=== PATIENT | male | born 1980 | race Caucasian/White ===

== ENCOUNTER 2017-05-10 17:50 | Emergency (ER) | payer SELFPAY ==
[~2017-05-10 17:50] MED LIST: ALBU8.5H2 IH; AMOX1TAB63 PO; ATEN-156 PO; DOXY100C2 PO; HYDR-690 PO; HYDR25CA5 PO; LEVOTHYROXINE; LVT.05T PO; MECL-124 PO; METO-354 PO; NAPR-243 PO; NAPR550T PO; ONDAN4ODT PO; PNT40TEC PO; PRM25T PO; SCOP1PAT TD; SERT25TA PO; TRIA16.5 NS
--- OUTSIDE RECORDS SUMMARY | 2017-05-10 17:55 | XMS REPORT ---
Author Author [facility] Address [address] [place] [address] Care Team Providers Care Process Safety Specialist Name Role Phone CHELSY MORALES Unavailable PROBLEMS Type Condition ICD9-CM Code MSN41-QI Code Onset Dates Condition Status SNOMED Code Problem Moderate persistent asthma without complication J45.40 Active 685614944 Problem Hypothyroidism, unspecified type E03.9 Active 97746932 ALLERGIES No Information SOCIAL HISTORY Never Assessed PLAN OF CARE VITAL SIGNS MEDICATIONS Unknown Medications RESULTS Name Result Date Reference Range TSH 2016-08-22 TSH 2.740 0.450-4.500 CBC 2016-08-22 WBC 9.7 3.4-10.8 RBC 5.25 4.14-5.80 Hemoglobin 16.0 12.6-17.7 Hematocrit 46.8 37.5-51.0 MCV 89 79-97 MCH 30.5 26.6-33.0 MCHC 34.2 31.5-35.7 RDW 13.4 12.3-15.4 Platelets 311 150-379 Neutrophils 77 Lymphs 17 Monocytes 5 Eos 1 Basos 0 Neutrophils (Absolute) 7.3 1.4-7.0 Lymphs (Absolute) 1.7 0.7-3.1 Monocytes(Absolute) 0.5 0.1-0.9 Eos (Absolute) 0.1 0.0-0.4 Baso (Absolute) 0.0 0.0-0.2 Immature Granulocytes 0 Immature Grans (Abs) 0.0 0.0-0.1 CMP 2016-08-22 Glucose, Serum 104 65-99 BUN 11 6-20 Creatinine, Serum 0.83 0.76-1.27 eGFR If NonAfricn Am 113 >59 eGFR If Africn Am 131 >59 BUN/Creatinine Ratio 13 8-19 Sodium, Serum 141 134-144 Potassium, Serum 4.3 3.5-5.2 Chloride, Serum 102 96-106 Carbon Dioxide, Total 22 18-29 Calcium, Serum 9.9 8.7-10.2 Protein, Total, Serum 7.8 6.0-8.5 Albumin, Serum 4.6 3.5-5.5 Globulin, Total 3.2 1.5-4.5 A/G Ratio 1.4 1.2-2.2 Bilirubin, Total 0.4 0.0-1.2 Alkaline Phosphatase, S 103 39-117 AST (SGOT) 15 0-40 ALT (SGPT) 27 0-44 PROCEDURES Procedure Date Ordered Result Body Site ASSAY THYROID STIM HORMONE August 22, 2016 COMPLETE CBC W/AUTO DIFF WBC August 22, 2016 VENIPUNCT, ROUTINE* August 22, 2016 COMPREHEN METABOLIC PANEL August 22, 2016 IMMUNIZATIONS No Known Immunizations MEDICAL (GENERAL) HISTORY Type Description Date Medical History asthma Medical History hypothyroid Medical History Gerd Surgical History heart cath no interventions Hospitalization History asthma, shortness of breath x4 Hospitalization History chest pain
--- OUTSIDE RECORDS SUMMARY | 2017-05-10 17:55 | XMS REPORT ---
Author Author [facility] Address [address] [place] [address] Care Team Providers Care Herpetologist Name Role Phone CHELSY MORALES Unavailable PROBLEMS Type Condition ICD9-CM Code [id number] Code Onset Dates Condition Status SNOMED Code Problem Moderate persistent asthma without complication J45.40 Active 925404366 Problem Hypothyroidism, unspecified type E03.9 Active [id number] ALLERGIES No Known Allergies SOCIAL HISTORY Never Assessed PLAN OF CARE Activity Details Follow Up 4 Weeks Reason:asthma VITAL SIGNS Height 69 in 2016-08-21 Weight 213.5 lbs 2016-08-21 Temperature 97.7 degrees Fahrenheit 2016-08-21 Heart Rate 72 bpm 2016-08-21 Respiratory Rate 20 2016-08-21 Oximetry 99 % 2016-08-21 BMI 31.52 kg/m2 2016-08-21 Blood pressure systolic 156 mmHg 2016-08-21 Blood pressure diastolic 114 mmHg 2016-08-21 MEDICATIONS Medication Instructions Dosage Frequency Start Date End Date Duration Status Omeprazole 20 mg Orally Once a day take 1 capsules by Oral route before meals 2 times per day 24h Jul, 30 days Active Nebulizer - inhalation every 6 hours as needed as directed Aug, Active Albuterol Sulfate 0.63 mg/3 mL Inhalation every 6 hrs 3 ml as needed 6h Apr, Active Symbicort 160-4.5 mcg/actuation Inhalation Twice a day inhale 2 puffs by inhalation route 2 times per day in the morning and evening 12h Jun, Nov, 30 days Active ProAir HFA 108 (90 Base) MCG/ACT Inhalation every 4 hrs 2 puffs as needed 4h Active PredniSONE 20 MG Orally Once a day 2 tablets 24h Aug, Aug, 5 days Active RESULTS No Results PROCEDURES Procedure Date Ordered Result Body Site MEASURE BLOOD OXYGEN LEVEL August 21, 2016 IMMUNIZATIONS No Known Immunizations MEDICAL (GENERAL) HISTORY Type Description Date Medical History asthma Medical History hypothyroid Medical History Gerd Surgical History heart cath no interventions Hospitalization History asthma, shortness of breath x4 Hospitalization History chest pain
--- OUTSIDE RECORDS SUMMARY | 2017-05-10 17:57 | XMS REPORT | Continuity of Care Document ---
Author Author [facility] Organization [facility] Address Unknown Phone Unavailable Allergies Active Description Code Type Severity Reaction Onset Reported/Identified Relationship to Patient Clinical Status Yes No Known Drug Allergies [id number] Drug Allergy Unknown N/ A 05/04/2011 Medications Problems Date Dx Coded Attending Type Code Diagnosis Diagnosed By 10/05/2011 BELKYS PENA DO 578.1 Blood In Stool 10/05/2011 BELKYS PENA DO 599.70 Hematuria Unspecified 10/05/2011 ANNEL PNEA DOA K 780.4 Dizziness And Giddiness 10/05/2011 ANNEL PENA DOA K 784.0 Headache 10/05/2011 ANNEL PENA DOA K 790.4 Abnormal Lft (elevated) 10/05/2011 ANNEL PENA DOA K 799.22 Irritability 10/05/2011 PENA ANNEL PANCHALA K V58.69 LONG-TERM (CURRENT) USE OF OTHER MEDICATIONS 10/05/2011 BELKYS PENA DO 578.1 Blood In Stool 10/05/2011 ANNEL PENA DOA K 599.70 Hematuria Unspecified 10/05/2011 ANNEL PENA DOA K 780.4 Dizziness And Giddiness 10/05/2011 ANNEL PENA DOA K 784.0 Headache 10/05/2011 ANNEL PENA DOA K 790.4 Abnormal Lft (elevated) 10/05/2011 ANNEL PENA DOA K 799.22 Irritability 10/05/2011 PENA ANNEL PANCHALA K V58.69 LONG-TERM (CURRENT) USE OF OTHER MEDICATIONS 10/05/2011 578.1 Blood In Stool 10/05/2011 599.70 Hematuria Unspecified 10/05/2011 780.4 Dizziness And Giddiness 10/05/2011 784.0 Headache 10/05/2011 790.4 Abnormal Lft (elevated) 10/05/2011 799.22 Irritability 10/05/2011 V58.69 LONG-TERM (CURRENT) USE OF OTHER MEDICATIONS 10/05/2011 578.1 Blood In Stool 10/05/2011 599.70 Hematuria Unspecified 10/05/2011 780.4 Dizziness And Giddiness 10/05/2011 784.0 Headache 10/05/2011 790.4 Abnormal Lft (elevated) 10/05/2011 799.22 Irritability 10/05/2011 V58.69 LONG-TERM (CURRENT) USE OF OTHER MEDICATIONS 10/05/2011 578.1 Blood In Stool 10/05/2011 599.70 Hematuria Unspecified 10/05/2011 780.4 Dizziness And Giddiness 10/05/2011 784.0 Headache 10/05/2011 790.4 Abnormal Lft (elevated) 10/05/2011 799.22 Irritability 10/05/2011 V58.69 LONG-TERM (CURRENT) USE OF OTHER MEDICATIONS 10/05/2011 578.1 Blood In Stool 10/05/2011 599.70 Hematuria Unspecified 10/05/2011 780.4 Dizziness And Giddiness 10/05/2011 784.0 Headache 10/05/2011 790.4 Abnormal Lft (elevated) 10/05/2011 799.22 Irritability 10/05/2011 V58.69 LONG-TERM (CURRENT) USE OF OTHER MEDICATIONS 10/05/2011 MICHELLE MOLINA APRN 578.1 Blood In Stool 10/05/2011 MICHELLE MOLINA APRN 599.70 Hematuria Unspecified 10/05/2011 MICHELLE MOLINA APRN 780.4 Dizziness And Giddiness 10/05/2011 MICHELLE MOLINA APRN 784.0 Headache 10/05/2011 MICHELLE MOLINA APRN 790.4 Abnormal Lft (elevated) 10/05/2011 MICHELLE MOLINA APRN 799.22 Irritability 10/05/2011 MICHELLE MOLINA APRN V58.69 LONG-TERM (CURRENT) USE OF OTHER MEDICATIONS 10/05/2011 BOBBI TELLO APRN R 578.1 Blood In Stool 10/05/2011 BOBBI TELLO APRN R 599.70 Hematuria Unspecified 10/05/2011 JUNAID TELLO APRNINA R 780.4 Dizziness And Giddiness 10/05/2011 BOBBI TELLO APRN R 784.0 Headache 10/05/2011 OMER GUN SYNCHRONIZER, BOBBI R 790.4 Abnormal Lft (elevated) 10/05/2011 OMER GUN SYNCHRONIZER, BOBBI R 799.22 Irritability 10/05/2011 OMER GUN SYNCHRONIZER, BOBBI R V58.69 LONG-TERM (CURRENT) USE OF OTHER MEDICATIONS 10/05/2011 OMER GUN SYNCHRONIZER, BOBBI R 578.1 Blood In Stool 10/05/2011 OMER GUN SYNCHRONIZER, BOBBI R 599.70 Hematuria Unspecified 10/05/2011 OMER GUN SYNCHRONIZER, BOBBI R 780.4 Dizziness And Giddiness 10/05/2011 OMER GUN SYNCHRONIZER, BOBBI R 784.0 Headache 10/05/2011 OMER GUN SYNCHRONIZER, BOBBI R 790.4 Abnormal Lft (elevated) 10/05/2011 OMER BOYERN BOBBI R 799.22 Irritability 10/05/2011 OMER EASTMAN BOBBI R V58.69 LONG-TERM (CURRENT) USE OF OTHER MEDICATIONS 10/05/2011 OMER EASTMAN BOBBI R 578.1 Blood In Stool 10/05/2011 OMER EASTMAN BOBBI R 599.70 Hematuria Unspecified 10/05/2011 OMER EASTMAN, BOBBI R 780.4 Dizziness And Giddiness 10/05/2011 OMER BOYERN, BOBBI R 784.0 Headache 10/05/2011 OMER EASTMAN, BOBBI R 790.4 Abnormal Lft (elevated) 10/05/2011 OMER EASTMAN BOBBI R 799.22 Irritability 10/05/2011 OMER EASTMAN, BOBBI R V58.69 LONG-TERM (CURRENT) USE OF OTHER MEDICATIONS 10/05/2011 KIANNA MENESES MD 578.1 Blood In Stool 10/05/2011 KIANNA MENESES MD 599.70 Hematuria Unspecified 10/05/2011 KIANNA MENESES MD 780.4 Dizziness And Giddiness 10/05/2011 KIANNA MENESES MD 784.0 Headache 10/05/2011 KIANNA MENESES MD 790.4 Abnormal Lft (elevated) 10/05/2011 KIANNA MENESES MD 799.22 Irritability 10/05/2011 KIANNA MENESES MD V58.69 LONG-TERM (CURRENT) USE OF OTHER MEDICATIONS 10/05/2011 KIANNA MENESES MD 578.1 Blood In Stool 10/05/2011 KIANNA MENESES MD 599.70 Hematuria Unspecified 10/05/2011 KIANNA MENESES MD 780.4 Dizziness And Giddiness 10/05/2011 KIANNA MENESES MD 784.0 Headache 10/05/2011 KIANNA MENESES MD 790.4 Abnormal Lft (elevated) 10/05/2011 KIANNA MENESES MD 799.22 Irritability 10/05/2011 KIANNA MENESES MD V58.69 LONG-TERM (CURRENT) USE OF OTHER MEDICATIONS 10/05/2011 KIANNA MENESES MD 578.1 Blood In Stool 10/05/2011 KIANNA MENESES MD 599.70 Hematuria Unspecified 10/05/2011 KIANNA MENESES MD 780.4 Dizziness And Giddiness 10/05/2011 KIANNA MENESES MD 784.0 Headache 10/05/2011 KIANNA MENESES MD 790.4 Abnormal Lft (elevated) 10/05/2011 KIANNA MENESES MD 799.22 Irritability 10/05/2011 KIANNA MENESES MD V58.69 LONG-TERM (CURRENT) USE OF OTHER MEDICATIONS 10/05/2011 KIANNA MENESES MD 578.1 Blood In Stool 10/05/2011 KIANNA MENESES MD 599.70 Hematuria Unspecified 10/05/2011 KIANNA MENESES MD 780.4 Dizziness And Giddiness 10/05/2011 KIANNA MENESES MD 784.0 Headache 10/05/2011 KIANNA MENESES MD 790.4 Abnormal Lft (elevated) 10/05/2011 KIANNA MENESES MD 799.22 Irritability 10/05/2011 KIANNA MENESES MD V58.69 LONG-TERM (CURRENT) USE OF OTHER MEDICATIONS 10/05/2011 KIANNA MENESES MD 578.1 Blood In Stool 10/05/2011 KIANNA MENESES MD 599.70 Hematuria Unspecified 10/05/2011 KIANNA MENESES MD 780.4 Dizziness And Giddiness 10/05/2011 KIANNA MENESES MD 784.0 Headache 10/05/2011 KIANNA MENESES MD 790.4 Abnormal Lft (elevated) 10/05/2011 KIANNA MENESES MD 799.22 Irritability 10/05/2011 KIANNA MENESES MD V58.69 LONG-TERM (CURRENT) USE OF OTHER MEDICATIONS 10/05/2011 BECKY DOANNELA K 578.1 Blood In Stool 10/05/2011 BECKY DO, BELKYS K 599.70 Hematuria Unspecified 10/05/2011 PENA DO, BELKYS K 780.4 Dizziness And Giddiness 10/05/2011 PENA DO BELKYS K 784.0 Headache 10/05/2011 PENA DO, BELKYS K 790.4 Abnormal Lft (elevated) 10/05/2011 PENA DO, BELKYS K 799.22 Irritability 10/05/2011 PENA DO, BELKYS K V58.69 LONG-TERM (CURRENT) USE OF OTHER MEDICATIONS 10/12/2011 PENA DO BELKYS K 300.00 AN ANXIETY UNSPEC 10/12/2011 PENA DO, BELKYS K 300.00 AN ANXIETY UNSPEC 10/12/2011 300.00 AN ANXIETY UNSPEC 10/12/2011 300.00 AN ANXIETY UNSPEC 10/12/2011 300.00 AN ANXIETY UNSPEC 10/12/2011 300.00 AN ANXIETY UNSPEC 10/12/2011 MICHELLE MOLINA APRN 300.00 AN ANXIETY UNSPEC 10/12/2011 BOBBI TELLO APRN 300.00 AN ANXIETY UNSPEC 10/12/2011 BOBBI TELLO APRN 300.00 AN ANXIETY UNSPEC 10/12/2011 BOBBI TELLO APRN R 300.00 AN ANXIETY UNSPEC 10/12/2011 KIANNA MENESES MD 300.00 AN ANXIETY UNSPEC 10/12/2011 KIANNA MENESES MD 300.00 AN ANXIETY UNSPEC 10/12/2011 KIANNA MENESES MD 300.00 AN ANXIETY UNSPEC 10/12/2011 KIANNA MENESES MD 300.00 AN ANXIETY UNSPEC 10/12/2011 KIANNA MENESES MD 300.00 AN ANXIETY UNSPEC 10/12/2011 BECKY PANCHAL BELKYS K 300.00 AN ANXIETY UNSPEC 10/15/2011 PENA DO BELKYS K 242.90 HYPERTHYROIDISM 10/15/2011 PENA DO, BELKYS K 242.90 HYPERTHYROIDISM 10/15/2011 242.90 HYPERTHYROIDISM 10/15/2011 242.90 HYPERTHYROIDISM 10/15/2011 242.90 HYPERTHYROIDISM 10/15/2011 242.90 HYPERTHYROIDISM 10/15/2011 MICHELLE MOLINA APRN 242.90 HYPERTHYROIDISM 10/15/2011 OMER GUN SYNCHRONIZER, BOBBI R 242.90 HYPERTHYROIDISM 10/15/2011 OMER EASTMAN, BOBBI R 242.90 HYPERTHYROIDISM 10/15/2011 OMER BOYERN, BOBBI R 242.90 HYPERTHYROIDISM 10/15/2011 KIANNA MENESES MD 242.90 HYPERTHYROIDISM 10/15/2011 KIANNA MENESES MD 242.90 HYPERTHYROIDISM 10/15/2011 KIANNA MENESES MD 242.90 HYPERTHYROIDISM 10/15/2011 KIANNA MENESES MD 242.90 HYPERTHYROIDISM 10/15/2011 KIANNA MENESES MD 242.90 HYPERTHYROIDISM 10/15/2011 PENA DO, BELKYS K 242.90 HYPERTHYROIDISM 10/19/2011 PENA DO, BELKYS K 786.50 Chest Pain 10/19/2011 PENA DO, BELKYS K 786.50 Chest Pain 10/19/2011 786.50 Chest Pain 10/19/2011 786.50 Chest Pain 10/19/2011 786.50 Chest Pain 10/19/2011 786.50 Chest Pain 10/19/2011 MICHELLE MOLINA APRN 786.50 Chest Pain 10/19/2011 OMER EASTMAN, BOBBI R 786.50 Chest Pain 10/19/2011 OMER EASTMAN, BOBBI R 786.50 Chest Pain 10/19/2011 OMER EASTMAN, BOBBI R 786.50 Chest Pain 10/19/2011 KIANNA MENESES MD 786.50 Chest Pain 10/19/2011 KIANNA MENESES MD 786.50 Chest Pain 10/19/2011 KIANNA MENESES MD 786.50 Chest Pain 10/19/2011 KIANNA MENESES MD 786.50 Chest Pain 10/19/2011 KIANNA MENESES MD 786.50 Chest Pain 10/19/2011 PENA DO, BELKYS K 786.50 Chest Pain 10/24/2011 PENA DO, BELKYS K 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 10/24/2011 PENA DO BELKYS K 311 DEPRESSIVE DISORDER NOT ELSEWHERE CLASSIFIED 10/24/2011 PENA DO BELKYS K 401.1 HYPERTENSION, BENIGN ESSENTIAL 10/24/2011 PENA DO, BELKYS K 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 10/24/2011 PENA DO BELKYS K 311 DEPRESSIVE DISORDER NOT ELSEWHERE CLASSIFIED 10/24/2011 PENA DO, BELKYS K 401.1 HYPERTENSION, BENIGN ESSENTIAL 10/24/2011 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 10/24/2011 311 DEPRESSIVE DISORDER NOT ELSEWHERE CLASSIFIED 10/24/2011 401.1 HYPERTENSION, BENIGN ESSENTIAL 10/24/2011 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 10/24/2011 311 DEPRESSIVE DISORDER NOT ELSEWHERE CLASSIFIED 10/24/2011 401.1 HYPERTENSION, BENIGN ESSENTIAL 10/24/2011 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 10/24/2011 311 DEPRESSIVE DISORDER NOT ELSEWHERE CLASSIFIED 10/24/2011 401.1 HYPERTENSION, BENIGN ESSENTIAL 10/24/2011 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 10/24/2011 311 DEPRESSIVE DISORDER NOT ELSEWHERE CLASSIFIED 10/24/2011 401.1 HYPERTENSION, BENIGN ESSENTIAL 10/24/2011 MICHELLE MOLINA APRN 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 10/24/2011 MICHELLE MOLINA APRN 311 DEPRESSIVE DISORDER NOT ELSEWHERE CLASSIFIED 10/24/2011 MICHELLE MOLINA APRN 401.1 HYPERTENSION, BENIGN ESSENTIAL 10/24/2011 OMER EASTMAN, BOBBI R 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 10/24/2011 OMER EASTMAN, BOBBI R 311 DEPRESSIVE DISORDER NOT ELSEWHERE CLASSIFIED 10/24/2011 OMER EASTMAN BOBBI R 401.1 HYPERTENSION, BENIGN ESSENTIAL 10/24/2011 OMER GUN SYNCHRONIZER, BOBBI R 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 10/24/2011 OMER EASTMAN, BOBBI R 311 DEPRESSIVE DISORDER NOT ELSEWHERE CLASSIFIED 10/24/2011 OMER EASTMAN BOBBI R 401.1 HYPERTENSION, BENIGN ESSENTIAL 10/24/2011 OMER GUN SYNCHRONIZER, BOBBI R 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 10/24/2011 MOER EASTMAN, BOBBI R 311 DEPRESSIVE DISORDER NOT ELSEWHERE CLASSIFIED 10/24/2011 OMER EASTMAN BOBBI R 401.1 HYPERTENSION, BENIGN ESSENTIAL 10/24/2011 KIANNA MENESES MD 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 10/24/2011 KIANNA MENESES MD 311 DEPRESSIVE DISORDER NOT ELSEWHERE CLASSIFIED 10/24/2011 KIANNA MENESES MD 401.1 ESSENTIAL HYPERTENSION BENIGN 10/24/2011 KIANNA MENESES MD 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 10/24/2011 KIANNA MENESES MD 311 DEPRESSIVE DISORDER NOT ELSEWHERE CLASSIFIED 10/24/2011 KIANNA MENESES MD 401.1 ESSENTIAL HYPERTENSION BENIGN 10/24/2011 KIANNA MENESES MD 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 10/24/2011 KIANNA MENESES MD 311 DEPRESSIVE DISORDER NOT ELSEWHERE CLASSIFIED 10/24/2011 KIANNA MENESES MD 401.1 ESSENTIAL HYPERTENSION BENIGN 10/24/2011 KIANNA MENESES MD 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 10/24/2011 KIANNA MENESES MD 311 DEPRESSIVE DISORDER NOT ELSEWHERE CLASSIFIED 10/24/2011 KIANNA MENESES MD 401.1 ESSENTIAL HYPERTENSION BENIGN 10/24/2011 KIANNA MENESES MD 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 10/24/2011 KIANNA MENESES MD 311 DEPRESSIVE DISORDER NOT ELSEWHERE CLASSIFIED 10/24/2011 KIANNA MENESES MD 401.1 ESSENTIAL HYPERTENSION BENIGN 10/24/2011 PENA DO, BELKYS K 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 10/24/2011 PENA DO, BELKYS K 311 DEPRESSIVE DISORDER NOT ELSEWHERE CLASSIFIED 10/24/2011 PENA DO, BELKYS K 401.1 HYPERTENSION, BENIGN ESSENTIAL 01/02/2012 PENA DO, BELKYS K 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 01/02/2012 KIANNA MENESES MD 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 01/02/2012 ZAIRA ROBERTS, KIANNA Renner 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 01/02/2012 PENA DO, BELKYS K 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 03/15/2012 PENA DO, BELKYS K 461.9 SINUSITIS ACUTE 03/15/2012 PENA DO, BELKYS K 466.0 Bronchitis, Acute 03/15/2012 PENA DO, BELKYS K 461.9 SINUSITIS ACUTE 03/15/2012 PENA DO, BELKYS K 466.0 Bronchitis, Acute 03/15/2012 461.9 SINUSITIS ACUTE 03/15/2012 466.0 Bronchitis, Acute 03/15/2012 461.9 SINUSITIS ACUTE 03/15/2012 466.0 Bronchitis, Acute 03/15/2012 461.9 SINUSITIS ACUTE 03/15/2012 466.0 Bronchitis, Acute 03/15/2012 461.9 SINUSITIS ACUTE 03/15/2012 466.0 Bronchitis, Acute 03/15/2012 JESSE GUN SYNCHRONIZERMICHELLE Marie 461.9 SINUSITIS ACUTE 03/15/2012 MICHELLE MOLINA APRN 466.0 Bronchitis, Acute 03/15/2012 OMER GUN SYNCHRONIZER, BOBBI R 461.9 SINUSITIS ACUTE 03/15/2012 OMER GUN SYNCHRONIZER, BOBBI R 466.0 Bronchitis, Acute 03/15/2012 OMER GUN SYNCHRONIZER, BOBBI R 461.9 SINUSITIS ACUTE 03/15/2012 OMER GUN SYNCHRONIZER, BOBBI R 466.0 Bronchitis, Acute 03/15/2012 OMER GUN SYNCHRONIZER, BOBBI R 461.9 SINUSITIS ACUTE 03/15/2012 OMER GUN SYNCHRONIZER, BOBBI R 466.0 Bronchitis, Acute 03/15/2012 KIANNA MENESES MD 461.9 SINUSITIS ACUTE 03/15/2012 KIANNA MENESES MD 466.0 Bronchitis, Acute 03/15/2012 ZAIRA ROBERTS, KIANNA Renner 461.9 SINUSITIS ACUTE 03/15/2012 KIANNA MENESES MD 466.0 Bronchitis, Acute 03/15/2012 KIANNA MENESES MD 461.9 SINUSITIS ACUTE 03/15/2012 KIANNA MENESES MD 466.0 Bronchitis, Acute 03/15/2012 KIANNA MENESES MD 461.9 SINUSITIS ACUTE 03/15/2012 KIANNA MENESES MD 466.0 Bronchitis, Acute 03/15/2012 KIANNA MENESES MD 461.9 SINUSITIS ACUTE 03/15/2012 KIANNA MENESES MD 466.0 Bronchitis, Acute 03/15/2012 PENA DO, BELKYS K 461.9 SINUSITIS ACUTE 03/15/2012 PENA DO, BELKYS K 466.0 Bronchitis, Acute 05/14/2012 PENA DO, BELKYS K 244.9 HYPOTHYROIDISM 05/14/2012 PENA DO, BELKYS K 244.9 HYPOTHYROIDISM 05/14/2012 244.9 HYPOTHYROIDISM 05/14/2012 244.9 HYPOTHYROIDISM 05/14/2012 244.9 HYPOTHYROIDISM 05/14/2012 244.9 HYPOTHYROIDISM 05/14/2012 JESSE GUN SYNCHRONIZER, MICHELLE M 244.9 HYPOTHYROIDISM 05/14/2012 OMER EASTMAN BOBBI R 244.9 HYPOTHYROIDISM 05/14/2012 OMER EASTMAN BOBBI R 244.9 HYPOTHYROIDISM 05/14/2012 OMER EASTMAN BOBBI R 244.9 HYPOTHYROIDISM 05/14/2012 KIANNA MENESES MD 244.9 HYPOTHYROIDISM 05/14/2012 KIANNA MENESES MD 244.9 HYPOTHYROIDISM 05/14/2012 KIANNA MENESES MD 244.9 HYPOTHYROIDISM 05/14/2012 KIANNA MENESES MD 244.9 HYPOTHYROIDISM 05/14/2012 KIANNA MENESES MD 244.9 HYPOTHYROIDISM 05/14/2012 PENA DO, BELKYS K 244.9 HYPOTHYROIDISM 06/13/2012 PENA DO, BELKYS K 466.0 BRONCHITIS, ACUTE 06/13/2012 PENA DO, BELKYS K 569.3 RECTAL BLEEDING 06/13/2012 PENA DO, BELKYS K 786.07 WHEEZING 06/13/2012 PENA DO, BELKYS K 786.09 DYSPNEA 06/13/2012 PENA DO, BELKYS K 786.2 COUGH 06/13/2012 PENA DO, BELKYS K 466.0 BRONCHITIS, ACUTE 06/13/2012 PENA DO, BELKYS K 569.3 RECTAL BLEEDING 06/13/2012 PENA DO, BELKYS K 786.07 WHEEZING 06/13/2012 PENA DO, BELKYS K 786.09 DYSPNEA 06/13/2012 PENA DO, BELKYS K 786.2 COUGH 06/13/2012 466.0 BRONCHITIS, ACUTE 06/13/2012 569.3 RECTAL BLEEDING 06/13/2012 786.07 WHEEZING 06/13/2012 786.09 DYSPNEA 06/13/2012 786.2 COUGH 06/13/2012 466.0 BRONCHITIS, ACUTE 06/13/2012 569.3 RECTAL BLEEDING 06/13/2012 786.07 WHEEZING 06/13/2012 786.09 DYSPNEA 06/13/2012 786.2 COUGH 06/13/2012 466.0 BRONCHITIS, ACUTE 06/13/2012 569.3 RECTAL BLEEDING 06/13/2012 786.07 WHEEZING 06/13/2012 786.09 DYSPNEA 06/13/2012 786.2 COUGH 06/13/2012 466.0 BRONCHITIS, ACUTE 06/13/2012 569.3 RECTAL BLEEDING 06/13/2012 786.07 WHEEZING 06/13/2012 786.09 DYSPNEA 06/13/2012 786.2 COUGH 06/13/2012 MOLINA GUN SYNCHRONIZER, MICHELLE M 466.0 BRONCHITIS, ACUTE 06/13/2012 MOLINA GUN SYNCHRONIZER, MICHELLE M 569.3 RECTAL BLEEDING 06/13/2012 MOLINA GUN SYNCHRONIZER, MICHELLE M 786.07 WHEEZING 06/13/2012 MOLINA GUN SYNCHRONIZER, MICHELLE M 786.09 DYSPNEA 06/13/2012 MOLINA GUN SYNCHRONIZER, MICHELLE M 786.2 COUGH 06/13/2012 OMER GUN SYNCHRONIZER, BOBBI R 466.0 BRONCHITIS, ACUTE 06/13/2012 OMER GUN SYNCHRONIZER, BOBBI R 569.3 RECTAL BLEEDING 06/13/2012 OMER GUN SYNCHRONIZER, BOBBI R 786.07 WHEEZING 06/13/2012 OMER GUN SYNCHRONIZER, BOBBI R 786.09 DYSPNEA 06/13/2012 OMER GUN SYNCHRONIZER, BOBBI R 786.2 COUGH 06/13/2012 OMER GUN SYNCHRONIZER, BOBBI R 466.0 BRONCHITIS, ACUTE 06/13/2012 OMER GUN SYNCHRONIZER, BOBBI R 569.3 RECTAL BLEEDING 06/13/2012 OMER GUN SYNCHRONIZER, BOBBI R 786.07 WHEEZING 06/13/2012 OMER GUN SYNCHRONIZER, BOBBI R 786.09 DYSPNEA 06/13/2012 OMER GUN SYNCHRONIZER, BOBBI R 786.2 COUGH 06/13/2012 OMER GUN SYNCHRONIZER, BOBBI R 466.0 BRONCHITIS, ACUTE 06/13/2012 OMER GUN SYNCHRONIZER, BOBBI R 569.3 RECTAL BLEEDING 06/13/2012 OMER GUN SYNCHRONIZER, BOBBI R 786.07 WHEEZING 06/13/2012 OMER GUN SYNCHRONIZER, BOBBI R 786.09 DYSPNEA 06/13/2012 OMER GUN SYNCHRONIZER, BOBBI R 786.2 COUGH 06/13/2012 ZAIRA ROBERTS, KIANNA Renner 466.0 BRONCHITIS, ACUTE 06/13/2012 ZAIRA ROBERTS, KIANNA Renner 569.3 RECTAL BLEEDING 06/13/2012 ZAIRA ROBERTS, KIANNA D 786.07 WHEEZING 06/13/2012 ZAIRA ROBERTS, KIANNA D 786.09 DYSPNEA 06/13/2012 ZAIRA ROBERTS, KIANNA D 786.2 COUGH 06/13/2012 ZAIRA ROBERTS, KIANNA Renner 466.0 BRONCHITIS, ACUTE 06/13/2012 KIANNA MENESES MD 569.3 RECTAL BLEEDING 06/13/2012 ZAIRA ROBERTS, KIANNA D 786.07 WHEEZING 06/13/2012 ZAIRA ROBERTS, KIANNA Renner 786.09 DYSPNEA 06/13/2012 ZAIRA ROBERTS, KIANNA D 786.2 COUGH 06/13/2012 KIANNA MENESES MD 466.0 BRONCHITIS, ACUTE 06/13/2012 ZAIRA ROBERTS, KIANNA Renner 569.3 RECTAL BLEEDING 06/13/2012 ZAIRA ROBERTS KIANNA D 786.07 WHEEZING 06/13/2012 ZAIRA ROBERTS, KIANNA Renner 786.09 DYSPNEA 06/13/2012 ZAIRA ROBERTS, KIANNA Renner 786.2 COUGH 06/13/2012 KIANNA MENESES MD 466.0 BRONCHITIS, ACUTE 06/13/2012 ZAIRA ROBERTS, KIANNA Renner 569.3 RECTAL BLEEDING 06/13/2012 ZAIRA ROBERTS, KIANNA Renner 786.07 WHEEZING 06/13/2012 KIANNA MENESES MD 786.09 DYSPNEA 06/13/2012 KIANNA MENESES MD 786.2 COUGH 06/13/2012 KIANNA MENESES MD 466.0 BRONCHITIS, ACUTE 06/13/2012 KIANNA MENESES MD 569.3 RECTAL BLEEDING 06/13/2012 KIANNA MENESES MD 786.07 WHEEZING 06/13/2012 KIANNA MENESES MD 786.09 DYSPNEA 06/13/2012 ZAIRA ROBERTS, KIANNA Renner 786.2 COUGH 08/07/2012 BECKY PANCHAL, BELKYS Santamaria 786.50 CHEST PAIN 08/07/2012 786.50 CHEST PAIN 08/07/2012 786.50 CHEST PAIN 08/07/2012 786.50 CHEST PAIN 08/07/2012 786.50 CHEST PAIN 08/07/2012 MICHELLE MOLINA APRN 786.50 CHEST PAIN 08/07/2012 BOBBI TELLO APRN 786.50 CHEST PAIN 08/07/2012 OMER GUN SYNCHRONIZER, BOBBI R 786.50 CHEST PAIN 08/07/2012 OMER EASTMAN, BOBBI R 786.50 CHEST PAIN 08/07/2012 KIANNA MENESES MD 786.50 CHEST PAIN 08/07/2012 KIANNA MENESES MD 786.50 CHEST PAIN 08/07/2012 KIANNA MENESES MD 786.50 CHEST PAIN 08/07/2012 KIANNA MENESES MD 786.50 CHEST PAIN 08/07/2012 KIANNA MENESES MD 786.50 CHEST PAIN 06/06/2013 OMER EASTMAN, BOBBI R 787.01 NAUSEA WITH VOMITING 06/06/2013 OMER EASTMAN, BOBBI R 787.60 FULL INCONTINENCE OF FECES 06/06/2013 OMER EASTMAN, BOBBI R 787.01 NAUSEA WITH VOMITING 06/06/2013 OMER EASTMAN, BOBBI R 787.60 FULL INCONTINENCE OF FECES 06/06/2013 OMER EASTMAN, BOBBI R 787.01 NAUSEA WITH VOMITING 06/06/2013 OMER EASTMAN, BOBBI R 787.60 FULL INCONTINENCE OF FECES 06/06/2013 KIANNA MENESES MD 787.01 NAUSEA WITH VOMITING 06/06/2013 KIANNA MENESES MD 787.60 FULL INCONTINENCE OF FECES 06/06/2013 KIANNA MENESES MD 787.01 NAUSEA WITH VOMITING 06/06/2013 KIANNA MENESES MD 787.60 FULL INCONTINENCE OF FECES 06/06/2013 KIANNA MENESES MD 787.01 NAUSEA WITH VOMITING 06/06/2013 KIANNA MENESES MD 787.60 FULL INCONTINENCE OF FECES 06/06/2013 KIANNA MENESES MD 787.01 NAUSEA WITH VOMITING 06/06/2013 KIANNA MENESES MD 787.60 FULL INCONTINENCE OF FECES 06/06/2013 KIANNA MENESES MD 787.01 NAUSEA WITH VOMITING 06/06/2013 KIANNA MENESES MD 787.60 FULL INCONTINENCE OF FECES 10/22/2013 OMER EASTMAN, BOBBI R 786.39 OTHER HEMOPTYSIS 10/22/2013 KIANNA MENESES MD 786.39 OTHER HEMOPTYSIS 10/22/2013 KIANNA MENESES MD 786.39 OTHER HEMOPTYSIS 10/22/2013 KIANNA MENESES MD 786.39 OTHER HEMOPTYSIS 10/22/2013 KIANNA MENESES MD 786.39 OTHER HEMOPTYSIS 10/22/2013 KIANNA MENESES MD 786.39 OTHER HEMOPTYSIS 12/09/2013 KIANNA MENESES MD 493.92 ASTHMA WITH ACUTE EXACERBATION 12/09/2013 KIANNA MENESES MD 799.02 HYPOXIA 12/09/2013 KIANNA MENESES MD 493.92 ASTHMA WITH ACUTE EXACERBATION 12/09/2013 KIANNA MENESES MD 799.02 HYPOXIA 12/09/2013 KIANNA MENESES MD 493.92 ASTHMA WITH ACUTE EXACERBATION 12/09/2013 KIANNA MENESES MD 799.02 HYPOXIA 12/09/2013 KIANNA MENESES MD 493.92 ASTHMA WITH ACUTE EXACERBATION 12/09/2013 KIANNA MENESES MD 799.02 HYPOXIA 12/09/2013 KIANNA MENESES MD 493.92 ASTHMA WITH ACUTE EXACERBATION 12/09/2013 KIANNA MENESES MD 799.02 HYPOXIA 07/13/2014 KIANNA MENESES MD 530.81 GERD Procedures Code [place] [address] ROUTINE VENIPUNCTURE 05/13/2012 07475 THERAPUTIC INJ SQ/IM 05/13/2012 J1040 DEPO MEDROL 80 MG INJ 05/13/2012 58810 TSH 05/14/2012 56558 XRAY CHEST 2 VIEW 06/13/2012 LIZETT KIDD 06/13/2012 98142 ROUTINE VENIPUNCTURE 08/07/2012 64618 XRAY CHEST 2 VIEW 08/07/2012 85986 CMP 08/07/2012 38267 LIPID PANEL 08/07 40073 BNP 08/07/2012 13622 TSH 08/07/2012 22980 CBC 08/07/2012 76879 CRP HS (CARDIO) 08/07/2012 81546 EKG, TRACING (IN-HOUSE) 08/07/2012 97433 PULMONARY FUNCTION TEST (IN-HOUSE) 08/07/2012 SARAHI CORONA 08/07 03776 ECHO 2D 2012 50336 ROUTINE VENIPUNCTURE 11/15/2012 74948 TSH 11/15/2012 00004 OXIMETRY 2012 11999 OXIMETRY 2012 PULMONARY STACY SHUKLA 11/22/2012 15260 OXIMETRY 2012 17562 OXIMETRY 2012 79901 ROUTINE VENIPUNCTURE 06/06/2013 92697 INFLUENZA A & B (IN-HOUSE) 06/06/2013 88026 UA W/ CULTURE IF INDICATED 06/06/2013 21144 CBC 06/06/2013 53269 CMP 06/06/2013 2276618 GFR CALC (RESULT ONLY) 06/06/2013 82823 LIPASE 2012 16632 BNP 06/06/2013 49199 OXIMETRY 2013 Cardiolog Emily Leach 07/17/2013 96462 EKG, TRACING (IN-HOUSE) 09/24/2013 15440 ECHO 2D 2013 35544 XRAY CHEST 2 VIEW 10/22/2013 17978 OXIMETRY 2013 41782 ROUTINE VENIPUNCTURE 02/27/2014 49352 TSH 02/27/2014 Results Encounters ACCT No. Visit Date/Time Discharge Status Pt. Type Provider Facility Loc./Unit Complaint [id number] 10/08/2013 09:47:00 2013 23:59:59 CLS Outpatient [id number] 11/12/2012 10:01:00 2012 18:08:00 DIS Outpatient [id number] 10/28/2012 09:39:00 2012 23:59:59 CLS Outpatient [id number] 05/10/2017 17:52:00 ACT Emergency EDWIN PETER MD [facility] ER TROUBLE BREATHING;WANTS CHECKED FOR MENINGITIS [id number] 07/13/2014 15:58:00 07/13/2014 23: 59:59 CLS Outpatient KIANNA MENESES MD [id number] 02/27/2014 10:40:00 02/27/2014 23: 59:59 CLS Outpatient KIANNA MENESES MD [id number] 01/19/2014 13:44:00 01/19/2014 23: 59:59 CLS Outpatient KIANNA MENESES MD [id number] 12/16/2013 14:02:00 12/16/2013 23: 59:59 CLS Outpatient KIANNA MENESES MD [id number] 12/09/2013 10:27:00 12/09/2013 23: 59:59 CLS Outpatient KIANNA MENESES MD [id number] 10/22/2013 08:50:00 10/22/2013 23: 59:59 CLS Outpatient BOBBI TELLO APRN [id number] 07/10/2013 10:08:00 07/10/2013 23: 59:59 CLS Outpatient OMER GUN SYNCHRONIZERBOBBI Marie [id number] 06/06/2013 14:14:00 06/06/2013 23: 59:59 CLS Outpatient BOBBI TELLO APRN [id number] 03/24/2013 09:45:00 03/24/2013 23: 59:59 CLS Outpatient MICHELLE MOLINA APRN [id number] 08/07/2012 09:32:00 08/07/2012 23: 59:59 CLS Outpatient BELKYS PENA DO [id number] 06/13/2012 08:35:00 06/13/2012 23: 59:59 [place] [id number] 05/13/2012 10:13:00 05/13/2012 23: 59:59 CLS Outpatient BELKYS PENA DO [id number] 12/13/2012 13:15:00 Document Registration [id number] 11/22/2012 11:11:00 Document Registration [id number] 11/15/2012 10:57:00 Document Registration [id number] 10/16/2012 11:41:00 Document Registration
[2017-05-11] MEDS ORDERED: PRD20T PO (12:06)
== END 2017-05-10 18:30 | disposition left against medical advice (07) ==
LOC: EDUNIT# 17:50 → ER 17:52
DX: R06.00 Dyspnea, unspecified (principal)

== ENCOUNTER 2017-05-11 10:11 | Emergency (ER) | payer BC, OTHER ==
[~2017-05-11] VITALS: Ht 175.3 cm; Wt 95.3 kg
--- OUTSIDE RECORDS SUMMARY | 2017-05-11 10:20 | XMS REPORT | Continuity of Care Document ---
Author Author [facility] Organization [facility] Address Unknown Phone Unavailable Allergies Active Description Code Type Severity Reaction Onset Reported/Identified Relationship to Patient Clinical Status Yes No Known Drug Allergies [id number] Drug Allergy Unknown N/ A 05/04/2011 Medications Problems Date Dx Coded Attending Type Code Diagnosis Diagnosed By 10/05/2011 BELKYS PENA DO 578.1 Blood In Stool 10/05/2011 BELKYS PENA DO 599.70 Hematuria Unspecified 10/05/2011 ANNEL PENA DOA [...] TELLO APRN R 784.0 Headache 10/05/2011 OMER FUEL INJECTION SERVICER, BOBBI R 790.4 Abnormal Lft (elevated) 10/05/2011 OMER FUEL INJECTION SERVICER, BOBBI R 799.22 Irritability 10/05/2011 OMER FUEL INJECTION SERVICER, BOBBI R V58.69 LONG-TERM (CURRENT) USE OF OTHER MEDICATIONS 10/05/2011 OMER FUEL INJECTION SERVICER, BOBBI R 578.1 Blood In Stool 10/05/2011 OMER FUEL INJECTION SERVICER, BOBBI R 599.70 Hematuria Unspecified 10/05/2011 OMER FUEL INJECTION SERVICER, BOBBI R 780.4 Dizziness And Giddiness 10/05/2011 OMER FUEL INJECTION SERVICER, BOBBI R 784.0 Headache 10/05/2011 OMER FUEL INJECTION SERVICER, BOBBI R 790.4 Abnormal Lft (elevated) 10/05/2011 [...] MICHELLE MOLINA APRN 242.90 HYPERTHYROIDISM 10/15/2011 OMER FUEL INJECTION SERVICER, BOBBI R 242.90 HYPERTHYROIDISM 10/15/2011 OMER EASTMAN, [...] DO, BELKYS K 786.50 Chest Pain 10/24/2011 PNEA DO, BELKYS K 242.00 TOXIC DIFFUSE GOITER [...] R 401.1 HYPERTENSION, BENIGN ESSENTIAL 10/24/2011 OMER FUEL INJECTION SERVICER, BOBBI R 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 10/24/2011 OMER EASTMAN, BOBBI R 311 DEPRESSIVE DISORDER NOT ELSEWHERE CLASSIFIED 10/24/2011 OMER EASTMAN BOBBI R 401.1 HYPERTENSION, BENIGN ESSENTIAL 10/24/2011 OMER FUEL INJECTION SERVICER, BOBBI R 242.00 TOXIC 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 [...] MENESES MD 401.1 ESSENTIAL HYPERTENSION BENIGN 10/24/2011 BELKYS PENA DO K 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 10/24/2011 ANNEL PENA DOA K 311 DEPRESSIVE DISORDER NOT ELSEWHERE CLASSIFIED 10/24/2011 ANNEL PENA DOA K 401.1 HYPERTENSION, BENIGN ESSENTIAL 12/23/2011 Ot 787.01 NAUSEA WITH VOMITING 01/02/2012 BECKY PANCHAL BELKYS K 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 01/02/2012 BECKY PANCHAL BELKYS K 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 01/02/2012 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 01/02/2012 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 01/02/2012 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 01/02/2012 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 01/02/2012 MICHELLE MOLINA APRN 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 01/02/2012 BOBBI TELLO APRN R 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 01/02/2012 BOBBI TELLO APRN 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 01/02/2012 BOBBI TELLO APRN R 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 01/02/2012 KIANNA MENESES MD 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 01/02/2012 KIANNA MENESES MD 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 01/02/2012 KIANNA MENESES MD 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 01/02/2012 KIANNA MENESES MD 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 01/02/2012 KIANNA MENESES MD 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 01/02/2012 BECKY PANCHAL BELKYS K 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 01/08/2012 Ot 242.90 THYROTOX NOS NO CRISIS 01/08/2012 Ot 786.50 CHEST PAIN NOS 01/08/2012 Ot 786.52 PAINFUL RESPIRATION 01/14/2012 Ot 300.00 ANXIETY STATE NOS 01/14/2012 Ot 786.50 CHEST PAIN NOS 01/14/2012 Ot 786.52 PAINFUL RESPIRATION 01/19/2012 Ot 242.90 THYROTOX NOS NO CRISIS 01/19/2012 Ot 786.50 CHEST PAIN NOS 01/28/2012 Ot 242.90 THYROTOX NOS NO CRISIS 01/28/2012 Ot 305.1 TOBACCO USE DISORDER 01/28/2012 Ot 311 DEPRESSIVE DISORDER NEC 01/28/2012 Ot 786.52 PAINFUL RESPIRATION 02/20/2012 Ot 305.1 TOBACCO USE DISORDER 02/20/2012 Ot 786.50 CHEST PAIN NOS 02/20/2012 Ot 786.52 PAINFUL RESPIRATION 02/26/2012 Ot 242.00 TOX DIF GOITER NO CRISIS 03/15/2012 PENA BELKYS PANCHAL K 461.9 SINUSITIS ACUTE 03/15/2012 PENA BELKYS PANCHAL K 466.0 Bronchitis, Acute 03/15/2012 PENA BELKYS PANCHAL K 461.9 SINUSITIS ACUTE 03/15/2012 BECKY BELKYS PANCHAL K 466.0 Bronchitis, Acute 03/15/2012 461.9 SINUSITIS ACUTE 03/15/2012 466.0 Bronchitis, Acute 03/15/2012 461.9 SINUSITIS ACUTE 03/15/2012 466.0 Bronchitis, Acute 03/15/2012 461.9 SINUSITIS ACUTE 03/15/2012 466.0 Bronchitis, Acute 03/15/2012 461.9 SINUSITIS ACUTE 03/15/2012 466.0 Bronchitis, Acute 03/15/2012 MICHELLE MOLINA APRN 461.9 SINUSITIS ACUTE 03/15/2012 MICHELLE MOLINA APRN 466.0 Bronchitis, Acute 03/15/2012 OMER EASTMAN, BOBBI R 461.9 SINUSITIS ACUTE 03/15/2012 JUNAID TELLO APRNINA R 466.0 Bronchitis, Acute 03/15/2012 OMER EASTMAN, BOBBI R 461.9 SINUSITIS ACUTE 03/15/2012 OMER FUEL INJECTION SERVICER, BOBBI R 466.0 Bronchitis, Acute 03/15/2012 OMER FUEL INJECTION SERVICER, BOBBI R 461.9 SINUSITIS ACUTE 03/15/2012 OMER FUEL INJECTION SERVICER, BOBBI R 466.0 Bronchitis, Acute 03/15/2012 KIANNA MENESES MD 461.9 SINUSITIS ACUTE 03/15/2012 ZAIRA ROBERTS, KIANNA Renner 466.0 Bronchitis, Acute 03/15/2012 ZAIRA ROBERTS, KIANNA Renner 461.9 SINUSITIS ACUTE 03/15/2012 ZAIRA ROBERTS, KIANNA Renner 466.0 Bronchitis, Acute 03/15/2012 ZAIRA ROBERTS, KIANNA [...] 05/14/2012 244.9 HYPOTHYROIDISM 05/14/2012 244.9 HYPOTHYROIDISM 05/14/2012 MICHELLE MOLINA APRN 244.9 HYPOTHYROIDISM 05/14/2012 OMER BOYERN, BOBBI R 244.9 HYPOTHYROIDISM 05/14/2012 OMER BOYERN, BOBBI R 244.9 HYPOTHYROIDISM 05/14/2012 OMER FUEL INJECTION SERVICER, BOBBI R 244.9 HYPOTHYROIDISM 05/14/2012 KIANNA MENESES MD 244.9 HYPOTHYROIDISM 05/14/2012 KIANNA MENESES MD 244.9 HYPOTHYROIDISM 05/14/2012 KIANNA MENESES MD 244.9 HYPOTHYROIDISM 05/14/2012 KIANNA MENESES MD 244.9 HYPOTHYROIDISM 05/14/2012 KIANNA MENESES MD 244.9 HYPOTHYROIDISM 05/14/2012 PENA DO, BELKYS K 244.9 HYPOTHYROIDISM 05/30/2012 Ot 276.50 VOLUME DEPLETION, UNSPECIFIED 05/30/2012 Ot 787.03 VOMITING ALONE 05/30/2012 Ot 789.07 ABDOMINAL PAIN, GENERALIZED 06/13/2012 PENA DO, BELKYS K 466.0 BRONCHITIS, ACUTE 06/13/2012 PENA DO, BELKYS K 569.3 RECTAL BLEEDING 06/13/2012 PENA DO, BELKYS K 786.07 WHEEZING 06/13/2012 PNEA DO, BELKYS K 786.09 DYSPNEA 06/13/2012 PENA [...] 06/13/2012 786.09 DYSPNEA 06/13/2012 786.2 COUGH 06/13/2012 MICHLELE MOLINA APRN 466.0 BRONCHITIS, ACUTE 06/13/2012 MICHELLE MOLINA APRN 569.3 RECTAL BLEEDING 06/13/2012 MICHELLE MOLINA APRN 786.07 WHEEZING 06/13/2012 MICHELLE MOLINA APRN 786.09 DYSPNEA 06/13/2012 MICHELLE MOLINA APRN 786.2 COUGH 06/13/2012 BOBBI TELLO APRN 466.0 BRONCHITIS, ACUTE 06/13/2012 OMER FUEL INJECTION SERVICER, BOBBI R 569.3 RECTAL BLEEDING 06/13/2012 OMER FUEL INJECTION SERVICER, BOBBI R 786.07 WHEEZING 06/13/2012 OMER FUEL INJECTION SERVICER, BOBBI R 786.09 DYSPNEA 06/13/2012 OMER FUEL INJECTION SERVICER, BOBBI R 786.2 COUGH 06/13/2012 OMER FUEL INJECTION SERVICER, BBOBI R 466.0 BRONCHITIS, ACUTE 06/13/2012 OMER FUEL INJECTION SERVICER, BOBBI R 569.3 RECTAL BLEEDING 06/13/2012 OMER FUEL INJECTION SERVICER, BOBBI R 786.07 WHEEZING 06/13/2012 OMER FUEL INJECTION SERVICER, BOBBI R 786.09 DYSPNEA 06/13/2012 OMER FUEL INJECTION SERVICER, BOBBI R 786.2 COUGH 06/13/2012 OMER FUEL INJECTION SERVICER, BOBBI R 466.0 BRONCHITIS, ACUTE 06/13/2012 OMER FUEL INJECTION SERVICER, BOBBI R 569.3 RECTAL BLEEDING 06/13/2012 OMER FUEL INJECTION SERVICER, BOBBI R 786.07 WHEEZING 06/13/2012 OMER FUEL INJECTION SERVICER, BOBBI R 786.09 DYSPNEA 06/13/2012 OMER FUEL INJECTION SERVICER, BOBBI R 786.2 COUGH 06/13/2012 ZAIRA ROBERTS, KIANNA Renner 466.0 BRONCHITIS, ACUTE 06/13/2012 ZAIRA ROBERTS, KIANNA Renner 569.3 RECTAL BLEEDING 06/13/2012 ZAIRA ROBERTS, KIANNA D 786.07 WHEEZING 06/13/2012 ZAIRA ROBERTS, KIANNA Renner 786.09 DYSPNEA 06/13/2012 ZAIRA ORBERTS, KIANNA D 786.2 COUGH 06/13/2012 ZAIRA ROBERTS, [...] D 786.09 DYSPNEA 06/13/2012 ZAIRA ROBERTS, KIANNA Renner 786.2 COUGH 06/13/2012 ZAIRA ROBERTS, KIANNA Renner 466.0 BRONCHITIS, ACUTE 06/13/2012 KIANNA MENESES MD 569.3 RECTAL BLEEDING 06/13/2012 KIANNA MENESES MD 786.07 WHEEZING 06/13/2012 KIANNA MENESES MD 786.09 DYSPNEA 06/13/2012 KIANNA MENESES MD 786.2 COUGH 06/13/2012 KIANNA MENESES MD 466.0 BRONCHITIS, ACUTE 06/13/2012 KIANNA MENESES MD 569.3 RECTAL BLEEDING 06/13/2012 KIANAN MENESES MD 786.07 WHEEZING 06/13/2012 KIANNA MENESES MD 786.09 DYSPNEA 06/13/2012 KIANNA MENESES MD 786.2 COUGH 06/19/2012 Ot 473.9 CHRONIC SINUSITIS NOS 06/19/2012 Ot 780.2 SYNCOPE AND COLLAPSE 06/19/2012 Ot 780.4 DIZZINESS AND GIDDINESS 08/07/2012 PENA DO, BELKYS K 786.50 CHEST PAIN 08/07/2012 786.50 CHEST PAIN 08/07/2012 786.50 CHEST PAIN 08/07/2012 786.50 CHEST PAIN 08/07/2012 786.50 CHEST PAIN 08/07/2012 MICHELLE MOLINA APRN 786.50 CHEST PAIN 08/07/2012 BOBBI TELLO APRN R 786.50 CHEST PAIN 08/07/2012 BOBBI TELLO APRN R 786.50 CHEST PAIN 08/07/2012 BOBBI TELLO APRN R 786.50 CHEST PAIN 08/07/2012 KIANNA MENESES MD 786.50 CHEST PAIN 08/07/2012 KIANNA MENESES MD 786.50 CHEST PAIN 08/07/2012 KIANNA MENESES MD 786.50 CHEST PAIN 08/07/2012 KIANNA MENESES MD 786.50 CHEST PAIN 08/07/2012 KIANNA MENESES MD 786.50 CHEST PAIN 11/12/2012 BUBBA ROBERTS FACC, EMILY FACP CCDS Ot 244.9 HYPOTHYROIDISM NOS 11/12/2012 BUBBA ROBERTS FACC, EMILY FACP CCDS Ot 272.4 HYPERLIPIDEMIA NEC/NOS 11/12/2012 BUBBA ROBERTS FACC, EMILY FACP CCDS Ot 311 DEPRESSIVE DISORDER NEC 11/12/2012 BUBBA ROBERTS FACC, EMILY FACP CCDS Ot 401.9 HYPERTENSION NOS 11/12/2012 BUBBA ROBERTS FACC, ALI FACP CCDS Ot 786.50 CHEST PAIN NOS 11/12/2012 BUBBA ROBERTS [facility] CCD[facility] Ot V17.49 FAMILY HISTORY OF OTHER CARDIOVASCULAR D 11/12/2012 BUBBA ROBERTS [facility] CCDS Ot V58.69 OTH MED,LT,CURRENT USE 06/06/2013 OMER EASTMAN, BOBBI R 787.01 NAUSEA WITH VOMITING 06/06/2013 OMER EASTMAN BOBBI R 787.60 FULL INCONTINENCE OF FECES 06/06/2013 OMER EASTMAN BOBBI R 787.01 NAUSEA WITH VOMITING 06/06/2013 OMER EASTMAN BOBBI R 787.60 FULL INCONTINENCE OF FECES 06/06/2013 OMER EASTMNA BOBBI R 787.01 NAUSEA WITH VOMITING 06/06/2013 OMER EASTMAN BOBBI R 787.60 FULL INCONTINENCE OF FECES [...] MD 787.01 NAUSEA WITH VOMITING 06/06/2013 KIANNA MEENSES MD 787.60 FULL INCONTINENCE OF FECES 10/22/2013 OMER EASTMAN BOBBI R 786.39 OTHER HEMOPTYSIS 10/22/2013 KIANNA [...] HYPOXIA 07/13/2014 KIANNA MENESES MD 530.81 GERD 05/10/2017 Ot 242.00 TOX DIF GOITER NO CRISIS 05/10/2017 Ot 242.00 TOX DIF GOITER NO CRISIS 05/10/2017 Ot 242.90 THYROTOX NOS NO CRISIS 05/10/2017 Ot 242.00 TOX DIF GOITER NO CRISIS 05/10/2017 SARAHI SAMUEL MD Ot 397.0 TRICUSPID VALVE DISEASE 05/10/2017 SARAHI SAMUEL MD Ot 424.0 MITRAL VALVE DISORDER 05/10/2017 SARAHI SAMUEL MD Ot 786.50 CHEST PAIN NOS 05/10/2017 BUBBA ROBERTS FACEva, EMILY CORRALES CCDS Ot 786.50 CHEST PAIN NOS 05/10/2017 Ot 242.00 TOX DIF GOITER NO CRISIS 05/10/2017 Ot 242.00 TOX DIF GOITER NO CRISIS 05/10/2017 Ot 242.90 THYROTOX NOS NO CRISIS 05/10/2017 Ot 242.00 TOX DIF GOITER NO CRISIS 05/10/2017 SARAHI SAMUEL MD Ot 397.0 TRICUSPID VALVE DISEASE 05/10/2017 SARAHI SAMUEL MD Ot 424.0 MITRAL VALVE DISORDER 05/10/2017 SARAHI SAMUEL MD Ot 786.50 CHEST PAIN NOS 05/10/2017 BUBBA ROBERTS FACEva, EMILY CORRALES CCDS Ot 786.50 CHEST PAIN NOS Procedures Code Description [place] [address] ROUTINE VENIPUNCTURE 05/13/2012 57614 THERAPUTIC INJ SQ/IM 05/13/2012 J1040 DEPO MEDROL 80 MG INJ 05/13/2012 93514 TSH 05/14/2012 26499 XRAY CHEST 2 VIEW 06/13/2012 LIZETT KIDD 06/13/2012 61627 ROUTINE VENIPUNCTURE 08/07/2012 55121 XRAY CHEST 2 VIEW 08/07/2012 10665 CMP 08/07/2012 53075 LIPID PANEL 08/07 00828 BNP 08/07/2012 75759 TSH 08/07/2012 22565 CBC 08/07/2012 26916 CRP HS (CARDIO) 08/07/2012 63150 EKG, TRACING (IN-HOUSE) 08/07/2012 43222 PULMONARY FUNCTION TEST (IN-HOUSE) 08/07/2012 SARAHI CORONA 08/07 68996 ECHO 2D 2012 91395 ROUTINE VENIPUNCTURE 11/15/2012 63293 TSH 11/15/2012 68155 OXIMETRY 2012 11108 OXIMETRY 2012 PULMONARY NAVI SHUKLAUS 11/22/2012 18474 OXIMETRY 2012 37355 OXIMETRY 2012 34930 ROUTINE VENIPUNCTURE 06/06/2013 66065 INFLUENZA A & B (IN-HOUSE) 06/06/2013 55667 UA W/ CULTURE IF INDICATED 06/06/2013 94817 CBC 06/06/2013 14756 CMP 06/06/2013 3571784 GFR CALC (RESULT ONLY) 06/06/2013 44856 LIPASE 2012 66078 BNP 06/06/2013 15003 OXIMETRY 2013 Cardiolog Emily Leach 07/17/2013 68032 EKG, TRACING (IN-HOUSE) 09/24/2013 76526 ECHO 2D 2013 45826 XRAY CHEST 2 VIEW 10/22/2013 44709 OXIMETRY 2013 74850 ROUTINE VENIPUNCTURE 02/27/2014 60964 TSH 02/27/2014 Results Encounters ACCT No. Visit Date/Time Discharge Status Pt. Type Provider Facility Loc./Unit Complaint [id number] 05/10/2017 17:52:00 2016 18:30:00 DIS Emergency ROME ROBERTS, EDWIN Renner [facility] ER TROUBLE BREATHING;WANTS CHECKED FOR MENINGITIS [id number] 10/08/2013 09:47:00 2013 23:59:59 CLS Outpatient BUBBA ROBERTS FACC, ALI FACP CCDS [facility] CARD CHEST PAIN [id number] 11/12/2012 10:01:00 2012 18:08:00 DIS Outpatient BUBBA ROBERTS FACC, ALI FACP CCDS [facility] CATH CP,HTN [id number] 10/28/2012 09:39:00 2012 23:59:59 CLS Outpatient SARAHI SAMUEL MD [facility] CARD CP [id number] 05/11/2017 10:14:00 ACT Emergency EDWIN PETER MD [facility] ER BREATHING ISSUES,ASTHMA-- [id number] 06/18/2012 21:53:00 Document Registration [id number] 05/30/2012 15:52:00 Document Registration [id number] 03/12/2012 10:40:00 Document Registration [id number] 02/27/2012 00:00:00 Document Registration [id number] 02/20/2012 19:38:00 Document Registration [id number] 01/27/2012 23:40:00 Document Registration [id number] 01/19/2012 18:00:00 Document Registration [id number] 01/14/2012 18:51:00 Document Registration [id number] 01/08/2012 19:51:00 Document Registration [id number] 12/23/2011 15:40:00 Document Registration [id number] 12/07/2011 12:34:00 Document Registration [id number] 12/07/2011 12:33:00 Document Registration [id number] 07/13/2014 15:58:00 07/13/2014 23: 59:59 CLS Outpatient KIANNA MENESES MD [id number] 02/27/2014 10:40:00 02/27/2014 23: 59:59 CLS Outpatient KIANNA MENESES MD [id number] 01/19/2014 13:44:00 01/19/2014 23: 59:59 CLS Outpatient KIANNA MENESES MD [id number] 12/16/2013 14:02:00 12/16/2013 23: 59:59 CLS Outpatient KIANNA MENESES MD [id number] 12/09/2013 10:27:00 12/09/2013 23: 59:59 CLS Outpatient KIANNA MENESES MD [id number] 10/22/2013 08:50:00 10/22/2013 23: 59:59 CLS Outpatient BOBBI TELLO APRN [id number] 07/10/2013 10:08:00 07/10/2013 23: 59:59 CLS Outpatient BOBBI TELLO APRN [id number] 06/06/2013 14:14:00 06/06/2013 23: 59:59 CLS Outpatient BOBBI TELLO APRN [id number] 03/24/2013 09:45:00 03/24/2013 23: 59:59 CLS Outpatient MICHELLE MOLINA APRN [id number] 08/07/2012 09:32:00 08/07/2012 23: 59:59 CLS Outpatient BELKYS PENA DO [id number] 06/13/2012 08:35:00 06/13/2012 23: 59:59 [place] [id number] 05/13/2012 10:13:00 05/13/2012 23: 59:59 CLS Outpatient BELKYS PENA DO [id number] 12/13/2012 13:15:00 Document Registration [id number] 11/22/2012 11:11:00 Document Registration [id number] 11/15/2012 10:57:00 Document Registration [id number] 10/16/2012 11:41:00 Document Registration
[2017-05-11] MEDS ORDERED: RT-ALBUTEROL SULF 2.5 MG/3 ML PRE-MIX VIAL INH STA ×2 (10:46→11:36)
[2017-05-11 10:59] LABS: BASOPHILS # (AUTO) 0.1 10^3/uL (0.0-0.1); BASOPHILS % (AUTO) 1 % (0-10); EOSINOPHILS # (AUTO) 1.5 10^3/uL (0.0-0.3); EOSINOPHILS % (AUTO) 18 % (0-10); LYMPHOCYTES # (AUTO) 2.7 X 10^3 (1.0-4.0); LYMPHOCYTES % (AUTO) 34 % (12-44); MEAN CORPUSCULAR HEMOGLOBIN 30 PG (25-34); MEAN CORPUSCULAR HGB CONC 33 G/DL (32-36); MEAN CORPUSCULAR VOLUME 89 FL (80-99); MEAN PLATELET VOLUME 10.1 FL (7.4-10.4); MONOCYTES # (AUTO) 0.6 X 10^3 (0.0-1.0); MONOCYTES % (AUTO) 8 % (0-12); NEUTROPHILS # (AUTO) 3.2 X 10^3 (1.8-7.8); NEUTROPHILS % (AUTO) 40 % (42-75); PLATELET COUNT 265 10^3/uL (130-400); RED BLOOD COUNT 5.16 10^6/uL (4.35-5.85); RED CELL DISTRIBUTION WIDTH 12.6 % (10.0-14.5)
[2017-05-11] MEDS ORDERED: RT-ALBUTEROL/IPRATROPIUM 3 ML (DUONEB) VIAL INH ONE (11:00)
[2017-05-11 11:15] LABS: BAND NEUTROPHILS 0 %; BASOPHILS % (MANUAL) 1 %; EOSINOPHILS % (MANUAL) 17 %; LYMPHOCYTES % (MANUAL) 11 %; NEUTROPHILS % (MANUAL) 39 %; REACTIVE LYMPHOCYTES 29 %
--- NOTE | 2017-05-11 11:16 | ED Respiratory ---
General Chief Complaint: Respiratory Problems Stated Complaint: BREATHING ISSUES,ASTHMA-- Nursing Triage Note: PATIENT STATES HE IS CONTINUING TO HAVING DIFFICULTIES WITH SOB AT REST. HE HAS BEEN COUGHING AND WHEEZING. HE TAKES INHALERS BUT THESE ARE NOT HELPING HIS CURRENT SYMPTOMS. HIS DAD WAS ALSO RECENTLY DIAGNOSED WITH MENINGITIS AND HE WAS TOLD HE NEEDS PROPHYLLAXIS FOR THAT. HE DOES NOT LIVE WITH HIS DAD BUT HAS SEEN HIM IN THE LAST WEEK. HE SAW HIM MOST OF THAT DAY ON SUNDAY AND SUNDAY. HE ALSO SAW HIM LAST SUNDAY. HE STATES HIS NECK RECENTLY STARTED HURTING BUT HE BELIEVES THIS IS RELATED TO HIS WORK. HE STATES HIS SOB IS GETTING WORSE. PREDNISONE PREVIOUSLY PRESCRIBED DID NOT HELP. HE ALSO RECENTLY TRIED HIS SISTER SULMA INHALER AND IT DID NOT HELP EITHER. Exam Limitations: no limitations History of Present Illness Time seen by provider: 10:40 Initial Comments Here with report of wheezing that has been going on for a few weeks intermittently. He has tried his inhalers and has been on prednisone this has not helped. Also has concerns because he has recent exposure to a patient that had Neisseria meningitis. He does not live with that person but has seen him frequently in the past week including on Sunday and Sunday. Patient had Neisseria meningitis of the lungs. Seeking prophylactic treatment. He was unable to get into his clinic and ultimately had to present here for evaluation. Denies fever or chills or nausea and vomiting. Timing/Duration: week, getting worse Severity: moderate Prior Episodes/Possible Cause: occasional episodes Modifying Factors: Improves With Albuterol Inhaler Associated Symptoms: cough, No facial pain, No fever/chills, No lightheadedness , nasal congestion, shortness of breath, No sinus infection, No sore throat, wheezing Allergies and Home Medications Allergies Coded Allergies: No Known Drug Allergies (Unverified , 05/04/11) Home Medications Albuterol 8.5 Gm Hfa.aer.ad, 2 PUFF IH Q4H, (Reported) 2 PUFFS Atenolol 50 Mg Tablet, 50 MG PO DAILY, (Reported) Levothyroxine Sodium 50 Mcg Tablet, 50 MCG PO DAILY, (Reported) Sertraline Hcl 25 Mg Tablet, 25 MG PO DAILY, (Reported) Constitutional: see HPI, No chills, No fever EENTM: see HPI Respiratory: see HPI Cardiovascular: no symptoms reported Gastrointestinal: no symptoms reported, No diarrhea, No nausea, No vomiting Genitourinary: no symptoms reported Musculoskeletal: no symptoms reported Skin: no symptoms reported Psychiatric/Neurological: No Symptoms Reported All Other Systems Reviewed Negative Unless Noted: Yes Past Hlzjgzv-Cygoou-Jjzbqx Hx Patient Social History Alcohol Use: Denies Use Recreational Drug Use: No Smoking Status: Never a Smoker 2nd Hand Smoke Exposure: No Recent Foreign Travel: No Contact w/Someone Who Travel: No Recent Infectious Disease Expo: No Recent Hopitalizations: Yes Physical Abuse: No Sexual Abuse: No Surgeries History of Surgeries: Yes (HEART CATH 2011) Respiratory History of Respiratory Disorde: Yes (has rescue inhaler is not aware of having asthma) Cardiovascular History of Cardiac Disorders: No Neurological History of Neurological Disord: No Reproductive System Hx Reproductive Disorders: No Genitourinary History of Genitourinary Disor: No Gastrointestinal History of Gastrointestinal Di: No Musculoskeletal History of Musculoskeletal Dis: No Endocrine History of Endocrine Disorders: No Endocrine Disorders: Hyperthyroidism HEENT History of HEENT Disorders: No Cancer History of Cancer: No Psychosocial History of Psychiatric Problem: No Behavioral Health Disorders: Anxiety Suicide Risk Score: 0 Blood Transfusions History of Blood Disorders: No Reviewed Nursing Assessment Reviewed/Agree w Nursing PMH: Yes Physical Exam Vital Signs Vital Sign - Last 12Hours 05/11/17 10:18 Temp 96.8 Pulse 83 Resp 24 B/P (MAP) 143/98 (113) Pulse Ox 98 O2 Delivery Room Air Capillary Refill : Less Than 3 Seconds General Appearance: WD/WN, no apparent distress HEENT: PERRL/EOMI, pharynx normal Neck: full range of motion, supple Respiratory: no accessory muscle use, decreased breath sounds, wheezing Cardiovascular: regular rate, rhythm, no murmur Gastrointestinal: non tender, soft Extremities: non-tender, normal inspection Neurologic/Psychiatric: alert, oriented x 3 Skin: normal color, warm/dry Progress/Results/Core Measures Suspected Sepsis Recent Fever Within 48 Hours: No Infection Criteria Present: Suspected New Infection New/Unexplained Altered Menta: No Sepsis Screen: No Definite Risk Sepsis Diagnosis: SIRS Temperature:96.8 Pulse: 83 Respiratory Rate: 24 Laboratory Tests 05/11/17 10:51: White Blood Count 8.0 Blood Pressure 143 /98 Mean: 113 Laboratory Tests 05/11/17 10:51: Creatinine 0.85, Platelet Count 265, Total Bilirubin 0.4 Results/Orders Lab Results Laboratory Tests Test 05/11/17 10:51 Range/Units White Blood Count 8.0 4.3-11.0 10^3/uL Red Blood Count 5.16 4.35-5.85 10^6/uL Hemoglobin 15.4 13.3-17.7 G/DL Hematocrit 46 40-54 % Mean Corpuscular Volume 89 80-99 FL Mean Corpuscular Hemoglobin 30 25-34 PG Mean Corpuscular Hemoglobin Concent 33 32-36 G/DL Red Cell Distribution Width 12.6 10.0-14.5 % Platelet Count 265 130-400 10^3/uL Mean Platelet Volume 10.1 7.4-10.4 FL Neutrophils (%) (Auto) 40 L 42-75 % Lymphocytes (%) (Auto) 34 12-44 % Monocytes (%) (Auto) 8 0-12 % Eosinophils (%) (Auto) 18 H 0-10 % Basophils (%) (Auto) 1 0-10 % Neutrophils # (Auto) 3.2 1.8-7.8 X 10^3 Lymphocytes # (Auto) 2.7 1.0-4.0 X 10^3 Monocytes # (Auto) 0.6 0.0-1.0 X 10^3 Eosinophils # (Auto) 1.5 H 0.0-0.3 10^3/uL Basophils # (Auto) 0.1 0.0-0.1 10^3/uL Neutrophils % (Manual) 39 % Lymphocytes % (Manual) 11 % Monocytes % (Manual) 3 % Eosinophils % (Manual) 17 % Basophils % (Manual) 1 % Band Neutrophils 0 % Reactive Lymphocytes 29 % Blood Morphology Comment NORMAL Sodium Level 138 135-145 MMOL/L Potassium Level 3.6 3.6-5.0 MMOL/L Chloride Level 102 98-107 MMOL/L Carbon Dioxide Level 29 21-32 MMOL/L Anion Gap 7 5-14 MMOL/L Blood Urea Nitrogen 12 7-18 MG/DL Creatinine 0.85 0.60-1.30 MG/DL Estimat Glomerular Filtration Rate > 60 BUN/Creatinine Ratio 14 Glucose Level 70 70-105 MG/DL Calcium Level 9.5 8.5-10.1 MG/DL Total Bilirubin 0.4 0.1-1.0 MG/DL Aspartate Amino Transf (AST/SGOT) 17 5-34 U/L Alanine Aminotransferase (ALT/SGPT) 22 0-55 U/L Alkaline Phosphatase 105 40-136 U/L C-Reactive Protein High Sensitivity 0.37 0.00-0.50 MG/DL Total Protein 8.3 H 6.4-8.2 GM/DL Albumin 4.3 3.2-4.5 GM/DL My Orders Orders - EDWIN PETER MD Cbc With Automated Diff (05/11/17 10:46) Comprehensive Metabolic Panel (05/11/17 10:46) Hs C Reactive Protein (05/11/17 10:46) Chest Pa/Lat (2 View) (05/11/17 10:46) Saline Lock/Iv-Start (05/11/17 10:46) Albuterol Pre-Mix Nebs (Rt) (Proventil (05/11/17 10:46) Albuterol/Ipra Inhalation Soln (Duoneb I (05/11/17 11:00) Svn Sm Volume Nebulizer Rt-Rfs (05/11/17 10:46) Svn Sm Volume Nebulizer Rt-Rfs (05/11/17 10:46) Manual Differential (05/11/17 10:51) Albuterol Pre-Mix Nebs (Rt) (Proventil (05/11/17 11:36) Svn Sm Volume Nebulizer Rt-Rfs (05/11/17 11:36) Ciprofloxacin Tablet (Cipro Tablet) (05/11/17 11:45) Prednisone Tablet (Deltasone Tablet) (05/11/17 12:15) Medications Given in ED Current Medications Medications Dose Ordered Sig/Anatoly Route Start Time Stop Time Status Last Admin Dose Admin Albuterol/ Ipratropium 3 ml ONCE ONCE INH 05/11/17 11:00 05/11/17 11:01 DC 05/11/17 11:07 3 ML Vital Signs/I&O Vital Sign - Last 12Hours 05/11/17 05/11/17 05/11/17 05/11/17 10:18 11:07 11:13 11:42 Temp 96.8 Pulse 83 Resp 24 B/P (MAP) 143/98 (113) Pulse Ox 98 99 97 98 O2 Delivery Room Air Room Air Room Air Room Air Capillary Refill : Less Than 3 Seconds Blood Pressure Mean: 113 Progress Note : Progress Note Seen and evaluated. IV, labs and chest x-ray ordered. DuoNeb and albuterol treatment ordered. 1115: Treatments are complete and he is a little better. Pending x-ray. 1200: Repeat albuterol 2. Patient at baseline and states feels much better. No indication of infection. Patient did receive Cipro 500 mg by mouth as prophylactic dosing for Neisseria meningitis exposure. Discharged home with return precautions. Patient verbalize understanding instructions and agreement with plan. Departure Impression Impression: Primary Impression: Asthma exacerbation Qualified Codes: J45.41 - Moderate persistent asthma with (acute) exacerbation Additional Impression: Meningitis exposure Disposition: HOME, SELF-CARE Condition: Improved Departure-Patient Inst. Decision time for Depature: 12:04 Referrals: [facility] (PCP) Primary Care Physician CHELSY MORALES (Family) Primary Care Physician Patient Instructions: Asthma, Adult (DC) Add. Discharge Instructions: All discharge instructions reviewed with patient and/or family. Voiced understanding. Take medications as directed. Follow-up with your doctor as scheduled. Return for worse pain, fever, vomiting, weakness, breathing problems or other concerns as needed. Scripts Prednisone (Prednisone) 20 Mg Tab 40 MG PO DAILY, #12 TAB 0 Refills Prov: EDWIN PETER MD 05/11/17 Copy Copies To 1: BELKYS PENA TIMOTHY D MD May 11, 2017 11:16
[2017-05-11 11:20] LABS: ALANINE AMINOTRANSFERASE 22 U/L (0-55); ALBUMIN 4.3 GM/DL (3.2-4.5); ANION GAP 7 MMOL/L (5-14); ASPARTATE AMINO TRANSFERASE 17 U/L (5-34); BILIRUBIN,TOTAL 0.4 MG/DL (0.1-1.0); BLOOD UREA NITROGEN 12 MG/DL (7-18); BUN/CREATININE RATIO 14; CALCIUM 9.5 MG/DL (8.5-10.1); CARBON DIOXIDE 29 MMOL/L (21-32); CHLORIDE 102 MMOL/L (98-107); CREATININE SERUM 0.85 MG/DL (0.60-1.30); GFR ESTIMATED > 60; GLUCOSE 70 MG/DL (70-105); POTASSIUM 3.6 MMOL/L (3.6-5.0); SODIUM 138 MMOL/L (135-145); TOTAL PROTEIN 8.3 GM/DL (6.4-8.2); hs C REACTIVE PROTEIN 0.37 MG/DL (0.00-0.50)
[2017-05-11] MEDS ORDERED: CIPROFLOXACIN 500 MG (CIPRO) TABLET PO SCH (11:45)
[2017-05-11] MEDS ORDERED: PRD20T PO (12:06)
[2017-05-11 12:14] VITALS: BP 143/98
[2017-05-11] MEDS ORDERED: predniSONE 20 MG TAB PO ONE (12:15)
--- NOTE | 2017-05-11 12:20 | Diagnostic Imaging Report ---
INDICATION: Exposure to meningitis. Comparison with 06/18/2012. FINDINGS: PA and lateral chest show the lungs to be well aerated. There are no infiltrates. Heart is not enlarged. No hilar adenopathy. No pneumothorax or pleural effusion. No bony abnormalities. IMPRESSION: Normal PA and lateral chest. Dictated by: Dictated on workstation # [id number]
== END 2017-05-11 12:12 | disposition home or self-care (01) ==
LOC: EDUNIT# 10:11 → ER 10:14
DX: J45.901 Unspecified asthma with (acute) exacerbation (principal); F41.9 Anxiety disorder, unspecified; E05.90 Thyrotoxicosis, unspecified without thyrotoxic crisis or storm; Z20.811 Contact with and (suspected) exposure to meningococcus
CPT/HCPCS: 36415; 71020; 80053; 85007; 85027; 86141; 94640

== ENCOUNTER → 2017-05-31 | Outpatient (CLI) | payer BC ==
[~2017-05-31] MED LIST changes: +PRD20T PO
--- NOTE | 2017-05-31 10:56 | Diagnostic Imaging Report ---
INDICATION: ASTHMA DYSPNEA COMPARISON: 05/11/2017 FINDINGS: Frontal and lateral views of the chest demonstrate normal heart size and pulmonary vascularity. The lungs are clear. There are no signs of infiltrate, pleural effusions or pneumothoraces. The visualized osseous structures show no acute abnormalities. IMPRESSION: 1. No acute process. No signs of infiltrates, effusions or pneumothoraces. Dictated by: Dictated on workstation # [id number]
[2017-06-01 06:44] LABS: ALLERGEN INTERP SEE FOOTNOTE; DUST MITE CL CLASS 3; DUST MITE RAST 7.03 H kU/L (<0.35)
[2017-06-01 06:45] LABS: CLADOSPORIUM MOLD RAST 0.47 H kU/L (<0.35)
[2017-06-01 06:48] LABS: BERMUDA GRASS RAST <0.35 kU/L (<0.35); CAT DANDER RAST <0.35 kU/L (<0.35); CLADOSPORIUM CL CLASS 1; ELM TREE <0.35 kU/L (<0.35); JOHNSON GRASS RAST <0.35 kU/L (<0.35); KENTUCKY BLUE GRASS RAST <0.35 kU/L (<0.35); MARSH ELDER RAST <0.35 kU/L (<0.35); OAK TREE <0.35 kU/L (<0.35); RAGWEED RAST <0.35 kU/L (<0.35)
[2017-06-01 06:49] LABS: ALT TEN CL CLASS 0; BERMUDA CL CLASS 0; CAT DANDER CL CLASS 0; DOG DANDER CL CLASS 0; DOG DANDER RAST <0.35 kU/L (<0.35); ELM TREE CL CLASS 0; JOHNSON GR CL CLASS 0; KENT BLUE CL CLASS 0; OAK TREE CL CLASS 0; PECAN TR CL CLASS 0; RAGWEED CL CLASS 0; ROUGH MARSH CL CLASS 0
== END ==
LOC: RAD 09:37
PROVIDERS: ATTEND Nurse Practitioner Family
DX: J45.909 Unspecified asthma, uncomplicated (principal)
CPT/HCPCS: 36415; 71020; 84443; 86003

== ENCOUNTER → 2017-05-31 | Outpatient (CLI) | payer BC ==
[~2017-05-31] MED LIST changes: +BRIO; +PRAM15FO3 TP
== END ==
LOC: LAB 09:41
PROVIDERS: ATTEND Nurse Practitioner Community Health
DX: J45.50 Severe persistent asthma, uncomplicated (principal); J30.89 Other allergic rhinitis; E03.9 Hypothyroidism, unspecified

== ENCOUNTER 2017-06-03 21:31 | Emergency (ER) | payer BC ==
[~2017-06-03] VITALS: Ht 175.3 cm; Wt 97.5 kg
[~2017-06-03 21:31] MED LIST changes: -BRIO; -PRAM15FO3 TP
--- OUTSIDE RECORDS SUMMARY | 2017-06-03 21:39 | XMS REPORT | Continuity of Care Document ---
Author Author [facility] Organization [facility] Address Unknown Phone Unavailable Allergies Active Description Code Type Severity Reaction Onset Reported/Identified Relationship to Patient Clinical Status Yes No Known Drug Allergies [id number] Drug Allergy Unknown N/A 05/04/2011 Medications There is no data. Problems Date Dx Coded Attending Type Code Diagnosis Diagnosed By 10/05/2011 BELKYS PENA DO 578.1 Blood In Stool 10/05/2011 BELKYS PENA DO 599.70 Hematuria Unspecified 10/05/2011 BELKYS PENA DO 780.4 Dizziness And Giddiness 10/05/2011 BELKYS PENA DO 784.0 Headache 10/05/2011 BELKYS PENA DO 790.4 Abnormal Lft (elevated) 10/05/2011 ANNEL PENA DOA K 799.22 Irritability 10/05/2011 ANNEL PENA DOA K V58.69 LONG-TERM (CURRENT) USE OF OTHER MEDICATIONS 10/05/2011 BELKYS PENA DO 578.1 Blood In Stool 10/05/2011 BELKYS PENA DO K 599.70 Hematuria Unspecified 10/05/2011 ANNEL PENA DOA K 780.4 Dizziness And Giddiness 10/05/2011 BELKYS PENA DO K 784.0 Headache 10/05/2011 BELKYS PENA DO K 790.4 Abnormal Lft (elevated) 10/05/2011 ANNEL PENA DOA K 799.22 Irritability 10/05/2011 ANNEL PENA DOA K V58.69 LONG-TERM (CURRENT) USE OF OTHER MEDICATIONS 10/05/2011 578.1 Blood In Stool 10/05/2011 599.70 Hematuria Unspecified 10/05/2011 780.4 Dizziness And Giddiness 10/05/2011 784.0 Headache 10/05/2011 790.4 Abnormal Lft ( elevated) 10/05/2011 799.22 Irritability 10/05/2011 V58.69 LONG-TERM ( CURRENT) USE OF OTHER MEDICATIONS 10/05/2011 578.1 Blood In Stool 10/05/2011 599.70 Hematuria Unspecified 10/05/2011 780.4 Dizziness And Giddiness 10/05/2011 784.0 Headache 10/05/2011 790.4 Abnormal Lft ( elevated) 10/05/2011 799.22 Irritability 10/05/2011 V58.69 LONG-TERM ( CURRENT) USE OF OTHER MEDICATIONS 10/05/2011 578.1 Blood In Stool 10/05/2011 599.70 Hematuria Unspecified 10/05/2011 780.4 Dizziness And Giddiness 10/05/2011 784.0 Headache 10/05/2011 790.4 Abnormal Lft ( elevated) 10/05/2011 799.22 Irritability 10/05/2011 V58.69 LONG-TERM ( CURRENT) USE OF OTHER MEDICATIONS 10/05/2011 578.1 Blood In Stool 10/05/2011 599.70 Hematuria Unspecified 10/05/2011 780.4 Dizziness And Giddiness 10/05/2011 784.0 Headache 10/05/2011 790.4 Abnormal Lft ( elevated) 10/05/2011 799.22 Irritability 10/05/2011 V58.69 LONG-TERM ( CURRENT) USE OF OTHER MEDICATIONS 10/05/2011 MICHELLE MOLINA APRN 578.1 Blood In Stool 10/05/2011 MICHELLE MOLINA APRN 599.70 Hematuria Unspecified 10/05/2011 MICHELLE MOLINA APRN 780.4 Dizziness And Giddiness 10/05/2011 MICHELLE MOLINA APRN 784.0 Headache 10/05/2011 MICHELLE MOLINA APRN 790.4 Abnormal Lft (elevated) 10/05/2011 MICHELLE MOLINA APRN 799.22 Irritability 10/05/2011 MICHELLE MOLINA APRN V58.69 LONG-TERM (CURRENT) USE OF OTHER MEDICATIONS 10/05/2011 BOBBI TELLO APRN 578.1 Blood In Stool 10/05/2011 BOBBI TELLO APRN 599.70 Hematuria Unspecified 10/05/2011 BOBBI TELLO APRN R 780.4 Dizziness And Giddiness 10/05/2011 BOBBI TELLO APRN 784.0 Headache 10/05/2011 OMER LIGHT CLEANER, BOBBI R 790.4 Abnormal Lft (elevated) 10/05/2011 OMER LIGHT CLEANER, BOBBI R 799.22 Irritability 10/05/2011 OMER LIGHT CLEANER, BOBBI R V58.69 LONG-TERM (CURRENT) USE OF OTHER MEDICATIONS 10/05/2011 OMER LIGHT CLEANER, BOBBI R 578.1 Blood In Stool 10/05/2011 OMER LIGHT CLEANER, BOBBI R 599.70 Hematuria Unspecified 10/05/2011 OMER LIGHT CLEANER, BOBBI R 780.4 Dizziness And Giddiness 10/05/2011 OMER LIGHT CLEANER, BOBBI R 784.0 Headache 10/05/2011 OMER LIGHT CLEANER, BOBBI R 790.4 Abnormal Lft (elevated) 10/05/2011 OMER LIGHT CLEANER, BOBBI R 799.22 Irritability 10/05/2011 OMER LIGHT CLEANER, BOBBI R V58.69 LONG-TERM (CURRENT) USE OF OTHER MEDICATIONS 10/05/2011 OMER BOYERN BOBBI R 578.1 Blood In Stool 10/05/2011 OMER EASTMAN BOBBI R 599.70 Hematuria Unspecified 10/05/2011 OMER BOYERN, BOBBI R 780.4 Dizziness And Giddiness 10/05/2011 OMER LIGHT CLEANER, BOBBI R 784.0 Headache 10/05/2011 OMER EASTMAN, BOBBI R 790.4 Abnormal Lft (elevated) 10/05/2011 OMER BOYERN BOBBI R 799.22 Irritability 10/05/2011 OMER LIGHT CLEANER, BOBBI R V58.69 LONG-TERM (CURRENT) USE OF [...] LONG-TERM (CURRENT) USE OF OTHER MEDICATIONS 10/05/2011 PENA DO, BELKYS K 578.1 Blood In Stool 10/05/2011 PENA DO, BELKYS K 599.70 Hematuria Unspecified 10/05/2011 PENA DO, BELKYS K 780.4 Dizziness And Giddiness 10/05/2011 PENA DO, BELKYS K 784.0 Headache 10/05/2011 PENA DO, BELKYS K 790.4 Abnormal Lft (elevated) 10/05/2011 PENA DO, BELKYS K 799.22 Irritability 10/05/2011 PENA DO, BELKYS K V58.69 LONG-TERM (CURRENT) USE OF OTHER MEDICATIONS 10/12/2011 PENA DO, BELKYS K 300.00 AN [...] TELLO APRN 300.00 AN ANXIETY UNSPEC 10/12/2011 KIANNA MENESES MD 300.00 AN ANXIETY UNSPEC 10/12/2011 KIANNA MENESES MD 300.00 AN ANXIETY UNSPEC 10/12/2011 KIANNA MENESES MD 300.00 AN ANXIETY UNSPEC 10/12/2011 KIANNA MENESES MD 300.00 AN ANXIETY UNSPEC 10/12/2011 KIANNA MENESES MD 300.00 AN ANXIETY UNSPEC 10/12/2011 PENA DO, BELKYS K 300.00 AN ANXIETY UNSPEC 10/15/2011 PENA DO, BELKYS K 242.90 HYPERTHYROIDISM 10/15/2011 PENA DO, BELKYS K 242.90 HYPERTHYROIDISM 10/15/2011 242.90 HYPERTHYROIDISM 10/15/2011 242.90 HYPERTHYROIDISM 10/15/2011 242.90 HYPERTHYROIDISM 10/15/2011 242.90 HYPERTHYROIDISM 10/15/2011 MICHELLE MOLINA APRN 242.90 HYPERTHYROIDISM 10/15/2011 OMER EASTMAN, BOBBI R 242.90 HYPERTHYROIDISM 10/15/2011 OMER EASTMAN, BOBBI R 242.90 HYPERTHYROIDISM 10/15/2011 OMER EASTMAN, BOBBI R 242.90 HYPERTHYROIDISM 10/15/2011 KIANNA MENESES MD 242.90 HYPERTHYROIDISM 10/15/2011 KIANNA MENESES MD 242.90 HYPERTHYROIDISM 10/15/2011 KIANNA MENESES MD 242.90 HYPERTHYROIDISM 10/15/2011 KIANNA MENESES MD 242.90 HYPERTHYROIDISM 10/15/2011 KIANNA MENESES MD 242.90 HYPERTHYROIDISM 10/15/2011 BECKY PANCHAL, BELKYS K 242.90 HYPERTHYROIDISM 10/19/2011 PENA DO, BELKYS K 786.50 Chest Pain 10/19/2011 BECKY PANCHAL BELKYS K 786.50 Chest Pain 10/19/2011 786.50 [...] MENESES MD 786.50 Chest Pain 10/19/2011 PENA , BELKYS K 786.50 Chest Pain 10/24/2011 PENA DO BELKYS K 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 10/24/2011 BECKY PANCHAL BELKYS K 311 DEPRESSIVE DISORDER NOT ELSEWHERE CLASSIFIED 10/24/2011 BECKY PANCHAL BELKYS K 401.1 HYPERTENSION, BENIGN ESSENTIAL 10/24/2011 PENA DO BELKYS K 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 10/24/2011 BECKY PANCHAL BELKYS K 311 DEPRESSIVE DISORDER NOT ELSEWHERE CLASSIFIED 10/24/2011 BELKYS PENA DO 401.1 HYPERTENSION, BENIGN ESSENTIAL 10/24/2011 242.00 TOXIC [...] APRN 401.1 HYPERTENSION, BENIGN ESSENTIAL 10/24/2011 OMER LIGHT CLEANER, BOBBI R 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 10/24/2011 OMER EASTMAN BOBBI R 311 DEPRESSIVE DISORDER NOT ELSEWHERE CLASSIFIED 10/24/2011 OMER EASTMAN BOBBI R 401.1 HYPERTENSION, BENIGN ESSENTIAL 10/24/2011 OMER LIGHT CLEANER, BOBBI R 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 10/24/2011 OMER EASTMAN, BOBBI R 311 DEPRESSIVE DISORDER NOT ELSEWHERE CLASSIFIED 10/24/2011 OMER EASTMAN BOBBI R 401.1 HYPERTENSION, BENIGN ESSENTIAL 10/24/2011 OMER LIGHT CLEANER, BOBBI R 242.00 TOXIC 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 [...] MENESES MD 401.1 ESSENTIAL HYPERTENSION BENIGN 10/24/2011 BECKY PANCHAL BELKYS K 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 10/24/2011 BECKY PANCHAL BELKYS K 311 DEPRESSIVE DISORDER NOT ELSEWHERE CLASSIFIED 10/24/2011 BECKY PANCHAL BELKYS K 401.1 HYPERTENSION, BENIGN ESSENTIAL 12/23/2011 Ot [...] 242.00 TOX DIF GOITER NO CRISIS 03/15/2012 BECKY ANNEL PANCHALA K 461.9 SINUSITIS ACUTE 03/15/2012 BECKY PANCHALBELKYS K 466.0 Bronchitis, Acute 03/15/2012 PENA BELKYS PANCHAL K 461.9 SINUSITIS ACUTE 03/15/2012 BECKY PANCHALBELKYS K 466.0 Bronchitis, Acute 03/15/2012 461.9 SINUSITIS ACUTE 03/15/2012 466.0 Bronchitis, Acute 03/15/2012 461.9 SINUSITIS ACUTE 03/15/2012 466.0 Bronchitis, Acute 03/15/2012 461.9 SINUSITIS ACUTE 03/15/2012 466.0 Bronchitis, Acute 03/15/2012 461.9 SINUSITIS ACUTE 03/15/2012 466.0 Bronchitis, Acute 03/15/2012 MICHELLE MOLINA APRN 461.9 SINUSITIS ACUTE 03/15/2012 MICHELLE MOLINA APRN 466.0 Bronchitis, Acute 03/15/2012 OMER EASTMAN, BOBBI R 461.9 SINUSITIS ACUTE 03/15/2012 BOBBI TELLO APRN R 466.0 Bronchitis, Acute 03/15/2012 OMER LIGHT CLEANER, BOBBI R 461.9 SINUSITIS ACUTE 03/15/2012 OMER LIGHT CLEANER, BOBBI R 466.0 Bronchitis, Acute 03/15/2012 OMER LIGHT CLEANER, BOBBI R 461.9 SINUSITIS ACUTE 03/15/2012 OMER LIGHT CLEANER, BOBBI R 466.0 Bronchitis, Acute 03/15/2012 ZAIRA ROBERTS, KIANNA [...] MICHELLE MOLINA APRN 244.9 HYPOTHYROIDISM 05/14/2012 OMER LIGHT CLEANER, BOBBI R 244.9 HYPOTHYROIDISM 05/14/2012 OMER LIGHT CLEANER, BOBBI R 244.9 HYPOTHYROIDISM 05/14/2012 OMER EASTMAN, BOBBI R 244.9 HYPOTHYROIDISM 05/14/2012 KIANNA MENESES [...] 06/13/2012 786.09 DYSPNEA 06/13/2012 786.2 COUGH 06/13/2012 MICHELLE MOLINA APRN 466.0 BRONCHITIS, ACUTE 06/13/2012 MICHELLE MOLINA APRN 569.3 RECTAL BLEEDING 06/13/2012 MICHELLE MOLINA APRN 786.07 WHEEZING 06/13/2012 MICHELLE MOLINA APRN 786.09 DYSPNEA 06/13/2012 MICHELLE MOLINA APRN 786.2 COUGH 06/13/2012 OMER LIGHT CLEANER, BOBBI R 466.0 BRONCHITIS, ACUTE 06/13/2012 OMER LIGHT CLEANER, BOBBI R 569.3 RECTAL BLEEDING 06/13/2012 OMER LIGHT CLEANER, BOBBI R 786.07 WHEEZING 06/13/2012 OMER LIGHT CLEANER, BOBBI R 786.09 DYSPNEA 06/13/2012 OMER LIGHT CLEANER, BOBBI R 786.2 COUGH 06/13/2012 OMER LIGHT CLEANER, BOBBI R 466.0 BRONCHITIS, ACUTE 06/13/2012 OMER LIGHT CLEANER, BOBBI R 569.3 RECTAL BLEEDING 06/13/2012 OMER LIGHT CLEANER, BOBBI R 786.07 WHEEZING 06/13/2012 OMER LIGHT CLEANER, BOBBI R 786.09 DYSPNEA 06/13/2012 OMER LIGHT CLEANER, BOBBI R 786.2 COUGH 06/13/2012 OMER LIGHT CLEANER, BOBBI R 466.0 BRONCHITIS, ACUTE 06/13/2012 OMER LIGHT CLEANER, BOBBI R 569.3 RECTAL BLEEDING 06/13/2012 OMER LIGHT CLEANER, BOBBI R 786.07 WHEEZING 06/13/2012 OMER LIGHT CLEANER, BOBBI R 786.09 DYSPNEA 06/13/2012 OMER LIGHT CLEANER, BOBBI R 786.2 COUGH 06/13/2012 KIANNA MENESES MD 466.0 BRONCHITIS, ACUTE 06/13/2012 ZAIRA ROBERTS, KIANNA Renner 569.3 RECTAL BLEEDING 06/13/2012 ZAIRA ROBERTS, KIANNA Renner 786.07 WHEEZING 06/13/2012 ZAIRA ROBERTS, KIANNA Renner [...] 569.3 RECTAL BLEEDING 06/13/2012 KIANNA MENESES MD D 786.07 WHEEZING 06/13/2012 ZAIRA ROBERTS, KIANNA [...] KIANNA MENESES MD 786.50 CHEST PAIN 11/12/2012 HANY ROBERTS FACC, BRENDA FACP CCDS Ot 244.9 HYPOTHYROIDISM NOS 11/12/2012 HANY ROBERTS FACC, BRENDA FACP CCDS Ot 272.4 HYPERLIPIDEMIA NEC/NOS 11/12/2012 HANY ROBERTS FACC, ALI FACP CCDS Ot 311 DEPRESSIVE DISORDER NEC 11/12/2012 HANY ROBERTS FACC, ALI FACP CCDS Ot 401.9 HYPERTENSION NOS 11/12/2012 HANY ROBERTS FACC, [facility] CCDS Ot 786.50 CHEST PAIN NOS 11/12/[address] [facility], [facility] CCDS Ot V17.49 FAMILY HISTORY OF OTHER CARDIOVASCULAR D 11/12/[address] [facility], [facility] CCDS Ot V58.69 OTH MED,LT,CURRENT USE 06/06/2013 OMER EASTMAN BOBBI R 787.01 NAUSEA [...] MD Ot 786.50 CHEST PAIN NOS 05/10/2017 HANY ROBERTS FACC, ALI OBEDP CCDS Ot 786.50 CHEST PAIN NOS 05/10/2017 [...] MD Ot 786.50 CHEST PAIN NOS 05/10/2017 HANY ROBERTS FACEva, ALI FACP CCDS Ot 786.50 CHEST PAIN NOS 05/11/2017 Ot 242.00 TOX DIF GOITER NO CRISIS 05/11/2017 Ot 242.00 TOX DIF GOITER NO CRISIS 05/11/2017 Ot 242.90 THYROTOX NOS NO CRISIS 05/11/2017 Ot 242.00 TOX DIF GOITER NO CRISIS 05/11/2017 SARAHI SAMUEL MD Ot 397.0 TRICUSPID VALVE DISEASE 05/11/2017 SARAHI SAMUEL MD Ot 424.0 MITRAL VALVE DISORDER 05/11/2017 SARAHI SAMUEL MD Ot 786.50 CHEST PAIN NOS 05/11/2017 HANY ROBERTS FACEva, BRENDA CORRALES CCDS Ot 786.50 CHEST PAIN NOS 05/11/2017 EDWIN PETER MD Ot E05.90 THYROTOXICOSIS, UNSP WITHOUT THYROTOXIC 05/11/2017 EDWIN PETER MD Ot F41.9 ANXIETY DISORDER, UNSPECIFIED 05/11/2017 EDWIN PETER MD Ot J45.901 UNSPECIFIED ASTHMA WITH (ACUTE) EXACERBA 05/11/2017 EDWIN PETER MD Ot R05 COUGH 05/11/2017 EDWIN PETER MD Ot Z20.811 CONTACT WITH AND (SUSPECTED) EXPOSURE TO 05/11/2017 Ot 242.00 TOX DIF GOITER NO CRISIS 05/11/2017 Ot 242.00 TOX DIF GOITER NO CRISIS 05/11/2017 Ot 242.90 THYROTOX NOS NO CRISIS 05/11/2017 Ot 242.00 TOX DIF GOITER NO CRISIS 05/11/2017 SARAHI SAMUEL MD Ot 397.0 TRICUSPID VALVE DISEASE 05/11/2017 SARAHI SAMUEL MD Ot 424.0 MITRAL VALVE DISORDER 05/11/2017 SARAHI SAMUEL MD Ot 786.50 CHEST PAIN NOS 05/11/2017 HANY ROBERTS FACEva, BRENDA CORRALES CCDS Ot 786.50 CHEST PAIN NOS Procedures Code Description [place] [address] ROUTINE VENIPUNCTURE 05/13/2012 82974 THERAPUTIC INJ SQ/IM 05/13/2012 J1040 DEPO MEDROL 80 MG INJ 05/13/2012 12651 TSH 05/14/2012 58572 XRAY CHEST 2 VIEW 06/13/2012 LIZETT KIDD 06/13/2012 94031 ROUTINE VENIPUNCTURE 08/07/2012 80255 XRAY CHEST 2 VIEW 08/07/2012 10667 CMP 08/07/2012 42371 LIPID PANEL 08/07/2012 28970 BNP 08/07/2012 21053 TSH 08/07/2012 51436 CBC 08/07/2012 16290 CRP HS (CARDIO) 08/07/2012 78628 EKG, TRACING (IN-HOUSE) 08/07/2012 27784 PULMONARY FUNCTION TEST (IN- HOUSE) 08/07/2012 CARDI SARAHI SAMUEL 08/07/2012 76773 ECHO 2D 10/23/2012 73799 ROUTINE VENIPUNCTURE 11/15/2012 85142 TSH 11/15/2012 40676 OXIMETRY 11/15/2012 79983 OXIMETRY 11/22/2012 PULMONARY NUDUKWU, STACY 11/22/2012 37684 OXIMETRY 12/13/2012 23310 OXIMETRY 12/17/2012 98588 ROUTINE VENIPUNCTURE 06/06/2013 22836 INFLUENZA A & B (IN-HOUSE) 06/06/2013 26376 UA W/ CULTURE IF INDICATED 06/06/2013 41960 CBC 06/06/2013 58085 CMP 06/06/2013 1738743 GFR CALC (RESULT ONLY) 06/06/2013 68829 LIPASE 06/06/2013 57725 BNP 06/06/2013 44312 OXIMETRY 07/17/2013 Cardiolog Hany Ali 07/17/2013 98612 EKG, TRACING (IN-HOUSE) 09/24/2013 15396 ECHO 2D 10/08/2013 26283 XRAY CHEST 2 VIEW 10/22/2013 64812 OXIMETRY 01/19/2014 68475 ROUTINE VENIPUNCTURE 02/27/2014 82009 TSH 02/27/2014 Results Test Result Range Complete blood count (CBC) with automated white blood cell (WBC) differential - 05/11/17 10:51 Blood leukocytes automated count (number/volume) 8.0 10*3/uL 4.3-11.0 Blood erythrocytes automated count (number/volume) 5.16 10*6/uL 4.35-5.85 Venous blood hemoglobin measurement (mass/volume) 15.4 g/dL 13.3-17.7 Blood hematocrit (volume fraction) 46 % 40-54 Automated erythrocyte mean corpuscular volume 89 [foz_us] 80-99 Automated erythrocyte mean corpuscular hemoglobin (mass per erythrocyte) 30 pg 25-34 Automated erythrocyte mean corpuscular hemoglobin concentration measurement ( mass/volume) 33 g/dL 32-36 Automated erythrocyte distribution width ratio 12.6 % 10.0-14.5 Automated blood platelet count (count/volume) 265 10*3/uL 130-400 Automated blood platelet mean volume measurement 10.1 [foz_us] 7.4-10.4 Automated blood neutrophils/100 leukocytes 40 % 42-75 Automated blood lymphocytes/100 leukocytes 34 % 12-44 Blood monocytes/100 leukocytes 8 % 0-12 Automated blood eosinophils/100 leukocytes 18 % 0-10 Automated blood basophils/100 leukocytes 1 % 0-10 Blood neutrophils automated count (number/volume) 3.2 10*3 1.8-7.8 Blood lymphocytes automated count (number/volume) 2.7 10*3 1.0-4.0 Blood monocytes automated count (number/volume) 0.6 10*3 0.0-1.0 Automated eosinophil count 1.5 10*3/uL 0.0-0.3 Automated blood basophil count (count/volume) 0.1 10*3/uL 0.0-0.1 Blood manual differential performed detection - 05/11/17 10:51 Blood monocytes/100 leukocytes 3 % NRG Manual blood segmented neutrophils/100 leukocytes 39 % NRG Blood band neutrophils/100 leukocytes 0 % NRG Manual blood lymphocytes/100 leukocytes 11 % NRG Manual eosinophils/100 leukocytes in nose 17 % NRG Manual blood basophils/100 leukocytes 1 % NRG Blood lymphocytes variant/100 leukocytes 29 % NRG Blood erythrocyte morphology finding identification [facility] Comprehensive metabolic panel - 05/11/17 10:51 Serum or plasma sodium measurement (moles/volume) 138 mmol/L 135-145 Serum or plasma potassium measurement (moles/volume) 3.6 mmol/L 3.6-5.0 Serum or plasma chloride measurement (moles/volume) 102 mmol/L 98-107 Carbon dioxide 29 mmol/L 21-32 Serum or plasma anion gap determination (moles/volume) 7 mmol/L 5-14 Serum or plasma urea nitrogen measurement (mass/volume) 12 mg/dL 7-18 Serum or plasma creatinine measurement (mass/volume) 0.85 mg/dL 0.60-1.30 Serum or plasma urea nitrogen/creatinine mass ratio 14 NRG Serum or plasma creatinine measurement with calculation of estimated glomerular filtration rate > NRG Serum or plasma glucose measurement (mass/volume) 70 mg/dL 70-105 Serum or plasma calcium measurement (mass/volume) 9.5 mg/dL 8.5-10.1 Serum or plasma total bilirubin measurement (mass/volume) 0.4 mg/dL 0.1-1.0 Serum or plasma alkaline phosphatase measurement (enzymatic activity/volume) 105 U/L 40-136 Serum or plasma aspartate aminotransferase measurement (enzymatic activity/ volume) 17 U/L 5-34 Serum or plasma alanine aminotransferase measurement (enzymatic activity/volume ) 22 U/L 0-55 Serum or plasma protein measurement (mass/volume) 8.3 g/dL 6.4-8.2 Serum or plasma albumin measurement (mass/volume) 4.3 g/dL 3.2-4.5 Serum or plasma C reactive protein measurement (mass/volume) - 05/11/17 10:51 Serum or plasma C reactive protein measurement (mass/volume) 0.37 mg /dL 0.00-0.50 THYROID STIMULATING HORMONE - 05/31/17 10:09 THYROID STIMULATING HORMONE 3.54 u[iU]/mL 0.35-4.94 RAST [place] GENERAL PROFILE - 05/31/17 10:09 [id number] SEE FOOTNOTE NRG Serum Alternaria alternata IgE antibody assay (units/volume) < % <0.35 Dog dander IgE ab RAST class [presence] in serum CLASS 0 NRG Serum dust mite specific IgE antibody assay 7.03 H < 0.35 Serum mold allergen mix 1 (Alternaria alternata, Aspergillus fumigatus, Cladosporium herbarum and Pen 0.47 H <0.35 Serum [place] live oak IgE antibody assay (units/volume) < % <0.35 Serum [place] blue grass IgE antibody RAST class <0.35 <0.35 Serum [place] grass IgE antibody assay (units/volume) < % <0.35 Serum ragweed IgE antibody assay <0.35 <0.35 Serum cat dander IgE antibody assay (units/volume) < % < 0.35 Serum dog dander specific IgE antibody assay < % <0.35 [place] CL CLASS 0 NRG [place] blue grass IgE ab [units/volume] in serum CLASS 0 NRG B[place] grass IgE ab RAST class [presence] in serum CLASS 0 NRG Southern ragweed IgE ab RAST class [presence] in serum CLASS 0 NRG Cat dander IgE ab RAST class [presence] in serum CLASS 0 NRG Micronesian house dust mite IgE ab RAST class [presence] in serum CLASS 3 NRG ALT TEN CL CLASS 0 NRG Cladosporium herbarum IgE ab RAST class [presence] in serum CLASS 1 NRG Serum white elm IgE antibody assay (units/volume) < % < 0.35 [place] TREE CL CLASS 0 NRG Serum pecan or hickory tree IgE antibody assay (units/volume) CLASS 0 % NRG Serum Kirk grass IgE antibody assay (units/volume) CLASS 0 % NRG Serum hancock elder IgE antibody assay (units/volume) CLASS 0 % NRG Encounters ACCT No. Visit Date/Time Discharge Status Pt. Type Provider Facility Loc./Unit Complaint [id number] 05/11/2017 10:14:00 05/11/2017 12:12:00 MICAH Emergency EDWIN PETER MD [facility] ER BREATHING ISSUES, ASTHMA-- [id number] 05/10/2017 17:52:00 05/10/2017 18:30:00 MICAH Emergency EDWIN PETER MD [facility] ER TROUBLE BREATHING; WANTS CHECKED FOR MENINGITIS [id number] 10/08/2013 09:47:00 10/08/2013 23:59:59 CLS Outpatient BRENDA MAC MD, FACC, FACP CCDS [facility] CARD CHEST PAIN [id number] 11/12/2012 10:01:00 11/12/2012 18:08:00 DIS Outpatient BRENDA MAC MD, FACC, FACP CCDS [facility] CATH CP,HTN [id number] 10/28/2012 09:39:00 10/28/2012 23:59:59 CLS Outpatient SARAHI SAMUEL MD [facility] CARD CP [id number] 05/31/2017 10:51:00 Document Registration [id number] 06/18/2012 21:53:00 Document Registration [id number] 05/30/2012 15:52:00 Document Registration [id number] 03/12/2012 10:40:00 Document Registration [id number] 02/27/2012 00:00:00 Document Registration [id number] 02/20/2012 19:38:00 Document Registration [id number] 01/27/2012 23:40:00 Document Registration [id number] 01/19/2012 18:00:00 Document Registration [id number] 01/14/2012 18:51:00 Document Registration [id number] 01/08/2012 19:51:00 Document Registration [id number] 12/23/2011 15:40:00 Document Registration [id number] 12/07/2011 12:34:00 Document Registration [id number] 12/07/2011 12:33:00 Document Registration [id number] 07/13/2014 15:58:00 07/13/2014 23:59:59 CLS Outpatient KIANNA MENESES MD [id number] 02/27/2014 10:40:00 02/27/2014 23:59:59 CLS Outpatient KIANNA MENESES MD [id number] 01/19/2014 13:44:00 01/19/2014 23:59:59 CLS Outpatient KIANNA MENESES MD [id number] 12/16/2013 14:02:00 12/16/2013 23:59:59 CLS Outpatient KIANNA MENESES MD [id number] 12/09/2013 10:27:00 12/09/2013 23:59:59 CLS Outpatient KIANNA MENESES MD [id number] 10/22/2013 08:50:00 10/22/2013 23:59:59 CLS Outpatient BOBBI TELLO APRN [id number] 07/10/2013 10:08:00 07/10/2013 23:59:59 CLS Outpatient BOBBI TELLO APRN [id number] 06/06/2013 14:14:00 06/06/2013 23:59:59 CLS Outpatient BOBBI TELLO APRN [id number] 03/24/2013 09:45:00 03/24/2013 23:59:59 CLS Outpatient MICHELLE MOLINA APRN [id number] 08/07/2012 09:32:00 08/07/2012 23:59:59 CLS Outpatient BELKYS PENA DO [id number] 06/13/2012 08:35:00 06/13/2012 23:59:59 [place] [id number] 05/13/2012 10:13:00 05/13/2012 23:59:59 CLS Outpatient BELKYS PENA DO [id number] 12/13/2012 13:15:00 Document Registration [id number] 11/22/2012 11:11:00 Document Registration [id number] 11/15/2012 10:57:00 Document Registration [id number] 10/16/2012 11:41:00 Document Registration
[2017-06-03] MEDS ORDERED: BRIO (22:24)
[2017-06-03] MEDS ORDERED: PRAM15FO3 TP (23:15)
--- NOTE | 2017-06-03 23:15 | ED GI ---
General Chief Complaint: Rect Problems Stated Complaint: WEAK RECTAL BLEED Nursing Triage Note: c/o rectal bleeding after a bowel movement x 2 today. Sepsis Screen: No Definite Risk Allergies and Home Medications Allergies Coded Allergies: No Known Drug Allergies (Unverified , 05/04/11) Home Medications Levothyroxine Sodium 50 Mcg Tablet, 50 MCG PO DAILY, (Reported) [Brio inhaler] , (Reported) Past Wcchbkf-Pwalwh-Ulrpjz Hx Patient Social History Alcohol Use: Denies Use Recreational Drug Use: No Smoking Status: Never a Smoker 2nd Hand Smoke Exposure: No Recent Foreign Travel: No Contact w/Someone Who Travel: No Recent Infectious Disease Expo: No Recent Hopitalizations: Yes Surgeries History of Surgeries: Yes (HEART CATH 2011) Respiratory History of Respiratory Disorde: Yes (has rescue inhaler is not aware of having asthma) Cardiovascular History of Cardiac Disorders: No Neurological History of Neurological Disord: No Reproductive System Hx Reproductive Disorders: No Genitourinary History of Genitourinary Disor: No Gastrointestinal History of Gastrointestinal Di: No Musculoskeletal History of Musculoskeletal Dis: No Endocrine History of Endocrine Disorders: No Endocrine Disorders: Hyperthyroidism HEENT History of HEENT Disorders: No Cancer History of Cancer: No Psychosocial History of Psychiatric Problem: No Behavioral Health Disorders: Anxiety Blood Transfusions History of Blood Disorders: No Physical Exam Vital Signs VS - Last 72 Hours, by Label 06/03/17 21:50 Temp 98.1 Pulse 70 Resp 16 B/P (MAP) 144/84 (104) Pulse Ox 98 O2 Delivery Room Air Capillary Refill : Less Than 3 Seconds Progress/Results/Core Measures Results/Orders Vital Signs/I&O Vital Sign - Last 12Hours 06/03/17 21:50 Temp 98.1 Pulse 70 Resp 16 B/P (MAP) 144/84 (104) Pulse Ox 98 O2 Delivery Room Air Blood Pressure Mean: 104 Departure Impression Impression: Primary Impression: External hemorrhoids Additional Impression: Rectal bleeding Disposition: 01 HOME, SELF-CARE Condition: Stable Departure-Patient Inst. Decision time for Depature: 23:11 Referrals: MONSE MORROW MD (PCP) Primary Care Physician CHELSY MORALES (Family) Primary Care Physician Patient Instructions: Hemorrhoids (DC) Add. Discharge Instructions: You may use Preparation H [id number]-[id number] to treat hemorrhoids. Avoid constipation by eating plenty of fruits, vegetables, whole grains, and drinking plenty of water. You can also use stool softeners if necessary. Return to care if symptoms worsen such as increasing pain, increasing bleeding, fever, etc. All discharge instructions reviewed with patient and/or family. Voiced understanding. Scripts Pramoxine HCl (Proctofoam) 15 Gm Foam 1 APPLIC TP QID, #1 EA Prov: EARNESTINE LEIVA MD 06/03/17 EARNESTINE LEIVA MD Jun 03, 2017 23:15
[2017-06-03 23:19] VITALS: BP 139/93
[2017-06-04] MEDS ORDERED: HYDROCORTISONE 2.5% CREAM (ANUSOL-HC) 30 GM TOP SCH (09:00)
== END 2017-06-03 23:21 | disposition home or self-care (01) ==
LOC: EDUNIT# 21:31 → ER 21:34
DX: K64.8 Other hemorrhoids (principal); K62.5 Hemorrhage of anus and rectum; E05.90 Thyrotoxicosis, unspecified without thyrotoxic crisis or storm; F41.9 Anxiety disorder, unspecified
CPT/HCPCS: 99282

== ENCOUNTER 2017-06-10 13:00 | Outpatient (CLI) | payer BC ==
[~2017-06-10 13:00] MED LIST changes: +BRIO; +PRAM15FO3 TP
== END 2017-06-10 13:39 | disposition home or self-care (01) ==
LOC: SLEEP 13:00
PROVIDERS: ATTEND Nurse Practitioner Family
DX: G47.33 Obstructive sleep apnea (adult) (pediatric) (principal)

== ENCOUNTER → 2017-07-02 | Outpatient (CLI) | payer BC ==
[~2017-07-02] MED LIST changes: +RT-ALBUTEROL SULF 2.5 MG/3 ML PRE-MIX VIAL INH ONE; +RT-ALBUTEROL SULF 2.5 MG/3 ML PRE-MIX VIAL ONE
== END ==
LOC: RT 09:04
PROVIDERS: ATTEND Nurse Practitioner Family
DX: J45.909 Unspecified asthma, uncomplicated (principal); J42 Unspecified chronic bronchitis
CPT/HCPCS: 94060; 94726; 94729

== ENCOUNTER 2017-07-27 13:24 | Emergency (ER) | payer BC ==
[~2017-07-27] VITALS: Ht 172.7 cm; Wt 90.7 kg
[~2017-07-27 13:24] MED LIST changes: -RT-ALBUTEROL SULF 2.5 MG/3 ML PRE-MIX VIAL INH ONE; -RT-ALBUTEROL SULF 2.5 MG/3 ML PRE-MIX VIAL ONE
--- NOTE | 2017-07-27 14:08 | ED Cough/URI ---
General Chief Complaint: Respiratory Problems Stated Complaint: ASTHMA/SOB/COUGH/N/V/FEVER Source: patient Exam Limitations: no limitations History of Present Illness Date Seen by Provider: Jul 27, 2017 Time Seen by Provider: 14:07 Initial Comments To ER with reports of a four-day history of asthma exacerbation cough and shortness of breath. Denies fevers or chills. On the first day of this illness he was seen at the [facility] and diagnosed with bronchitis. He was given a prescription for azithromycin but states that he did not fill it. He has a nebulizer at home but does not have the tubing to use it. Timing/Duration: constant Severity/Quality: dry cough Associated Symptoms: shortness of breath, wheezing Allergies and Home Medications Allergies Coded Allergies: No Known Drug Allergies (Unverified , 05/04/11) Home Medications Albuterol Sulfate 2.5 Mg/3 Ml Vial.neb, 2.5 MG IH Q4H PRN for WHEEZING, #25 Prescribed by: KEIRA PENA on 07/27/17 1448 Levothyroxine Sodium 50 Mcg Tablet, 50 MCG PO DAILY, (Reported) Pramoxine HCl 15 Gm Foam, 1 APPLIC TP QID, #1 Prescribed by: EARNESTINE WILKERSON on 06/03/17 2315 Prednisone 20 Mg Tab, 40 MG PO DAILY, #8 Prescribed by: KEIRA PENA on 07/27/17 1448 [Brio inhaler] , (Reported) Constitutional: see HPI EENTM: see HPI Respiratory: see HPI, cough, short of breath Cardiovascular: no symptoms reported Genitourinary: no symptoms reported Musculoskeletal: no symptoms reported Skin: no symptoms reported Psychiatric/Neurological: No Symptoms Reported Past Qfkzrkk-Olvzkz-Nccjhw Hx Patient Social History 2nd Hand Smoke Exposure: No Recent Foreign Travel: No Contact w/Someone Who Travel: No Recent Hopitalizations: Yes Surgeries History of Surgeries: Yes (HEART CATH 2011) Respiratory History of Respiratory Disorde: Yes (has rescue inhaler is not aware of having asthma) Cardiovascular History of Cardiac Disorders: No Neurological History of Neurological Disord: No Reproductive System Hx Reproductive Disorders: No Genitourinary History of Genitourinary Disor: No Gastrointestinal History of Gastrointestinal Di: No Musculoskeletal History of Musculoskeletal Dis: No Endocrine History of Endocrine Disorders: No Endocrine Disorders: Hyperthyroidism HEENT History of HEENT Disorders: No Cancer History of Cancer: No Psychosocial History of Psychiatric Problem: No Behavioral Health Disorders: Anxiety Blood Transfusions History of Blood Disorders: No Physical Exam Vital Signs Vital Signs - First Documented 07/27/17 14:20 Pulse Ox 93 O2 Delivery Room Air Capillary Refill : General Appearance: WD/WN, no apparent distress, other (Initial oxygen saturation 94% on room air. Lungs very diminished and wheezy.) Eyes: Bilateral Eye Normal Inspection, Bilateral Eye PERRL, Bilateral Eye EOMI HEENT: PERRL/EOMI, normal ENT inspection Neck: non-tender, full range of motion Respiratory: no respiratory distress, no accessory muscle use, wheezing Cardiovascular: regular rate, rhythm, no murmur Gastrointestinal: normal bowel sounds, non tender Neurologic/Psychiatric: alert, normal mood/affect, oriented x 3 Skin: normal color, warm/dry Progress/Results/Core Measures Suspected Sepsis SIRS Temperature: Pulse: Respiratory Rate: Laboratory Tests 07/27/17 14:05: White Blood Count 8.5 Blood Pressure / Mean: Laboratory Tests 07/27/17 14:05: Creatinine 0.90, Platelet Count 238, Total Bilirubin 1.1H Results/Orders Lab Results Laboratory Tests Test 07/27/17 14:05 Range/Units White Blood Count 8.5 4.3-11.0 10^3/uL Red Blood Count 4.90 4.35-5.85 10^6/uL Hemoglobin 14.7 13.3-17.7 G/DL Hematocrit 43 40-54 % Mean Corpuscular Volume 88 80-99 FL Mean Corpuscular Hemoglobin 30 25-34 PG Mean Corpuscular Hemoglobin Concent 34 32-36 G/DL Red Cell Distribution Width 12.6 10.0-14.5 % Platelet Count 238 130-400 10^3/uL Mean Platelet Volume 10.2 7.4-10.4 FL Neutrophils (%) (Auto) 68 42-75 % Lymphocytes (%) (Auto) 21 12-44 % Monocytes (%) (Auto) 8 0-12 % Eosinophils (%) (Auto) 3 0-10 % Basophils (%) (Auto) 1 0-10 % Neutrophils # (Auto) 5.8 1.8-7.8 X 10^3 Lymphocytes # (Auto) 1.8 1.0-4.0 X 10^3 Monocytes # (Auto) 0.7 0.0-1.0 X 10^3 Eosinophils # (Auto) 0.2 0.0-0.3 10^3/uL Basophils # (Auto) 0.1 0.0-0.1 10^3/uL Sodium Level 136 135-145 MMOL/L Potassium Level 3.4 L 3.6-5.0 MMOL/L Chloride Level 100 98-107 MMOL/L Carbon Dioxide Level 24 21-32 MMOL/L Anion Gap 12 5-14 MMOL/L Blood Urea Nitrogen 8 7-18 MG/DL Creatinine 0.90 0.60-1.30 MG/DL Estimat Glomerular Filtration Rate > 60 BUN/Creatinine Ratio 9 Glucose Level 89 70-105 MG/DL Calcium Level 9.6 8.5-10.1 MG/DL Total Bilirubin 1.1 H 0.1-1.0 MG/DL Aspartate Amino Transf (AST/SGOT) 29 5-34 U/L Alanine Aminotransferase (ALT/SGPT) 52 0-55 U/L Alkaline Phosphatase 100 40-136 U/L Total Protein 8.1 6.4-8.2 GM/DL Albumin 4.3 3.2-4.5 GM/DL My Orders Orders - KEIRA PENA [employer]CRETE CRUSHER LOADER OPERATOR Cbc With Automated Diff (07/27/17 14:05) Comprehensive Metabolic Panel (07/27/17 14:05) Saline Lock/Iv-Start (07/27/17 14:05) Albuterol/Ipra Inhalation Soln (Duoneb I (07/27/17 14:15) Methylprednisolone Sod Succ (Solu-Medrol (07/27/17 14:15) Svn Sm Volume Nebulizer Rt-Rfs (07/27/17 14:05) Albuterol Pre-Mix Nebs (Rt) (Proventil (07/27/17 21:00) Svn Sm Volume Nebulizer Rt-Rfs (07/27/17 14:05) Ondansetron Injection (Zofran Injectio (07/27/17 14:15) Ns Iv 1000 Ml (Sodium Chloride 0.9%) (07/27/17 14:15) Chest 1 View, Ap/Pa Only (07/27/17 14:24) Potassium Chloride (Tablet) (Klor Con Ta (07/27/17 14:45) Medications Given in ED Current Medications Medications Dose Ordered Sig/Anatoly Route Start Time Stop Time Status Last Admin Dose Admin Albuterol/ Ipratropium 3 ml ONCE ONCE INH 07/27/17 14:15 07/27/17 14:16 DC 07/27/17 14:17 3 ML Methylprednisolone Sodium Succinate 125 mg ONCE ONCE IVP 07/27/17 14:15 07/27/17 14:16 DC 07/27/17 14:26 125 MG Ondansetron HCl 8 mg ONCE ONCE IVP 07/27/17 14:15 07/27/17 14:16 DC 07/27/17 14:26 8 MG Vital Signs/I&O Vital Sign - Last 12Hours 07/27/17 14:20 Pulse Ox 93 O2 Delivery Room Air Capillary Refill : Departure Communication (Admissions) Progress Notes I will not test him for influenza because he been without fevers, this is day 4 of the illness and he is too late for Tamiflu and it will not change my management plan Impression Impression: Primary Impression: Asthma exacerbation Disposition: 01 HOME, SELF-CARE Condition: Improved Departure-Patient Inst. Decision time for Depature: 14:47 Referrals: MONSE MORROW MD (PCP) Primary Care Physician CHELSY MORALES (Family) Primary Care Physician Patient Instructions: Asthma, Adult (DC) Add. Discharge Instructions: 1. Return to the emergency room for any worsening symptoms or other concerns 2. Use your nebulizer every 4 hours for the next 2-3 days. Steroids as directed starting today. Return to ER for any worsening. All discharge instructions reviewed with patient and/or family. Voiced understanding. Scripts Albuterol Sulfate (Albuterol Sulfate) 2.5 Mg/3 Ml Vial.neb 2.5 MG IH Q4H Y for WHEEZING, #25 EA Prov: KEIRA PENA [employer]CR[employer]E [employer]HER LOADER OPERATOR 07/27/17 Prednisone (Prednisone) 20 Mg Tab 40 MG PO DAILY, #8 TAB Prov: KEIRA PENA APRN 07/27/17 Work/School Note: Work Release Form Date Seen in the Emergency Department: Jul 27, 2017 Return to Work: Jul 29, 2017 KEIRA PENA APRN Jul 27, 2017 14:08
[2017-07-27 14:11] LABS: BASOPHILS # (AUTO) 0.1 10^3/uL (0.0-0.1); BASOPHILS % (AUTO) 1 % (0-10); EOSINOPHILS # (AUTO) 0.2 10^3/uL (0.0-0.3); EOSINOPHILS % (AUTO) 3 % (0-10); HEMATOCRIT 43 % (40-54); HEMOGLOBIN 14.7 G/DL (13.3-17.7); LYMPHOCYTES # (AUTO) 1.8 X 10^3 (1.0-4.0); LYMPHOCYTES % (AUTO) 21 % (12-44); MEAN CORPUSCULAR HEMOGLOBIN 30 PG (25-34); MEAN CORPUSCULAR HGB CONC 34 G/DL (32-36); MEAN CORPUSCULAR VOLUME 88 FL (80-99); MEAN PLATELET VOLUME 10.2 FL (7.4-10.4); MONOCYTES # (AUTO) 0.7 X 10^3 (0.0-1.0); MONOCYTES % (AUTO) 8 % (0-12); NEUTROPHILS # (AUTO) 5.8 X 10^3 (1.8-7.8); NEUTROPHILS % (AUTO) 68 % (42-75); PLATELET COUNT 238 10^3/uL (130-400); RED CELL DISTRIBUTION WIDTH 12.6 % (10.0-14.5); WHITE BLOOD COUNT 8.5 10^3/uL (4.3-11.0)
[2017-07-27] MEDS ORDERED: RT-ALBUTEROL/IPRATROPIUM 3 ML (DUONEB) VIAL INH ONE (14:15)
[2017-07-27] MEDS ORDERED: ONDANSETRON 4 MG/2 ML (SDV) Z0FRAN IVP ONE (14:15)
[2017-07-27] MEDS ORDERED: NS IV 1000 ML 1,000 ML IV SCH (14:15)
[2017-07-27] MEDS ORDERED: methylPREDNISolone 125 MG (Solu-MEDROL) VIAL IVP ONE (14:15)
[2017-07-27 14:28] LABS: ALANINE AMINOTRANSFERASE 52 U/L (0-55); ALBUMIN 4.3 GM/DL (3.2-4.5); ALKALINE PHOSPHATASE 100 U/L (40-136); BILIRUBIN,TOTAL 1.1 MG/DL (0.1-1.0); BUN/CREATININE RATIO 9; CALCIUM 9.6 MG/DL (8.5-10.1); CARBON DIOXIDE 24 MMOL/L (21-32); CHLORIDE 100 MMOL/L (98-107); GFR ESTIMATED > 60; GLUCOSE 89 MG/DL (70-105); POTASSIUM 3.4 MMOL/L (3.6-5.0); SODIUM 136 MMOL/L (135-145); TOTAL PROTEIN 8.1 GM/DL (6.4-8.2)
--- NOTE | 2017-07-27 14:41 | Diagnostic Imaging Report ---
INDICATION: Lower respiratory infection. Portable chest at 02:34 p.m. FINDINGS: Heart size and pulmonary vascularity are normal. Lungs are clear. There are no effusions or pneumothoraces. IMPRESSION: No acute abnormalities in the chest. Dictated by: Dictated on workstation # [id number]
[2017-07-27] MEDS ORDERED: KCL 10 MEQ TAB (MICRO K) PO ONE (14:45)
[2017-07-27] MEDS ORDERED: ALBU2.5V4 IH (14:48)
[2017-07-27] MEDS ORDERED: PRD20T PO (14:48)
[2017-07-27 15:27] VITALS: BP 130/74
--- OUTSIDE RECORDS SUMMARY | 2017-07-27 17:11 | XMS REPORT | Continuity of Care Document ---
Author Author [facility] Organization [facility] Address Unknown Phone Unavailable Allergies Active Description Code Type Severity Reaction Onset Reported/Identified Relationship to Patient Clinical Status Yes No Known Drug Allergies [id number] Drug Allergy Unknown N/A 05/04/2011 Medications There [...] BOBBI TELLO APRN 784.0 Headache 10/05/2011 [employer] EQUIPMENT REPAIRER, BOBBI R 790.4 Abnormal Lft (elevated) 10/05/2011 [employer]QUIPMENT REPAIRER, BOBBI R 799.22 Irritability 10/05/2011 [employer] EQUIPMENT REPAIRER, BOBBI R V58.69 LONG-TERM (CURRENT) USE OF OTHER MEDICATIONS 10/05/2011 [employer] EQUIPMENT REPAIRER, BOBBI R 578.1 Blood In Stool 10/05/2011 [employer] EQUIPMENT REPAIRER, BOBBI R 599.70 Hematuria Unspecified 10/05/2011 [employer] EQUIPMENT REPAIRER, BOBBI R 780.4 Dizziness And Giddiness 10/05/2011 [employer] EQUIPMENT REPAIRER, BOBBI R 784.0 Headache 10/05/2011 OM[employer] EQUIPMENT REPAIRER, BOBBI R 790.4 Abnormal Lft (elevated) 10/05/2011 OM[employer] EQUIPMENT REPAIRER, BOBBI R 799.22 Irritability 10/05/2011 OM[employer] EQUIPMENT REPAIRER, BOBBI R V58.69 LONG-TERM (CURRENT) USE OF OTHER MEDICATIONS 10/05/2011 OMER BOYERN BOBBI R 578.1 Blood In Stool 10/05/2011 OMER EASTMAN BOBBI R 599.70 Hematuria Unspecified 10/05/2011 OMER BOYERN, BOBBI R 780.4 Dizziness And Giddiness 10/05/2011 OM[employer] EQUIPMENT REPAIRER, BOBBI R 784.0 Headache 10/05/2011 OMER EASTMAN, BOBBI R 790.4 Abnormal Lft (elevated) 10/05/2011 OMER BOYERN BOBBI R 799.22 Irritability 10/05/2011 OM[employer] EQUIPMENT REPAIRER, BOBBI R V58.69 LONG-TERM (CURRENT) USE OF [...] APRN 401.1 HYPERTENSION, BENIGN ESSENTIAL 10/24/2011 [employer] EQUIPMENT REPAIRER, BOBBI R 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 10/24/2011 OMER EASTMAN BOBBI R 311 DEPRESSIVE DISORDER NOT ELSEWHERE CLASSIFIED 10/24/2011 OMER EASTMAN BOBBI R 401.1 HYPERTENSION, BENIGN ESSENTIAL 10/24/2011 OM[employer] EQUIPMENT REPAIRER, BOBBI R 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 10/24/2011 OMER EASTMAN, BOBBI R 311 DEPRESSIVE DISORDER NOT ELSEWHERE CLASSIFIED 10/24/2011 OMER EASTMAN BOBBI R 401.1 HYPERTENSION, BENIGN ESSENTIAL 10/24/2011 OM[employer] EQUIPMENT REPAIRER, BOBBI R 242.00 TOXIC 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 [...] DEPRESSIVE DISORDER NOT ELSEWHERE CLASSIFIED 10/24/2011 BECKY PANCAHL BELKYS K 401.1 HYPERTENSION, BENIGN ESSENTIAL 12/23/2011 [...] APRN R 466.0 Bronchitis, Acute 03/15/2012 [employer] EQUIPMENT REPAIRER, BOBBI R 461.9 SINUSITIS ACUTE 03/15/2012 OM[employer] EQUIPMENT REPAIRER, BOBBI R 466.0 Bronchitis, Acute 03/15/2012 OM[employer] EQUIPMENT REPAIRER, BOBBI R 461.9 SINUSITIS ACUTE 03/15/2012 OM[employer] EQUIPMENT REPAIRER, BOBBI R 466.0 Bronchitis, Acute 03/15/2012 ZAIRA [...] MICHELLE MOLINA APRN 244.9 HYPOTHYROIDISM 05/14/2012 [employer] EQUIPMENT REPAIRER, BOBBI R 244.9 HYPOTHYROIDISM 05/14/2012 OM[employer] EQUIPMENT REPAIRER, BOBBI R 244.9 HYPOTHYROIDISM 05/14/2012 OMER EASTMAN, [...] MICHELLE MOLINA APRN 786.2 COUGH 06/13/2012 OM[employer] EQUIPMENT REPAIRER, BOBBI R 466.0 BRONCHITIS, ACUTE 06/13/2012 OM[employer] EQUIPMENT REPAIRER, BOBBI R 569.3 RECTAL BLEEDING 06/13/2012 OM[employer] EQUIPMENT REPAIRER, BOBBI R 786.07 WHEEZING 06/13/2012 OM[employer] EQUIPMENT REPAIRER, BOBBI R 786.09 DYSPNEA 06/13/2012 [employer] EQUIPMENT REPAIRER, BOBBI R 786.2 COUGH 06/13/2012 OM[employer] EQUIPMENT REPAIRER, BOBBI R 466.0 BRONCHITIS, ACUTE 06/13/2012 OMER [employer] EQUIPMENT REPAIRER, BOBBI R 569.3 RECTAL BLEEDING 06/13/2012 OM[employer] EQUIPMENT REPAIRER, BOBBI R 786.07 WHEEZING 06/13/2012 OM[employer] EQUIPMENT REPAIRER, BOBBI R 786.09 DYSPNEA 06/13/2012 OM[employer] EQUIPMENT REPAIRER, BOBBI R 786.2 COUGH 06/13/2012 OM[employer] EQUIPMENT REPAIRER, BOBBI R 466.0 BRONCHITIS, ACUTE 06/13/2012 OM[employer] EQUIPMENT REPAIRER, BOBBI R 569.3 RECTAL BLEEDING 06/13/2012 OMER [employer] EQUIPMENT REPAIRER, BOBBI R 786.07 WHEEZING 06/13/2012 OMER [employer] EQUIPMENT REPAIRER, BOBBI R 786.09 DYSPNEA 06/13/2012 [employer] EQUIPMENT REPAIRER, BOBBI R 786.2 COUGH 06/13/2012 KIANNA MENESES [...] 272.4 HYPERLIPIDEMIA NEC/NOS 11/12/2012 BUBBA ROBERTS FACC, ALI FACP CCDS Ot 311 DEPRESSIVE DISORDER NEC 11/12/2012 BUBBA ROBERTS FACC, ALI FACP CCDS Ot 401.9 HYPERTENSION NOS 11/12/2012 BUBBA ROBERTS FACC, [facility] CCDS Ot 786.50 CHEST PAIN NOS 11/12/2012 BUBBA ROBERTS [facility], [facility] CCDS Ot V17.49 FAMILY HISTORY OF OTHER CARDIOVASCULAR D 11/12/2012 BUBBA ROBRETS [facility], [facility] CCDS Ot V58.69 OTH MED,LT,CURRENT USE 06/06/2013 [...] 786.50 CHEST PAIN NOS 05/10/2017 BUBBA ROBERTS FACC, ALI FACP CCDS Ot 786.50 CHEST PAIN NOS 05/10/2017 EDWIN PETER MD Ot R06.00 DYSPNEA, UNSPECIFIED 05/10/2017 Ot 242.00 TOX DIF GOITER NO CRISIS 05/10/2017 Ot 242.00 TOX DIF GOITER NO CRISIS 05/10/2017 Ot 242.90 THYROTOX NOS NO CRISIS 05/10/2017 Ot 242.00 TOX DIF GOITER NO CRISIS 05/10/2017 SARAHI SAMUEL MD Ot 397.0 TRICUSPID VALVE DISEASE 05/10/2017 SARAHI SAMUEL MD Ot 424.0 MITRAL VALVE DISORDER 05/10/2017 SARAHI SAMUEL MD Ot 786.50 CHEST PAIN NOS 05/10/2017 BUBBA ROBERTS FACC, ALI FACP CCDS Ot [...] MD Ot 786.50 CHEST PAIN NOS 05/11/2017 BUBBA ROBERTS FACC, ALI FACP CCDS Ot [...] MD Ot 786.50 CHEST PAIN NOS 05/11/2017 BUBBA ROBERTS FACC, ALI FACP CCDS Ot 786.50 CHEST PAIN NOS 06/03/2017 EARNESTINE LEIVA MD Ot E05.90 THYROTOXICOSIS, UNSP WITHOUT THYROTOXIC 06/03/2017 EARNESTINE LEIVA MD Ot F41.9 ANXIETY DISORDER, UNSPECIFIED 06/03/2017 EARNESTINE LEIVA MD Ot K62.5 HEMORRHAGE OF ANUS AND RECTUM 06/03/2017 EARNESTINE LEIVA MD Ot K64.8 OTHER HEMORRHOIDS 06/10/2017 CHELY PETERS APRN Ot G47.33 OBSTRUCTIVE SLEEP APNEA (ADULT) (PEDIATR 06/16/2017 CHELY PETERS APRN Ot G47.33 OBSTRUCTIVE SLEEP APNEA (ADULT) (PEDIATR 06/21/2017 CHELY PETERS [employer] E[employer]IPMENT REPAIRER Ot J45.909 UNSPECIFIED ASTHMA, UNCOMPLICATED 06/25/2017 Ot 242.00 TOX DIF GOITER NO CRISIS 06/25/2017 Ot 242.90 THYROTOX NOS NO CRISIS 06/25/2017 Ot 242.00 TOX DIF GOITER NO CRISIS 06/25/2017 JIMMIE ROBERTS, SARAHI Ot 397.0 TRICUSPID VALVE DISEASE 06/25/2017 JIMMIE ROBERTS, SARAHI Ot 424.0 MITRAL VALVE DISORDER 06/25/2017 JIMMIE ROBERTS, SARAHI Ot 786.50 CHEST PAIN NOS 06/25/2017 BUBBA ROBERTS FAC, EMILY CORRALES CCDS Ot 786.50 CHEST PAIN NOS 06/25/2017 CHELY PETERS [employer] EQUIPMENT REPAIRER Ot J45.909 UNSPECIFIED ASTHMA, UNCOMPLICATED 06/25/2017 CHELSY MORALES CUPOLA CHARGER INSULATION Ot E03.9 HYPOTHYROIDISM, UNSPECIFIED 06/25/2017 CHELSY MORALES CUPOLA CHARGER INSULATION Ot J30.89 OTHER ALLERGIC RHINITIS 06/25/2017 CHELSY MORALES CUPOLA CHARGER INSULATION Ot J45.50 SEVERE PERSISTENT ASTHMA, UNCOMPLICATED 07/03/2017 CHELY PETERS [employer]IPMENT REPAIRER Ot J42 UNSPECIFIED CHRONIC BRONCHITIS 07/03/2017 CHELY PETERS [employer]IPMENT REPAIRER Ot J45.909 UNSPECIFIED ASTHMA, UNCOMPLICATED 07/08/2017 CHELY PETERS [employer] EQUIPMENT REPAIRER Ot J42 UNSPECIFIED CHRONIC BRONCHITIS 07/08/2017 CHELY PETERS [employer] E[employer]IPMENT REPAIRER Ot J45.909 UNSPECIFIED ASTHMA, UNCOMPLICATED 07/19/2017 CHELY PETERS [employer] EQUIPMENT REPAIRER Ot J42 UNSPECIFIED CHRONIC BRONCHITIS 07/19/2017 CHELY PETERS [employer] E[employer]IP[employer] REPAIRER Ot J45.909 UNSPECIFIED ASTHMA, UNCOMPLICATED Procedures Code Description [place] [address] ROUTINE VENIPUNCTURE 05/13/2012 52457 THERAPUTIC INJ SQ/IM 05/13/2012 J1040 DEPO MEDROL 80 MG INJ 05/13/2012 99354 TSH 05/14/2012 26135 XRAY CHEST 2 VIEW 06/13/2012 LIZETT KIDD 06/13/2012 51953 ROUTINE VENIPUNCTURE 08/07/2012 70332 XRAY CHEST 2 VIEW 08/07/2012 25212 CMP 08/07/2012 65523 LIPID PANEL 08/07/2012 40557 BNP 08/07/2012 62011 TSH 08/07/2012 79378 CBC 08/07/2012 27758 CRP HS (CARDIO) 08/07/2012 59400 EKG, TRACING (IN-HOUSE) 08/07/2012 41434 PULMONARY FUNCTION TEST (IN- HOUSE) 08/07/2012 IVON STEVEJUMATriniSARAHI 08/07/2012 21526 ECHO 2D 10/23/2012 23704 ROUTINE VENIPUNCTURE 11/15/2012 39603 TSH 11/15/2012 10476 OXIMETRY 11/15/2012 95977 OXIMETRY 11/22/2012 PULMONARY VAZQUEZ STACY 11/22/2012 84307 OXIMETRY 12/13/2012 41871 OXIMETRY 12/17/2012 52324 ROUTINE VENIPUNCTURE 06/06/2013 90450 INFLUENZA A & B (IN-HOUSE) 06/06/2013 81455 UA W/ CULTURE IF INDICATED 06/06/2013 09068 CBC 06/06/2013 01340 CMP 06/06/2013 5548447 GFR CALC (RESULT ONLY) 06/06/2013 93180 LIPASE 06/06/2013 76130 BNP 06/06/2013 43803 OXIMETRY 07/17/2013 Cardiolog Emily Leach 07/17/2013 95306 EKG, TRACING (IN-HOUSE) 09/24/2013 25838 ECHO 2D 10/08/2013 34794 XRAY CHEST 2 VIEW 10/22/2013 78497 OXIMETRY 01/19/2014 82366 ROUTINE VENIPUNCTURE 02/27/2014 94406 TSH 02/27/2014 Results Test Result Range Complete [...] 05/11/17 10:51 Blood monocytes/100 leukocytes 3 % NR Manual blood segmented neutrophils/100 leukocytes 39 % NRG Blood band neutrophils/100 leukocytes 0 % NRG Manual blood lymphocytes/100 leukocytes 11 % NRG Manual eosinophils/100 leukocytes in nose 17 % NRG Manual blood basophils/100 leukocytes 1 % NRG Blood lymphocytes variant/100 leukocytes 29 % NR Blood erythrocyte morphology finding identification [facility] Comprehensive metabolic panel - 05/11/17 [...] THYROID STIMULATING HORMONE 3.54 u[iU]/mL 0.35-4.94 [facility] - 05/31/17 10:09 [id number] SEE FOOTNOTE NRG Serum Alternaria alternata IgE [...] class [presence] in serum CLASS 0 NRG Citizen Of [place] house dust mite IgE ab RAST class [...] Status Pt. Type Provider Facility Loc./Unit Complaint [id number] 07/02/2017 09:04:00 07/02/2017 23:59:59 CLS Outpatient CHELY PETERS APRN [facility] RT ASTHMA [id number] 06/19/2017 14:01:00 06/19/2017 23:59:59 CLS Preadmit CHELY PETERS APRN [facility] SLEEP G47.9 SLEEP DISORDER [id number] 06/10/2017 13:00:00 06/10/2017 13:39:00 DIS Outpatient CHELY PETERS APRN [facility] SLEEP G47.10 [id number] 06/03/2017 21:34:00 06/03/2017 23:21:00 DIS Emergency CALI ROBERTS, EARNESTINE José [facility] ER WEAK RECTAL BLEED [id number] 05/31/2017 09:41:00 05/31/2017 23:59:59 CLS Outpatient HCELSY MORALES [facility] LAB E03.9 J45.50J30.89 [id number] 05/31/2017 09:37:00 05/31/2017 23:59:59 CLS Outpatient CHELY PETERS APRN [facility] RAD J45.909 R06.00 [id number] 05/11/2017 10:14:00 05/11/2017 12:12:00 DIS Emergency EDWIN PETER MD [facility] ER BREATHING ISSUES, ASTHMA-- [id number] 05/10/2017 17:52:00 05/10/2017 18:30:00 DIS Emergency EDWIN PETER MD [facility] ER TROUBLE BREATHING; WANTS CHECKED FOR MENINGITIS [id number] 10/08/2013 09:47:00 10/08/2013 23:59:59 CLS Outpatient BUBBA ROBERTS FACC, ALI FACP CCDS [facility] CARD CHEST PAIN [id number] 11/12/2012 10:01:00 11/12/2012 18:08:00 DIS Outpatient BUBBA ROBERTS FACC, ALI FACP CCDS [facility] CATH CP,HTN [id number] 10/28/2012 09:39:00 10/28/2012 23:59:59 CLS Outpatient SARAHI SAMUEL MD [facility] CARD CP [id number] 06/18/2012 21:53:00 Document Registration [id number] 05/30/2012 15:52:00 Document Registration [id number] 03/12/2012 10:40:00 Document Registration [id number] 02/27/2012 00:00:00 Document Registration [id number] 02/20/2012 19:38:00 Document Registration [id number] 01/27/2012 23:40:00 Document Registration [id number] 01/19/2012 18:00:00 Document Registration [id number] 01/14/2012 18:51:00 Document Registration [id number] 01/08/2012 19:51:00 Document Registration [id number] 12/23/2011 15:40:00 Document Registration [id number] 12/07/2011 12:34:00 Document Registration [id number] 12/07/2011 12:33:00 Document Registration [id number] 07/13/2014 15:58:00 07/13/2014 23:59:59 CLS Outpatient KIANNA MENESES MD [id number] 02/27/2014 10:40:00 02/27/2014 23:59:59 CLS Outpatient KIANNA MENESES MD [id number] 01/19/2014 13:44:00 01/19/2014 23:59:59 CLS Outpatient KIANNA MENESES MD [id number] 12/16/2013 14:02:00 12/16/2013 23:59:59 CLS Outpatient KIANNA MENESES MD [id number] 12/09/2013 10:27:00 12/09/2013 23:59:59 CLS Outpatient KIANNA MENESES MD [id number] 10/22/2013 08:50:00 10/22/2013 23:59:59 CLS Outpatient BOBBI TELLO APRN [id number] 07/10/2013 10:08:00 07/10/2013 23:59:59 CLS Outpatient BOBBI TELLO APRN [id number] 06/06/2013 14:14:00 06/06/2013 23:59:59 CLS Outpatient BOBBI TELLO APRN [id number] 03/24/2013 09:45:00 03/24/2013 23:59:59 CLS Outpatient MICHELLE MOLINA APRN [id number] 08/07/2012 09:32:00 08/07/2012 23:59:59 CLS Outpatient BELKYS PENA DO [id number] 06/13/2012 08:35:00 06/13/2012 23:59:59 [place] [id number] 05/13/2012 10:13:00 05/13/2012 23:59:59 CLS Outpatient BELKYS PENA DO [id number] 12/13/2012 13:15:00 Document Registration [id number] 11/22/2012 11:11:00 Document Registration [id number] 11/15/2012 10:57:00 Document Registration [id number] 10/16/2012 11:41:00 Document Registration
[2017-07-27] MEDS ORDERED: RT-ALBUTEROL SULF 2.5 MG/3 ML PRE-MIX VIAL INH SCH (21:00)
== END 2017-07-27 15:27 | disposition home or self-care (01) ==
LOC: EDUNIT# 13:24 → ER 13:26
DX: J45.901 Unspecified asthma with (acute) exacerbation (principal); E05.90 Thyrotoxicosis, unspecified without thyrotoxic crisis or storm; F41.9 Anxiety disorder, unspecified; Z79.52 Long term (current) use of systemic steroids
CPT/HCPCS: 36415; 71045; 80053; 85025; 94640; 94644

== ENCOUNTER 2017-11-17 16:09 | Emergency (ER) | payer BC ==
[~2017-11-17] VITALS: Ht 175.3 cm; Wt 95.3 kg
[~2017-11-17 16:09] MED LIST changes: +ALBU2.5V4 IH
[2017-11-17] MEDS ORDERED: RT-ALBUTEROL/IPRATROPIUM 3 ML (DUONEB) VIAL INH ONE (16:15)
--- OUTSIDE RECORDS SUMMARY | 2017-11-17 16:15 | XMS REPORT ---
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 [employer] Name Role Phone CHELSY MORALES Unavailable PROBLEMS Type Condition ICD9-CM Code HRO91-YU Code Onset Dates Condition Status SNOMED Code Problem Chronic nonseasonal allergic rhinitis due to other allergen J30.89 Active 43850960 Problem Hypothyroidism (acquired) E03.9 Active 078777666 Problem Moderate persistent asthma without complication J45.40 Active 276553831 Problem Hypothyroidism, unspecified type E03.9 Active [id number] ALLERGIES No Information ENCOUNTERS Encounter Location Date Diagnosis [place] [id number] [place] [address]- [address] May, Severe persistent asthma without complication J45.50 ; Chronic nonseasonal allergic rhinitis due to other allergen J30.89 and Hypothyroidism, unspecified type E03.9 [facility] [id number] [place] [address] 07645- 2484 Apr, [facility] [id number] [place] [address] 50010- 5613 Apr, [facility] [id number] [place] [address] 35747- 5726 Apr, [facility] [id number] [place] [address] 05077- 0123 Mar, Hypothyroidism (acquired) E03.9 [facility] [id number] [place] [address] 33960- 4439 Mar, [facility] [id number] [place] [address] 62105- 2457 Mar, Chest wall pain R07.89 [facility] [id number] [place] [address] 90118- 1556 Mar, [facility] [address] [id number] [address] [address] Dec, Moderate persistent asthma without complication J45.40 [facility] [address] [facility] [id number] [address] 14 Nov, 2016 [facility] [address] [id number] [address] 14 Aug, 2016 Moderate persistent asthma with acute exacerbation J45.41 and Hypothyroidism, unspecified type E03.9 [facility] [address] [id number] [address] Aug, Moderate persistent asthma with acute exacerbation J45.41 and Hypothyroidism, unspecified type E03.9 [facility] [address] [id number] [address] 0970 Sep, [facility] [address] [id number] [address] 8[address] Sep, [facility] [place] [address] [id number] [place] [id number] Jul, [facility] [address] [id number] [address]16 Jul, [facility] [place] [address] [id number] [place] [id number] Jun, [facility] [address] [id number] [address] 9565 Jun, [facility] [address] [id number] [address] 3550 Jun, [facility] [address] [id number] [address] 9166 Jun, [facility] [place] [address] [id number] [place] [id number] Jun, [facility] [address] [id number] 9226 Jun, [facility] [place] [address] [id number] [place] [id number] May, [facility] [place] [facility] [address] [id number] [place] [address]- 4716 May, [facility] [place] [address] [id number] [place] [id number] Apr, [facility] [address] [id number] [place] [address]- 3368 Apr, [facility] [place] [address] [id number] [place] [id number] Apr, [facility] [address] [id number] [place] [address] Apr, [facility] [place] [address] [id number] [place] [id number] Feb, [facility] [address] [id number] [place] [address]- 9522 Feb, [facility] [place] [address] [id number] [place] [id number] Feb, [facility] [place] [facility] [address] [id number] [place] [address]- 8423 Feb, [facility] [place] [address] [id number] [place] [id number] Jan, [facility] [place] [facility] [address] [id number] [place] [address] 1988 Jan, [facility] [place] [address] [id number] [place] [id number] Dec, [facility] [place] [facility] [address] [id number] [place] [address]- 8116 Dec, [facility] [place] [address] [id number] [place] [id number] Dec, [facility] [place] [address] [id number] [place] [address] Dec, [facility] [place] [facility] [address] [id number] [place] [address]- 7585 Dec, [facility] [place] [facility] [address] [id number] [place] [address]- 9789 Dec, [facility] [place] [facility] [address] [id number] [place] [address]- 4156 Nov, [facility] [place] [facility] [address] [id number] [place] [address]- 0951 Nov, [facility] [place] [facility] [address] [id number] [place] [address]- 7303 Nov, [facility] [place] [facility] [address] [id number] [place] [address]- 7126 Nov, [facility] [place] [facility] [address] [id number] [place] [address]- 7665 October, [facility] [place] [facility] [address] [id number] [place] [address]- 9327 October, [facility] [place] [facility] [address] [id number] [place] [address]- 7041 October, [facility] [place] [facility] [address] [id number] [place] [address]- 9626 October, [facility] [place] [facility] [address] [id number] [place] [address]- 6578 Sep, [facility] [place] [facility] [address] [id number] [place] [address]- 7215 Sep, [facility] [place] [facility] [address] [id number] [place] [address]- 5144 Jul, [facility] [place] [facility] [address] [id number] [place] [address]- 6084 Jun, [facility] [place] [facility] [address] [id number] [place] [address]- 4992 Jun, [facility] [place] [facility] [address] [id number] [place] [address]- 7763 Jun, [facility] [place] [facility] [address] [id number] [place] [address]- 5545 Jun, [facility] [place] [facility] [address] [id number] [place] [address]- 3863 Jun, [facility] [place] [facility] [address] [id number] [place] [address]- 5014 May, [facility] [place] [facility] [address] [id number] [place] [address]- 3466 May, [facility] [address] [id number] [place] [address]- 0212 May, [facility] [place] [facility] [address] [id number] [place] [address]- 3318 May, [facility] [address] [id number] [place] [address]- 2673 Feb, [facility] [address] [id number] [place] [address]- 5724 Dec, [facility] [place] [facility] [address] [id number] [place] [address]- 2926 Dec, [facility] [place] [facility] [address] [id number] [place] [address]- 5315 Dec, [facility] [place] [facility] [address] [id number] [place] [address]- 7055 Dec, [facility] [place] [facility] [address] [id number] [address]- 9068 Dec, [facility] [place] [facility] [address] [id number] [place] [address]- 2293 Nov, [facility] [place] [facility] [address] [id number] [place] [address]- 7232 Nov, [facility] [place] [facility] [address] [id number] [address]- 0902 Nov, [facility] [place] [facility] [address] [id number] [address]- 8854 Nov, [facility] [address] [id number] [place] [address]- 4916 October, [facility] [address] [id number] [place] [address]- 4195 October, [facility] [address] [facility] [id number] [place] [address]- 6002 October, [facility] [address] [id number] [place] [address]- 2592 Aug, [facility] [address] [id number] [place] [address]- 5430 Aug, [facility] [address] [id number] [place] [address]- 2392 Jul, [facility] [address] [facility] [id number] [place] [address]- 9491 Jun, [facility] [address] [id number] [place] [address]- 1567 Jun, [facility] [address] [facility] [id number] [place] [address]- 4644 May, [facility] [address] [facility] [id number] [place] [address]- 3698 May, [facility] [address] [id number] [address]- 3268 May, [facility] [place] [facility] [address] [id number] [address]- 2748 May, [facility] [place] [facility] [address] [id number] [place] [address] May, [facility] [place] [facility] [address] [id number] [place] [address]- 2390 May, [facility] [address] [facility] [id number] [place] [address]- 1257 May, [facility] [place] [facility] [address] [id number] [place] [address]- 8697 Mar, [facility] [place] [facility] [address] [id number] [place] [address]- 7537 08 Mar, 2012 [facility] [place] [facility] [address] [id number] [place] [address]- 8816 05 Mar, 2012 [facility] [place] [facility] [address] [id number] [place] [address]- 3816 19 Feb, 2011 [facility] [place] [facility] [address] [id number] [place] [address]- 5106 08 Feb, 2011 [facility] [place] [facility] [address] [id number] [place] [address]- 2326 05 Feb, 2011 [facility] [place] [facility] [address] [id number] [place] [address]- 0613 05 Feb, 2011 [facility] [place] [facility] [address] [id number] [place] [address]- 0613 Feb, 2011 [facility] [place] [facility] [address] [id number] [place] [address]- 0928 Feb, [facility] [place] [facility] [address] [id number] [place] [address]- 3558 Jan, [facility] [place] [facility] [address] [id number] [place] [address]- 2244 Jan, [facility] [place] [facility] [address] [id number] [place] [address]- 9248 Jan, [facility] [place] [facility] [address] [id number] [place] [address]- 254 Jan, [facility] [place] [facility] [address] [id number] [place] [address]- 6106 Jan, [facility] [place] [facility] [address] [id number] [place] [address]- 6916 Jan, [facility] [place] [facility] [address] [id number] [place] [address]- 6595 Jan, [facility] [place] [facility] [address] [id number] [place] [address]- 7311 Jan, [facility] [place] [facility] [address] [id number] [place] [address]- 8139 Jan, [facility] [place] [facility] [address] [id number] [place] [address]- 3735 Jan, [facility] [place] [facility] [address] [id number] [place] [address]- 5008 Jan, [facility] [place] [facility] [address] [id number] [place] [address]- 6879 Jan, [facility] [place] [facility] [address] [id number] [place] [address]- 6524 Dec, [facility] [place] [facility] [address] [id number] [place] [address]- 0650 Dec, [facility] [place] [facility] [address] [id number] [place] [address]- 6946 Dec, [facility] [place] [facility] [address] [id number] [place] [address]- 9810 Dec, [facility] [place] [facility] [address] [id number] [place] [address]- 2025 Dec, [facility] [place] [facility] [address] [id number] [place] [address]- 6360 Dec, [facility] [place] [facility] [address] [id number] [place] [address]- 1340 Nov, [facility] [place] [facility] [address] [id number] [place] [address]- 1743 Nov, [facility] [place] [facility] [address] [id number] [place] [address]- 4088 Nov, [facility] [place] [facility] [address] [id number] [place] [address]- 4778 Nov, [facility] [place] [facility] [address] [id number] [place] [address]- 8727 Nov, [facility] [address] [id number] [place] [address]- 0056 October, [facility] [address] [id number] [place] [address]- 5086 October, [facility] [address] [facility] [id number] [place] [address]- 8956 October, [facility] [address] [id number] [place] [address]- 5425 October, [facility] [address] [id number] [place] [address]- 0930 October, [facility] [address] [id number] [place] [address]- 8126 October, [facility] [address] [facility] [id number] [place] [address]- 2045 October, [facility] [address] [id number] [place] [address]- 3937 October, [facility] [address] [id number] [place] [address]- 0976 October, [facility] [address] [facility] [id number] [place] [address]- 5636 October, [facility] [address] [facility] [id number] [place] [address]- 8606 October, [facility] [address] [id number] [place] [address]- 0156 October, [facility] [address] [id number] [place] [address]- 9195 Sep, [facility] [address] [facility] [id number] [place] [address]- 8807 Sep, [facility] [address] [facility] [id number] [place] [address]- 3721 Sep, IMMUNIZATIONS No Known Immunizations SOCIAL HISTORY Never Assessed REASON FOR VISIT PLAN OF CARE VITAL SIGNS MEDICATIONS Unknown Medications RESULTS No Results PROCEDURES No Known procedures INSTRUCTIONS MEDICATIONS ADMINISTERED No Known Medications MEDICAL (GENERAL) HISTORY Type Description Date Medical History asthma Medical History hypothyroid Medical History Gerd Surgical History heart cath no interventions Hospitalization History asthma, shortness of breath x4 Hospitalization History chest pain
--- OUTSIDE RECORDS SUMMARY | 2017-11-17 16:15 | XMS REPORT ---
Author Author CHELSY MORALES Organization [facility] Address [address] [place] [address] Care Team Providers Care Instruction Librarian Name Role Phone CHELSY MORALES Unavailable PROBLEMS Type Condition ICD9-CM Code POQ47-GN Code Onset Dates Condition Status SNOMED Code Problem Chronic nonseasonal allergic rhinitis due to other allergen J30.89 Active 26004293 Problem Hypothyroidism (acquired) E03.9 Active 776236925 Problem Moderate persistent asthma without complication J45.40 Active 518288142 Problem Hypothyroidism, unspecified type E03.9 Active 35122175 ALLERGIES No Known Allergies ENCOUNTERS Encounter Location Date Diagnosis [place] [id number] [address] May, Severe persistent asthma without complication J45.50 ; Chronic nonseasonal allergic rhinitis due to other allergen J30.89 and Hypothyroidism, unspecified type E03.9 [facility] [id number] [place] [address] Apr, [facility] [id number] [place] [address]- [address] Apr, [facility] [id number] [place] [address]- [address] Apr, [facility] [id number] [place] [address]- 4181 Mar, Hypothyroidism (acquired) E03.9 [facility] [id number] [place] [address]- 1375 Mar, [facility] [id number] [place] [address] 36834- 6013 Mar, Chest wall pain R07.89 [facility] [id number] [place] [address]58[address]- [address]486 Mar, [facility] [address] [place] [address] [id number] [address]46 Dec, Moderate persistent asthma without complication J45.40 [facility] [address] [facility] [id number], [place] [address] 2546 14 Nov, 2016 [facility] [address] [id number], [place] [address] 14 Aug, 2016 Moderate persistent asthma with acute exacerbation J45.41 and Hypothyroidism, unspecified type E03.9 [facility] [address] [id number], [place] [address] 2546 Aug, Moderate persistent asthma with acute exacerbation J45.41 and Hypothyroidism, unspecified type E03.9 [facility] [address] [id number], [place] [address] 4076 Sep, [facility] [address] [id number], [place] [address] Sep, [facility] [place] [address] [id number] [place] [id number] Jul, [facility] [address] [id number], [place] [address] Jul, [facility] [place] [address] [id number] [place] [id number] Jun, [facility] [address] [id number], [place] [address] Jun, [facility] [address] [id number], [place] [address] 1606 Jun, [facility] [address] [id number], [place] [address] Jun, [facility] [place] [address] [id number] [facility] [place] [id number] Jun, [facility] [address] [id number], [place] [address] Jun, [facility] [place] [address] [id number] [place] [id number] May, [facility] [place] [facility] [address] [id number] [place] [address] 9[address] May, [facility] [place] [address] [id number] [place] [id number] Apr, [facility] [address] [id number] [place] [address]- 9576 Apr, [facility] [place] [address] [id number] [place] [id number] Apr, [facility] [address] [id number] [place] [address]- 7322 Apr, [facility] [place] [address] [id number] [place] [id number] Feb, [facility] [address] [id number] [place] [address] Feb, [facility] [place] [address] [id number] [place] [id number] Feb, [facility] [place] [facility] [address] [id number] [place] [address] Feb, [facility] [place] [address] [id number] [place] [id number] Jan, [facility] [place] [facility] [address] [id number] [place] [address]- 4243 Jan, [facility] [place] [address] [id number] [place] [id number] Dec, [facility] [place] [facility] [address] [id number] [facility] [place] [address]- 2936 Dec, [facility] [place] [address] [id number] [place] [address] Dec, [facility] [place] [address] [id number] [place] [address] Dec, [facility] [place] [facility] [address] [id number] [place] [address]- 0500 Dec, [facility] [address] [id number] [place] [address]- 3292 Dec, [facility] [place] [facility] [address] [id number] [place] [address]- 3302 Nov, [facility] [place] [facility] [address] [id number] [place] [address]- 6654 Nov, [facility] [place] [facility] [address] [id number] [place] [address]- 9310 Nov, [facility] [place] [facility] [address] [id number] [place] [address]- 3782 Nov, [facility] [place] [facility] [address] [id number] [place] [address]- 0819 October, [facility] [place] [facility] [address] [id number] [place] [address]- 8842 October, [facility] [place] [facility] [address] [id number] [place] [address]- 3708 October, [facility] [place] [facility] [address] [id number] [place] [address]- 2511 October, [facility] [place] [facility] [address] [id number] [place] [address]- 5467 Sep, [facility] [place] [facility] [address] [id number] [place] [address]- 3086 Sep, [facility] [place] [facility] [address] [id number] [place] [address]- 9244 Jul, [facility] [place] [facility] [address] [id number] [place] [address]- 0564 Jun, [facility] [place] [facility] [address] [id number] [place] [address]- 1424 Jun, [facility] [place] [facility] [address] [id number] [place] [address]- 3289 Jun, [facility] [address] [id number] [place] [address]- 1452 Jun, [facility] [place] [facility] [address] [id number] [place] [address]- 0593 Jun, [facility] [place] [facility] [address] [id number] [place] [address]- 4316 May, [facility] [place] [facility] [address] [id number] [place] [address]- 1798 May, [facility] [place] [facility] [address] [id number] [place] [address]- 1631 May, [facility] [place] [facility] [address] [id number] [place] [address]- 4767 May, [facility] [place] [facility] [address] [id number] [place] [address]- 3538 Feb, [facility] [place] [facility] [address] [id number] [place] [address]- 6743 Dec, [facility] [place] [facility] [address] [id number] [place] [address]- 2431 Dec, [facility] [place] [facility] [address] [id number], [place] [address]- 5613 Dec, [facility] [place] [facility] [address] [id number], [place] [address]- 7789 Dec, [facility] [place] [facility] [address] [id number], [place] [address]- 7335 Dec, [facility] [place] [facility] [address] [id number] [place] [address]- 8869 Nov, [facility] [place] [facility] [address] [id number], [place] [address]- 5782 Nov, [facility] [place] [facility] [address] [id number], [place] [address]- 0988 Nov, [facility] [place] [facility] [address] [id number], [place] [address]- 4773 Nov, [facility] [address] [id number] [place] [address]- 4375 October, [facility] [address] [id number] [place] [address]- 9806 October, [facility] [address] [id number] [place] [address]- 7976 October, [facility] [address] [id number] [place] [address]- 5802 Aug, [facility] [address] [id number] [place] [address]- 8392 Aug, [facility] [address] [id number] [place] [address]- 9433 Jul, [facility] [address] [facility] [id number] [place] [address]- 2785 Jun, [facility] [address] [id number] [place] [address]- 4209 Jun, [facility] [address] [facility] [id number] [place] [address]- 5173 May, [facility] [address] [id number] [place] [address]- 2106 May, [facility] [address] [id number] [place] [address]- 7135 May, [facility] [address] [id number], [place] [address]- 8443 May, [facility] [address] [id number] [place] [address]- 0185 May, [facility] [address] [id number] [place] [address]- 1991 May, [facility] [address] [facility] [id number] [place] [address]- 1644 May, [facility] [place] [facility] [address] [id number] [place] [address]- 8720 Mar, [facility] [place] [facility] [address] [id number] [place] [address]- 4986 08 Mar, 2012 [facility] [place] [facility] [address] [id number] [place] [address]- 6636 05 Mar, 2012 [facility] [place] [facility] [address] [id number] [place] [address]- 4866 19 Feb, 2011 [facility] [place] [facility] [address] [id number] [place] [address] 2546 08 Feb, 2011 [facility] [place] [facility] [address] [id number] [place] [address]- 5236 05 Feb, 2011 [facility] [place] [facility] [address] [id number] [place] [address]- 7397 05 Feb, 2011 [facility] [place] [facility] [address] [id number] [place] [address]- 9338 04 Feb, 2011 [facility] [place] [facility] [address] [id number] [place] [address]- 0049 Feb, [facility] [place] [facility] [address] [id number] [place] [address]- 5159 Jan, [facility] [place] [facility] [address] [id number] [place] [address]- 5302 Jan, [facility] [place] [facility] [address] [id number] [place] [address]- 2936 Jan, [facility] [place] [facility] [address] [id number] [place] [address] 2543 Jan, [facility] [place] [facility] [address] [id number] [place] [address]- 6536 Jan, [facility] [place] [facility] [address] [id number] [place] [address]- 2545 Jan, [facility] [place] [facility] [address] [id number] [place] [address]- 8660 Jan, [facility] [place] [facility] [address] [id number] [place] [address]- 8252 Jan, [facility] [place] [facility] [address] [id number] [place] [address]- 7810 Jan, [facility] [place] [facility] [address] [id number] [place] [address]- 2841 Jan, [facility] [place] [facility] [address] [id number] [place] [address]- 7495 Jan, [facility] [place] [facility] [address] [id number] [place] [address]- 1005 Jan, [facility] [place] [facility] [address] [id number] [place] [address]- 5710 Dec, [facility] [place] [facility] [address] [id number] [place] [address]- 9290 Dec, [facility] [place] [facility] [address] [id number] [place] [address]- 9613 Dec, [facility] [place] [facility] [address] [id number] [place] [address]- 3618 Dec, [facility] [place] [facility] [address] [id number] [place] [address]- 9281 Dec, [facility] [place] [facility] [address] [id number] [place] [address]- 7297 Dec, [facility] [place] [facility] [address] [id number] [place] [address]- 5094 Nov, [facility] [place] [facility] [address] [id number] [place] [address]- 5287 Nov, [facility] [place] [facility] [address] [id number] [place] [address]- 6669 Nov, [facility] [place] [facility] [address] [id number] [place] [address]- 2047 Nov, [facility] [place] [facility] [address] [id number] [place] [address]- 7171 Nov, [facility] [address] [id number] [place] [address]- 0326 October, [facility] [address] [id number] [place] [address]- 6636 October, [facility] [address] [id number] [place] [address]- 7946 October, [facility] [address] [id number] [place] [address]- 4664 October, [facility] [address] [id number] [place] [address]- 6539 October, [facility] [address] [id number] [place] [address]- 9476 October, [facility] [address] [facility] [id number] [place] [address]- 5888 October, [facility] [address] [id number] [place] [address]- 3365 October, [facility] [address] [id number] [place] [address]- 7556 October, [facility] [address] [facility] [id number] [place] [address]- 0023 October, [facility] [address] [id number] [place] [address]- 1836 October, [facility] [address] [id number] [place] [address]- 9676 October, [facility] [address] [id number] [place] [address]- 9017 Sep, [facility] [address] [facility] [id number] [place] [address]- 1544 Sep, [facility] [address] [id number] [place] [address]- 3162 Sep, IMMUNIZATIONS No Known Immunizations SOCIAL HISTORY Never Assessed REASON FOR VISIT SOB, chest pain. PT went out to [facility] and was told he had chest wall pain. Two days at work he had left arm pain and tingling shoot down his leg [place], out of all meds PLAN OF CARE VITAL SIGNS Height 69 in 2017-03-15 Weight 209.4 lbs 2017-03-15 Temperature 97.8 degrees Fahrenheit 2017-03-15 Heart Rate 90 bpm 2017-03-15 Respiratory Rate 22 2017-03-15 Oximetry 96 % 2017-03-15 BMI 30.92 kg/m2 2017-03-15 Blood pressure systolic 124 mmHg 2017-03-15 Blood pressure diastolic 88 mmHg 2017-03-15 MEDICATIONS Medication Instructions Dosage Frequency Start Date End Date Duration Status PredniSONE 20 mg Orally Once a day 2 tablets 24h Mar, Mar, 05 days Active Nebulizer - inhalation every 6 hours as needed as directed Aug, Active Ketorolac Tromethamine 10 mg Orally 3 times a day 1 tablet with food or milk as needed 8h Mar, Mar, 03 days Active ProAir HFA 108 (90 Base) MCG/ACT Inhalation 4 times a day 2 puffs as needed 6h Active Albuterol Sulfate (2.5 MG/3ML) 0.083% Inhalation every 6 hrs, voucher 1st fill 3 ml as needed Apr, Active Singulair 10 mg Orally Once a day 1 tablet in the evening 24h Dec, Active Claritin 10 mg Orally Once a day 1 tablet 24h Dec, 2 Jul, 2017 30 day(s) Active RESULTS No Results PROCEDURES Procedure Date Ordered Result Body Site MEASURE BLOOD OXYGEN LEVEL Mar 15, 2017 INSTRUCTIONS MEDICATIONS ADMINISTERED No Known Medications MEDICAL (GENERAL) HISTORY Type Description Date Medical History asthma Medical History hypothyroid Medical History Gerd Surgical History heart cath no interventions Hospitalization History asthma, shortness of breath x4 Hospitalization History chest pain
--- OUTSIDE RECORDS SUMMARY | 2017-11-17 16:15 | XMS REPORT ---
Author Author CHELSY MORALES Organization [facility] Address [address] [place] [address] Care Team Providers Care Derrick Operator Name Role Phone CHELSY MORALES Unavailable PROBLEMS Type Condition ICD9-CM Code [id number] Code Onset Dates Condition Status SNOMED Code Problem Chronic nonseasonal allergic rhinitis due to other allergen J30.89 Active 53367938 Problem Hypothyroidism (acquired) E03.9 Active 417437701 Problem Moderate persistent asthma without complication J45.40 Active 390930142 Problem Hypothyroidism, unspecified type E03.9 Active 70475089 ALLERGIES No Information ENCOUNTERS Encounter Location Date Diagnosis [place] [id number] [place] [address]69- [address] May, Severe persistent asthma without complication J45.50 ; Chronic nonseasonal allergic rhinitis due to other allergen J30.89 and Hypothyroidism, unspecified type E03.9 [facility] [id number] [place] [address] 11875- 5127 Apr, [facility] [id number] [place] [address] 98843- 7135 Apr, [facility] [id number] [place] [address] 64525- 0848 Apr, [facility] [id number] [place] [address] 30388- 8917 Mar, Hypothyroidism (acquired) E03.9 [facility] [id number] [place] [address] 11688- 4875 Mar, [facility] [id number] [place] [address] 77655- 6613 Mar, Chest wall pain R07.89 [facility] [id number] [place] [address] 58861- 7564 Mar, [facility] [address] [id number] [address] [address] Dec, Moderate persistent asthma without complication J45.40 [facility] [address] [facility] [id number] [address]186 14 Nov, 2016 [facility] [address] [id number] [address]83 14 Aug, 2016 Moderate persistent asthma with acute exacerbation J45.41 and Hypothyroidism, unspecified type E03.9 [facility] [address] [id number] Aug, Moderate persistent asthma with acute exacerbation J45.41 and Hypothyroidism, unspecified type E03.9 [facility] [address] [id number] [address] 26[address] Sep, [facility] [address] [id number] [address] 8667 Sep, [facility] [place] [address] [id number] [place] [id number] Jul, [facility] [address] [id number] [address] 1385 Jul, [facility] [place] [address] [id number] [place] [id number] Jun, [facility] [address] [id number] [address] 7499 Jun, [facility] [id number] [address] 5947 Jun, [facility] [address] [id number] [address] 9286 Jun, [facility] [place] [address] [id number] [place] [id number] Jun, [facility] [address] [id number] [address]056 Jun, [facility] [place] [address] [id number] [place] [id number] May, [facility] [place] [facility] [address] [id number] [place] [address] 3516 May, [facility] [place] [address] [id number] [place] [id number] Apr, [facility] [address] [id number] [place] [address]- 8250 Apr, [facility] [place] [address] [id number] [place] [id number] Apr, [facility] [address] [id number] [place] [address] Apr, [facility] [place] [address] [id number] [place] [id number] Feb, [facility] [address] [id number] [place] [address]- 6356 Feb, [facility] [place] [address] [id number] [place] [id number] Feb, [facility] [place] [facility] [address] [id number] [place] [address]- 7202 Feb, [facility] [place] [address] [id number] [place] [id number] Jan, [facility] [place] [facility] [address] [id number] [place] [address]- 8914 Jan, [facility] [place] [address] [id number] [place] [id number] Dec, [facility] [place] [facility] [address] [id number] [place] [address]- 4936 Dec, [facility] [place] [address] [id number] [place] [id number] Dec, [facility] [place] [address] [id number] [place] [id number] Dec, [facility] [place] [facility] [address] [id number] [place] [address]- 0205 Dec, [facility] [place] [facility] [address] [id number] [place] [address]- 5954 Dec, [facility] [place] [facility] [address] [id number] [place] [address]- 8703 Nov, [facility] [place] [facility] [address] [id number] [place] [address]- 5917 Nov, [facility] [place] [facility] [address] [id number] [place] [address]- 7560 Nov, [facility] [place] [facility] [address] [id number] [place] [address]- 2078 Nov, [facility] [place] [facility] [address] [id number] [place] [address]- 8956 October, [facility] [place] [facility] [address] [id number] [place] [address]- 1323 October, [facility] [place] [facility] [address] [id number] [place] [address]- 7606 October, [facility] [place] [facility] [address] [id number] [place] [address]- 0453 October, [facility] [place] [facility] [address] [id number] [place] [address]- 0109 Sep, [facility] [place] [facility] [address] [id number] [place] [address]- 3190 Sep, [facility] [place] [facility] [address] [id number] [place] [address]- 9249 Jul, [facility] [place] [facility] [address] [id number] [place] [address]- 1843 Jun, [facility] [place] [facility] [address] [id number] [place] [address]- 2904 Jun, [facility] [place] [facility] [address] [id number] [place] [address]- 9832 Jun, [facility] [place] [facility] [address] [id number] [place] [address]- 3350 Jun, [facility] [place] [facility] [address] [id number] [place] [address]- 3097 Jun, [facility] [place] [facility] [address] [id number] [place] [address]- 8192 May, [facility] [place] [facility] [address] [id number] [place] [address]- 2309 May, [facility] [address] [id number] [place] [address]- 7650 May, [facility] [place] [facility] [address] [id number] [place] [address]- 4607 May, [facility] [address] [id number] [place] [address]- 2285 Feb, [facility] [address] [id number] [place] [address]- 1182 Dec, [facility] [place] [facility] [address] [id number] [place] [address]- 9614 Dec, [facility] [place] [facility] [address] [id number] [place] [address]- 1134 Dec, [facility] [place] [facility] [address] [id number] [place] [address]- 4542 Dec, [facility] [place] [facility] [address] [id number] [address]- 7862 Dec, [facility] [place] [facility] [address] [id number] [place] [address]- 0216 Nov, [facility] [place] [facility] [address] [id number] [place] [address]- 9578 Nov, [facility] [place] [facility] [address] [id number], [place] [address]- 4670 Nov, [facility] [place] [facility] [address] [id number], [place] [address]- 5271 Nov, [facility] [address] [id number] [place] [address]- 7958 October, [facility] [address] [id number] [place] [address]- 1709 October, [facility] [address] [facility] [id number] [place] [address]- 5374 October, [facility] [address] [id number] [place] [address]- 2013 Aug, [facility] [address] [id number] [place] [address]- 3820 Aug, [facility] [address] [id number] [place] [address]- 2342 Jul, [facility] [address] [facility] [id number] [place] [address]- 2511 Jun, [facility] [address] [id number] [place] [address]- 7323 Jun, [facility] [address] [facility] [id number] [place] [address]- 7321 May, [facility] [address] [facility] [id number] [place] [address]- 5703 May, [facility] [address] [id number], [place] [address]- 8436 May, [facility] [place] [facility] [address] [id number], [place] [address]- 6651 May, [facility] [place] [facility] [address] [id number] [place] 9232 May, [facility] [place] [facility] [address] [id number] [place] [address]- 7472 May, [facility] [address] [facility] [id number] [place] [address]- 7894 May, [facility] [place] [facility] [address] [id number] [place] [address]- 8777 Mar, [facility] [place] [facility] [address] [id number] [place] [address]- 3937 08 Mar, 2012 [facility] [place] [facility] [address] [id number] [place] [address]- 4556 05 Mar, 2012 [facility] [place] [facility] [address] [id number] [place] [address]- 9066 19 Feb, 2011 [facility] [place] [facility] [address] [id number] [place] [address]- 9546 08 Feb, 2011 [facility] [place] [facility] [address] [id number] [place] [address]- 2116 05 Feb, 2011 [facility] [place] [facility] [address] [id number] [place] [address]- 7777 05 Feb, 2011 [facility] [place] [facility] [address] [id number] [place] [address]- 4100 Feb, 2011 [facility] [place] [facility] [address] [id number] [place] [address]- 1905 Feb, [facility] [place] [facility] [address] [id number] [place] [address]- 5442 Jan, [facility] [place] [facility] [address] [id number] [place] [address]- 6023 Jan, [facility] [place] [facility] [address] [id number] [place] [address]- 9709 Jan, [facility] [place] [facility] [address] [id number] [place] [address]- 2540 Jan, [facility] [place] [facility] [address] [id number] [place] [address]- 3646 Jan, [facility] [place] [facility] [address] [id number] [place] [address]- 4759 Jan, [facility] [place] [facility] [address] [id number] [place] [address]- 4596 Jan, [facility] [place] [facility] [address] [id number] [place] [address]- 9508 Jan, [facility] [place] [facility] [address] [id number] [place] [address]- 1394 Jan, [facility] [place] [facility] [address] [id number] [place] [address]- 1376 Jan, [facility] [place] [facility] [address] [id number] [place] [address]- 2791 Jan, [facility] [place] [facility] [address] [id number] [place] [address]- 6067 Jan, [facility] [place] [facility] [address] [id number] [place] [address]- 0867 Dec, [facility] [place] [facility] [address] [id number] [place] [address]- 2060 Dec, [facility] [place] [facility] [address] [id number] [place] [address]- 4232 Dec, [facility] [place] [facility] [address] [id number] [place] [address]- 6969 Dec, [facility] [place] [facility] [address] [id number] [place] [address]- 5282 Dec, [facility] [place] [facility] [address] [id number] [place] [address]- 7822 Dec, [facility] [place] [facility] [address] [id number] [place] [address]- 3390 Nov, [facility] [place] [facility] [address] [id number] [place] [address]- 4356 Nov, [facility] [place] [facility] [address] [id number] [place] [address]- 7675 Nov, [facility] [place] [facility] [address] [id number] [place] [address]- 5782 Nov, [facility] [place] [facility] [address] [id number] [place] [address]- 8536 Nov, [facility] [address] [id number] [place] [address]- 0216 October, [facility] [address] [id number] [place] [address]- 9746 October, [facility] [address] [facility] [id number] [place] [address]- 2866 October, [facility] [address] [id number] [place] [address]- 7502 October, [facility] [address] [id number] [place] [address]- 5021 October, [facility] [address] [id number] [place] [address]- 0366 October, [facility] [address] [facility] [id number] [place] [address]- 5736 October, [facility] [address] [id number] [place] [address]- 3517 October, [facility] [address] [id number] [place] [address]- 0086 October, [facility] [address] [facility] [id number] [place] [address]- 7776 October, [facility] [address] [facility] [id number] [place] [address]- 8316 October, [facility] [address] [id number] [place] [address]- 4666 October, [facility] [address] [id number] [place] [address]- 0864 Sep, [facility] [address] [facility] [id number] [place] [address]- 1326 Sep, [facility] [address] [facility] [id number] [place] [address]- 6420 Sep, IMMUNIZATIONS No Known Immunizations SOCIAL HISTORY Never Assessed REASON FOR VISIT FYI PLAN OF CARE VITAL SIGNS MEDICATIONS Unknown Medications RESULTS No Results PROCEDURES No Known procedures INSTRUCTIONS MEDICATIONS ADMINISTERED No Known Medications MEDICAL (GENERAL) HISTORY Type Description Date Medical History asthma Medical History hypothyroid Medical History Gerd Surgical History heart cath no interventions Hospitalization History asthma, shortness of breath x4 Hospitalization History chest pain
[2017-11-17] MEDS ORDERED: RX-ALBUTEROL INHALER (PROAIR) 8 GM IH STA (16:16)
--- OUTSIDE RECORDS SUMMARY | 2017-11-17 16:16 | XMS REPORT ---
Author Author CHELSY MORALES Organization [facility] Address [address] [place] [address] Care Team Providers Care Software Application Tester Name Role Phone CHELSY MORALES Unavailable PROBLEMS Type Condition ICD9-CM Code VQL55-TE Code Onset Dates Condition Status SNOMED Code Problem Chronic nonseasonal allergic rhinitis due to other allergen J30.89 Active 93919458 Problem Hypothyroidism (acquired) E03.9 Active 469445455 Problem Moderate persistent asthma without complication J45.40 Active 510943966 Problem Hypothyroidism, unspecified type E03.9 Active 17804465 ALLERGIES No Known Allergies ENCOUNTERS Encounter Location Date Diagnosis [place] [address] [address] May, Severe persistent asthma without complication J45.50 ; Chronic nonseasonal allergic rhinitis due to other allergen J30.89 and Hypothyroidism, unspecified type E03.9 [facility] [address] [place] [place] [id number] [place] [address]- 9236 Apr, [facility] [id number] [place] [address]60- 3850 Apr, [facility] [id number] [place] [address]46- 0540 Apr, [facility] [id number] [place] [address] 85077- 9646 Mar, Hypothyroidism (acquired) E03.9 [facility] [id number] [place] [address]120- 8386 Mar, [facility] [id number] [place] [address] 65446- 5304 Mar, Chest wall pain R07.89 [facility] [id number] [place] [address]9869- 5726 Mar, [facility] [address] [id number] [address] 2546 Dec, Moderate persistent asthma without complication J45.40 [facility] [address] [facility] [id number] [address] 2546 14 Nov, 2016 [facility] [address] [id number] [address] 14 Aug, 2016 Moderate persistent asthma with acute exacerbation J45.41 and Hypothyroidism, unspecified type E03.9 [facility] [address] [id number] [address] 2546 Aug, Moderate persistent asthma with acute exacerbation J45.41 and Hypothyroidism, unspecified type E03.9 [facility] [address] [id number] [address] 0446 Sep, [facility] [address] [id number] [address] 7[address] Sep, [facility] [place] [address] [id number] [place] [id number] Jul, [facility] [address] [id number] [address] Jul, [facility] [place] [address] [id number] [place] [id number] Jun, [facility] [address] [id number] [address] 3326 Jun, [facility] [address] [id number] [address] Jun, [facility] [address] [id number] [address] 6736 Jun, [facility] [place] [address] [id number] [facility] [place] [id number] Jun, [facility] [address] [id number] [address] 1396 Jun, [facility] [place] [address] [id number] [place] [id number] May, [facility] [place] [facility] [address] [id number] [place] [address] 2496 May, [facility] [place] [address] [id number] [place] [id number] Apr, [facility] [address] [id number] [place] [address]- 7816 Apr, [facility] [place] [address] [id number] [place] [id number] Apr, [facility] [address] [id number] [place] [address]- 1209 Apr, [facility] [place] [address] [id number] [place] [id number] Feb, [facility] [address] [id number] [place] [address] Feb, [facility] [place] [address] [id number] [place] [id number] Feb, [facility] [place] [facility] [address] [id number] [place] [address] Feb, [facility] [place] [address] [id number] [place] [id number] Jan, [facility] [place] [facility] [address] [id number] [place] [address]- 2117 Jan, [facility] [place] [address] [id number] [place] [id number] Dec, [facility] [place] [facility] [address] [id number] [facility] [place] [address] 7596 Dec, [facility] [place] [address] [id number] [place] [id number] Dec, [facility] [place] [address] [id number] [place] [id number] Dec, [facility] [place] [facility] [address] [id number] [place] [address]- 0522 Dec, [facility] [address] [id number] [place] [address]- 4549 Dec, [facility] [place] [facility] [address] [id number] [place] [address]- 0926 Nov, [facility] [place] [facility] [address] [id number] [place] [address]- 3776 Nov, [facility] [place] [facility] [address] [id number] [place] [address]- 0273 Nov, [facility] [place] [facility] [address] [id number] [place] [address]- 8476 Nov, [facility] [place] [facility] [address] [id number] [place] [address]- 3940 October, [facility] [place] [facility] [address] [id number] [place] [address]- 3422 October, [facility] [place] [facility] [address] [id number] [place] [address]- 4404 October, [facility] [place] [facility] [address] [id number] [place] [address]- 7451 October, [facility] [place] [facility] [address] [id number] [place] [address]- 5383 Sep, [facility] [place] [facility] [address] [id number] [place] [address]- 8553 Sep, [facility] [place] [facility] [address] [id number] [place] [address]- 1721 Jul, [facility] [place] [facility] [address] [id number] [place] [address]- 4252 Jun, [facility] [place] [facility] [address] [id number] [place] [address]- 8433 Jun, [facility] [place] [facility] [address] [id number] [place] [address]- 2110 Jun, [facility] [address] [id number] [place] [address]- 8270 Jun, [facility] [place] [facility] [address] [id number] [place] [address]- 0366 Jun, [facility] [place] [facility] [address] [id number] [place] [address]- 1205 May, [facility] [place] [facility] [address] [id number] [place] [address]- 5784 May, [facility] [place] [facility] [address] [id number] [place] [address]- 3025 May, [facility] [place] [facility] [address] [id number] [place] [address]- 5778 May, [facility] [place] [facility] [address] [id number] [place] [address]- 0643 Feb, [facility] [place] [facility] [address] [id number] [place] [address]- 8778 Dec, [facility] [place] [facility] [address] [id number] [place] [address]- 6606 Dec, [facility] [place] [facility] [address] [id number] [address]- 5607 Dec, [facility] [place] [facility] [address] [id number] [address]- 7674 Dec, [facility] [place] [facility] [address] [id number] [place] [address]- 8048 Dec, [facility] [place] [facility] [address] [id number] [place] [address]- 6712 Nov, [facility] [place] [facility] [address] [id number] [place] [address]- 7382 Nov, [facility] [place] [facility] [address] [id number] [address]- 6259 Nov, [facility] [place] [facility] [address] [id number] [address]- 7275 Nov, [facility] [address] [id number] [place] [address]- 9911 October, [facility] [address] [id number] [place] [address]- 5144 October, [facility] [address] [id number] [place] [address]- 3116 October, [facility] [address] [id number] [place] [address]- 6272 Aug, [facility] [address] [id number] [place] [address]- 2864 Aug, [facility] [address] [id number] [place] [address]- 4999 Jul, [facility] [address] [facility] [id number] [place] [address]- 6851 Jun, [facility] [address] [id number] [place] [address]- 6935 Jun, [facility] [address] [facility] [id number] [place] [address]- 3384 May, [facility] [address] [id number] [place] [address]- 7515 May, [facility] [address] [id number] [place] [address]- 8052 May, [facility] [address] [id number] [place] [address]- 7308 May, [facility] [address] [id number] [place] [address]- 8293 May, [facility] [address] [id number] [place] [address]- 0849 May, [facility] [address] [facility] [id number] [place] [address]- 8207 May, [facility] [place] [facility] [address] [id number] [place] [address]- 6126 Mar, [facility] [place] [facility] [address] [id number] [place] [address]- 9946 08 Mar, 2012 [facility] [place] [facility] [address] [id number] [place] [address]- 7816 05 Mar, 2012 [facility] [place] [facility] [address] [id number] [place] [address]- 7106 19 Feb, 2011 [facility] [place] [facility] [address] [id number] [place] [address] 2546 08 Feb, 2011 [facility] [place] [facility] [address] [id number] [place] [address]- 0106 05 Feb, 2011 [facility] [place] [facility] [address] [id number] [place] [address]- 8002 05 Feb, 2011 [facility] [place] [facility] [address] [id number] [place] [address]- 3862 04 Feb, 2011 [facility] [place] [facility] [address] [id number] [place] [address]- 9142 Feb, [facility] [place] [facility] [address] [id number] [place] [address]- 8579 Jan, [facility] [place] [facility] [address] [id number] [place] [address]- 5190 Jan, [facility] [place] [facility] [address] [id number] [place] [address]- 0841 Jan, [facility] [place] [facility] [address] [id number] [place] [address] 2545 Jan, [facility] [place] [facility] [address] [id number] [place] [address]- 3626 Jan, [facility] [place] [facility] [address] [id number] [place] [address]- 2541 Jan, [facility] [place] [facility] [address] [id number] [place] [address]- 5730 Jan, [facility] [place] [facility] [address] [id number] [place] [address]- 3231 Jan, [facility] [place] [facility] [address] [id number] [place] [address]- 5816 Jan, [facility] [place] [facility] [address] [id number] [place] [address]- 0992 Jan, [facility] [place] [facility] [address] [id number] [place] [address]- 4229 Jan, [facility] [place] [facility] [address] [id number] [place] [address]- 2566 Jan, [facility] [place] [facility] [address] [id number] [place] [address]- 3339 Dec, [facility] [place] [facility] [address] [id number] [place] [address]- 0507 Dec, [facility] [place] [facility] [address] [id number] [place] [address]- 6616 Dec, [facility] [place] [facility] [address] [id number] [place] [address]- 1735 Dec, [facility] [place] [facility] [address] [id number] [place] [address]- 8631 Dec, [facility] [place] [facility] [address] [id number] [place] [address]- 8018 Dec, [facility] [place] [facility] [address] [id number] [place] [address]- 8388 Nov, [facility] [place] [facility] [address] [id number] [place] [address]- 5137 Nov, [facility] [place] [facility] [address] [id number] [place] [address]- 4559 Nov, [facility] [place] [facility] [address] [id number] [place] [address]- 2823 Nov, [facility] [place] [facility] [address] [facility] [id number] [place] [address]- 7807 Nov, [facility] [address] [id number] [place] [address]- 3396 October, [facility] [address] [facility] [id number] [place] [address]- 5206 October, [facility] [address] [facility] [id number] [place] [address]- 3516 October, [facility] [address] [id number] [place] [address]- 9561 October, [facility] [address] [id number] [place] [address]- 2387 October, [facility] [address] [facility] [id number] [place] [address]- 7466 October, [facility] [address] [id number] [address]- 2479 October, [facility] [address] [facility] [id number] [place] [address]- 6866 October, [facility] [address] [facility] [id number] [place] [address]- 5796 October, [facility] [address] [facility] [id number] [place] [address]- 9806 October, [facility] [address] [id number] [address]- 1906 October, [facility] [address] [facility] [id number] [place] [address]- 5316 October, [facility] [address] [facility] [id number] [place] [address]- 4104 Sep, [facility] [address] [facility] [id number] [place] [address]- 6266 Sep, [facility] [address] [facility] [id number] [address]- 3611 Sep, IMMUNIZATIONS Vaccine Route Administration Date Status DEPO MEDROL 80 MG/ML IM Intramuscular May 18, 2017 Administered SOCIAL HISTORY Never Assessed REASON FOR VISIT Hypothyroidism/asthma - Javon RN, Has been to ER twice for asthma attacks since last visit, Seeing Dr. Damian on 05/31/17 PLAN OF CARE VITAL SIGNS Height 69 in 2017-05-18 Weight 221 lbs 2017-05-18 Heart Rate 88 bpm 2017-05-18 Respiratory Rate 24 2017-05-18 Oximetry on room air:97 % 2017-05-18 BMI 32.63 kg/m2 2017-05-18 Blood pressure systolic 132 mmHg 2017-05-18 Blood pressure diastolic 88 mmHg 2017-05-18 MEDICATIONS Medication Instructions Dosage Frequency Start Date End Date Duration Status Claritin 10 mg Orally Once a day 1 tablet 24h Dec, 2 Jul, 2017 30 day(s) Not-Taking Levothyroxine Sodium 50 mcg Orally Once a day 1 tablet on an empty stomach in the morning 24h Mar, 30 day(s) Active Nebulizer - inhalation every 6 hours as needed as directed Aug, Active Albuterol Sulfate (2.5 MG/3ML) 0.083% Inhalation every 6 hrs, voucher 1st fill 3 ml as needed Apr, Active ProAir HFA 108 (90 Base) MCG/ACT Inhalation 4 times a day 2 puffs as needed 6h Active RESULTS Name Result Date Reference Range RAST (OUTSIDE LAB) 2017-05-31 TSH (OUTSIDE LAB) PROCEDURES Procedure Date Ordered Result Body Site MEASURE BLOOD OXYGEN LEVEL May 18, 2017 THER/PROPH/DIAG INJ, SC/IM May 18, 2017 DEPO MEDROL 80 MG/ML May 18, 2017 INSTRUCTIONS MEDICATIONS ADMINISTERED No Known Medications MEDICAL (GENERAL) HISTORY Type Description Date Medical History asthma Medical History hypothyroid Medical History Gerd Surgical History heart cath no interventions Hospitalization History asthma, shortness of breath x4 Hospitalization History chest pain
--- OUTSIDE RECORDS SUMMARY | 2017-11-17 16:16 | XMS REPORT ---
Author Author CHELSY MORALES Organization [facility] [place] Address [address] [place] [address] Care Team Providers Care Retread Mold Operator Name Role Phone CHELSY MORALES Unavailable PROBLEMS Type Condition ICD9-CM Code CKD29-QV Code Onset Dates Condition Status SNOMED Code Problem Chronic nonseasonal allergic rhinitis due to other allergen J30.89 Active 48895416 Problem Hypothyroidism (acquired) E03.9 Active 961330649 Problem Moderate persistent asthma without complication J45.40 Active 627776691 Problem Hypothyroidism, unspecified type E03.9 Active 24557885 ALLERGIES No Known Allergies ENCOUNTERS Encounter Location Date Diagnosis [place] [id number] [place] [address]64- 7519 May, Severe persistent asthma without complication J45.50 ; Chronic nonseasonal allergic rhinitis due to other allergen J30.89 and Hypothyroidism, unspecified type E03.9 [facility] [place] [id number] [place] [address] 71349- 4162 Apr, [facility] [place] [id number] [place] [address] 59756- 3481 Apr, [facility] [place] [id number] [place] [address] 26000- 4392 Apr, [facility] [place] [id number] [place] [address] 57858- 1946 Mar, Hypothyroidism (acquired) E03.9 [facility] [place] [id number] [place] [address] 46062- 2878 Mar, [facility] [place] [id number] [place] [address] 60473- 6206 Mar, Chest wall pain R07.89 [facility] [place] [id number] [place] [address] 06296- 0746 Mar, [facility] [place] [id number] [address] 2546 Dec, Moderate persistent asthma without complication J45.40 [facility] [place] [address] [facility] [id number] [address] 2546 14 Nov, 2016 [facility] [place] [id number] [address] 14 Aug, 2016 Moderate persistent asthma with acute exacerbation J45.41 and Hypothyroidism, unspecified type E03.9 [facility] [place] [address] [id number], [place] [address] 2546 Aug, Moderate persistent asthma with acute exacerbation J45.41 and Hypothyroidism, unspecified type E03.9 [facility] [place] [id number], [place] [address] 1386 Sep, [facility] [place] [address] [id number], [place] [address] 6[address] Sep, [facility] [place] [address] [id number] [place] [id number] Jul, [facility] [place] [id number], [place] [address] 6436 Jul, [facility] [place] [address] [id number] [place] [id number] Jun, [facility] [place] [address] [id number], [place] [address] 5186 Jun, [facility] [place] [address] [id number] [address] 1336 Jun, [facility] [id number] [address] 6176 Jun, [facility] [place] [address] [id number] [facility] [place] [id number] Jun, [facility] [place] [id number] [address] 6326 Jun, [facility] [place] [address] [id number] [place] [id number] May, [facility] [place] [facility] [address] [id number] [place] [address]- 7056 May, [facility] [place] [address] [id number] [place] [id number] Apr, [facility] [address] [id number] [place] [address]- 0934 Apr, [facility] [place] [address] [id number] [place] [id number] Apr, [facility] [address] [id number] [place] [address]- 1389 Apr, [facility] [place] [address] [id number] [place] [id number] Feb, [facility] [address] [id number] [place] [address] Feb, [facility] [place] [address] [id number] [place] [id number] Feb, [facility] [place] [facility] [address] [id number] [place] [address] Feb, [facility] [place] [address] [id number] [place] [id number] Jan, [facility] [place] [facility] [address] [id number] [place] [address]- 4733 Jan, [facility] [place] [address] [id number] [place] [id number] Dec, [facility] [place] [facility] [address] [id number] [place] [address] 1986 Dec, [facility] [place] [address] [id number] [place] [id number] Dec, [facility] [place] [address] [id number] [place] [id number] Dec, [facility] [place] [facility] [address] [id number] [place] [address]- 3887 Dec, [facility] [address] [id number] [place] [address]- 4351 Dec, [facility] [place] [facility] [address] [id number] [place] [address]- 6055 Nov, [facility] [place] [facility] [address] [id number] [place] [address]- 2864 Nov, [facility] [place] [facility] [address] [id number] [place] [address]- 7268 Nov, [facility] [place] [facility] [address] [id number] [place] [address]- 9078 Nov, [facility] [place] [facility] [address] [id number] [place] [address]- 7613 October, [facility] [place] [facility] [address] [id number] [place] [address]- 1584 October, [facility] [place] [facility] [address] [id number] [place] [address]- 4600 October, [facility] [place] [facility] [address] [id number] [place] [address]- 9455 October, [facility] [place] [facility] [address] [id number] [place] [address]- 1009 Sep, [facility] [place] [facility] [address] [id number] [place] [address]- 0521 Sep, [facility] [place] [facility] [address] [id number] [place] [address]- 8670 Jul, [facility] [place] [facility] [address] [id number] [place] [address]- 0808 Jun, [facility] [place] [facility] [address] [id number] [place] [address]- 0550 Jun, [facility] [place] [facility] [address] [id number] [place] [address]- 6300 Jun, [facility] [address] [id number] [place] [address]- 6346 Jun, [facility] [place] [facility] [address] [id number] [place] [address]- 8104 Jun, [facility] [place] [facility] [address] [id number] [place] [address]- 0676 May, [facility] [place] [facility] [address] [id number] [place] [address]- 6785 May, [facility] [place] [facility] [address] [id number] [place] [address]- 4056 May, [facility] [place] [facility] [address] [id number] [place] [address]- 7249 May, [facility] [place] [facility] [address] [id number] [place] [address]- 1972 Feb, [facility] [place] [facility] [address] [id number] [place] [address]- 3875 Dec, [facility] [place] [facility] [address] [id number] [place] [address]- 2231 Dec, [facility] [place] [facility] [address] [id number], [place] [address]- 5289 Dec, [facility] [place] [facility] [address] [id number], [place] [address]- 8207 Dec, [facility] [place] [facility] [address] [id number], [place] [address]- 5301 Dec, [facility] [place] [facility] [address] [id number] [place] [address]- 1245 Nov, [facility] [place] [facility] [address] [id number], [place] [address]- 2663 Nov, [facility] [place] [facility] [address] [id number], [place] [address]- 5551 Nov, [facility] [place] [facility] [address] [id number], [place] [address]- 6729 Nov, [facility] [address] [id number] [place] [address]- 0866 October, [facility] [address] [id number] [place] [address]- 8574 October, [facility] [address] [id number] [place] [address]- 7056 October, [facility] [address] [id number] [place] [address]- 9064 Aug, [facility] [address] [id number] [place] [address]- 3555 Aug, [facility] [address] [id number] [place] [address]- 7393 Jul, [facility] [address] [facility] [id number] [place] [address]- 0945 Jun, [facility] [address] [id number] [place] [address]- 5499 Jun, [facility] [address] [facility] [id number] [place] [address]- 6440 May, [facility] [address] [id number] [place] [address]- 1351 May, [facility] [address] [id number] [place] [address]- 6573 May, [facility] [address] [id number], [place] [address]- 7641 May, [facility] [address] [id number] [place] [address]- 6842 May, [facility] [address] [id number] [place] [address]- 9148 May, [facility] [address] [facility] [id number] [place] [address]- 4458 May, [facility] [place] [facility] [address] [id number] [place] [address]- 3876 Mar, [facility] [place] [facility] [address] [id number] [place] [address]- 0826 08 Mar, 2012 [facility] [place] [facility] [address] [id number] [place] [address]- 6846 05 Mar, 2012 [facility] [place] [facility] [address] [id number] [place] [address]- 1326 19 Feb, 2011 [facility] [place] [facility] [address] [id number] [place] [address] 2546 08 Feb, 2011 [facility] [place] [facility] [address] [id number] [place] [address]- 4376 05 Feb, 2011 [facility] [place] [facility] [address] [id number] [place] [address]- 7075 05 Feb, 2011 [facility] [place] [facility] [address] [id number] [place] [address]- 6665 04 Feb, 2011 [facility] [place] [facility] [address] [id number] [place] [address]- 7320 Feb, [facility] [place] [facility] [address] [id number] [place] [address]- 7272 Jan, [facility] [place] [facility] [address] [id number] [place] [address]- 2085 Jan, [facility] [place] [facility] [address] [id number] [place] [address]- 2010 Jan, [facility] [place] [facility] [address] [id number] [place] [address] 2547 Jan, [facility] [place] [facility] [address] [id number] [place] [address]- 3226 Jan, [facility] [place] [facility] [address] [id number] [place] [address]- 2548 Jan, [facility] [place] [facility] [address] [id number] [place] [address]- 0966 Jan, [facility] [place] [facility] [address] [id number] [place] [address]- 7226 Jan, [facility] [place] [facility] [address] [id number] [place] [address]- 6790 Jan, [facility] [place] [facility] [address] [id number] [place] [address]- 5970 Jan, [facility] [place] [facility] [address] [id number] [place] [address]- 8506 Jan, [facility] [place] [facility] [address] [id number] [place] [address]- 8806 Jan, [facility] [place] [facility] [address] [id number] [place] [address]- 7840 Dec, [facility] [place] [facility] [address] [id number] [place] [address]- 8315 Dec, [facility] [place] [facility] [address] [id number] [place] [address]- 5681 Dec, [facility] [place] [facility] [address] [id number] [place] [address]- 3539 Dec, [facility] [place] [facility] [address] [id number] [place] [address]- 3274 Dec, [facility] [place] [facility] [address] [id number] [place] [address]- 4319 Dec, [facility] [place] [facility] [address] [id number] [place] [address]- 7285 Nov, [facility] [place] [facility] [address] [id number] [place] [address]- 1430 Nov, [facility] [place] [facility] [address] [id number] [place] [address]- 1325 Nov, [facility] [place] [facility] [address] [id number] [place] [address]- 5659 Nov, [facility] [place] [facility] [address] [id number] [place] [address]- 7552 Nov, [facility] [address] [id number] [place] [address]- 8526 October, [facility] [address] [id number] [place] [address]- 3886 October, [facility] [address] [id number] [place] [address]- 9746 October, [facility] [address] [id number] [place] [address]- 2330 October, [facility] [address] [id number] [place] [address]- 1370 October, [facility] [address] [id number] [place] [address]- 3226 October, [facility] [address] [facility] [id number] [place] [address]- 4660 October, [facility] [address] [id number] [place] [address]- 2190 October, [facility] [address] [id number] [place] [address]- 0506 October, [facility] [address] [facility] [id number] [place] [address]- 4954 October, [facility] [address] [id number] [place] [address]- 6916 October, [facility] [address] [id number] [place] [address]- 5586 October, [facility] [address] [id number] [place] [address]- 5235 Sep, [facility] [address] [facility] [id number] [place] [address]- 9070 Sep, [facility] [address] [id number] [place] [address]- 0716 Sep, IMMUNIZATIONS No Known Immunizations SOCIAL HISTORY Never Assessed REASON FOR VISIT [facility] ER Follow Up - States he had chest pain on left side, shooting down his left leg- Jesi More rn PLAN OF CARE VITAL SIGNS Height 69 in 2017-04-05 Weight 218 lbs 2017-04-05 Temperature 98.7 degrees Fahrenheit 2017-04-05 Heart Rate 88 bpm 2017-04-05 Respiratory Rate 18 2017-04-05 BMI 32.19 kg/m2 2017-04-05 Blood pressure systolic 132 mmHg 2017-04-05 Blood pressure diastolic 78 mmHg 2017-04-05 MEDICATIONS Medication Instructions Dosage Frequency Start Date End Date Duration Status Nebulizer - inhalation every 6 hours as needed as directed Aug, Active Levothyroxine Sodium 50 mcg Orally Once a day 1 tablet on an empty stomach in the morning 24h Mar, 30 day(s) Active ProAir HFA 108 (90 Base) MCG/ACT Inhalation 4 times a day 2 puffs as needed 6h Active Claritin 10 mg Orally Once a day 1 tablet 24h Dec, 2 Jul, 2017 30 day(s) Active Albuterol Sulfate (2.5 MG/3ML) 0.083% Inhalation every 6 hrs, voucher 1st fill 3 ml as needed Apr, Active RESULTS No Results PROCEDURES No Known procedures INSTRUCTIONS MEDICATIONS ADMINISTERED No Known Medications MEDICAL (GENERAL) HISTORY Type Description Date Medical History asthma Medical History hypothyroid Medical History Gerd Surgical History heart cath no interventions Hospitalization History asthma, shortness of breath x4 Hospitalization History chest pain
--- OUTSIDE RECORDS SUMMARY | 2017-11-17 16:16 | XMS REPORT ---
Author Author CHELSY MORALES Organization [facility] Address [address] [place] [address] Care Team Providers Care Inspector Handbag Frames Name Role Phone CHELSY MORALES Unavailable PROBLEMS Type Condition ICD9-CM Code GIC04-VQ Code Onset Dates Condition Status SNOMED Code Problem Chronic nonseasonal allergic rhinitis due to other allergen J30.89 Active 24921239 Problem Hypothyroidism (acquired) E03.9 Active 526167027 Problem Moderate persistent asthma without complication J45.40 Active 148172667 Problem Hypothyroidism, unspecified type E03.9 Active 17259392 ALLERGIES No Information ENCOUNTERS Encounter Location Date Diagnosis [address] [id number] [place] [address]49- [address] May, Severe persistent asthma without complication J45.50 ; Chronic nonseasonal allergic rhinitis due to other allergen J30.89 and Hypothyroidism, unspecified type E03.9 [facility] [id number] [place] [address] 12297- 4014 Apr, [facility] [id number] [place] [address] 69216- 9812 Apr, [facility] [id number] [place] [address] 93993- 1571 Apr, [facility] [id number] [place] [address] 07333- 9321 Mar, Hypothyroidism (acquired) E03.9 [facility] [id number] [place] [address] 55954- 7119 Mar, [facility] [id number] [place] [address] 15360- 9248 Mar, Chest wall pain R07.89 [facility] [id number] [place] [address] 78114- 3801 Mar, [facility] [address] [id number] [address] [address] Dec, Moderate persistent asthma without complication J45.40 [facility] [address] [facility] [id number] [address] 8126 14 Nov, 2016 [facility] [address] [id number] [address] [address] 14 Aug, 2016 Moderate persistent asthma with acute exacerbation J45.41 and Hypothyroidism, unspecified type E03.9 [facility] [address] [id number] [address] Aug, Moderate persistent asthma with acute exacerbation J45.41 and Hypothyroidism, unspecified type E03.9 [facility] [address] [id number] [address] 9560 Sep, [facility] [address] [id number] [address] Sep, [facility] [place] [address] [id number] [place] [id number] Jul, [facility] [address] [id number] [address] 4779 Jul, [facility] [place] [address] [id number] [place] [id number] Jun, [facility] [address] [id number] [address] 1169 Jun, [facility] [address] [id number] [address] 5090 Jun, [facility] [address] [id number] [address] 5406 Jun, [facility] [place] [address] [id number] [place] [id number] Jun, [facility] [address] [id number] 4556 Jun, [facility] [place] [address] [id number] [place] [id number] May, [facility] [place] [facility] [address] [id number] [place] [address]- 1026 May, [facility] [place] [address] [id number] [place] [id number] Apr, [facility] [address] [id number] [place] [address]- 5307 Apr, [facility] [place] [address] [id number] [place] [id number] Apr, [facility] [address] [id number] [place] 2340 Apr, [facility] [place] [address] [id number] [place] [id number] Feb, [facility] [address] [id number] [place] [address]- 2838 Feb, [facility] [place] [address] [id number] [place] [id number] Feb, [facility] [place] [facility] [address] [id number] [place] [address]- 1533 Feb, [facility] [place] [address] [id number] [place] [id number] Jan, [facility] [place] [facility] [address] [id number] [place] [address]- 5198 Jan, [facility] [place] [address] [id number] [place] [address] Dec, [facility] [place] [facility] [address] [id number] [place] [address]- 0176 Dec, [facility] [place] [address] [id number] [place] [id number] Dec, [facility] [place] [address] [id number] [place] [id number] Dec, [facility] [place] [facility] [address] [id number] [place] [address]- 8820 Dec, [facility] [place] [facility] [address] [id number] [place] [address]- 7785 Dec, [facility] [place] [facility] [address] [id number] [place] [address]- 0361 Nov, [facility] [place] [facility] [address] [id number] [place] [address]- 6441 Nov, [facility] [place] [facility] [address] [id number] [place] [address]- 6190 Nov, [facility] [place] [facility] [address] [id number] [place] [address]- 5574 Nov, [facility] [place] [facility] [address] [id number] [place] [address]- 3647 October, [facility] [place] [facility] [address] [id number] [place] [address]- 1237 October, [facility] [place] [facility] [address] [id number] [place] [address]- 2647 October, [facility] [place] [facility] [address] [id number] [place] [address]- 7993 October, [facility] [place] [facility] [address] [id number] [place] [address]- 2206 Sep, [facility] [place] [facility] [address] [id number] [place] [address]- 4476 Sep, [facility] [place] [facility] [address] [id number] [place] [address]- 2764 Jul, [facility] [place] [facility] [address] [id number] [place] [address]- 5413 Jun, [facility] [place] [facility] [address] [id number] [place] [address]- 8670 Jun, [facility] [place] [facility] [address] [id number] [place] [address]- 0811 Jun, [facility] [place] [facility] [address] [id number] [place] [address]- 4896 Jun, [facility] [place] [facility] [address] [id number] [place] [address]- 6070 Jun, [facility] [place] [facility] [address] [id number] [place] [address]- 3709 May, [facility] [place] [facility] [address] [id number] [place] [address]- 8290 May, [facility] [address] [id number] [place] [address]- 9727 May, [facility] [place] [facility] [address] [id number] [place] [address]- 0965 May, [facility] [address] [id number] [place] [address]- 0704 Feb, [facility] [address] [id number] [place] [address]- 9428 Dec, [facility] [place] [facility] [address] [id number] [place] [address]- 3610 Dec, [facility] [place] [facility] [address] [id number] [place] [address]- 0498 Dec, [facility] [place] [facility] [address] [id number] [place] [address]- 5463 Dec, [facility] [place] [facility] [address] [id number] [address]- 0476 Dec, [facility] [place] [facility] [address] [id number] [place] [address]- 8744 Nov, [facility] [place] [facility] [address] [id number] [place] [address]- 4448 Nov, [facility] [place] [facility] [address] [id number] [address]- 4819 Nov, [facility] [place] [facility] [address] [id number] [address]- 8589 Nov, [facility] [address] [id number] [place] [address]- 1076 October, [facility] [address] [id number] [place] [address]- 5806 October, [facility] [address] [facility] [id number] [place] [address]- 7070 October, [facility] [address] [id number] [place] [address]- 9487 Aug, [facility] [address] [id number] [place] [address]- 3100 Aug, [facility] [address] [id number] [place] [address]- 1110 Jul, [facility] [address] [facility] [id number] [place] [address]- 0578 Jun, [facility] [address] [id number] [place] [address]- 1861 Jun, [facility] [address] [facility] [id number] [place] [address]- 7212 May, [facility] [address] [facility] [id number] [place] [address]- 3313 May, [facility] [address] [id number], [place] [address]- 5300 May, [facility] [place] [facility] [address] [id number], [place] [address]- 6146 May, [facility] [place] [facility] [address] [id number] [place] [address] May, [facility] [place] [facility] [address] [id number] [place] [address]- 4563 May, [facility] [address] [facility] [id number] [place] [address]- 6397 May, [facility] [place] [facility] [address] [id number] [place] [address]- 7712 Mar, [facility] [place] [facility] [address] [id number] [place] [address]- 9902 08 Mar, 2012 [facility] [place] [facility] [address] [id number] [place] [address]- 7416 05 Mar, 2012 [facility] [place] [facility] [address] [id number] [place] [address]- 4986 19 Feb, 2011 [facility] [place] [facility] [address] [id number] [place] [address]- 8166 08 Feb, 2011 [facility] [place] [facility] [address] [id number] [place] [address]- 3376 05 Feb, 2011 [facility] [place] [facility] [address] [id number] [place] [address]- 2877 05 Feb, 2011 [facility] [place] [facility] [address] [id number] [place] [address]- 5856 Feb, 2011 [facility] [place] [facility] [address] [id number] [place] [address]- 5786 Feb, [facility] [place] [facility] [address] [id number] [place] [address]- 1682 Jan, [facility] [place] [facility] [address] [id number] [place] [address]- 6385 Jan, [facility] [place] [facility] [address] [id number] [place] [address]- 8788 Jan, [facility] [place] [facility] [address] [id number] [place] [address]- 2540 Jan, [facility] [place] [facility] [address] [id number] [place] [address]- 5876 Jan, [facility] [place] [facility] [address] [id number] [place] [address]- 1291 Jan, [facility] [place] [facility] [address] [id number] [place] [address]- 0293 Jan, [facility] [place] [facility] [address] [id number] [place] [address]- 5145 Jan, [facility] [place] [facility] [address] [id number] [place] [address]- 9970 Jan, [facility] [place] [facility] [address] [id number] [place] [address]- 2572 Jan, [facility] [place] [facility] [address] [id number] [place] [address]- 8090 Jan, [facility] [place] [facility] [address] [id number] [place] [address]- 8333 Jan, [facility] [place] [facility] [address] [id number] [place] [address]- 7916 Dec, [facility] [place] [facility] [address] [id number] [place] [address]- 0132 Dec, [facility] [place] [facility] [address] [id number] [place] [address]- 9063 Dec, [facility] [place] [facility] [address] [id number] [place] [address]- 9360 Dec, [facility] [place] [facility] [address] [id number] [place] [address]- 6115 Dec, [facility] [place] [facility] [address] [id number] [place] [address]- 2705 Dec, [facility] [place] [facility] [address] [id number] [place] [address]- 6232 Nov, [facility] [place] [facility] [address] [id number] [place] [address]- 0209 Nov, [facility] [place] [facility] [address] [id number] [place] [address]- 3206 Nov, [facility] [place] [facility] [address] [id number] [place] [address]- 0808 Nov, [facility] [place] [facility] [address] [id number] [place] [address]- 1839 Nov, [facility] [address] [id number] [place] [address]- 6156 October, [facility] [address] [id number] [place] [address]- 5896 October, [facility] [address] [facility] [id number] [place] [address]- 3786 October, [facility] [address] [id number] [place] [address]- 0685 October, [facility] [address] [id number] [place] [address]- 4267 October, [facility] [address] [id number] [place] [address]- 1446 October, [facility] [address] [facility] [id number] [place] [address]- 1541 October, [facility] [address] [id number] [place] [address]- 8119 October, [facility] [address] [id number] [place] [address]- 1866 October, [facility] [address] [facility] [id number] [place] [address]- 0986 October, [facility] [address] [facility] [id number] [place] [address]- 3646 October, [facility] [address] [id number] [place] [address]- 7986 October, [facility] [address] [id number] [place] [address]- 7679 Sep, [facility] [address] [facility] [id number] [place] [address]- 1612 Sep, [facility] [address] [facility] [id number] [place] [address]- 3047 Sep, IMMUNIZATIONS No Known Immunizations SOCIAL HISTORY Never Assessed REASON FOR VISIT triage - CBowlovellR PLAN OF CARE VITAL SIGNS MEDICATIONS Unknown Medications RESULTS No Results PROCEDURES No Known procedures INSTRUCTIONS MEDICATIONS ADMINISTERED No Known Medications MEDICAL (GENERAL) HISTORY Type Description Date Medical History asthma Medical History hypothyroid Medical History Gerd Surgical History heart cath no interventions Hospitalization History asthma, shortness of breath x4 Hospitalization History chest pain
--- NOTE | 2017-11-17 16:19 | ED Dyspnea ---
General Stated Complaint: COPD,"NEEDS BREATHING TREATMENT" Source of Information: Patient Exam Limitations: No Limitations History of Present Illness Date Seen by Provider: Nov 17, 2017 Time Seen by Provider: 16:17 Initial Comments To ER with reports of shortness of breath. As a history of asthma. He is currently on prednisone prescribed by the [facility] on Sunday. He states he does not have an inhaler because he cannot afford it. Timing/Duration: 1 Week, Increasing Severity: Moderate Allergies and Home Medications Allergies Coded Allergies: No Known Drug Allergies (Unverified , 05/04/11) Home Medications Albuterol Sulfate 2.5 Mg/3 Ml Vial.neb, 2.5 MG IH Q4H PRN for WHEEZING Prescribed by: KEIRA PENA on 07/27/17 1448 Levothyroxine Sodium 50 Mcg Tablet, 50 MCG PO DAILY, (Reported) Pramoxine HCl 15 Gm Foam, 1 APPLIC TP QID Prescribed by: EARNESTINE WILKERSON on 06/03/17 2315 Prednisone 20 Mg Tab, 40 MG PO DAILY Prescribed by: KEIRA PENA on 07/27/17 1448 Patient Home Medication List Home Medication List Reviewed: Yes Constitutional: see HPI; No chills, No fever EENTM: see HPI Respiratory: see HPI, cough, short of breath, wheezing Cardiovascular: no symptoms reported Genitourinary: no symptoms reported Musculoskeletal: no symptoms reported Skin: no symptoms reported Psychiatric/Neurological: No Symptoms Reported Endocrine: No Symptoms Reported Past Cofpwrr-Lrgnwz-Fgneyk Hx Patient Social History 2nd Hand Smoke Exposure: No Recent Foreign Travel: No Contact w/Someone Who Travel: No Recent Hopitalizations: Yes Past Medical History Surgeries: Yes (HEART CATH 2011) Respiratory: Yes (has rescue inhaler is not aware of having asthma) Cardiac: No Neurological: No Reproductive Disorders: No Genitourinary: No Gastrointestinal: No Musculoskeletal: No Endocrine: Yes Hypothyroidsim HEENT: No Cancer: No Psychosocial: No Anxiety Blood Disorders: No Physical Exam Vital Signs Capillary Refill : General Appearance: No Apparent Distress, WD/WN HEENT: PERRL/EOMI, TMs Normal Neck: Full Range of Motion, Normal Inspection Respiratory: No Accessory Muscle Use, No Respiratory Distress, Decreased Breath Sounds, Wheezing Cardiovascular: Regular Rate, Rhythm, Normal Peripheral Pulses Gastrointestinal: Soft Neurologic/Psychiatric: Alert, Oriented x3 Skin: Normal Color, Warm/Dry Progress/Results/Core Measures Results/Orders My Orders Orders - KEIRA PENA APRN Albuterol/Ipra Inhalation Soln (Duoneb I (11/17/17 16:15) Svn Small Volume Nebulizer (11/17/17 16:11) Chest Pa/Lat (2 View) (11/17/17 16:11) Rx-Albuterol Inhaler (Rx-Proair) (11/17/17 16:16) Albuterol Pre-Mix Nebs (Rt) (Proventil (11/17/17 21:00) Svn Small Volume Nebulizer (11/17/17 16:16) Departure Impression Primary Impression: Reactive airway disease with acute exacerbation Disposition: 01 HOME, SELF-CARE Condition: Improved Departure-Patient Inst. Decision time for Depature: 16:20 Referrals: NO,LOCAL PHYSICIAN (PCP/Family) Primary Care Physician Patient Instructions: NO INSTRUCTIONS GIVEN Add. Discharge Instructions: 1. Continue to take your prednisone 2. Return to ER for any concerns KEIRA PENA APRN Nov 17, 2017 16:18
[2017-11-17] MEDS ORDERED: RT-ALBUTEROL SULF 2.5 MG/3 ML PRE-MIX VIAL ONE (16:30)
[2017-11-17] MEDS ORDERED: RT-ALBUTEROL SULF 2.5 MG/3 ML PRE-MIX VIAL INH SCH ×2 (16:30→21:00)
--- NOTE | 2017-11-17 17:51 | Diagnostic Imaging Report ---
INDICATION: Shortness of air. TECHNIQUE: Two view chest 5:50 PM CORRELATION STUDY: 07/27/2017 FINDINGS: The heart size, mediastinal configuration and pulmonary vasculature are within normal limits. The lungs are clear with no consolidating infiltrate. There is no significant pleural effusion or pneumothorax. Slight tenting of the medial right diaphragm. Visualized osseous structures are unremarkable. IMPRESSION: 1. No radiographic evidence for acute abnormality of the chest. There is, however noted slight tenting of the medial right diaphragm. Etiology is indeterminate. This, however is changed from prior study. Recommend short-term followup imaging approximately one month for reassessment. Dictated by: Dictated on workstation # [id number]
[2017-11-17 17:53] VITALS: BP 129/2
== END 2017-11-17 17:53 | disposition home or self-care (01) ==
LOC: EDUNIT# 16:09 → ER 16:10
DX: J45.901 Unspecified asthma with (acute) exacerbation (principal); F41.9 Anxiety disorder, unspecified; E03.9 Hypothyroidism, unspecified; Z98.890 Other specified postprocedural states; Z79.52 Long term (current) use of systemic steroids
CPT/HCPCS: 71046; 94640

== ENCOUNTER 2018-04-02 20:24 | Emergency (ER) | payer SELFPAY ==
[~2018-04-02] VITALS: Ht 175.3 cm; Wt 98.9 kg
--- OUTSIDE RECORDS SUMMARY | 2018-04-02 20:59 | XMS REPORT ---
Author Author ALEA COOK [facility] Address [address] [place] [address] Care Team Providers Care Hotel Clerk Name Role Phone ALEA COOK Unavailable PROBLEMS Type Condition ICD9-CM Code PTR77-BR Code Onset Dates Condition Status SNOMED Code Problem Hypothyroidism, unspecified type E03.9 Active 06437061 Problem Seasonal allergic rhinitis due to pollen J30.1 Active 71247188 Problem Moderate persistent asthma without complication J45.40 Active 571452651 Problem Essential hypertension I10 Active 94775604 Problem Hypothyroidism (acquired) E03.9 Active [id number] ALLERGIES No Information ENCOUNTERS Encounter Location Date Diagnosis [facility] [address] [address] Mar, [facility] [address] [address]- [address] Mar, Hypothyroidism, unspecified type E03.9 [facility] [id number] [place] [address]- 8664 Mar, Seasonal allergic rhinitis due to pollen J30.1 ; Moderate persistent asthma without complication J45.40 and Essential hypertension I10 [facility] [id number] [place] [address] 15827- 4539 Feb, [facility] [id number] [place] [address] 05181- 6371 Jan, Moderate persistent asthma with acute exacerbation J45.41 [facility] [id number] [place] [address] 46111- 5210 Jan, [facility] [id number] [place] [address]309- 2007 May, Severe persistent asthma without complication J45.50 ; Chronic nonseasonal allergic rhinitis due to other allergen J30.89 and Hypothyroidism, unspecified type E03.9 [facility] [id number] [place] [address] 71016- 5138 Apr, [facility] [id number] [place] [address] 28136- 2424 Apr, [facility] [address] [address]- [address] Apr, [facility] [address] 38885- 6488 Mar, Hypothyroidism (acquired) E03.9 [facility] [address] 64952- 3142 Mar, [facility] [id number] [place] [address] 74349- 4467 Mar, Chest wall pain R07.89 [facility] [id number] [place] [address] 10767- 4370 Mar, [facility] [id number] [place] [address] 45993- 1982 Dec, Moderate persistent asthma without complication J45.40 [facility] [id number] [place] [address] 53333- 0395 Nov, [facility] [id number] [place] [address] 30009- 0352 Aug, Moderate persistent asthma with acute exacerbation J45.41 and Hypothyroidism, unspecified type E03.9 [facility] [id number] [place] [address] 68753- 1571 Aug, Moderate persistent asthma with acute exacerbation J45.41 and Hypothyroidism, unspecified type E03.9 [facility] [id number] [place] [address] 96612- 8771 Sep, [facility] [address] [address]- 8672 Sep, [facility] [address] [place] [address] Jul, [facility] [address] [id number] [address] Jul, [facility] [address] [place] [address] Jun, [facility] [address] [id number] [address] Jun, [facility] [address] [id number], [place] [address] 2944 Jun, [facility] [address] [id number], [place] [address] 4579 Jun, [facility] [address] [place] [address] Jun, [facility] [address] [address] 8626 Jun, [facility] [address] [place] [address] May, [facility] [address] [id number] [address] 1314 May, [facility] [address] [place] [address] Apr, [facility] [address] [id number], [place] [address]- 1781 Apr, [facility] [address] [place] [address] Apr, [facility] [address] [id number], [place] [address] 6232 Apr, [facility] [address] [place] [address] Feb, [facility] [address] [id number], [place] [address] 5525 Feb, [facility] [address] [place] [address] Feb, [facility] [address] [facility] [id number] [place] [address]246 Feb, [facility] [address] [place] [address] Jan, [facility] [address] [facility] [id number] [place] [address]- 5103 Jan, [facility] [address] [place] [address] Dec, [facility] [address] [facility] [id number] [place] [address]- 6658 Dec, [facility] [address] [place] [address] Dec, [facility] [address] [place] [address] Dec, [facility] [address] [id number] [place] [address] 5[address] Dec, [facility] [place] [facility] [address] [facility] [id number] [place] [address]- 8988 Dec, [facility] [place] [facility] [address] [id number] [place] [address]- 5961 Nov, [facility] [place] [facility] [address] [facility] [id number] [place] [address]- 4929 Nov, [facility] [place] [facility] [address] [id number] [place] [address]- 1476 Nov, [facility] [place] [facility] [address] [facility] [id number] [place] [address]- 5146 Nov, [facility] [place] [facility] [address] [facility] [id number] [place] [address]- 9459 October, [facility] [place] [facility] [address] [facility] [id number] [place] [address]- 5906 October, [facility] [place] [facility] [address] [facility] [id number] [place] [address]- 6645 October, [facility] [place] [facility] [address] [id number] [place] [address]- 6362 October, [facility] [place] [facility] [address] [id number] [place] [address]- 9388 Sep, [facility] [place] [facility] [address] [id number] [place] [address]- 0021 Sep, [facility] [place] [facility] [address] [id number] [place] [address]- 2957 Jul, [facility] [place] [facility] [address] [id number] [place] [address]- 8388 Jun, [facility] [place] [facility] [address] [id number] [place] [address]- 6762 Jun, [facility] [place] [facility] [address] [id number] [place] [address]- 9701 Jun, [facility] [place] [facility] [address] [id number] [place] [address]- 7623 Jun, [facility] [place] [facility] [address] [id number] [place] [address]- 6421 Jun, [facility] [place] [facility] [address] [id number], [place] [address]- 8002 May, [facility] [place] [facility] [address] [id number], [place] [address]- 4202 May, [facility] [place] [facility] [address] [id number], [place] [address]- 0265 May, [facility] [place] [facility] [address] [id number] [place] [address]- 9934 May, [facility] [place] [facility] [address] [id number], [place] [address]- 6178 Feb, [facility] [place] [facility] [address] [id number], [place] [address]- 1880 Dec, [facility] [place] [facility] [address] [id number], [place] [address]- 6683 Dec, [facility] [address] [id number] [place] [address]- 7549 Dec, [facility] [place] [facility] [address] [id number] [place] [address]- 0358 Dec, [facility] [place] [facility] [address] [id number] [place] [address]- 7773 Dec, [facility] [place] [facility] [address] [id number] [place] [address]- 4024 Nov, [facility] [address] [id number] [place] [address]- 9226 Nov, [facility] [place] [facility] [address] [id number] [place] [address]- 0598 Nov, [facility] [address] [id number] [place] [address]- 1438 Nov, [facility] [place] [facility] [address] [id number] [place] [address]- 8931 October, [facility] [address] [id number] [place] [address]- 9453 October, [facility] [place] [facility] [address] [id number] [place] [address]- 7209 October, [facility] [place] [facility] [address] [id number] [place] [address]- 7850 Aug, [facility] [place] [facility] [address] [id number] [place] [address]- 5754 Aug, [facility] [place] [facility] [address] [id number] [place] [address]- 7855 Jul, [facility] [place] [facility] [address] [id number] [place] [address]- 7531 Jun, [facility] [place] [facility] [address] [id number] [place] [address]- 8827 Jun, [facility] [place] [facility] [address] [id number] [place] [address]- 7886 14 May, 2012 [facility] [place] [facility] [address] [id number] [place] [address]- 3666 14 May, 2012 [facility] [place] [facility] [address] [id number] [place] [address]- 4176 05 May, 2012 [facility] [place] [facility] [address] [id number] [place] [address]- 8056 04 May, 2012 [facility] [place] [facility] [address] [id number] [place] [address]- 9151 04 May, 2012 [facility] [place] [facility] [address] [id number] [place] [address]- 0141 May, [facility] [place] [facility] [address] [id number] [place] [address]- 0616 May, [facility] [place] [facility] [address] [id number] [place] [address]- 1241 Mar, [facility] [place] [facility] [address] [id number] [place] [address]- 1959 Mar, [facility] [place] [facility] [address] [id number] [place] [address]- 3783 Mar, [facility] [place] [facility] [address] [id number] [place] [address]- 8502 19 Feb, 2011 [facility] [place] [facility] [address] [id number] [place] [address]- 8356 08 Sep, 2011 [facility] [place] [facility] [address] [id number] [place] [address] 2546 05 Sep, 2011 [facility] [place] [facility] [address] [id number] [place] [address] 2546 05 Sep, 2011 [facility] [place] [facility] [address] [id number] [place] [address]- 6406 04 Sep, 2011 [facility] [place] [facility] [address] [id number] [place] [address]- 9850 Feb, [facility] [place] [facility] [address] [id number] [place] [address]- 5431 Jan, [facility] [place] [facility] [address] [id number] [place] [address]- 9420 Jan, [facility] [place] [facility] [address] [id number] [place] [address]- 3682 Jan, [facility] [place] [facility] [address] [id number] [place] [address]- 0206 Jan, [facility] [place] [facility] [address] [id number] [place] [address]- 5887 Jan, [facility] [place] [facility] [address] [id number] [place] [address]- 1766 Jan, [facility] [place] [facility] [address] [id number] [place] [address]- 7231 Jan, [facility] [place] [facility] [address] [id number] [place] [address]- 7315 Jan, [facility] [place] [facility] [address] [id number] [place] [address]- 5547 Jan, [facility] [place] [facility] [address] [id number] [place] [address]- 0850 Jan, [facility] [place] [facility] [address] [id number] [place] [address]- 4364 Jan, [facility] [place] [facility] [address] [id number] [place] [address]- 0032 Jan, [facility] [place] [facility] [address] [id number] [place] [address]- 8945 Dec, [facility] [place] [facility] [address] [id number] [place] [address]- 4971 Dec, [facility] [place] [facility] [address] [id number] [place] [address]- 5244 Dec, [facility] [place] [facility] [address] [id number] [place] [address]- 7505 Dec, [facility] [place] [facility] [address] [id number] [place] [address]- 5904 Dec, [facility] [place] [facility] [address] [id number] [place] [address]- 5296 Dec, [facility] [place] [facility] [address] [id number] [place] [address]- 3579 Nov, [facility] [place] [facility] [address] [id number] [place] [address]- 4662 Nov, [facility] [place] [facility] [address] [id number] [place] [address]- 4600 Nov, [facility] [place] [facility] [address] [id number] [place] [address]- 7370 Nov, [facility] [place] [facility] [address] [id number] [place] [address]- 4051 Nov, [facility] [place] [facility] [address] [id number] [place] [address]- 3093 October, [facility] [place] [facility] [address] [id number] [place] [address]- 3167 October, [facility] [place] [facility] [address] [id number] [place] [address]- 6368 October, [facility] [place] [facility] [address] [id number] [place] [address]- 9071 October, [facility] [place] [facility] [address] [id number] [place] [address]- 6683 October, [facility] [place] [facility] [address] [id number] [place] [address]- 5743 October, [facility] [place] [facility] [address] [id number] [place] [address]- 5689 October, [facility] [place] [facility] [address] [id number] [place] [address]- 2374 October, [facility] [address] [id number], [place] [address]- 7544 October, [facility] [address], [place] [address]- 6221 October, [facility] [address], [place] [address]- 0151 October, [facility] [id number] [place] [address] 22630- 4140 October, [facility] [address], [place] [address]- 5376 Sep, [facility] [address], [place] [address]- 0757 Sep, [facility] [address] [id number], [place] [address]- 5113 Sep, IMMUNIZATIONS No Known Immunizations SOCIAL HISTORY Never Assessed REASON FOR VISIT lab order PLAN OF CARE VITAL SIGNS MEDICATIONS Unknown Medications RESULTS No Results PROCEDURES No Known procedures INSTRUCTIONS MEDICATIONS ADMINISTERED No Known Medications MEDICAL (GENERAL) HISTORY Type Description Date Medical History asthma Medical History hypothyroid Medical History Gerd Medical History COPD, severe Medical History GERARDO, uses CPAP Surgical History heart cath no interventions Hospitalization History asthma, shortness of breath x4 Hospitalization History chest pain
--- OUTSIDE RECORDS SUMMARY | 2018-04-02 20:59 | XMS REPORT ---
Author Author CHELSY MORALES Organization [facility] Address [address] [place] [address] Care Team Providers Care Testing Engineer Name Role Phone CHELSY MORALES Unavailable PROBLEMS Type Condition ICD9-CM Code WIP74-ZA Code Onset Dates Condition Status SNOMED Code Problem Essential hypertension I10 Active 54407496 Problem Seasonal allergic rhinitis due to pollen J30.1 Active 76038667 Problem Hypothyroidism (acquired) E03.9 Active 268420845 Problem Moderate persistent asthma without complication J45.40 Active [id number] ALLERGIES No Information ENCOUNTERS Encounter Location Date Diagnosis [place] [id number] [place] [address] 00843- 4588 Mar, [place] [address] [address]- [address]494 Mar, [place] [id number] [place] [address] 34243- 3869 Mar, Seasonal allergic rhinitis due to pollen J30.1 ; Moderate persistent asthma without complication J45.40 and Essential hypertension I10 [place] [id number] [place] [address] 51926- 2298 Feb, [place] [address] 81961- 5586 Jan, Moderate persistent asthma with acute exacerbation J45.41 [place] [id number] [place] [address] 44403- 3021 Jan, [place] [address] [address]- 5022 May, Severe persistent asthma without complication J45.50 ; Chronic nonseasonal allergic rhinitis due to other allergen J30.89 and Hypothyroidism, unspecified type E03.9 [place] [id number] [place] [address] 15538- 4925 Apr, [facility] [id number] [place] [address] 79248- 0662 Apr, [facility] [id number] [place] [address] 84276- 4608 Apr, [facility] [id number] [place] [address] 69334- 5106 Mar, Hypothyroidism (acquired) E03.9 [facility] [id number] [place] [address] 29612- 6401 Mar, [facility] [id number] [place] [address] 99760- 2135 Mar, Chest wall pain R07.89 [facility] [id number] [place] [address] 25653- 0328 Mar, [facility] [id number] [place] [address] 35066- 9719 Dec, Moderate persistent asthma without complication J45.40 [facility] [id number] [place] [address] 87710- 9471 Nov, [facility] [id number] [place] [address] 27381- 9370 Aug, Moderate persistent asthma with acute exacerbation J45.41 and Hypothyroidism, unspecified type E03.9 [facility] [address] [place] [address] 35860- 0285 Aug, Moderate persistent asthma with acute exacerbation J45.41 and Hypothyroidism, unspecified type E03.9 [facility] [id number] [place] [address] 92115- 7434 Sep, [facility] [id number] [place] [address] 15018- 5556 Sep, [facility] [address] [place] [address] Jul, [facility] [id number] [address] 7751 Jul, [facility] [address] [place] [address] Jun, [facility] [id number] [address] 8988 Jun, [facility] [id number] [address] 1868 Jun, [facility] [address] [place] [address] 5590 Jun, [facility] [address] [place] [address] Jun, [facility] [address] [address]- 1034 Jun, [facility] [address] [place] [address] May, [facility] [address] [place] [address] 1973 May, [facility] [address] [place] [address] Apr, [facility] [id number] [address] 6988 Apr, [facility] [address] [place] [address] Apr, [facility] [id number] [address] 0472 Apr, [facility] [address] [place] [address] Feb, [facility] [address] [place] [address]- 5074 Feb, [facility] [address] [place] [address] Feb, [facility] [address] [place] [address] 9284 Feb, [facility] [address] [facility] [place] [address] Jan, [facility] [address] [id number] [place] [address] 0433 Jan, [facility] [address] [facility] [place] [address] Dec, [facility] [address] [facility] [id number] [place] [address]- 4473 Dec, [facility] [address] [facility] [place] [address] Dec, [facility] [address] [facility] [place] [address] Dec, [facility] [address] [facility] [id number] [place] [address]- 7450 Dec, [facility] [address] [facility] [id number] [place] [address]- 2615 Dec, [facility] [address] [facility] [id number] [place] [address]- 4701 Nov, [facility] [address] [id number] [place] [address]- 3061 Nov, [facility] [address] [facility] [id number] [place] [address]- 4159 Nov, [facility] [address] [id number] [place] [address]- 4066 Nov, [facility] [place] [facility] [address] [id number] [place] [address]- 7409 October, [facility] [address] [id number] [place]26 October, [facility] [place] [facility] [address] [facility] [id number] [place] [address]- 3583 October, [facility] [address] [id number] [place] [address]- 5493 October, [facility] [place] [facility] [address] [id number] [place] [address]- 3167 Sep, [facility] [place] [facility] [address] [id number] [place] [address]- 7038 Sep, [facility] [place] [facility] [address] [id number] [place] [address]- 0137 Jul, [facility] [place] [facility] [address] [id number] [place] [address]- 2447 Jun, [facility] [place] [facility] [address] [id number] [place] [address]- 7589 Jun, [facility] [place] [facility] [address] [id number] [place] [address]- 8878 Jun, [facility] [place] [facility] [address] [id number] [place] [address]- 0741 Jun, [facility] [place] [facility] [address] [id number] [place] [address]- 5912 Jun, [facility] [place] [facility] [address] [id number] [place] [address]- 2129 May, [facility] [place] [facility] [address] [id number] [place] [address]- 3714 May, [facility] [place] [facility] [address] [id number], [place] [address]- 9332 May, [facility] [place] [facility] [address] [id number], [place] [address]- 2767 May, [facility] [place] [facility] [address] [id number] [place] [address]- 4520 Feb, [facility] [place] [facility] [address] [id number] [place] [address]- 8045 Dec, [facility] [place] [facility] [address] [id number], [place] [address]- 5151 Dec, [facility] [place] [facility] [address] [id number], [place] [address]- 4398 Dec, [facility] [address] [id number] [place] [address]- 3949 Dec, [facility] [place] [facility] [address] [id number] [place] [address]- 7126 Dec, [facility] [address] [id number] [place] [address]- 0842 Nov, [facility] [place] [facility] [address] [id number] [place] [address]- 5106 Nov, [facility] [address] [id number] [place] [address]- 0796 Nov, [facility] [address] [id number] [place] [address]- 1934 Nov, [facility] [address] [id number] [place] [address]- 4948 October, [facility] [address] [id number] [place] [address]- 1325 October, [facility] [address] [id number] [place] [address]- 5342 October, [facility] [address] [id number] [place] [address]- 3190 Aug, [facility] [address] [id number] [place] [address]- 7583 Aug, [facility] [place] [facility] [address] [id number] [place] [address]- 0197 Jul, [facility] [place] [facility] [address] [id number] [place] [address]- 0847 Jun, [facility] [place] [facility] [address] [id number] [place] [address]- 6154 Jun, [facility] [place] [facility] [address] [id number] [place] [address]- 4648 May, [facility] [place] [facility] [address] [id number] [place] [address]- 9206 14 May, 2012 [facility] [place] [facility] [address] [id number] [place] [address]- 2636 05 May, 2012 [facility] [place] [facility] [address] [id number] [place] [address]- 5596 04 May, 2012 [facility] [place] [facility] [address] [id number] [place] [address]- 9516 04 May, 2012 [facility] [place] [facility] [address] [id number] [place] [address]- 7654 May, [facility] [place] [facility] [address] [id number] [place] [address]- 1156 May, [facility] [place] [facility] [address] [id number] [place] [address]- 0020 Mar, [facility] [place] [facility] [address] [id number] [place] [address]- 1674 Mar, [facility] [place] [facility] [address] [id number] [place] [address]- 2388 Mar, [facility] [place] [facility] [address] [id number] [place] [address]- 3284 Feb, 2011 [facility] [place] [facility] [address] [id number] [place] [address]- 9966 08 Sep, 2011 [facility] [place] [facility] [address] [id number] [place] [address] 2546 05 Sep, 2011 [facility] [place] [facility] [address] [id number] [place] [address] 2546 05 Sep, 2011 [facility] [place] [facility] [address] [id number] [place] [address] 2546 Feb, 2011 [facility] [place] [facility] [address] [id number] [place] [address]- 2466 02 Feb, 2011 [facility] [place] [facility] [address] [id number] [place] [address]- 2806 Jan, [facility] [place] [facility] [address] [id number] [place] [address]- 9552 Jan, [facility] [place] [facility] [address] [id number] [place] [address]- 5117 Jan, [facility] [place] [facility] [address] [id number] [place] [address]- 3320 Jan, [facility] [place] [facility] [address] [id number] [place] [address]- 4871 Jan, [facility] [place] [facility] [address] [id number] [place] [address]- 8659 Jan, [facility] [place] [facility] [address] [id number] [place] [address]- 9957 Jan, [facility] [place] [facility] [address] [id number] [place] [address]- 9714 Jan, [facility] [place] [facility] [address] [id number] [place] [address]- 2609 Jan, [facility] [place] [facility] [address] [id number] [place] [address]- 1857 Jan, [facility] [place] [facility] [address] [id number] [place] [address]- 9291 Jan, [facility] [place] [facility] [address] [id number] [place] [address]- 9114 Jan, [facility] [place] [facility] [address] [id number] [place] [address]- 0398 Dec, [facility] [place] [facility] [address] [id number] [place] [address]- 0708 Dec, [facility] [place] [facility] [address] [id number] [place] [address]- 7963 Dec, [facility] [place] [facility] [address] [id number] [place] [address]- 5695 Dec, [facility] [place] [facility] [address] [id number] [place] [address]- 4253 Dec, [facility] [place] [facility] [address] [id number] [place] [address]- 8120 Dec, [facility] [place] [facility] [address] [id number] [place] [address]- 0658 Nov, [facility] [place] [facility] [address] [id number] [place] [address]- 7419 Nov, [facility] [place] [facility] [address] [id number] [place] [address]- 3543 Nov, [facility] [place] [facility] [address] [id number] [place] [address]- 4083 Nov, [facility] [place] [facility] [address] [id number] [place] [address]- 8734 Nov, [facility] [address] [id number] [place] [address]- 3384 October, [facility] [place] [facility] [address] [id number] [place] [address]- 5316 October, [facility] [place] [facility] [address] [id number] [place] [address]- 1846 October, [facility] [place] [facility] [address] [id number] [place] [address]- 4551 October, [facility] [place] [facility] [address] [id number] [place] [address]- 4065 October, [facility] [place] [facility] [address] [id number] [place] [address]- 8933 October, [facility] [place] [facility] [address] [id number] [place] [address]- 7684 October, [facility] [place] [facility] [address] [id number] [place] [address]- 7066 October, [facility] [place] [facility] [address] [id number] [place] [address]- 0739 October, [facility] [id number], [place] [address]- 5924 October, [facility] [address] [place] [address]- 1133 October, [facility] [address], [place] [address]- 3240 October, [facility] [id number] [place] [address] 74918- 4134 Sep, [facility] [address], [place] [address]- 3259 Sep, [facility] [address] [place] [address]- 4075 Sep, IMMUNIZATIONS No Known Immunizations SOCIAL HISTORY Never Assessed REASON FOR VISIT Care mgmt outreach PLAN OF CARE VITAL SIGNS MEDICATIONS Unknown [...]
--- OUTSIDE RECORDS SUMMARY | 2018-04-02 21:00 | XMS REPORT ---
Author Author ALEA COOK [facility] Address [address] [place] [address] Care Team Providers Care Costume Cutter Name Role Phone ALEA COOK Unavailable PROBLEMS Type Condition ICD9-CM Code EOJ26-IS Code Onset Dates Condition Status SNOMED Code Problem Essential hypertension I10 Active 86402606 Problem Seasonal allergic rhinitis due to pollen J30.1 Active 24676395 Problem Hypothyroidism (acquired) E03.9 Active 494607643 Problem Moderate persistent asthma without complication J45.40 Active 778329054 ALLERGIES No Known Allergies ENCOUNTERS Encounter Location Date Diagnosis [place] [id number] [address] Mar, [facility] [address] [place] [id number] [place] [address]- [address] Mar, [facility] [address] [address] Mar, Seasonal allergic rhinitis due to pollen J30.1 ; Moderate persistent asthma without complication J45.40 and Essential hypertension I10 [place] [address] [place] [id number] [place] [address]- 6[address] Feb, [facility] [address] [address] Jan, Moderate persistent asthma with acute exacerbation J45.41 [facility] [address] [address]- [address] Jan, [place] [address] [place] [id number] [place] [address]- 9428 May, Severe persistent asthma without complication J45.50 ; Chronic nonseasonal allergic rhinitis due to other allergen J30.89 and Hypothyroidism, unspecified type E03.9 [facility] [address] [address] Apr, [facility] [address] [place] [address] [id number] [place] [address]- 2753 Apr, [facility] [address] [place] [id number] [place] [address] 11656- 1720 Apr, [facility] [address] [place] [address] [id number] [place] [address] 77[address]- 1071 Mar, Hypothyroidism (acquired) E03.9 [facility] [address] [place] [id number] [place] [address] 8[address]39- 7074 Mar, [facility] [address] [place] [id number] [place] [address] 09694- 1381 Mar, Chest wall pain R07.89 [facility] [address] [place] [id number] [place] [address] 7[address]42- 0924 Mar, [facility] [id number] [place] [address] 80325- 5318 Dec, Moderate persistent asthma without complication J45.40 [facility] [id number] [place] [address] 32065- 5491 Nov, [facility] [address] [place] [id number] [place] [address] 51885- 6956 14 Aug, 2016 Moderate persistent asthma with acute exacerbation J45.41 and Hypothyroidism, unspecified type E03.9 [facility] [address] [address] Aug, Moderate persistent asthma with acute exacerbation J45.41 and Hypothyroidism, unspecified type E03.9 [facility] [address] [place] [address] 00062- 9571 Sep, [facility] [id number] [place] [address] 51272- 1787 Sep, [facility] [address] [place] [address] Jul, [facility] [address] [place] [id number] [address] Jul, [facility] [address] [place] [address] Jun, [facility] [address] [id number] [address] 57[address] Jun, [facility] [address] [address] 6[address] Jun, [facility] [address] [address] [id number] [address] 9401 Jun, [facility] [address] [place] [address] Jun, [facility] [address] [address] Jun, [facility] [address] [place] [address] May, [facility] [address] [address] May, [facility] [address] [place] [address] Apr, [facility] [address] [address] 8936 Apr, [facility] [address] [place] [address] Apr, [facility] [address] [place] [id number] [address] 8047 Apr, [facility] [address] [place] [address] Feb, [facility] [address] [address] Feb, [facility] [address] [place] [address] Feb, [facility] [address] [address] Feb, [facility] [address] [facility] [place] [address] Jan, [facility] [address] [facility] [id number], [place] [address] Jan, [facility] [address] [facility] [place] [address] Dec, [facility] [address] [facility] [id number] [address] 8146 Dec, [facility] [address] [facility] [place] [address] Dec, [facility] [address] [facility] [place] [address] Dec, [facility] [address] [id number] [address] 6[address] Dec, [facility] [place] [facility] [id number] [address] Dec, [facility] [place] [facility] [id number] [address] 6410 Nov, [facility] [place] [facility] [address] [facility] [id number], [place] [address] 268[address] Nov, [facility] [place] [facility] [address] [address] [id number] [address]- 0265 Nov, [facility] [place] [facility] [address] [facility] [id number][place] [address]- 2462 Nov, [facility] [place] [facility] [address] [facility] [id number] [place] [address]- 9159 October, [facility] [place] [facility] [address] [facility] [id number] [place] [address]- 5224 October, [facility] [place] [facility] [address] [facility] [id number] [address]- 68[address] October, [facility] [place] [facility] [address] [facility] [id number] [address]- 2546 October, [facility] [address] [id number] [place] [address]- 3976 Sep, [facility] [place] [facility] [address] [id number] [place] [address]- 8316 Sep, [facility] [place] [facility] [address] [id number] [place] [address]- 7507 Jul, [facility] [place] [facility] [address] [id number] [place] [address]- 3942 Jun, [facility] [place] [facility] [address] [id number] [place] [address]- 0606 Jun, [facility] [place] [facility] [address] [id number] [place] [address]- 8603 Jun, [facility] [place] [facility] [address] [id number] [place] [address]- 3880 Jun, [facility] [place] [facility] [address] [id number] [place] [address]- 7822 Jun, [facility] [place] [facility] [address] [id number] [place] [address]- 5661 May, [facility] [place] [facility] [address] [id number] [place] [address]- 3649 May, [facility] [place] [facility] [address] [id number] [place] [address]- 1409 May, [facility] [place] [facility] [address] [id number] [place] [address]- 4396 May, [facility] [place] [facility] [address] [id number] [place] [address]- 6136 Feb, [facility] [place] [facility] [address] [id number] [place] [address]- 2158 Dec, [facility] [place] [facility] [address] [id number] [place] [address]- 9976 Dec, [facility] [place] [facility] [address] [id number] [place] [address]- 2546 Dec, [facility] [address] [id number] [place] [address]- 1135 Dec, [facility] [address] [id number] [place] [address]- 2546 Dec, [facility] [address] [id number] [place] [address]- 8336 Nov, [facility] [address] [id number] [place] [address]- 1599 Nov, [facility] [address] [id number] [place] [address]- 5433 Nov, [facility] [address] [id number] [place] [address]- 4726 Nov, [facility] [address] [id number] [place] [address]- 8893 October, [facility] [address] [id number] [place] [address]- 3699 October, [facility] [address] [id number] [place] [address]- 8176 October, [facility] [address] [id number] [place] [address]- 9622 Aug, [facility] [address] [id number] [place] [address]- 2546 Aug, [facility] [address] [id number] [place] [address]- 2104 Jul, [facility] [address] [id number] [place] [address]- 2546 Jun, [facility] [address] [id number] [place] [address]- 2546 Jun, [facility] [address] [id number] [place] [address]- 2875 May, [facility] [place] [facility] [address] [id number] [place] [address]- 5141 14 May, 2012 [facility] [place] [facility] [address] [id number] [place] [address]- 8984 05 May, 2012 [facility] [place] [facility] [address] [id number] [place] [address]85 May, [facility] [place] [facility] [address] [id number] [place] [address]- 8056 04 May, 2012 [facility] [place] [facility] [address] [id number] [place] [address]- 4713 May, [facility] [place] [facility] [address] [id number] [place] [address]- 5391 May, [facility] [place] [facility] [address] [facility] [id number] [place] [address]- 1883 Mar, [facility] [place] [facility] [address] [id number], [place] [address]- 0304 08 Mar, 2012 [facility] [place] [facility] [address] [id number] [place] [address]- 4153 Mar, [facility] [place] [facility] [address] [id number], [place] [address]- 9693 19 Feb, 2012 [facility] [place] [facility] [address] [id number], [place] [address]- 4748 08 Sep, 2011 [facility] [place] [facility] [address] [id number][place] [address]- 8682 05 Sep, 2011 [facility] [place] [facility] [address] [id number], [place] [address]- 2844 05 Sep, 2011 [facility] [place] [facility] [address] [id number], [place] [address]- 7633 04 Sep, 2011 [facility] [place] [facility] [address] [id number], [place] [address]- 7956 02 Sep, 2011 [facility] [place] [facility] [address] [id number] [place] [address]- 0737 Jan, [facility] [place] [facility] [address] [id number] [place] [address]- 9546 Jan, [facility] [place] [facility] [address] [id number] [place] [address]- 7586 Jan, [facility] [place] [facility] [address] [id number] [place] [address]- 7176 Jan, [facility] [place] [facility] [address] [id number] [place] [address]- 6019 Jan, [facility] [place] [facility] [address] [id number] [place] [address]- 3817 Jan, [facility] [place] [facility] [address] [id number] [place] [address]- 1251 Jan, [facility] [place] [facility] [address] [id number] [place] [address]- 5286 Jan, [facility] [place] [facility] [address] [id number] [place] [address]- 0399 Jan, [facility] [place] [facility] [address] [id number] [place] [address]- 8667 Jan, [facility] [place] [facility] [address] [id number] [place] [address]- 8456 Jan, [facility] [place] [facility] [address] [id number] [place] [address]- 4698 Jan, [facility] [place] [facility] [address] [id number] [place] [address]- 2549 Dec, [facility] [place] [facility] [address] [id number] [place] [address]- 8288 Dec, [facility] [place] [facility] [address] [id number] [place] [address]- 6275 Dec, [facility] [place] [facility] [address] [id number] [place] [address]- 0888 Dec, [facility] [place] [facility] [address] [id number] [place] [address]- 4226 Dec, [facility] [place] [facility] [address] [id number] [place] [address]- 3975 Dec, [facility] [place] [facility] [address] [id number] [place] [address]- 0034 Nov, [facility] [place] [facility] [address] [id number] [place] [address]- 6209 Nov, [facility] [place] [facility] [address] [id number] [place] [address]- 4704 Nov, [facility] [place] [facility] [address] [id number] [place] [address]- 0247 Nov, [facility] [place] [facility] [address] [id number] [place] [address]- 4058 Nov, [facility] [place] [facility] [address] [id number] [place] [address]- 7172 October, [facility] [place] [facility] [address] [id number] [place] [address]- 1671 October, [facility] [place] [facility] [address] [id number] [place] [address]- 9460 October, [facility] [place] [facility] [address] [id number] [place] [address]- 6287 October, [facility] [place] [facility] [address] [id number] [place] [address]- 0627 October, [facility] [place] [facility] [address] [id number] [place] [address]- 8216 October, [facility] [place] [facility] [address] [id number] [place] [address]- 6446 October, [facility] [place] [facility] [address] [id number] [place] [address]- 4175 October, [facility] [place] [facility] [address] [id number] [place] [address]- 2893 October, [facility] [address] [facility] [id number] [place] [address]- 8435 October, [facility] [address] [facility] [id number], [place] [address]- 2216 October, [facility] [address] [facility] [id number] [address]- 1564 October, [facility] [address] [facility] [id number], [place] [address]- 6289 Sep, [facility] [address] [facility] [id number], [place] [address]- 8050 Sep, [facility] [address] [id number] [address] Sep, IMMUNIZATIONS No Known Immunizations SOCIAL HISTORY Never Assessed REASON FOR VISIT follow up/ pt states he was also seen in the ER twice ,since he was seen here last, for his COPD. RUTH Colindres, pt also c/o sinus congestion and sore throat. RUTH Colindres PLAN OF CARE Activity Details Follow Up 3 months or as indicated by lab Reason: VITAL SIGNS Height 69 in 2018-03-18 Weight 222.4 lbs 2018-03-18 Temperature 97.6 degrees Fahrenheit 2018-03-18 Heart Rate 72 bpm 2018-03-18 Respiratory Rate 20 2018-03-18 BMI 32.84 kg/m2 2018-03-18 Blood pressure systolic 142 mmHg 2018-03-18 Blood pressure diastolic 92 mmHg 2018-03-18 MEDICATIONS Medication Instructions Dosage Frequency Start Date End Date Duration Status Advair Diskus 250-50 MCG/DOSE Inhalation Twice a day 1 puff 12h Jan, Active Cetirizine HCl 10 mg Orally Once a day 1 tablet 24h Mar, Sep, 30 day(s) Active Nebulizer - inhalation every 6 hours as needed as directed Aug, Active ProAir HFA 108 (90 Base) MCG/ACT Inhalation every 6 hrs 2 puffs as needed 6h Jan, Active Albuterol Sulfate (2.5 MG/3ML) 0.083% Inhalation every 4-6 hours as needed 3 ml as needed Jan, Active Lisinopril 10 mg Orally Once a day 1 tablet 24h Mar, 90 days Active RESULTS No Results PROCEDURES Procedure Date Ordered Result Body Site COMPREHEN METABOLIC PANEL Mar 18, 2018 ASSAY THYROID STIM HORMONE Mar 18, 2018 LIPID PANEL Mar 18, 2018 VENIPUNCT, ROUTINE* Mar 18, 2018 INSTRUCTIONS MEDICATIONS ADMINISTERED No Known Medications MEDICAL (GENERAL) HISTORY Type Description Date Medical History asthma Medical History hypothyroid Medical History Gerd Medical History COPD, severe Medical History GERARDO, uses CPAP Surgical History heart cath no interventions Hospitalization History asthma, shortness of breath x4 Hospitalization History chest pain
--- OUTSIDE RECORDS SUMMARY | 2018-04-02 21:00 | XMS REPORT ---
Author Author ALEA COOK [facility] Address [address] [place] [address] Care Team Providers Care Master Fire Control Technician Name Role Phone ALEA COOK Unavailable PROBLEMS Type Condition ICD9-CM Code [id number] Code Onset Dates Condition Status SNOMED Code Problem Essential hypertension I10 Active 82633131 Problem Seasonal allergic rhinitis due to pollen J30.1 Active 01568981 Problem Hypothyroidism (acquired) E03.9 Active 896455675 Problem Moderate persistent asthma without complication J45.40 Active 330649241 ALLERGIES No Information ENCOUNTERS Encounter Location Date Diagnosis [place] [id number] [address] Mar, [facility] [address] [address] Mar, [facility] [address] [address]- [address] Mar, Seasonal allergic rhinitis due to pollen J30.1 ; Moderate persistent asthma without complication J45.40 and Essential hypertension I10 [place] [address] [place] [id number] [place] [address]459- 0270 Feb, [facility] [address] [address]- [address] Jan, Moderate persistent asthma with acute exacerbation J45.41 [facility] [address] [address]- [address] Jan, [place] [address] [address]- [address] May, Severe persistent asthma without complication J45.50 ; Chronic nonseasonal allergic rhinitis due to other allergen J30.89 and Hypothyroidism, unspecified type E03.9 [facility] [id number] [place] [address]195- 5711 Apr, [facility] [address] [place] [id number] [place] [address] 31031- 4264 Apr, [facility] [address] [place] [id number] [place] [address] 42865- 4004 Apr, [facility] [address] [place] [id number] [place] [address] 03959- 2562 Mar, Hypothyroidism (acquired) E03.9 [facility] [address] [place] [id number] [place] [address] 25619- 8898 Mar, [facility] [address] [place] [id number] [place] [address] 09698- 8302 Mar, Chest wall pain R07.89 [facility] [address] [place] [id number] [place] [address] 72953- 5139 Mar, [facility] [address] [place] [id number] [place] [address] 48684- 2737 Dec, Moderate persistent asthma without complication J45.40 [facility] [address] [place] [id number] [place] [address] 58081- 2837 Nov, [facility] [address] [place] [id number] [place] [address] 63067- 9618 14 Aug, 2016 Moderate persistent asthma with acute exacerbation J45.41 and Hypothyroidism, unspecified type E03.9 [facility] [address] [address] Aug, Moderate persistent asthma with acute exacerbation J45.41 and Hypothyroidism, unspecified type E03.9 [facility] [address] [place] [id number] [place] [address] 75941- 2345 Sep, [facility] [address] [place] [id number] [place] [address] 73917- 5362 Sep, [facility] [address] [place] [address] Jul, [facility] [address] [place] [id number] [address] Jul, [facility] [address] [place] [address] Jun, [facility] [address] [place] [address] [id number] [address] 8[address] Jun, [facility] [address] [address] 2545 Jun, [facility] [address] [place] [id number] [address] Jun, [facility] [address] [place] [address] Jun, [facility] [address] [address] 7648 Jun, [facility] [address] [place] [address] May, [facility] [address] [place] [id number] [address] 4242 May, [facility] [address] [place] [address] Apr, [facility] [address] [place] [id number] [address] 7935 Apr, [facility] [address] [place] [address] Apr, [facility] [address] [place] [id number] [address] 6[address] Apr, [facility] [address] [place] [address] Feb, [facility] [address] [address] 8184 Feb, [facility] [address] [place] [address] Feb, [facility] [address] [address] 9621 Feb, [facility] [address] [place] [facility] [place] [address] Jan, [facility] [address] [facility] [id number] [address] Jan, [facility] [address] [place] [facility] [place] [address] Dec, [facility] [place] [facility] [address] [facility] [place] [id number] [address] 8821 Dec, [facility] [address] [place] [facility] [place] [address] Dec, [facility] [address] [place] [facility] [place] [address] Dec, [facility] [address] [place] [id number] [address] 2012 Dec, [facility] [place] [facility] [address] [place] [address] [id number] [address] 8073 Dec, [facility] [place] [facility] [address] [place] [id number] [place] [address]- 0943 Nov, [facility] [place] [facility] [address] [facility] [place] [id number] [address]- 4274 Nov, [facility] [place] [facility] [address] [place] [id number] [place] [address]- 2046 Nov, [facility] [place] [facility] [address] [facility] [place] [place] [id number] [address]- 0456 Nov, [facility] [place] [facility] [address] [facility] [place] [id number] [place] [address]- 0937 October, [facility] [place] [facility] [address] [facility] [place] [id number] [place] [address]- 7186 October, [facility] [place] [facility] [address] [facility] [place] [place] [id number] [place] [address]- 1761 October, [facility] [place] [facility] [address] [facility] [place] [id number] [address]- 1596 October, [facility] [address] [id number] [place] [address]- 7258 Sep, [facility] [place] [facility] [address] [id number] [place] [address]- 6036 Sep, [facility] [place] [facility] [address] [id number] [place] [address]- 9686 Jul, [facility] [place] [facility] [address] [id number] [place] [address]- 1923 Jun, [facility] [place] [facility] [address] [id number] [place] [address]- 9104 Jun, [facility] [place] [facility] [address] [id number] [place] [address]- 1646 Jun, [facility] [place] [facility] [address] [id number] [place] [address]- 7329 Jun, [facility] [place] [facility] [address] [id number] [place] [address]- 5653 Jun, [facility] [place] [facility] [address] [id number] [place] [address]- 5863 May, [facility] [place] [facility] [address] [id number] [place] [address]- 6041 May, [facility] [place] [facility] [address] [id number] [place] [address]- 5677 May, [facility] [place] [facility] [address] [id number] [place] [address]- 6600 May, [facility] [place] [facility] [address] [id number] [place] [address]- 5572 Feb, [facility] [place] [facility] [address] [id number] [place] [address]- 3384 Dec, [facility] [place] [facility] [address] [id number] [place] [address]- 1351 Dec, [facility] [place] [facility] [address] [id number] [place] [address]- 2546 Dec, [facility] [address] [id number] [place] [address]- 1594 Dec, [facility] [address] [id number] [place] [address]- 2546 Dec, [facility] [address] [id number] [place] [address]- 6080 Nov, [facility] [address] [id number] [place] [address]- 1083 Nov, [facility] [address] [id number] [place] [address]- 6322 Nov, [facility] [address] [id number] [place] [address]- 0906 Nov, [facility] [address] [id number] [place] [address]- 1126 October, [facility] [address] [id number] [place] [address]- 9456 October, [facility] [address] [id number] [place] [address]- 7363 October, [facility] [address] [id number] [place] [address]- 5417 Aug, [facility] [address] [id number] [place] [address]- 2546 Aug, [facility] [address] [id number] [place] [address]- 7447 Jul, [facility] [place] [facility] [address] [id number] [place] [address]- 0796 Jun, [facility] [address] [id number] [place] [address]- 2546 Jun, [facility] [address] [id number] [place] [address]- 9731 May, [facility] [place] [facility] [address] [id number] [place] [address]- 9648 14 May, 2012 [facility] [place] [facility] [address] [id number] [place] [address]- 8472 May, [facility] [place] [facility] [address] [id number] [place] [address]- 7056 04 May, 2012 [facility] [place] [facility] [address] [id number] [place] [address]- 2298 04 May, 2012 [facility] [place] [facility] [address] [id number] [place] [address]80 May, [facility] [place] [facility] [address] [id number] [place] [address]- 5035 May, [facility] [place] [facility] [address] [id number] [place] [address]- 2357 Mar, [facility] [place] [facility] [address] [id number] [place] [address]- 6084 08 Mar, 2012 [facility] [place] [facility] [address] [id number] [place] [address]- 4686 Mar, [facility] [place] [facility] [address] [id number] [place] [address]- 0869 19 Feb, 2012 [facility] [place] [facility] [address] [id number] [address]- 8703 08 Sep, 2011 [facility] [place] [facility] [address] [id number] [address]- 0777 05 Sep, 2011 [facility] [place] [facility] [address] [id number] [place] [address]- 7066 05 Sep, 2011 [facility] [place] [facility] [address] [id number] [place] [address]- 1346 04 Sep, 2011 [facility] [place] [facility] [address] [id number] [place] [address]- 4868 02 Sep, 2011 [facility] [place] [facility] [address] [id number] [place] [address]- 2696 Jan, [facility] [place] [facility] [address] [id number] [place] [address]- 0525 Jan, [facility] [place] [facility] [address] [id number] [place] [address]- 0284 Jan, [facility] [place] [facility] [address] [id number] [place] [address]- 3266 Jan, [facility] [place] [facility] [address] [id number] [place] [address]- 0066 Jan, [facility] [place] [facility] [address] [id number] [place] [address]- 9244 Jan, [facility] [place] [facility] [address] [id number] [place] [address]- 2884 Jan, [facility] [place] [facility] [address] [id number] [place] [address]- 8148 Jan, [facility] [place] [facility] [address] [id number] [place] [address]- 9921 Jan, [facility] [place] [facility] [address] [id number] [place] [address]- 6022 Jan, [facility] [place] [facility] [address] [id number] [place] [address]- 0173 Jan, [facility] [place] [facility] [address] [id number] [place] [address]- 9169 Jan, [facility] [place] [facility] [address] [id number] [place] [address]- 8344 Dec, [facility] [place] [facility] [address] [id number] [place] [address]- 1244 Dec, [facility] [place] [facility] [address] [id number] [place] [address]- 2100 Dec, [facility] [place] [facility] [address] [id number] [place] [address]- 2418 Dec, [facility] [place] [facility] [address] [id number] [place] [address]- 1260 Dec, [facility] [place] [facility] [address] [id number] [place] [address]- 7106 Dec, [facility] [place] [facility] [address] [id number] [place] [address]- 6936 Nov, [facility] [place] [facility] [address] [id number] [place] [address]- 6649 Nov, [facility] [place] [facility] [address] [id number] [place] [address]- 1001 Nov, [facility] [place] [facility] [address] [id number] [place] [address]- 3679 Nov, [facility] [place] [facility] [address] [id number] [place] [address]- 2851 Nov, [facility] [place] [facility] [address] [id number] [place] [address]- 3231 October, [facility] [place] [facility] [address] [id number] [place] [address]- 3299 October, [facility] [place] [facility] [address] [id number] [place] [address]- 2523 October, [facility] [place] [facility] [address] [id number] [place] [address]- 2307 October, [facility] [place] [facility] [address] [id number] [place] [address]- 6413 October, [facility] [place] [facility] [address] [id number] [place] [address]- 5960 October, [facility] [place] [facility] [address] [id number] [place] [address]- 1857 October, [facility] [place] [facility] [address] [id number] [place] [address]- 4516 October, [facility] [place] [facility] [address] [id number] [place] [address]- 0283 October, [facility] [address] [facility] [place] [id number] [address]- 0155 October, [facility] [address] [address]- 8559 October, [facility] [address] [id number] [address]- 9592 October, [facility] [address] [address]- 3442 Sep, [facility] [address] [id number] [address]- 2787 Sep, [facility] [address] [id number] [address]- 2126 Sep, IMMUNIZATIONS No Known Immunizations SOCIAL HISTORY Never Assessed REASON FOR VISIT Lab results PLAN OF CARE VITAL SIGNS MEDICATIONS Unknown [...]
--- OUTSIDE RECORDS SUMMARY | 2018-04-02 21:00 | XMS REPORT ---
Author Author ALEA COOK [facility] Address [address] [place] [address] Care Team Providers Care Photograph Finisher Name Role Phone ALEA COOK Unavailable PROBLEMS Type Condition ICD9-CM Code RJJ47-DV Code Onset Dates Condition Status SNOMED Code Problem Moderate persistent asthma with acute exacerbation J45.41 Active 644245399927377 Problem Chronic nonseasonal allergic rhinitis due to other allergen J30.89 Active 81588129 Problem Hypothyroidism, unspecified type E03.9 Active 95907554 Problem Hypothyroidism (acquired) E03.9 Active 852759753 Problem Moderate persistent asthma without complication J45.40 Active 763185424 ALLERGIES No Known Allergies ENCOUNTERS Encounter Location Date Diagnosis [facility] [address] [address] Feb, [facility] [address] [address] Jan, Moderate persistent asthma with acute exacerbation J45.41 [facility] [id number] [place] [address]- [address] Jan, [facility] [id number] [place] [address]- 7624 May, Severe persistent asthma without complication J45.50 ; Chronic nonseasonal allergic rhinitis due to other allergen J30.89 and Hypothyroidism, unspecified type E03.9 [facility] [address] [address] Apr, [facility] [address] [address] Apr, [facility] [address] [address] Apr, [facility] [id number] [address] Mar, Hypothyroidism (acquired) E03.9 [facility] [address], [place] [address] Mar, [facility] [id number] [place] [address]- 5908 Mar, Chest wall pain R07.89 [facility] [id number] [place] [address]- 2902 Mar, [facility] [id number] [place] [address]- 9497 Dec, Moderate persistent asthma without complication J45.40 [facility] [id number] [place] [address] 6[address]- 2291 Nov, [facility] [id number] [place] [address]14- 26[address] Aug, Moderate persistent asthma with acute exacerbation J45.41 and Hypothyroidism, unspecified type E03.9 [facility] [id number] [place] [address]- 4161 Aug, Moderate persistent asthma with acute exacerbation J45.41 and Hypothyroidism, unspecified type E03.9 [facility] [address], [place] [address] Sep, [facility] [id number] [place] [address]- 6288 Sep, [facility] [address] [place] [address] Jul, [facility] [id number] [place] [address]- 9328 Jul, [facility] [address] [place] [address] Jun, [facility] [id number] [place] [address]- [address] Jun, [facility] [address] [facility] [id number], [place] [address] Jun, [facility] [address] [facility] [id number], [place] [address] Jun, [facility] [address] [place] [address] Jun, [facility] [id number], [place] [address] Jun, [facility] [address] [place] [address] May, [facility] [id number] [place] [address]- 9605 May, [facility] [address] [place] [address] Apr, [facility] [id number] [address] Apr, [facility] [address] [place] [address] Apr, [facility] [id number] [place] [address]- 5113 Apr, [facility] [address] [place] [address] Feb, [facility] [id number], [place] [address] Feb, [facility] [address] [place] [address] Feb, [facility] [id number], [place] [address] Feb, [facility] [address] [place] [address] Jan, [facility] [id number], [place] [address] Jan, [facility] [address] [place] [address] Dec, [facility] [address] [id number] [place] [address] Dec, [facility] [address] [place] [place] [address] Dec, [facility] [address] [place] [place] [address] Dec, [facility] [place] [facility] [address] [id number] [place] [address]- 5116 Dec, [facility] [place] [facility] [address] [id number] [place] [address]- 4798 Dec, [facility] [place] [facility] [address] [id number] [place] [address]- 240[address] Nov, [facility] [place] [facility] [address] [id number] [place] [address]- 5162 Nov, [facility] [place] [facility] [address] [id number] [place] [address]- 7193 Nov, [facility] [place] [facility] [address] [id number] [place] [address]- 4284 Nov, [facility] [place] [facility] [address] [id number] [place] [address]- 4413 October, [facility] [place] [facility] [address] [id number] [place] [address]- 7609 October, [facility] [place] [facility] [address] [id number], [place] [address]- 2625 October, [facility] [place] [facility] [address] [id number] [place] [address]- 1506 October, [facility] [place] [facility] [address] [id number] [place] [address]- 3199 Sep, [facility] [place] [facility] [address] [id number] [place] [address]- 5626 Sep, [facility] [place] [facility] [address] [id number], [place] [address]- 75[address] Jul, [facility] [address] [id number] [place] [address]- 7142 Jun, [facility] [place] [facility] [address] [id number] [place] [address]- 9864 Jun, [facility] [place] [facility] [address] [id number] [place] [address]- 9808 Jun, [facility] [place] [facility] [address] [id number] [place] [address]- 4333 Jun, [facility] [place] [facility] [address] [id number] [place] [address]- 3390 Jun, [facility] [place] [facility] [address] [id number] [place] [address]- 5560 May, [facility] [address] [id number] [place] [address]- 3704 May, [facility] [place] [facility] [address] [id number] [place] [address]- 0085 May, [facility] [place] [facility] [address] [id number] [place] [address]- 3300 May, [facility] [place] [facility] [address] [facility] [id number] [place] [address]- 2095 Feb, [facility] [place] [facility] [address] [id number] [place] [address]- 8175 Dec, [facility] [place] [facility] [address] [id number] [place] [address]- 2228 Dec, [facility] [place] [facility] [address] [id number] [place] [address]- 8058 Dec, [facility] [place] [facility] [address] [id number] [place] [address]- 1932 Dec, [facility] [place] [facility] [address] [facility] [id number] [place] [address]- 3675 Dec, [facility] [place] [facility] [address] [id number] [place] [address]- 2871 Nov, [facility] [address] [id number] [place] [address]- 1275 Nov, [facility] [place] [facility] [address] [id number] [place] [address]- 4513 Nov, [facility] [address] [id number] [place] [address]- 9321 Nov, [facility] [place] [facility] [address] [id number] [place] [address]- 8656 October, [facility] [address] [id number] [place] [address]- 7930 October, [facility] [place] [facility] [address] [id number] [place] [address]- 4800 October, [facility] [address] [id number] [place] [address]- 2301 Aug, [facility] [address] [id number] [place] [address]- 0890 Aug, [facility] [place] [facility] [address] [id number] [place] [address]- 0999 Jul, [facility] [place] [facility] [address] [id number] [place] [address]- 119[address] Jun, [facility] [place] [facility] [address] [id number] [place] [address]- 5319 Jun, [facility] [place] [facility] [address] [id number] [place] [address]- 8196 May, [facility] [place] [facility] [address] [id number] [place] [address]- 0915 May, [facility] [place] [facility] [address] [id number] [place] [address]- 2486 May, [facility] [place] [facility] [address] [id number] [place] [address]- 1893 May, [facility] [place] [facility] [address] [id number] [place] [address]- 5989 May, [facility] [place] [facility] [address] [id number] [place] [address]- 2358 May, [facility] [place] [facility] [address] [id number] [place] [address]- 8968 May, [facility] [place] [facility] [address] [id number] [place] [address]- 3856 Mar, [facility] [place] [facility] [address] [id number] [place] [address]- 5662 Mar, [facility] [place] [facility] [address] [id number] [place] [address]- 3036 Mar, [facility] [place] [facility] [address] [id number] [place] [address]- 7981 Feb, [facility] [place] [facility] [address] [id number] [place] [address]- 8559 08 Feb, 2012 [facility] [place] [facility] [address] [id number] [place] [address]- 5897 05 Feb, 2012 [facility] [place] [facility] [address] [id number] [place] [address]- 1360 Feb, [facility] [place] [facility] [address] [id number], [place] [address]- 4316 Feb, [facility] [place] [facility] [address] [id number], [place] [address]- 8608 Feb, [facility] [place] [facility] [address] [id number] [place] [address]- 3470 Jan, [facility] [place] [facility] [address] [id number] [place] [address]- 6006 Jan, [facility] [place] [facility] [address] [id number] [place] [address]- 9032 Jan, [facility] [place] [facility] [address] [id number] [place] [address]- 5963 Jan, [facility] [place] [facility] [address] [id number] [place] [address]- 1506 Jan, [facility] [place] [facility] [address] [id number] [place] [address]- 7376 Jan, [facility] [place] [facility] [address] [id number] [place] [address]- 0776 Jan, [facility] [place] [facility] [address] [id number] [place] [address] 2545 Jan, [facility] [place] [facility] [address] [id number] [place] [address]- 8488 Jan, [facility] [place] [facility] [address] [id number] [place] [address]- 8516 Jan, [facility] [place] [facility] [address] [id number] [place] [address]- 6342 Jan, [facility] [place] [facility] [address] [id number] [place] [address]- 4555 Jan, [facility] [place] [facility] [address] [id number] [place] [address]- 2355 Dec, [facility] [place] [facility] [address] [id number] [place] [address]- 2221 Dec, [facility] [place] [facility] [address] [id number] [place] [address] 2549 Dec, [facility] [place] [facility] [address] [id number] [place] [address]- 2543 Dec, [facility] [place] [facility] [address] [id number] [place] [address]- 7280 Dec, [facility] [place] [facility] [address] [id number] [place] [address]- 2546 Dec, [facility] [place] [facility] [address] [id number] [place] [address]- 0918 Nov, [facility] [place] [facility] [address] [id number] [place] [address]- 9813 Nov, [facility] [address] [id number] [place] [address]- 8848 Nov, [facility] [address] [id number] [place] [address]- 0161 Nov, [facility] [address] [id number] [place] [address]- 5009 Nov, [facility] [address] [id number] [place] [address]- 7663 October, [facility] [address] [id number] [place] [address]- 9940 October, [facility] [address] [id number] [place] [address]- 8877 October, [facility] [address] [id number] [place] [address]- 3360 October, [facility] [address] [id number] [place] [address]- 0665 October, [facility] [address] [id number] [place] [address]- 1545 October, [facility] [address] [id number] [place] [address]- 3087 October, [facility] [address] [id number] [place] [address]- 6161 October, [facility] [address] [id number] [place] [address]- 4223 October, [facility] [place] [facility] [address] [id number] [place] [address]- 8935 October, [facility] [address] [id number] [place] [address]- 3942 October, [facility] [address] [id number] [place] [address]- 3278 October, [facility] [address] [facility] [id number] [place] [address]- 3556 Sep, [facility] [address] [facility] [id number], [place] [address]- 9426 Sep, [facility] [address] [facility] [id number], [place] [address]- 3828 Sep, IMMUNIZATIONS No Known Immunizations SOCIAL HISTORY Never Assessed REASON FOR VISIT COPD/ was in ER this weekend for exacerbation of COPD and is following up today. Bernadine MIRANDA PLAN OF CARE Activity Details Follow Up 4 Weeks Reason:asthma Future/Pending Procedure NEBULIZER TREATMENT VITAL SIGNS Height 69 in 2018-02-05 Weight 215.6 lbs 2018-02-05 Temperature 97.8 degrees Fahrenheit 2018-02-05 Heart Rate 74 bpm 2018-02-05 Respiratory Rate 22 2018-02-05 Oximetry on room air:97 % 2018-02-05 BMI 31.84 kg/m2 2018-02-05 Blood pressure systolic 150 mmHg 2018-02-05 Blood pressure diastolic 92 mmHg 2018-02-05 MEDICATIONS Medication Instructions Dosage Frequency Start Date End Date Duration Status ProAir HFA 108 (90 Base) MCG/ACT Inhalation every 6 hrs 2 puffs as needed 6h Jan, 30 days Active Advair Diskus 250-50 MCG/DOSE Inhalation Twice a day 1 puff 12h Jan, 30 days Active ProAir HFA 108 (90 Base) MCG/ACT Inhalation 4 times a day 2 puffs as needed 6h Active PredniSONE 50 mg Orally Once a day 1 tablet 24h Jan, Feb, 07 days Active Albuterol Sulfate (2.5 MG/3ML) 0.083% Inhalation every 6 hrs, voucher 1st fill 3 ml as needed Apr, Active Nebulizer - inhalation every 6 hours as needed as directed Aug, Active Albuterol Sulfate (2.5 MG/3ML) 0.083% Inhalation every 4-6 hours as needed 3 ml as needed Jan, Active RESULTS No Results PROCEDURES Procedure Date Ordered Result Body Site NEB/MDI RX INITIAL Feb 05, 2018 INSTRUCTIONS MEDICATIONS ADMINISTERED No Known Medications MEDICAL (GENERAL) HISTORY Type Description Date Medical History asthma Medical History hypothyroid Medical History Gerd Medical History COPD, severe Medical History GERARDO, uses CPAP Surgical History heart cath no interventions Hospitalization History asthma, shortness of breath x4 Hospitalization History chest pain
--- OUTSIDE RECORDS SUMMARY | 2018-04-02 21:01 | XMS REPORT ---
Author Author CHELSY MORALES Organization [facility] Address [address] [place] [address] Care Team Providers Care Band Saw Marker Name Role Phone CHELSY MORALES Unavailable PROBLEMS Type Condition ICD9-CM Code [id number] Code Onset Dates Condition Status SNOMED Code Problem Moderate persistent asthma with acute exacerbation J45.41 Active 121591341472667 Problem Chronic nonseasonal allergic rhinitis due to other allergen J30.89 Active 06337151 Problem Hypothyroidism, unspecified type E03.9 Active 72666192 Problem Hypothyroidism (acquired) E03.9 Active 477093545 Problem Moderate persistent asthma without complication J45.40 Active [id number] ALLERGIES No Information ENCOUNTERS Encounter Location Date Diagnosis [place] [id number] [place] [address] 79580- 3334 Feb, [place] [id number] [place] [address] 97878- 2929 Jan, Moderate persistent asthma with acute exacerbation J45.41 [place] [id number] [place] [address] 88440- 4578 Jan, [place] [id number] [place] [address] 65261- 1386 May, Severe persistent asthma without complication J45.50 ; Chronic nonseasonal allergic rhinitis due to other allergen J30.89 and Hypothyroidism, unspecified type E03.9 [facility] [id number] [place] [address] 86429- 0613 Apr, [place] [id number] [place] [address] 22282- 1178 Apr, [facility] [id number] [place] [address] 30488- 3785 Apr, [place] [id number] [address] 7988 Mar, Hypothyroidism (acquired) E03.9 [facility] [id number] [place] [address] 04682- 9734 Mar, [facility] [id number] [place] [address] 02305- 9215 Mar, Chest wall pain R07.89 [facility] [id number] [place] [address] 11089- 0526 Mar, [facility] [id number] [place] [address] 16071- 0727 Dec, Moderate persistent asthma without complication J45.40 [facility] [id number] [place] [address] 85470- 2348 Nov, [facility] [id number] [place] [address] 30657- 0650 Aug, Moderate persistent asthma with acute exacerbation J45.41 and Hypothyroidism, unspecified type E03.9 [facility] [id number] [place] [address] 73637- 5574 Aug, Moderate persistent asthma with acute exacerbation J45.41 and Hypothyroidism, unspecified type E03.9 [facility] [id number] [address] 9064 Sep, [facility] [id number] [place] [address] 22416- 3744 Sep, [facility] [place] [address] [place] [address] Jul, [facility] [id number] [place] [address] 71342- 9643 Jul, [facility] [place] [address] [place] [address] Jun, [facility] [id number] [place] [address] 24776- 1897 Jun, [place] [id number] [address] 6891 Jun, [facility] [id number] [address] 4572 Jun, [facility] [place] [address] [place] [address] Jun, [facility] [id number] [address] 8067 Jun, [facility] [place] [address] [place] [address] May, [facility] [id number] [place] [address] 25727- 0077 May, [facility] [address] [place] [address] Apr, [facility] [id number], [place] [address] 8064 Apr, [facility] [place] [address] [place] [address] Apr, [facility] [id number] [address] 5868 Apr, [facility] [address] [place] [address] Feb, [facility] [id number] [address] 7104 Feb, [facility] [place] [address] [place] [address] Feb, [facility] [id number] [address] 1674 Feb, [facility] [place] [address] [place] [address] Jan, [facility] [id number], [place] [address] 0868 Jan, [facility] [place] [address] [place] [address] Dec, [facility] [address] [id number] [place] [address] 6457 Dec, [facility] [place] [address] [place] [facility] [place] [address] Dec, [facility] [place] [address] [place] [address] Dec, [facility] [address] [id number] [place] [address]- 7422 Dec, [facility] [address] [id number] [place] [address]- 3136 Dec, [facility] [address] [id number] [place] [address]- 3470 Nov, [facility] [address] [id number] [place] [address]- 8653 Nov, [facility] [address] [id number] [place] [address]- 2506 Nov, [facility] [address] [id number] [place] [address]- 7291 Nov, [facility] [address] [id number] [place] [address]- 0345 October, [facility] [address] [id number] [place] [address]- 5873 October, [facility] [place] [facility] [address] [id number] [place] [address]- 1724 October, [facility] [address] [id number] [place] [address]- 4221 October, [facility] [place] [facility] [address] [id number] [place] [address]- 3042 Sep, [facility] [place] [facility] [address] [id number] [place] [address]- 3626 Sep, [facility] [address] [id number] [place] [address]- 1500 Jul, [facility] [address] [id number] [place] [address]- 1113 Jun, [facility] [place] [facility] [address] [id number] [place] [address]- 0967 Jun, [facility] [place] [facility] [address] [id number] [place] [address]- 4820 Jun, [facility] [place] [facility] [address] [id number] [place] [address]- 9025 Jun, [facility] [place] [facility] [address] [id number] [place] [address]- 1560 Jun, [facility] [place] [facility] [address] [id number] [place] [address]- 2597 May, [facility] [place] [facility] [address] [id number] [place] [address]- 6051 May, [facility] [place] [facility] [address] [id number] [place] [address]- 9220 May, [facility] [place] [facility] [address] [id number] [place] [address]- 0849 May, [facility] [place] [facility] [address] [id number] [place] [address]- 8729 Feb, [facility] [place] [facility] [address] [id number] [place] [address]- 2981 Dec, [facility] [place] [facility] [address] [id number] [address]- 6793 Dec, [facility] [place] [facility] [address] [id number] [place] [address]- 6381 Dec, [facility] [place] [facility] [address] [id number] [place] [address]- 2849 Dec, [facility] [place] [facility] [address] [id number] [place] [address]- 6670 Dec, [facility] [place] [facility] [address] [id number] [place] [address]- 0094 Nov, [facility] [address] [id number] [place] [address]- 8607 Nov, [facility] [address] [id number] [place] [address]- 5607 Nov, [facility] [address] [id number] [place] [address]- 1285 Nov, [facility] [address] [id number] [place] [address]- 4733 October, [facility] [address] [id number] [place] [address]- 5860 October, [facility] [address] [id number] [place] [address]- 2788 October, [facility] [address] [id number] [place] [address]- 7666 Aug, [facility] [address] [id number] [place] [address]- 2392 Aug, [facility] [address] [id number] [place] [address]- 7609 Jul, [facility] [address] [id number] [place] [address]- 2792 Jun, [facility] [address] [id number] [place] [address]- 3268 Jun, [facility] [address] [id number] [place] [address]- 8846 May, [facility] [place] [facility] [address] [id number] [place] [address]- 0531 May, [facility] [place] [facility] [address] [id number] [place] [address]- 0518 May, [facility] [address] [id number] [place] [address]- 3759 May, [facility] [place] [facility] [address] [id number] [place] [address]- 4939 May, [facility] [place] [facility] [address] [id number] [place] [address]- 1982 May, [facility] [place] [facility] [address] [id number] [place] [address]- 6366 May, [facility] [place] [facility] [address] [id number] [place] [address]- 7876 Mar, [facility] [place] [facility] [address] [id number] [place] [address]- 2882 Mar, [facility] [place] [facility] [address] [id number] [place] [address]- 9341 Mar, [facility] [place] [facility] [address] [id number] [place] [address]- 5514 Feb, [facility] [place] [facility] [address] [id number] [place] [address]- 0037 Feb, [facility] [place] [facility] [address] [id number] [place] [address]- 1767 Feb, [facility] [place] [facility] [address] [id number] [place] [address]- 4753 Feb, [facility] [place] [facility] [address] [id number] [place] [address]- 4338 Feb, [facility] [place] [facility] [address] [id number] [place] [address]- 7980 Feb, [facility] [place] [facility] [address] [id number] [place] [address]- 3881 Jan, [facility] [place] [facility] [address] [id number] [place] [address]- 3482 Jan, [facility] [place] [facility] [address] [id number] [place] [address]- 9874 Jan, [facility] [place] [facility] [address] [id number] [place] [address]- 2545 Jan, [facility] [place] [facility] [address] [id number] [place] [address]- 8164 Jan, [facility] [place] [facility] [address] [id number] [place] [address]- 8037 Jan, [facility] [place] [facility] [address] [id number] [place] [address]- 4452 Jan, [facility] [place] [facility] [address] [id number] [place] [address]- 9399 Jan, [facility] [place] [facility] [address] [id number] [place] [address]- 7315 Jan, [facility] [place] [facility] [address] [id number] [place] [address]- 5173 Jan, [facility] [place] [facility] [address] [id number] [place] [address]- 2715 Jan, [facility] [place] [facility] [address] [id number] [place] [address]- 4548 Jan, [facility] [place] [facility] [address] [id number] [place] [address]- 5661 Dec, [facility] [place] [facility] [address] [id number] [place] [address]- 3496 Dec, [facility] [place] [facility] [address] [id number] [place] [address]- 9608 Dec, [facility] [place] [facility] [address] [id number] [place] [address]- 2144 Dec, [facility] [place] [facility] [address] [id number] [place] [address]- 1420 Dec, [facility] [place] [facility] [address] [id number] [place] [address]- 7306 Dec, [facility] [place] [facility] [address] [id number] [place] [address]- 3044 Nov, [facility] [place] [facility] [address] [id number] [place] [address]- 6415 Nov, [facility] [address] [id number] [place] [address]- 5406 Nov, [facility] [address] [id number] [place] [address]- 0032 Nov, [facility] [address] [id number] [place] [address]- 0250 Nov, [facility] [address] [id number] [place] [address]- 3501 October, [facility] [address] [id number] [place] [address]- 2825 October, [facility] [address] [id number] [place] [address]- 7836 October, [facility] [address] [id number] [place] [address]- 6986 October, [facility] [address] [id number] [place] [address]- 9567 October, [facility] [address] [id number] [place] [address]- 3014 October, [facility] [address] [id number] [place] [address]- 7445 October, [facility] [address] [id number] [place] [address]- 3961 October, [facility] [address] [id number] [place] [address]- 6696 October, [facility] [address] [id number] [place] [address]- 6866 October, [facility] [address] [id number] [place] [address]- 2176 October, [facility] [address] [id number] [place] [address]- 3694 October, [facility] [address] [facility] [id number] [place] [address]- 7504 Sep, [facility] [address] [facility] [id number] [place] [address]- 0209 Sep, [facility] [address] [facility] [id number] [place] [address]- 6548 Sep, IMMUNIZATIONS No Known Immunizations SOCIAL HISTORY Never Assessed REASON FOR VISIT Requests samples PLAN OF CARE VITAL SIGNS MEDICATIONS Unknown [...]
--- OUTSIDE RECORDS SUMMARY | 2018-04-02 21:01 | XMS REPORT ---
Author Author CHELSY MORALES Organization [facility] Address [address] [place] [address] Care Team Providers Care Acute Care Nurse Practitioner Name Role Phone CHELSY MORALES Unavailable PROBLEMS Type Condition ICD9-CM Code BXZ75-KB Code Onset Dates Condition Status SNOMED Code Problem Chronic nonseasonal allergic rhinitis due to other allergen J30.89 Active 00932971 Problem Hypothyroidism (acquired) E03.9 Active 140250180 Problem Moderate persistent asthma without complication J45.40 Active 462839647 Problem Hypothyroidism, unspecified type E03.9 Active 00568552 ALLERGIES No Information ENCOUNTERS Encounter Location Date Diagnosis [place] [id number] [place] [address] May, Severe persistent asthma without complication J45.50 ; Chronic nonseasonal allergic rhinitis due to other allergen J30.89 and Hypothyroidism, unspecified type E03.9 [facility] [id number] [place] [address] 91509- 9197 Apr, [facility] [id number] [place] [address] 60259- 9783 Apr, [facility] [id number] [place] [address] 43327- 6812 Apr, [facility] [id number] [place] [address] 38062- 2378 Mar, Hypothyroidism (acquired) E03.9 [facility] [id number] [place] [address] 88772- 3137 Mar, [facility] [id number] [place] [address] 40711- 2705 Mar, Chest wall pain R07.89 [facility] [id number] [place] [address] 01851- 6048 Mar, [facility] [id number] [address] Dec, Moderate persistent asthma without complication J45.40 [facility] [address] [facility] [id number] [address] 14 Nov, 2016 [facility] [address] [id number] [address] 14 Aug, 2016 Moderate persistent asthma with acute exacerbation J45.41 and Hypothyroidism, unspecified type E03.9 [facility] [address] [id number] Aug, Moderate persistent asthma with acute exacerbation J45.41 and Hypothyroidism, unspecified type E03.9 [facility] [address] [id number] [address] 8874 Sep, [facility] [address] [id number] [address] Sep, [facility] [place] [address] [id number] [place] [id number] Jul, [facility] [address] [id number] [address] 9654 Jul, [facility] [place] [address] [id number] [place] [id number] Jun, [facility] [address] [id number] [address] 8074 Jun, [facility] [address] [id number] [address] 6274 Jun, [facility] [address] [id number] [address] 8916 Jun, [facility] [place] [address] [id number] [place] [id number] Jun, [facility] [address] [id number] 7[address] Jun, [facility] [place] [address] [id number] [place] [id number] May, [facility] [place] [facility] [address] [id number] [place] [address]- 7256 May, [facility] [place] [address] [id number] [place] [id number] Apr, [facility] [address] [id number] [place] [address]- 3241 Apr, [facility] [place] [address] [id number] [place] [id number] Apr, [facility] [address] [id number] [place] [address] Apr, [facility] [place] [address] [id number] [place] [id number] Feb, [facility] [address] [id number] [place] [address]- 0335 Feb, [facility] [place] [address] [id number] [place] [id number] Feb, [facility] [place] [facility] [address] [id number] [place] [address]- 3951 Feb, [facility] [place] [address] [id number] [place] [id number] Jan, [facility] [place] [facility] [address] [id number] [place] [address]- 5268 Jan, [facility] [place] [address] [id number] [place] [id number] Dec, [facility] [place] [facility] [address] [id number] [place] [address]- 9026 Dec, [facility] [place] [address] [id number] [place] [id number] Dec, [facility] [place] [address] [id number] [place] [id number] Dec, [facility] [place] [facility] [address] [id number] [place] [address]- 0149 Dec, [facility] [place] [facility] [address] [id number] [place] [address]- 5119 Dec, [facility] [place] [facility] [address] [id number] [place] [address]- 1889 Nov, [facility] [place] [facility] [address] [id number] [place] [address]- 4343 Nov, [facility] [place] [facility] [address] [id number] [place] [address]- 3886 Nov, [facility] [place] [facility] [address] [id number] [place] [address]- 9368 Nov, [facility] [place] [facility] [address] [id number] [place] [address]- 5652 October, [facility] [place] [facility] [address] [id number] [place] [address]- 8228 October, [facility] [place] [facility] [address] [id number] [place] [address]- 5479 October, [facility] [place] [facility] [address] [id number] [place] [address]- 3015 October, [facility] [place] [facility] [address] [id number] [place] [address]- 1653 Sep, [facility] [place] [facility] [address] [id number] [place] [address]- 9657 Sep, [facility] [place] [facility] [address] [id number] [place] [address]- 7888 Jul, [facility] [place] [facility] [address] [id number] [place] [address]- 1221 Jun, [facility] [place] [facility] [address] [id number] [place] [address]- 9204 Jun, [facility] [place] [facility] [address] [id number] [place] [address]- 0283 Jun, [facility] [place] [facility] [address] [id number] [place] [address]- 0159 Jun, [facility] [place] [facility] [address] [id number] [place] [address]- 0418 Jun, [facility] [place] [facility] [address] [id number] [place] [address]- 6147 May, [facility] [place] [facility] [address] [id number] [place] [address]- 9725 May, [facility] [address] [id number] [place] [address]- 0823 May, [facility] [place] [facility] [address] [id number] [place] [address]- 3413 May, [facility] [address] [id number] [place] [address]- 9952 Feb, [facility] [address] [id number] [place] [address]- 7738 Dec, [facility] [place] [facility] [address] [id number] [place] [address]- 3533 Dec, [facility] [place] [facility] [address] [id number] [place] [address]- 1984 Dec, [facility] [place] [facility] [address] [id number] [place] [address]- 6247 Dec, [facility] [place] [facility] [address] [id number], [place] [address]- 5147 Dec, [facility] [place] [facility] [address] [id number] [place] [address]- 1932 Nov, [facility] [place] [facility] [address] [id number] [place] [address]- 7514 Nov, [facility] [place] [facility] [address] [id number], [place] [address]- 7616 Nov, [facility] [place] [facility] [address] [id number], [place] [address]- 2400 Nov, [facility] [address] [id number] [place] [address]- 1494 October, [facility] [address] [id number] [place] [address]- 7481 October, [facility] [address] [facility] [id number] [place] [address]- 1981 October, [facility] [address] [id number] [place] [address]- 5833 Aug, [facility] [address] [id number] [place] [address]- 7020 Aug, [facility] [address] [id number] [place] [address]- 3484 Jul, [facility] [address] [facility] [id number] [place] [address]- 0459 Jun, [facility] [address] [id number] [place] [address]- 6673 Jun, [facility] [address] [facility] [id number] [place] [address]- 9096 May, [facility] [address] [facility] [id number] [place] [address]- 8597 May, [facility] [address] [id number], [place] [address]- 3605 May, [facility] [place] [facility] [address] [id number], [place] [address]- 1349 May, [facility] [place] [facility] [address] [id number] [place] [address] May, [facility] [place] [facility] [address] [id number] [place] [address]- 2639 May, [facility] [address] [facility] [id number] [place] [address]- 7186 May, [facility] [place] [facility] [address] [id number] [place] [address]- 8865 Mar, [facility] [place] [facility] [address] [id number] [place] [address]- 0225 08 Mar, 2012 [facility] [place] [facility] [address] [id number] [place] [address]- 3026 05 Mar, 2012 [facility] [place] [facility] [address] [id number] [place] [address]- 1096 19 Feb, 2011 [facility] [place] [facility] [address] [id number] [place] [address]- 6126 08 Feb, 2011 [facility] [place] [facility] [address] [id number] [place] [address]- 2086 05 Feb, 2011 [facility] [place] [facility] [address] [id number] [place] [address]- 1598 05 Feb, 2011 [facility] [place] [facility] [address] [id number] [place] [address]- 8659 Feb, 2011 [facility] [place] [facility] [address] [id number] [place] [address]- 6724 Feb, [facility] [place] [facility] [address] [id number] [place] [address]- 0465 Jan, [facility] [place] [facility] [address] [id number] [place] [address]- 2459 Jan, [facility] [place] [facility] [address] [id number] [place] [address]- 4680 Jan, [facility] [place] [facility] [address] [id number] [place] [address]- 2549 Jan, [facility] [place] [facility] [address] [id number] [place] [address]- 6316 Jan, [facility] [place] [facility] [address] [id number] [place] [address]- 1289 Jan, [facility] [place] [facility] [address] [id number] [place] [address]- 3847 Jan, [facility] [place] [facility] [address] [id number] [place] [address]- 6109 Jan, [facility] [place] [facility] [address] [id number] [place] [address]- 8385 Jan, [facility] [place] [facility] [address] [id number] [place] [address]- 4463 Jan, [facility] [place] [facility] [address] [id number] [place] [address]- 0711 Jan, [facility] [place] [facility] [address] [id number] [place] [address]- 5326 Jan, [facility] [place] [facility] [address] [id number] [place] [address]- 0558 Dec, [facility] [place] [facility] [address] [id number] [place] [address]- 3003 Dec, [facility] [place] [facility] [address] [id number] [place] [address]- 9183 Dec, [facility] [place] [facility] [address] [id number] [place] [address]- 9368 Dec, [facility] [place] [facility] [address] [id number] [place] [address]- 8531 Dec, [facility] [place] [facility] [address] [id number] [place] [address]- 5348 Dec, [facility] [place] [facility] [address] [id number] [place] [address]- 5502 Nov, [facility] [place] [facility] [address] [id number] [place] [address]- 0716 Nov, [facility] [place] [facility] [address] [id number] [place] [address]- 1135 Nov, [facility] [place] [facility] [address] [id number] [place] [address]- 1668 Nov, [facility] [place] [facility] [address] [id number] [place] [address]- 8315 Nov, [facility] [address] [id number] [place] [address]- 5656 October, [facility] [address] [id number] [place] [address]- 5966 October, [facility] [address] [facility] [id number] [place] [address]- 9066 October, [facility] [address] [id number] [place] [address]- 3927 October, [facility] [address] [id number] [place] [address]- 8747 October, [facility] [address] [id number] [place] [address]- 4566 October, [facility] [address] [facility] [id number] [place] [address]- 1203 October, [facility] [address] [id number] [place] [address]- 2945 October, [facility] [address] [id number] [place] [address]- 7696 October, [facility] [address] [facility] [id number] [place] [address]- 0796 October, [facility] [address] [facility] [id number] [place] [address]- 7526 October, [facility] [address] [id number] [place] [address]- 3086 October, [facility] [address] [id number] [place] [address]- 2041 Sep, [facility] [address] [facility] [id number] [place] [address]- 2720 Sep, [facility] [address] [facility] [id number] [place] [address]- 4534 Sep, IMMUNIZATIONS No Known Immunizations SOCIAL HISTORY Never Assessed REASON FOR VISIT Hospital F/U PLAN OF CARE VITAL SIGNS MEDICATIONS Unknown Medications RESULTS No Results PROCEDURES No Known procedures INSTRUCTIONS MEDICATIONS ADMINISTERED No Known Medications MEDICAL (GENERAL) HISTORY Type Description Date Medical History asthma Medical History hypothyroid Medical History Gerd Surgical History heart cath no interventions Hospitalization History asthma, shortness of breath x4 Hospitalization History chest pain
--- OUTSIDE RECORDS SUMMARY | 2018-04-02 21:03 | XMS REPORT | Continuity of Care Document ---
Author Author [facility] Organization [facility] Address Unknown Phone Unavailable Care Team Providers Care Ethanol Quality Leader Name Role Phone MICHELLE MOLINA DIRECTOR OF ACCOUNTS PAYABLE PP Insurance Providers Payer Name Policy Number Subscriber Name Relationship Self Pay Vladimir Cordero 01 Self / Same As Patient Advance Directives Directive Response Recorded Date Advance Directives N 11/12/12 10:32am Health Care Power of Gyroscopic Instrument Mechanic N 11/12/12 10:32am Organ Donor N 11/12/12 10:32am Problems No Known Problems or Medical conditions. Social History History Response Recorded Date/Time Alcohol Use Denies Use 06/18/12 9:58pm Recreational Drug Use N 06/18/12 9:58pm Allergies, Adverse Reactions, Alerts Allergen Type Severity Reaction Last Updated No Known Drug Allergies 05/04/11 Medications Medication Dose Units Route Sig Qty Days Albuterol (Proair Hfa) 2 Puff IH Q4H Levothyroxine Sodium (Levothyroxine 50 Mcg Tab) 50 Mcg PO DAILY Sertraline HCl (Zoloft) 25 Mg PO DAILY Atenolol (Tenormin) 50 Mg PO DAILY Scopolamine HCl (Transderm-Scop) 1 Ea TD Q3D 3 Triamcinolone Acetonide (Nasacort Aq) 16.5 Gm NS BID 1 Amoxicillin/Clavulanate Potassium (Augmentin Xr 1000-62.5 Tab) 2 Each PO BID 40 Meclizine HCl (Antivert) 1 - 2 Tab PO Q 4-6 HOURS PRN 30 Promethazine HCl (Phenergan 25 Mg) 1 Tab PO QID PRN 10 [Levothyroxine] Naproxen Sodium (Anaprox Ds) 550 Mg PO BID PRN 10 Hydrocodone Bitartrate/Ibuprofen (Hydrocodone Bt-Ibuprofen Tab) 1 Tab PO Q6H PRN Hydroxyzine Pamoate (Vistaril) 25 Mg PO DAILY PRN Ondansetron HCl (Zofran Oral Dissolve) 4 Mg PO Q4H 5 Response Recorded Date/Time Status not known Unknown Results Test Date Result Interp. Ref. Range Activated Partial Thromboplast Time June 18, 2012 10: 05pm 29 SEC N 24-35 Alanine Aminotransferase (ALT/SGPT) June 18, 2012 10: 05pm 44 U/L N 30-65 Albumin June 18, 2012 10:05pm 4.5 G/ DL N 3.4-5.0 Alkaline Phosphatase June 18, 2012 10:05pm 130 U/L N 50-136 Amylase Level January 19, 2012 6:57pm 50 U/L N 25-115 Aspartate Amino Transf (AST/SGOT) June 18, 2012 10:05pm 23 U/L N 15-37 B-Type Natriuretic Peptide January 19, 2012 6:57pm 21.5 PG/ML N 5.0-100.0 BUN/Creatinine Ratio June 18, 2012 10:05pm 13 - Band Neutrophils May 04, 2011 7:45pm 0 % - Basophils # (Auto) June 18, 2012 10:05pm 0.1 10^3/uL N 0.0-0.1 Basophils % (Manual) May 04, 2011 7:45pm 0 % - Basophils (%) (Auto) June 18, 2012 10:05pm 1 % N 0-10 Blood Urea Nitrogen June 18, 2012 10:05pm 10 MG/DL N 7-18 Calcium Level June 18, 2012 10:05pm 9.1 MG/DL N 8.5-10.1 Carbon Dioxide Level June 18, 2012 10:05pm 30 MMOL/L N 21-32 Chlamydia/GC DNA Probe Source July 13, 2011 9:05pm URINE - Chloride Level June 18, 2012 10:05pm 100 MMOL/L L 101-110 Cholesterol Level January 28, 2012 7:11am 119 MG/DL N -200 Creatine Kinase MB June 18, 2012 10:05pm 1.5 NG/ML N 0.0-3.6 Creatinine June 18, 2012 10:05pm 0.8 MG/DL N 0.6-1.3 D-Dimer February 20, 2012 8:03pm 0.40 UG/ML N 0.00-0.49 Eosinophils # (Auto) June 18, 2012 10:05pm 0.4 10^3/uL H 0.0-0.3 Eosinophils % (Manual) May 04, 2011 7:45pm 2 % - Eosinophils (%) (Auto) June 18, 2012 10:05pm 6 % N 0-10 Free Thyroxine January 28, 2012 10:30am 3.63 NG/DL PH 0.59-1.17 Free Triiodothyronine January 28, 2012 10:30am 13.5 H PG/ML - Glucose Level June 18, 2012 10:05pm 85 MG/DL N 74-106 HDL Cholesterol January 28, 2012 7:11am 54 MG/DL N 35-60 Hematocrit June 18, 2012 10:05pm 46 % N 40-54 Hemoglobin June 18, 2012 10:05pm 15.3 G/DL N 13.3-17.7 LDL Cholesterol January 28, 2012 7:11am 58 MG/DL N 0-129 Lipase January 19, 2012 6:57pm 113 U/L N 73-393 Lymphocytes # (Auto) June 18, 2012 10:05pm 1.9 X 10^3 N 1.0-4.0 Lymphocytes % (Manual) May 04, 2011 7:45pm 46 % - Lymphocytes (%) (Auto) June 18, 2012 10:05pm 25 % N 12-44 Magnesium Level June 18, 2012 10:05pm 1.9 MG/DL N 1.8-2.4 Mean Corpuscular Hemoglobin June 18, 2012 10:05pm 31 PG N 25-34 Mean Corpuscular Hemoglobin Concent June 18, 2012 10: 05pm 34 G/DL N 32-36 Mean Corpuscular Volume June 18, 2012 10:05pm 92 FL N 80-99 Mean Platelet Volume June 18, 2012 10:05pm 9.7 FL N 7.4-10.4 Monocytes # (Auto) June 18, 2012 10:05pm 0.3 X 10^3 N 0.0-1.0 Monocytes % (Manual) May 04, 2011 7:45pm 4 % - Monocytes (%) (Auto) June 18, 2012 10:05pm 4 % N 0-12 Myoglobin October 30, 2011 4:12pm 26 UG/L N 10-92 Neutrophils # (Auto) June 18, 2012 10:05pm 4.7 X 10^3 N 1.8-7.8 Neutrophils % (Manual) May 04, 2011 7:45pm 48 % - Neutrophils (%) (Auto) June 18, 2012 10:05pm 64 % N 42-75 Platelet Count June 18, 2012 10:05pm 296 10^3/uL N 130-400 Potassium Level June 18, 2012 10:05pm 3.8 MMOL/L N 3.6-5.0 Prothromb Time International Ratio June 18, 2012 10:05pm 0.9 N 0.8-1.4 Prothrombin Time June 18, 2012 10:05pm 12.4 SEC N 12.2-14.7 Red Blood Count June 18, 2012 10:05pm 4.97 10^6/uL N 4.35-5.85 Red Cell Distribution Width June 18, 2012 10:05pm 13.5 % N 10.0-14.5 Sodium Level June 18, 2012 10:05pm 136 MMOL/L N 135-145 TSH [place] Testing June 18, 2012 10:05pm 2.75 UIU/ML N 0.34-5.60 Thyroid Stimulating Hormone (TSH) January 27, 2012 11:02pm < 0.01 UIU/ML L 0.34- 5.60 Total Bilirubin June 18, 2012 10:05pm 0.8 MG/DL N 0.0-1.0 Total Creatine Kinase June 18, 2012 10:05pm 135 U/L N 1-205 Total Protein June 18, 2012 10:05pm 9.0 G/DL H 6.4-8.2 Triglycerides Level January 28, 2012 7:11am 35 MG/DL N 30.0-150.0 Troponin I June 18, 2012 10:05pm < 0.10 NG/ML 0.00-0.10 Ur Tricyclic Antidepressants Screen June 18, 2012 11: 03pm NEGATIVE - Urine Amphetamines Screen June 18, 2012 11:03pm NEGATIVE - Urine Bacteria December 23, 2011 6:29pm NEGATIVE - Urine Barbiturates Screen June 18, 2012 11:03pm NEGATIVE - Urine Benzodiazepines Screen June 18, 2012 11:03pm NEGATIVE - Urine Bilirubin December 23, 2011 6:29pm NEGATIVE - Urine Casts December 23, 2011 6:29pm NONE - Urine Clarity December 23, 2011 6:29pm CLEAR - Urine Cocaine Screen June 18, 2012 11:03pm NEGATIVE - Urine Color December 23, 2011 6:29pm YELLOW - Urine Crystals December 23, 2011 6:29pm NONE - Urine Culture Indicated December 23, 2011 6:29pm NO - Urine Glucose (UA) December 23, 2011 6:29pm NEGATIVE - Urine Ketones December 23, 2011 6:29pm NEGATIVE - Urine Leukocyte Esterase December 23, 2011 6:29pm NEGATIVE - Urine Methamphetamines Screen June 18, 2012 11:03pm NEGATIVE - Urine Mucus December 23, 2011 6:29pm NEGATIVE - Urine Nitrite December 23, 2011 6:29pm NEGATIVE - Urine Opiates Screen June 18, 2012 11:03pm NEGATIVE - Urine Phencyclidine Screen June 18, 2012 11:03pm NEGATIVE - Urine Propoxyphene Screen June 18, 2012 11:03pm NEGATIVE - Urine Protein December 23, 2011 6:29pm NEGATIVE - Urine RBC December 23, 2011 6:29pm NONE / HPF - Urine Specific [place] December 23, 2011 6:29pm 1.010 L - Urine Squamous Epithelial Cells December 23, 2011 6:29pm RARE - Urine Urobilinogen December 23, 2011 6:29pm NORMAL MG/DL - Urine WBC December 23, 2011 6:29pm NONE / HPF - Urine pH December 23, 2011 6:29pm 7.0 - VLDL Cholesterol January 28, 2012 7:11am 7 MG/DL N 5-40 White Blood Count June 18, 2012 10:05pm 7.4 10^3/uL N 4.3-11.0 Serum Alcohol January 19, 2012 6:57pm < 5 MG/DL -5 Ur Neisseria gonorrhoeae DNA (PCR) July 13, 2011 9:05pm NEG - Lab Scanned Report January 27, 2012 11:58pm LAB Reports [id number] - Estimat Glomerular Filtration Rate June 18, 2012 10:05pm > 60 - Urine Oxycodone Screen June 18, 2012 11:03pm NEGATIVE - Blood Morphology Comment May 04, 2011 7:45pm NORMAL - Urine Methadone Screen June 18, 2012 11:03pm NEGATIVE - Creatine Kinase January 28, 2012 11:35am 57 U/L N 1-205 Urine Cannabinoids Screen June 18, 2012 11:03pm NEGATIVE - Urine Chlamydia/GC DNA Probe July 13, 2011 9:05pm NEG - Urine Buprenorphine June 18, 2012 11:03pm NEGATIVE - Cardiac Panel Pathologist Review January 27, 2012 11:02pm SEE CARDIAC PATH REV - Urine RBC (Auto) December 23, 2011 6:29pm NEGATIVE - Encounters Encounter Location Date/Time Departed Emergency Room [facility] 01/21 9:53pm Discharged Inpatient [facility] 11:40pm
--- OUTSIDE RECORDS SUMMARY | 2018-04-02 21:05 | XMS REPORT | Continuity of Care Document ---
Author Author [facility] Address Unknown Phone Unavailable Allergies Active Description Code Type Severity Reaction Onset Reported/Identified Relationship to Patient Clinical Status Yes NO KNOWN DRUG ALLERGIES NO KNOWN DRUG ALLERG UNKNOWN Yes NO KNOWN DRUG ALLERGIES UNKNOWN NO KNOWN DRUG ALLERG Yes No Known Drug Allergies [id number] Drug Allergy Unknown N/A 05/04/2011 Medications Medication Packaging Start Date Stop Date Route Dosage Sig ALBUTEROL SVN 2.5MG/3CC LIQ 2.5 MG (PROVENTIL YESI 2.5MG/3CC) MG 07/03/2016 07/03/2016 ONCE&2307 PREDNISONE TAB 20 MG (DELTASONE) MG 07/03/2016 07/03/2016 ONCE&2307 ONDANSETRON TAB 4 MG (ZOFRAN) MG 07/03/2016 PRN ONCE PREDNISONE TAB 10 MG (DELTASONE) MG 07/03/2016 07/03/2016 ONCE&2308 POTASSIUM CHLORIDE TAB 20 MEQ (K-DUR) MEQ 07/03/2016 07/03/2016 ONCE&2342 AZITHROMYCIN TAB 500 MG (ZITHROMAX) MG 07/04/2016 07/04/2016 ONCE&0012 KETOROLAC VIAL INJ 30 MG/CC (TORADOL VIAL) MG 10/09/2016 10/09/2016 ONCE&2205 NORMAL SALINE 1000CC IV BAG INJ 0.9 % (NS 1000CC IV BAG) ml 10/09/2016 10/09/2016 ONCE&2205 ALBUTEROL SVN 2.5MG/3CC LIQ 2.5 MG (PROVENTIL YESI 2.5MG/3CC) MG 01/20/2018 01/20/2018 ONCE&1428 AMOX-CLAV 875/125 TAB 875 MG-125MG (AUGMENTIN) TAB 01/20/2018 01/20/2018 ONCE&1442 PREDNISONE TAB 10 MG (DELTASONE) MG 01/20/2018 01/20/2018 ONCE&1550 METHYLPREDNISOLONE VIAL INJ 125 MG/2CC (SOLU-MEDROL VIAL) MG 02/19/2018 02/19/2018 ONCE&1705 Problems Date Dx Coded Attending Type Code Diagnosis Diagnosed By 10/05/2011 BELKYS PENA DO 578.1 Blood In Stool 10/05/2011 BELKYS PENA DO 599.70 Hematuria Unspecified 10/05/2011 BELKYS PENA DO 780.4 Dizziness And Giddiness 10/05/2011 BELKYS PENA DO 784.0 Headache 10/05/2011 BELKYS PENA DO 790.4 Abnormal Lft (elevated) 10/05/2011 BELKYS PENA DO 799.22 Irritability 10/05/2011 BELKYS PENA DO V58.69 LONG-TERM (CURRENT) USE OF OTHER MEDICATIONS 10/05/2011 BELKYS PENA DO 578.1 Blood In Stool 10/05/2011 BELKYS PENA DO 599.70 Hematuria Unspecified 10/05/2011 BELKYS PENA DO 780.4 Dizziness And Giddiness 10/05/2011 BELKYS PENA DO 784.0 Headache 10/05/2011 BELKYS PENA DO 790.4 Abnormal Lft (elevated) 10/05/2011 BELKYS PENA DO 799.22 Irritability 10/05/2011 BELKYS PENA DO V58.69 LONG-TERM (CURRENT) USE OF OTHER MEDICATIONS [...] LONG-TERM (CURRENT) USE OF OTHER MEDICATIONS 10/05/2011 JUNAID TELLO APRNINA R 578.1 Blood In Stool 10/05/2011 OMER EASTMAN BOBBI R 599.70 Hematuria Unspecified 10/05/2011 OMER EASTMAN BOBBI R 780.4 Dizziness And Giddiness 10/05/2011 OMER EASTMAN BOBBI R 784.0 Headache 10/05/2011 OMER EASTMAN BOBBI R 790.4 Abnormal Lft (elevated) 10/05/2011 OMER EASTMAN BOBBI R 799.22 Irritability 10/05/2011 OMER EASTMAN BOBBI R V58.69 LONG-TERM (CURRENT) USE OF OTHER MEDICATIONS 10/05/2011 OMER EASTMAN BOBBI R 578.1 Blood In Stool 10/05/2011 OMER EASTMAN BOBBI R 599.70 Hematuria Unspecified 10/05/2011 OMER EASTMAN BOBBI R 780.4 Dizziness And Giddiness 10/05/2011 OMER EPIDEMIOLOGY INTERN, BOBBI R 784.0 Headache 10/05/2011 OMER EPIDEMIOLOGY INTERN, BOBBI R 790.4 Abnormal Lft (elevated) 10/05/2011 OMER EPIDEMIOLOGY INTERN, BOBBI R 799.22 Irritability 10/05/2011 OMER EPIDEMIOLOGY INTERN, BOBBI R V58.69 LONG-TERM (CURRENT) USE OF OTHER MEDICATIONS 10/05/2011 OMER EPIDEMIOLOGY INTERN, BOBBI R 578.1 Blood In Stool 10/05/2011 OMER EPIDEMIOLOGY INTERN, BOBBI R 599.70 Hematuria Unspecified 10/05/2011 OMER EPIDEMIOLOGY INTERN, BOBBI R 780.4 Dizziness And Giddiness 10/05/2011 OMER EPIDEMIOLOGY INTERN, BOBBI R 784.0 Headache 10/05/2011 OMER EPIDEMIOLOGY INTERN, BOBBI R 790.4 Abnormal Lft (elevated) 10/05/2011 OMER BOYERN, BOBBI R 799.22 Irritability 10/05/2011 OMER BOYERN, BOBBI R V58.69 LONG-TERM (CURRENT) USE OF [...] (CURRENT) USE OF OTHER MEDICATIONS 10/05/2011 PENA DO BELKYS K 578.1 Blood In Stool 10/05/2011 PENA DO BELKYS K 599.70 Hematuria Unspecified 10/05/2011 PENA DO BELKYS K 780.4 Dizziness And Giddiness 10/05/2011 PENA DO BELKYS K 784.0 Headache 10/05/2011 BELKYS PENA DO 790.4 Abnormal Lft (elevated) 10/05/2011 BELKYS PENA DO 799.22 Irritability 10/05/2011 BELKYS PENA DO V58.69 LONG-TERM (CURRENT) USE OF OTHER MEDICATIONS 10/12/2011 BELKYS PENA DO 300.00 AN ANXIETY UNSPEC 10/12/2011 BELKYS PENA DO K 300.00 AN ANXIETY UNSPEC 10/12/2011 300.00 AN ANXIETY UNSPEC 10/12/2011 300.00 AN ANXIETY UNSPEC 10/12/2011 300.00 AN ANXIETY UNSPEC 10/12/2011 300.00 AN ANXIETY UNSPEC 10/12/2011 MICHELLE MOLINA APRN 300.00 AN ANXIETY UNSPEC 10/12/2011 BOBBI TELLO APRN R 300.00 AN ANXIETY UNSPEC 10/12/2011 JUNAID TELLO APRNINA R 300.00 AN ANXIETY UNSPEC 10/12/2011 JUNAID TELLO APRNINA R 300.00 AN ANXIETY UNSPEC 10/12/2011 KIANNA MENESES MD 300.00 AN ANXIETY UNSPEC 10/12/2011 KIANNA MENESES MD 300.00 AN ANXIETY UNSPEC 10/12/2011 KIANNA MENESES MD 300.00 AN ANXIETY UNSPEC 10/12/2011 KIANNA MENESES MD 300.00 AN ANXIETY UNSPEC 10/12/2011 KIANNA MENESES MD 300.00 AN ANXIETY UNSPEC 10/12/2011 BELKYS PENA DO 300.00 AN ANXIETY UNSPEC 10/15/2011 BELKYS PENA DO 242.90 HYPERTHYROIDISM 10/15/2011 BELKYS PENA DO 242.90 HYPERTHYROIDISM 10/15/2011 242.90 HYPERTHYROIDISM 10/15/2011 242.90 HYPERTHYROIDISM 10/15/2011 242.90 HYPERTHYROIDISM 10/15/2011 242.90 HYPERTHYROIDISM 10/15/2011 MICHELLE MOLINA APRN 242.90 HYPERTHYROIDISM 10/15/2011 BOBBI TELLO APRN R 242.90 HYPERTHYROIDISM 10/15/2011 BOBBI TELLO APRN R 242.90 HYPERTHYROIDISM 10/15/2011 OMER EASTMAN BOBBI R 242.90 HYPERTHYROIDISM 10/15/2011 KIANNA MENESES MD 242.90 HYPERTHYROIDISM 10/15/2011 KIANNA MENESES MD 242.90 HYPERTHYROIDISM 10/15/2011 KIANNA MENESES MD 242.90 HYPERTHYROIDISM 10/15/2011 KIANNA MENESES MD 242.90 HYPERTHYROIDISM 10/15/2011 KIANNA MENESES MD 242.90 HYPERTHYROIDISM 10/15/2011 BELKYS PENA DO 242.90 HYPERTHYROIDISM 10/19/2011 BELKYS PENA DO K 786.50 Chest Pain 10/19/2011 BELKYS PENA DO K 786.50 Chest Pain 10/19/2011 786.50 Chest Pain 10/19/2011 786.50 Chest Pain 10/19/2011 786.50 Chest Pain 10/19/2011 786.50 Chest Pain 10/19/2011 JESSE EASTMAN, MICHELLE Muñoz 786.50 Chest Pain 10/19/2011 OMER EPIDEMIOLOGY INTERN, BOBBI R 786.50 Chest Pain 10/19/2011 OMER EASTMAN, BOBBI R 786.50 Chest Pain 10/19/2011 OMER EASTMAN, BOBBI R 786.50 Chest Pain 10/19/2011 KIANNA MENESES MD 786.50 Chest Pain 10/19/2011 KIANNA MENESES MD 786.50 Chest Pain 10/19/2011 KIANNA MENESES MD 786.50 Chest Pain 10/19/2011 KIANNA MENESES MD 786.50 Chest Pain 10/19/2011 KIANNA MENESES MD 786.50 Chest Pain 10/19/2011 BELKYS PENA DO 786.50 Chest Pain 10/24/2011 BELKYS PENA DO 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 10/24/2011 BELKYS PENA DO 311 DEPRESSIVE DISORDER NOT ELSEWHERE CLASSIFIED 10/24/2011 BELKYS PENA DO 401.1 HYPERTENSION, BENIGN ESSENTIAL 10/24/2011 BELKYS PENA DO 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 10/24/2011 BELKYS PENA DO 311 DEPRESSIVE DISORDER NOT ELSEWHERE CLASSIFIED 10/24/2011 [...] APRN 401.1 HYPERTENSION, BENIGN ESSENTIAL 10/24/2011 OMER EASTMAN BOBBI R 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 10/24/2011 OMER EASTMAN BOBBI R 311 DEPRESSIVE DISORDER NOT ELSEWHERE CLASSIFIED 10/24/2011 OMER EASTMAN BOBBI R 401.1 HYPERTENSION, BENIGN ESSENTIAL 10/24/2011 OMER EASTMAN BOBBI R 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 10/24/2011 OMER EASTMAN BOBBI R 311 DEPRESSIVE DISORDER NOT ELSEWHERE CLASSIFIED 10/24/2011 OMER EASTMAN BOBBI R 401.1 HYPERTENSION, BENIGN ESSENTIAL 10/24/2011 OMER EASTMAN BOBBI R 242.00 TOXIC 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 [...] PANCHAL BELKYS K 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 01/02/2012 ANNEL PENA DOA K 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 01/02/2012 244.0 Postsurgical [...] KIANNA MENESES MD 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 01/02/2012 BELKYS PENA DO K 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 01/08/2012 Ot 242.90 [...] TOX DIF GOITER NO CRISIS 03/15/2012 PENA DO, BELKYS K 461.9 SINUSITIS [...] MOLINA APRN 466.0 Bronchitis, Acute 03/15/2012 OMER EPIDEMIOLOGY INTERN, BOBBI R 461.9 SINUSITIS ACUTE 03/15/2012 OMER EPIDEMIOLOGY INTERN, BOBBI R 466.0 Bronchitis, Acute 03/15/2012 OMER EPIDEMIOLOGY INTERN, BOBBI R 461.9 SINUSITIS ACUTE 03/15/2012 OMER EPIDEMIOLOGY INTERN, BOBBI R 466.0 Bronchitis, Acute 03/15/2012 OMER EPIDEMIOLOGY INTERN, BOBBI R 461.9 SINUSITIS ACUTE 03/15/2012 OMER EPIDEMIOLOGY INTERN, BOBBI R 466.0 Bronchitis, Acute 03/15/2012 KIANNA [...] KIANNA MENESES MD 466.0 Bronchitis, Acute 03/15/2012 BECKY PANCHAL BELKYS K 461.9 SINUSITIS ACUTE 03/15/2012 BECKY PANCHAL BELKYS K 466.0 Bronchitis, Acute 05/14/2012 PENA DO BELKYS K 244.9 HYPOTHYROIDISM 05/14/2012 BECKY PANCHAL BELKYS K 244.9 HYPOTHYROIDISM 05/14/2012 244.9 HYPOTHYROIDISM 05/14/2012 244.9 HYPOTHYROIDISM 05/14/2012 244.9 HYPOTHYROIDISM 05/14/2012 244.9 HYPOTHYROIDISM 05/14/2012 MICHELLE MOLINA APRN 244.9 HYPOTHYROIDISM 05/14/2012 BOBBI TELLO APRN R 244.9 HYPOTHYROIDISM 05/14/2012 BOBBI TELLO APRN R 244.9 HYPOTHYROIDISM 05/14/2012 JUNAID TELLO APRNINA R 244.9 HYPOTHYROIDISM 05/14/2012 KIANNA MENESES MD 244.9 HYPOTHYROIDISM 05/14/2012 KIANNA MENESES MD 244.9 HYPOTHYROIDISM 05/14/2012 KIANNA MENESES MD 244.9 HYPOTHYROIDISM 05/14/2012 KIANNA MENESES MD 244.9 HYPOTHYROIDISM 05/14/2012 KIANNA MENESES MD 244.9 HYPOTHYROIDISM 05/14/2012 BECKY PANCHAL BELKYS K 244.9 HYPOTHYROIDISM 05/30/2012 Ot 276.50 VOLUME DEPLETION, UNSPECIFIED 05/30/2012 Ot 787.03 VOMITING ALONE 05/30/2012 Ot 789.07 ABDOMINAL PAIN, GENERALIZED 06/13/2012 BECKY DO BELKYS K 466.0 BRONCHITIS, ACUTE 06/13/2012 PENA DO BELKYS K 569.3 RECTAL BLEEDING 06/13/2012 BECKY PANCHAL BELKYS K 786.07 WHEEZING 06/13/2012 PENA DO BELKYS K 786.09 DYSPNEA 06/13/2012 PENA DO, BELKYS K 786.2 COUGH 06/13/2012 PENA DO, BELKYS K 466.0 BRONCHITIS, ACUTE 06/13/2012 BECKY PANCHAL, BELKYS K 569.3 RECTAL BLEEDING 06/13/2012 PENA , BELKYS K 786.07 WHEEZING 06/13/2012 PENA DO, [...] 466.0 BRONCHITIS, ACUTE 06/13/2012 MICHELLE MOLINA APRN M 569.3 RECTAL BLEEDING 06/13/2012 MICHELLE MOLINA APRN 786.07 WHEEZING 06/13/2012 MICHELLE MOLINA APRN M 786.09 DYSPNEA 06/13/2012 MICHELLE MOLINA APRN M 786.2 COUGH 06/13/2012 OMER EPIDEMIOLOGY INTERN, BOBBI R 466.0 BRONCHITIS, ACUTE 06/13/2012 OMER EPIDEMIOLOGY INTERN, BOBBI R 569.3 RECTAL BLEEDING 06/13/2012 OMER EPIDEMIOLOGY INTERN, BOBBI R 786.07 WHEEZING 06/13/2012 OMER EPIDEMIOLOGY INTERN, BOBBI R 786.09 DYSPNEA 06/13/2012 OMER EPIDEMIOLOGY INTERN, BOBBI R 786.2 COUGH 06/13/2012 OMER EPIDEMIOLOGY INTERN, BOBBI R 466.0 BRONCHITIS, ACUTE 06/13/2012 OMER EPIDEMIOLOGY INTERN, BOBBI R 569.3 RECTAL BLEEDING 06/13/2012 OMER EPIDEMIOLOGY INTERN, BOBBI R 786.07 WHEEZING 06/13/2012 OMER EPIDEMIOLOGY INTERN, BOBBI R 786.09 DYSPNEA 06/13/2012 OMER EPIDEMIOLOGY INTERN, BOBBI R 786.2 COUGH 06/13/2012 OMER EPIDEMIOLOGY INTERN, BOBBI R 466.0 BRONCHITIS, ACUTE 06/13/2012 OMER EPIDEMIOLOGY INTERN, BOBBI R 569.3 RECTAL BLEEDING 06/13/2012 OMER EPIDEMIOLOGY INTERN, BOBBI R 786.07 WHEEZING 06/13/2012 OMER EPIDEMIOLOGY INTERN, BOBBI R 786.09 DYSPNEA 06/13/2012 OMER EPIDEMIOLOGY INTERN, BOBBI R 786.2 COUGH 06/13/2012 ZAIRA ROBERTS, KIANNA D 466.0 BRONCHITIS, ACUTE 06/13/2012 ZAIRA ROBERTS, KIANNA D 569.3 RECTAL BLEEDING 06/13/2012 ZAIRA ROBERTS, KIANNA D 786.07 WHEEZING 06/13/2012 ZAIRA ROBERTS, KIANNA D 786.09 DYSPNEA 06/13/2012 ZAIRA ROBERTS, KIANNA D 786.2 COUGH 06/13/2012 ZAIRA ROBERTS, KIANNA D 466.0 BRONCHITIS, ACUTE 06/13/2012 ZAIRA ROBERTS, KIANNA D 569.3 RECTAL BLEEDING 06/13/2012 ZAIRA ROBERTS, KIANNA D 786.07 WHEEZING 06/13/2012 ZAIRA ROBERTS, KIANNA D 786.09 DYSPNEA 06/13/2012 ZAIRA ROBERTS, KIANNA D 786.2 COUGH 06/13/2012 ZAIRA ROBERTS, KIANNA D 466.0 BRONCHITIS, ACUTE 06/13/2012 ZAIRA ROBERTS, KIANNA D 569.3 RECTAL BLEEDING 06/13/2012 ZAIRA ROBERTS, KIANNA D 786.07 WHEEZING 06/13/2012 ZAIRA ROBERTS, KIANNA D 786.09 DYSPNEA 06/13/2012 ZAIRA ROBERTS, KIANNA D 786.2 COUGH 06/13/2012 ZAIRA ROBERTS, KIANNA D 466.0 BRONCHITIS, ACUTE 06/13/2012 ZAIRA ROBERTS, KIANNA D 569.3 RECTAL BLEEDING 06/13/2012 ZAIRA ROBERTS, KIANNA D 786.07 WHEEZING 06/13/2012 ZAIRA ROBERTS, KIANNA D 786.09 DYSPNEA 06/13/2012 ZAIRA ROBERTS, KIANNA D 786.2 COUGH 06/13/2012 ZAIRA ROBERTS, KIANNA D 466.0 BRONCHITIS, ACUTE 06/13/2012 ZAIRA ROBERTS, KIANNA D 569.3 RECTAL BLEEDING 06/13/2012 KIANNA MENESES MD [...] TELLO APRN R 786.50 CHEST PAIN 08/07/2012 JUNAID TELLO APRNINA R 786.50 CHEST PAIN 08/07/2012 OMER EASTMAN, [...] CCDS Ot 786.50 CHEST PAIN NOS 11/12/2012 EMILY LEACH MD, FACC FACP CCDS Ot V17.49 FAMILY HISTORY OF OTHER CARDIOVASCULAR D 11/12/2012 BUBBA ROBERTS FACC ALI FACP CCDS Ot V58.69 OTH MED,LT,CURRENT USE 06/06/2013 BOBBI TELLO APRN R 787.01 NAUSEA WITH VOMITING 06/06/2013 BOBBI TELLO APRN R 787.60 FULL INCONTINENCE OF FECES 06/06/2013 [...] HYPOXIA 07/13/2014 KIANNA MENESES MD 530.81 GERD 07/04/2016 EVETTE CERVANTES W 276.8 HYPOPOTASSEMIA 07/04/2016 EVETTE CERVANTES A 466.0 ACUTE BRONCHITIS 07/04/2016 EVETTE CERVANTES W 493.92 ASTHMA, UNSPECIFIED WITH (ACUTE) EXACERBATION 07/04/2016 EVETTE CERVANTES E87.6 HYPOKALEMIA 07/04/2016 EVETTE CERVANTES A J20.9 ACUTE BRONCHITIS, UNSPECIFIED 07/04/2016 EVETTE CERVANTES W J45.901 UNSPECIFIED ASTHMA WITH (ACUTE) EXACERBATION 10/09/2016 EVETTE CERVANTES A 668.81 OTHER COMPLICATIONS OF ANESTHESIA OR OTHER SEDATION IN LABOR AND DELIVERY, DELIVERED, WITH OR WITHOUT MENTION OF ANTEPARTUM CONDITION 10/09/2016 EVETTE CERVANTES W 780.79 OTHER MALAISE AND FATIGUE 10/09/2016 EVETTE CERVANTES W 786.5 CHEST PAIN 10/09/2016 EVETTE CERVANTES W 848.8 OTHER SPECIFIED SITES OF SPRAINS AND STRAINS 10/09/2016 EVETTE CERVANTES R07.89 OTHER CHEST PAIN 10/09/2016 EVETTE CERVANTES A R51 HEADACHE 10/09/2016 EVETTE CERVANTES R53.83 OTHER FATIGUE 10/09/2016 EVETTE CERVANTES S39.012A STRAIN OF MUSCLE, FASCIA AND TENDON OF LOWER BACK, INIT 05/10/2017 Ot 242.00 TOX DIF GOITER NO CRISIS 05/10/2017 Ot 242.00 TOX DIF GOITER NO CRISIS 05/10/2017 Ot 242.90 THYROTOX NOS NO CRISIS 05/10/2017 Ot 242.00 TOX DIF GOITER NO CRISIS 05/10/2017 SARAHI SAMUEL MD Ot 397.0 TRICUSPID VALVE DISEASE 05/10/2017 SARAHI SAMUEL MD Ot 424.0 MITRAL VALVE DISORDER 05/10/2017 JIMMIE ROBERTS, SARAHI Ot 786.50 CHEST PAIN NOS 05/10/2017 BUBBA ROBERTS FACC, ALI FACP CCDS Ot 786.50 CHEST PAIN NOS 05/10/2017 EDWIN PETER MD Ot R06.00 DYSPNEA, UNSPECIFIED 05/10/2017 Ot 242.00 TOX DIF GOITER NO CRISIS 05/10/2017 Ot 242.00 TOX DIF GOITER NO CRISIS 05/10/2017 Ot 242.90 THYROTOX NOS NO CRISIS 05/10/2017 Ot 242.00 TOX DIF GOITER NO CRISIS 05/10/2017 JIMMIE ROBERTS, SARAHI Ot 397.0 TRICUSPID VALVE DISEASE 05/10/2017 JIMMIE ROBERTS, SARAHI Ot 424.0 MITRAL VALVE DISORDER 05/10/2017 JIMMIE ROBERTS, SARAHI Ot 786.50 CHEST PAIN NOS 05/10/2017 BUBBA ROBERTS FACC, ALI FACP CCDS Ot 786.50 CHEST PAIN NOS 05/11/2017 Ot 242.00 TOX DIF GOITER NO CRISIS 05/11/2017 Ot 242.00 TOX DIF GOITER NO CRISIS 05/11/2017 Ot 242.90 THYROTOX NOS NO CRISIS 05/11/2017 Ot 242.00 TOX DIF GOITER NO CRISIS 05/11/2017 JIMMIE ROBERTS, SARAHI Ot 397.0 TRICUSPID VALVE DISEASE 05/11/2017 JIMMIE ROBERTS, SARAHI Ot 424.0 MITRAL VALVE DISORDER 05/11/2017 JIMMIE ROBERTS, SARAHI Ot 786.50 CHEST PAIN NOS 05/11/2017 BUBBA [...] MD Ot 397.0 TRICUSPID VALVE DISEASE 05/11/2017 JIMMIE ROBERTS, SARAHI Ot 424.0 MITRAL VALVE DISORDER 05/11/2017 SARAHI SAMUEL MD Ot 786.50 CHEST PAIN NOS 05/11/2017 BUBBA ROBERTS FACEva, ALI OBEDP CCDS Ot 786.50 CHEST PAIN NOS 06/03/2017 CALI ROBERTS, EARNESTINE José Ot E05.90 THYROTOXICOSIS, UNSP WITHOUT THYROTOXIC 06/03/2017 EARNESTINE LEIVA MD Ot F41.9 ANXIETY DISORDER, UNSPECIFIED 06/03/2017 CALI ROBERTS, EARNESTINE José Ot K62.5 HEMORRHAGE OF ANUS AND RECTUM 06/03/2017 CALI ROBERTS, EARNESTINE José Ot K64.8 OTHER HEMORRHOIDS 06/10/2017 CHELY PETERS APRN Ot G47.33 OBSTRUCTIVE SLEEP APNEA (ADULT) (PEDIATR 06/16/2017 CHELY PETERS APRN Ot G47.33 OBSTRUCTIVE SLEEP APNEA (ADULT) (PEDIATR 06/21/2017 CHELY PETERS APRN Ot J45.909 UNSPECIFIED ASTHMA, UNCOMPLICATED 06/25/2017 Ot 242.00 TOX DIF GOITER NO CRISIS 06/25/2017 Ot 242.90 THYROTOX NOS NO CRISIS 06/25/2017 Ot 242.00 TOX DIF GOITER NO CRISIS 06/25/2017 SARAHI SAMUEL MD Ot 397.0 TRICUSPID VALVE DISEASE 06/25/2017 SARAHI SAMUEL MD Ot 424.0 MITRAL VALVE DISORDER 06/25/2017 SARAHI SAMUEL MD Ot 786.50 CHEST PAIN NOS 06/25/2017 BUBBA ROBERTS FACEva, ALI OBEDP CCDS Ot 786.50 CHEST PAIN NOS 06/25/2017 CHELY PETERS APRN Ot J45.909 UNSPECIFIED ASTHMA, UNCOMPLICATED 06/25/2017 CHELSY MORALES Ot E03.9 HYPOTHYROIDISM, UNSPECIFIED 06/25/2017 CHELSY MORALES Ot J30.89 OTHER ALLERGIC RHINITIS 06/25/2017 CHELSY MORALES Ot J45.50 SEVERE PERSISTENT ASTHMA, UNCOMPLICATED 07/03/2017 CHELY PETERS EPIDEMIOLOGY INTERN Ot J42 UNSPECIFIED CHRONIC BRONCHITIS 07/03/2017 CHELY PETERS EPIDEMIOLOGY INTERN Ot J45.909 UNSPECIFIED ASTHMA, UNCOMPLICATED 07/08/2017 CHELY PETERS EPIDEMIOLOGY INTERN Ot J42 UNSPECIFIED CHRONIC BRONCHITIS 07/08/2017 CHELY PETERS EPIDEMIOLOGY INTERN Ot J45.909 UNSPECIFIED ASTHMA, UNCOMPLICATED 07/19/2017 CHELY PETERS EPIDEMIOLOGY INTERN Ot J42 UNSPECIFIED CHRONIC BRONCHITIS 07/19/2017 CHELY PETERS EPIDEMIOLOGY INTERN Ot J45.909 UNSPECIFIED ASTHMA, UNCOMPLICATED 07/27/2017 KEIRA PENA EPIDEMIOLOGY INTERN Ot E05.90 THYROTOXICOSIS, UNSP WITHOUT THYROTOXIC 07/27/2017 KEIRA PENA APRN Ot F41.9 ANXIETY DISORDER, UNSPECIFIED 07/27/2017 KEIRA PENA APRN Ot J45.901 UNSPECIFIED ASTHMA WITH (ACUTE) EXACERBA 07/27/2017 KEIRA PENA APRN Ot R05 COUGH 07/27/2017 KEIRA PENA APRN Ot Z79.52 MCC (CURRENT) USE OF SYSTEMIC STER 07/27/2017 Ot 242.00 TOX DIF GOITER NO CRISIS 07/27/2017 Ot 242.90 THYROTOX NOS NO CRISIS 07/27/2017 Ot 242.00 TOX DIF GOITER NO CRISIS 07/27/2017 JIMMIE ROBERTS, SARAHI Ot 397.0 TRICUSPID VALVE DISEASE 07/27/2017 JIMMIE ROBERTS, SARAHI Ot 424.0 MITRAL VALVE DISORDER 07/27/2017 JIMMIE ROBERTS, SARAHI Ot 786.50 CHEST PAIN NOS 07/27/2017 BUBBA ROBERTS FAC, EMILY CORRALES CCDS Ot 786.50 CHEST PAIN NOS 07/27/2017 CHELY PETERS EPIDEMIOLOGY INTERN Ot J42 UNSPECIFIED CHRONIC BRONCHITIS 07/27/2017 CHELY PETERS EPIDEMIOLOGY INTERN Ot J45.909 UNSPECIFIED ASTHMA, UNCOMPLICATED 07/27/2017 CHELY PETERS EPIDEMIOLOGY INTERN Ot J45.909 UNSPECIFIED ASTHMA, UNCOMPLICATED 07/27/2017 CHELSY MORALES CEO AND FOUNDER Ot E03.9 HYPOTHYROIDISM, UNSPECIFIED 07/27/2017 CHELSY MORALES CEO AND FOUNDER Ot J30.89 OTHER ALLERGIC RHINITIS 07/27/2017 CHELSY MORALES CEO AND FOUNDER Ot J45.50 SEVERE PERSISTENT ASTHMA, UNCOMPLICATED 07/30/2017 KEIRA PENA APRN Ot E05.90 THYROTOXICOSIS, UNSP WITHOUT THYROTOXIC 07/30/2017 KEIRA PENA APRN Ot F41.9 ANXIETY DISORDER, UNSPECIFIED 07/30/2017 KEIRA PENA APRN Ot J45.901 UNSPECIFIED ASTHMA WITH (ACUTE) EXACERBA 07/30/2017 KEIRA PENA APRN Ot R05 COUGH 07/30/2017 KEIRA PENA APRN Ot Z79.52 MCC (CURRENT) USE OF SYSTEMIC STER 11/17/2017 KEIRA PENA APRN Ot E03.9 HYPOTHYROIDISM, UNSPECIFIED 11/17/2017 KEIRA PENA APRN Ot F41.9 ANXIETY DISORDER, UNSPECIFIED 11/17/2017 KEIRA PENA APRN Ot J45.901 UNSPECIFIED ASTHMA WITH (ACUTE) EXACERBA 11/17/2017 KEIRA PENA APRN Ot R06.02 SHORTNESS OF BREATH 11/17/2017 KEIRA PENA APRN Ot 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 11/17/2017 KEIRA PENA APRN Ot Z98.890 OTHER SPECIFIED POSTPROCEDURAL STATES 01/20/2018 EVETTE CERVANTES 465.8 ACUTE UPPER RESPIRATORY INFECTIONS OF OTHER MULTIPLE SITES 01/20/2018 EVETTE CERVANTES 491.21 OBSTRUCTIVE CHRONIC BRONCHITIS WITH (ACUTE) EXACERBATION 01/20/2018 EVETTE CERVANTES J06.9 ACUTE UPPER RESPIRATORY INFECTION, UNSPECIFIED 01/20/2018 EVETTE CERVANTES J44.1 CHRONIC OBSTRUCTIVE PULMONARY DISEASE W (ACUTE) EXACERBATION 02/19/2018 [place] Love 491.20 OBSTRUCTIVE CHRONIC BRONCHITIS, WITHOUT EXACERBATION 02/19/2018 [place] Love J44.9 CHRONIC OBSTRUCTIVE PULMONARY DISEASE, UNSPECIFIED Procedures Code Description [place] [address] ROUTINE VENIPUNCTURE 05/13/2012 37144 THERAPUTIC INJ SQ/IM 05/13/2012 J1040 DEPO MEDROL 80 MG INJ 05/13/2012 62367 TSH 05/14/2012 93011 XRAY CHEST 2 VIEW 06/13/2012 LIZETT KIDD 06/13/2012 64531 ROUTINE VENIPUNCTURE 08/07/2012 44065 XRAY CHEST 2 VIEW 08/07/2012 65813 CMP 08/07/2012 28124 LIPID PANEL 08/07/2012 35610 BNP 08/07/2012 16858 TSH 08/07/2012 71048 CBC 08/07/2012 87816 CRP HS (CARDIO) 08/07/2012 76743 EKG, TRACING (IN-HOUSE) 08/07/2012 85064 PULMONARY FUNCTION TEST (IN- HOUSE) 08/07/2012 IVON SARAHI SAMUEL 08/07/2012 46353 ECHO 2D 10/23/2012 16023 ROUTINE VENIPUNCTURE 11/15/2012 67529 TSH 11/15/2012 04355 OXIMETRY 11/15/2012 78752 OXIMETRY 11/22/2012 PULMONARY NUDUKWU, STACY 11/22/2012 93599 OXIMETRY 12/13/2012 74219 OXIMETRY 12/17/2012 46933 ROUTINE VENIPUNCTURE 06/06/2013 18405 INFLUENZA A & B (IN-HOUSE) 06/06/2013 24150 UA W/ CULTURE IF INDICATED 06/06/2013 27382 CBC 06/06/2013 45164 CMP 06/06/2013 7072324 GFR CALC (RESULT ONLY) 06/06/2013 45612 LIPASE 06/06/2013 72891 BNP 06/06/2013 53739 OXIMETRY 07/17/2013 Cardiolog Emily Leach 07/17/2013 56984 EKG, TRACING (IN-HOUSE) 09/24/2013 30160 ECHO 2D 10/08/2013 44564 XRAY CHEST 2 VIEW 10/22/2013 51868 OXIMETRY 01/19/2014 41600 ROUTINE VENIPUNCTURE 02/27/2014 42556 TSH 02/27/2014 Results Test Result Range CBC with Auto Diff - 07/03/16 23:10 Baso% 0.70 % 0.00-2.50 Eos 0.7 K/uL 0.0-0.7 Eos% 12.7 % 0.0-7.0 Hct 43.0 % 42.0-52.0 Hgb 14.6 g/dL 14.0-17.0 Lym 0.81 K/uL 0.60-3.40 Lym% 14.3 % 10.0-50.0 MCH 29.9 pg 27.0-31.2 MCHC 34.0 g/dL 32.0-36.0 MCV 87.9 fL 80.0-97.0 [place]% 7.2 % 0.0-12.0 MPV 10.1 fL 7.4-10.0 Miguel% 65.1 % 37.0-80.0 Plt 227 K/uL 150-400 RBC 4.89 M/uL 4.20-5.40 RDW 12.0 % 11.6-14.8 WBC 5.68 K/uL 5.00-10.00 Miguel 3.70 K/uL 2.00-6.90 [place] 0.4 K/uL 0.0-0.9 Baso 0.0 K/uL 0.0-0.2 Mycoplasma - 07/03/16 23:10 Mycoplasma Negative Negative Urinalysis - 07/03/16 23:40 Icotest Negative Negative Urine Volume Urine Volume Sufficient (10mL) Urine-Appearance Slightly Cloudy Clear Urine-Bacteria Trace Urine-Bilirubin 1+ Negative Urine-Blood Negative Negative Urine-Color Yellow Colorless-Lt. Yellow Urine-Epithelial Cells 0-5/HPF Urine-Glucose Negative Negative Urine-Ketones Trace Negative Urine-Leukocytes Negative Negative Urine-Mucus 3+ Urine-Nitrite Negative Negative Urine-Other Culture to follow Urine-pH 6.0 5-8.5 Urine-Protein 1+ Negative Urine-RBC Negative Urine-Specific [place] >=1.030 1.000-1.030 Urine-WBC 2-5/HPF Urobilinogen 1.0 E.U./dL 0.2-1.0 Urine Culture - 07/03/16 23:40 FINAL CULTURE RESULTS No Growth 48 hours MEDIA PLATED Setup at 00:06 on 07/04/2016 CULTURE SOURCE void CBC With Differential/Platelet - 08/22/16 09:48 WBC 9.7 x10E3/uL 3.4-10.8 RBC 5.25 x10E6/uL 4.14-5.80 Hemoglobin 16.0 g/dL 12.6-17.7 Hematocrit 46.8 % 37.5-51.0 MCV 89 fL 79-97 MCH 30.5 pg 26.6-33.0 MCHC 34.2 g/dL 31.5-35.7 RDW 13.4 % 12.3-15.4 Platelets 311 x10E3/uL 150-379 Neutrophils 77 % Lymphs 17 % Monocytes 5 % Eos 1 % Basos 0 % Neutrophils (Absolute) 7.3 x10E3/uL 1.4-7.0 Lymphs (Absolute) 1.7 x10E3/uL 0.7-3.1 Monocytes(Absolute) 0.5 x10E3/uL 0.1-0.9 Eos (Absolute) 0.1 x10E3/uL 0.0-0.4 Baso (Absolute) 0.0 x10E3/uL 0.0-0.2 Immature Granulocytes 0 % Immature Grans (Abs) 0.0 x10E3/uL 0.0-0.1 Comp. Metabolic Panel (14) - 08/22/16 09:48 Glucose, Serum 104 mg/dL 65-99 BUN 11 mg/dL 6-20 Creatinine, Serum 0.83 mg/dL 0.76-1.27 eGFR If NonAfricn Am 113 mL/min/1.73 >59 eGFR If Africn Am 131 mL/min/1.73 >59 BUN/Creatinine Ratio 13 8-19 Sodium, Serum 141 mmol/L 134-144 Potassium, Serum 4.3 mmol/L 3.5-5.2 Chloride, Serum 102 mmol/L 96-106 Carbon Dioxide, Total 22 mmol/L 18-29 Calcium, Serum 9.9 mg/dL 8.7-10.2 Protein, Total, Serum 7.8 g/dL 6.0-8.5 Albumin, Serum 4.6 g/dL 3.5-5.5 Globulin, Total 3.2 g/dL 1.5-4.5 A/G Ratio 1.4 1.2-2.2 Bilirubin, Total 0.4 mg/dL 0.0-1.2 Alkaline Phosphatase, S 103 IU/L 39-117 AST (SGOT) 15 IU/L 0-40 ALT (SGPT) 27 IU/L 0-44 TSH - 08/22/16 09:48 TSH 2.740 uIU/mL 0.450-4.500 Cardiac Panel - 10/09/16 22:06 CK 50 U/L 26-174 CK-MB 0.7 ng/ml 0.0-9.2 Myoglobin 22.3 ng/ml 1.6-154.9 Troponin <0.020 ng/mL 0.0-0.4 Lipase - 10/09/16 22:07 Lipase 47 U/L 7-59 EKG - 10/09/16 22:50 EKG Complete Complete blood count (CBC) with automated white [...] NRG Blood erythrocyte morphology finding identification NORMAL NRG Comprehensive metabolic panel - 05/11/17 10:51 Serum [...] THYROID STIMULATING HORMONE 3.54 u[iU]/mL 0.35-4.94 [facility] [place] GENERAL PROFILE - 05/31/17 10:09 [id number] SEE FOOTNOTE NRG Serum Alternaria alternata IgE [...] class [presence] in serum CLASS 0 NRG [place] house dust mite IgE ab RAST class [...] antibody assay (units/volume) CLASS 0 % NRG Complete blood count (CBC) with automated white blood cell (WBC) differential - 07/27/17 14:05 Blood leukocytes automated count (number/volume) 8.5 10*3/uL 4.3-11.0 Blood erythrocytes automated count (number/volume) 4.90 10*6/uL 4.35-5.85 Venous blood hemoglobin measurement (mass/volume) 14.7 g/dL 13.3-17.7 Blood hematocrit (volume fraction) 43 % 40-54 Automated erythrocyte mean corpuscular volume 88 [foz_us] 80-99 Automated erythrocyte mean corpuscular hemoglobin (mass per erythrocyte) 30 pg 25-34 Automated erythrocyte mean corpuscular hemoglobin concentration measurement ( mass/volume) 34 g/dL 32-36 Automated erythrocyte distribution width ratio 12.6 % 10.0-14.5 Automated blood platelet count (count/volume) 238 10*3/uL 130-400 Automated blood platelet mean volume measurement 10.2 [foz_us] 7.4-10.4 Automated blood neutrophils/100 leukocytes 68 % 42-75 Automated blood lymphocytes/100 leukocytes 21 % 12-44 Blood monocytes/100 leukocytes 8 % 0-12 Automated blood eosinophils/100 leukocytes 3 % 0-10 Automated blood basophils/100 leukocytes 1 % 0-10 Blood neutrophils automated count (number/volume) 5.8 10*3 1.8-7.8 Blood lymphocytes automated count (number/volume) 1.8 10*3 1.0-4.0 Blood monocytes automated count (number/volume) 0.7 10*3 0.0-1.0 Automated eosinophil count 0.2 10*3/uL 0.0-0.3 Automated blood basophil count (count/volume) 0.1 10*3/uL 0.0-0.1 Comprehensive metabolic panel - 07/27/17 14:05 Serum or plasma sodium measurement (moles/volume) 136 mmol/L 135-145 Serum or plasma potassium measurement (moles/volume) 3.4 mmol/L 3.6-5.0 Serum or plasma chloride measurement (moles/volume) 100 mmol/L 98-107 Carbon dioxide 24 mmol/L 21-32 Serum or plasma anion gap determination (moles/volume) 12 mmol/L 5-14 Serum or plasma urea nitrogen measurement (mass/volume) 8 mg/dL 7-18 Serum or plasma creatinine measurement (mass/volume) 0.90 mg/dL 0.60-1.30 Serum or plasma urea nitrogen/creatinine mass ratio 9 NRG Serum or plasma creatinine measurement with calculation of estimated glomerular filtration rate > NRG Serum or plasma glucose measurement (mass/volume) 89 mg/dL 70-105 Serum or plasma calcium measurement (mass/volume) 9.6 mg/dL 8.5-10.1 Serum or plasma total bilirubin measurement (mass/volume) 1.1 mg/dL 0.1-1.0 Serum or plasma alkaline phosphatase measurement (enzymatic activity/volume) 100 U/L 40-136 Serum or plasma aspartate aminotransferase measurement (enzymatic activity/ volume) 29 U/L 5-34 Serum or plasma alanine aminotransferase measurement (enzymatic activity/volume ) 52 U/L 0-55 Serum or plasma protein measurement (mass/volume) 8.1 g/dL 6.4-8.2 Serum or plasma albumin measurement (mass/volume) 4.3 g/dL 3.2-4.5 Mycoplasma - 01/20/18 14:42 Mycoplasma Negative Negative TSH - 03/18/18 09:36 TSH 7.99 mIU/L 0.40-4.50 Encounters ACCT No. Visit Date/Time Discharge Status Pt. Type Provider Facility Loc./Unit Complaint [id number] 07/13/2014 15:58:00 07/13/2014 23:59:59 CLS Outpatient KIANNA MENESES MD [id number] 02/27/2014 10:40:00 02/27/2014 23:59:59 CLS Outpatient KIANNA MENESES MD [id number] 01/19/2014 13:44:00 01/19/2014 23:59:59 CLS Outpatient KIANNA MENESES MD [id number] 12/16/2013 14:02:00 12/16/2013 23:59:59 CLS Outpatient KIANNA MENESES MD [id number] 12/09/2013 10:27:00 12/09/2013 23:59:59 CLS Outpatient KIANNA MENESES MD [id number] 10/22/2013 08:50:00 10/22/2013 23:59:59 CLS Outpatient BOBBI TELLO APRN [id number] 07/10/2013 10:08:00 07/10/2013 23:59:59 CLS Outpatient BOBBI TELLO APRN [id number] 06/06/2013 14:14:00 06/06/2013 23:59:59 CLS Outpatient BOBBI TELLO APRN [id number] 03/24/2013 09:45:00 03/24/2013 23:59:59 CLS Outpatient MICHELLE MOLINA APRN [id number] 08/07/2012 09:32:00 08/07/2012 23:59:59 CLS Outpatient BELKYS PENA DO [id number] 06/13/2012 08:35:00 06/13/2012 23:59:59 [place] [id number] 05/13/2012 10:13:00 05/13/2012 23:59:59 CLS Outpatient BELKYS PENA DO [id number] 12/13/2012 13:15:00 Document Registration [id number] 11/22/2012 11:11:00 Document Registration [id number] 11/15/2012 10:57:00 Document Registration [id number] 10/16/2012 11:41:00 Document Registration [id number] 11/17/2017 16:10:00 11/17/2017 17:53:00 DIS Emergency KEIRA PENA EPIDEMIOLOGY INTERN [facility] ER COPD,"NEEDS BREATHING TREATMENT" [id number] 07/27/2017 13:26:00 07/27/2017 15:27:00 DIS Emergency KEIRA PENA EPIDEMIOLOGY INTERN [facility] ER ASTHMA/SOB/COUGH/N/V/ FEVER [id number] 07/02/2017 09:04:00 07/02/2017 23:59:59 CLS Outpatient CHELY PETERS APRN [facility] RT ASTHMA [id number] 06/19/2017 14:01:00 06/19/2017 23:59:59 CLS Preadmit CHELY PETERS APRN [facility] SLEEP G47.9 SLEEP DISORDER [id number] 06/10/2017 13:00:00 06/10/2017 13:39:00 DIS Outpatient CHELY PETERS APRN [facility] SLEEP G47.10 [id number] 06/03/2017 21:34:00 06/03/2017 23:21:00 DIS Emergency CALI ROBERTS, EARNESTINE José [facility] ER WEAK RECTAL BLEED [id number] 05/31/2017 09:41:00 05/31/2017 23:59:59 CLS Outpatient CHELSY MORALES [facility] LAB E03.9 J45.50J30.89 [id number] 05/31/2017 09:37:00 05/31/2017 23:59:59 CLS Outpatient CHELY PETERS APRN [facility] RAD J45.909 R06.00 [id number] 05/11/2017 10:14:00 05/11/2017 12:12:00 DIS Emergency ROME ROBERTS, EDWIN Renner [facility] ER BREATHING ISSUES, ASTHMA-- [id number] 05/10/2017 17:52:00 05/10/2017 18:30:00 DIS Emergency ROME ROBERTS, EDWIN Renner [facility] ER TROUBLE BREATHING; WANTS CHECKED FOR MENINGITIS [id number] 10/08/2013 09:47:00 10/08/2013 23:59:59 CLS Outpatient BUBBA ROBERTS FACC, EMILY CLAYP CCDS [facility] CARD CHEST PAIN [id number] 11/12/2012 10:01:00 11/12/2012 18:08:00 DIS Outpatient BUBBA ROBERTS FACC, ALI FACP CCDS [facility] CATH CP,HTN [id number] 10/28/2012 09:39:00 10/28/2012 23:59:59 CLS Outpatient JIMMIE ROBERTS, SARAHI [facility] CARD CP [id number] 04/02/2018 20:25:00 ACT Emergency ÓSCAR ROBERTS, TONJA Freeman [facility] ER COPD BOTHERING HIM, R SHOULDER PAIN [id number] 06/18/2012 21:53:00 Document Registration [id number] 05/30/2012 15:52:00 Document Registration [id number] 03/12/2012 10:40:00 Document Registration [id number] 02/27/2012 00:00:00 Document Registration [id number] 02/20/2012 19:38:00 Document Registration [id number] 01/27/2012 23:40:00 Document Registration [id number] 01/19/2012 18:00:00 Document Registration [id number] 01/14/2012 18:51:00 Document Registration [id number] 01/08/2012 19:51:00 Document Registration [id number] 12/23/2011 15:40:00 Document Registration [id number] 12/07/2011 12:34:00 Document Registration [id number] 12/07/2011 12:33:00 Document Registration [id number] 08/23/2016 08:35:00 Document Registration [id number] 02/19/2018 16:36:00 02/19/2018 17:46:00 [id number] 01/20/2018 13:59:00 01/20/2018 16:00:00 DIS Outpatient [facility] ER [id number] 10/09/2016 21:45:00 10/09/2016 23:45:00 DIS Outpatient [facility] ER [id number] 07/03/2016 22:54:00 07/04/2016 00:25:00 [place] [facility] [place] [id number] 07/03/2016 23:07:35 Document Registration [id number] 05/18/2017 08:40:00 05/18/2017 23:59:59 CLS Out[facility] [id number] 03/18/2018 09:20:00 Document Registration [id number] 07/03/2016 22:54:00 Document Registration
--- NOTE | 2018-04-02 21:24 | ED Cough/URI ---
General Stated Complaint: COPD BOTHERING HIM, R SHOULDER PAIN Source: patient Exam Limitations: no limitations History of Present Illness Date Seen by Provider: Apr 02, 2018 Time Seen by Provider: 21:22 Initial Comments To ER for with reports of worsening shortness of breath and cough for the past 2 -3 weeks. He saw primary care at [facility] on March 18 and was prescribed blood pressure medication and Zyrtec. He denies any improvement and states that he's gotten progressively worse since then. No fevers or chills. He does have pain to the anterior lateral right chest and the shoulder region but denies any known injury to the shoulder itself. Severity/Quality: moderate Associated Symptoms: cough, shortness of breath, wheezing Allergies and Home Medications Allergies Coded Allergies: No Known Drug Allergies (Unverified , 05/04/11) Home Medications Albuterol Sulfate 2.5 Mg/3 Ml Vial.neb, 2.5 MG IH Q4H PRN for WHEEZING Prescribed by: KEIRA PENA on 07/27/17 1448 Levothyroxine Sodium 50 Mcg Tablet, 50 MCG PO DAILY, (Reported) Pramoxine HCl 15 Gm Foam, 1 APPLIC TP QID Prescribed by: EARNESTINE WILKERSON on 06/03/17 2315 Prednisone 20 Mg Tab, 40 MG PO DAILY Prescribed by: KEIRA PENA on 07/27/17 1448 Patient Home Medication List Home Medication List Reviewed: Yes Review of Systems Review of Systems Constitutional: see HPI EENTM: see HPI Respiratory: see HPI, cough, short of breath, wheezing Cardiovascular: no symptoms reported Genitourinary: no symptoms reported Musculoskeletal: no symptoms reported Skin: no symptoms reported Psychiatric/Neurological: No Symptoms Reported Past Fvgbepf-Jvwhkp-Iehowz Hx Patient Social History 2nd Hand Smoke Exposure: No Recent Foreign Travel: No Contact w/Someone Who Travel: No Recent Hopitalizations: Yes Past Medical History Surgeries: Yes (HEART CATH 2011) Respiratory: Yes (has rescue inhaler is not aware of having asthma) Cardiac: No Neurological: No Reproductive Disorders: No Genitourinary: No Gastrointestinal: No Musculoskeletal: No Endocrine: Yes Hypothyroidsim HEENT: No Cancer: No Psychosocial: No Anxiety Blood Disorders: No Physical Exam Vital Signs - First Documented 04/02/18 21:20 Temp 97.8 Pulse 90 Resp 22 B/P (MAP) 125/79 (94) Pulse Ox 100 O2 Delivery Room Air Capillary Refill : Height: 5'9.00" Weight: 210lbs. 0oz. 95.553600am; BMI Method:Stated General Appearance: WD/WN, no apparent distress Eyes: Bilateral Eye Normal Inspection, Bilateral Eye PERRL, Bilateral Eye EOMI HEENT: PERRL/EOMI, normal ENT inspection Neck: non-tender, full range of motion Respiratory: no respiratory distress, no accessory muscle use, decreased breath sounds, wheezing Cardiovascular: regular rate, rhythm, no murmur Gastrointestinal: normal bowel sounds, non tender, soft Extremities: normal range of motion, non-tender Neurologic/Psychiatric: alert, normal mood/affect, oriented x 3 Skin: normal color, warm/dry Progress/Results/Core Measures Suspected Sepsis SIRS Temperature: Pulse: Respiratory Rate: Laboratory Tests 04/02/18 21:34: White Blood Count 8.5 Blood Pressure / Mean: Laboratory Tests 04/02/18 21:34: Creatinine 0.87, Platelet Count 232, Total Bilirubin 0.5 Results/Orders Lab Results Laboratory Tests Test 04/02/18 21:34 Range/Units White Blood Count 8.5 4.3-11.0 10^3/uL Red Blood Count 5.26 4.35-5.85 10^6/uL Hemoglobin 15.6 13.3-17.7 G/DL Hematocrit 47 40-54 % Mean Corpuscular Volume 90 80-99 FL Mean Corpuscular Hemoglobin 30 25-34 PG Mean Corpuscular Hemoglobin Concent 33 32-36 G/DL Red Cell Distribution Width 12.8 10.0-14.5 % Platelet Count 232 130-400 10^3/uL Mean Platelet Volume 10.3 7.4-10.4 FL Neutrophils (%) (Auto) 53 42-75 % Lymphocytes (%) (Auto) 26 12-44 % Monocytes (%) (Auto) 6 0-12 % Eosinophils (%) (Auto) 15 H 0-10 % Basophils (%) (Auto) 1 0-10 % Neutrophils # (Auto) 4.5 1.8-7.8 X 10^3 Lymphocytes # (Auto) 2.2 1.0-4.0 X 10^3 Monocytes # (Auto) 0.6 0.0-1.0 X 10^3 Eosinophils # (Auto) 1.2 H 0.0-0.3 10^3/uL Basophils # (Auto) 0.1 0.0-0.1 10^3/uL Sodium Level 140 135-145 MMOL/L Potassium Level 3.7 3.6-5.0 MMOL/L Chloride Level 104 98-107 MMOL/L Carbon Dioxide Level 21 21-32 MMOL/L Anion Gap 15 H 5-14 MMOL/L Blood Urea Nitrogen 9 7-18 MG/DL Creatinine 0.87 0.60-1.30 MG/DL Estimat Glomerular Filtration Rate > 60 BUN/Creatinine Ratio 10 Glucose Level 103 70-105 MG/DL Calcium Level 10.6 H 8.5-10.1 MG/DL Corrected Calcium 8.5-10.1 MG/DL Total Bilirubin 0.5 0.1-1.0 MG/DL Aspartate Amino Transf (AST/SGOT) 20 5-34 U/L Alanine Aminotransferase (ALT/SGPT) 24 0-55 U/L Alkaline Phosphatase 95 40-136 U/L Total Protein 8.4 H 6.4-8.2 GM/DL Albumin 4.8 H 3.2-4.5 GM/DL My Orders Orders - KEIRA PENA DIRECTOR OF CODING Iv Heplock-Insert (Order) (04/02/18 21:21) Cbc With Automated Diff (04/02/18 21:21) Comprehensive Metabolic Panel (04/02/18 21:21) Chest Pa/Lat (2 View) (04/02/18 21:21) Albuterol/Ipra Inhalation Soln (Duoneb I (04/02/18 21:30) Albuterol Pre-Mix Nebs (Rt) (Proventil (04/02/18 21:30) Svn Small Volume Nebulizer (04/02/18 21:21) Svn Small Volume Nebulizer (04/02/18 21:21) Methylprednisolone Sod Succ (Solu-Medrol (04/02/18 21:30) Ondansetron Injection (Zofran Injectio (04/02/18 22:00) Medications Given in ED Current Medications Medications Dose Ordered Sig/Anatoly Route Start Time Stop Time Status Last Admin Dose Admin Albuterol/ Ipratropium 3 ml ONCE ONCE INH 04/02/18 21:30 04/02/18 21:31 DC 04/02/18 21:38 3 ML Methylprednisolone Sodium Succinate 125 mg ONCE ONCE IVP 04/02/18 21:30 04/02/18 21:31 DC 04/02/18 21:59 125 MG Ondansetron HCl 8 mg ONCE ONCE IVP 04/02/18 22:00 04/02/18 22:01 DC 04/02/18 22:09 8 MG Vital Signs/I&O 04/02/18 04/02/18 21:20 21:39 Temp 97.8 Pulse 90 Resp 22 B/P (MAP) 125/79 (94) Pulse Ox 100 97 O2 Delivery Room Air Room Air Capillary Refill : Departure Communication (Admissions) 20--he states he is feeling much better now than he did upon arrival. He states that he does have a nebulizer at home and an adequate supply of albuterol for the nebulizer at home. His oxygen saturation is 97% on room air, his respiratory rate is about 20-24. He has much better air movement at this time with less wheezing. I'll prescribe him a course of steroids and some Zithromax for the outpatient setting. Impression Primary Impression: Reactive airway disease with acute exacerbation Qualified Codes: J45.901 - Unspecified asthma with (acute) exacerbation Disposition: HOME, SELF-CARE Condition: Improved Departure-Patient Inst. Decision time for Depature: 22:38 Referrals: [facility] [place] (PCP/Family) Primary Care Physician Patient Instructions: Cough, Adult (DC) Add. Discharge Instructions: 1. Steroids as directed starting tomorrow in addition to antibiotics. Follow-up with your doctor next week and return to the emergency room for any worsening. Scripts Azithromycin (Zithromax) 250 Mg Tablet 250 MG PO UD, #6 TAB TAKE 2 TABLETS TODAY, THEN TAKE 1 TABLET DAILY FOR 4 MORE DAYS Prov: KEIRA PENA APRN 04/02/18 Prednisone (Prednisone) 5 Mg Tablet 5 MG PO UD, #32 TAB 40 mg daily for 4 days. Prov: KEIRA PENA APRN 04/02/18 Work/School Note: Work Release Form Date Seen in the Emergency Department: Apr 02, 2018 Return to Work: Apr 04, 2018 KEIRA PENA APRN Apr 02, 2018 21:24
[2018-04-02] MEDS ORDERED: methylPREDNISolone 125 MG (Solu-MEDROL) VIAL IVP ONE (21:30)
[2018-04-02] MEDS ORDERED: RT-ALBUTEROL/IPRATROPIUM 3 ML (DUONEB) VIAL INH ONE (21:30)
[2018-04-02] MEDS ORDERED: RT-ALBUTEROL SULF 2.5 MG/3 ML PRE-MIX VIAL INH SCH (21:30)
[2018-04-02 21:44] LABS: BASOPHILS # (AUTO) 0.1 10^3/uL (0.0-0.1); BASOPHILS % (AUTO) 1 % (0-10); EOSINOPHILS # (AUTO) 1.2 10^3/uL (0.0-0.3); EOSINOPHILS % (AUTO) 15 % (0-10); HEMATOCRIT 47 % (40-54); HEMOGLOBIN 15.6 G/DL (13.3-17.7); LYMPHOCYTES # (AUTO) 2.2 X 10^3 (1.0-4.0); LYMPHOCYTES % (AUTO) 26 % (12-44); MEAN CORPUSCULAR HEMOGLOBIN 30 PG (25-34); MEAN CORPUSCULAR HGB CONC 33 G/DL (32-36); MEAN CORPUSCULAR VOLUME 90 FL (80-99); MEAN PLATELET VOLUME 10.3 FL (7.4-10.4); MONOCYTES # (AUTO) 0.6 X 10^3 (0.0-1.0); MONOCYTES % (AUTO) 6 % (0-12); NEUTROPHILS # (AUTO) 4.5 X 10^3 (1.8-7.8); NEUTROPHILS % (AUTO) 53 % (42-75); PLATELET COUNT 232 10^3/uL (130-400); RED BLOOD COUNT 5.26 10^6/uL (4.35-5.85); RED CELL DISTRIBUTION WIDTH 12.8 % (10.0-14.5); WHITE BLOOD COUNT 8.5 10^3/uL (4.3-11.0)
[2018-04-02] MEDS ORDERED: ONDANSETRON 4 MG/2 ML (SDV) Z0FRAN IVP ONE (22:00)
[2018-04-02 22:01] LABS: ALANINE AMINOTRANSFERASE 24 U/L (0-55); ALBUMIN 4.8 GM/DL (3.2-4.5); ALKALINE PHOSPHATASE 95 U/L (40-136); BILIRUBIN,TOTAL 0.5 MG/DL (0.1-1.0); BUN/CREATININE RATIO 10; CALCIUM 10.6 MG/DL (8.5-10.1); CARBON DIOXIDE 21 MMOL/L (21-32); CHLORIDE 104 MMOL/L (98-107); CREATININE SERUM 0.87 MG/DL (0.60-1.30); GFR ESTIMATED > 60; GLUCOSE 103 MG/DL (70-105); POTASSIUM 3.7 MMOL/L (3.6-5.0); SODIUM 140 MMOL/L (135-145); TOTAL PROTEIN 8.4 GM/DL (6.4-8.2)
[2018-04-02] MEDS ORDERED: PRED5TAB PO (22:41)
[2018-04-02] MEDS ORDERED: AZIT250T PO (22:41)
[2018-04-02 23:21] VITALS: BP 136/84
--- NOTE | 2018-04-03 07:20 | Diagnostic Imaging Report ---
INDICATION: Cough. COMPARISON: 11/17/2017. PA and lateral chest. FINDINGS: Lungs are well-aerated and clear. Heart is not enlarged. No pulmonary edema. No pneumothorax or pleural effusion. No hilar adenopathy. No bony abnormalities. IMPRESSION: Normal PA and lateral chest. Dictated by: Dictated on workstation # [id number]
== END 2018-04-02 23:21 | disposition home or self-care (01) ==
LOC: EDUNIT# 20:24 → ER 20:25
DX: J45.901 Unspecified asthma with (acute) exacerbation (principal); E03.9 Hypothyroidism, unspecified; F41.9 Anxiety disorder, unspecified
CPT/HCPCS: 36415; 71046; 80053; 85025; 94640; 94644

== ENCOUNTER 2018-04-11 21:25 | Emergency (ER) | payer SELFPAY ==
[~2018-04-11] VITALS: Ht 175.3 cm; Wt 95.3 kg
[~2018-04-11 21:25] MED LIST changes: +AZIT250T PO; +PRED5TAB PO
--- OUTSIDE RECORDS SUMMARY | 2018-04-11 21:36 | XMS REPORT | Continuity of Care Document ---
Author Author [facility] Address Unknown Phone Unavailable Allergies Active Description Code Type Severity Reaction Onset Reported/Identified Relationship to Patient Clinical Status Yes NO KNOWN DRUG ALLERGIES NO KNOWN DRUG ALLERG UNKNOWN Yes NO KNOWN DRUG ALLERGIES UNKNOWN NO KNOWN DRUG ALLERG Yes No Known Drug Allergies [id number] Drug Allergy Unknown N/A 05/04/2011 Medications Medication [...] MG/2CC (SOLU-MEDROL VIAL) MG 02/19/2018 02/19/2018 [id number]&1705 TETANUS,DIPTH,PERT ADULT INJ 0 (ADACEL SYRINGE) ml 04/08/2018 04/08/2018 ONCE&1317 Problems Date Dx Coded Attending Type Code [...] APRNINA R 578.1 Blood In Stool 10/05/2011 OEMR EASTMAN BOBBI R 599.70 Hematuria Unspecified 10/05/2011 OMER BOYERN BOBBI R 780.4 Dizziness And Giddiness 10/05/2011 OMER BOYERN BOBBI R 784.0 Headache 10/05/2011 OMER EASTMAN BOBBI R 790.4 Abnormal Lft (elevated) 10/05/2011 OMER EASTMAN BOBBI R 799.22 Irritability 10/05/2011 OMER EASTMAN BOBBI R V58.69 LONG-TERM (CURRENT) USE OF OTHER MEDICATIONS 10/05/2011 JUNAID TELLO APRNINA R 578.1 Blood In Stool 10/05/2011 OMER VP CLINICAL, BOBBI R 599.70 Hematuria Unspecified 10/05/2011 OMER VP CLINICAL, BOBBI R 780.4 Dizziness And Giddiness 10/05/2011 OMER VP CLINICAL, BOBBI R 784.0 Headache 10/05/2011 OMER VP CLINICAL, BOBBI R 790.4 Abnormal Lft (elevated) 10/05/2011 OMER VP CLINICAL, BOBBI R 799.22 Irritability 10/05/2011 OMER VP CLINICAL, BOBBI R V58.69 LONG-TERM (CURRENT) USE OF OTHER MEDICATIONS 10/05/2011 OMER VP CLINICAL BOBBI R 578.1 Blood In Stool 10/05/2011 OMER VP CLINICAL, BOBBI R 599.70 Hematuria Unspecified 10/05/2011 OMER VP CLINICAL, BOBBI R 780.4 Dizziness And Giddiness 10/05/2011 OMER VP CLINICAL, BOBBI R 784.0 Headache 10/05/2011 OMER BOYERN, BOBBI R 790.4 Abnormal Lft (elevated) 10/05/2011 [...] OF OTHER MEDICATIONS 10/05/2011 BELKYS PENA DO K 578.1 Blood In Stool 10/05/2011 BELKYS PENA DO 599.70 Hematuria Unspecified 10/05/2011 BELKYS PENA DO 780.4 Dizziness And Giddiness 10/05/2011 BELKYS PENA DO K 784.0 Headache 10/05/2011 BELKYS PENA DO K 790.4 Abnormal Lft (elevated) 10/05/2011 BELKYS PENA DO K 799.22 Irritability 10/05/2011 BELKYS PENA DO K V58.69 LONG-TERM (CURRENT) USE OF OTHER MEDICATIONS 10/12/2011 BELKYS PENA DO K 300.00 AN ANXIETY UNSPEC 10/12/2011 BELKYS PENA DO K 300.00 AN ANXIETY UNSPEC 10/12/2011 300.00 AN ANXIETY UNSPEC 10/12/2011 300.00 AN ANXIETY UNSPEC 10/12/2011 300.00 AN ANXIETY UNSPEC 10/12/2011 300.00 AN ANXIETY UNSPEC 10/12/2011 MICHELLE MOLINA APRN 300.00 AN ANXIETY UNSPEC 10/12/2011 BOBBI TELLO APRN 300.00 AN ANXIETY UNSPEC 10/12/2011 BOBBI TELLO APRN R 300.00 AN ANXIETY UNSPEC 10/12/2011 BOBBI TELLO APRN R 300.00 AN ANXIETY UNSPEC 10/12/2011 KIANNA MENESES MD 300.00 AN ANXIETY UNSPEC 10/12/2011 KIANNA MENESES MD 300.00 AN ANXIETY UNSPEC 10/12/2011 KIANNA MENESES MD 300.00 AN ANXIETY UNSPEC 10/12/2011 KIANNA MENESES MD 300.00 AN ANXIETY UNSPEC 10/12/2011 KIANNA MENESES MD 300.00 AN ANXIETY UNSPEC 10/12/2011 BELKYS PENA DO K 300.00 AN ANXIETY UNSPEC 10/15/2011 BELKYS PENA DO K 242.90 HYPERTHYROIDISM 10/15/2011 ANNEL PENA DOA K 242.90 HYPERTHYROIDISM 10/15/2011 242.90 HYPERTHYROIDISM 10/15/2011 242.90 HYPERTHYROIDISM 10/15/2011 242.90 HYPERTHYROIDISM 10/15/2011 242.90 HYPERTHYROIDISM 10/15/2011 MICHELLE MOLINA APRN 242.90 HYPERTHYROIDISM 10/15/2011 BOBBI TELLO APRN R 242.90 HYPERTHYROIDISM 10/15/2011 BOBBI TELLO APRN R 242.90 HYPERTHYROIDISM 10/15/2011 BOBBI TELLO APRN R 242.90 HYPERTHYROIDISM 10/15/2011 KIANNA MENESES MD 242.90 HYPERTHYROIDISM 10/15/2011 KIANNA MENESES MD 242.90 HYPERTHYROIDISM 10/15/2011 KIANNA MENESES MD 242.90 HYPERTHYROIDISM 10/15/2011 KIANNA MENESES MD 242.90 HYPERTHYROIDISM 10/15/2011 KIANNA MENESES MD 242.90 HYPERTHYROIDISM 10/15/2011 BELKYS PENA DO 242.90 HYPERTHYROIDISM 10/19/2011 ANNEL PENA DOA K 786.50 Chest Pain 10/19/2011 ANNEL PENA DOA K 786.50 Chest Pain 10/19/2011 786.50 Chest Pain 10/19/2011 786.50 Chest Pain 10/19/2011 786.50 Chest Pain 10/19/2011 786.50 Chest Pain 10/19/2011 MICHELLE MOLINA APRN M 786.50 Chest Pain 10/19/2011 OMER EASTMAN, BOBBI R 786.50 Chest Pain 10/19/2011 OMER EASTMAN, BOBBI R 786.50 Chest Pain 10/19/2011 OMER EASTMAN, BOBBI R 786.50 Chest Pain 10/19/2011 KIANNA MENESES MD 786.50 Chest Pain 10/19/2011 KIANNA MENESES MD 786.50 Chest Pain 10/19/2011 KIANNA MENESES MD 786.50 Chest Pain 10/19/2011 KIANNA MENESES MD 786.50 Chest Pain 10/19/2011 KIANNA MENESES MD 786.50 Chest Pain 10/19/2011 ANNEL PENA DOA K 786.50 Chest Pain 10/24/2011 BELKYS PENA DO K 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 10/24/2011 BELKYS PENA DO 311 DEPRESSIVE DISORDER NOT ELSEWHERE CLASSIFIED 10/24/2011 BELKYS PENA DO 401.1 HYPERTENSION, BENIGN ESSENTIAL 10/24/2011 ANNEL PENA DOA K 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 10/24/2011 BELKYS PENA DO K 311 DEPRESSIVE DISORDER NOT ELSEWHERE CLASSIFIED 10/24/2011 BELKYS PENA DO K 401.1 HYPERTENSION, BENIGN ESSENTIAL 10/24/2011 242.00 [...] HYPERTENSION, BENIGN ESSENTIAL 10/24/2011 MICHELLE MOLINA APRN M 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 10/24/2011 MICHELLE MOLINA APRN M 311 DEPRESSIVE DISORDER NOT ELSEWHERE CLASSIFIED 10/24/2011 [...] R 401.1 HYPERTENSION, BENIGN ESSENTIAL 10/24/2011 OMER EASTMAN, BOBBI R 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 10/24/2011 OMER EASTMAN BOBBI R 311 DEPRESSIVE DISORDER NOT ELSEWHERE CLASSIFIED 10/24/2011 OMER EASTMAN, BOBBI R 401.1 HYPERTENSION, BENIGN ESSENTIAL 10/24/2011 [...] MD 401.1 ESSENTIAL HYPERTENSION BENIGN 10/24/2011 PENA , BELKYS K 242.00 TOXIC 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 [...] MICHELLE MOLINA APRN 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 01/02/2012 JUNAID TELLO APRNINA R 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 01/02/2012 BOBBI TELLO APRN 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 01/02/2012 OMER EASTMAN BOBBI R 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 01/02/2012 KIANNA MENESES [...] TOX DIF GOITER NO CRISIS 03/15/2012 PENA DOANNELA K 461.9 SINUSITIS ACUTE 03/15/2012 PENA DOANNELA K 466.0 Bronchitis, Acute 03/15/2012 PENA DOANNELA K 461.9 SINUSITIS ACUTE 03/15/2012 PENA DOANNELA K 466.0 Bronchitis, Acute 03/15/2012 461.9 SINUSITIS ACUTE 03/15/2012 466.0 Bronchitis, Acute 03/15/2012 461.9 SINUSITIS ACUTE 03/15/2012 466.0 Bronchitis, Acute 03/15/2012 461.9 SINUSITIS ACUTE 03/15/2012 466.0 Bronchitis, Acute 03/15/2012 461.9 SINUSITIS ACUTE 03/15/2012 466.0 Bronchitis, Acute 03/15/2012 MCIHELLE MOLINA APRN 461.9 SINUSITIS ACUTE 03/15/2012 MICHELLE MOLINA APRN 466.0 Bronchitis, Acute 03/15/2012 OMER VP CLINICAL, BOBBI R 461.9 SINUSITIS ACUTE 03/15/2012 OMER VP CLINICAL, BOBBI R 466.0 Bronchitis, Acute 03/15/2012 OMER VP CLINICAL, BOBBI R 461.9 SINUSITIS ACUTE 03/15/2012 OMER VP CLINICAL, BOBBI R 466.0 Bronchitis, Acute 03/15/2012 OMER VP CLINICAL, BOBBI R 461.9 SINUSITIS ACUTE 03/15/2012 OMER VP CLINICAL, BOBBI R 466.0 Bronchitis, Acute 03/15/2012 ZAIRA [...] PENA DO BELKYS K 244.9 HYPOTHYROIDISM 05/14/2012 PENA DO BELKYS K 244.9 HYPOTHYROIDISM 05/14/2012 244.9 HYPOTHYROIDISM 05/14/2012 244.9 HYPOTHYROIDISM 05/14/2012 244.9 HYPOTHYROIDISM 05/14/2012 244.9 HYPOTHYROIDISM 05/14/2012 MICHELLE MOLINA APRN 244.9 HYPOTHYROIDISM 05/14/2012 BOBBI TELLO APRN R 244.9 HYPOTHYROIDISM 05/14/2012 BOBBI TELLO APRN R 244.9 HYPOTHYROIDISM 05/14/2012 OMER EASTMAN BOBBI R 244.9 HYPOTHYROIDISM 05/14/2012 KIANNA MENESES MD 244.9 HYPOTHYROIDISM 05/14/2012 KIANNA MENESES MD 244.9 HYPOTHYROIDISM 05/14/2012 KIANNA MENESES MD 244.9 HYPOTHYROIDISM 05/14/2012 KIANNA MENESES MD 244.9 HYPOTHYROIDISM 05/14/2012 KIANNA MENESES MD 244.9 HYPOTHYROIDISM 05/14/2012 ANNEL PENA DOA K 244.9 HYPOTHYROIDISM 05/30/2012 Ot 276.50 VOLUME DEPLETION, UNSPECIFIED 05/30/2012 Ot 787.03 VOMITING ALONE 05/30/2012 Ot 789.07 ABDOMINAL PAIN, GENERALIZED 06/13/2012 PENA DO BELKYS K 466.0 BRONCHITIS, ACUTE 06/13/2012 BECKY PANCHAL BELKYS K 569.3 RECTAL BLEEDING 06/13/2012 PENA DO, BELKYS K 786.07 WHEEZING 06/13/2012 PENA DO, BELKYS K 786.09 DYSPNEA 06/13/2012 PENA DO, BELKYS K 786.2 COUGH 06/13/2012 PENA DO, BEKLYS K 466.0 BRONCHITIS, ACUTE 06/13/2012 PENA DO, BELKYS K 569.3 RECTAL BLEEDING 06/13/2012 PENA DO, BELKYS K 786.07 WHEEZING 06/13/2012 EPNA DO, BELKYS K 786.09 DYSPNEA 06/13/2012 PENA [...] 06/13/2012 786.2 COUGH 06/13/2012 MICHELLE MOLINA APRN M 466.0 BRONCHITIS, ACUTE 06/13/2012 MICHELLE MOLINA APRN M 569.3 RECTAL BLEEDING 06/13/2012 MICHELLE MOLINA APRN M 786.07 WHEEZING 06/13/2012 MICHELLE MOLINA APRN M 786.09 DYSPNEA 06/13/2012 MICHELLE MOLINA APRN M 786.2 COUGH 06/13/2012 OMER VP CLINICAL, BOBBI R 466.0 BRONCHITIS, ACUTE 06/13/2012 OMER VP CLINICAL, BOBBI R 569.3 RECTAL BLEEDING 06/13/2012 OMER VP CLINICAL, BOBBI R 786.07 WHEEZING 06/13/2012 OMER VP CLINICAL, BOBBI R 786.09 DYSPNEA 06/13/2012 OMER VP CLINICAL, BOBBI R 786.2 COUGH 06/13/2012 OMER VP CLINICAL, BOBBI R 466.0 BRONCHITIS, ACUTE 06/13/2012 OMER VP CLINICAL, BOBBI R 569.3 RECTAL BLEEDING 06/13/2012 OMER VP CLINICAL, BOBBI R 786.07 WHEEZING 06/13/2012 OMER VP CLINICAL, BOBBI R 786.09 DYSPNEA 06/13/2012 OMER VP CLINICAL, BOBBI R 786.2 COUGH 06/13/2012 OMER VP CLINICAL, BOBBI R 466.0 BRONCHITIS, ACUTE 06/13/2012 OMER VP CLINICAL, BOBBI R 569.3 RECTAL BLEEDING 06/13/2012 OMER VP CLINICAL, BOBBI R 786.07 WHEEZING 06/13/2012 OMER VP CLINICAL, BOBBI R 786.09 DYSPNEA 06/13/2012 OMER VP CLINICAL, BOBBI R 786.2 COUGH 06/13/2012 ZAIRA ROBERTS, [...] Renner 786.07 WHEEZING 06/13/2012 ZAIRA ROBERTS, KIANNA D [...] TELLO APRNINA R 786.50 CHEST PAIN 08/07/2012 KIANNA MENESES MD 786.50 CHEST PAIN 08/07/2012 KIANNA MENESES MD 786.50 CHEST PAIN 08/07/2012 KIANNA MENESES MD 786.50 CHEST PAIN 08/07/2012 KIANNA MENESES MD 786.50 CHEST PAIN 08/07/2012 KIANNA MENESES MD 786.50 CHEST PAIN 11/12/2012 EMILY MAC MD, FACC FACP CCDS Ot 244.9 HYPOTHYROIDISM NOS 11/12/2012 BUBBA ROBERTS FACC, EMILY FACP CCDS Ot 272.4 HYPERLIPIDEMIA NEC/NOS 11/12/2012 BUBBA ROBERTS FACC ALI FACP CCDS Ot 311 DEPRESSIVE DISORDER NEC 11/12/2012 BUBBA ROBERTS FACC ALI FACP CCDS Ot 401.9 HYPERTENSION NOS 11/12/2012 BUBBA ROBERTS FACC, ALI FACP CCDS Ot 786.50 CHEST PAIN NOS 11/12/2012 BUBBA ROBERTS FACC, ALI FACP CCDS Ot V17.49 FAMILY HISTORY OF OTHER CARDIOVASCULAR D 11/12/2012 EMILY MAC MD, FACC FACP CCDS Ot V58.69 OTH MED,LT,CURRENT USE 06/06/2013 OMER VP CLINICAL, BOBBI R 787.01 NAUSEA WITH VOMITING 06/06/2013 OMER VP CLINICAL, BOBBI R 787.60 FULL INCONTINENCE OF FECES 06/06/2013 OMER BOYERN, BOBBI R 787.01 NAUSEA WITH VOMITING 06/06/2013 [...] MENESES MD 530.81 GERD 07/04/2016 EVETTE CERVANTES 276.8 HYPOPOTASSEMIA 07/04/2016 EVETTE CERVANTES A 466.0 ACUTE BRONCHITIS 07/04/2016 EVETTE CERVANTES 493.92 ASTHMA, UNSPECIFIED WITH (ACUTE) EXACERBATION 07/04/2016 EVETTE CERVANTES E87.6 HYPOKALEMIA 07/04/2016 EVETTE CERVANTES J20.9 ACUTE BRONCHITIS, UNSPECIFIED 07/04/2016 EVETTE CERVANTES J45.901 UNSPECIFIED ASTHMA WITH (ACUTE) EXACERBATION 10/09/2016 EVETTE CERVANTES 668.81 OTHER COMPLICATIONS OF ANESTHESIA OR OTHER SEDATION IN LABOR AND DELIVERY, DELIVERED, WITH OR WITHOUT MENTION OF ANTEPARTUM CONDITION 10/09/2016 EVETTE CERVANTES 780.79 OTHER MALAISE AND FATIGUE 10/09/2016 EVETTE CERVANTES 786.5 CHEST PAIN 10/09/2016 EVETTE CERVANTES 848.8 OTHER SPECIFIED SITES OF SPRAINS AND STRAINS 10/09/2016 EVETTE CERVANTES R07.89 OTHER CHEST PAIN 10/09/2016 EVETTE CERVANTES R51 HEADACHE 10/09/2016 EVETTE CERVANTES R53.83 OTHER [...] 786.50 CHEST PAIN NOS 05/11/2017 BUBBA ROBERTS FAC, ALI FAC CCDS Ot 786.50 CHEST PAIN NOS 06/03/2017 [...] MD Ot 397.0 TRICUSPID VALVE DISEASE 06/25/2017 JIMMIE ROBERTS, SARAHI Ot 424.0 MITRAL VALVE DISORDER 06/25/2017 SARAHI SAMUEL MD Ot 786.50 CHEST PAIN NOS 06/25/2017 BUBBA ROBERTS FAC, ALI OBEDP CCDS Ot 786.50 CHEST PAIN NOS 06/25/2017 CHELY PETERS APRN Ot J45.909 UNSPECIFIED ASTHMA, UNCOMPLICATED 06/25/2017 CHELSY MORALES Ot E03.9 HYPOTHYROIDISM, UNSPECIFIED 06/25/2017 CHELSY MORALES Ot J30.89 OTHER ALLERGIC RHINITIS 06/25/2017 CHELSY MORALESP Ot J45.50 SEVERE PERSISTENT ASTHMA, UNCOMPLICATED 07/03/2017 CHELY PETERS VP CLINICAL Ot J42 UNSPECIFIED CHRONIC BRONCHITIS 07/03/2017 CHELY PETERS VP CLINICAL Ot J45.909 UNSPECIFIED ASTHMA, UNCOMPLICATED 07/08/2017 CHELY PETERS VP CLINICAL Ot J42 UNSPECIFIED CHRONIC BRONCHITIS 07/08/2017 CHELY PETERS VP CLINICAL Ot J45.909 UNSPECIFIED ASTHMA, UNCOMPLICATED 07/19/2017 FRANCHELY MARSH VP CLINICAL Ot J42 UNSPECIFIED CHRONIC BRONCHITIS 07/19/2017 CHELY PETERS VP CLINICAL Ot J45.909 UNSPECIFIED ASTHMA, UNCOMPLICATED 07/27/2017 KEIRA PENA APRN Ot E05.90 THYROTOXICOSIS, UNSP WITHOUT THYROTOXIC 07/27/2017 KEIRA PENA APRN Ot F41.9 ANXIETY DISORDER, UNSPECIFIED 07/27/2017 KEIRA PENA APRN Ot J45.901 UNSPECIFIED ASTHMA WITH (ACUTE) EXACERBA 07/27/2017 KEIRA PENA APRN Ot R05 COUGH 07/27/2017 KEIRA PENA APRN Ot 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 07/27/2017 Ot [...] 786.50 CHEST PAIN NOS 07/27/2017 CHELY PETERS APRN Ot J42 UNSPECIFIED CHRONIC BRONCHITIS 07/27/2017 CHELY PETERS VP CLINICAL Ot J45.909 UNSPECIFIED ASTHMA, UNCOMPLICATED 07/27/2017 CHELY PETERS VP CLINICAL Ot J45.909 UNSPECIFIED ASTHMA, UNCOMPLICATED 07/27/2017 CHELSY MORALES OFFICE 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 Ot E03.9 HYPOTHYROIDISM, UNSPECIFIED 07/27/2017 CHELSY MORALES OFFICE 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 Ot J30.89 OTHER ALLERGIC RHINITIS 07/27/2017 CHELSY MORALES OFFICE 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 Ot J45.50 SEVERE PERSISTENT ASTHMA, UNCOMPLICATED 07/30/2017 KEIRA PENA APRN Ot E05.90 THYROTOXICOSIS, UNSP WITHOUT THYROTOXIC 07/30/2017 KEIRA PENA APRN Ot F41.9 ANXIETY DISORDER, UNSPECIFIED 07/30/2017 KEIRA PENA APRN Ot J45.901 UNSPECIFIED ASTHMA WITH (ACUTE) EXACERBA 07/30/2017 KERIA PENA APRN Ot R05 COUGH 07/30/2017 KEIRA PENA APRN Ot Z79.52 GROUP HOME (CURRENT) USE OF SYSTEMIC STER 11/17/2017 KEIRA PENA APRN Ot E03.9 HYPOTHYROIDISM, UNSPECIFIED 11/17/2017 KEIRA PENA APRN Ot F41.9 ANXIETY DISORDER, UNSPECIFIED 11/17/2017 KEIRA PENA APRN Ot J45.901 UNSPECIFIED ASTHMA WITH (ACUTE) EXACERBA 11/17/2017 KEIRA PENA APRN Ot R06.02 SHORTNESS OF BREATH 11/17/2017 KEIRA PENA APRN Ot 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 11/17/2017 KEIRA PENA APRN Ot Z98.890 OTHER SPECIFIED POSTPROCEDURAL STATES 01/20/2018 EVETTE CERVANTES 465.8 ACUTE UPPER RESPIRATORY INFECTIONS OF OTHER MULTIPLE SITES 01/20/2018 EVETTE CERVANTES 491.21 OBSTRUCTIVE CHRONIC BRONCHITIS WITH (ACUTE) EXACERBATION 01/20/2018 EVETET CERVANTES J06.9 ACUTE UPPER RESPIRATORY INFECTION, UNSPECIFIED 01/20/2018 EVETTE CERVANTES J44.1 CHRONIC OBSTRUCTIVE PULMONARY DISEASE W (ACUTE) EXACERBATION 02/19/2018 Richmond Love 491.20 OBSTRUCTIVE CHRONIC BRONCHITIS, WITHOUT EXACERBATION 02/19/2018 Richmond Love J44.9 CHRONIC OBSTRUCTIVE PULMONARY DISEASE, UNSPECIFIED 04/03/2018 CHELY PETERS VP CLINICAL Ot J42 UNSPECIFIED CHRONIC BRONCHITIS 04/03/2018 CHELY PETERS APRN Ot J45.909 UNSPECIFIED ASTHMA, UNCOMPLICATED 04/04/2018 KEIRA PENA APRN Ot E03.9 HYPOTHYROIDISM, UNSPECIFIED 04/04/2018 KEIRA PENA APRN Ot F41.9 ANXIETY DISORDER, UNSPECIFIED 04/04/2018 KEIRA PENA VP CLINICAL Ot J45.901 UNSPECIFIED ASTHMA WITH (ACUTE) EXACERBA 04/04/2018 KEIRA PENA VP CLINICAL Ot R06.02 SHORTNESS OF BREATH Procedures Code Description [place] [address] ROUTINE VENIPUNCTURE 05/13/2012 64647 THERAPUTIC INJ SQ/IM 05/13/2012 J1040 DEPO MEDROL 80 MG INJ 05/13/2012 58736 TSH 05/14/2012 69224 XRAY CHEST 2 VIEW 06/13/2012 LIZETT KIDD 06/13/2012 95160 ROUTINE VENIPUNCTURE 08/07/2012 74694 XRAY CHEST 2 VIEW 08/07/2012 96272 CMP 08/07/2012 79582 LIPID PANEL 08/07/2012 89959 BNP 08/07/2012 07601 TSH 08/07/2012 31507 CBC 08/07/2012 60226 CRP HS (CARDIO) 08/07/2012 45291 EKG, TRACING (IN-HOUSE) 08/07/2012 51018 PULMONARY FUNCTION TEST (IN- HOUSE) 08/07/2012 IVON STEVESARAHI ESTRADA 08/07/2012 32203 ECHO 2D 10/23/2012 00586 ROUTINE VENIPUNCTURE 11/15/2012 04947 TSH 11/15/2012 12895 OXIMETRY 11/15/2012 34805 OXIMETRY 11/22/2012 PULMONARY NUDNAVI BYRNEUS 11/22/2012 29091 OXIMETRY 12/13/2012 82811 OXIMETRY 12/17/2012 17154 ROUTINE VENIPUNCTURE 06/06/2013 27281 INFLUENZA A & B (IN-HOUSE) 06/06/2013 59439 UA W/ CULTURE IF INDICATED 06/06/2013 23975 CBC 06/06/2013 12924 CMP 06/06/2013 2952232 GFR CALC (RESULT ONLY) 06/06/2013 32364 LIPASE 06/06/2013 61432 BNP 06/06/2013 67992 OXIMETRY 07/17/2013 Cardiolog Emily Mac 07/17/2013 07126 EKG, TRACING (IN-HOUSE) 09/24/2013 54629 ECHO 2D 10/08/2013 95194 XRAY CHEST 2 VIEW 10/22/2013 85680 OXIMETRY 01/19/2014 96910 ROUTINE VENIPUNCTURE 02/27/2014 39539 TSH 02/27/2014 Results Test Result Range CBC with Auto Diff - 07/03/16 23:10 Baso% 0.70 % 0.00-2.50 Eos 0.7 K/uL 0.0-0.7 Eos% 12.7 % 0.0-7.0 Hct 43.0 % 42.0-52.0 Hgb 14.6 g/dL 14.0-17.0 Lym 0.81 K/uL 0.60-3.40 Lym% 14.3 % 10.0-50.0 MCH 29.9 pg 27.0-31.2 MCHC 34.0 g/dL 32.0-36.0 MCV 87.9 fL 80.0-97.0 Alfalfa% 7.2 % 0.0-12.0 MPV 10.1 fL 7.4-10.0 Miguel% 65.1 % 37.0-80.0 Plt 227 K/uL 150-400 RBC 4.89 M/uL 4.20-5.40 RDW 12.0 % 11.6-14.8 WBC 5.68 K/uL 5.00-10.00 Miguel 3.70 K/uL 2.00-6.90 Alfalfa 0.4 K/uL 0.0-0.9 Baso 0.0 K/uL 0.0-0.2 [...] 5-8.5 Urine-Protein 1+ Negative Urine-RBC Negative Urine-Specific Brogan >=1.030 1.000-1.030 Urine-WBC 2-5/HPF Urobilinogen 1.0 E.U./dL [...] NRG Blood erythrocyte morphology finding identification NORMAL NR Comprehensive metabolic panel - 05/11/17 10:51 Serum [...] THYROID STIMULATING HORMONE 3.54 u[iU]/mL 0.35-4.94 [facility] GENERAL PROFILE - 05/31/17 10:09 [id number] SEE FOOTNOTE NRG Serum Alternaria alternata IgE [...] class [presence] in serum CLASS 0 NRG [place] house dust mite IgE ab [facility] class [...] - 03/18/18 09:36 TSH 7.99 mIU/L 0.40-4.50 Complete blood count (CBC) with automated white blood cell (WBC) differential - 04/02/18 21:34 Blood leukocytes automated count (number/volume) 8.5 10*3/uL 4.3-11.0 Blood erythrocytes automated count (number/volume) 5.26 10*6/uL 4.35-5.85 Venous blood hemoglobin measurement (mass/volume) 15.6 g/dL 13.3-17.7 Blood hematocrit (volume fraction) 47 % 40-54 Automated erythrocyte mean corpuscular volume 90 [foz_us] 80-99 Automated erythrocyte mean corpuscular hemoglobin (mass per erythrocyte) 30 pg 25-34 Automated erythrocyte mean corpuscular hemoglobin concentration measurement ( mass/volume) 33 g/dL 32-36 Automated erythrocyte distribution width ratio 12.8 % 10.0-14.5 Automated blood platelet count (count/volume) 232 10*3/uL 130-400 Automated blood platelet mean volume measurement 10.3 [foz_us] 7.4-10.4 Automated blood neutrophils/100 leukocytes 53 % 42-75 Automated blood lymphocytes/100 leukocytes 26 % 12-44 Blood monocytes/100 leukocytes 6 % 0-12 Automated blood eosinophils/100 leukocytes 15 % 0-10 Automated blood basophils/100 leukocytes 1 % 0-10 Blood neutrophils automated count (number/volume) 4.5 10*3 1.8-7.8 Blood lymphocytes automated count (number/volume) 2.2 10*3 1.0-4.0 Blood monocytes automated count (number/volume) 0.6 10*3 0.0-1.0 Automated eosinophil count 1.2 10*3/uL 0.0-0.3 Automated blood basophil count (count/volume) 0.1 10*3/uL 0.0-0.1 Comprehensive metabolic panel - 04/02/18 21:34 Serum or plasma sodium measurement (moles/volume) 140 mmol/L 135-145 Serum or plasma potassium measurement (moles/volume) 3.7 mmol/L 3.6-5.0 Serum or plasma chloride measurement (moles/volume) 104 mmol/L 98-107 Carbon dioxide 21 mmol/L 21-32 Serum or plasma anion gap determination (moles/volume) 15 mmol/L 5-14 Serum or plasma urea nitrogen measurement (mass/volume) 9 mg/dL 7-18 Serum or plasma creatinine measurement (mass/volume) 0.87 mg/dL 0.60-1.30 Serum or plasma urea nitrogen/creatinine mass ratio 10 NRG Serum or plasma creatinine measurement with calculation of estimated glomerular filtration rate > NRG Serum or plasma glucose measurement (mass/volume) 103 mg/dL 70-105 Serum or plasma calcium measurement (mass/volume) 10.6 mg/dL 8.5-10.1 Serum or plasma total bilirubin measurement (mass/volume) 0.5 mg/dL 0.1-1.0 Serum or plasma alkaline phosphatase measurement (enzymatic activity/volume) 95 U/L 40-136 Serum or plasma aspartate aminotransferase measurement (enzymatic activity/ volume) 20 U/L 5-34 Serum or plasma alanine aminotransferase measurement (enzymatic activity/volume ) 24 U/L 0-55 Serum or plasma protein measurement (mass/volume) 8.4 g/dL 6.4-8.2 Serum or plasma albumin measurement (mass/volume) 4.8 g/dL 3.2-4.5 Encounters ACCT No. Visit Date/Time Discharge Status Pt. Type Provider Facility Loc./Unit Complaint [id number] 07/13/2014 15:58:00 07/13/2014 23:59:59 CLS Outpatient ZAIRA ROBERTS, KIANNA Renner [id number] 02/27/2014 10:40:00 02/27/2014 23:59:59 CLS Outpatient KIANNA MENESES MD [id number] 01/19/2014 13:44:00 01/19/2014 23:59:59 CLS Outpatient KIANNA MENESES MD [id number] 12/16/2013 14:02:00 12/16/2013 23:59:59 CLS Outpatient KIANNA MENESES MD [id number] 12/09/2013 10:27:00 12/09/2013 23:59:59 CLS Outpatient KIANNA MENESES MD [id number] 10/22/2013 08:50:00 10/22/2013 23:59:59 CLS Outpatient BOBBI TELLO APRN [id number] 07/10/2013 10:08:00 07/10/2013 23:59:59 CLS Outpatient BOBBI TELLO APRN [id number] 06/06/2013 14:14:00 06/06/2013 23:59:59 CLS Outpatient BOBBI TELLO APRN [id number] 03/24/2013 09:45:00 03/24/2013 23:59:59 CLS Outpatient MICHELLE MOLINA APRN [id number] 08/07/2012 09:32:00 08/07/2012 23:59:59 CLS Outpatient BELKYS PENA DO [id number] 06/13/2012 08:35:00 06/13/2012 23:59:59 [place] [id number] 05/13/2012 10:13:00 05/13/2012 23:59:59 CLS Outpatient BELKYS PENA DO [id number] 12/13/2012 13:15:00 Document Registration [id number] 11/22/2012 11:11:00 Document Registration [id number] 11/15/2012 10:57:00 Document Registration [id number] 10/16/2012 11:41:00 Document Registration [id number] 04/02/2018 20:25:00 04/02/2018 23:21:00 DIS Outpatient KEIRA PENA APRN [facility] ER COPD BOTHERING HIM, R SHOULDER PAIN [id number] 11/17/2017 16:10:00 11/17/2017 17:53:00 DIS Emergency KEIRA PENA APRN [facility] ER COPD,"NEEDS BREATHING TREATMENT" [id number] 07/27/2017 13:26:00 07/27/2017 15:27:00 DIS Emergency KEIRA PENA VP CLINICAL [facility] ER ASTHMA/SOB/COUGH/N/V/ FEVER [id number] 07/02/2017 09:04:00 07/02/2017 23:59:59 CLS Outpatient CHELY PETERS APRN [facility] RT ASTHMA [id number] 06/19/2017 14:01:00 06/19/2017 23:59:59 CLS Preadmit CHELY PETERS APRN [facility] SLEEP G47.9 SLEEP DISORDER [id number] 06/10/2017 13:00:00 06/10/2017 13:39:00 DIS Outpatient CHELY PETERS APRN [facility] SLEEP G47.10 [id number] 06/03/2017 21:34:00 06/03/2017 23:21:00 DIS Emergency EARNESTINE LEIVA MD [facility] ER WEAK RECTAL BLEED [id number] 05/31/2017 09:41:00 05/31/2017 23:59:59 CLS Outpatient CHELSY MORALES [facility] LAB E03.9 J45.50J30.89 [id number] 05/31/2017 09:37:00 05/31/2017 23:59:59 CLS Outpatient CHELY PETERS APRN [facility] RAD J45.909 R06.00 [id number] 05/11/2017 10:14:00 05/11/2017 12:12:00 DIS Emergency EDWIN PETER MD [facility] ER BREATHING ISSUES, ASTHMA-- [id number] 05/10/2017 17:52:00 05/10/2017 18:30:00 DIS Emergency EDWIN PETER MD [facility] ER TROUBLE BREATHING; WANTS CHECKED FOR MENINGITIS [id number] 10/08/2013 09:47:00 10/08/2013 23:59:59 CLS Outpatient BUBBA ROBERTS FACCEMILY FACP CCDS [facility] CARD CHEST PAIN [id number] 11/12/2012 10:01:00 11/12/2012 18:08:00 DIS Outpatient BUBBA ROBERTS FACC, EMILY CORRALES CCDS [facility] CATH CP,HTN [id number] 10/28/2012 09:39:00 10/28/2012 23:59:59 CLS Outpatient JIMMIE ROBERTS, SARAHI [facility] CARD CP [id number] 04/11/2018 21:27:00 ACT Emergency ÓSCAR ROBERTS, TONJA Freeman [facility] ER FINGER LAC [id number] 06/18/2012 21:53:00 Document Registration [id number] 05/30/2012 15:52:00 Document Registration [id number] 03/12/2012 10:40:00 Document Registration [id number] 02/27/2012 00:00:00 Document Registration [id number] 02/20/2012 19:38:00 Document Registration [id number] 01/27/2012 23:40:00 Document Registration [id number] 01/19/2012 18:00:00 Document Registration [id number] 01/14/2012 18:51:00 Document Registration [id number] 01/08/2012 19:51:00 Document Registration [id number] 12/23/2011 15:40:00 Document Registration [id number] 12/07/2011 12:34:00 Document Registration [id number] 12/07/2011 12:33:00 Document Registration [id number] 08/23/2016 08:35:00 Document Registration [id number] 04/08/2018 13:12:00 04/08/2018 14:24:00 [id number] 02/19/2018 16:36:00 02/19/2018 17:46:00 [facility] [id number] 01/20/2018 13:59:00 01/20/2018 16:00:00 [id number] 10/09/2016 21:45:00 10/09/2016 23:45:00 [facility] [id number] 07/03/2016 22:54:00 07/04/2016 00:25:00 [id number] 07/03/2016 23:07:35 Document Registration [id number] 05/18/2017 08:40:00 05/18/2017 23:59:59 CLS Outpatient CHELSY MORALES APRN [facility] [id number] 03/18/2018 09:20:00 Document Registration [id number] 07/03/2016 22:54:00 Document Registration
--- NOTE | 2018-04-11 22:22 | ED General ---
General Chief Complaint: Skin/Wound Problems Stated Complaint: FINGER LAC Nursing Triage Note: PT PRESENTS TO ER WITH COMPLAINT OF WOUND. PT STATES HE HAD STITCHES PLACED AT [employer]. WAS AT WORK TODAY AND STARTED BLEEDING. BOSS WANTED PTS WOUND RECHECKED. PT ALSO NEEDS A WORK NOTE. Nursing Sepsis Screen: No Definite Risk Source of Information: Patient Exam Limitations: No Limitations History of Present Illness Date Seen by Provider: Apr 11, 2018 Time Seen by Provider: 22:21 Allergies and Home Medications Allergies Coded Allergies: No Known Drug Allergies (Unverified , 05/04/11) Home Medications Albuterol Sulfate 2.5 Mg/3 Ml Vial.neb, 2.5 MG IH Q4H PRN for WHEEZING Prescribed by: KEIRA PENA on 07/27/17 1448 Azithromycin 250 Mg Tablet, 250 MG PO UD TAKE 2 TABLETS TODAY, THEN TAKE 1 TABLET DAILY FOR 4 MORE DAYS Prescribed by: KEIRA PENA on 04/02/182240 Levothyroxine Sodium 50 Mcg Tablet, 50 MCG PO DAILY, (Reported) Pramoxine HCl 15 Gm Foam, 1 APPLIC TP QID Prescribed by: EARNESTINE WILKERSON on 06/03/17 2315 Prednisone 20 Mg Tab, 40 MG PO DAILY Prescribed by: KEIRA PENA on 07/27/17 1448 Prednisone 5 Mg Tablet, 5 MG PO UD 40 mg daily for 4 days. Prescribed by: KEIRA PENA on 04/02/182240 Past Szscbhz-Lrllaj-Rrkzxa Hx Patient Social History Alcohol Use: Occasionally Uses Recreational Drug Use: No Smoking Status: Never a Smoker 2nd Hand Smoke Exposure: No Recent Foreign Travel: No Contact w/Someone Who Travel: No Recent Infectious Disease Expo: No Recent Hopitalizations: Yes Immunizations Up To Date Tetanus Booster (TDap): Less than 5yrs PED Vaccines UTD: Yes Past Medical History Surgeries: Yes (HEART CATH 2011) Respiratory: Yes (has rescue inhaler is not aware of having asthma) Cardiac: No Neurological: No Reproductive Disorders: No Genitourinary: No Gastrointestinal: No Musculoskeletal: No Endocrine: Yes Hypothyroidsim HEENT: No Cancer: No Psychosocial: No Anxiety Integumentary: No Blood Disorders: No Physical Exam Vital Signs Vital Signs - First Documented 04/11/18 22:00 Temp 98.0 Pulse 88 Resp 20 B/P (MAP) 125/88 (100) Pulse Ox 97 O2 Delivery Room Air Capillary Refill : Less Than 3 Seconds Height, Weight, BMI Height: 5'9.00" Weight: 210lbs. 0oz. 95.345624iz; BMI Method:Stated Progress/Results/Core Measures Suspected Sepsis Recent Fever Within 48 Hours: No Infection Criteria Present: None New/Unexplained Altered Menta: No Sepsis Screen: No Definite Risk SIRS Temperature:98.0 Pulse: 88 Respiratory Rate: 20 Blood Pressure 125 /88 Mean: 100 Results/Orders Vital Signs/I&O 04/11/18 22:00 Temp 98.0 Pulse 88 Resp 20 B/P (MAP) 125/88 (100) Pulse Ox 97 O2 Delivery Room Air Capillary Refill : Less Than 3 Seconds Blood Pressure Mean: 100 Departure Impression Primary Impression: Laceration of thumb Disposition: HOME, SELF-CARE Condition: Improved Departure-Patient Inst. Decision time for Depature: 22:21 Referrals: [facility] (PCP/Family) Primary Care Physician Patient Instructions: Wound Care (DC) Add. Discharge Instructions: All discharge instructions reviewed with patient and/or family. Voiced understanding. Tylenol and ibuprofen kzmk-vvp-kydmrox as directed for pain. Finger splint as instructed. Wash the wound twice daily with antibacterial soap , pat dry, and cover with a Band-Aid. Follow-up with your primary care provider for recheck tomorrow. Call for appointment time first thing in the morning. Return to the emergency department for worsened symptoms or any other concerns. Work/School Note: Work Release Form Date Seen in the Emergency Department: Apr 11, 2018 Return to Work: Apr 12, 2018 Other Restrictions Listed Below: Keep the wound clean and dry. CINTHIA GIBBS Apr 11, 2018 22:22
[2018-04-11 22:24] VITALS: BP 125/88
== END 2018-04-11 22:29 | disposition home or self-care (01) ==
LOC: EDUNIT# 21:25 → ER 21:27
DX: S61.011D Laceration without foreign body of right thumb without damage to nail, subsequent encounter (principal); J45.909 Unspecified asthma, uncomplicated; E03.9 Hypothyroidism, unspecified; F41.9 Anxiety disorder, unspecified; Z79.51 Long term (current) use of inhaled steroids; Z79.52 Long term (current) use of systemic steroids; Z98.890 Other specified postprocedural states; X58.XXXD Exposure to other specified factors, subsequent encounter

== ENCOUNTER 2018-07-06 01:03 | Emergency (ER) | payer OTHER ==
[~2018-07-06] VITALS: Ht 175.3 cm; Wt 95.3 kg
--- OUTSIDE RECORDS SUMMARY | 2018-07-06 01:12 | XMS REPORT ---
Author Author ALEA COOK [facility] Address [address] [place] [address] Care Team Providers Care Telephone Service Representative Name Role Phone ALEA COOK Unavailable PROBLEMS Type Condition ICD9-CM Code UVP74-AK Code Onset Dates Condition Status SNOMED Code Problem Moderate persistent asthma with acute exacerbation J45.41 Active 077392405423632 Problem Hypothyroidism, unspecified type E03.9 Active 65436187 Problem Hypothyroidism (acquired) E03.9 Active 524432020 Problem Moderate persistent asthma without complication J45.40 Active 997977643 Problem Seasonal allergic rhinitis due to pollen J30.1 Active 87608558 Problem Essential hypertension I10 Active 21325282 ALLERGIES No Known Allergies ENCOUNTERS Encounter Location Date Diagnosis [facility] [address] [address] Apr, Acute pancreatitis, unspecified complication status, unspecified pancreatitis type K85.90 ; Dysuria R30.0 ; Hypothyroidism, unspecified type E03.9 and Moderate persistent asthma with acute exacerbation J45.41 [place] [address] [id number] [place] [address] Mar, [facility] [id number] [place] [address]- 8158 Mar, Hypothyroidism, unspecified type E03.9 [facility] [id number] [place] [address]- [address] Mar, Seasonal allergic rhinitis due to pollen J30.1 ; Moderate persistent asthma without complication J45.40 and Essential hypertension I10 [place] [id number] [place] [address] Feb, [facility] [address] [address] Jan, Moderate persistent asthma with acute exacerbation J45.41 [facility] [id number] [place] [address] 47792- 7438 Jan, [facility] [id number] [place] [address]14- [address]35 May, Severe persistent asthma without complication J45.50 ; Chronic nonseasonal allergic rhinitis due to other allergen J30.89 and Hypothyroidism, unspecified type E03.9 [facility] [id number] [place] [address]25- 0197 Apr, [facility] [address] [address] Apr, [facility] [id number] [place] [address] 96886- 5296 Apr, [facility] [address] [address] Mar, Hypothyroidism (acquired) E03.9 [facility] [id number] [place] [address]14- 7115 Mar, [facility] [id number] [place] [address] 30112- 1141 Mar, Chest wall pain R07.89 [facility] [id number] [place] [address] 11027- 8120 Mar, [facility] [id number] [place] [address] 18921- 2314 Dec, Moderate persistent asthma without complication J45.40 [facility] [id number] [place] [address] 43013- 5463 Nov, [facility] [id number] [place] [address] 63353- 1844 Aug, Moderate persistent asthma with acute exacerbation J45.41 and Hypothyroidism, unspecified type E03.9 [facility] [id number] [place] [address] 24301- 6451 Aug, Moderate persistent asthma with acute exacerbation J45.41 and Hypothyroidism, unspecified type E03.9 [facility] [address] [address] 14 Sep, 2014 [facility] [address], [place] [address] Sep, [facility] [address] [place] [address] Jul, [facility] [id number] [place] [address]108- 5813 Jul, [facility] [address] [place] [address] Jun, [facility] [id number] [place] [address] 80818- 6267 Jun, [facility] [id number] [place] [address] 09864- 2257 Jun, [facility] [id number] [place] [address] 22411- 3599 Jun, [facility] [address] [place] [address] Jun, [facility] [address] [address] Jun, [facility] [address] [place] [address] May, [facility] [address] [place] [address] May, [facility] [address] [place] [address] Apr, [facility] [address] [address] Apr, [facility] [address] [place] [address] Apr, [facility] [address] [place] [address] Apr, [facility] [address] [facility] [place] [place] [address] Feb, [facility] [id number] [address] Feb, [facility] [address] [facility] [place] [place] [address] Feb, [facility] [id number] [address] Feb, [facility] [address] [facility] [place] [place] [address] Jan, [facility] [id number] [address] Jan, [facility] [address] [facility] [place] [place] [address] Dec, [facility] [id number] [address] Dec, [facility] [address] [facility] [place] [place] [address] Dec, [facility] [address] [facility] [place] [place] [address] Dec, [facility] [id number], [place] [address] Dec, [facility] [place] [facility] [id number] [address] Dec, [facility] [place] [facility] [id number], [place] [address] Nov, [facility] [place] [facility] [id number] [address] 9239 Nov, [facility] [place] [facility] [id number], [place] [address] 4256 Nov, [facility] [place] [facility] [id number], [place] [address] 9[address] Nov, [facility] [address] [id number] [place] [address]- [address]24 October, [facility] [address] [id number] [place] [address]- 6513 October, [facility] [place] [facility] [address] [id number] [place] [address]- 1741 October, [facility] [address] [id number] [place] [address] October, [facility] [address] [id number] [place] [address]- 8268 Sep, [facility] [place] [facility] [address] [id number] [place] [address]- 9350 Sep, [facility] [address] [id number] [place] [address]- 4039 Jul, [facility] [address] [id number] [place] [address]- 5533 Jun, [facility] [address] [id number] [place] [address]- 2658 Jun, [facility] [address] [id number] [place] [address]- 1676 Jun, [facility] [place] [facility] [address] [id number] [place] [address]- 2998 Jun, [facility] [place] [facility] [address] [id number] [place] [address]- 7353 Jun, [facility] [place] [facility] [address] [id number] [place] [address]- 8597 May, [facility] [place] [facility] [address] [id number] [place] [address]- 2135 May, [facility] [place] [facility] [address] [id number] [place] [address]- 1764 May, [facility] [place] [facility] [address] [id number] [place] [address]- 8942 May, [facility] [address] [id number] [place] [address]- 6112 Feb, [facility] [place] [facility] [address] [id number] [place] [address]- 2874 Dec, [facility] [place] [facility] [address] [id number] [place] [address]- 2890 Dec, [facility] [place] [facility] [address] [id number] [place] [address]- 1639 Dec, [facility] [place] [facility] [address] [id number] [place] [address]- 7867 Dec, [facility] [place] [facility] [address] [id number] [place] [address]- 7705 Dec, [facility] [place] [facility] [address] [id number] [place] [address]- 0992 Nov, [facility] [place] [facility] [address] [id number] [place] [address]- 0180 Nov, [facility] [place] [facility] [address] [id number] [place] [address]- 4492 Nov, [facility] [place] [facility] [address] [id number] [place] [address]- 4733 Nov, [facility] [place] [facility] [address] [id number], [place] [address]- 1685 October, [facility] [place] [facility] [address] [id number] [place] [address]- 4189 October, [facility] [place] [facility] [address] [id number] [place] [address]- 7303 October, [facility] [place] [facility] [address] [id number] [place] [address]- 5197 Aug, [facility] [place] [facility] [address] [id number] [place] [address]- 3828 Aug, [facility] [place] [facility] [address] [id number] [place] [address]- 2546 Jul, [facility] [address] [id number] [place] [address]- 6097 Jun, [facility] [place] [facility] [address] [id number] [place] [address]- 2546 Jun, [facility] [address] [id number] [place] [address]- 2631 May, [facility] [place] [facility] [address] [id number] [place] [address]- 0328 May, [facility] [address] [id number] [place] [address]- 9409 May, [facility] [address] [id number] [place] [address]- 9316 May, [facility] [address] [id number] [place] [address]- 9465 May, [facility] [address] [id number] [place] [address]- 1969 May, [facility] [place] [facility] [address] [id number] [place] [address]- 9423 May, [facility] [address] [id number] [place] [address]- 8990 Mar, [facility] [place] [facility] [address] [id number] [place] [address]- 7910 Mar, [facility] [place] [facility] [address] [id number] [place] [address]- 0249 Mar, [facility] [place] [facility] [address] [id number] [place] [address]- 2546 Feb, [facility] [place] [facility] [address] [id number] [place] [address]- 2546 Feb, [facility] [place] [facility] [address] [id number] [place] [address]- 8854 Feb, [facility] [place] [facility] [address] [id number] [place] [address]- 5998 05 Feb, 2011 [facility] [place] [facility] [address] [id number] [place] [address]- 5946 Feb, [facility] [place] [facility] [address] [id number] [place] [address]- 3607 Feb, [facility] [place] [facility] [address] [id number] [place] [address]- 4773 Jan, [facility] [place] [facility] [address] [id number] [place] [address]- 7135 Jan, [facility] [place] [facility] [address] [id number] [place] [address]- 2320 Jan, [facility] [place] [facility] [address] [id number] [place] [address]- 2550 Jan, [facility] [place] [facility] [address] [id number] [place] [address]- 6069 Jan, [facility] [place] [facility] [address] [id number] [place] [address]- 5246 Jan, [facility] [place] [facility] [address] [id number] [place] [address]- 9628 Jan, [facility] [place] [facility] [address] [id number] [place] [address]- 0717 Jan, [facility] [place] [facility] [address] [id number] [place] [address]- 0152 Jan, [facility] [place] [facility] [address] [id number] [place] [address]- 3897 Jan, [facility] [place] [facility] [address] [id number] [place] [address]- 4312 Jan, [facility] [place] [facility] [address] [id number] [place] [address]- 4150 Jan, [facility] [place] [facility] [address] [id number] [place] [address]- 2653 Dec, [facility] [place] [facility] [address] [id number] [place] [address]- 8777 30 Dec, 2011 [facility] [place] [facility] [address] [id number] [place] [address]- 9296 Dec, [facility] [place] [facility] [address] [id number] [place] [address]- 7096 Dec, [facility] [place] [facility] [address] [id number] [place] [address]- 9506 Dec, [facility] [place] [facility] [address] [id number] [place] [address]- 7359 Dec, [facility] [place] [facility] [address] [id number] [place] [address]- 6003 Nov, [facility] [place] [facility] [address] [id number] [place] [address]- 5719 Nov, [facility] [place] [facility] [address] [id number] [place] [address]- 3871 Nov, [facility] [place] [facility] [address] [id number] [place] [address]- 0964 Nov, [facility] [place] [facility] [address] [id number] [place] [address]- 8196 Nov, [facility] [place] [facility] [address] [id number] [place] [address]- 8501 October, [facility] [place] [facility] [address] [id number] [place] [address]- 3805 October, [facility] [place] [facility] [address] [id number] [place] [address]- 1128 October, [facility] [place] [facility] [address] [id number] [place] [address]- 4112 October, [facility] [place] [facility] [address] [id number] [place] [address]- 9349 October, [facility] [place] [facility] [address] [address] October, [facility] [address] October, [facility] [address], [place] [address]- 6503 October, [facility] [address], [place] [address]- 4395 October, [facility] [address] [address]73 October, [facility] [address] [place] [address]27366- 3456 October, [facility] [id number] [address]- 5198 October, [facility] [address], [place] [address]- 4205 Sep, [facility] [address], [place] [address]- 3020 Sep, [facility] [address], [place] [address]- 6[address] Sep, IMMUNIZATIONS No Known Immunizations SOCIAL HISTORY Never Assessed REASON FOR VISIT Pt states that he went to the ER on Sunday dt pain in the abdomen and back with some vomiting. Pt states they diagnosed him with Pancreatitis Carlos Miranda, Pt now states that the pain is still there but he is now having burning with urination that started yesterday Carlos MIRANDA PLAN OF CARE Activity Details Follow Up 3 Months Reason: Pending Test GC/CHLAM URINE (STATE) Pending Test UA LONG DIP (IN HOUSE) Pending Test CMP Pending Test LIPASE VITAL SIGNS Height 69 in 2018-05-03 Weight 223.6 lbs 2018-05-03 Temperature 96.4 degrees Fahrenheit 2018-05-03 Heart Rate 73 bpm 2018-05-03 Respiratory Rate 18 2018-05-03 BMI 33.02 kg/m2 2018-05-03 Blood pressure systolic 124 mmHg 2018-05-03 Blood pressure diastolic 86 mmHg 2018-05-03 MEDICATIONS Medication Instructions Dosage Frequency Start Date End Date Duration Status Albuterol Sulfate (2.5 MG/3ML) 0.083% Inhalation every 4-6 hours as needed 3 ml as needed Jan, Active Levothyroxine Sodium 100 MCG Orally Once a day 1 tablet on an empty stomach in the morning 24h Apr, 30 day(s) Active ProAir HFA 108 (90 Base) MCG/ACT Inhalation every 6 hrs 2 puffs as needed 6h Jan, Active Cetirizine HCl 10 mg Orally Once a day 1 tablet 24h Mar, Sep, 30 day(s) Active Advair Diskus 250-50 MCG/DOSE Inhalation Twice a day 1 puff 12h Jan, Active Nebulizer - inhalation every 6 hours as needed as directed Aug, Active Ondansetron 4 MG Orally TID PRN 1 tablet on the tongue and allow to dissolve as needed Apr, 7 days Active Lisinopril 10 mg Orally Once a day 1 tablet 24h Mar, 90 days Active RESULTS Name Result Date Reference Range CBC 2018-05-03 WHITE BLOOD CELL COUNT 5.9 3.8-10.8 RED BLOOD CELL COUNT 4.71 4.20-5.80 HEMOGLOBIN 14.2 13.2-17.1 HEMATOCRIT 42.8 38.5-50.0 MCV 90.9 80.0-100.0 MCH 30.1 27.0-33.0 MCHC 33.2 32.0-36.0 RDW 12.5 11.0-15.0 PLATELET COUNT 280 140-400 MPV 10.0 7.5-12.5 ABSOLUTE NEUTROPHILS 3174 [id number] ABSOLUTE LYMPHOCYTES 5086 [id number] ABSOLUTE MONOCYTES 401 200-950 ABSOLUTE EOSINOPHILS 555 15-500 ABSOLUTE BASOPHILS 59 0-200 NEUTROPHILS 53.8 LYMPHOCYTES 29.0 MONOCYTES 6.8 EOSINOPHILS 9.4 BASOPHILS 1.0 PROCEDURES Procedure Date Ordered Result Body Site COMPREHEN METABOLIC PANEL May 03, 2018 COMPLETE CBC W/AUTO DIFF WBC May 03, 2018 URINALYSIS, AUTO, W/O SCOPE May 03, 2018 No Charge May 03, 2018 ASSAY OF LIPASE May 03, 2018 URINE-NO MICRO May 03, 2018 VENIPUNCT, ROUTINE* May 03, 2018 INSTRUCTIONS MEDICATIONS ADMINISTERED No Known Medications MEDICAL (GENERAL) HISTORY Type Description Date Medical History asthma Medical History hypothyroid Medical History Gerd Medical History COPD, severe Medical History GERARDO, uses CPAP Surgical History heart cath no interventions Hospitalization History asthma, shortness of breath x4 Hospitalization History chest pain Hospitalization History [facility] 2018
--- OUTSIDE RECORDS SUMMARY | 2018-07-06 01:17 | XMS REPORT | Continuity of Care Document ---
Author Author Formerly [facility] Address Unknown Phone Unavailable Allergies Active Description Code Type Severity Reaction Onset Reported/Identified Relationship to Patient Clinical Status Yes NO KNOWN DRUG ALLERGIES NO KNOWN DRUG ALLERG UNKNOWN Yes NO KNOWN DRUG ALLERGIES UNKNOWN NO KNOWN DRUG ALLERG Yes No Known Drug Allergies [id number] Drug Allergy Unknown N/A 05/04/2011 Medications Medication [...] MOLINA APRN 780.4 Dizziness And Giddiness 10/05/2011 MICHLELE MOLINA APRN 784.0 Headache 10/05/2011 MICHELLE MOLINA [...] R 578.1 Blood In Stool 10/05/2011 OMER CONDENSER TUBE TENDER, BOBBI R 599.70 Hematuria Unspecified 10/05/2011 OMER CONDENSER TUBE TENDER, BOBBI R 780.4 Dizziness And Giddiness 10/05/2011 OMER CONDENSER TUBE TENDER, BOBBI R 784.0 Headache 10/05/2011 OMER CONDENSER TUBE TENDER, BOBBI R 790.4 Abnormal Lft (elevated) 10/05/2011 OMER CONDENSER TUBE TENDER, BOBBI R 799.22 Irritability 10/05/2011 OMER CONDENSER TUBE TENDER, BOBBI R V58.69 LONG-TERM (CURRENT) USE OF OTHER MEDICATIONS 10/05/2011 OMER CONDENSER TUBE TENDER BOBBI R 578.1 Blood In Stool 10/05/2011 OMER CONDENSER TUBE TENDER, BOBBI R 599.70 Hematuria Unspecified 10/05/2011 OMER CONDENSER TUBE TENDER, BOBBI R 780.4 Dizziness And Giddiness 10/05/2011 OMER CONDENSER TUBE TENDER, BOBBI R 784.0 Headache 10/05/2011 OMER BOYERN, BOBBI R 790.4 Abnormal Lft (elevated) 10/05/2011 OMER EASTMAN BOBBI R 799.22 Irritability 10/05/2011 OMER EASTMAN BOBBI R V58.69 LONG-TERM (CURRENT) USE OF OTHER MEDICATIONS 10/05/2011 KIANNA MENESES MD 578.1 Blood In Stool 10/05/2011 KIANNA MENESES MD 599.70 Hematuria Unspecified 10/05/2011 KIANNA MENESSE MD 780.4 Dizziness And Giddiness 10/05/2011 KIANNA [...] MOLINA APRN 466.0 Bronchitis, Acute 03/15/2012 OMER CONDENSER TUBE TENDER, BOBBI R 461.9 SINUSITIS ACUTE 03/15/2012 OMER CONDENSER TUBE TENDER, BOBBI R 466.0 Bronchitis, Acute 03/15/2012 OMER CONDENSER TUBE TENDER, BOBBI R 461.9 SINUSITIS ACUTE 03/15/2012 OMER CONDENSER TUBE TENDER, BOBBI R 466.0 Bronchitis, Acute 03/15/2012 OMER CONDENSER TUBE TENDER, BOBBI R 461.9 SINUSITIS ACUTE 03/15/2012 OMER CONDENSER TUBE TENDER, BOBBI R 466.0 Bronchitis, Acute 03/15/2012 ZAIRA [...] MOLINA APRN M 786.2 COUGH 06/13/2012 OMER CONDENSER TUBE TENDER, BOBBI R 466.0 BRONCHITIS, ACUTE 06/13/2012 OMER CONDENSER TUBE TENDER, BOBBI R 569.3 RECTAL BLEEDING 06/13/2012 OMER CONDENSER TUBE TENDER, BOBBI R 786.07 WHEEZING 06/13/2012 OMER CONDENSER TUBE TENDER, BOBBI R 786.09 DYSPNEA 06/13/2012 OMER CONDENSER TUBE TENDER, BOBBI R 786.2 COUGH 06/13/2012 OMER CONDENSER TUBE TENDER, BOBBI R 466.0 BRONCHITIS, ACUTE 06/13/2012 OMER CONDENSER TUBE TENDER, BOBBI R 569.3 RECTAL BLEEDING 06/13/2012 OMER CONDENSER TUBE TENDER, BOBBI R 786.07 WHEEZING 06/13/2012 OMER CONDENSER TUBE TENDER, BOBBI R 786.09 DYSPNEA 06/13/2012 OMER CONDENSER TUBE TENDER, BOBBI R 786.2 COUGH 06/13/2012 OMER CONDENSER TUBE TENDER, BOBBI R 466.0 BRONCHITIS, ACUTE 06/13/2012 OMER CONDENSER TUBE TENDER, BOBBI R 569.3 RECTAL BLEEDING 06/13/2012 OMER CONDENSER TUBE TENDER, BOBBI R 786.07 WHEEZING 06/13/2012 OMER CONDENSER TUBE TENDER, BOBBI R 786.09 DYSPNEA 06/13/2012 OMER CONDENSER TUBE TENDER, BOBBI R 786.2 COUGH 06/13/2012 ZAIRA ROBERTS, [...] MENESES MD 786.50 CHEST PAIN 11/12/2012 EMILY LEACH MD, FACC FACP CCDS Ot 244.9 HYPOTHYROIDISM [...] HISTORY OF OTHER CARDIOVASCULAR D 11/12/2012 EMILY LEACH MD, FACC FACP CCDS Ot V58.69 OTH MED,LT,CURRENT USE 06/06/2013 OMER CONDENSER TUBE TENDER, BOBBI R 787.01 NAUSEA WITH VOMITING 06/06/2013 OMER CONDENSER TUBE TENDER, BOBBI R 787.60 FULL INCONTINENCE OF FECES [...] TOX DIF GOITER NO CRISIS 05/11/2017 JIMMIE ROBERST, SARAHI Ot 397.0 TRICUSPID VALVE DISEASE 05/11/2017 [...] SEVERE PERSISTENT ASTHMA, UNCOMPLICATED 07/03/2017 CHELY PETERS CONDENSER TUBE TENDER Ot J42 UNSPECIFIED CHRONIC BRONCHITIS 07/03/2017 CHELY PETERS CONDENSER TUBE TENDER Ot J45.909 UNSPECIFIED ASTHMA, UNCOMPLICATED 07/08/2017 CHELY PETERS CONDENSER TUBE TENDER Ot J42 UNSPECIFIED CHRONIC BRONCHITIS 07/08/2017 CHELY PETERS CONDENSER TUBE TENDER Ot J45.909 UNSPECIFIED ASTHMA, UNCOMPLICATED 07/19/2017 FRANCHELY MARSH CONDENSER TUBE TENDER Ot J42 UNSPECIFIED CHRONIC BRONCHITIS 07/19/2017 CHELY PETERS CONDENSER TUBE TENDER Ot J45.909 UNSPECIFIED ASTHMA, UNCOMPLICATED 07/27/2017 KEIRA PENA APRN Ot E05.90 THYROTOXICOSIS, UNSP WITHOUT THYROTOXIC 07/27/2017 KEIRA PENA APRN Ot F41.9 ANXIETY DISORDER, UNSPECIFIED 07/27/2017 KEIRA PENA APRN Ot J45.901 UNSPECIFIED ASTHMA WITH (ACUTE) EXACERBA 07/27/2017 KEIRA PENA APRN Ot R05 COUGH 07/27/2017 KEIRA PENA APRN Ot Z79.52 BUSINESS DEVELOPMENT ASSOCIATE (CURRENT) USE OF SYSTEMIC STER 07/27/2017 Ot [...] J42 UNSPECIFIED CHRONIC BRONCHITIS 07/27/2017 CHELY PETERS CONDENSER TUBE TENDER Ot J45.909 UNSPECIFIED ASTHMA, UNCOMPLICATED 07/27/2017 CHELY PETERS CONDENSER TUBE TENDER Ot J45.909 UNSPECIFIED ASTHMA, UNCOMPLICATED 07/27/2017 CHELSY MORALES ANIMAL CRUELTY INVESTIGATION SUPERVISOR Ot E03.9 HYPOTHYROIDISM, UNSPECIFIED 07/27/2017 CHELSY MORALES ANIMAL CRUELTY INVESTIGATION SUPERVISOR Ot J30.89 OTHER ALLERGIC RHINITIS 07/27/2017 CHELSY MORALES ANIMAL CRUELTY INVESTIGATION SUPERVISOR Ot J45.50 SEVERE PERSISTENT ASTHMA, UNCOMPLICATED 07/30/2017 KEIRA PENA APRN Ot E05.90 THYROTOXICOSIS, UNSP WITHOUT THYROTOXIC 07/30/2017 KEIRA PENA APRN Ot F41.9 ANXIETY DISORDER, UNSPECIFIED 07/30/2017 KEIRA PENA APRN Ot J45.901 UNSPECIFIED ASTHMA WITH (ACUTE) EXACERBA 07/30/2017 KEIRA PENA APRN Ot R05 COUGH 07/30/2017 KEIRA PENA APRN Ot Z79.52 SENIOR CARE (CURRENT) USE OF SYSTEMIC STER 11/17/2017 KEIRA PENA APRN Ot E03.9 HYPOTHYROIDISM, UNSPECIFIED 11/17/2017 KEIRA PENA APRN Ot F41.9 ANXIETY DISORDER, UNSPECIFIED 11/17/2017 KEIRA PENA APRN Ot J45.901 UNSPECIFIED ASTHMA WITH (ACUTE) EXACERBA 11/17/2017 KEIRA PENA APRN Ot R06.02 SHORTNESS OF BREATH 11/17/2017 KEIRA PENA APRN Ot Z79.52 BUSINESS DEVELOPMENT ASSOCIATE (CURRENT) USE OF SYSTEMIC STER 11/17/2017 KEIRA [...] OBSTRUCTIVE PULMONARY DISEASE, UNSPECIFIED 04/03/2018 CHELY PETERS CONDENSER TUBE TENDER Ot J42 UNSPECIFIED CHRONIC BRONCHITIS 04/03/2018 CHELY PETERS APRN Ot J45.909 UNSPECIFIED ASTHMA, UNCOMPLICATED 04/04/2018 KEIRA PENA APRN Ot E03.9 HYPOTHYROIDISM, UNSPECIFIED 04/04/2018 KEIRA PENA APRN Ot F41.9 ANXIETY DISORDER, UNSPECIFIED 04/04/2018 KEIRA PENA CONDENSER TUBE TENDER Ot J45.901 UNSPECIFIED ASTHMA WITH (ACUTE) EXACERBA 04/04/2018 KEIRA PENA CONDENSER TUBE TENDER Ot R06.02 SHORTNESS OF BREATH 04/08/2018 Richmond Love A 883.1 OPEN WOUND OF FINGERS, COMPLICATED 04/08/2018 Richmond Love A S61.012A LACERATION W/O FB OF LEFT THUMB W/O DAMAGE TO NAIL, INIT 04/11/2018 CINTHIA MCCLURE Ot E03.9 HYPOTHYROIDISM, UNSPECIFIED 04/11/2018 CINTHIA MCCLURE Ot F41.9 ANXIETY DISORDER, UNSPECIFIED 04/11/2018 CINTHIA MCCLURE Ot J45.909 UNSPECIFIED ASTHMA, UNCOMPLICATED 04/11/2018 CINTHIA MCCLURE Ot S61.011D LACERATION W/O FB OF RIGHT THUMB W/O DAM 04/11/2018 CINTHIA MCCLURE Ot X58.XXXD EXPOSURE TO OTHER SPECIFIED FACTORS, SUB 04/11/2018 CINTHIA MCCLURE Ot Z79.51 BUSINESS DEVELOPMENT ASSOCIATE (CURRENT) USE OF INHALED STERO 04/11/2018 CINTHIA MCCLURE Ot Z79.52 BUSINESS DEVELOPMENT ASSOCIATE (CURRENT) USE OF SYSTEMIC STER 04/11/2018 CINTHIA MCCLURE Ot Z98.890 OTHER SPECIFIED POSTPROCEDURAL STATES 04/15/2018 CINTHIA MCCLURE Ot E03.9 HYPOTHYROIDISM, UNSPECIFIED 04/15/2018 CINTHIA MCCLURE Ot F41.9 ANXIETY DISORDER, UNSPECIFIED 04/15/2018 CINTHIA MCCLURE Ot J45.909 UNSPECIFIED ASTHMA, UNCOMPLICATED 04/15/2018 CINTHIA MCCLURE Ot S61.011D LACERATION W/O FB OF RIGHT THUMB W/O DAM 04/15/2018 CINTHIA MCCLURE Ot X58.XXXD EXPOSURE TO OTHER SPECIFIED FACTORS, SUB 04/15/2018 CINTHIA MCCLURE Ot Z79.51 BUSINESS DEVELOPMENT ASSOCIATE (CURRENT) USE OF INHALED STERO 04/15/2018 CINTHIA MCCLURE Ot Z79.52 SENIOR CARE (CURRENT) USE OF SYSTEMIC STER 04/15/2018 CINTHIA MCCLURE Ot Z98.890 OTHER SPECIFIED POSTPROCEDURAL STATES 05/21/2018 BUBBA ROBERTS [facility] CCDS Ot 786.50 CHEST PAIN NOS 05/21/2018 CHELY PETERS APRN Ot J42 UNSPECIFIED CHRONIC BRONCHITIS 05/21/2018 CHELY PETERS CONDENSER TUBE TENDER Ot J45.909 UNSPECIFIED ASTHMA, UNCOMPLICATED 05/21/2018 CHELY PETERS CONDENSER TUBE TENDER Ot J45.909 UNSPECIFIED ASTHMA, UNCOMPLICATED 05/21/2018 CHELSY MORALES ANIMAL CRUELTY INVESTIGATION SUPERVISOR Ot E03.9 HYPOTHYROIDISM, UNSPECIFIED 05/21/2018 CHELSY MORALES ANIMAL CRUELTY INVESTIGATION SUPERVISOR Ot J30.89 OTHER ALLERGIC RHINITIS 05/21/2018 CHELSY MORALES ANIMAL CRUELTY INVESTIGATION SUPERVISOR Ot J45.50 SEVERE PERSISTENT ASTHMA, UNCOMPLICATED 07/06/2018 BUBBA ROBERTS [facility] CCDS Ot 786.50 CHEST PAIN NOS 07/06/2018 CHELY PETERS CONDENSER TUBE TENDER Ot J42 UNSPECIFIED CHRONIC BRONCHITIS 07/06/2018 CHELY PETERS APRN Ot J45.909 UNSPECIFIED ASTHMA, UNCOMPLICATED 07/06/2018 CHELY PETERS CONDENSER TUBE TENDER Ot J45.909 UNSPECIFIED ASTHMA, UNCOMPLICATED 07/06/2018 CHELSY MORALES ANIMAL CRUELTY INVESTIGATION SUPERVISOR Ot E03.9 HYPOTHYROIDISM, UNSPECIFIED 07/06/2018 CHELSY MORALES ANIMAL CRUELTY INVESTIGATION SUPERVISOR Ot J30.89 OTHER ALLERGIC RHINITIS 07/06/2018 CHELSY MORALES ANIMAL CRUELTY INVESTIGATION SUPERVISOR Ot J45.50 SEVERE PERSISTENT ASTHMA, UNCOMPLICATED Procedures Code Description [place] [address] ROUTINE VENIPUNCTURE 05/13/2012 05170 THERAPUTIC INJ SQ/IM 05/13/2012 J1040 DEPO MEDROL 80 MG INJ 05/13/2012 43878 TSH 05/14/2012 52966 XRAY CHEST 2 VIEW 06/13/2012 LIZETT KIDD 06/13/2012 16294 ROUTINE VENIPUNCTURE 08/07/2012 58102 XRAY CHEST 2 VIEW 08/07/2012 20877 CMP 08/07/2012 80062 LIPID PANEL 08/07/2012 91279 BNP 08/07/2012 67597 TSH 08/07/2012 37462 CBC 08/07/2012 02983 CRP HS (CARDIO) 08/07/2012 58253 EKG, TRACING (IN-HOUSE) 08/07/2012 27612 PULMONARY FUNCTION TEST (IN- HOUSE) 08/07/2012 SARAHI CORONA 08/07/2012 73478 ECHO 2D 10/23/2012 73906 ROUTINE VENIPUNCTURE 11/15/2012 28050 TSH 11/15/2012 43063 OXIMETRY 11/15/2012 81544 OXIMETRY 11/22/2012 PULMONARY NUDUKWU, STACY 11/22/2012 17231 OXIMETRY 12/13/2012 14064 OXIMETRY 12/17/2012 43391 ROUTINE VENIPUNCTURE 06/06/2013 53095 INFLUENZA A & B (IN-HOUSE) 06/06/2013 07305 UA W/ CULTURE IF INDICATED 06/06/2013 15529 CBC 06/06/2013 84408 CMP 06/06/2013 7159690 GFR CALC (RESULT ONLY) 06/06/2013 97778 LIPASE 06/06/2013 72952 BNP 06/06/2013 28839 OXIMETRY 07/17/2013 Cardiolog Emily Leach 07/17/2013 66540 EKG, TRACING (IN-HOUSE) 09/24/2013 10665 ECHO 2D 10/08/2013 95139 XRAY CHEST 2 VIEW 10/22/2013 96787 OXIMETRY 01/19/2014 80312 ROUTINE VENIPUNCTURE 02/27/2014 56609 TSH 02/27/2014 Results Test Result Range CBC with Auto Diff - 07/03/16 23:10 Baso% 0.70 % 0.00-2.50 Eos 0.7 K/uL 0.0-0.7 Eos% 12.7 % 0.0-7.0 Hct 43.0 % 42.0-52.0 Hgb 14.6 g/dL 14.0-17.0 Lym 0.81 K/uL 0.60-3.40 Lym% 14.3 % 10.0-50.0 MCH 29.9 pg 27.0-31.2 MCHC 34.0 g/dL 32.0-36.0 MCV 87.9 fL 80.0-97.0 Smith% 7.2 % 0.0-12.0 MPV 10.1 fL 7.4-10.0 Miguel% 65.1 % 37.0-80.0 Plt 227 K/uL 150-400 RBC 4.89 M/uL 4.20-5.40 RDW 12.0 % 11.6-14.8 WBC 5.68 K/uL 5.00-10.00 Miguel 3.70 K/uL 2.00-6.90 Smith 0.4 K/uL 0.0-0.9 Baso 0.0 K/uL 0.0-0.2 [...] 5-8.5 Urine-Protein 1+ Negative Urine-RBC Negative Urine-Specific [place] >=1.030 1.000-1.030 Urine-WBC 2-5/HPF Urobilinogen 1.0 E.U./dL [...] NRG Blood erythrocyte morphology finding identification [facility] Comprehensive metabolic panel - 05/11/17 10:51 Serum [...] RAST [place] GENERAL PROFILE - 05/31/17 10:09 [id number] SEE FOOTNOTE NRG Serum Alternaria alternata IgE [...] class [presence] in serum CLASS 0 NRG [place] house dust mite IgE ab RAST class [...] plasma albumin measurement (mass/volume) 4.8 g/dL 3.2-4.5 LIPASE - 05/03/18 12:09 LIPASE 36 U/L 7-60 Encounters ACCT No. Visit Date/Time Discharge Status Pt. Type Provider Facility Loc./Unit Complaint [id number] 07/13/2014 15:58:00 07/13/2014 23:59:59 CLS Outpatient KIANNA MENESES MD [id number] 02/27/2014 10:40:00 02/27/2014 23:59:59 CLS Outpatient KIANNA MENESES MD [id number] 01/19/2014 13:44:00 01/19/2014 23:59:59 CLS Outpatient KIANNA MENESES MD [id number] 12/16/2013 14:02:00 12/16/2013 23:59:59 CLS Outpatient KIANNA MENESES MD [id number] 12/09/2013 10:27:00 12/09/2013 23:59:59 CLS Outpatient KIANNA MENESES MD [id number] 10/22/2013 08:50:00 10/22/2013 23:59:59 CLS Outpatient BOBBI TELLO APRN [id number] 07/10/2013 10:08:00 07/10/2013 23:59:59 CLS Outpatient BOBBI TELLO APRN [id number] 06/06/2013 14:14:00 06/06/2013 23:59:59 CLS Outpatient BOBBI TELLO APRN [id number] 03/24/2013 09:45:00 03/24/2013 23:59:59 CLS Outpatient JESSE MICHELLE EASTMAN [id number] 08/07/2012 09:32:00 08/07/2012 23:59:59 CLS Outpatient BELKYS PENA DO [id number] 06/13/2012 08:35:00 06/13/2012 23:59:59 [place] [id number] 05/13/2012 10:13:00 05/13/2012 23:59:59 CLS Outpatient BELKYS PENA DO [id number] 12/13/2012 13:15:00 Document Registration [id number] 11/22/2012 11:11:00 Document Registration [id number] 11/15/2012 10:57:00 Document Registration [id number] 10/16/2012 11:41:00 Document Registration [id number] 04/11/2018 21:27:00 04/11/2018 22:29:00 DIS Emergency CINTHIA MCCLURE [facility] ER FINGER LAC [id number] 04/02/2018 20:25:00 04/02/2018 23:21:00 DIS Outpatient KEIRA PENA APRN [facility] ER COPD BOTHERING HIM, R SHOULDER PAIN [id number] 11/17/2017 16:10:00 11/17/2017 17:53:00 DIS Emergency KEIRA PENA APRN [facility] ER COPD,"NEEDS BREATHING TREATMENT" [id number] 07/27/2017 13:26:00 07/27/2017 15:27:00 DIS Emergency KEIRA PENA APRN [facility] ER ASTHMA/SOB/COUGH/N/V/ FEVER [id number] 07/02/2017 09:04:00 07/02/2017 23:59:59 CLS Outpatient CHELY PETERS APRN [facility] RT ASTHMA [id number] 06/19/2017 14:01:00 06/19/2017 23:59:59 CLS Preadmit CHELY PETERS APRN [facility] SLEEP G47.9 SLEEP DISORDER [id number] 06/10/2017 13:00:00 06/10/2017 13:39:00 DIS Outpatient CHELY PETERS APRN [facility] SLEEP G47.10 [id number] 06/03/2017 21:34:00 06/03/2017 23:21:00 DIS Emergency EARNESTINE LEIVA MD [facility] ER WEAK RECTAL BLEED [id number] 05/31/2017 09:41:00 05/31/2017 23:59:59 CLS Outpatient ANDREW CHELSY José ANIMAL CRUELTY INVESTIGATION SUPERVISOR [facility] LAB E03.9 J45.50J30.89 [id number] 05/31/2017 09:37:00 05/31/2017 23:59:59 CLS Outpatient CHELY PETERS APRN [facility] RAD J45.909 R06.00 [id number] 05/11/2017 10:14:00 05/11/2017 12:12:00 DIS Emergency EDWIN PETER MD [facility] ER BREATHING ISSUES, ASTHMA-- [id number] 05/10/2017 17:52:00 05/10/2017 18:30:00 DIS Emergency EDWIN PETER MD [facility] ER TROUBLE BREATHING; WANTS CHECKED FOR MENINGITIS [id number] 10/08/2013 09:47:00 10/08/2013 23:59:59 CLS Outpatient BUBBA ROBERTS FACC, ALI OBEDP CCDS [facility] CARD CHEST PAIN [id number] 11/12/2012 10:01:00 11/12/2012 18:08:00 DIS Outpatient BUBBA ROBERTS FACC, ALI FACP CCDS [facility] CATH CP,HTN [id number] 10/28/2012 09:39:00 10/28/2012 23:59:59 CLS Outpatient SARAHI SAMUEL MD [facility] CARD CP [id number] 07/06/2018 01:08:00 ACT Emergency EDWIN PETER MD [facility] ER COPD,VOMITING,COUGHING,SOB [id number] 06/18/2012 21:53:00 Document Registration [id number] 05/30/2012 15:52:00 Document Registration [id number] 03/12/2012 10:40:00 Document Registration [id number] 02/27/2012 00:00:00 Document Registration [id number] 02/20/2012 19:38:00 Document Registration [id number] 01/27/2012 23:40:00 Document Registration [id number] 01/19/2012 18:00:00 Document Registration [id number] 01/14/2012 18:51:00 Document Registration [id number] 01/08/2012 19:51:00 Document Registration [id number] 12/23/2011 15:40:00 Document Registration [id number] 12/07/2011 12:34:00 Document Registration [id number] 12/07/2011 12:33:00 Document Registration [id number] 08/23/2016 08:35:00 Document Registration [id number] 04/08/2018 13:12:00 04/08/2018 14:24:[address] [facility] ER [id number] 02/19/2018 16:36:00 02/19/2018 17:46:[address] [facility] ER [id number] 01/20/2018 13:59:00 01/20/2018 16:00:00 DIS Outpatient [facility] ER [id number] 10/09/2016 21:45:00 10/09/2016 23:45:00 DIS Outpatient [facility] ER [id number] 07/03/2016 22:54:00 07/04/2016 00:25:00 DIS Outpatient [facility] [place] [id number] 07/03/2016 23:07:35 Document Registration [id number] 06/21/2018 14:40:00 06/21/2018 23:59:59 [facility] [id number] 05/03/2018 11:20:00 Document Registration [id number] 03/18/2018 09:20:00 Document Registration [id number] 07/03/2016 22:54:00 Document Registration
[2018-07-06] MEDS ORDERED: NS IV 1000 ML 1,000 ML IV STA (01:24)
[2018-07-06] MEDS ORDERED: methylPREDNISolone 125 MG (Solu-MEDROL) VIAL IV STA (01:24)
[2018-07-06] MEDS ORDERED: RT-ALBUTEROL SULF 2.5 MG/3 ML PRE-MIX VIAL INH STA ×2 (01:24→01:58)
[2018-07-06] MEDS ORDERED: ONDANSETRON 4 MG/2 ML (SDV) Z0FRAN IVP ONE (01:30)
[2018-07-06] MEDS ORDERED: RT-ALBUTEROL/IPRATROPIUM 3 ML (DUONEB) VIAL INH ONE (01:30)
--- NOTE | 2018-07-06 01:32 | ED Respiratory ---
General Stated Complaint: COPD,VOMITING,COUGHING,SOB Source: patient Exam Limitations: no limitations History of Present Illness Date Seen by Provider: Jul 06, 2018 Time Seen by Provider: 01:14 Initial Comments Here with report of nausea and vomiting as well as shortness of breath. This is been going on intermittently for the at least the last 4 weeks. Worse tonight. It had one episode of vomiting and reports shortness of breath. He has been having to go home and use his breathing machine to help. That does help some but does not last. He was seen by his provider at the clinic on 13 June who told him he had a virus and sent him on his way per the patient. No prescriptions at that time. Does have history of COPD and follows with Dr. Damian. Timing/Duration: getting worse, changing over time, other (one month) Severity: moderate Prior Episodes/Possible Cause: occasional episodes Modifying Factors: Worse With Activity; Improves With Albuterol Nebulizer Associated Symptoms: cough, nasal congestion, shortness of breath, wheezing Allergies and Home Medications Allergies Coded Allergies: No Known Drug Allergies (Unverified , 05/04/11) Home Medications Albuterol Sulfate 2.5 Mg/3 Ml Vial.neb, 2.5 MG IH Q4H PRN for WHEEZING Prescribed by: KEIRA PENA on 07/27/17 144 Azithromycin 250 Mg Tablet, 250 MG PO UD TAKE 2 TABLETS TODAY, THEN TAKE 1 TABLET DAILY FOR 4 MORE DAYS Prescribed by: KEIRA PENA on 04/02/182240 Levothyroxine Sodium 50 Mcg Tablet, 50 MCG PO DAILY, (Reported) Pramoxine HCl 15 Gm Foam, 1 APPLIC TP QID Prescribed by: EARNESTINE WILKERSON on 06/03/17 2315 Prednisone 20 Mg Tab, 40 MG PO DAILY Prescribed by: KEIRA PENA on 07/27/17 1448 Prednisone 5 Mg Tablet, 5 MG PO UD 40 mg daily for 4 days. Prescribed by: KEIRA PENA on 04/02/182240 Patient Home Medication List Home Medication List Reviewed: Yes Review of Systems Review of Systems Constitutional: see HPI, chills; No fever EENTM: nose congestion Respiratory: cough, short of breath, wheezing Cardiovascular: no symptoms reported Gastrointestinal: No abdominal pain, No diarrhea; nausea, vomiting Genitourinary: no symptoms reported Musculoskeletal: no symptoms reported Skin: no symptoms reported Psychiatric/Neurological: No Symptoms Reported Past Evocmtg-Xcznii-Fsiowf Hx Past Med/Social Hx: Reviewed Nursing Past Med/Soc Hx Patient Social History Alcohol Use: Occasionally Uses Recreational Drug Use: No Smoking Status: Never a Smoker 2nd Hand Smoke Exposure: No Recent Foreign Travel: No Contact w/Someone Who Travel: No Recent Hopitalizations: Yes Immunizations Up To Date Tetanus Booster (TDap): Less than 5yrs PED Vaccines UTD: Yes Past Medical History Surgeries: Yes (HEART CATH 2011) Respiratory: Yes (has rescue inhaler is not aware of having asthma) Cardiac: No Neurological: No Reproductive Disorders: No Genitourinary: No Gastrointestinal: No Musculoskeletal: No Endocrine: Yes Hypothyroidsim HEENT: No Cancer: No Psychosocial: No Anxiety Integumentary: No Blood Disorders: No Family Medical History Reviewed Nursing Family Hx No Pertinent Family Hx Physical Exam Vital Signs - First Documented Capillary Refill : Height: 5'9.00" Weight: 210lbs. 0oz. [id number]; BMI Method:Stated General Appearance: WD/WN, no apparent distress HEENT: PERRL/EOMI, pharyngeal erythema; No tonsillar exudate Neck: full range of motion, normal inspection Respiratory: decreased breath sounds, wheezing Cardiovascular: regular rate, rhythm, no murmur Gastrointestinal: non tender, soft Extremities: non-tender, normal inspection Neurologic/Psychiatric: alert, oriented x 3 Skin: normal color, warm/dry Progress/Results/Core Measures Suspected Sepsis SIRS Temperature: Pulse: Respiratory Rate: Laboratory Tests 07/06/18 01:20: White Blood Count 8.6 Blood Pressure / Mean: Laboratory Tests 07/06/18 01:20: Creatinine 1.14, Platelet Count 295, Total Bilirubin 0.4 Results/Orders Lab Results Laboratory Tests Test 07/06/18 01:20 Range/Units White Blood Count 8.6 4.3-11.0 10^3/uL Red Blood Count 4.69 4.35-5.85 10^6/uL Hemoglobin 14.0 13.3-17.7 G/DL Hematocrit 42 40-54 % Mean Corpuscular Volume 90 80-99 FL Mean Corpuscular Hemoglobin 30 25-34 PG Mean Corpuscular Hemoglobin Concent 33 32-36 G/DL Red Cell Distribution Width 12.0 10.0-14.5 % Platelet Count 295 130-400 10^3/uL Mean Platelet Volume 9.9 7.4-10.4 FL Neutrophils (%) (Auto) 59 42-75 % Lymphocytes (%) (Auto) 25 12-44 % Monocytes (%) (Auto) 8 0-12 % Eosinophils (%) (Auto) 8 0-10 % Basophils (%) (Auto) 1 0-10 % Neutrophils # (Auto) 5.1 1.8-7.8 X 10^3 Lymphocytes # (Auto) 2.1 1.0-4.0 X 10^3 Monocytes # (Auto) 0.7 0.0-1.0 X 10^3 Eosinophils # (Auto) 0.7 H 0.0-0.3 10^3/uL Basophils # (Auto) 0.0 0.0-0.1 10^3/uL Sodium Level 138 135-145 MMOL/L Potassium Level 4.0 3.6-5.0 MMOL/L Chloride Level 104 98-107 MMOL/L Carbon Dioxide Level 24 21-32 MMOL/L Anion Gap 10 5-14 MMOL/L Blood Urea Nitrogen 15 7-18 MG/DL Creatinine 1.14 0.60-1.30 MG/DL Estimat Glomerular Filtration Rate > 60 BUN/Creatinine Ratio 13 Glucose Level 100 70-105 MG/DL Calcium Level 9.7 8.5-10.1 MG/DL Corrected Calcium 9.5 8.5-10.1 MG/DL Total Bilirubin 0.4 0.1-1.0 MG/DL Aspartate Amino Transf (AST/SGOT) 16 5-34 U/L Alanine Aminotransferase (ALT/SGPT) 15 0-55 U/L Alkaline Phosphatase 105 40-136 U/L C-Reactive Protein High Sensitivity 2.40 H 0.00-0.50 MG/DL Total Protein 7.5 6.4-8.2 GM/DL Albumin 4.2 3.2-4.5 GM/DL Micro Results Microbiology 07/06/18 Influenza Types A,B Antigen (MANJIT) - Final, Complete My Orders Orders - EDWIN PETER MD Albuterol Pre-Mix Nebs (Rt) (Proventil (07/06/18 01:24) Albuterol/Ipra Inhalation Soln (Duoneb I (07/06/18 01:30) Cbc With Automated Diff (07/06/18 01:24) Comprehensive Metabolic Panel (07/06/18 01:24) Hs C Reactive Protein (07/06/18 01:24) Ondansetron Injection (Zofran Injectio (07/06/18 01:30) Ns Iv 1000 Ml (Sodium Chloride 0.9%) (07/06/18 01:24) Saline Lock/Iv-Start (07/06/18 01:24) Svn Small Volume Nebulizer (07/06/18 01:24) Svn Small Volume Nebulizer (07/06/18 01:24) Methylprednisolone Sod Succ (Solu-Medrol (07/06/18 01:24) Influenza A And B Antigens (07/06/18 01:36) Albuterol Pre-Mix Nebs (Rt) (Proventil (07/06/18 01:58) Svn Small Volume Nebulizer (07/06/18 01:58) Medications Given in ED Current Medications Medications Dose Ordered Sig/Anatoly Route Start Time Stop Time Status Last Admin Dose Admin Albuterol/ Ipratropium 3 ml ONCE ONCE INH 07/06/18 01:30 07/06/18 01:31 DC 07/06/18 01:37 3 ML Ondansetron HCl 4 mg ONCE ONCE IVP 07/06/18 01:30 07/06/18 01:31 DC 07/06/18 01:31 4 MG Vital Signs/I&O 07/06/18 07/06/18 07/06/18 07/06/18 01:11 01:11 01:37 02:00 Temp 96.8 Pulse 95 Resp 20 B/P (MAP) 140/79 (99) Pulse Ox 97 96 100 O2 Delivery Room Air Room Air Room Air Room Air Capillary Refill : Progress Note : Progress Note Seen and evaluated. IV, labs, normal saline 1 L bolus, Solu-Medrol 125 mg IV, DuoNeb and albuterol neb ordered. Monitor patient. 0220: Overall improved. Patient did receive 2 more albuterol nebs. He is influenza B positive but is outside the window for treatment as this illness has been going on for several days. Patient was informed of the flu positive status. Patient is not currently nore has been hypoxic throughout the stay. Discharged home with return precautions. Patient verbalize understanding instructions and agreement with plan. Departure Impression Primary Impression: Influenza Additional Impression: COPD exacerbation Disposition: HOME, SELF-CARE Condition: Improved Departure-Patient Inst. Decision time for Depature: 02:23 Referrals: [facility] (PCP/Family) Primary Care Physician Patient Instructions: Exacerbation of COPD (DC), Flu, Adult (DC) Add. Discharge Instructions: Take medications as directed. You may use Tylenol 1000 mg every 8 hours as needed for fever or pain. You may use ibuprofen 800 mg every 8 hours as needed for fever or pain. Drink plenty of fluids. Use your nebulizer treatments as needed. Follow-up with your Dr. in a few days for recheck. Return for worse pain, fever, vomiting, weakness, breathing problems or other concerns as needed. Scripts Prednisone (Prednisone) 20 Mg Tab 40 MG PO DAILY, #10 TAB 0 Refills Prov: EDWIN PETER MD 07/06/18 EDWIN PETER MD Jul 06, 2018 01:32
[2018-07-06 01:35] LABS: BASOPHILS % (AUTO) 1 % (0-10); EOSINOPHILS # (AUTO) 0.7 10^3/uL (0.0-0.3); EOSINOPHILS % (AUTO) 8 % (0-10); HEMATOCRIT 42 % (40-54); LYMPHOCYTES # (AUTO) 2.1 X 10^3 (1.0-4.0); LYMPHOCYTES % (AUTO) 25 % (12-44); MEAN CORPUSCULAR HEMOGLOBIN 30 PG (25-34); MEAN CORPUSCULAR HGB CONC 33 G/DL (32-36); MEAN CORPUSCULAR VOLUME 90 FL (80-99); MEAN PLATELET VOLUME 9.9 FL (7.4-10.4); MONOCYTES # (AUTO) 0.7 X 10^3 (0.0-1.0); MONOCYTES % (AUTO) 8 % (0-12); NEUTROPHILS # (AUTO) 5.1 X 10^3 (1.8-7.8); NEUTROPHILS % (AUTO) 59 % (42-75); PLATELET COUNT 295 10^3/uL (130-400); WHITE BLOOD COUNT 8.6 10^3/uL (4.3-11.0)
[2018-07-06 01:53] LABS: ALANINE AMINOTRANSFERASE 15 U/L (0-55); ALBUMIN 4.2 GM/DL (3.2-4.5); ALKALINE PHOSPHATASE 105 U/L (40-136); BILIRUBIN,TOTAL 0.4 MG/DL (0.1-1.0); BUN/CREATININE RATIO 13; CALCIUM 9.7 MG/DL (8.5-10.1); CARBON DIOXIDE 24 MMOL/L (21-32); CHLORIDE 104 MMOL/L (98-107); CREATININE SERUM 1.14 MG/DL (0.60-1.30); GFR ESTIMATED > 60; GLUCOSE 100 MG/DL (70-105); SODIUM 138 MMOL/L (135-145); TOTAL PROTEIN 7.5 GM/DL (6.4-8.2)
[2018-07-06] MEDS ORDERED: PRD20T PO (02:25)
[2018-07-06 02:38] VITALS: BP 135/76
== END 2018-07-06 02:38 | disposition home or self-care (01) ==
LOC: EDUNIT# 01:03 → ER 01:08
DX: J11.1 Influenza due to unidentified influenza virus with other respiratory manifestations (principal); J44.1 Chronic obstructive pulmonary disease with (acute) exacerbation; E03.9 Hypothyroidism, unspecified; F41.9 Anxiety disorder, unspecified; Z95.9 Presence of cardiac and vascular implant and graft, unspecified; Z79.51 Long term (current) use of inhaled steroids; Z79.52 Long term (current) use of systemic steroids
CPT/HCPCS: 36415; 80053; 85025; 86141; 87804; 94640; 96361; 96374; 96375

== ENCOUNTER 2018-08-16 12:14 | Emergency (ER) | payer OTHER ==
[~2018-08-16] VITALS: Ht 175.3 cm; Wt 95.3 kg
--- OUTSIDE RECORDS SUMMARY | 2018-08-16 12:25 | XMS REPORT | Continuity of Care Document ---
Author Author Formerly [facility] Address Unknown Phone Unavailable Allergies Active Description Code Type Severity Reaction Onset Reported/Identified Relationship to Patient Clinical Status Yes NO KNOWN DRUG ALLERGIES NO KNOWN DRUG ALLERG UNKNOWN Yes NO KNOWN DRUG ALLERGIES UNKNOWN NO KNOWN DRUG ALLERG Yes No Known Drug Allergies [id number] Drug Allergy Unknown N/A 05/04/2011 Medications Medication [...] EASTMAN BOBBI R 799.22 Irritability 10/05/2011 OMER ESATMAN BOBBI R V58.69 LONG-TERM (CURRENT) USE OF OTHER MEDICATIONS 10/05/2011 JUNAID TELLO APRNINA R 578.1 Blood In Stool 10/05/2011 OMER DIE LAY OUT WORKER, BOBBI R 599.70 Hematuria Unspecified 10/05/2011 OMER DIE LAY OUT WORKER, BOBBI R 780.4 Dizziness And Giddiness 10/05/2011 OMER DIE LAY OUT WORKER, BOBBI R 784.0 Headache 10/05/2011 OMER DIE LAY OUT WORKER, BOBBI R 790.4 Abnormal Lft (elevated) 10/05/2011 OMER DIE LAY OUT WORKER, BOBBI R 799.22 Irritability 10/05/2011 OMER DIE LAY OUT WORKER, BOBBI R V58.69 LONG-TERM (CURRENT) USE OF OTHER MEDICATIONS 10/05/2011 OMER DIE LAY OUT WORKER BOBBI R 578.1 Blood In Stool 10/05/2011 OMER DIE LAY OUT WORKER, BOBBI R 599.70 Hematuria Unspecified 10/05/2011 OMER DIE LAY OUT WORKER, BOBBI R 780.4 Dizziness And Giddiness 10/05/2011 OMER DIE LAY OUT WORKER, BOBBI R 784.0 Headache 10/05/2011 OMER BOYERN, [...] KIANNA MENESES MD 784.0 Headache 10/05/2011 KIANNA MENESSE MD 790.4 Abnormal Lft (elevated) 10/05/2011 KIANNA [...] 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 THYROTOXIC CRISIS OR STORM 10/24/2011 OEMR EASTMAN BOBBI R 311 DEPRESSIVE DISORDER NOT [...] WITHOUT THYROTOXIC CRISIS OR STORM 10/24/2011 BECKY PANCAHL BELKYS K 311 DEPRESSIVE DISORDER NOT ELSEWHERE [...] MOLINA APRN 466.0 Bronchitis, Acute 03/15/2012 OMER DIE LAY OUT WORKER, BOBBI R 461.9 SINUSITIS ACUTE 03/15/2012 OMER DIE LAY OUT WORKER, BOBBI R 466.0 Bronchitis, Acute 03/15/2012 OMER DIE LAY OUT WORKER, BOBBI R 461.9 SINUSITIS ACUTE 03/15/2012 OMER DIE LAY OUT WORKER, BOBBI R 466.0 Bronchitis, Acute 03/15/2012 OMER DIE LAY OUT WORKER, BOBBI R 461.9 SINUSITIS ACUTE 03/15/2012 OMER DIE LAY OUT WORKER, BOBBI R 466.0 Bronchitis, Acute 03/15/2012 ZAIRA [...] KIANNA MENESES MD 461.9 SINUSITIS ACUTE 03/15/2012 KAINNA MENESES MD 466.0 Bronchitis, Acute 03/15/2012 BECKY [...] MOLINA APRN M 786.2 COUGH 06/13/2012 OMER DIE LAY OUT WORKER, BOBBI R 466.0 BRONCHITIS, ACUTE 06/13/2012 OMER DIE LAY OUT WORKER, BOBBI R 569.3 RECTAL BLEEDING 06/13/2012 OMER DIE LAY OUT WORKER, BOBBI R 786.07 WHEEZING 06/13/2012 OMER DIE LAY OUT WORKER, BOBBI R 786.09 DYSPNEA 06/13/2012 OMER DIE LAY OUT WORKER, BOBBI R 786.2 COUGH 06/13/2012 OMER DIE LAY OUT WORKER, BOBBI R 466.0 BRONCHITIS, ACUTE 06/13/2012 OMER DIE LAY OUT WORKER, BOBBI R 569.3 RECTAL BLEEDING 06/13/2012 OMER DIE LAY OUT WORKER, BOBBI R 786.07 WHEEZING 06/13/2012 OMER DIE LAY OUT WORKER, BOBBI R 786.09 DYSPNEA 06/13/2012 OMER DIE LAY OUT WORKER, BOBBI R 786.2 COUGH 06/13/2012 OMER DIE LAY OUT WORKER, BOBBI R 466.0 BRONCHITIS, ACUTE 06/13/2012 OMER DIE LAY OUT WORKER, BOBBI R 569.3 RECTAL BLEEDING 06/13/2012 OMER DIE LAY OUT WORKER, BOBBI R 786.07 WHEEZING 06/13/2012 OMER DIE LAY OUT WORKER, BOBBI R 786.09 DYSPNEA 06/13/2012 OMER DIE LAY OUT WORKER, BOBBI R 786.2 COUGH 06/13/2012 ZAIRA ROBERTS, [...] Ot V58.69 OTH MED,LT,CURRENT USE 06/06/2013 OMER DIE LAY OUT WORKER, BOBBI R 787.01 NAUSEA WITH VOMITING 06/06/2013 OMER DIE LAY OUT WORKER, BOBBI R 787.60 FULL INCONTINENCE OF FECES [...] SEVERE PERSISTENT ASTHMA, UNCOMPLICATED 07/03/2017 CHELY PETERS DIE LAY OUT WORKER Ot J42 UNSPECIFIED CHRONIC BRONCHITIS 07/03/2017 CHELY PETERS DIE LAY OUT WORKER Ot J45.909 UNSPECIFIED ASTHMA, UNCOMPLICATED 07/08/2017 CHELY PETERS DIE LAY OUT WORKER Ot J42 UNSPECIFIED CHRONIC BRONCHITIS 07/08/2017 CHELY PETERS DIE LAY OUT WORKER Ot J45.909 UNSPECIFIED ASTHMA, UNCOMPLICATED 07/19/2017 FRANCHELY MARSH DIE LAY OUT WORKER Ot J42 UNSPECIFIED CHRONIC BRONCHITIS 07/19/2017 CHELY PETERS DIE LAY OUT WORKER Ot J45.909 UNSPECIFIED ASTHMA, UNCOMPLICATED 07/27/2017 KEIRA PENA APRN Ot E05.90 THYROTOXICOSIS, UNSP WITHOUT THYROTOXIC 07/27/2017 KEIRA PENA APRN Ot F41.9 ANXIETY DISORDER, UNSPECIFIED 07/27/2017 KEIRA PENA APRN Ot J45.901 UNSPECIFIED ASTHMA WITH (ACUTE) EXACERBA 07/27/2017 KEIRA PENA APRN Ot R05 COUGH 07/27/2017 KEIRA PENA APRN Ot Z79.52 PULP MIXER (CURRENT) USE OF SYSTEMIC STER 07/27/2017 Ot [...] J42 UNSPECIFIED CHRONIC BRONCHITIS 07/27/2017 CHELY PETERS DIE LAY OUT WORKER Ot J45.909 UNSPECIFIED ASTHMA, UNCOMPLICATED 07/27/2017 CHELY PETERS DIE LAY OUT WORKER Ot J45.909 UNSPECIFIED ASTHMA, UNCOMPLICATED 07/27/2017 CHELSY MORALES APRON WORKER Ot E03.9 HYPOTHYROIDISM, UNSPECIFIED 07/27/2017 CHELSY MORALES APRON WORKER Ot J30.89 OTHER ALLERGIC RHINITIS 07/27/2017 CHELSY MORALES APRON WORKER Ot J45.50 SEVERE PERSISTENT ASTHMA, UNCOMPLICATED 07/30/2017 KEIRA PENA APRN Ot E05.90 THYROTOXICOSIS, UNSP WITHOUT THYROTOXIC 07/30/2017 KEIRA PENA APRN Ot F41.9 ANXIETY DISORDER, UNSPECIFIED 07/30/2017 KEIRA PENA APRN Ot J45.901 UNSPECIFIED ASTHMA WITH (ACUTE) EXACERBA 07/30/2017 KEIRA PENA APRN Ot R05 COUGH 07/30/2017 KEIRA PENA APRN Ot Z79.52 SKILLED NURSING (CURRENT) USE OF SYSTEMIC STER 11/17/2017 KEIRA PENA APRN Ot E03.9 HYPOTHYROIDISM, UNSPECIFIED 11/17/2017 KEIRA PENA APRN Ot F41.9 ANXIETY DISORDER, UNSPECIFIED 11/17/2017 KEIRA PENA APRN Ot J45.901 UNSPECIFIED ASTHMA WITH (ACUTE) EXACERBA 11/17/2017 KEIRA PENA APRN Ot R06.02 SHORTNESS OF BREATH 11/17/2017 KEIRA PENA APRN Ot Z79.52 PULP MIXER (CURRENT) USE OF SYSTEMIC STER 11/17/2017 KEIRA [...] OBSTRUCTIVE PULMONARY DISEASE, UNSPECIFIED 04/03/2018 CHELY PETERS DIE LAY OUT WORKER Ot J42 UNSPECIFIED CHRONIC BRONCHITIS 04/03/2018 CHELY PETERS APRN Ot J45.909 UNSPECIFIED ASTHMA, UNCOMPLICATED 04/04/2018 KEIRA PENA APRN Ot E03.9 HYPOTHYROIDISM, UNSPECIFIED 04/04/2018 KEIRA PENA APRN Ot F41.9 ANXIETY DISORDER, UNSPECIFIED 04/04/2018 KEIRA PENA DIE LAY OUT WORKER Ot J45.901 UNSPECIFIED ASTHMA WITH (ACUTE) EXACERBA 04/04/2018 KEIRA PENA DIE LAY OUT WORKER Ot R06.02 SHORTNESS OF BREATH 04/08/2018 [place] [...] FACTORS, SUB 04/11/2018 CINTHIA MCCLURE Ot Z79.51 PULP MIXER (CURRENT) USE OF INHALED STERO 04/11/2018 CINTHIA MCCLURE Ot Z79.52 PULP MIXER (CURRENT) USE OF SYSTEMIC STER 04/11/2018 CINTHIA [...] FACTORS, SUB 04/15/2018 CINTHIA MCCLURE Ot Z79.51 PULP MIXER (CURRENT) USE OF INHALED STERO 04/15/2018 CINTHIA MCCLURE Ot Z79.52 SKILLED NURSING (CURRENT) USE OF SYSTEMIC STER 04/15/2018 CINTHIA MCCLURE Ot Z98.890 OTHER SPECIFIED POSTPROCEDURAL STATES 05/21/2018 BUBBA ROBERTS [facility], [facility] CCDS Ot 786.50 CHEST PAIN NOS 05/21/2018 CHELY PETERS DIE LAY OUT WORKER Ot J42 UNSPECIFIED CHRONIC BRONCHITIS 05/21/2018 CHELY PETERS DIE LAY OUT WORKER Ot J45.909 UNSPECIFIED ASTHMA, UNCOMPLICATED 05/21/2018 FRANCHELY MARSH DIE LAY OUT WORKER Ot J45.909 UNSPECIFIED ASTHMA, UNCOMPLICATED 05/21/2018 CHELSY MORALES APRON WORKER Ot E03.9 HYPOTHYROIDISM, UNSPECIFIED 05/21/2018 CHELSY MORALES APRON WORKER Ot J30.89 OTHER ALLERGIC RHINITIS 05/21/2018 CHELSY MORALES APRON WORKER Ot J45.50 SEVERE PERSISTENT ASTHMA, UNCOMPLICATED 07/06/2018 BUBBA ROBERTS [facility], AL[facility] CCDS Ot 786.50 CHEST PAIN NOS 07/06/2018 CHELY PETERS DIE LAY OUT WORKER Ot J42 UNSPECIFIED CHRONIC BRONCHITIS 07/06/2018 CHELY PETERS DIE LAY OUT WORKER Ot J45.909 UNSPECIFIED ASTHMA, UNCOMPLICATED 07/06/2018 CHELY PETERS DIE LAY OUT WORKER Ot J45.909 UNSPECIFIED ASTHMA, UNCOMPLICATED 07/06/2018 CHELSY MORALES APRON WORKER Ot E03.9 HYPOTHYROIDISM, UNSPECIFIED 07/06/2018 CHELSY MORALES APRON WORKER Ot J30.89 OTHER ALLERGIC RHINITIS 07/06/2018 CHELSY MORALES APRON WORKER Ot J45.50 SEVERE PERSISTENT ASTHMA, UNCOMPLICATED 07/06/2018 BUBBA ROBERTS [facility], [facility] CCDS Ot 786.50 CHEST PAIN NOS 07/06/2018 CHELY PETERS DIE LAY OUT WORKER Ot J42 UNSPECIFIED CHRONIC BRONCHITIS 07/06/2018 CHELY PETERS DIE LAY OUT WORKER Ot J45.909 UNSPECIFIED ASTHMA, UNCOMPLICATED 07/06/2018 CHELY PETERS DIE LAY OUT WORKER Ot J45.909 UNSPECIFIED ASTHMA, UNCOMPLICATED 07/06/2018 CHELSY MORALES APRON WORKER Ot E03.9 HYPOTHYROIDISM, UNSPECIFIED 07/06/2018 CHELSY MORALES APRON WORKER Ot J30.89 OTHER ALLERGIC RHINITIS 07/06/2018 CEHLSY MORALES APRON WORKER Ot J45.50 SEVERE PERSISTENT ASTHMA, UNCOMPLICATED 07/09/2018 EDWIN PETER MD Ot E03.9 HYPOTHYROIDISM, UNSPECIFIED 07/09/2018 EDWIN PETER MD Ot F41.9 ANXIETY DISORDER, UNSPECIFIED 07/09/2018 EDWIN PETER MD Ot J11.1 FLU DUE TO UNIDENTIFIED INFLUENZA VIRUS 07/09/2018 EDWIN PETER MD Ot J44.1 CHRONIC OBSTRUCTIVE PULMONARY DISEASE W 07/09/2018 EDWIN PETER MD, Ot R11.2 NAUSEA WITH VOMITING, UNSPECIFIED 07/09/2018 EDWIN PETER MD Ot Z79.51 SKILLED NURSING (CURRENT) USE OF INHALED STERO 07/09/2018 EDWIN PETER MD Ot Z79.52 SKILLED NURSING (CURRENT) USE OF SYSTEMIC STER 07/09/2018 EDWIN PETER MD Ot 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 Procedures Code Description [place] [address] ROUTINE VENIPUNCTURE 05/13/2012 77930 THERAPUTIC INJ SQ/IM 05/13/2012 J1040 DEPO MEDROL 80 MG INJ 05/13/2012 74845 TSH 05/14/2012 25253 XRAY CHEST 2 VIEW 06/13/2012 LIZETT KIDD 06/13/2012 45050 ROUTINE VENIPUNCTURE 08/07/2012 97159 XRAY CHEST 2 VIEW 08/07/2012 32418 CMP 08/07/2012 83179 LIPID PANEL 08/07/2012 56466 BNP 08/07/2012 12747 TSH 08/07/2012 89550 CBC 08/07/2012 59875 CRP HS (CARDIO) 08/07/2012 19639 EKG, TRACING (IN-HOUSE) 08/07/2012 38745 PULMONARY FUNCTION TEST (IN- HOUSE) 08/07/2012 SARAHI CORONA 08/07/2012 66776 ECHO 2D 10/23/2012 68624 ROUTINE VENIPUNCTURE 11/15/2012 02877 TSH 11/15/2012 00750 OXIMETRY 11/15/2012 67410 OXIMETRY 11/22/2012 PULMONARY STACY SHUKLA 11/22/2012 41258 OXIMETRY 12/13/2012 09367 OXIMETRY 12/17/2012 25877 ROUTINE VENIPUNCTURE 06/06/2013 81947 INFLUENZA A & B (IN-HOUSE) 06/06/2013 63186 UA W/ CULTURE IF INDICATED 06/06/2013 23912 CBC 06/06/2013 14731 CMP 06/06/2013 7397158 GFR CALC (RESULT ONLY) 06/06/2013 88562 LIPASE 06/06/2013 59307 BNP 06/06/2013 83125 OXIMETRY 07/17/2013 Cardiolog Emily Leach 07/17/2013 38027 EKG, TRACING (IN-HOUSE) 09/24/2013 28342 ECHO 2D 10/08/2013 72460 XRAY CHEST 2 VIEW 10/22/2013 78144 OXIMETRY 01/19/2014 99502 ROUTINE VENIPUNCTURE 02/27/2014 71639 TSH 02/27/2014 Results Test Result Range CBC with Auto Diff - 07/03/16 23:10 Baso% 0.70 % 0.00-2.50 Eos 0.7 K/uL 0.0-0.7 Eos% 12.7 % 0.0-7.0 Hct 43.0 % 42.0-52.0 Hgb 14.6 g/dL 14.0-17.0 Lym 0.81 K/uL 0.60-3.40 Lym% 14.3 % 10.0-50.0 MCH 29.9 pg 27.0-31.2 MCHC 34.0 g/dL 32.0-36.0 MCV 87.9 fL 80.0-97.0 Cocke% 7.2 % 0.0-12.0 MPV 10.1 fL 7.4-10.0 Miguel% 65.1 % 37.0-80.0 Plt 227 K/uL 150-400 RBC 4.89 M/uL 4.20-5.40 RDW 12.0 % 11.6-14.8 WBC 5.68 K/uL 5.00-10.00 Miguel 3.70 K/uL 2.00-6.90 Cocke 0.4 K/uL 0.0-0.9 Baso 0.0 K/uL 0.0-0.2 [...] 5-8.5 Urine-Protein 1+ Negative Urine-RBC Negative Urine-Specific [place] >=1.030 1.000-1.030 Urine-WBC 2-5/HPF Urobilinogen 1.0 E.U./dL [...] NRG Blood erythrocyte morphology finding identification NORMAL [facility] Comprehensive metabolic panel - 05/11/17 [...] THYROID STIMULATING HORMONE 3.54 u[iU]/mL 0.35-4.94 [facility] [place] GENERAL PROFILE - 05/31/17 10:09 [id number] SEE FOOTNOTE NRG Serum Alternaria alternata IgE [...] class [presence] in serum CLASS 0 NRG [place]ian house dust mite IgE ab RAST class [...] - 05/03/18 12:09 LIPASE 36 U/L 7-60 Influenza virus A and B antigen detection - 07/06/18 01:15 CALL POSITIVES (F1 HELP) CALLED TO [facility] AT [address] [facility] FLU RESULT POSITIVE FOR INFLUENZA B ANTIGEN, NEG FOR A ANTIGEN, BY [facility] Complete blood count (CBC) with automated white blood cell (WBC) differential - 07/06/18 01:20 Blood leukocytes automated count (number/volume) 8.6 10*3/uL 4.3-11.0 Blood erythrocytes automated count (number/volume) 4.69 10*6/uL 4.35-5.85 Venous blood hemoglobin measurement (mass/volume) 14.0 g/dL 13.3-17.7 Blood hematocrit (volume fraction) 42 % 40-54 Automated erythrocyte mean corpuscular volume 90 [foz_us] 80-99 Automated erythrocyte mean corpuscular hemoglobin (mass per erythrocyte) 30 pg 25-34 Automated erythrocyte mean corpuscular hemoglobin concentration measurement ( mass/volume) 33 g/dL 32-36 Automated erythrocyte distribution width ratio 12.0 % 10.0-14.5 Automated blood platelet count (count/volume) 295 10*3/uL 130-400 Automated blood platelet mean volume measurement 9.9 [foz_us] 7.4-10.4 Automated blood neutrophils/100 leukocytes 59 % 42-75 Automated blood lymphocytes/100 leukocytes 25 % 12-44 Blood monocytes/100 leukocytes 8 % 0-12 Automated blood eosinophils/100 leukocytes 8 % 0-10 Automated blood basophils/100 leukocytes 1 % 0-10 Blood neutrophils automated count (number/volume) 5.1 10*3 1.8-7.8 Blood lymphocytes automated count (number/volume) 2.1 10*3 1.0-4.0 Blood monocytes automated count (number/volume) 0.7 10*3 0.0-1.0 Automated eosinophil count 0.7 10*3/uL 0.0-0.3 Automated blood basophil count (count/volume) 0.0 10*3/uL 0.0-0.1 Comprehensive metabolic panel - 07/06/18 01:20 Serum or plasma sodium measurement (moles/volume) 138 mmol/L 135-145 Serum or plasma potassium measurement (moles/volume) 4.0 mmol/L 3.6-5.0 Serum or plasma chloride measurement (moles/volume) 104 mmol/L 98-107 Carbon dioxide 24 mmol/L 21-32 Serum or plasma anion gap determination (moles/volume) 10 mmol/L 5-14 Serum or plasma urea nitrogen measurement (mass/volume) 15 mg/dL 7-18 Serum or plasma creatinine measurement (mass/volume) 1.14 mg/dL 0.60-1.30 Serum or plasma urea nitrogen/creatinine mass ratio 13 NRG Serum or plasma creatinine measurement with calculation of estimated glomerular filtration rate > NRG Serum or plasma glucose measurement (mass/volume) 100 mg/dL 70-105 Serum or plasma calcium measurement (mass/volume) 9.7 mg/dL 8.5-10.1 Serum or plasma total bilirubin measurement (mass/volume) 0.4 mg/dL 0.1-1.0 Serum or plasma alkaline phosphatase measurement (enzymatic activity/volume) 105 U/L 40-136 Serum or plasma aspartate aminotransferase measurement (enzymatic activity/ volume) 16 U/L 5-34 Serum or plasma alanine aminotransferase measurement (enzymatic activity/volume ) 15 U/L 0-55 Serum or plasma protein measurement (mass/volume) 7.5 g/dL 6.4-8.2 Serum or plasma albumin measurement (mass/volume) 4.2 g/dL 3.2-4.5 CALCIUM CORRECTED 9.5 mg/dL 8.5-10.1 Serum or plasma C reactive protein measurement (mass/volume) - 07/06/18 01:20 Serum or plasma C reactive protein measurement (mass/volume) 2.40 mg /dL 0.00-0.50 Encounters ACCT No. Visit Date/Time Discharge Status Pt. Type Provider Facility Loc./Unit Complaint [id number] 07/13/2014 15:58:00 07/13/2014 23:59:59 CLS Outpatient KIANNA MENESES MD [id number] 02/27/2014 10:40:00 02/27/2014 23:59:59 CLS Outpatient KIANNA MENESES MD [id number] 01/19/2014 13:44:00 01/19/2014 23:59:59 CLS Outpatient KIANNA MENESES MD [id number] 12/16/2013 14:02:00 12/16/2013 23:59:59 CLS Outpatient KIANNA MENESES MD [id number] 12/09/2013 10:27:00 12/09/2013 23:59:59 CLS Outpatient KIANNA MENESES MD [id number] 10/22/2013 08:50:00 10/22/2013 23:59:59 CLS Outpatient BOBBI TELLO APRN [id number] 07/10/2013 10:08:00 07/10/2013 23:59:59 CLS Outpatient BOBBI TELLO APRN [id number] 06/06/2013 14:14:00 06/06/2013 23:59:59 CLS Outpatient BOBBI TELLO APRN [id number] 03/24/2013 09:45:00 03/24/2013 23:59:59 CLS Outpatient MICHELLE MOLINA APRN [id number] 08/07/2012 09:32:00 08/07/2012 23:59:59 CLS Outpatient BELKYS PENA DO [id number] 06/13/2012 08:35:00 06/13/2012 23:59:59 [place] [id number] 05/13/2012 10:13:00 05/13/2012 23:59:59 CLS Outpatient BELKYS PENA DO [id number] 12/13/2012 13:15:00 Document Registration [id number] 11/22/2012 11:11:00 Document Registration [id number] 11/15/2012 10:57:00 Document Registration [id number] 10/16/2012 11:41:00 Document Registration [id number] 07/06/2018 01:08:00 07/06/2018 02:38:00 DIS Outpatient EDWIN PETER MD [facility] ER COPD,VOMITING,COUGHING ,SOB [id number] 04/11/2018 21:27:00 04/11/2018 22:29:00 DIS Emergency CINTHIA MCCLURE [facility] ER FINGER LAC [id number] 04/02/2018 20:25:00 04/02/2018 23:21:00 DIS Outpatient KEIRA PENA APRN [facility] ER COPD BOTHERING HIM, R SHOULDER PAIN [id number] 11/17/2017 16:10:00 11/17/2017 17:53:00 DIS Emergency KEIRA PENA DIE LAY OUT WORKER [facility] ER COPD,"NEEDS BREATHING TREATMENT" [id number] 07/27/2017 13:26:00 07/27/2017 15:27:00 DIS Emergency KEIRA PENA DIE LAY OUT WORKER [facility] ER ASTHMA/SOB/COUGH/N/V/ FEVER [id number] 07/02/2017 09:04:00 07/02/2017 23:59:59 CLS Outpatient CHELY PETERS APRN [facility] RT ASTHMA [id number] 06/19/2017 14:01:00 06/19/2017 23:59:59 CLS Preadmit CHELY PETERS APRN [facility] SLEEP G47.9 SLEEP DISORDER [id number] 06/10/2017 13:00:00 06/10/2017 13:39:00 DIS Outpatient CHELY PETERS APRN [facility] SLEEP G47.10 [id number] 06/03/2017 21:34:00 06/03/2017 23:21:00 DIS Emergency CALI ROBERTS, EARNESTINE José [facility] ER WEAK RECTAL BLEED [id number] 05/31/2017 09:41:00 05/31/2017 23:59:59 CLS Outpatient CHELSY MORALES [facility] LAB E03.9 J45.50J30.89 [id number] 05/31/2017 09:37:00 05/31/2017 23:59:59 CLS Outpatient CHELY PETERS APRN [facility] RAD J45.909 R06.00 [id number] 05/11/2017 10:14:00 05/11/2017 12:12:00 DIS Emergency EDWIN PETER MD [facility] ER BREATHING ISSUES, ASTHMA-- [id number] 05/10/2017 17:52:00 05/10/2017 18:30:00 DIS Emergency EDWIN PETER MD [facility] ER TROUBLE BREATHING; WANTS CHECKED FOR MENINGITIS [id number] 10/08/2013 09:47:00 10/08/2013 23:59:59 CLS Outpatient EMILY LEACH MD, FACC, FACP CCDS [facility] CARD CHEST PAIN [id number] 11/12/2012 10:01:00 11/12/2012 18:08:00 DIS Outpatient EMILY LEACH MD, FACCP CCDS [facility] CATH CP,HTN [id number] 10/28/2012 09:39:00 10/28/2012 23:59:59 CLS Outpatient SARAHI SAMUEL MD [facility] CARD CP [id number] 08/16/2018 12:17:00 ACT Emergency GRACIELA ELAM MD [facility] ER COPD PAIN WITH URINATION STUFFY NOSE [id number] 06/18/2012 21:53:00 Document Registration [id number] 05/30/2012 15:52:00 Document Registration [id number] 03/12/2012 10:40:00 Document Registration [id number] 02/27/2012 00:00:00 Document Registration [id number] 02/20/2012 19:38:00 Document Registration [id number] 01/27/2012 23:40:00 Document Registration [id number] 01/19/2012 18:00:00 Document Registration [id number] 01/14/2012 18:51:00 Document Registration [id number] 01/08/2012 19:51:00 Document Registration [id number] 12/23/2011 15:40:00 Document Registration [id number] 12/07/2011 12:34:00 Document Registration [id number] 12/07/2011 12:33:00 Document Registration [id number] 08/23/2016 08:35:00 Document Registration [id number] 04/08/2018 13:12:00 04/08/2018 14:24:00 DIS Outpatient [facility] ER [id number] 02/19/2018 16:36:00 02/19/2018 17:46:00 [id number] 01/20/2018 13:59:00 01/20/2018 16:00:00 DIS Outpatient [facility] ER [id number] 10/09/2016 21:45:00 10/09/2016 23:45:00 DIS Outpatient [facility] ER [id number] 07/03/2016 22:54:00 07/04/2016 00:25:00 [place] [facility] [place] [id number] 07/03/2016 23:07:35 Document Registration [id number] 06/21/2018 14:40:00 06/21/2018 23:59:59 [facility] Outpatient ALEA COOK [facility] [id number] 05/03/2018 11:20:00 Document Registration [id number] 03/18/2018 09:20:00 Document Registration [id number] 07/03/2016 22:54:00 Document Registration
[2018-08-16 13:21] LABS: BILIRUBIN,URINE NEGATIVE (NEGATIVE); CLARITY,URINE CLEAR; COLOR,URINE YELLOW; GLUCOSE, URINE (UA) NEGATIVE (NEGATIVE); KETONES,URINE 2+ (NEGATIVE); LEUKOCYTE ESTERASE ,URINE NEGATIVE (NEGATIVE); NITRITE,URINE NEGATIVE (NEGATIVE); PH,URINE 6 (5-9); PROTEIN,URINE 1+ (NEGATIVE); UROBILINOGEN,URINE NORMAL (NORMAL)
[2018-08-16 13:29] LABS: BACTERIA,URINE NEGATIVE /HPF
[2018-08-16] MEDS ORDERED: RT-ALBUTEROL/IPRATROPIUM 3 ML (DUONEB) VIAL INH ONE (13:30)
--- NOTE | 2018-08-16 13:59 | ED General ---
General Chief Complaint: Respiratory Problems Stated Complaint: COPD PAIN WITH URINATION STUFFY NOSE Nursing Triage Note: INCREASED SOA OVER THE LAST WEEK ET THINKS IT IS RELATED TO HIS COPD. ALSO STATES FOR A COUPLE OF DAYS HE HAS BEEN HAVING PAINFUL URINATION. Nursing Sepsis Screen: No Definite Risk Source of Information: Patient Exam Limitations: No Limitations History of Present Illness Date Seen by Provider: Aug 16, 2018 Time Seen by Provider: 13:16 Initial Comments Here with 2-3 days of upper respiratory congestion, cough and also noted painful urination. Does have history of COPD. His posterior work today and his boss wanted him to get evaluated. Patient had influenza a month or so ago and states it feels like he has it again. Timing/Duration: 2-3 Days Severity: Moderate Associated Systoms: Cough, Fever/Chills, Nausea/Vomiting; No Shortness of Air, No Weakness Allergies and Home Medications Allergies Coded Allergies: No Known Drug Allergies (Unverified , 05/04/11) Home Medications Albuterol Sulfate 2.5 Mg/3 Ml Vial.neb, 2.5 MG IH Q4H PRN for WHEEZING Prescribed by: KEIRA PENA on 07/27/17 144 Azithromycin 250 Mg Tablet, 250 MG PO UD TAKE 2 TABLETS TODAY, THEN TAKE 1 TABLET DAILY FOR 4 MORE DAYS Prescribed by: KEIRA PENA on 04/02/182240 Levothyroxine Sodium 50 Mcg Tablet, 50 MCG PO DAILY, (Reported) Pramoxine HCl 15 Gm Foam, 1 APPLIC TP QID Prescribed by: EARNESTINE WILKERSON on 06/03/17 2315 Prednisone 20 Mg Tab, 40 MG PO DAILY Prescribed by: KEIRA PENA on 07/27/17 144 Prednisone 5 Mg Tablet, 5 MG PO UD 40 mg daily for 4 days. Prescribed by: KEIRA PENA on 04/02/182240 Prednisone 20 Mg Tab, 40 MG PO DAILY Prescribed by: EDWIN PETER on 07/06/18 0225 Patient Home Medication List Home Medication List Reviewed: Yes Review of Systems Review of Systems Constitutional: see HPI, chills; No weakness EENTM: nose congestion; No throat pain ( I doubt right leg just ran out) Respiratory: cough, wheezing Cardiovascular: no symptoms reported Gastrointestinal: nausea, vomiting Genitourinary: No discharge; pain Musculoskeletal: joint pain, muscle pain Skin: no symptoms reported Past Jvvibgh-Sdqpyu-Zqgqxs Hx Past Med/Social Hx: Reviewed Nursing Past Med/Soc Hx Patient Social History Alcohol Use: Denies Use Recreational Drug Use: No Smoking Status: Never a Smoker 2nd Hand Smoke Exposure: No Recent Foreign Travel: No Contact w/Someone Who Travel: No Recent Infectious Disease Expo: No Recent Hopitalizations: Yes Immunizations Up To Date Tetanus Booster (TDap): Less than 5yrs PED Vaccines UTD: Yes Seasonal Allergies Seasonal Allergies: No Past Medical History Surgeries: Yes (HEART CATH 2011) Respiratory: Yes (has rescue inhaler is not aware of having asthma) Sleep Apnea, COPD Currently Using CPAP: Yes Currently Using BIPAP: No Cardiac: Yes Hypertension Neurological: No Reproductive Disorders: No Genitourinary: No Gastrointestinal: No Musculoskeletal: No Endocrine: Yes Hypothyroidsim HEENT: No Cancer: No Psychosocial: No Anxiety Integumentary: No Blood Disorders: No Family Medical History Reviewed Nursing Family Hx No Pertinent Family Hx Physical Exam Vital Signs Vital Signs - First Documented 08/16/18 12:22 Temp 98.9 Pulse 65 Resp 16 B/P (MAP) 128/88 (101) Pulse Ox 96 O2 Delivery Room Air Capillary Refill : Less Than 3 Seconds Height, Weight, BMI Height: 5'9.00" Weight: 210lbs. 0oz. 95.682262ep; BMI Method:Stated General Appearance: No Apparent Distress, WD/WN HEENT: PERRL/EOMI, TMs Normal, Pharynx Normal, Pharyngeal Erythema, Other ( moderate bilateral nasal congestion with clear rhinorrhea) Neck: Non Tender, Supple Respiratory: Lungs Clear, Normal Breath Sounds Cardiovascular: Regular Rate, Rhythm, No Murmur Gastrointestinal: Non Tender, Soft Extremity: Normal Range of Motion, Non Tender Neurologic/Psychiatric: Alert, Oriented x3 Skin: Normal Color, Warm/Dry Progress/Results/Core Measures Suspected Sepsis Recent Fever Within 48 Hours: No Infection Criteria Present: Suspected New Infection New/Unexplained Altered Menta: No Sepsis Screen: No Definite Risk SIRS Temperature:98.9 Pulse: 65 Respiratory Rate: 16 Blood Pressure 128 /88 Mean: 101 Results/Orders Lab Results Laboratory Tests Test 08/16/18 13:01 Range/Units Urine Color YELLOW Urine Clarity CLEAR Urine pH 6 5-9 Urine Specific [place] 1.020 1.016-1.022 Urine Protein 1+ H NEGATIVE Urine Glucose (UA) NEGATIVE NEGATIVE Urine Ketones 2+ H NEGATIVE Urine Nitrite NEGATIVE NEGATIVE Urine Bilirubin NEGATIVE NEGATIVE Urine Urobilinogen NORMAL NORMAL MG/DL Urine Leukocyte Esterase NEGATIVE NEGATIVE Urine RBC (Auto) NEGATIVE NEGATIVE Urine RBC NONE /HPF Urine WBC NONE /HPF Urine Crystals NONE /LPF Urine Bacteria NEGATIVE /HPF Urine Casts NONE /LPF Urine Mucus MODERATE H /LPF Urine Culture Indicated NO Micro Results Microbiology 08/16/18 Influenza Types A,B Antigen (MANJIT) - Final, Complete My Orders Orders - EDWIN PETER MD Ua Culture If Indicated (08/16/18 13:16) Influenza A And B Antigens (08/16/18 13:21) Albuterol/Ipra Inhalation Soln (Duoneb I (08/16/18 13:30) Svn Small Volume Nebulizer (08/16/18 13:21) Medications Given in ED Current Medications Medications Dose Ordered Sig/Anatoly Route Start Time Stop Time Status Last Admin Dose Admin Albuterol/ Ipratropium 3 ml ONCE ONCE INH 08/16/18 13:30 08/16/18 13:31 DC 08/16/18 13:42 3 ML Vital Signs/I&O 08/16/18 08/16/18 12:22 13:44 Temp 98.9 Pulse 65 Resp 16 B/P (MAP) 128/88 (101) Pulse Ox 96 96 O2 Delivery Room Air Room Air Capillary Refill : Less Than 3 Seconds Blood Pressure Mean: 101 Progress Note : Progress Note Seen and evaluated. UA, do not have an influenza screen ordered. 1431: Influenza positive. Patient feels a little better after breathing treatment. We will write work note to get him out of work tonight and did discuss supportive therapy. Patient is outside a window for Tamiflu. Given his COPD history, we will go ahead and initiate steroids. Discharged home with return precautions. Patient verbalize understanding instructions and agreement with plan. Departure Impression Primary Impression: Influenza B Disposition: 01 HOME, SELF-CARE Condition: Stable Departure-Patient Inst. Decision time for Depature: 14:32 Referrals: [facility] (PCP/Family) Primary Care Physician Patient Instructions: Flu, Adult (DC) Add. Discharge Instructions: All discharge instructions reviewed with patient and/or family. Voiced understanding. You may take Tylenol/acetaminophen 1000 mg every 8 hours as needed for fever or pain. You may take ibuprofen 800 mg every 8 hours as needed for fever or pain. You may use your albuterol nebulizer treatments as previously prescribed. Drink plenty of fluids. Get some rest. Follow-up with your Dr. in a few days for recheck. Return for worsening, fever, vomiting, weakness, breathing problems or other concerns as needed. Scripts Prednisone (Prednisone) 20 Mg Tab 40 MG PO DAILY, #10 TAB 0 Refills Prov: EDWIN PETER MD 08/16/18 Ondansetron (Ondansetron Odt) 4 Mg Tab.rapdis 4 MG PO Q6H PRN for NAUSEA/VOMITING, #8 TAB 0 Refills Prov: EDWIN PETER MD 08/16/18 Work/School Note: Work Release Form Date Seen in the Emergency Department: Aug 16, 2018 Return to Work: Aug 19, 2018 Restrictions: No Restrictions EDWIN PETER MD Aug 16, 2018 13:59
[2018-08-16] MEDS ORDERED: PRD20T PO (14:35)
[2018-08-16] MEDS ORDERED: ONDA4TAB11 PO (14:35)
[2018-08-16 14:45] VITALS: BP 132/86
== END 2018-08-16 14:44 | disposition home or self-care (01) ==
LOC: EDUNIT# 12:14 → ER 12:17
DX: J10.1 Influenza due to other identified influenza virus with other respiratory manifestations (principal); G47.30 Sleep apnea, unspecified; J44.9 Chronic obstructive pulmonary disease, unspecified; I10 Essential (primary) hypertension; F41.9 Anxiety disorder, unspecified; E03.9 Hypothyroidism, unspecified; Z79.51 Long term (current) use of inhaled steroids; Z79.52 Long term (current) use of systemic steroids; Z95.9 Presence of cardiac and vascular implant and graft, unspecified
CPT/HCPCS: 81000; 87804; 94640

== ENCOUNTER 2018-12-27 16:22 | Emergency (ER) | payer SELFPAY ==
[~2018-12-27] VITALS: Ht 175.3 cm; Wt 95.3 kg
[~2018-12-27 16:22] MED LIST changes: +ONDA4TAB11 PO
[2018-12-27] MEDS ORDERED: LACTATED RINGERS 1,000 ML IV SCH (16:30)
[2018-12-27] MEDS ORDERED: RT-ALBUTEROL/IPRATROPIUM 3 ML (DUONEB) VIAL INH ONE (16:30)
[2018-12-27] MEDS ORDERED: ONDANSETRON 4 MG/2 ML (SDV) Z0FRAN IVP ONE (16:30)
[2018-12-27] MEDS ORDERED: predniSONE 20 MG TAB PO ONE (16:30)
--- NOTE | 2018-12-27 16:33 | ED Dyspnea ---
General Stated Complaint: SOB Source of Information: Patient, EMS Exam Limitations: No Limitations History of Present Illness Date Seen by Provider: Dec 27, 2018 Time Seen by Provider: 16:31 Initial Comments To ER per EMS from [facility] with reports of shortness of breath. He first noticed shortness of breath upon awakening this morning, states that he's been sneezing a lot, no productive cough. States that he has a history of COPD. Typically he takes Advair disks and uses his father's nebulizer states that his father's nebulizer quit working last night. He denies fevers or chills. He quit taking his Advair disks several months ago because he began to feel better. He does not smoke. Upon EMS arrival he was noted to have some wheezing, DuoNeb was started. Timing/Duration: Increasing Severity: Moderate Associated Symptoms: Wheezing Allergies and Home Medications Allergies Coded Allergies: No Known Drug Allergies (Unverified , 05/04/11) Home Medications Albuterol Sulfate 2.5 Mg/3 Ml Vial.neb, 2.5 MG IH Q4H PRN for WHEEZING Prescribed by: KEIRA PENA on 07/27/17 1448 Azithromycin 250 Mg Tablet, 250 MG PO UD TAKE 2 TABLETS TODAY, THEN TAKE 1 TABLET DAILY FOR 4 MORE DAYS Prescribed by: KEIRA PENA on 04/02/182240 Levothyroxine Sodium 50 Mcg Tablet, 50 MCG PO DAILY, (Reported) Ondansetron 4 Mg Tab.rapdis, 4 MG PO Q6H PRN for NAUSEA/VOMITING Prescribed by: EDWIN PETER on 08/16/18 1435 Pramoxine HCl 15 Gm Foam, 1 APPLIC TP QID Prescribed by: EARNESTINE WILKERSON on 06/03/17 2315 Prednisone 20 Mg Tab, 40 MG PO DAILY Prescribed by: KEIRA PENA on 07/27/17 1448 Prednisone 5 Mg Tablet, 5 MG PO UD 40 mg daily for 4 days. Prescribed by: KEIRA PENA on 04/02/18 224 Prednisone 20 Mg Tab, 40 MG PO DAILY Prescribed by: EDWIN PETER on 07/06/18 0225 Prednisone 20 Mg Tab, 40 MG PO DAILY Prescribed by: EDWIN PETER on 08/16/18 1435 Patient Home Medication List Home Medication List Reviewed: Yes Review of Systems Review of Systems Constitutional: see HPI; No chills, No fever EENTM: see HPI Respiratory: see HPI; No cough; dyspnea on exertion, short of breath, wheezing Genitourinary: no symptoms reported Musculoskeletal: no symptoms reported Skin: no symptoms reported Psychiatric/Neurological: No Symptoms Reported Endocrine: No Symptoms Reported Past Wvwntjh-Gsiqzw-Ptndsj Hx Patient Social History 2nd Hand Smoke Exposure: No Recent Hopitalizations: Yes Immunizations Up To Date Tetanus Booster (TDap): Less than 5yrs PED Vaccines UTD: Yes Seasonal Allergies Seasonal Allergies: No Past Medical History Surgeries: Yes (HEART CATH 2011) Respiratory: Yes (has rescue inhaler is not aware of having asthma) Sleep Apnea, COPD Currently Using CPAP: Yes Currently Using BIPAP: No Cardiac: Yes Hypertension Neurological: No Reproductive Disorders: No Genitourinary: No Gastrointestinal: No Musculoskeletal: No Endocrine: Yes Hypothyroidsim HEENT: No Cancer: No Psychosocial: No Anxiety Integumentary: No Blood Disorders: No Family Medical History No Pertinent Family Hx Physical Exam Vital Signs Vital Signs - First Documented 12/27/18 16:23 Temp 98.9 Pulse 87 Resp 16 B/P (MAP) 154/107 (123) Pulse Ox 95 O2 Delivery Room Air Capillary Refill : Height, Weight, BMI Height: 5'9.00" Weight: 210lbs. 0oz. 95.191544ll; BMI Method:Stated General Appearance: No Apparent Distress, WD/WN Respiratory: No Accessory Muscle Use, No Respiratory Distress, Decreased Breath Sounds; No Respiratory Distress; Wheezing Cardiovascular: Regular Rate, Rhythm, Normal Peripheral Pulses Gastrointestinal: Non Tender, Soft Neurologic/Psychiatric: Alert, Oriented x3 Skin: Normal Color, Warm/Dry Progress/Results/Core Measures Results/Orders Lab Results Laboratory Tests Test 12/27/18 16:30 Range/Units White Blood Count 7.4 4.3-11.0 10^3/uL Red Blood Count 4.90 4.35-5.85 10^6/uL Hemoglobin 14.6 13.3-17.7 G/DL Hematocrit 44 40-54 % Mean Corpuscular Volume 90 80-99 FL Mean Corpuscular Hemoglobin 30 25-34 PG Mean Corpuscular Hemoglobin Concent 33 32-36 G/DL Red Cell Distribution Width 13.0 10.0-14.5 % Platelet Count 240 130-400 10^3/uL Mean Platelet Volume 10.3 7.4-10.4 FL Neutrophils (%) (Auto) 49 42-75 % Lymphocytes (%) (Auto) 32 12-44 % Monocytes (%) (Auto) 6 0-12 % Eosinophils (%) (Auto) 12 H 0-10 % Basophils (%) (Auto) 1 0-10 % Neutrophils # (Auto) 3.6 1.8-7.8 X 10^3 Lymphocytes # (Auto) 2.3 1.0-4.0 X 10^3 Monocytes # (Auto) 0.5 0.0-1.0 X 10^3 Eosinophils # (Auto) 0.9 H 0.0-0.3 10^3/uL Basophils # (Auto) 0.1 0.0-0.1 10^3/uL Neutrophils % (Manual) 51 % Lymphocytes % (Manual) 26 % Monocytes % (Manual) 4 % Eosinophils % (Manual) 14 % Basophils % (Manual) 0 % Reactive Lymphocytes 5 % Blood Morphology Comment NORMAL Sodium Level 140 135-145 MMOL/L Potassium Level 3.9 3.6-5.0 MMOL/L Chloride Level 108 H 98-107 MMOL/L Carbon Dioxide Level 24 21-32 MMOL/L Anion Gap 8 5-14 MMOL/L Blood Urea Nitrogen 14 7-18 MG/DL Creatinine 0.92 0.60-1.30 MG/DL Estimat Glomerular Filtration Rate > 60 BUN/Creatinine Ratio 15 Glucose Level 125 H 70-105 MG/DL Calcium Level 9.5 8.5-10.1 MG/DL Corrected Calcium 9.4 8.5-10.1 MG/DL Total Bilirubin 0.3 0.1-1.0 MG/DL Aspartate Amino Transf (AST/SGOT) 17 5-34 U/L Alanine Aminotransferase (ALT/SGPT) 20 0-55 U/L Alkaline Phosphatase 103 40-136 U/L C-Reactive Protein High Sensitivity 0.22 0.00-0.50 MG/DL Total Protein 7.5 6.4-8.2 GM/DL Albumin 4.1 3.2-4.5 GM/DL My Orders Orders - KEIRA PENA APRN Hs C Reactive Protein (12/27/18 16:27) Cbc With Automated Diff (12/27/18 16:27) Comprehensive Metabolic Panel (12/27/18 16:27) Ed Iv/Invasive Line Start (12/27/18 16:27) Chest 1 View, Ap/Pa Only (12/27/18 16:27) Albuterol/Ipra Inhalation Soln (Duoneb I (12/27/18 16:30) Svn Small Volume Nebulizer (12/27/18 16:27) Ondansetron Injection (Zofran Injectio (12/27/18 16:30) Prednisone Tablet (Deltasone Tablet) (12/27/18 16:30) Lactated Ringers (Lr 1000 Ml Iv Solution (12/27/18 16:30) Manual Differential (12/27/18 16:30) Medications Given in ED Current Medications Medications Dose Ordered Sig/Anatoly Route Start Time Stop Time Status Last Admin Dose Admin Albuterol/ Ipratropium 3 ml ONCE ONCE INH 12/27/18 16:30 12/27/18 16:31 DC 12/27/18 16:51 3 ML Ondansetron HCl 8 mg ONCE ONCE IVP 12/27/18 16:30 12/27/18 16:31 DC 12/27/18 16:38 8 MG Prednisone 60 mg ONCE ONCE PO 12/27/18 16:30 12/27/18 16:31 DC 12/27/18 16:38 60 MG Vital Signs/I&O 12/27/18 12/27/18 16:23 16:51 Temp 98.9 Pulse 87 Resp 16 B/P (MAP) 154/107 (123) Pulse Ox 95 99 O2 Delivery Room Air Room Air Departure Impression Primary Impression: Reactive airway disease Disposition: HOME, SELF-CARE Condition: Stable Departure-Patient Inst. Decision time for Depature: 17:35 Referrals: [facility]) Primary Care Physician Patient Instructions: Wheezing Add. Discharge Instructions: 1. Steroids as directed in addition to the nebulizer. Scripts Albuterol Sulfate (Albuterol Sulfate) 2.5 Mg/3 Ml Vial.neb 2.5 MG INH Q4H PRN for WHEEZING, #50 EA 1 Refill Prov: KEIRA PENA APRN 12/27/18 Prednisone (Prednisone) 20 Mg Tab 40 MG PO DAILY, #8 TAB 0 Refills Prov: KEIRA PENA APRN 12/27/18 Work/School Note: Work Release Form Date Seen in the Emergency Department: Dec 27, 2018 Return to Work: Dec 30, 2018 KEIRA PENA APRN Dec 27, 2018 16:33
[2018-12-27 16:37] LABS: BASOPHILS # (AUTO) 0.1 10^3/uL (0.0-0.1); BASOPHILS % (AUTO) 1 % (0-10); EOSINOPHILS # (AUTO) 0.9 10^3/uL (0.0-0.3); EOSINOPHILS % (AUTO) 12 % (0-10); HEMATOCRIT 44 % (40-54); HEMOGLOBIN 14.6 G/DL (13.3-17.7); LYMPHOCYTES # (AUTO) 2.3 X 10^3 (1.0-4.0); LYMPHOCYTES % (AUTO) 32 % (12-44); MEAN CORPUSCULAR HEMOGLOBIN 30 PG (25-34); MEAN CORPUSCULAR HGB CONC 33 G/DL (32-36); MEAN CORPUSCULAR VOLUME 90 FL (80-99); MEAN PLATELET VOLUME 10.3 FL (7.4-10.4); MONOCYTES # (AUTO) 0.5 X 10^3 (0.0-1.0); MONOCYTES % (AUTO) 6 % (0-12); NEUTROPHILS # (AUTO) 3.6 X 10^3 (1.8-7.8); NEUTROPHILS % (AUTO) 49 % (42-75); PLATELET COUNT 240 10^3/uL (130-400); WHITE BLOOD COUNT 7.4 10^3/uL (4.3-11.0)
--- NOTE | 2018-12-27 16:59 | Diagnostic Imaging Report ---
INDICATION: COPD. COMPARISON: 04/02/2018. FINDINGS: The lungs are clear. Heart and vessels are normal. There is no effusion or pneumothorax. IMPRESSION: No acute appearing abnormality. Dictated by: Dictated on workstation # [id number]
[2018-12-27 17:04] LABS: ALANINE AMINOTRANSFERASE 20 U/L (0-55); ALBUMIN 4.1 GM/DL (3.2-4.5); ALKALINE PHOSPHATASE 103 U/L (40-136); BILIRUBIN,TOTAL 0.3 MG/DL (0.1-1.0); BUN/CREATININE RATIO 15; CALCIUM 9.5 MG/DL (8.5-10.1); CARBON DIOXIDE 24 MMOL/L (21-32); CHLORIDE 108 MMOL/L (98-107); CREATININE SERUM 0.92 MG/DL (0.60-1.30); GFR ESTIMATED > 60; GLUCOSE 125 MG/DL (70-105); POTASSIUM 3.9 MMOL/L (3.6-5.0); SODIUM 140 MMOL/L (135-145); TOTAL PROTEIN 7.5 GM/DL (6.4-8.2)
--- NOTE | 2018-12-27 17:09 | NUR ---
PT RESTING QUIETLY IN BED WITH NO S/S OF DISTRESS, PT SYMPTOMS HAVE IMPROVED, PT DENIES ANY NEEDS OR C/O, PT SHOWS NO S/S OF DISTRESS
[2018-12-27 17:13] LABS: BASOPHILS % (MANUAL) 0 %; EOSINOPHILS % (MANUAL) 14 %; LYMPHOCYTES % (MANUAL) 26 %; MONOCYTES % (MANUAL) 4 %; NEUTROPHILS % (MANUAL) 51 %
[2018-12-27 17:14] LABS: RBC MORPH NORMAL; REACTIVE LYMPHOCYTES 5 %
[2018-12-27] MEDS ORDERED: PRD20T PO (17:36)
[2018-12-27] MEDS ORDERED: ALBU2.5V4 INH (17:36)
[2018-12-27 18:17] VITALS: BP 120/97
--- OUTSIDE RECORDS SUMMARY | 2018-12-27 21:37 | XMS REPORT ---
Author Author Migration, Doctor Organization [facility] Address Unknown Phone Unavailable Care Team Providers Care Product Tester Name Role Phone Migration, Doctor Unavailable Unavailable PROBLEMS Type Condition ICD9-CM Code DDP92-WS Code Onset Dates Condition Status SNOMED Code Problem Hypothyroidism, unspecified type E03.9 Active 52372361 Problem Moderate persistent asthma with acute exacerbation J45.41 Active [id number] Problem Moderate persistent asthma without complication J45.40 Active 541061862 Problem Hypothyroidism (acquired) E03.9 Active 810340502 Problem Essential hypertension I10 Active 70001503 Problem Seasonal allergic rhinitis due to pollen J30.1 Active [id number] ALLERGIES No Information ENCOUNTERS Encounter Location Date Diagnosis [facility] [address] [address] Jun, [facility] [id number] [place] [address] Jun, [facility] [address] [address] Apr, Acute pancreatitis, unspecified complication status, unspecified pancreatitis type K85.90 ; Dysuria R30.0 ; Hypothyroidism, unspecified type E03.9 and Moderate persistent asthma with acute exacerbation J45.41 [facility] [id number] [place] [address] Mar, [facility] [id number] [place] [address] Mar, Hypothyroidism, unspecified type E03.9 [facility] [address] [address] Mar, Seasonal allergic rhinitis due to pollen J30.1 ; Moderate persistent asthma without complication J45.40 and Essential hypertension I10 [facility] [address] [address] Feb, [facility] [id number] [place] [address] Jan, Moderate persistent asthma with acute exacerbation J45.41 [facility] [id number] [place] [address] Jan, [facility] [id number] [place] [address] May, Severe persistent asthma without complication J45.50 ; Chronic nonseasonal allergic rhinitis due to other allergen J30.89 and Hypothyroidism, unspecified type E03.9 [facility] [address] [address] Apr, [facility] [id number] [place] [address] Apr, [facility] [address] [address] Apr, [facility] [id number] [place] [address] Mar, Hypothyroidism (acquired) E03.9 [facility] [id number] [place] [address] Mar, [facility] [id number] [place] [address] Mar, Chest wall pain R07.89 [facility] [id number] [place] [address] Mar, [facility] [id number] [place] [address] Dec, Moderate persistent asthma without complication J45.40 [facility] [id number] [place] [address] Nov, [facility] [id number] [place] [address] Aug, Moderate persistent asthma with acute exacerbation J45.41 and Hypothyroidism, unspecified type E03.9 [facility] [id number] [address] Aug, Moderate persistent asthma with acute exacerbation J45.41 and Hypothyroidism, unspecified type E03.9 [facility] [id number] [address] Sep, [facility] [address] [place] [address] Sep, [facility] [address] [place] [address] Jul, [facility] [address] [place] [address] Jul, [facility] [address] [place] [address] Jun, [facility] [address] [address] Jun, [facility] [address] [place] [address] Jun, [facility] [address] [place] [address] Jun, [facility] [address] [place] [address] Jun, [facility] [address] [place] [address] Jun, [facility] [address] [place] [address] May, [facility] [address], [place] [address] May, [facility] [address] [place] [address] Apr, [facility] [address], [place] [address] Apr, [facility] [address] [facility] [place] [address] Apr, [facility] [id number] [address] Apr, [facility] [address] [place] [address] Feb, [facility] [id number] [address] Feb, [facility] [address] [place] [address] Feb, [facility] [id number] [address] Feb, [facility] [address] [place] [address] Jan, [facility] [address], [place] [address] Jan, [facility] [address] [place] [address] Dec, [facility] [id number] [address] Dec, [facility] [address] [place] [address] Dec, [facility] [address] [place] [address] Dec, [facility] [place] [facility] [id number] [address] Dec, [facility] [place] [facility] [id number] [address] Dec, [facility] [place] [facility] [id number] [address] Nov, [facility] [place] [facility] [id number] [address] Nov, [facility] [place] [facility] [id number] [address] Nov, [facility] [place] [facility] [address] [id number] [place] [address] Nov, [facility] [place] [facility] [address] [id number] [place] [address] October, [facility] [place] [facility] [address] [id number] [place] [address] October, [facility] [place] [facility] [address] [id number] [place] [address] October, [facility] [place] [facility] [address] [id number] [place] [address] October, [facility] [place] [facility] [address] [id number] [place] [address] Sep, [facility] [place] [facility] [address] [id number] [place] [address] Sep, [facility] [place] [facility] [address] [id number] [place] [address] Jul, [facility] [place] [facility] [address] [id number] [place] [address] Jun, [facility] [place] [facility] [address] [id number] [place] [address] Jun, [facility] [place] [facility] [address] [id number] [place] [address] Jun, [facility] [place] [facility] [address] [id number] [place] [address] Jun, [facility] [place] [facility] [address] [id number] [place] [address] Jun, [facility] [place] [facility] [address] [id number] [place] [address] May, [facility] [place] [facility] [address] [id number] [place] [address] May, [facility] [place] [facility] [address] [id number] [place] [address] May, [facility] [address] [id number] [place] [address] May, [facility] [place] [facility] [address] [id number] [place] [address] Feb, [facility] [address] [id number] [place] [address] Dec, [facility] [place] [facility] [address] [id number] [place] [address] Dec, [facility] [address] [id number] [place] [address] Dec, [facility] [place] [facility] [address] [id number] [place] [address] Dec, [facility] [address] [id number] [place] [address] Dec, [facility] [place] [facility] [address] [id number] [place] [address] Nov, [facility] [address] [id number] [place] [address] Nov, [facility] [place] [facility] [address] [id number] [place] [address] Nov, [facility] [address] [id number], [place] [address] Nov, [facility] [place] [facility] [address] [id number] [place] [address] October, [facility] [place] [facility] [address] [id number] [place] [address] October, [facility] [place] [facility] [address] [id number] [place] [address] October, [facility] [place] [facility] [address] [id number] [place] [address] Aug, [facility] [place] [facility] [address] [id number] [place] [address] Aug, [facility] [place] [facility] [address] [id number] [place] [address] Jul, [facility] [place] [facility] [address] [id number] [place] [address] Jun, [facility] [place] [facility] [address] [id number] [place] [address] Jun, [facility] [place] [facility] [address] [id number] [place] [address] May, [facility] [place] [facility] [address] [id number] [place] [address] May, [facility] [place] [facility] [address] [id number] [place] [address] May, [facility] [place] [facility] [address] [id number] [place] [address] May, [facility] [place] [facility] [address] [id number] [place] [address] May, [facility] [place] [facility] [address] [id number] [place] [address] May, [facility] [place] [facility] [address] [facility] [id number] [place] [address] May, [facility] [place] [facility] [address] [id number] [place] [address] Mar, [facility] [place] [facility] [address] [id number] [place] [address] Mar, [facility] [place] [facility] [address] [id number] [place] [address] Mar, [facility] [place] [facility] [address] [id number] [place] [address] Feb, [facility] [place] [facility] [address] [id number] [place] [address] 08 Feb, 2012 [facility] [place] [facility] [address] [id number] [place] [address] 05 Feb, 2011 [facility] [place] [facility] [address] [id number] [place] [address] Feb, [facility] [place] [facility] [address] [id number] [place] [address] Feb, [facility] [place] [facility] [address] [id number] [place] [address] Feb, [facility] [place] [facility] [address] [id number] [place] [address] Jan, [facility] [place] [facility] [address] [id number] [place] [address] Jan, [facility] [place] [facility] [address] [id number] [place] [address] Jan, [facility] [place] [facility] [address] [id number] [place] [address] Jan, [facility] [place] [facility] [address] [id number] [place] [address] Jan, [facility] [place] [facility] [address] [id number] [place] [address] Jan, [facility] [place] [facility] [address] [id number] [place] [address] Jan, [facility] [place] [facility] [address] [id number] [place] [address] Jan, [facility] [place] [facility] [address] [id number] [place] [address] Jan, [facility] [place] [facility] [address] [id number] [place] [address] Jan, [facility] [place] [facility] [address] [id number] [place] [address] Jan, [facility] [place] [facility] [address] [id number] [place] [address] Jan, [facility] [place] [facility] [address] [id number] [place] [address] Dec, [facility] [place] [facility] [address] [id number] [place] [address] Dec, [facility] [place] [facility] [address] [id number] [place] [address] Dec, [facility] [place] [facility] [address] [id number] [place] [address] Dec, [facility] [place] [facility] [address] [id number] [place] [address] Dec, [facility] [place] [facility] [address] [id number] [place] [address] Dec, [facility] [place] [facility] [address] [id number] [place] [address] Nov, [facility] [place] [facility] [address] [id number] [place] [address] Nov, [facility] [place] [facility] [address] [id number] [place] [address] Nov, [facility] [place] [facility] [address] [id number] [place] [address] Nov, [facility] [place] [facility] [address] [id number] [place] [address] Nov, [facility] [place] [facility] [address] [id number] [place] [address] October, [facility] [place] [facility] [address] [id number] [place] [address] October, [facility] [place] [facility] [address] [id number] [place] [address] October, [facility] [place] [facility] [address] [id number] [place] [address] October, [facility] [address], [place] [address] October, [facility] [address], [place] [address] October, [facility] [address] [facility] [id number], [place] [address] October, [facility] [address], [place] [address] October, [facility] [address] [facility] [id number], [place] [address] October, [facility] [address], [place] [address] October, [facility] [address], [place] [address] October, [facility] [address], [place] [address] October, [facility] [address], [place] [address] Sep, [facility] [address], [place] [address] Sep, [facility] [id number] [address] Sep, IMMUNIZATIONS No Known Immunizations SOCIAL HISTORY Never Assessed REASON FOR VISIT [facility] [place] VITAL SIGNS MEDICATIONS Unknown [...] x4 Hospitalization History chest pain Hospitalization History [place] [address]
--- OUTSIDE RECORDS SUMMARY | 2018-12-27 21:38 | XMS REPORT ---
Author Author Migration, Doctor Organization [facility] Address Unknown Phone Unavailable Care Team Providers Care Doctor Of Chiropractic Name Role Phone Migration, Doctor Unavailable Unavailable PROBLEMS Type Condition ICD9-CM Code [id number] Code Onset Dates Condition Status SNOMED Code Problem Hypothyroidism, unspecified type E03.9 Active 44471044 Problem Moderate persistent asthma with acute exacerbation J45.41 Active 917203126349157 Problem Moderate persistent asthma without complication J45.40 Active 163264982 Problem Hypothyroidism (acquired) E03.9 Active 419917213 Problem Essential hypertension I10 Active 35047479 Problem Seasonal allergic rhinitis due to pollen J30.1 Active [id number] ALLERGIES No Information ENCOUNTERS Encounter Location Date Diagnosis [facility] [address] [address] Jun, [facility] [id number] [place] [address] Jun, [facility] [address] [address] Apr, Acute pancreatitis, unspecified complication status, unspecified pancreatitis type K85.90 ; Dysuria R30.0 ; Hypothyroidism, unspecified type E03.9 and Moderate persistent asthma with acute exacerbation J45.41 [facility] [id number] [place] [address] Mar, [facility] [id number] [place] [address] Mar, Hypothyroidism, unspecified type E03.9 [facility] [address] [address] Mar, Seasonal allergic rhinitis due to pollen J30.1 ; Moderate persistent asthma without complication J45.40 and Essential hypertension I10 [facility] [address] [address] Feb, [facility] [id number] [place] [address] Jan, Moderate persistent asthma with acute exacerbation J45.41 [facility] [id number] [place] [address] Jan, [facility] [id number] [place] [address] May, Severe persistent asthma without complication J45.50 ; Chronic nonseasonal allergic rhinitis due to other allergen J30.89 and Hypothyroidism, unspecified type E03.9 [facility] [address] [address] Apr, [facility] [id number] [place] [address] Apr, [facility] [address] [address] Apr, [facility] [id number] [place] [address] Mar, Hypothyroidism (acquired) E03.9 [facility] [id number] [place] [address] Mar, [facility] [id number] [place] [address] Mar, Chest wall pain R07.89 [facility] [id number] [place] [address] Mar, [facility] [id number] [place] [address] Dec, Moderate persistent asthma without complication J45.40 [facility] [id number] [place] [address] Nov, [facility] [id number] [place] [address] Aug, Moderate persistent asthma with acute exacerbation J45.41 and Hypothyroidism, unspecified type E03.9 [facility] [id number] [address] Aug, Moderate persistent asthma with acute exacerbation J45.41 and Hypothyroidism, unspecified type E03.9 [facility] [id number] [address] Sep, [facility] [address] [address] Sep, [facility] [address] [place] [address] Jul, [facility] [id number] [place] [address] Jul, [facility] [address] [place] [address] Jun, [facility] [address] [address] Jun, [facility] [address] [address] Jun, [facility] [address] [address] Jun, [facility] [address] [place] [address] Jun, [facility] [address] [address] Jun, [facility] [address] [place] [address] May, [facility] [address] [address] May, [facility] [address] [place] [address] Apr, [facility] [address] [address] Apr, [facility] [address] [place] [address] Apr, [facility] [id number] [address] Apr, [facility] [address] [place] [address] Feb, [facility] [id number] [address] Feb, [facility] [address] [place] [address] Feb, [facility] [id number] [address] Feb, [facility] [address] [place] [address] Jan, [facility] [address] [address] Jan, [facility] [address] [place] [address] Dec, [facility] [id number] [address] Dec, [facility] [address] [place] [address] Dec, [facility] [address] [place] [address] Dec, [facility] [place] [facility] [id number] [address] Dec, [facility] [place] [facility] [id number] [address] Dec, [facility] [place] [facility] [id number] [address] Nov, [facility] [place] [facility] [id number] [address] Nov, [facility] [place] [facility] [id number] [address] Nov, [facility] [place] [facility] [address] [id number] [place] [address] Nov, [facility] [place] [facility] [address] [id number] [place] [address] October, [facility] [place] [facility] [address] [id number] [place] [address] October, [facility] [place] [facility] [address] [id number] [place] [address] October, [facility] [place] [facility] [address] [id number] [place] [address] October, [facility] [place] [facility] [address] [id number] [place] [address] Sep, [facility] [place] [facility] [address] [id number] [place] [address] Sep, [facility] [place] [facility] [address] [id number] [place] [address] Jul, [facility] [place] [facility] [address] [id number] [place] [address] Jun, [facility] [place] [facility] [address] [id number] [place] [address] Jun, [facility] [place] [facility] [address] [id number] [place] [address] Jun, [facility] [place] [facility] [address] [id number] [place] [address] Jun, [facility] [place] [facility] [address] [id number] [place] [address] Jun, [facility] [place] [facility] [address] [id number] [place] [address] May, [facility] [place] [facility] [address] [id number] [place] [address] May, [facility] [place] [facility] [address] [id number] [place] [address] May, [facility] [address] [id number] [place] [address] May, [facility] [place] [facility] [address] [id number] [place] [address] Feb, [facility] [address] [id number] [place] [address] Dec, [facility] [place] [facility] [address] [id number] [place] [address] Dec, [facility] [address] [id number] [place] [address] Dec, [facility] [place] [facility] [address] [id number] [place] [address] Dec, [facility] [address] [id number] [place] [address] Dec, [facility] [place] [facility] [address] [id number] [place] [address] Nov, [facility] [address] [id number] [place] [address] Nov, [facility] [place] [facility] [address] [id number] [place] [address] Nov, [facility] [address] [id number] [address] Nov, [facility] [place] [facility] [address] [id number] [place] [address] October, [facility] [place] [facility] [address] [id number] [place] [address] October, [facility] [place] [facility] [address] [id number] [place] [address] October, [facility] [place] [facility] [address] [id number] [place] [address] Aug, [facility] [place] [facility] [address] [id number] [place] [address] Aug, [facility] [place] [facility] [address] [id number] [place] [address] Jul, [facility] [place] [facility] [address] [id number] [place] [address] Jun, [facility] [place] [facility] [address] [id number] [place] [address] Jun, [facility] [place] [facility] [address] [id number] [place] [address] May, [facility] [place] [facility] [address] [id number] [place] [address] May, [facility] [place] [facility] [address] [id number] [place] [address] May, [facility] [place] [facility] [address] [id number] [place] [address] May, [facility] [place] [facility] [address] [id number] [place] [address] May, [facility] [place] [facility] [address] [id number] [place] [address] May, [facility] [place] [facility] [address] [facility] [id number] [place] [address] May, [facility] [place] [facility] [address] [id number] [place] [address] Mar, [facility] [place] [facility] [address] [id number] [place] [address] Mar, [facility] [place] [facility] [address] [id number] [place] [address] Mar, [facility] [place] [facility] [address] [id number] [place] [address] Feb, [facility] [place] [facility] [address] [id number] [place] [address] 08 Feb, 2012 [facility] [place] [facility] [address] [id number] [place] [address] 05 Feb, 2011 [facility] [place] [facility] [address] [id number] [place] [address] Feb, [facility] [place] [facility] [address] [id number] [place] [address] Feb, [facility] [place] [facility] [address] [id number] [place] [address] Feb, [facility] [place] [facility] [address] [id number] [place] [address] Jan, [facility] [place] [facility] [address] [id number] [place] [address] Jan, [facility] [place] [facility] [address] [id number] [place] [address] Jan, [facility] [place] [facility] [address] [id number] [place] [address] Jan, [facility] [place] [facility] [address] [id number] [place] [address] Jan, [facility] [place] [facility] [address] [id number] [place] [address] Jan, [facility] [place] [facility] [address] [id number] [place] [address] Jan, [facility] [place] [facility] [address] [id number] [place] [address] Jan, [facility] [place] [facility] [address] [id number] [place] [address] Jan, [facility] [place] [facility] [address] [id number] [place] [address] Jan, [facility] [place] [facility] [address] [id number] [place] [address] Jan, [facility] [place] [facility] [address] [id number] [place] [address] Jan, [facility] [place] [facility] [address] [id number] [place] [address] Dec, [facility] [place] [facility] [address] [id number] [place] [address] Dec, [facility] [place] [facility] [address] [id number] [place] [address] Dec, [facility] [place] [facility] [address] [id number] [place] [address] Dec, [facility] [place] [facility] [address] [id number] [place] [address] Dec, [facility] [place] [facility] [address] [id number] [place] [address] Dec, [facility] [place] [facility] [address] [id number] [place] [address] Nov, [facility] [place] [facility] [address] [id number] [place] [address] Nov, [facility] [place] [facility] [address] [id number] [place] [address] Nov, [facility] [place] [facility] [address] [id number] [place] [address] Nov, [facility] [place] [facility] [address] [id number] [place] [address] Nov, [facility] [place] [facility] [address] [id number] [place] [address] October, [facility] [place] [facility] [address] [id number] [place] [address] October, [facility] [place] [facility] [address] [id number] [place] [address] October, [facility] [place] [facility] [address] [id number] [place] [address] October, [facility] [address] [address] October, [facility] [address] [address] October, [facility] [address] [facility] [id number] [address] October, [facility] [address] [address] October, [facility] [address] [facility] [id number] [address] October, [facility] [address] [address] October, [facility] [address] [address] October, [facility] [address] [address] October, [facility] [address] [address] Sep, [facility] [address] [address] Sep, [facility] [id number] [address] Sep, IMMUNIZATIONS No Known Immunizations SOCIAL HISTORY Never Assessed REASON FOR VISIT [facility] PLAN OF CARE VITAL SIGNS MEDICATIONS Unknown [...] x4 Hospitalization History chest pain Hospitalization History [place] [address]
--- OUTSIDE RECORDS SUMMARY | 2018-12-27 21:38 | XMS REPORT ---
Author Author Migration, Doctor Organization [facility] Address Unknown Phone Unavailable Care Team Providers Care Mail Order Sorter Name Role Phone Migration, Doctor Unavailable Unavailable PROBLEMS Type Condition ICD9-CM Code NEI71-VX Code Onset Dates Condition Status SNOMED Code Problem Hypothyroidism, unspecified type E03.9 Active 23629425 Problem Moderate persistent asthma with acute exacerbation J45.41 Active 388197570545267 Problem Moderate persistent asthma without complication J45.40 Active 871348204 Problem Hypothyroidism (acquired) E03.9 Active 639242459 Problem Essential hypertension I10 Active 55401818 Problem Seasonal allergic rhinitis due to pollen J30.1 Active 78347046 ALLERGIES No Information ENCOUNTERS Encounter Location Date Diagnosis [facility] [address] [address] Jun, [facility] [id number] [place] [address] Jun, [facility] [address] [address] Apr, Acute pancreatitis, unspecified complication status, unspecified pancreatitis type K85.90 ; Dysuria R30.0 ; Hypothyroidism, unspecified type E03.9 and Moderate persistent asthma with acute exacerbation J45.41 [facility] [id number] [place] [address] Mar, [facility] [id number] [place] [address] Mar, Hypothyroidism, unspecified type E03.9 [facility] [address] [address] Mar, Seasonal allergic rhinitis due to pollen J30.1 ; Moderate persistent asthma without complication J45.40 and Essential hypertension I10 [facility] [address] [address] Feb, [facility] [id number] [place] [address] Jan, Moderate persistent asthma with acute exacerbation J45.41 [facility] [id number] [place] [address] Jan, [facility] [id number] [place] [address] May, Severe persistent asthma without complication J45.50 ; Chronic nonseasonal allergic rhinitis due to other allergen J30.89 and Hypothyroidism, unspecified type E03.9 [facility] [address] [address] Apr, [facility] [id number] [place] [address] Apr, [facility] [address] [address] Apr, [facility] [id number] [place] [address] Mar, Hypothyroidism (acquired) E03.9 [facility] [id number] [place] [address] Mar, [facility] [id number] [place] [address] Mar, Chest wall pain R07.89 [facility] [id number] [place] [address] Mar, [facility] [id number] [place] [address] Dec, Moderate persistent asthma without complication J45.40 [facility] [id number] [place] [address] Nov, [facility] [id number] [place] [address] Aug, Moderate persistent asthma with acute exacerbation J45.41 and Hypothyroidism, unspecified type E03.9 [facility] [address] [id number] [address] Aug, Moderate persistent asthma with acute exacerbation J45.41 and Hypothyroidism, unspecified type E03.9 [facility] [address] [id number] [address] Sep, [facility] [id number] [address] Sep, [facility] [address] [place] [address] Jul, [facility] [id number] [place] [address] Jul, [facility] [address] [place] [address] Jun, [facility] [id number] [address] Jun, [facility] [id number] [address] Jun, [facility] [id number] [place] [address] Jun, [facility] [address] [place] [address] Jun, [facility] [id number] [address] Jun, [facility] [address] [place] [address] May, [facility] [id number] [place] [address] May, [facility] [address] [place] [address] Apr, [facility] [address] [place] [address] Apr, [facility] [address] [place] [facility] [place] [address] Apr, [facility] [address] [id number], [place] [address] Apr, [facility] [address] [place] [address] Feb, [facility] [id number] [address] Feb, [facility] [address] [place] [address] Feb, [facility] [id number] [address] Feb, [facility] [address] [place] [address] Jan, [facility] [address], [place] [address] Jan, [facility] [address] [place] [address] Dec, [facility] [id number] [address] Dec, [facility] [address] [place] [address] Dec, [facility] [address] [place] [address] Dec, [facility] [place] [facility] [id number], [place] [address] Dec, [facility] [place] [facility] [id number], [place] [address] Dec, [facility] [place] [facility] [id number], [place] [address] Nov, [facility] [place] [facility] [id number], [place] [address] Nov, [facility] [place] [facility] [id number], [place] [address] Nov, [facility] [place] [facility] [address] [id number] [place] [address] Nov, [facility] [place] [facility] [address] [id number] [place] [address] October, [facility] [place] [facility] [address] [id number] [place] [address] October, [facility] [place] [facility] [address] [id number] [place] [address] October, [facility] [place] [facility] [address] [id number] [place] [address] October, [facility] [place] [facility] [address] [id number] [place] [address] Sep, [facility] [place] [facility] [address] [id number] [place] [address] Sep, [facility] [place] [facility] [address] [id number] [place] [address] Jul, [facility] [place] [facility] [address] [id number] [place] [address] Jun, [facility] [place] [facility] [address] [id number] [place] [address] Jun, [facility] [place] [facility] [address] [id number] [place] [address] Jun, [facility] [place] [facility] [address] [id number] [place] [address] Jun, [facility] [place] [facility] [address] [id number] [place] [address] Jun, [facility] [place] [facility] [address] [id number] [place] [address] May, [facility] [place] [facility] [address] [id number] [place] [address] May, [facility] [place] [facility] [address] [id number] [place] [address] May, [facility] [address] [id number] [place] [address] May, [facility] [place] [facility] [address] [id number] [place] [address] Feb, [facility] [address] [id number] [place] [address] Dec, [facility] [place] [facility] [address] [id number] [place] [address] Dec, [facility] [address] [id number] [place] [address] Dec, [facility] [place] [facility] [address] [id number] [place] [address] Dec, [facility] [address] [id number] [place] [address] Dec, [facility] [place] [facility] [address] [id number] [place] [address] Nov, [facility] [address] [id number] [place] [address] Nov, [facility] [place] [facility] [address] [id number] [place] [address] Nov, [facility] [address] [id number], [place] [address] Nov, [facility] [place] [facility] [address] [id number] [place] [address] October, [facility] [place] [facility] [address] [id number] [place] [address] October, [facility] [place] [facility] [address] [id number] [place] [address] October, [facility] [place] [facility] [address] [id number] [place] [address] Aug, [facility] [place] [facility] [address] [id number] [place] [address] Aug, [facility] [place] [facility] [address] [id number] [place] [address] Jul, [facility] [place] [facility] [address] [id number] [place] [address] Jun, [facility] [place] [facility] [address] [id number] [place] [address] Jun, [facility] [place] [facility] [address] [id number] [place] [address] May, [facility] [place] [facility] [address] [id number] [place] [address] May, [facility] [place] [facility] [address] [id number] [place] [address] May, [facility] [place] [facility] [address] [id number] [place] [address] May, [facility] [place] [facility] [address] [id number] [place] [address] May, [facility] [place] [facility] [address] [id number] [place] [address] May, [facility] [place] [facility] [address] [facility] [id number] [place] [address] May, [facility] [place] [facility] [address] [id number] [place] [address] Mar, [facility] [place] [facility] [address] [id number] [place] [address] Mar, [facility] [place] [facility] [address] [id number] [place] [address] Mar, [facility] [place] [facility] [address] [id number] [place] [address] Feb, [facility] [place] [facility] [address] [id number] [place] [address] 08 Feb, 2012 [facility] [place] [facility] [address] [id number] [place] [address] 05 Feb, 2011 [facility] [place] [facility] [address] [id number] [place] [address] Feb, [facility] [place] [facility] [address] [id number] [place] [address] Feb, [facility] [place] [facility] [address] [id number] [place] [address] Feb, [facility] [place] [facility] [address] [id number] [place] [address] Jan, [facility] [place] [facility] [address] [id number] [place] [address] Jan, [facility] [place] [facility] [address] [id number] [place] [address] Jan, [facility] [place] [facility] [address] [id number] [place] [address] Jan, [facility] [place] [facility] [address] [id number] [place] [address] Jan, [facility] [place] [facility] [address] [id number] [place] [address] Jan, [facility] [place] [facility] [address] [id number] [place] [address] Jan, [facility] [place] [facility] [address] [id number] [place] [address] Jan, [facility] [place] [facility] [address] [id number] [place] [address] Jan, [facility] [place] [facility] [address] [id number] [place] [address] Jan, [facility] [place] [facility] [address] [id number] [place] [address] Jan, [facility] [place] [facility] [address] [id number] [place] [address] Jan, [facility] [place] [facility] [address] [id number] [place] [address] Dec, [facility] [place] [facility] [address] [id number] [place] [address] Dec, [facility] [place] [facility] [address] [id number] [place] [address] Dec, [facility] [place] [facility] [address] [id number] [place] [address] Dec, [facility] [place] [facility] [address] [id number] [place] [address] Dec, [facility] [place] [facility] [address] [id number] [place] [address] Dec, [facility] [place] [facility] [address] [id number] [place] [address] Nov, [facility] [place] [facility] [address] [id number] [place] [address] Nov, [facility] [place] [facility] [address] [id number] [place] [address] Nov, [facility] [place] [facility] [address] [id number] [place] [address] Nov, [facility] [place] [facility] [address] [id number] [place] [address] Nov, [facility] [place] [facility] [address] [id number] [place] [address] October, [facility] [place] [facility] [address] [id number] [place] [address] October, [facility] [place] [facility] [address] [id number] [place] [address] October, [facility] [place] [facility] [address] [id number] [place] [address] October, [facility] [id number], [place] [address] October, [facility] [id number], [place] [address] October, [facility] [address] [facility] [id number], [place] [address] October, [facility] [id number], [place] [address] October, [facility] [address] [facility] [id number], [place] [address] October, [facility] [id number], [place] [address] October, [facility] [address], [place] [address] October, [facility] [address], [place] [address] October, [facility] [id number], [place] [address] Sep, [facility] [id number], [place] [address] Sep, [facility] [id number] [address] Sep, IMMUNIZATIONS No Known Immunizations SOCIAL HISTORY Never Assessed REASON FOR VISIT [facility] PLAN OF CARE VITAL SIGNS MEDICATIONS Unknown [...] x4 Hospitalization History chest pain Hospitalization History [place] [address]
--- OUTSIDE RECORDS SUMMARY | 2018-12-27 21:39 | XMS REPORT ---
Author Author Migration, Doctor Organization [facility] Address Unknown Phone Unavailable Care Team Providers Care Chisel Worker Name Role Phone Migration, Doctor Unavailable Unavailable PROBLEMS Type Condition ICD9-CM Code ZGD99-RF Code Onset Dates Condition Status SNOMED Code Problem Hypothyroidism, unspecified type E03.9 Active 33471638 Problem Moderate persistent asthma with acute exacerbation J45.41 Active 619860173976639 Problem Moderate persistent asthma without complication J45.40 Active 212631089 Problem Hypothyroidism (acquired) E03.9 Active 615748970 Problem Essential hypertension I10 Active 62251001 Problem Seasonal allergic rhinitis due to pollen J30.1 Active 44500346 ALLERGIES No Information ENCOUNTERS Encounter Location Date Diagnosis [facility] [address] [address] Jun, [facility] [id number] [place] [address] Jun, [facility] [address] [address] Apr, Acute pancreatitis, unspecified complication status, unspecified pancreatitis type K85.90 ; Dysuria R30.0 ; Hypothyroidism, unspecified type E03.9 and Moderate persistent asthma with acute exacerbation J45.41 [facility] [id number] [place] [address] Mar, [facility] [id number] [place] [address] Mar, Hypothyroidism, unspecified type E03.9 [facility] [address] [address] Mar, Seasonal allergic rhinitis due to pollen J30.1 ; Moderate persistent asthma without complication J45.40 and Essential hypertension I10 [facility] [address] [address] Feb, [facility] [id number] [place] [address] Jan, Moderate persistent asthma with acute exacerbation J45.41 [facility] [id number] [place] [address] Jan, [facility] [id number] [place] [address] May, Severe persistent asthma without complication J45.50 ; Chronic nonseasonal allergic rhinitis due to other allergen J30.89 and Hypothyroidism, unspecified type E03.9 [facility] [address] [address] Apr, [facility] [id number] [place] [address] Apr, [facility] [address] [address] Apr, [facility] [id number] [place] [address] Mar, Hypothyroidism (acquired) E03.9 [facility] [id number] [place] [address] Mar, [facility] [id number] [place] [address] Mar, Chest wall pain R07.89 [facility] [id number] [place] [address] Mar, [facility] [id number] [place] [address] Dec, Moderate persistent asthma without complication J45.40 [facility] [id number] [place] [address] Nov, [facility] [id number] [place] [address] Aug, Moderate persistent asthma with acute exacerbation J45.41 and Hypothyroidism, unspecified type E03.9 [facility] [id number] [address] Aug, Moderate persistent asthma with acute exacerbation J45.41 and Hypothyroidism, unspecified type E03.9 [facility] [id number] [address] Sep, [facility] [id number] [address] Sep, [facility] [address] [place] [address] Jul, [facility] [id number] [place] [address] Jul, [facility] [address] [place] [address] Jun, [facility] [id number] [address] Jun, [facility] [id number] [address] Jun, [facility] [id number] [address] Jun, [facility] [address] [place] [address] Jun, [facility] [id number] [address] Jun, [facility] [address] [place] [address] May, [facility] [id number] [address] May, [facility] [address] [place] [address] Apr, [facility] [id number] [address] Apr, [facility] [address] [facility] [place] [address] Apr, [facility] [id number] [address] Apr, [facility] [address] [place] [address] Feb, [facility] [id number] [address] Feb, [facility] [address] [place] [address] Feb, [facility] [id number], [place] [address] Feb, [facility] [address] [place] [address] Jan, [facility] [id number] [address] Jan, [facility] [address] [place] [address] Dec, [facility] [id number] [address] Dec, [facility] [address] [place] [address] Dec, [facility] [address] [place] [address] Dec, [facility] [place] [facility] [id number] [address] Dec, [facility] [place] [facility] [id number] [address] Dec, [facility] [place] [facility] [id number] [address] Nov, [facility] [place] [facility] [id number] [address] Nov, [facility] [place] [facility] [id number] [address] Nov, [facility] [place] [facility] [address] [id number] [place] [address] Nov, [facility] [place] [facility] [address] [id number] [place] [address] October, [facility] [place] [facility] [address] [id number] [place] [address] October, [facility] [place] [facility] [address] [id number] [place] [address] October, [facility] [place] [facility] [address] [id number] [place] [address] October, [facility] [place] [facility] [address] [id number] [place] [address] Sep, [facility] [place] [facility] [address] [id number] [place] [address] Sep, [facility] [place] [facility] [address] [id number] [place] [address] Jul, [facility] [place] [facility] [address] [id number] [place] [address] Jun, [facility] [place] [facility] [address] [id number] [place] [address] Jun, [facility] [place] [facility] [address] [id number] [place] [address] Jun, [facility] [place] [facility] [address] [id number] [place] [address] Jun, [facility] [place] [facility] [address] [id number] [place] [address] Jun, [facility] [place] [facility] [address] [id number] [place] [address] May, [facility] [place] [facility] [address] [id number] [place] [address] May, [facility] [place] [facility] [address] [id number] [place] [address] May, [facility] [address] [id number] [place] [address] May, [facility] [place] [facility] [address] [id number] [place] [address] Feb, [facility] [address] [id number] [place] [address] Dec, [facility] [place] [facility] [address] [id number] [place] [address] Dec, [facility] [address] [id number] [place] [address] Dec, [facility] [place] [facility] [address] [id number] [place] [address] Dec, [facility] [address] [id number] [place] [address] Dec, [facility] [place] [facility] [address] [id number] [place] [address] Nov, [facility] [address] [id number] [place] [address] Nov, [facility] [place] [facility] [address] [id number] [place] [address] Nov, [facility] [address] [id number] [address] Nov, [facility] [place] [facility] [address] [id number] [place] [address] October, [facility] [place] [facility] [address] [id number] [place] [address] October, [facility] [place] [facility] [address] [id number] [place] [address] October, [facility] [place] [facility] [address] [id number] [place] [address] Aug, [facility] [place] [facility] [address] [id number] [place] [address] Aug, [facility] [place] [facility] [address] [id number] [place] [address] Jul, [facility] [place] [facility] [address] [id number] [place] [address] Jun, [facility] [place] [facility] [address] [id number] [place] [address] Jun, [facility] [place] [facility] [address] [id number] [place] [address] May, [facility] [place] [facility] [address] [id number] [place] [address] May, [facility] [place] [facility] [address] [id number] [place] [address] May, [facility] [place] [facility] [address] [id number] [place] [address] May, [facility] [place] [facility] [address] [id number] [place] [address] May, [facility] [place] [facility] [address] [id number] [place] [address] May, [facility] [place] [facility] [address] [facility] [id number] [place] [address] May, [facility] [place] [facility] [address] [id number] [place] [address] Mar, [facility] [place] [facility] [address] [id number] [place] [address] Mar, [facility] [place] [facility] [address] [id number] [place] [address] Mar, [facility] [place] [facility] [address] [id number] [place] [address] Feb, [facility] [place] [facility] [address] [id number] [place] [address] 08 Feb, 2012 [facility] [place] [facility] [address] [id number] [place] [address] 05 Feb, 2011 [facility] [place] [facility] [address] [id number] [place] [address] Feb, [facility] [place] [facility] [address] [id number] [place] [address] Feb, [facility] [place] [facility] [address] [id number] [place] [address] Feb, [facility] [place] [facility] [address] [id number] [place] [address] Jan, [facility] [place] [facility] [address] [id number] [place] [address] Jan, [facility] [place] [facility] [address] [id number] [place] [address] Jan, [facility] [place] [facility] [address] [id number] [place] [address] Jan, [facility] [place] [facility] [address] [id number] [place] [address] Jan, [facility] [place] [facility] [address] [id number] [place] [address] Jan, [facility] [place] [facility] [address] [id number] [place] [address] Jan, [facility] [place] [facility] [address] [id number] [place] [address] Jan, [facility] [place] [facility] [address] [id number] [place] [address] Jan, [facility] [place] [facility] [address] [id number] [place] [address] Jan, [facility] [place] [facility] [address] [id number] [place] [address] Jan, [facility] [place] [facility] [address] [id number] [place] [address] Jan, [facility] [place] [facility] [address] [id number] [place] [address] Dec, [facility] [place] [facility] [address] [id number] [place] [address] Dec, [facility] [place] [facility] [address] [id number] [place] [address] Dec, [facility] [place] [facility] [address] [id number] [place] [address] Dec, [facility] [place] [facility] [address] [id number] [place] [address] Dec, [facility] [place] [facility] [address] [id number] [place] [address] Dec, [facility] [place] [facility] [address] [id number] [place] [address] Nov, [facility] [place] [facility] [address] [id number] [place] [address] Nov, [facility] [place] [facility] [address] [id number] [place] [address] Nov, [facility] [place] [facility] [address] [id number] [place] [address] Nov, [facility] [place] [facility] [address] [id number] [place] [address] Nov, [facility] [place] [facility] [address] [id number] [place] [address] October, [facility] [place] [facility] [address] [id number] [place] [address] October, [facility] [place] [facility] [address] [id number] [place] [address] October, [facility] [place] [facility] [address] [id number] [place] [address] October, [facility] [id number] [address] October, [facility] [id number] [address] October, [facility] [address] [facility] [id number] [address] October, [facility] [id number] [address] October, [facility] [address] [facility] [id number] [address] October, [facility] [id number] [address] October, [facility] [id number] [address] October, [facility] [id number], [place] [address] October, [facility] [id number] [address] Sep, [facility] [id number] [address] Sep, [facility] [id number] [address] Sep, IMMUNIZATIONS No Known Immunizations SOCIAL HISTORY Never Assessed REASON FOR [place]ISIT [facility] [place] VITAL SIGNS MEDICATIONS Unknown [...] x4 Hospitalization History chest pain Hospitalization History [place] [address]
--- OUTSIDE RECORDS SUMMARY | 2018-12-27 21:39 | XMS REPORT ---
Author Author Migration, Doctor Organization [facility] Address Unknown Phone Unavailable Care Team Providers Care Compressed Gas Tester Name Role Phone Migration, Doctor Unavailable Unavailable PROBLEMS Type Condition ICD9-CM Code IEZ74-BR Code Onset Dates Condition Status SNOMED Code Problem Hypothyroidism, unspecified type E03.9 Active 64255594 Problem Moderate persistent asthma with acute exacerbation J45.41 Active 688837098440968 Problem Moderate persistent asthma without complication J45.40 Active 930518548 Problem Hypothyroidism (acquired) E03.9 Active 215345898 Problem Essential hypertension I10 Active 72664098 Problem Seasonal allergic rhinitis due to pollen J30.1 Active [id number] ALLERGIES No Information ENCOUNTERS Encounter Location Date Diagnosis [facility] [address] [address] Jun, [facility] [id number] [place] [address] Jun, [facility] [address] [address] Apr, Acute pancreatitis, unspecified complication status, unspecified pancreatitis type K85.90 ; Dysuria R30.0 ; Hypothyroidism, unspecified type E03.9 and Moderate persistent asthma with acute exacerbation J45.41 [facility] [id number] [place] [address] Mar, [facility] [id number] [place] [address] Mar, Hypothyroidism, unspecified type E03.9 [facility] [address] [address] Mar, Seasonal allergic rhinitis due to pollen J30.1 ; Moderate persistent asthma without complication J45.40 and Essential hypertension I10 [facility] [address] [address] Feb, [facility] [id number] [place] [address] Jan, Moderate persistent asthma with acute exacerbation J45.41 [facility] [id number] [place] [address] Jan, [facility] [id number] [place] [address] May, Severe persistent asthma without complication J45.50 ; Chronic nonseasonal allergic rhinitis due to other allergen J30.89 and Hypothyroidism, unspecified type E03.9 [facility] [address] [address] Apr, [facility] [id number] [place] [address] Apr, [facility] [address] [address] Apr, [facility] [id number] [place] [address] Mar, Hypothyroidism (acquired) E03.9 [facility] [id number] [place] [address] Mar, [facility] [id number] [place] [address] Mar, Chest wall pain R07.89 [facility] [id number] [place] [address] Mar, [facility] [id number] [place] [address] Dec, Moderate persistent asthma without complication J45.40 [facility] [id number] [place] [address] Nov, [facility] [id number] [place] [address] Aug, Moderate persistent asthma with acute exacerbation J45.41 and Hypothyroidism, unspecified type E03.9 [facility] [id number] [address] Aug, Moderate persistent asthma with acute exacerbation J45.41 and Hypothyroidism, unspecified type E03.9 [facility] [id number] [address] Sep, [facility] [address] [address] Sep, [facility] [address] [place] [address] Jul, [facility] [address] [place] [address] Jul, [facility] [address] [place] [address] Jun, [facility] [address] [address] Jun, [facility] [address] [address] Jun, [facility] [address] [address] Jun, [facility] [address] [place] [address] Jun, [facility] [address] [address] Jun, [facility] [address] [place] [address] May, [facility] [address] [address] May, [facility] [address] [place] [address] Apr, [facility] [address] [address] Apr, [facility] [address] [facility] [place] [address] Apr, [facility] [id number] [address] Apr, [facility] [address] [place] [address] Feb, [facility] [id number] [address] Feb, [facility] [address] [place] [address] Feb, [facility] [id number] [address] Feb, [facility] [address] [place] [address] Jan, [facility] [address] [address] Jan, [facility] [address] [place] [address] Dec, [facility] [id number] [address] Dec, [facility] [address] [place] [address] Dec, [facility] [address] [place] [address] Dec, [facility] [place] [facility] [id number] [address] Dec, [facility] [place] [facility] [id number] [address] Dec, [facility] [place] [facility] [id number] [address] Nov, [facility] [place] [facility] [id number] [address] Nov, [facility] [place] [facility] [id number] [address] Nov, [facility] [place] [facility] [address] [id number] [place] [address] Nov, [facility] [place] [facility] [address] [id number] [place] [address] October, [facility] [place] [facility] [address] [id number] [place] [address] October, [facility] [place] [facility] [address] [id number] [place] [address] October, [facility] [place] [facility] [address] [id number] [place] [address] October, [facility] [place] [facility] [address] [id number] [place] [address] Sep, [facility] [place] [facility] [address] [id number] [place] [address] Sep, [facility] [place] [facility] [address] [id number] [place] [address] Jul, [facility] [place] [facility] [address] [id number] [place] [address] Jun, [facility] [place] [facility] [address] [id number] [place] [address] Jun, [facility] [place] [facility] [address] [id number] [place] [address] Jun, [facility] [place] [facility] [address] [id number] [place] [address] Jun, [facility] [place] [facility] [address] [id number] [place] [address] Jun, [facility] [place] [facility] [address] [id number] [place] [address] May, [facility] [place] [facility] [address] [id number] [place] [address] May, [facility] [place] [facility] [address] [id number] [place] [address] May, [facility] [address] [id number] [place] [address] May, [facility] [place] [facility] [address] [id number] [place] [address] Feb, [facility] [address] [id number] [place] [address] Dec, [facility] [place] [facility] [address] [id number] [place] [address] Dec, [facility] [address] [id number] [place] [address] Dec, [facility] [place] [facility] [address] [id number] [place] [address] Dec, [facility] [address] [id number] [place] [address] Dec, [facility] [place] [facility] [address] [id number] [place] [address] Nov, [facility] [address] [id number] [place] [address] Nov, [facility] [place] [facility] [address] [id number] [place] [address] Nov, [facility] [address] [id number] [address] Nov, [facility] [place] [facility] [address] [id number] [place] [address] October, [facility] [place] [facility] [address] [id number] [place] [address] October, [facility] [place] [facility] [address] [id number] [place] [address] October, [facility] [place] [facility] [address] [id number] [place] [address] Aug, [facility] [place] [facility] [address] [id number] [place] [address] Aug, [facility] [place] [facility] [address] [id number] [place] [address] Jul, [facility] [place] [facility] [address] [id number] [place] [address] Jun, [facility] [place] [facility] [address] [id number] [place] [address] Jun, [facility] [place] [facility] [address] [id number] [place] [address] May, [facility] [place] [facility] [address] [id number] [place] [address] May, [facility] [place] [facility] [address] [id number] [place] [address] May, [facility] [place] [facility] [address] [id number] [place] [address] May, [facility] [place] [facility] [address] [id number] [place] [address] May, [facility] [place] [facility] [address] [id number] [place] [address] May, [facility] [place] [facility] [address] [facility] [id number] [place] [address] May, [facility] [place] [facility] [address] [id number] [place] [address] Mar, [facility] [place] [facility] [address] [id number] [place] [address] Mar, [facility] [place] [facility] [address] [id number] [place] [address] Mar, [facility] [place] [facility] [address] [id number] [place] [address] Feb, [facility] [place] [facility] [address] [id number] [place] [address] 08 Feb, 2012 [facility] [place] [facility] [address] [id number] [place] [address] 05 Feb, 2011 [facility] [place] [facility] [address] [id number] [place] [address] Feb, [facility] [place] [facility] [address] [id number] [place] [address] Feb, [facility] [place] [facility] [address] [id number] [place] [address] Feb, [facility] [place] [facility] [address] [id number] [place] [address] Jan, [facility] [place] [facility] [address] [id number] [place] [address] Jan, [facility] [place] [facility] [address] [id number] [place] [address] Jan, [facility] [place] [facility] [address] [id number] [place] [address] Jan, [facility] [place] [facility] [address] [id number] [place] [address] Jan, [facility] [place] [facility] [address] [id number] [place] [address] Jan, [facility] [place] [facility] [address] [id number] [place] [address] Jan, [facility] [place] [facility] [address] [id number] [place] [address] Jan, [facility] [place] [facility] [address] [id number] [place] [address] Jan, [facility] [place] [facility] [address] [id number] [place] [address] Jan, [facility] [place] [facility] [address] [id number] [place] [address] Jan, [facility] [place] [facility] [address] [id number] [place] [address] Jan, [facility] [place] [facility] [address] [id number] [place] [address] Dec, [facility] [place] [facility] [address] [id number] [place] [address] Dec, [facility] [place] [facility] [address] [id number] [place] [address] Dec, [facility] [place] [facility] [address] [id number] [place] [address] Dec, [facility] [place] [facility] [address] [id number] [place] [address] Dec, [facility] [place] [facility] [address] [id number] [place] [address] Dec, [facility] [place] [facility] [address] [id number] [place] [address] Nov, [facility] [place] [facility] [address] [id number] [place] [address] Nov, [facility] [place] [facility] [address] [id number] [place] [address] Nov, [facility] [place] [facility] [address] [id number] [place] [address] Nov, [facility] [place] [facility] [address] [id number] [place] [address] Nov, [facility] [place] [facility] [address] [id number] [place] [address] October, [facility] [place] [facility] [address] [id number] [place] [address] October, [facility] [place] [facility] [address] [id number] [place] [address] October, [facility] [place] [facility] [address] [id number] [place] [address] October, [facility] [address] [address] October, [facility] [address] [address] October, [facility] [address] [facility] [id number] [address] October, [facility] [address] [address] October, [facility] [address] [facility] [id number] [address] October, [facility] [address] [address] October, [facility] [address] [address] October, [facility] [address] [address] October, [facility] [address] [address] Sep, [facility] [address] [address] Sep, [facility] [id number] [address] Sep, IMMUNIZATIONS No Known Immunizations SOCIAL HISTORY Never Assessed REASON FOR VISIT [facility] PLAN OF CARE VITAL SIGNS MEDICATIONS Unknown [...] x4 Hospitalization History chest pain Hospitalization History [place] [address]
--- OUTSIDE RECORDS SUMMARY | 2018-12-27 21:39 | XMS REPORT ---
Author Author Migration, Doctor Organization [facility] [facility] Address Unknown Phone Unavailable Care Team Providers Care Ear Mold Laboratory Technician Name Role Phone Migration, Doctor Unavailable Unavailable PROBLEMS Type Condition ICD9-CM Code CRH99-OV Code Onset Dates Condition Status SNOMED Code Problem Hypothyroidism, unspecified type E03.9 Active 42871393 Problem Moderate persistent asthma with acute exacerbation J45.41 Active 902787013367779 Problem Moderate persistent asthma without complication J45.40 Active 043680512 Problem Hypothyroidism (acquired) E03.9 Active 940054947 Problem Essential hypertension I10 Active 15639415 Problem Seasonal allergic rhinitis due to pollen J30.1 Active [id number] ALLERGIES No Information ENCOUNTERS Encounter Location Date Diagnosis [facility] [address] [address] Jun, [facility] [id number] [place] [address] Jun, [facility] [address] [address] Apr, Acute pancreatitis, unspecified complication status, unspecified pancreatitis type K85.90 ; Dysuria R30.0 ; Hypothyroidism, unspecified type E03.9 and Moderate persistent asthma with acute exacerbation J45.41 [facility] [id number] [place] [address] Mar, [facility] [address] [address] Mar, Hypothyroidism, unspecified type E03.9 [facility] [address] [address] Mar, Seasonal allergic rhinitis due to pollen J30.1 ; Moderate persistent asthma without complication J45.40 and Essential hypertension I10 [facility] [address] [address] Feb, [facility] [id number] [place] [address] Jan, Moderate persistent asthma with acute exacerbation J45.41 [facility] [id number] [place] [address] Jan, [facility] [id number] [place] [address] May, Severe persistent asthma without complication J45.50 ; Chronic nonseasonal allergic rhinitis due to other allergen J30.89 and Hypothyroidism, unspecified type E03.9 [facility] [address] [address] Apr, [facility] [id number] [place] [address] Apr, [facility] [address] [address] Apr, [facility] [id number] [place] [address] Mar, Hypothyroidism (acquired) E03.9 [facility] [id number] [place] [address] Mar, [facility] [id number] [place] [address] Mar, Chest wall pain R07.89 [facility] [id number] [place] [address] Mar, [facility] [id number] [place] [address] Dec, Moderate persistent asthma without complication J45.40 [facility] [id number] [place] [address] Nov, [facility] [id number] [place] [address] Aug, Moderate persistent asthma with acute exacerbation J45.41 and Hypothyroidism, unspecified type E03.9 [facility] [id number] [address] Aug, Moderate persistent asthma with acute exacerbation J45.41 and Hypothyroidism, unspecified type E03.9 [facility] [id number] [address] Sep, [facility] [address] [address] Sep, [facility] [address] [place] [address] Jul, [facility] [id number] [place] [address] Jul, [facility] [address] [place] [address] Jun, [facility] [address] [address] Jun, [facility] [address] [address] Jun, [facility] [address] [place] [address] Jun, [facility] [address] [place] [address] Jun, [facility] [address] [place] [address] Jun, [facility] [address] [place] [address] May, [facility] [address], [place] [address] May, [facility] [address] [place] [address] Apr, [facility] [address] [place] [address] Apr, [facility] [address] [place] [address] Apr, [facility] [id number] [address] Apr, [facility] [address] [place] [address] Feb, [facility] [id number] [address] Feb, [facility] [address] [place] [address] Feb, [facility] [id number] [address] Feb, [facility] [address] [place] [address] Jan, [facility] [address] [place] [address] Jan, [facility] [address] [place] [address] Dec, [facility] [id number] [address] Dec, [facility] [address] [place] [address] Dec, [facility] [address] [place] [address] Dec, [facility] [place] [facility] [id number] [address] Dec, [facility] [place] [facility] [id number] [address] Dec, [facility] [place] [facility] [id number] [address] Nov, [facility] [place] [facility] [id number] [address] Nov, [facility] [place] [facility] [id number] [address] Nov, [facility] [place] [facility] [address] [id number] [place] [address] Nov, [facility] [place] [facility] [address] [id number] [place] [address] October, [facility] [place] [facility] [address] [id number] [place] [address] October, [facility] [place] [facility] [address] [id number] [place] [address] October, [facility] [place] [facility] [address] [id number] [place] [address] October, [facility] [place] [facility] [address] [id number] [place] [address] Sep, [facility] [place] [facility] [address] [id number] [place] [address] Sep, [facility] [place] [facility] [address] [id number] [place] [address] Jul, [facility] [place] [facility] [address] [id number] [place] [address] Jun, [facility] [place] [facility] [address] [id number] [place] [address] Jun, [facility] [place] [facility] [address] [id number] [place] [address] Jun, [facility] [place] [facility] [address] [id number] [place] [address] Jun, [facility] [place] [facility] [address] [id number] [place] [address] Jun, [facility] [place] [facility] [address] [id number] [place] [address] May, [facility] [place] [facility] [address] [id number] [place] [address] May, [facility] [place] [facility] [address] [id number] [place] [address] May, [facility] [address] [id number] [place] [address] May, [facility] [place] [facility] [address] [id number] [place] [address] Feb, [facility] [address] [id number] [place] [address] Dec, [facility] [place] [facility] [address] [id number] [place] [address] Dec, [facility] [address] [id number] [place] [address] Dec, [facility] [place] [facility] [address] [id number] [place] [address] Dec, [facility] [address] [id number] [place] [address] Dec, [facility] [place] [facility] [address] [id number] [place] [address] Nov, [facility] [address] [id number] [place] [address] Nov, [facility] [place] [facility] [address] [id number] [place] [address] Nov, [facility] [address] [id number], [place] [address] Nov, [facility] [place] [facility] [address] [id number] [place] [address] October, [facility] [place] [facility] [address] [id number] [place] [address] October, [facility] [place] [facility] [address] [id number] [place] [address] October, [facility] [place] [facility] [address] [id number] [place] [address] Aug, [facility] [place] [facility] [address] [id number] [place] [address] Aug, [facility] [place] [facility] [address] [id number] [place] [address] Jul, [facility] [place] [facility] [address] [id number] [place] [address] Jun, [facility] [place] [facility] [address] [id number] [place] [address] Jun, [facility] [place] [facility] [address] [id number] [place] [address] May, [facility] [place] [facility] [address] [id number] [place] [address] May, [facility] [place] [facility] [address] [id number] [place] [address] May, [facility] [place] [facility] [address] [id number] [place] [address] May, [facility] [place] [facility] [address] [id number] [place] [address] May, [facility] [place] [facility] [address] [id number] [place] [address] May, [facility] [place] [facility] [address] [facility] [id number] [place] [address] May, [facility] [place] [facility] [address] [id number] [place] [address] Mar, [facility] [place] [facility] [address] [id number] [place] [address] Mar, [facility] [place] [facility] [address] [id number] [place] [address] Mar, [facility] [place] [facility] [address] [id number] [place] [address] Feb, [facility] [place] [facility] [address] [id number] [place] [address] 08 Feb, 2012 [facility] [place] [facility] [address] [id number] [place] [address] 05 Feb, 2011 [facility] [place] [facility] [address] [id number] [place] [address] Feb, [facility] [place] [facility] [address] [id number] [place] [address] Feb, [facility] [place] [facility] [address] [id number] [place] [address] Feb, [facility] [place] [facility] [address] [id number] [place] [address] Jan, [facility] [place] [facility] [address] [id number] [place] [address] Jan, [facility] [place] [facility] [address] [id number] [place] [address] Jan, [facility] [place] [facility] [address] [id number] [place] [address] Jan, [facility] [place] [facility] [address] [id number] [place] [address] Jan, [facility] [place] [facility] [address] [id number] [place] [address] Jan, [facility] [place] [facility] [address] [id number] [place] [address] Jan, [facility] [place] [facility] [address] [id number] [place] [address] Jan, [facility] [place] [facility] [address] [id number] [place] [address] Jan, [facility] [place] [facility] [address] [id number] [place] [address] Jan, [facility] [place] [facility] [address] [id number] [place] [address] Jan, [facility] [place] [facility] [address] [id number] [place] [address] Jan, [facility] [place] [facility] [address] [id number] [place] [address] Dec, [facility] [place] [facility] [address] [id number] [place] [address] Dec, [facility] [place] [facility] [address] [id number] [place] [address] Dec, [facility] [place] [facility] [address] [id number] [place] [address] Dec, [facility] [place] [facility] [address] [id number] [place] [address] Dec, [facility] [place] [facility] [address] [id number] [place] [address] Dec, [facility] [place] [facility] [address] [id number] [place] [address] Nov, [facility] [place] [facility] [address] [id number] [place] [address] Nov, [facility] [place] [facility] [address] [id number] [place] [address] Nov, [facility] [place] [facility] [address] [id number] [place] [address] Nov, [facility] [place] [facility] [address] [id number] [place] [address] Nov, [facility] [place] [facility] [address] [id number] [place] [address] October, [facility] [place] [facility] [address] [id number] [place] [address] October, [facility] [place] [facility] [address] [id number] [place] [address] October, [facility] [place] [facility] [address] [id number] [place] [address] October, [facility] [address] [place] [address] October, [facility] [address] [place] [address] October, [facility] [address] [facility] [id number], [place] [address] October, [facility] [address] [place] [address] October, [facility] [address] [facility] [id number], [place] [address] October, [facility] [address] [place] [address] October, [facility] [address] [place] [address] October, [facility] [address] [place] [address] October, [facility] [address] [place] [address] Sep, [facility] [address] [place] [address] Sep, [facility] [id number] [address] Sep, IMMUNIZATIONS No Known Immunizations SOCIAL HISTORY Never Assessed REASON FOR VISIT [facility] PLAN OF CARE VITAL SIGNS MEDICATIONS [...] x4 Hospitalization History chest pain Hospitalization History [place] [address]
--- OUTSIDE RECORDS SUMMARY | 2018-12-27 21:40 | XMS REPORT ---
Author Author Migration, Doctor Organization [facility] Address Unknown Phone Unavailable Care Team Providers Care Utility Specialist Name Role Phone Migration, Doctor Unavailable Unavailable PROBLEMS Type Condition ICD9-CM Code TQS45-ZY Code Onset Dates Condition Status SNOMED Code Problem Hypothyroidism, unspecified type E03.9 Active 05656547 Problem Moderate persistent asthma with acute exacerbation J45.41 Active 107126683227493 Problem Moderate persistent asthma without complication J45.40 Active 863947301 Problem Hypothyroidism (acquired) E03.9 Active 049617801 Problem Essential hypertension I10 Active 55789234 Problem Seasonal allergic rhinitis due to pollen J30.1 Active [id number] ALLERGIES No Information ENCOUNTERS Encounter Location Date Diagnosis [facility] [address] [address] Jun, [facility] [id number] [place] [address] Jun, [facility] [address] [address] Apr, Acute pancreatitis, unspecified complication status, unspecified pancreatitis type K85.90 ; Dysuria R30.0 ; Hypothyroidism, unspecified type E03.9 and Moderate persistent asthma with acute exacerbation J45.41 [facility] [id number] [place] [address] Mar, [facility] [id number] [place] [address] Mar, Hypothyroidism, unspecified type E03.9 [facility] [address] [address] Mar, Seasonal allergic rhinitis due to pollen J30.1 ; Moderate persistent asthma without complication J45.40 and Essential hypertension I10 [facility] [address] [address] Feb, [facility] [id number] [place] [address] Jan, Moderate persistent asthma with acute exacerbation J45.41 [facility] [id number] [place] [address] Jan, [facility] [id number] [place] [address] May, Severe persistent asthma without complication J45.50 ; Chronic nonseasonal allergic rhinitis due to other allergen J30.89 and Hypothyroidism, unspecified type E03.9 [facility] [address] [address] Apr, [facility] [id number] [place] [address] Apr, [facility] [address] [address] Apr, [facility] [id number] [place] [address] Mar, Hypothyroidism (acquired) E03.9 [facility] [id number] [place] [address] Mar, [facility] [id number] [place] [address] Mar, Chest wall pain R07.89 [facility] [id number] [place] [address] Mar, [facility] [id number] [place] [address] Dec, Moderate persistent asthma without complication J45.40 [facility] [id number] [place] [address] Nov, [facility] [id number] [place] [address] Aug, Moderate persistent asthma with acute exacerbation J45.41 and Hypothyroidism, unspecified type E03.9 [facility] [id number] [address] Aug, Moderate persistent asthma with acute exacerbation J45.41 and Hypothyroidism, unspecified type E03.9 [facility] [id number] [address] Sep, [facility] [address] [address] Sep, [facility] [address] [place] [address] Jul, [facility] [id number] [place] [address] Jul, [facility] [address] [place] [address] Jun, [facility] [id number] [address] Jun, [facility] [address] [address] Jun, [facility] [address] [address] Jun, [facility] [address] [place] [address] Jun, [facility] [id number] [address] Jun, [facility] [address] [place] [address] May, [facility] [address] [address] May, [facility] [address] [place] [address] Apr, [facility] [id number] [address] Apr, [facility] [address] [facility] [place] [address] Apr, [facility] [id number] [address] Apr, [facility] [address] [place] [address] Feb, [facility] [id number] [address] Feb, [facility] [address] [place] [address] Feb, [facility] [id number] [address] Feb, [facility] [address] [place] [address] Jan, [facility] [address] [address] Jan, [facility] [address] [place] [address] Dec, [facility] [id number] [address] Dec, [facility] [address] [place] [address] Dec, [facility] [address] [place] [address] Dec, [facility] [place] [facility] [id number] [address] Dec, [facility] [place] [facility] [id number] [address] Dec, [facility] [place] [facility] [id number] [address] Nov, [facility] [place] [facility] [id number] [address] Nov, [facility] [place] [facility] [id number] [address] Nov, [facility] [place] [facility] [address] [id number] [place] [address] Nov, [facility] [place] [facility] [address] [id number] [place] [address] October, [facility] [place] [facility] [address] [id number] [place] [address] October, [facility] [place] [facility] [address] [id number] [place] [address] October, [facility] [place] [facility] [address] [id number] [place] [address] October, [facility] [place] [facility] [address] [id number] [place] [address] Sep, [facility] [place] [facility] [address] [id number] [place] [address] Sep, [facility] [place] [facility] [address] [id number] [place] [address] Jul, [facility] [place] [facility] [address] [id number] [place] [address] Jun, [facility] [place] [facility] [address] [id number] [place] [address] Jun, [facility] [place] [facility] [address] [id number] [place] [address] Jun, [facility] [place] [facility] [address] [id number] [place] [address] Jun, [facility] [place] [facility] [address] [id number] [place] [address] Jun, [facility] [place] [facility] [address] [id number] [place] [address] May, [facility] [place] [facility] [address] [id number] [place] [address] May, [facility] [place] [facility] [address] [id number] [place] [address] May, [facility] [address] [id number] [place] [address] May, [facility] [place] [facility] [address] [id number] [place] [address] Feb, [facility] [address] [id number] [place] [address] Dec, [facility] [place] [facility] [address] [id number] [place] [address] Dec, [facility] [address] [id number] [place] [address] Dec, [facility] [place] [facility] [address] [id number] [place] [address] Dec, [facility] [address] [id number] [place] [address] Dec, [facility] [place] [facility] [address] [id number] [place] [address] Nov, [facility] [address] [id number] [place] [address] Nov, [facility] [place] [facility] [address] [id number] [place] [address] Nov, [facility] [address] [id number] [address] Nov, [facility] [place] [facility] [address] [id number] [place] [address] October, [facility] [place] [facility] [address] [id number] [place] [address] October, [facility] [place] [facility] [address] [id number] [place] [address] October, [facility] [place] [facility] [address] [id number] [place] [address] Aug, [facility] [place] [facility] [address] [id number] [place] [address] Aug, [facility] [place] [facility] [address] [id number] [place] [address] Jul, [facility] [place] [facility] [address] [id number] [place] [address] Jun, [facility] [place] [facility] [address] [id number] [place] [address] Jun, [facility] [place] [facility] [address] [id number] [place] [address] May, [facility] [place] [facility] [address] [id number] [place] [address] May, [facility] [place] [facility] [address] [id number] [place] [address] May, [facility] [place] [facility] [address] [id number] [place] [address] May, [facility] [place] [facility] [address] [id number] [place] [address] May, [facility] [place] [facility] [address] [id number] [place] [address] May, [facility] [place] [facility] [address] [facility] [id number] [place] [address] May, [facility] [place] [facility] [address] [id number] [place] [address] Mar, [facility] [place] [facility] [address] [id number] [place] [address] Mar, [facility] [place] [facility] [address] [id number] [place] [address] Mar, [facility] [place] [facility] [address] [id number] [place] [address] Feb, [facility] [place] [facility] [address] [id number] [place] [address] 08 Feb, 2012 [facility] [place] [facility] [address] [id number] [place] [address] 05 Feb, 2011 [facility] [place] [facility] [address] [id number] [place] [address] Feb, [facility] [place] [facility] [address] [id number] [place] [address] Feb, [facility] [place] [facility] [address] [id number] [place] [address] Feb, [facility] [place] [facility] [address] [id number] [place] [address] Jan, [facility] [place] [facility] [address] [id number] [place] [address] Jan, [facility] [place] [facility] [address] [id number] [place] [address] Jan, [facility] [place] [facility] [address] [id number] [place] [address] Jan, [facility] [place] [facility] [address] [id number] [place] [address] Jan, [facility] [place] [facility] [address] [id number] [place] [address] Jan, [facility] [place] [facility] [address] [id number] [place] [address] Jan, [facility] [place] [facility] [address] [id number] [place] [address] Jan, [facility] [place] [facility] [address] [id number] [place] [address] Jan, [facility] [place] [facility] [address] [id number] [place] [address] Jan, [facility] [place] [facility] [address] [id number] [place] [address] Jan, [facility] [place] [facility] [address] [id number] [place] [address] Jan, [facility] [place] [facility] [address] [id number] [place] [address] Dec, [facility] [place] [facility] [address] [id number] [place] [address] Dec, [facility] [place] [facility] [address] [id number] [place] [address] Dec, [facility] [place] [facility] [address] [id number] [place] [address] Dec, [facility] [place] [facility] [address] [id number] [place] [address] Dec, [facility] [place] [facility] [address] [id number] [place] [address] Dec, [facility] [place] [facility] [address] [id number] [place] [address] Nov, [facility] [place] [facility] [address] [id number] [place] [address] Nov, [facility] [place] [facility] [address] [id number] [place] [address] Nov, [facility] [place] [facility] [address] [id number] [place] [address] Nov, [facility] [place] [facility] [address] [id number] [place] [address] Nov, [facility] [place] [facility] [address] [id number] [place] [address] October, [facility] [place] [facility] [address] [id number] [place] [address] October, [facility] [place] [facility] [address] [id number] [place] [address] October, [facility] [place] [facility] [address] [id number] [place] [address] October, [facility] [address] [address] October, [facility] [address] [address] October, [facility] [address] [facility] [id number] [address] October, [facility] [address] [address] October, [facility] [address] [facility] [id number] [address] October, [facility] [address] [address] October, [facility] [address] [address] October, [facility] [address] [address] October, [facility] [address] [address] Sep, [facility] [address] [address] Sep, [facility] [id number] [address] Sep, IMMUNIZATIONS No Known Immunizations SOCIAL HISTORY Never Assessed REASON FOR VISIT [facility] [place] PLAN OF CARE VITAL [...] x4 Hospitalization History chest pain Hospitalization History [place] [address]
--- OUTSIDE RECORDS SUMMARY | 2018-12-27 21:40 | XMS REPORT ---
Author Author Migration, Doctor Organization [facility] Address Unknown Phone Unavailable Care Team Providers Care Photoengraving Apprentice Name Role Phone Migration, Doctor Unavailable Unavailable PROBLEMS Type Condition ICD9-CM Code XEA54-LY Code Onset Dates Condition Status SNOMED Code Problem Hypothyroidism, unspecified type E03.9 Active 92032319 Problem Moderate persistent asthma with acute exacerbation J45.41 Active 017906215299173 Problem Moderate persistent asthma without complication J45.40 Active 372376190 Problem Hypothyroidism (acquired) E03.9 Active 126393461 Problem Essential hypertension I10 Active 99801186 Problem Seasonal allergic rhinitis due to pollen J30.1 Active [id number] ALLERGIES No Information ENCOUNTERS Encounter Location Date Diagnosis [facility] [place] [address] [address] Jun, [facility] [id number] [place] [address] Jun, [facility] [place] [address] [address] Apr, Acute pancreatitis, unspecified complication status, unspecified pancreatitis type K85.90 ; Dysuria R30.0 ; Hypothyroidism, unspecified type E03.9 and Moderate persistent asthma with acute exacerbation J45.41 [facility] [place] [id number] [place] [address] Mar, [facility] [place] [id number] [place] [address] Mar, Hypothyroidism, unspecified type E03.9 [facility] [place] [address] [address] Mar, Seasonal allergic rhinitis due to pollen J30.1 ; Moderate persistent asthma without complication J45.40 and Essential hypertension I10 [facility] [place] [address] [address] Feb, [facility] [place] [id number] [place] [address] Jan, Moderate persistent asthma with acute exacerbation J45.41 [facility] [place] [id number] [place] [address] Jan, [facility] [place] [id number] [place] [address] May, Severe persistent asthma without complication J45.50 ; Chronic nonseasonal allergic rhinitis due to other allergen J30.89 and Hypothyroidism, unspecified type E03.9 [facility] [place] [address] [address] Apr, [facility] [place] [id number] [place] [address] Apr, [facility] [place] [address] [address] Apr, [facility] [place] [id number] [place] [address] Mar, Hypothyroidism (acquired) E03.9 [facility] [place] [id number] [place] [address] Mar, [facility] [place] [id number] [place] [address] Mar, Chest wall pain R07.89 [facility] [place] [id number] [place] [address] Mar, [facility] [place] [id number] [place] [address] Dec, Moderate persistent asthma without complication J45.40 [facility] [place] [id number] [place] [address] Nov, [facility] [place] [id number] [place] [address] Aug, Moderate persistent asthma with acute exacerbation J45.41 and Hypothyroidism, unspecified type E03.9 [facility] [place] [id number] [address] Aug, Moderate persistent asthma with acute exacerbation J45.41 and Hypothyroidism, unspecified type E03.9 [facility] [place] [id number] [address] Sep, [facility] [place] [address] [place] [address] Sep, [facility] [address] [place] [address] Jul, [facility] [place] [id number] [place] [address] Jul, [facility] [address] [place] [address] Jun, [facility] [place] [address], [place] [address] Jun, [facility] [place] [address], [place] [address] Jun, [facility] [place] [address] [place] [address] Jun, [facility] [address] [place] [address] Jun, [facility] [place] [address] [place] [address] Jun, [facility] [address] [place] [address] May, [facility] [place] [address] [place] [address] May, [facility] [address] [place] [address] Apr, [facility] [place] [address] [place] [address] Apr, [facility] [address] [place] [address] Apr, [facility] [id number], [place] [address] Apr, [facility] [address] [place] [address] Feb, [facility] [id number] [address] Feb, [facility] [address] [place] [address] Feb, [facility] [id number] [address] Feb, [facility] [address] [place] [address] Jan, [facility] [address] [place] [address] Jan, [facility] [address] [place] [address] Dec, [facility] [id number], [place] [address] Dec, [facility] [address] [place] [address] Dec, [facility] [address] [place] [address] Dec, [facility] [place] [facility] [id number] [address] Dec, [facility] [place] [facility] [id number], [place] [address] Dec, [facility] [place] [facility] [id number] [address] Nov, [facility] [place] [facility] [id number] [address] Nov, [facility] [place] [facility] [id number] [address] Nov, [facility] [place] [facility] [address] [id number] [place] [address] Nov, [facility] [place] [facility] [address] [id number] [place] [address] October, [facility] [place] [facility] [address] [id number] [place] [address] October, [facility] [place] [facility] [address] [id number] [place] [address] October, [facility] [place] [facility] [address] [id number] [place] [address] October, [facility] [place] [facility] [address] [id number] [place] [address] Sep, [facility] [place] [facility] [address] [id number] [place] [address] Sep, [facility] [place] [facility] [address] [id number] [place] [address] Jul, [facility] [place] [facility] [address] [id number] [place] [address] Jun, [facility] [place] [facility] [address] [id number] [place] [address] Jun, [facility] [place] [facility] [address] [id number] [place] [address] Jun, [facility] [place] [facility] [address] [id number] [place] [address] Jun, [facility] [place] [facility] [address] [id number] [place] [address] Jun, [facility] [place] [facility] [address] [id number] [place] [address] May, [facility] [place] [facility] [address] [id number] [place] [address] May, [facility] [place] [facility] [address] [id number] [place] [address] May, [facility] [address] [id number] [place] [address] May, [facility] [place] [facility] [address] [id number] [place] [address] Feb, [facility] [address] [id number] [place] [address] Dec, [facility] [place] [facility] [address] [id number] [place] [address] Dec, [facility] [address] [id number] [place] [address] Dec, [facility] [place] [facility] [address] [id number] [place] [address] Dec, [facility] [address] [id number] [place] [address] Dec, [facility] [place] [facility] [address] [id number] [place] [address] Nov, [facility] [address] [id number] [place] [address] Nov, [facility] [place] [facility] [address] [id number] [place] [address] Nov, [facility] [address] [id number] [address] Nov, [facility] [place] [facility] [address] [id number] [place] [address] October, [facility] [place] [facility] [address] [id number] [place] [address] October, [facility] [place] [facility] [address] [id number] [place] [address] October, [facility] [place] [facility] [address] [id number] [place] [address] Aug, [facility] [place] [facility] [address] [id number] [place] [address] Aug, [facility] [place] [facility] [address] [id number] [place] [address] Jul, [facility] [place] [facility] [address] [id number] [place] [address] Jun, [facility] [place] [facility] [address] [id number] [place] [address] Jun, [facility] [place] [facility] [address] [id number] [place] [address] May, [facility] [place] [facility] [address] [id number] [place] [address] May, [facility] [place] [facility] [address] [id number] [place] [address] May, [facility] [place] [facility] [address] [id number] [place] [address] May, [facility] [place] [facility] [address] [id number] [place] [address] May, [facility] [place] [facility] [address] [id number] [place] [address] May, [facility] [place] [facility] [address] [facility] [id number] [place] [address] May, [facility] [place] [facility] [address] [id number] [place] [address] Mar, [facility] [place] [facility] [address] [id number] [place] [address] Mar, [facility] [place] [facility] [address] [id number] [place] [address] Mar, [facility] [place] [facility] [address] [id number] [place] [address] Feb, [facility] [place] [facility] [address] [id number] [place] [address] 08 Feb, 2012 [facility] [place] [facility] [address] [id number] [place] [address] 05 Feb, 2011 [facility] [place] [facility] [address] [id number] [place] [address] Feb, [facility] [place] [facility] [address] [id number] [place] [address] Feb, [facility] [place] [facility] [address] [id number] [place] [address] Feb, [facility] [place] [facility] [address] [id number] [place] [address] Jan, [facility] [place] [facility] [address] [id number] [place] [address] Jan, [facility] [place] [facility] [address] [id number] [place] [address] Jan, [facility] [place] [facility] [address] [id number] [place] [address] Jan, [facility] [place] [facility] [address] [id number] [place] [address] Jan, [facility] [place] [facility] [address] [id number] [place] [address] Jan, [facility] [place] [facility] [address] [id number] [place] [address] Jan, [facility] [place] [facility] [address] [id number] [place] [address] Jan, [facility] [place] [facility] [address] [id number] [place] [address] Jan, [facility] [place] [facility] [address] [id number] [place] [address] Jan, [facility] [place] [facility] [address] [id number] [place] [address] Jan, [facility] [place] [facility] [address] [id number] [place] [address] Jan, [facility] [place] [facility] [address] [id number] [place] [address] Dec, [facility] [place] [facility] [address] [id number] [place] [address] Dec, [facility] [place] [facility] [address] [id number] [place] [address] Dec, [facility] [place] [facility] [address] [id number] [place] [address] Dec, [facility] [place] [facility] [address] [id number] [place] [address] Dec, [facility] [place] [facility] [address] [id number] [place] [address] Dec, [facility] [place] [facility] [address] [id number] [place] [address] Nov, [facility] [place] [facility] [address] [id number] [place] [address] Nov, [facility] [place] [facility] [address] [id number] [place] [address] Nov, [facility] [place] [facility] [address] [id number] [place] [address] Nov, [facility] [place] [facility] [address] [id number] [place] [address] Nov, [facility] [place] [facility] [address] [id number] [place] [address] October, [facility] [place] [facility] [address] [id number] [place] [address] October, [facility] [place] [facility] [address] [id number] [place] [address] October, [facility] [place] [facility] [address] [id number] [place] [address] October, [facility] [place] [address] [place] [address] October, [facility] [place] [address], [place] [address] October, [facility] [place] [address] [facility] [id number], [place] [address] October, [facility] [place] [address], [place] [address] October, [facility] [place] [address] [facility] [id number], [place] [address] October, [facility] [place] [address], [place] [address] October, [facility] [place] [address], [place] [address] October, [facility] [place] [address] [place] [address] October, [facility] [place] [address] [place] [address] Sep, [facility] [place] [address] [place] [address] Sep, [facility] [place] [id number], [place] [address] Sep, IMMUNIZATIONS No Known Immunizations SOCIAL HISTORY Never Assessed REASON FOR VISIT [facility] PLAN OF CARE VITAL SIGNS MEDICATIONS Unknown [...] x4 Hospitalization History chest pain Hospitalization History [place] [address]
--- OUTSIDE RECORDS SUMMARY | 2018-12-27 21:40 | XMS REPORT ---
Author Author Migration, Doctor Organization [facility] Address Unknown Phone Unavailable Care Team Providers Care Form Carpenter Name Role Phone Migration, Doctor Unavailable Unavailable PROBLEMS Type Condition ICD9-CM Code [id number] Code Onset Dates Condition Status SNOMED Code Problem Hypothyroidism, unspecified type E03.9 Active 84336285 Problem Moderate persistent asthma with acute exacerbation J45.41 Active 100724042511872 Problem Moderate persistent asthma without complication J45.40 Active 940855669 Problem Hypothyroidism (acquired) E03.9 Active 435116932 Problem Essential hypertension I10 Active 35410309 Problem Seasonal allergic rhinitis due to pollen J30.1 Active [id number] ALLERGIES No Information ENCOUNTERS Encounter Location Date Diagnosis [facility] [address] [address] Jun, [facility] [id number] [place] [address] Jun, [facility] [address] [address] Apr, Acute pancreatitis, unspecified complication status, unspecified pancreatitis type K85.90 ; Dysuria R30.0 ; Hypothyroidism, unspecified type E03.9 and Moderate persistent asthma with acute exacerbation J45.41 [facility] [id number] [place] [address] Mar, [facility] [id number] [place] [address] Mar, Hypothyroidism, unspecified type E03.9 [facility] [address] [address] Mar, Seasonal allergic rhinitis due to pollen J30.1 ; Moderate persistent asthma without complication J45.40 and Essential hypertension I10 [facility] [address] [address] Feb, [facility] [id number] [place] [address] Jan, Moderate persistent asthma with acute exacerbation J45.41 [facility] [id number] [place] [address] Jan, [facility] [id number] [place] [address] May, Severe persistent asthma without complication J45.50 ; Chronic nonseasonal allergic rhinitis due to other allergen J30.89 and Hypothyroidism, unspecified type E03.9 [facility] [address] [address] Apr, [facility] [id number] [place] [address] Apr, [facility] [address] [address] Apr, [facility] [id number] [place] [address] Mar, Hypothyroidism (acquired) E03.9 [facility] [id number] [place] [address] Mar, [facility] [id number] [place] [address] Mar, Chest wall pain R07.89 [facility] [id number] [place] [address] Mar, [facility] [id number] [place] [address] Dec, Moderate persistent asthma without complication J45.40 [facility] [id number] [place] [address] Nov, [facility] [id number] [place] [address] Aug, Moderate persistent asthma with acute exacerbation J45.41 and Hypothyroidism, unspecified type E03.9 [facility] [id number] [address] Aug, Moderate persistent asthma with acute exacerbation J45.41 and Hypothyroidism, unspecified type E03.9 [facility] [id number] [address] Sep, [facility] [address] [address] Sep, [facility] [address] [place] [address] Jul, [facility] [id number] [place] [address] Jul, [facility] [address] [place] [address] Jun, [facility] [address] [address] Jun, [facility] [address] [address] Jun, [facility] [address] [address] Jun, [facility] [address] [place] [address] Jun, [facility] [address] [address] Jun, [facility] [address] [place] [address] May, [facility] [address] [address] May, [facility] [address] [place] [address] Apr, [facility] [address] [address] Apr, [facility] [address] [facility] [place] [address] Apr, [facility] [id number] [address] Apr, [facility] [address] [place] [address] Feb, [facility] [id number] [address] Feb, [facility] [address] [place] [address] Feb, [facility] [id number] [address] Feb, [facility] [address] [place] [address] Jan, [facility] [address] [address] Jan, [facility] [address] [place] [address] Dec, [facility] [id number] [address] Dec, [facility] [address] [place] [address] Dec, [facility] [address] [place] [address] Dec, [facility] [place] [facility] [id number], [place] [address] Dec, [facility] [place] [facility] [id number] [address] Dec, [facility] [place] [facility] [id number] [address] Nov, [facility] [place] [facility] [id number], [place] [address] Nov, [facility] [place] [facility] [id number] [address] Nov, [facility] [place] [facility] [address] [id number] [place] [address] Nov, [facility] [place] [facility] [address] [id number] [place] [address] October, [facility] [place] [facility] [address] [id number] [place] [address] October, [facility] [place] [facility] [address] [id number] [place] [address] October, [facility] [place] [facility] [address] [id number] [place] [address] October, [facility] [place] [facility] [address] [id number] [place] [address] Sep, [facility] [place] [facility] [address] [id number] [place] [address] Sep, [facility] [place] [facility] [address] [id number] [place] [address] Jul, [facility] [place] [facility] [address] [id number] [place] [address] Jun, [facility] [place] [facility] [address] [id number] [place] [address] Jun, [facility] [place] [facility] [address] [id number] [place] [address] Jun, [facility] [place] [facility] [address] [id number] [place] [address] Jun, [facility] [place] [facility] [address] [id number] [place] [address] Jun, [facility] [place] [facility] [address] [id number] [place] [address] May, [facility] [place] [facility] [address] [id number] [place] [address] May, [facility] [place] [facility] [address] [id number] [place] [address] May, [facility] [address] [id number] [place] [address] May, [facility] [place] [facility] [address] [id number] [place] [address] Feb, [facility] [address] [id number] [place] [address] Dec, [facility] [place] [facility] [address] [id number] [place] [address] Dec, [facility] [address] [id number] [place] [address] Dec, [facility] [place] [facility] [address] [id number] [place] [address] Dec, [facility] [address] [id number] [place] [address] Dec, [facility] [place] [facility] [address] [id number] [place] [address] Nov, [facility] [address] [id number] [place] [address] Nov, [facility] [place] [facility] [address] [id number] [place] [address] Nov, [facility] [address] [id number] [address] Nov, [facility] [place] [facility] [address] [id number] [place] [address] October, [facility] [place] [facility] [address] [id number] [place] [address] October, [facility] [place] [facility] [address] [id number] [place] [address] October, [facility] [place] [facility] [address] [id number] [place] [address] Aug, [facility] [place] [facility] [address] [id number] [place] [address] Aug, [facility] [place] [facility] [address] [id number] [place] [address] Jul, [facility] [place] [facility] [address] [id number] [place] [address] Jun, [facility] [place] [facility] [address] [id number] [place] [address] Jun, [facility] [place] [facility] [address] [id number] [place] [address] May, [facility] [place] [facility] [address] [id number] [place] [address] May, [facility] [place] [facility] [address] [id number] [place] [address] May, [facility] [place] [facility] [address] [id number] [place] [address] May, [facility] [place] [facility] [address] [id number] [place] [address] May, [facility] [place] [facility] [address] [id number] [place] [address] May, [facility] [place] [facility] [address] [facility] [id number] [place] [address] May, [facility] [place] [facility] [address] [id number] [place] [address] Mar, [facility] [place] [facility] [address] [id number] [place] [address] Mar, [facility] [place] [facility] [address] [id number] [place] [address] Mar, [facility] [place] [facility] [address] [id number] [place] [address] Feb, [facility] [place] [facility] [address] [id number] [place] [address] 08 Feb, 2012 [facility] [place] [facility] [address] [id number] [place] [address] 05 Feb, 2011 [facility] [place] [facility] [address] [id number] [place] [address] Feb, [facility] [place] [facility] [address] [id number] [place] [address] Feb, [facility] [place] [facility] [address] [id number] [place] [address] Feb, [facility] [place] [facility] [address] [id number] [place] [address] Jan, [facility] [place] [facility] [address] [id number] [place] [address] Jan, [facility] [place] [facility] [address] [id number] [place] [address] Jan, [facility] [place] [facility] [address] [id number] [place] [address] Jan, [facility] [place] [facility] [address] [id number] [place] [address] Jan, [facility] [place] [facility] [address] [id number] [place] [address] Jan, [facility] [place] [facility] [address] [id number] [place] [address] Jan, [facility] [place] [facility] [address] [id number] [place] [address] Jan, [facility] [place] [facility] [address] [id number] [place] [address] Jan, [facility] [place] [facility] [address] [id number] [place] [address] Jan, [facility] [place] [facility] [address] [id number] [place] [address] Jan, [facility] [place] [facility] [address] [id number] [place] [address] Jan, [facility] [place] [facility] [address] [id number] [place] [address] Dec, [facility] [place] [facility] [address] [id number] [place] [address] Dec, [facility] [place] [facility] [address] [id number] [place] [address] Dec, [facility] [place] [facility] [address] [id number] [place] [address] Dec, [facility] [place] [facility] [address] [id number] [place] [address] Dec, [facility] [place] [facility] [address] [id number] [place] [address] Dec, [facility] [place] [facility] [address] [id number] [place] [address] Nov, [facility] [place] [facility] [address] [id number] [place] [address] Nov, [facility] [place] [facility] [address] [id number] [place] [address] Nov, [facility] [place] [facility] [address] [id number] [place] [address] Nov, [facility] [place] [facility] [address] [id number] [place] [address] Nov, [facility] [place] [facility] [address] [id number] [place] [address] October, [facility] [place] [facility] [address] [id number] [place] [address] October, [facility] [place] [facility] [address] [id number] [place] [address] October, [facility] [place] [facility] [address] [id number] [place] [address] October, [facility] [address] [address] October, [facility] [address], [place] [address] October, [facility] [address] [facility] [id number] [address] October, [facility] [address], [place] [address] October, [facility] [address] [facility] [id number] [address] October, [facility] [address], [place] [address] October, [facility] [address], [place] [address] October, [facility] [address], [place] [address] October, [facility] [address], [place] [address] Sep, [facility] [address] [address] Sep, [facility] [id number] [address] Sep, IMMUNIZATIONS No Known Immunizations SOCIAL HISTORY Never Assessed REASON FOR VISIT [facility] PLAN OF CARE VITAL SIGNS MEDICATIONS Unknown [...] History chest pain Hospitalization History [place] [address]
--- OUTSIDE RECORDS SUMMARY | 2018-12-27 21:41 | XMS REPORT ---
Author Author Migration, Doctor Organization [facility] Address Unknown Phone Unavailable Care Team Providers Care Ux Developer Designer Name Role Phone Migration, Doctor Unavailable Unavailable PROBLEMS Type Condition ICD9-CM Code QMY77-RG Code Onset Dates Condition Status SNOMED Code Problem Hypothyroidism, unspecified type E03.9 Active 94786318 Problem Moderate persistent asthma with acute exacerbation J45.41 Active 109668520693753 Problem Moderate persistent asthma without complication J45.40 Active 537553840 Problem Hypothyroidism (acquired) E03.9 Active 446730651 Problem Essential hypertension I10 Active 34623681 Problem Seasonal allergic rhinitis due to pollen J30.1 Active [id number] ALLERGIES No Information ENCOUNTERS Encounter Location Date Diagnosis [facility] [address] [address] Jun, [facility] [id number] [place] [address] Jun, [facility] [address] [address] Apr, Acute pancreatitis, unspecified complication status, unspecified pancreatitis type K85.90 ; Dysuria R30.0 ; Hypothyroidism, unspecified type E03.9 and Moderate persistent asthma with acute exacerbation J45.41 [facility] [id number] [place] [address] Mar, [facility] [id number] [place] [address] Mar, Hypothyroidism, unspecified type E03.9 [facility] [address] [address] Mar, Seasonal allergic rhinitis due to pollen J30.1 ; Moderate persistent asthma without complication J45.40 and Essential hypertension I10 [facility] [address] [address] Feb, [facility] [id number] [place] [address] Jan, Moderate persistent asthma with acute exacerbation J45.41 [facility] [id number] [place] [address] Jan, [facility] [id number] [place] [address] May, Severe persistent asthma without complication J45.50 ; Chronic nonseasonal allergic rhinitis due to other allergen J30.89 and Hypothyroidism, unspecified type E03.9 [facility] [address] [address] Apr, [facility] [id number] [place] [address] Apr, [facility] [address] [address] Apr, [facility] [id number] [place] [address] Mar, Hypothyroidism (acquired) E03.9 [facility] [id number] [place] [address] Mar, [facility] [id number] [place] [address] Mar, Chest wall pain R07.89 [facility] [id number] [place] [address] Mar, [facility] [id number] [place] [address] Dec, Moderate persistent asthma without complication J45.40 [facility] [id number] [place] [address] Nov, [facility] [id number] [place] [address] Aug, Moderate persistent asthma with acute exacerbation J45.41 and Hypothyroidism, unspecified type E03.9 [facility] [id number] [address] Aug, Moderate persistent asthma with acute exacerbation J45.41 and Hypothyroidism, unspecified type E03.9 [facility] [address] [id number] [address] Sep, [facility] [address] [address] Sep, [facility] [address] [place] [address] Jul, [facility] [id number] [place] [address] Jul, [facility] [address] [place] [address] Jun, [facility] [address] [address] Jun, [facility] [address] [address] Jun, [facility] [address] [address] Jun, [facility] [address] [place] [address] Jun, [facility] [address] [address] Jun, [facility] [address] [place] [address] May, [facility] [address] [address] May, [facility] [address] [place] [address] Apr, [facility] [address] [address] Apr, [facility] [address] [facility] [place] [address] Apr, [facility] [id number] [address] Apr, [facility] [address] [place] [address] Feb, [facility] [id number] [address] Feb, [facility] [address] [place] [address] Feb, [facility] [id number] [address] Feb, [facility] [address] [place] [address] Jan, [facility] [address] [address] Jan, [facility] [address] [place] [address] Dec, [facility] [id number] [address] Dec, [facility] [address] [place] [address] Dec, [facility] [address] [place] [address] Dec, [facility] [place] [facility] [id number] [address] Dec, [facility] [place] [facility] [id number] [address] Dec, [facility] [place] [facility] [id number] [address] Nov, [facility] [place] [facility] [id number] [address] Nov, [facility] [place] [facility] [id number] [address] Nov, [facility] [place] [facility] [address] [id number] [place] [address] Nov, [facility] [place] [facility] [address] [id number] [place] [address] October, [facility] [place] [facility] [address] [id number] [place] [address] October, [facility] [place] [facility] [address] [id number] [place] [address] October, [facility] [place] [facility] [address] [id number] [place] [address] October, [facility] [place] [facility] [address] [id number] [place] [address] Sep, [facility] [place] [facility] [address] [id number] [place] [address] Sep, [facility] [place] [facility] [address] [id number] [place] [address] Jul, [facility] [place] [facility] [address] [id number] [place] [address] Jun, [facility] [place] [facility] [address] [id number] [place] [address] Jun, [facility] [place] [facility] [address] [id number] [place] [address] Jun, [facility] [place] [facility] [address] [id number] [place] [address] Jun, [facility] [place] [facility] [address] [id number] [place] [address] Jun, [facility] [place] [facility] [address] [id number] [place] [address] May, [facility] [place] [facility] [address] [id number] [place] [address] May, [facility] [place] [facility] [address] [id number] [place] [address] May, [facility] [address] [id number] [place] [address] May, [facility] [place] [facility] [address] [id number] [place] [address] Feb, [facility] [address] [id number] [place] [address] Dec, [facility] [place] [facility] [address] [id number] [place] [address] Dec, [facility] [address] [id number] [place] [address] Dec, [facility] [place] [facility] [address] [id number] [place] [address] Dec, [facility] [address] [id number] [place] [address] Dec, [facility] [place] [facility] [address] [id number] [place] [address] Nov, [facility] [address] [id number] [place] [address] Nov, [facility] [place] [facility] [address] [id number] [place] [address] Nov, [facility] [address] [id number] [address] Nov, [facility] [place] [facility] [address] [id number] [place] [address] October, [facility] [place] [facility] [address] [id number] [place] [address] October, [facility] [place] [facility] [address] [id number] [place] [address] October, [facility] [place] [facility] [address] [id number] [place] [address] Aug, [facility] [place] [facility] [address] [id number] [place] [address] Aug, [facility] [place] [facility] [address] [id number] [place] [address] Jul, [facility] [place] [facility] [address] [id number] [place] [address] Jun, [facility] [place] [facility] [address] [id number] [place] [address] Jun, [facility] [place] [facility] [address] [id number] [place] [address] May, [facility] [place] [facility] [address] [id number] [place] [address] May, [facility] [place] [facility] [address] [id number] [place] [address] May, [facility] [place] [facility] [address] [id number] [place] [address] May, [facility] [place] [facility] [address] [id number] [place] [address] May, [facility] [place] [facility] [address] [id number] [place] [address] May, [facility] [place] [facility] [address] [facility] [id number] [place] [address] May, [facility] [place] [facility] [address] [id number] [place] [address] Mar, [facility] [place] [facility] [address] [id number] [place] [address] Mar, [facility] [place] [facility] [address] [id number] [place] [address] Mar, [facility] [place] [facility] [address] [id number] [place] [address] Feb, [facility] [place] [facility] [address] [id number] [place] [address] 08 Feb, 2012 [facility] [place] [facility] [address] [id number] [place] [address] 05 Feb, 2011 [facility] [place] [facility] [address] [id number] [place] [address] Feb, [facility] [place] [facility] [address] [id number] [place] [address] Feb, [facility] [place] [facility] [address] [id number] [place] [address] Feb, [facility] [place] [facility] [address] [id number] [place] [address] Jan, [facility] [place] [facility] [address] [id number] [place] [address] Jan, [facility] [place] [facility] [address] [id number] [place] [address] Jan, [facility] [place] [facility] [address] [id number] [place] [address] Jan, [facility] [place] [facility] [address] [id number] [place] [address] Jan, [facility] [place] [facility] [address] [id number] [place] [address] Jan, [facility] [place] [facility] [address] [id number] [place] [address] Jan, [facility] [place] [facility] [address] [id number] [place] [address] Jan, [facility] [place] [facility] [address] [id number] [place] [address] Jan, [facility] [place] [facility] [address] [id number] [place] [address] Jan, [facility] [place] [facility] [address] [id number] [place] [address] Jan, [facility] [place] [facility] [address] [id number] [place] [address] Jan, [facility] [place] [facility] [address] [id number] [place] [address] Dec, [facility] [place] [facility] [address] [id number] [place] [address] Dec, [facility] [place] [facility] [address] [id number] [place] [address] Dec, [facility] [place] [facility] [address] [id number] [place] [address] Dec, [facility] [place] [facility] [address] [id number] [place] [address] Dec, [facility] [place] [facility] [address] [id number] [place] [address] Dec, [facility] [place] [facility] [address] [id number] [place] [address] Nov, [facility] [place] [facility] [address] [id number] [place] [address] Nov, [facility] [place] [facility] [address] [id number] [place] [address] Nov, [facility] [place] [facility] [address] [id number] [place] [address] Nov, [facility] [place] [facility] [address] [id number] [place] [address] Nov, [facility] [place] [facility] [address] [id number] [place] [address] October, [facility] [place] [facility] [address] [id number] [place] [address] October, [facility] [place] [facility] [address] [id number] [place] [address] October, [facility] [place] [facility] [address] [id number] [place] [address] October, [facility] [address] [place] [address] October, [facility] [address], [place] [address] October, [facility] [address] [facility] [id number] [address] October, [facility] [address] [place] [address] October, [facility] [address] [facility] [id number] [address] October, [facility] [address], [place] [address] October, [facility] [address], [place] [address] October, [facility] [address], [place] [address] October, [facility] [address] [address] Sep, [facility] [address] [address] Sep, [facility] [id number] [address] Sep, IMMUNIZATIONS No Known Immunizations SOCIAL HISTORY Never Assessed REASON FOR [place] [facility] [place] VITAL SIGNS MEDICATIONS [...] x4 Hospitalization History chest pain Hospitalization History [place] [address]
--- OUTSIDE RECORDS SUMMARY | 2018-12-27 21:41 | XMS REPORT ---
Author Author Migration, Doctor Organization [facility] Address Unknown Phone Unavailable Care Team Providers Care Space Control Agent Name Role Phone Migration, Doctor Unavailable Unavailable PROBLEMS Type Condition ICD9-CM Code EVG35-SM Code Onset Dates Condition Status SNOMED Code Problem Hypothyroidism, unspecified type E03.9 Active 15364312 Problem Moderate persistent asthma with acute exacerbation J45.41 Active 094888425951693 Problem Moderate persistent asthma without complication J45.40 Active 537195239 Problem Hypothyroidism (acquired) E03.9 Active 895424246 Problem Essential hypertension I10 Active 42668704 Problem Seasonal allergic rhinitis due to pollen J30.1 Active [id number] ALLERGIES No Information ENCOUNTERS Encounter Location Date Diagnosis [facility] [address] [address] Jun, [facility] [id number] [place] [address] Jun, [facility] [address] [address] Apr, Acute pancreatitis, unspecified complication status, unspecified pancreatitis type K85.90 ; Dysuria R30.0 ; Hypothyroidism, unspecified type E03.9 and Moderate persistent asthma with acute exacerbation J45.41 [facility] [id number] [place] [address] Mar, [facility] [id number] [place] [address] Mar, Hypothyroidism, unspecified type E03.9 [facility] [address] [address] Mar, Seasonal allergic rhinitis due to pollen J30.1 ; Moderate persistent asthma without complication J45.40 and Essential hypertension I10 [facility] [address] [address] Feb, [facility] [id number] [place] [address] Jan, Moderate persistent asthma with acute exacerbation J45.41 [facility] [id number] [place] [address] Jan, [facility] [id number] [place] [address] May, Severe persistent asthma without complication J45.50 ; Chronic nonseasonal allergic rhinitis due to other allergen J30.89 and Hypothyroidism, unspecified type E03.9 [facility] [address] [address] Apr, [facility] [id number] [place] [address] Apr, [facility] [address] [address] Apr, [facility] [id number] [place] [address] Mar, Hypothyroidism (acquired) E03.9 [facility] [id number] [place] [address] Mar, [facility] [id number] [place] [address] Mar, Chest wall pain R07.89 [facility] [id number] [place] [address] Mar, [facility] [id number] [place] [address] Dec, Moderate persistent asthma without complication J45.40 [facility] [id number] [place] [address] Nov, [facility] [id number] [place] [address] Aug, Moderate persistent asthma with acute exacerbation J45.41 and Hypothyroidism, unspecified type E03.9 [facility] [id number] [address] Aug, Moderate persistent asthma with acute exacerbation J45.41 and Hypothyroidism, unspecified type E03.9 [facility] [id number] [address] Sep, [facility] [address] [address] Sep, [facility] [address] [place] [address] Jul, [facility] [id number] [place] [address] Jul, [facility] [address] [place] [address] Jun, [facility] [address] [address] Jun, [facility] [address] [address] Jun, [facility] [address] [address] Jun, [facility] [address] [place] [address] Jun, [facility] [address] [address] Jun, [facility] [address] [place] [address] May, [facility] [address] [address] May, [facility] [address] [place] [address] Apr, [facility] [address] [address] Apr, [facility] [address] [facility] [place] [address] Apr, [facility] [id number] [address] Apr, [facility] [address] [place] [address] Feb, [facility] [id number] [address] Feb, [facility] [address] [place] [address] Feb, [facility] [id number] [address] Feb, [facility] [address] [place] [address] Jan, [facility] [address] [address] Jan, [facility] [address] [place] [address] Dec, [facility] [id number] [address] Dec, [facility] [address] [place] [address] Dec, [facility] [address] [place] [address] Dec, [facility] [place] [facility] [id number] [address] Dec, [facility] [place] [facility] [id number] [address] Dec, [facility] [place] [facility] [id number] [address] Nov, [facility] [place] [facility] [id number] [address] Nov, [facility] [place] [facility] [id number] [address] Nov, [facility] [place] [facility] [address] [id number] [place] [address] Nov, [facility] [place] [facility] [address] [id number] [place] [address] October, [facility] [place] [facility] [address] [id number] [place] [address] October, [facility] [place] [facility] [address] [id number] [place] [address] October, [facility] [place] [facility] [address] [id number] [place] [address] October, [facility] [place] [facility] [address] [id number] [place] [address] Sep, [facility] [place] [facility] [address] [id number] [place] [address] Sep, [facility] [place] [facility] [address] [id number] [place] [address] Jul, [facility] [place] [facility] [address] [id number] [place] [address] Jun, [facility] [place] [facility] [address] [id number] [place] [address] Jun, [facility] [place] [facility] [address] [id number] [place] [address] Jun, [facility] [place] [facility] [address] [id number] [place] [address] Jun, [facility] [place] [facility] [address] [id number] [place] [address] Jun, [facility] [place] [facility] [address] [id number] [place] [address] May, [facility] [place] [facility] [address] [id number] [place] [address] May, [facility] [place] [facility] [address] [id number] [place] [address] May, [facility] [address] [id number] [place] [address] May, [facility] [place] [facility] [address] [id number] [place] [address] Feb, [facility] [address] [id number] [place] [address] Dec, [facility] [place] [facility] [address] [id number] [place] [address] Dec, [facility] [address] [id number] [place] [address] Dec, [facility] [place] [facility] [address] [id number] [place] [address] Dec, [facility] [address] [id number] [place] [address] Dec, [facility] [place] [facility] [address] [id number] [place] [address] Nov, [facility] [address] [id number] [place] [address] Nov, [facility] [place] [facility] [address] [id number] [place] [address] Nov, [facility] [address] [id number] [address] Nov, [facility] [place] [facility] [address] [id number] [place] [address] October, [facility] [place] [facility] [address] [id number] [place] [address] October, [facility] [place] [facility] [address] [id number] [place] [address] October, [facility] [place] [facility] [address] [id number] [place] [address] Aug, [facility] [place] [facility] [address] [id number] [place] [address] Aug, [facility] [place] [facility] [address] [id number] [place] [address] Jul, [facility] [place] [facility] [address] [id number] [place] [address] Jun, [facility] [place] [facility] [address] [id number] [place] [address] Jun, [facility] [place] [facility] [address] [id number] [place] [address] May, [facility] [place] [facility] [address] [id number] [place] [address] May, [facility] [place] [facility] [address] [id number] [place] [address] May, [facility] [place] [facility] [address] [id number] [place] [address] May, [facility] [place] [facility] [address] [id number] [place] [address] May, [facility] [place] [facility] [address] [id number] [place] [address] May, [facility] [place] [facility] [address] [facility] [id number] [place] [address] May, [facility] [place] [facility] [address] [id number] [place] [address] Mar, [facility] [place] [facility] [address] [id number] [place] [address] Mar, [facility] [place] [facility] [address] [id number] [place] [address] Mar, [facility] [place] [facility] [address] [id number] [place] [address] Feb, [facility] [place] [facility] [address] [id number] [place] [address] 08 Feb, 2012 [facility] [place] [facility] [address] [id number] [place] [address] 05 Feb, 2011 [facility] [place] [facility] [address] [id number] [place] [address] Feb, [facility] [place] [facility] [address] [id number] [place] [address] Feb, [facility] [place] [facility] [address] [id number] [place] [address] Feb, [facility] [place] [facility] [address] [id number] [place] [address] Jan, [facility] [place] [facility] [address] [id number] [place] [address] Jan, [facility] [place] [facility] [address] [id number] [place] [address] Jan, [facility] [place] [facility] [address] [id number] [place] [address] Jan, [facility] [place] [facility] [address] [id number] [place] [address] Jan, [facility] [place] [facility] [address] [id number] [place] [address] Jan, [facility] [place] [facility] [address] [id number] [place] [address] Jan, [facility] [place] [facility] [address] [id number] [place] [address] Jan, [facility] [place] [facility] [address] [id number] [place] [address] Jan, [facility] [place] [facility] [address] [id number] [place] [address] Jan, [facility] [place] [facility] [address] [id number] [place] [address] Jan, [facility] [place] [facility] [address] [id number] [place] [address] Jan, [facility] [place] [facility] [address] [id number] [place] [address] Dec, [facility] [place] [facility] [address] [id number] [place] [address] Dec, [facility] [place] [facility] [address] [id number] [place] [address] Dec, [facility] [place] [facility] [address] [id number] [place] [address] Dec, [facility] [place] [facility] [address] [id number] [place] [address] Dec, [facility] [place] [facility] [address] [id number] [place] [address] Dec, [facility] [place] [facility] [address] [id number] [place] [address] Nov, [facility] [place] [facility] [address] [id number] [place] [address] Nov, [facility] [place] [facility] [address] [id number] [place] [address] Nov, [facility] [place] [facility] [address] [id number] [place] [address] Nov, [facility] [place] [facility] [address] [id number] [place] [address] Nov, [facility] [place] [facility] [address] [id number] [place] [address] October, [facility] [place] [facility] [address] [id number] [place] [address] October, [facility] [place] [facility] [address] [id number] [place] [address] October, [facility] [place] [facility] [address] [id number] [place] [address] October, [facility] [address] [address] October, [facility] [address] [address] October, [facility] [address] [facility] [id number] [address] October, [facility] [address] [address] October, [facility] [address] [facility] [id number] [address] October, [facility] [address] [address] October, [facility] [address] [address] October, [facility] [address] [address] October, [facility] [address] [address] Sep, [facility] [address] [address] Sep, [facility] [id number] [address] Sep, IMMUNIZATIONS No Known Immunizations SOCIAL HISTORY Never Assessed REASON FOR VISIT [facility] [place] PLAN OF CARE VITAL [...] x4 Hospitalization History chest pain Hospitalization History [place] [address]
--- OUTSIDE RECORDS SUMMARY | 2018-12-27 21:42 | XMS REPORT ---
Author Author Migration, Doctor Organization [facility] Address Unknown Phone Unavailable Care Team Providers Care Stationary Engineer Apprentice Name Role Phone Migration, Doctor Unavailable Unavailable PROBLEMS Type Condition ICD9-CM Code VNU32-FJ Code Onset Dates Condition Status SNOMED Code Problem Hypothyroidism, unspecified type E03.9 Active 37796386 Problem Moderate persistent asthma with acute exacerbation J45.41 Active 855044631916677 Problem Moderate persistent asthma without complication J45.40 Active 270379871 Problem Hypothyroidism (acquired) E03.9 Active 030650433 Problem Essential hypertension I10 Active 93093370 Problem Seasonal allergic rhinitis due to pollen J30.1 Active [id number] ALLERGIES No Information ENCOUNTERS Encounter Location Date Diagnosis [facility] [address] [address] Jun, [facility] [id number] [place] [address] Jun, [facility] [address] [address] Apr, Acute pancreatitis, unspecified complication status, unspecified pancreatitis type K85.90 ; Dysuria R30.0 ; Hypothyroidism, unspecified type E03.9 and Moderate persistent asthma with acute exacerbation J45.41 [facility] [id number] [place] [address] Mar, [facility] [id number] [place] [address] Mar, Hypothyroidism, unspecified type E03.9 [facility] [address] [address] Mar, Seasonal allergic rhinitis due to pollen J30.1 ; Moderate persistent asthma without complication J45.40 and Essential hypertension I10 [facility] [address] [address] Feb, [facility] [id number] [place] [address] Jan, Moderate persistent asthma with acute exacerbation J45.41 [facility] [id number] [place] [address] Jan, [facility] [id number] [place] [address] May, Severe persistent asthma without complication J45.50 ; Chronic nonseasonal allergic rhinitis due to other allergen J30.89 and Hypothyroidism, unspecified type E03.9 [facility] [address] [address] Apr, [facility] [id number] [place] [address] Apr, [facility] [address] [address] Apr, [facility] [id number] [place] [address] Mar, Hypothyroidism (acquired) E03.9 [facility] [id number] [place] [address] Mar, [facility] [id number] [place] [address] Mar, Chest wall pain R07.89 [facility] [id number] [place] [address] Mar, [facility] [id number] [place] [address] Dec, Moderate persistent asthma without complication J45.40 [facility] [id number] [place] [address] Nov, [facility] [id number] [place] [address] Aug, Moderate persistent asthma with acute exacerbation J45.41 and Hypothyroidism, unspecified type E03.9 [facility] [id number] [address] Aug, Moderate persistent asthma with acute exacerbation J45.41 and Hypothyroidism, unspecified type E03.9 [facility] [id number] [address] Sep, [facility] [address] [address] Sep, [facility] [address] [place] [address] Jul, [facility] [id number] [place] [address] Jul, [facility] [address] [place] [address] Jun, [facility] [address] [address] Jun, [facility] [address] [address] Jun, [facility] [address] [address] Jun, [facility] [address] [place] [address] Jun, [facility] [address] [address] Jun, [facility] [address] [place] [address] May, [facility] [address] [address] May, [facility] [address] [place] [address] Apr, [facility] [address] [address] Apr, [facility] [address] [facility] [place] [address] Apr, [facility] [id number] [address] Apr, [facility] [address] [place] [address] Feb, [facility] [id number] [address] Feb, [facility] [address] [place] [address] Feb, [facility] [id number] [address] Feb, [facility] [address] [place] [address] Jan, [facility] [address] [address] Jan, [facility] [address] [place] [address] Dec, [facility] [id number] [address] Dec, [facility] [address] [place] [address] Dec, [facility] [address] [place] [address] Dec, [facility] [place] [facility] [id number] [address] Dec, [facility] [place] [facility] [id number] [address] Dec, [facility] [place] [facility] [id number] [address] Nov, [facility] [place] [facility] [id number] [address] Nov, [facility] [place] [facility] [id number] [address] Nov, [facility] [place] [facility] [address] [id number] [place] [address] Nov, [facility] [place] [facility] [address] [id number] [place] [address] October, [facility] [place] [facility] [address] [id number] [place] [address] October, [facility] [place] [facility] [address] [id number] [place] [address] October, [facility] [place] [facility] [address] [id number] [place] [address] October, [facility] [place] [facility] [address] [id number] [place] [address] Sep, [facility] [place] [facility] [address] [id number] [place] [address] Sep, [facility] [place] [facility] [address] [id number] [place] [address] Jul, [facility] [place] [facility] [address] [id number] [place] [address] Jun, [facility] [place] [facility] [address] [id number] [place] [address] Jun, [facility] [place] [facility] [address] [id number] [place] [address] Jun, [facility] [place] [facility] [address] [id number] [place] [address] Jun, [facility] [place] [facility] [address] [id number] [place] [address] Jun, [facility] [place] [facility] [address] [id number] [place] [address] May, [facility] [place] [facility] [address] [id number] [place] [address] May, [facility] [place] [facility] [address] [id number] [place] [address] May, [facility] [address] [id number] [place] [address] May, [facility] [place] [facility] [address] [id number] [place] [address] Feb, [facility] [address] [id number] [place] [address] Dec, [facility] [place] [facility] [address] [id number] [place] [address] Dec, [facility] [address] [id number] [place] [address] Dec, [facility] [place] [facility] [address] [id number] [place] [address] Dec, [facility] [address] [id number] [place] [address] Dec, [facility] [place] [facility] [address] [id number] [place] [address] Nov, [facility] [address] [id number] [place] [address] Nov, [facility] [place] [facility] [address] [id number] [place] [address] Nov, [facility] [address] [id number] [address] Nov, [facility] [place] [facility] [address] [id number] [place] [address] October, [facility] [place] [facility] [address] [id number] [place] [address] October, [facility] [place] [facility] [address] [id number] [place] [address] October, [facility] [place] [facility] [address] [id number] [place] [address] Aug, [facility] [place] [facility] [address] [id number] [place] [address] Aug, [facility] [place] [facility] [address] [id number] [place] [address] Jul, [facility] [place] [facility] [address] [id number] [place] [address] Jun, [facility] [place] [facility] [address] [id number] [place] [address] Jun, [facility] [place] [facility] [address] [id number] [place] [address] May, [facility] [place] [facility] [address] [id number] [place] [address] May, [facility] [place] [facility] [address] [id number] [place] [address] May, [facility] [place] [facility] [address] [id number] [place] [address] May, [facility] [place] [facility] [address] [id number] [place] [address] May, [facility] [place] [facility] [address] [id number] [place] [address] May, [facility] [place] [facility] [address] [facility] [id number] [place] [address] May, [facility] [place] [facility] [address] [id number] [place] [address] Mar, [facility] [place] [facility] [address] [id number] [place] [address] Mar, [facility] [place] [facility] [address] [id number] [place] [address] Mar, [facility] [place] [facility] [address] [id number] [place] [address] Feb, [facility] [place] [facility] [address] [id number] [place] [address] 08 Feb, 2012 [facility] [place] [facility] [address] [id number] [place] [address] 05 Feb, 2011 [facility] [place] [facility] [address] [id number] [place] [address] Feb, [facility] [place] [facility] [address] [id number] [place] [address] Feb, [facility] [place] [facility] [address] [id number] [place] [address] Feb, [facility] [place] [facility] [address] [id number] [place] [address] Jan, [facility] [place] [facility] [address] [id number] [place] [address] Jan, [facility] [place] [facility] [address] [id number] [place] [address] Jan, [facility] [place] [facility] [address] [id number] [place] [address] Jan, [facility] [place] [facility] [address] [id number] [place] [address] Jan, [facility] [place] [facility] [address] [id number] [place] [address] Jan, [facility] [place] [facility] [address] [id number] [place] [address] Jan, [facility] [place] [facility] [address] [id number] [place] [address] Jan, [facility] [place] [facility] [address] [id number] [place] [address] Jan, [facility] [place] [facility] [address] [id number] [place] [address] Jan, [facility] [place] [facility] [address] [id number] [place] [address] Jan, [facility] [place] [facility] [address] [id number] [place] [address] Jan, [facility] [place] [facility] [address] [id number] [place] [address] Dec, [facility] [place] [facility] [address] [id number] [place] [address] Dec, [facility] [place] [facility] [address] [id number] [place] [address] Dec, [facility] [place] [facility] [address] [id number] [place] [address] Dec, [facility] [place] [facility] [address] [id number] [place] [address] Dec, [facility] [place] [facility] [address] [id number] [place] [address] Dec, [facility] [place] [facility] [address] [id number] [place] [address] Nov, [facility] [place] [facility] [address] [id number] [place] [address] Nov, [facility] [place] [facility] [address] [id number] [place] [address] Nov, [facility] [place] [facility] [address] [id number] [place] [address] Nov, [facility] [place] [facility] [address] [id number] [place] [address] Nov, [facility] [place] [facility] [address] [id number] [place] [address] October, [facility] [place] [facility] [address] [id number] [place] [address] October, [facility] [place] [facility] [address] [id number] [place] [address] October, [facility] [place] [facility] [address] [id number] [place] [address] October, [facility] [address] [address] October, [facility] [address] [address] October, [facility] [address] [facility] [id number] [address] October, [facility] [address] [address] October, [facility] [address] [facility] [place] [id number] [address] October, [facility] [address] [address] October, [facility] [address] [address] October, [facility] [address], [place] [address] October, [facility] [address], [place] [address] Sep, [facility] [address] [address] Sep, [facility] [id number] [address] Sep, IMMUNIZATIONS No Known Immunizations SOCIAL HISTORY Never Assessed REASON FOR VISIT [facility] PLAN OF CARE VITAL SIGNS MEDICATIONS Unknown [...] x4 Hospitalization History chest pain Hospitalization History [place] [address]
--- OUTSIDE RECORDS SUMMARY | 2018-12-27 21:42 | XMS REPORT ---
Author Author Migration, Doctor Organization [facility] Address Unknown Phone Unavailable Care Team Providers Care Cloth Doubling Machine Operator Name Role Phone Migration, Doctor Unavailable Unavailable PROBLEMS Type Condition ICD9-CM Code NRE45-SB Code Onset Dates Condition Status SNOMED Code Problem Hypothyroidism, unspecified type E03.9 Active 49037176 Problem Moderate persistent asthma with acute exacerbation J45.41 Active 842589714490555 Problem Moderate persistent asthma without complication J45.40 Active 221650791 Problem Hypothyroidism (acquired) E03.9 Active 825697022 Problem Essential hypertension I10 Active 85719620 Problem Seasonal allergic rhinitis due to pollen J30.1 Active 83518215 ALLERGIES No Information ENCOUNTERS Encounter Location Date Diagnosis [facility] [address] [address] Jun, [facility] [id number] [place] [address] Jun, [facility] [address] [address] Apr, Acute pancreatitis, unspecified complication status, unspecified pancreatitis type K85.90 ; Dysuria R30.0 ; Hypothyroidism, unspecified type E03.9 and Moderate persistent asthma with acute exacerbation J45.41 [facility] [id number] [place] [address] Mar, [facility] [id number] [place] [address] Mar, Hypothyroidism, unspecified type E03.9 [facility] [address] [address] Mar, Seasonal allergic rhinitis due to pollen J30.1 ; Moderate persistent asthma without complication J45.40 and Essential hypertension I10 [facility] [address] [address] Feb, [facility] [id number] [place] [address] Jan, Moderate persistent asthma with acute exacerbation J45.41 [facility] [id number] [place] [address] Jan, [facility] [id number] [place] [address] May, Severe persistent asthma without complication J45.50 ; Chronic nonseasonal allergic rhinitis due to other allergen J30.89 and Hypothyroidism, unspecified type E03.9 [facility] [address] [address] Apr, [facility] [id number] [place] [address] Apr, [facility] [address] [address] Apr, [facility] [id number] [place] [address] Mar, Hypothyroidism (acquired) E03.9 [facility] [id number] [place] [address] Mar, [facility] [id number] [place] [address] Mar, Chest wall pain R07.89 [facility] [id number] [place] [address] Mar, [facility] [id number] [place] [address] Dec, Moderate persistent asthma without complication J45.40 [facility] [id number] [place] [address] Nov, [facility] [id number] [place] [address] Aug, Moderate persistent asthma with acute exacerbation J45.41 and Hypothyroidism, unspecified type E03.9 [facility] [id number] [address] Aug, Moderate persistent asthma with acute exacerbation J45.41 and Hypothyroidism, unspecified type E03.9 [facility] [id number] [address] Sep, [facility] [address] [address] Sep, [facility] [address] [place] [address] Jul, [facility] [id number] [place] [address] Jul, [facility] [address] [place] [address] Jun, [facility] [address] [address] Jun, [facility] [address] [address] Jun, [facility] [address] [address] Jun, [facility] [address] [place] [address] Jun, [facility] [address] [address] Jun, [facility] [address] [place] [address] May, [facility] [address] [address] May, [facility] [address] [place] [address] Apr, [facility] [address] [address] Apr, [facility] [address] [facility] [place] [address] Apr, [facility] [id number] [address] Apr, [facility] [address] [place] [address] Feb, [facility] [id number], [place] [address] Feb, [facility] [address] [place] [address] Feb, [facility] [id number], [place] [address] Feb, [facility] [address] [place] [address] Jan, [facility] [address], [place] [address] Jan, [facility] [address] [place] [address] Dec, [facility] [id number], [place] [address] Dec, [facility] [address] [place] [address] Dec, [facility] [address] [place] [address] Dec, [facility] [place] [facility] [id number], [place] [address] Dec, [facility] [place] [facility] [id number], [place] [address] Dec, [facility] [place] [facility] [id number], [place] [address] Nov, [facility] [place] [facility] [id number], [place] [address] Nov, [facility] [place] [facility] [id number], [place] [address] Nov, [facility] [place] [facility] [address] [id number] [place] [address] Nov, [facility] [place] [facility] [address] [id number] [place] [address] October, [facility] [place] [facility] [address] [id number] [place] [address] October, [facility] [place] [facility] [address] [id number] [place] [address] October, [facility] [place] [facility] [address] [id number] [place] [address] October, [facility] [place] [facility] [address] [id number] [place] [address] Sep, [facility] [place] [facility] [address] [id number] [place] [address] Sep, [facility] [place] [facility] [address] [id number] [place] [address] Jul, [facility] [place] [facility] [address] [id number] [place] [address] Jun, [facility] [place] [facility] [address] [id number] [place] [address] Jun, [facility] [place] [facility] [address] [id number] [place] [address] Jun, [facility] [place] [facility] [address] [id number] [place] [address] Jun, [facility] [place] [facility] [address] [id number] [place] [address] Jun, [facility] [place] [facility] [address] [id number] [place] [address] May, [facility] [place] [facility] [address] [id number] [place] [address] May, [facility] [place] [facility] [address] [id number] [place] [address] May, [facility] [address] [id number] [place] [address] May, [facility] [place] [facility] [address] [id number] [place] [address] Feb, [facility] [address] [id number] [place] [address] Dec, [facility] [place] [facility] [address] [id number] [place] [address] Dec, [facility] [address] [id number] [place] [address] Dec, [facility] [place] [facility] [address] [id number] [place] [address] Dec, [facility] [address] [id number] [place] [address] Dec, [facility] [place] [facility] [address] [id number] [place] [address] Nov, [facility] [address] [id number] [place] [address] Nov, [facility] [place] [facility] [address] [id number] [place] [address] Nov, [facility] [address] [id number] [address] Nov, [facility] [place] [facility] [address] [id number] [place] [address] October, [facility] [place] [facility] [address] [id number] [place] [address] October, [facility] [place] [facility] [address] [id number] [place] [address] October, [facility] [place] [facility] [address] [id number] [place] [address] Aug, [facility] [place] [facility] [address] [id number] [place] [address] Aug, [facility] [place] [facility] [address] [id number] [place] [address] Jul, [facility] [place] [facility] [address] [id number] [place] [address] Jun, [facility] [place] [facility] [address] [id number] [place] [address] Jun, [facility] [place] [facility] [address] [id number] [place] [address] May, [facility] [place] [facility] [address] [id number] [place] [address] May, [facility] [place] [facility] [address] [id number] [place] [address] May, [facility] [place] [facility] [address] [id number] [place] [address] May, [facility] [place] [facility] [address] [id number] [place] [address] May, [facility] [place] [facility] [address] [id number] [place] [address] May, [facility] [place] [facility] [address] [facility] [id number] [place] [address] May, [facility] [place] [facility] [address] [id number] [place] [address] Mar, [facility] [place] [facility] [address] [id number] [place] [address] Mar, [facility] [place] [facility] [address] [id number] [place] [address] Mar, [facility] [place] [facility] [address] [id number] [place] [address] Feb, [facility] [place] [facility] [address] [id number] [place] [address] 08 Feb, 2012 [facility] [place] [facility] [address] [id number] [place] [address] 05 Feb, 2011 [facility] [place] [facility] [address] [id number] [place] [address] Feb, [facility] [place] [facility] [address] [id number] [place] [address] Feb, [facility] [place] [facility] [address] [id number] [place] [address] Feb, [facility] [place] [facility] [address] [id number] [place] [address] Jan, [facility] [place] [facility] [address] [id number] [place] [address] Jan, [facility] [place] [facility] [address] [id number] [place] [address] Jan, [facility] [place] [facility] [address] [id number] [place] [address] Jan, [facility] [place] [facility] [address] [id number] [place] [address] Jan, [facility] [place] [facility] [address] [id number] [place] [address] Jan, [facility] [place] [facility] [address] [id number] [place] [address] Jan, [facility] [place] [facility] [address] [id number] [place] [address] Jan, [facility] [place] [facility] [address] [id number] [place] [address] Jan, [facility] [place] [facility] [address] [id number] [place] [address] Jan, [facility] [place] [facility] [address] [id number] [place] [address] Jan, [facility] [place] [facility] [address] [id number] [place] [address] Jan, [facility] [place] [facility] [address] [id number] [place] [address] Dec, [facility] [place] [facility] [address] [id number] [place] [address] Dec, [facility] [place] [facility] [address] [id number] [place] [address] Dec, [facility] [place] [facility] [address] [id number] [place] [address] Dec, [facility] [place] [facility] [address] [id number] [place] [address] Dec, [facility] [place] [facility] [address] [id number] [place] [address] Dec, [facility] [place] [facility] [address] [id number] [place] [address] Nov, [facility] [place] [facility] [address] [id number] [place] [address] Nov, [facility] [place] [facility] [address] [id number] [place] [address] Nov, [facility] [place] [facility] [address] [id number] [place] [address] Nov, [facility] [place] [facility] [address] [id number] [place] [address] Nov, [facility] [place] [facility] [address] [id number] [place] [address] October, [facility] [place] [facility] [address] [id number] [place] [address] October, [facility] [place] [facility] [address] [id number] [place] [address] October, [facility] [place] [facility] [address] [id number] [place] [address] October, [facility] [id number], [place] [address] October, [facility] [address], [place] [address] October, [facility] [address], [place] [address] October, [facility] [address] [address] October, [facility] [address], [place] [address] October, [facility] [address], [place] [address] October, [facility] [address], [place] [address] October, [facility] [address], [place] [address] October, [facility] [address], [place] [address] Sep, [facility] [address], [place] [address] Sep, [facility] [id number], [place] [address] Sep, IMMUNIZATIONS No Known Immunizations SOCIAL HISTORY Never Assessed REASON FOR VISIT [facility] [place] VITAL SIGNS MEDICATIONS Medication Instructions Dosage Frequency Start Date End Date Duration Status Augmentin 875-125 mg 1 tablet by Oral route 2 times per day for 10 day(s) May, Active Symbicort 160-4.5 mcg/actuation inhale 2 puffs by inhalation route 2 times per day in the morning and evening Jun, Active Albuterol Sulfate 0.63 mg/3 mL 3 mL by Inhalation route every 4 hours PRN cough or wheeze Apr, Active Omeprazole 20 mg take 1 capsules by Oral route before meals 2 times per day Jul, Active PredniSONE 20 mg take 1 tablet by Oral route 2 times per day for 5 day(s) Jun, Active levothyroxine 100 mcg take 1 tablet (100 mcg) by oral route once daily Jun, Active RESULTS No Results PROCEDURES No Known procedures INSTRUCTIONS MEDICATIONS ADMINISTERED No Known Medications MEDICAL (GENERAL) HISTORY Type Description Date Medical History asthma Medical History hypothyroid Medical History Gerd Medical History COPD, severe Medical History GERARDO, uses CPAP Surgical History heart cath no interventions Hospitalization History asthma, shortness of breath x4 Hospitalization History chest pain Hospitalization History [facility] 2018
--- OUTSIDE RECORDS SUMMARY | 2018-12-27 21:42 | XMS REPORT ---
Author Author Migration, Doctor Organization [facility] Address Unknown Phone Unavailable Care Team Providers Care Resource Paraprofessional Name Role Phone Migration, Doctor Unavailable Unavailable PROBLEMS Type Condition ICD9-CM Code OZL06-EV Code Onset Dates Condition Status SNOMED Code Problem Hypothyroidism, unspecified type E03.9 Active 31693348 Problem Moderate persistent asthma with acute exacerbation J45.41 Active 922815299664377 Problem Moderate persistent asthma without complication J45.40 Active 661143380 Problem Hypothyroidism (acquired) E03.9 Active 533232081 Problem Essential hypertension I10 Active 09647051 Problem Seasonal allergic rhinitis due to pollen J30.1 Active 12422526 ALLERGIES No Information ENCOUNTERS Encounter Location Date Diagnosis [facility] [address] [address] Jun, [facility] [id number] [place] [address] Jun, [facility] [address] [address] Apr, Acute pancreatitis, unspecified complication status, unspecified pancreatitis type K85.90 ; Dysuria R30.0 ; Hypothyroidism, unspecified type E03.9 and Moderate persistent asthma with acute exacerbation J45.41 [facility] [id number] [place] [address] Mar, [facility] [id number] [place] [address] Mar, Hypothyroidism, unspecified type E03.9 [facility] [address] [address] Mar, Seasonal allergic rhinitis due to pollen J30.1 ; Moderate persistent asthma without complication J45.40 and Essential hypertension I10 [facility] [address] [address] Feb, [facility] [id number] [place] [address] Jan, Moderate persistent asthma with acute exacerbation J45.41 [facility] [id number] [place] [address] Jan, [facility] [id number] [place] [address] May, Severe persistent asthma without complication J45.50 ; Chronic nonseasonal allergic rhinitis due to other allergen J30.89 and Hypothyroidism, unspecified type E03.9 [facility] [address] [address] Apr, [facility] [id number] [place] [address] Apr, [facility] [address] [address] Apr, [facility] [id number] [place] [address] Mar, Hypothyroidism (acquired) E03.9 [facility] [id number] [place] [address] Mar, [facility] [id number] [place] [address] Mar, Chest wall pain R07.89 [facility] [id number] [place] [address] Mar, [facility] [id number] [place] [address] Dec, Moderate persistent asthma without complication J45.40 [facility] [id number] [place] [address] Nov, [facility] [id number] [place] [address] Aug, Moderate persistent asthma with acute exacerbation J45.41 and Hypothyroidism, unspecified type E03.9 [facility] [id number] [address] Aug, Moderate persistent asthma with acute exacerbation J45.41 and Hypothyroidism, unspecified type E03.9 [facility] [id number] [address] Sep, [facility] [address] [place] [address] Sep, [facility] [address] [place] [address] Jul, [facility] [id number] [place] [address] Jul, [facility] [address] [place] [address] Jun, [facility] [address] [place] [address] Jun, [facility] [address] [place] [address] Jun, [facility] [address] [place] [address] Jun, [facility] [address] [place] [address] Jun, [facility] [address] [place] [address] Jun, [facility] [address] [place] [address] May, [facility] [address] [place] [address] May, [facility] [address] [place] [address] Apr, [facility] [address], [place] [address] Apr, [facility] [address] [place] [address] Apr, [facility] [id number] [address] Apr, [facility] [address] [place] [address] Feb, [facility] [id number] [address] Feb, [facility] [address] [place] [address] Feb, [facility] [id number] [address] Feb, [facility] [address] [place] [address] Jan, [facility] [address] [place] [address] Jan, [facility] [address] [place] [address] Dec, [facility] [id number] [address] Dec, [facility] [address] [place] [address] Dec, [facility] [address] [place] [address] Dec, [facility] [place] [facility] [id number] [address] Dec, [facility] [place] [facility] [id number] [address] Dec, [facility] [place] [facility] [id number] [address] Nov, [facility] [place] [facility] [id number] [address] Nov, [facility] [place] [facility] [id number], [place] [address] Nov, [facility] [place] [facility] [address] [id number] [place] [address] Nov, [facility] [place] [facility] [address] [id number] [place] [address] October, [facility] [place] [facility] [address] [id number] [place] [address] October, [facility] [place] [facility] [address] [id number] [place] [address] October, [facility] [place] [facility] [address] [id number] [place] [address] October, [facility] [place] [facility] [address] [id number] [place] [address] Sep, [facility] [place] [facility] [address] [id number] [place] [address] Sep, [facility] [place] [facility] [address] [id number] [place] [address] Jul, [facility] [place] [facility] [address] [id number] [place] [address] Jun, [facility] [place] [facility] [address] [id number] [place] [address] Jun, [facility] [place] [facility] [address] [id number] [place] [address] Jun, [facility] [place] [facility] [address] [id number] [place] [address] Jun, [facility] [place] [facility] [address] [id number] [place] [address] Jun, [facility] [place] [facility] [address] [id number] [place] [address] May, [facility] [place] [facility] [address] [id number] [place] [address] May, [facility] [place] [facility] [address] [id number] [place] [address] May, [facility] [address] [id number] [place] [address] May, [facility] [place] [facility] [address] [id number] [place] [address] Feb, [facility] [address] [id number] [place] [address] Dec, [facility] [place] [facility] [address] [id number] [place] [address] Dec, [facility] [address] [id number] [place] [address] Dec, [facility] [place] [facility] [address] [id number] [place] [address] Dec, [facility] [address] [id number] [place] [address] Dec, [facility] [place] [facility] [address] [id number] [place] [address] Nov, [facility] [address] [id number] [place] [address] Nov, [facility] [place] [facility] [address] [id number] [place] [address] Nov, [facility] [address] [id number], [place] [address] Nov, [facility] [place] [facility] [address] [id number] [place] [address] October, [facility] [place] [facility] [address] [id number] [place] [address] October, [facility] [place] [facility] [address] [id number] [place] [address] October, [facility] [place] [facility] [address] [id number] [place] [address] Aug, [facility] [place] [facility] [address] [id number] [place] [address] Aug, [facility] [place] [facility] [address] [id number] [place] [address] Jul, [facility] [place] [facility] [address] [id number] [place] [address] Jun, [facility] [place] [facility] [address] [id number] [place] [address] Jun, [facility] [place] [facility] [address] [id number] [place] [address] May, [facility] [place] [facility] [address] [id number] [place] [address] May, [facility] [place] [facility] [address] [id number] [place] [address] May, [facility] [place] [facility] [address] [id number] [place] [address] May, [facility] [place] [facility] [address] [id number] [place] [address] May, [facility] [place] [facility] [address] [id number] [place] [address] May, [facility] [place] [facility] [address] [facility] [id number] [place] [address] May, [facility] [place] [facility] [address] [id number] [place] [address] Mar, [facility] [place] [facility] [address] [id number] [place] [address] Mar, [facility] [place] [facility] [address] [id number] [place] [address] Mar, [facility] [place] [facility] [address] [id number] [place] [address] Feb, [facility] [place] [facility] [address] [id number] [place] [address] 08 Feb, 2012 [facility] [place] [facility] [address] [id number] [place] [address] 05 Feb, 2011 [facility] [place] [facility] [address] [id number] [place] [address] Feb, [facility] [place] [facility] [address] [id number] [place] [address] Feb, [facility] [place] [facility] [address] [id number] [place] [address] Feb, [facility] [place] [facility] [address] [id number] [place] [address] Jan, [facility] [place] [facility] [address] [id number] [place] [address] Jan, [facility] [place] [facility] [address] [id number] [place] [address] Jan, [facility] [place] [facility] [address] [id number] [place] [address] Jan, [facility] [place] [facility] [address] [id number] [place] [address] Jan, [facility] [place] [facility] [address] [id number] [place] [address] Jan, [facility] [place] [facility] [address] [id number] [place] [address] Jan, [facility] [place] [facility] [address] [id number] [place] [address] Jan, [facility] [place] [facility] [address] [id number] [place] [address] Jan, [facility] [place] [facility] [address] [id number] [place] [address] Jan, [facility] [place] [facility] [address] [id number] [place] [address] Jan, [facility] [place] [facility] [address] [id number] [place] [address] Jan, [facility] [place] [facility] [address] [id number] [place] [address] Dec, [facility] [place] [facility] [address] [id number] [place] [address] Dec, [facility] [place] [facility] [address] [id number] [place] [address] Dec, [facility] [place] [facility] [address] [id number] [place] [address] Dec, [facility] [place] [facility] [address] [id number] [place] [address] Dec, [facility] [place] [facility] [address] [id number] [place] [address] Dec, [facility] [place] [facility] [address] [id number] [place] [address] Nov, [facility] [place] [facility] [address] [id number] [place] [address] Nov, [facility] [place] [facility] [address] [id number] [place] [address] Nov, [facility] [place] [facility] [address] [id number] [place] [address] Nov, [facility] [place] [facility] [address] [id number] [place] [address] Nov, [facility] [place] [facility] [address] [id number] [place] [address] October, [facility] [place] [facility] [address] [id number] [place] [address] October, [facility] [place] [facility] [address] [id number] [place] [address] October, [facility] [place] [facility] [address] [id number] [place] [address] October, [facility] [address] [place] [address] October, [facility] [address], [place] [address] October, [facility] [address] [facility] [id number] [address] October, [facility] [address], [place] [address] October, [facility] [address] [facility] [place] [id number], [place] [address] October, [facility] [address], [place] [address] October, [facility] [address], [place] [address] October, [facility] [address], [place] [address] October, [facility] [address], [place] [address] Sep, [facility] [address], [place] [address] Sep, [facility] [id number] [place] [address] Sep, IMMUNIZATIONS No Known Immunizations SOCIAL HISTORY Never Assessed REASON FOR VISIT [facility] PLAN OF CARE VITAL SIGNS MEDICATIONS Unknown [...] x4 Hospitalization History chest pain Hospitalization History [place] [id number]
--- OUTSIDE RECORDS SUMMARY | 2018-12-27 21:43 | XMS REPORT ---
Author Author Migration, Doctor Organization [facility] Address Unknown Phone Unavailable Care Team Providers Care Insurance Legal Assistant Name Role Phone Migration, Doctor Unavailable Unavailable PROBLEMS Type Condition ICD9-CM Code QNP75-MD Code Onset Dates Condition Status SNOMED Code Problem Hypothyroidism, unspecified type E03.9 Active 45885322 Problem Moderate persistent asthma with acute exacerbation J45.41 Active 811092038867410 Problem Moderate persistent asthma without complication J45.40 Active 170406331 Problem Hypothyroidism (acquired) E03.9 Active 872484722 Problem Essential hypertension I10 Active 03719844 Problem Seasonal allergic rhinitis due to pollen J30.1 Active 17173241 ALLERGIES No Information ENCOUNTERS Encounter Location Date Diagnosis [facility] [address] [address] Jun, [facility] [id number] [place] [address] Jun, [facility] [address] [address] Apr, Acute pancreatitis, unspecified complication status, unspecified pancreatitis type K85.90 ; Dysuria R30.0 ; Hypothyroidism, unspecified type E03.9 and Moderate persistent asthma with acute exacerbation J45.41 [facility] [id number] [place] [address] Mar, [facility] [address] [address] Mar, Hypothyroidism, unspecified type E03.9 [facility] [address] [address] Mar, Seasonal allergic rhinitis due to pollen J30.1 ; Moderate persistent asthma without complication J45.40 and Essential hypertension I10 [facility] [address] [address] Feb, [facility] [id number] [place] [address] Jan, Moderate persistent asthma with acute exacerbation J45.41 [facility] [id number] [place] [address] Jan, [facility] [id number] [place] [address] May, Severe persistent asthma without complication J45.50 ; Chronic nonseasonal allergic rhinitis due to other allergen J30.89 and Hypothyroidism, unspecified type E03.9 [facility] [address] [address] Apr, [facility] [id number] [place] [address] Apr, [facility] [address] [address] Apr, [facility] [id number] [place] [address] Mar, Hypothyroidism (acquired) E03.9 [facility] [id number] [place] [address] Mar, [facility] [id number] [place] [address] Mar, Chest wall pain R07.89 [facility] [id number] [place] [address] Mar, [facility] [id number] [place] [address] Dec, Moderate persistent asthma without complication J45.40 [facility] [id number] [place] [address] Nov, [facility] [id number] [place] [address] Aug, Moderate persistent asthma with acute exacerbation J45.41 and Hypothyroidism, unspecified type E03.9 [facility] [id number] [address] Aug, Moderate persistent asthma with acute exacerbation J45.41 and Hypothyroidism, unspecified type E03.9 [facility] [id number] [address] Sep, [facility] [id number] [address] Sep, [facility] [address] [place] [address] Jul, [facility] [id number] [place] [address] Jul, [facility] [address] [place] [address] Jun, [facility] [id number] [address] Jun, [facility] [id number] [address] Jun, [facility] [id number] [address] Jun, [facility] [address] [place] [address] Jun, [facility] [id number] [address] Jun, [facility] [address] [place] [address] May, [facility] [id number] [address] May, [facility] [address] [place] [address] Apr, [facility] [id number] [address] Apr, [facility] [address] [facility] [place] [address] Apr, [facility] [id number] [address] Apr, [facility] [address] [place] [address] Feb, [facility] [id number] [address] Feb, [facility] [address] [place] [address] Feb, [facility] [id number] [address] Feb, [facility] [address] [place] [address] Jan, [facility] [id number] [address] Jan, [facility] [address] [place] [address] Dec, [facility] [id number] [address] Dec, [facility] [address] [place] [address] Dec, [facility] [address] [place] [address] Dec, [facility] [place] [facility] [id number] [address] Dec, [facility] [place] [facility] [id number] [address] Dec, [facility] [place] [facility] [id number] [address] Nov, [facility] [place] [facility] [id number] [address] Nov, [facility] [place] [facility] [id number] [address] Nov, [facility] [place] [facility] [address] [id number] [place] [address] Nov, [facility] [place] [facility] [address] [id number] [place] [address] October, [facility] [place] [facility] [address] [id number] [place] [address] October, [facility] [place] [facility] [address] [id number] [place] [address] October, [facility] [place] [facility] [address] [id number] [place] [address] October, [facility] [place] [facility] [address] [id number] [place] [address] Sep, [facility] [place] [facility] [address] [id number] [place] [address] Sep, [facility] [place] [facility] [address] [id number] [place] [address] Jul, [facility] [place] [facility] [address] [id number] [place] [address] Jun, [facility] [place] [facility] [address] [id number] [place] [address] Jun, [facility] [place] [facility] [address] [id number] [place] [address] Jun, [facility] [place] [facility] [address] [id number] [place] [address] Jun, [facility] [place] [facility] [address] [id number] [place] [address] Jun, [facility] [place] [facility] [address] [id number] [place] [address] May, [facility] [place] [facility] [address] [id number] [place] [address] May, [facility] [place] [facility] [address] [id number] [place] [address] May, [facility] [address] [id number] [place] [address] May, [facility] [place] [facility] [address] [id number] [place] [address] Feb, [facility] [address] [id number] [place] [address] Dec, [facility] [place] [facility] [address] [id number] [place] [address] Dec, [facility] [address] [id number] [place] [address] Dec, [facility] [place] [facility] [address] [id number] [place] [address] Dec, [facility] [address] [id number] [place] [address] Dec, [facility] [place] [facility] [address] [id number] [place] [address] Nov, [facility] [address] [id number] [place] [address] Nov, [facility] [place] [facility] [address] [id number] [place] [address] Nov, [facility] [address] [id number] [address] Nov, [facility] [place] [facility] [address] [id number] [place] [address] October, [facility] [place] [facility] [address] [id number] [place] [address] October, [facility] [place] [facility] [address] [id number] [place] [address] October, [facility] [place] [facility] [address] [id number] [place] [address] Aug, [facility] [place] [facility] [address] [id number] [place] [address] Aug, [facility] [place] [facility] [address] [id number] [place] [address] Jul, [facility] [place] [facility] [address] [id number] [place] [address] Jun, [facility] [place] [facility] [address] [id number] [place] [address] Jun, [facility] [place] [facility] [address] [id number] [place] [address] May, [facility] [place] [facility] [address] [id number] [place] [address] May, [facility] [place] [facility] [address] [id number] [place] [address] May, [facility] [place] [facility] [address] [id number] [place] [address] May, [facility] [place] [facility] [address] [id number] [place] [address] May, [facility] [place] [facility] [address] [id number] [place] [address] May, [facility] [place] [facility] [address] [facility] [id number] [place] [address] May, [facility] [place] [facility] [address] [id number] [place] [address] Mar, [facility] [place] [facility] [address] [id number] [place] [address] Mar, [facility] [place] [facility] [address] [id number] [place] [address] Mar, [facility] [place] [facility] [address] [id number] [place] [address] Feb, [facility] [place] [facility] [address] [id number] [place] [address] 08 Feb, 2012 [facility] [place] [facility] [address] [id number] [place] [address] 05 Feb, 2011 [facility] [place] [facility] [address] [id number] [place] [address] Feb, [facility] [place] [facility] [address] [id number] [place] [address] Feb, [facility] [place] [facility] [address] [id number] [place] [address] Feb, [facility] [place] [facility] [address] [id number] [place] [address] Jan, [facility] [place] [facility] [address] [id number] [place] [address] Jan, [facility] [place] [facility] [address] [id number] [place] [address] Jan, [facility] [place] [facility] [address] [id number] [place] [address] Jan, [facility] [place] [facility] [address] [id number] [place] [address] Jan, [facility] [place] [facility] [address] [id number] [place] [address] Jan, [facility] [place] [facility] [address] [id number] [place] [address] Jan, [facility] [place] [facility] [address] [id number] [place] [address] Jan, [facility] [place] [facility] [address] [id number] [place] [address] Jan, [facility] [place] [facility] [address] [id number] [place] [address] Jan, [facility] [place] [facility] [address] [id number] [place] [address] Jan, [facility] [place] [facility] [address] [id number] [place] [address] Jan, [facility] [place] [facility] [address] [id number] [place] [address] Dec, [facility] [place] [facility] [address] [id number] [place] [address] Dec, [facility] [place] [facility] [address] [id number] [place] [address] Dec, [facility] [place] [facility] [address] [id number] [place] [address] Dec, [facility] [place] [facility] [address] [id number] [place] [address] Dec, [facility] [place] [facility] [address] [id number] [place] [address] Dec, [facility] [place] [facility] [address] [id number] [place] [address] Nov, [facility] [place] [facility] [address] [id number] [place] [address] Nov, [facility] [place] [facility] [address] [id number] [place] [address] Nov, [facility] [place] [facility] [address] [id number] [place] [address] Nov, [facility] [place] [facility] [address] [id number] [place] [address] Nov, [facility] [place] [facility] [address] [id number] [place] [address] October, [facility] [place] [facility] [address] [id number] [place] [address] October, [facility] [place] [facility] [address] [id number] [place] [address] October, [facility] [place] [facility] [address] [id number] [place] [address] October, [facility] [address] [address] October, [facility] [address] [address] October, [facility] [address] [facility] [id number], [place] [address] October, [facility] [address], [place] [address] October, [facility] [address] [facility] [id number], [place] [address] October, [facility] [address], [place] [address] October, [facility] [address], [place] [address] October, [facility] [address], [place] [address] October, [facility] [id number], [place] [address] Sep, [facility] [id number] [address] Sep, [facility] [id number] [address] Sep, IMMUNIZATIONS No Known Immunizations SOCIAL HISTORY Never Assessed REASON FOR VISIT [facility] [...] x4 Hospitalization History chest pain Hospitalization History [place] [address]
--- OUTSIDE RECORDS SUMMARY | 2018-12-27 21:43 | XMS REPORT ---
Author Author Migration, Doctor Organization [facility] Address Unknown Phone Unavailable Care Team Providers Care Product Safety Professional Name Role Phone Migration, Doctor Unavailable Unavailable PROBLEMS Type Condition ICD9-CM Code FTN45-MR Code Onset Dates Condition Status SNOMED Code Problem Hypothyroidism, unspecified type E03.9 Active 91715130 Problem Moderate persistent asthma with acute exacerbation J45.41 Active 027502580107963 Problem Moderate persistent asthma without complication J45.40 Active 075370017 Problem Hypothyroidism (acquired) E03.9 Active 082327743 Problem Essential hypertension I10 Active 03011939 Problem Seasonal allergic rhinitis due to pollen J30.1 Active [id number] ALLERGIES No Information ENCOUNTERS Encounter Location Date Diagnosis [facility] [address] [address] Jun, [facility] [id number] [place] [address] Jun, [facility] [address] [address] Apr, Acute pancreatitis, unspecified complication status, unspecified pancreatitis type K85.90 ; Dysuria R30.0 ; Hypothyroidism, unspecified type E03.9 and Moderate persistent asthma with acute exacerbation J45.41 [facility] [id number] [place] [address] Mar, [facility] [address] [address] Mar, Hypothyroidism, unspecified type E03.9 [facility] [address] [address] Mar, Seasonal allergic rhinitis due to pollen J30.1 ; Moderate persistent asthma without complication J45.40 and Essential hypertension I10 [facility] [address] [address] Feb, [facility] [id number] [place] [address] Jan, Moderate persistent asthma with acute exacerbation J45.41 [facility] [id number] [place] [address] Jan, [facility] [id number] [place] [address] May, Severe persistent asthma without complication J45.50 ; Chronic nonseasonal allergic rhinitis due to other allergen J30.89 and Hypothyroidism, unspecified type E03.9 [facility] [address] [address] Apr, [facility] [id number] [place] [address] Apr, [facility] [address] [address] Apr, [facility] [id number] [place] [address] Mar, Hypothyroidism (acquired) E03.9 [facility] [id number] [place] [address] Mar, [facility] [id number] [place] [address] Mar, Chest wall pain R07.89 [facility] [id number] [place] [address] Mar, [facility] [id number] [place] [address] Dec, Moderate persistent asthma without complication J45.40 [facility] [id number] [place] [address] Nov, [facility] [id number] [place] [address] Aug, Moderate persistent asthma with acute exacerbation J45.41 and Hypothyroidism, unspecified type E03.9 [facility] [id number] [address] Aug, Moderate persistent asthma with acute exacerbation J45.41 and Hypothyroidism, unspecified type E03.9 [facility] [id number] [address] Sep, [facility] [id number] [address] Sep, [facility] [address] [place] [address] Jul, [facility] [id number] [place] [address] Jul, [facility] [address] [place] [address] Jun, [facility] [id number] [address] Jun, [facility] [id number] [address] Jun, [facility] [id number] [address] Jun, [facility] [address] [place] [address] Jun, [facility] [address] [address] Jun, [facility] [address] [place] [address] May, [facility] [address] [address] May, [facility] [address] [place] [address] Apr, [facility] [address] [address] Apr, [facility] [address] [place] [address] Apr, [facility] [id number] [address] Apr, [facility] [address] [place] [address] Feb, [facility] [id number] [address] Feb, [facility] [address] [place] [address] Feb, [facility] [id number] [address] Feb, [facility] [address] [place] [address] Jan, [facility] [address] [address] Jan, [facility] [address] [place] [address] Dec, [facility] [id number] [address] Dec, [facility] [address] [place] [address] Dec, [facility] [address] [place] [address] Dec, [facility] [place] [facility] [id number] [address] Dec, [facility] [place] [facility] [id number] [address] Dec, [facility] [place] [facility] [id number] [address] Nov, [facility] [place] [facility] [id number] [address] Nov, [facility] [place] [facility] [id number] [address] Nov, [facility] [place] [facility] [address] [id number] [place] [address] Nov, [facility] [place] [facility] [address] [id number] [place] [address] October, [facility] [place] [facility] [address] [id number] [place] [address] October, [facility] [place] [facility] [address] [id number] [place] [address] October, [facility] [place] [facility] [address] [id number] [place] [address] October, [facility] [place] [facility] [address] [id number] [place] [address] Sep, [facility] [place] [facility] [address] [id number] [place] [address] Sep, [facility] [place] [facility] [address] [id number] [place] [address] Jul, [facility] [place] [facility] [address] [id number] [place] [address] Jun, [facility] [place] [facility] [address] [id number] [place] [address] Jun, [facility] [place] [facility] [address] [id number] [place] [address] Jun, [facility] [place] [facility] [address] [id number] [place] [address] Jun, [facility] [place] [facility] [address] [id number] [place] [address] Jun, [facility] [place] [facility] [address] [id number] [place] [address] May, [facility] [place] [facility] [address] [id number] [place] [address] May, [facility] [place] [facility] [address] [id number] [place] [address] May, [facility] [address] [id number] [place] [address] May, [facility] [place] [facility] [address] [id number] [place] [address] Feb, [facility] [address] [id number] [place] [address] Dec, [facility] [place] [facility] [address] [id number] [place] [address] Dec, [facility] [address] [id number] [place] [address] Dec, [facility] [place] [facility] [address] [id number] [place] [address] Dec, [facility] [address] [id number] [place] [address] Dec, [facility] [place] [facility] [address] [id number] [place] [address] Nov, [facility] [address] [id number] [place] [address] Nov, [facility] [place] [facility] [address] [id number] [place] [address] Nov, [facility] [address] [id number] [address] Nov, [facility] [place] [facility] [address] [id number] [place] [address] October, [facility] [place] [facility] [address] [id number] [place] [address] October, [facility] [place] [facility] [address] [id number] [place] [address] October, [facility] [place] [facility] [address] [id number] [place] [address] Aug, [facility] [place] [facility] [address] [id number] [place] [address] Aug, [facility] [place] [facility] [address] [id number] [place] [address] Jul, [facility] [place] [facility] [address] [id number] [place] [address] Jun, [facility] [place] [facility] [address] [id number] [place] [address] Jun, [facility] [place] [facility] [address] [id number] [place] [address] May, [facility] [place] [facility] [address] [id number] [place] [address] May, [facility] [place] [facility] [address] [id number] [place] [address] May, [facility] [place] [facility] [address] [id number] [place] [address] May, [facility] [place] [facility] [address] [id number] [place] [address] May, [facility] [place] [facility] [address] [id number] [place] [address] May, [facility] [place] [facility] [address] [facility] [id number] [place] [address] May, [facility] [place] [facility] [address] [id number] [place] [address] Mar, [facility] [place] [facility] [address] [id number] [place] [address] Mar, [facility] [place] [facility] [address] [id number] [place] [address] Mar, [facility] [place] [facility] [address] [id number] [place] [address] Feb, [facility] [place] [facility] [address] [id number] [place] [address] 08 Feb, 2012 [facility] [place] [facility] [address] [id number] [place] [address] 05 Feb, 2011 [facility] [place] [facility] [address] [id number] [place] [address] Feb, [facility] [place] [facility] [address] [id number] [place] [address] Feb, [facility] [place] [facility] [address] [id number] [place] [address] Feb, [facility] [place] [facility] [address] [id number] [place] [address] Jan, [facility] [place] [facility] [address] [id number] [place] [address] Jan, [facility] [place] [facility] [address] [id number] [place] [address] Jan, [facility] [place] [facility] [address] [id number] [place] [address] Jan, [facility] [place] [facility] [address] [id number] [place] [address] Jan, [facility] [place] [facility] [address] [id number] [place] [address] Jan, [facility] [place] [facility] [address] [id number] [place] [address] Jan, [facility] [place] [facility] [address] [id number] [place] [address] Jan, [facility] [place] [facility] [address] [id number] [place] [address] Jan, [facility] [place] [facility] [address] [id number] [place] [address] Jan, [facility] [place] [facility] [address] [id number] [place] [address] Jan, [facility] [place] [facility] [address] [id number] [place] [address] Jan, [facility] [place] [facility] [address] [id number] [place] [address] Dec, [facility] [place] [facility] [address] [id number] [place] [address] Dec, [facility] [place] [facility] [address] [id number] [place] [address] Dec, [facility] [place] [facility] [address] [id number] [place] [address] Dec, [facility] [place] [facility] [address] [id number] [place] [address] Dec, [facility] [place] [facility] [address] [id number] [place] [address] Dec, [facility] [place] [facility] [address] [id number] [place] [address] Nov, [facility] [place] [facility] [address] [id number] [place] [address] Nov, [facility] [place] [facility] [address] [id number] [place] [address] Nov, [facility] [place] [facility] [address] [id number] [place] [address] Nov, [facility] [place] [facility] [address] [id number] [place] [address] Nov, [facility] [place] [facility] [address] [id number] [place] [address] October, [facility] [place] [facility] [address] [id number] [place] [address] October, [facility] [place] [facility] [address] [id number] [place] [address] October, [facility] [place] [facility] [address] [id number] [place] [address] October, [facility] [address] [address] October, [facility] [address] [address] October, [facility] [address] [facility] [id number] [address] October, [facility] [address] [address] October, [facility] [address] [facility] [id number] [address] October, [facility] [address] [address] October, [facility] [address] [address] October, [facility] [address] [address] October, [facility] [address] [address] Sep, [facility] [address] [address] Sep, [facility] [id number] [address] Sep, IMMUNIZATIONS No Known Immunizations SOCIAL HISTORY Never Assessed REASON FOR VISIT [facility] [place] PLAN OF CARE [...] History chest pain Hospitalization History [place] [id number]
--- OUTSIDE RECORDS SUMMARY | 2018-12-27 21:43 | XMS REPORT ---
Author Author Migration, Doctor Organization [facility] Address Unknown Phone Unavailable Care Team Providers Care Rehab Director Name Role Phone Migration, Doctor Unavailable Unavailable PROBLEMS Type Condition ICD9-CM Code MZN67-DQ Code Onset Dates Condition Status SNOMED Code Problem Hypothyroidism, unspecified type E03.9 Active 77620802 Problem Moderate persistent asthma with acute exacerbation J45.41 Active 180658180655483 Problem Moderate persistent asthma without complication J45.40 Active 189104722 Problem Hypothyroidism (acquired) E03.9 Active 092809833 Problem Essential hypertension I10 Active 45887725 Problem Seasonal allergic rhinitis due to pollen J30.1 Active [id number] ALLERGIES No Information ENCOUNTERS Encounter Location Date Diagnosis [facility] [address] [address] Jun, [facility] [id number] [place] [address] Jun, [facility] [address] [address] Apr, Acute pancreatitis, unspecified complication status, unspecified pancreatitis type K85.90 ; Dysuria R30.0 ; Hypothyroidism, unspecified type E03.9 and Moderate persistent asthma with acute exacerbation J45.41 [facility] [id number] [place] [address] Mar, [facility] [address] [address] Mar, Hypothyroidism, unspecified type E03.9 [facility] [address] [address] Mar, Seasonal allergic rhinitis due to pollen J30.1 ; Moderate persistent asthma without complication J45.40 and Essential hypertension I10 [facility] [address] [address] Feb, [facility] [id number] [place] [address] Jan, Moderate persistent asthma with acute exacerbation J45.41 [facility] [id number] [place] [address] Jan, [facility] [id number] [place] [address] May, Severe persistent asthma without complication J45.50 ; Chronic nonseasonal allergic rhinitis due to other allergen J30.89 and Hypothyroidism, unspecified type E03.9 [facility] [address] [address] Apr, [facility] [id number] [place] [address] Apr, [facility] [address] [address] Apr, [facility] [id number] [place] [address] Mar, Hypothyroidism (acquired) E03.9 [facility] [id number] [place] [address] Mar, [facility] [id number] [place] [address] Mar, Chest wall pain R07.89 [facility] [id number] [place] [address] Mar, [facility] [id number] [place] [address] Dec, Moderate persistent asthma without complication J45.40 [facility] [id number] [place] [address] Nov, [facility] [id number] [place] [address] Aug, Moderate persistent asthma with acute exacerbation J45.41 and Hypothyroidism, unspecified type E03.9 [facility] [id number] [address] Aug, Moderate persistent asthma with acute exacerbation J45.41 and Hypothyroidism, unspecified type E03.9 [facility] [id number] [address] Sep, [facility] [id number] [address] Sep, [facility] [address] [place] [address] Jul, [facility] [id number] [place] [address] Jul, [facility] [address] [place] [address] Jun, [facility] [address] [address] Jun, [facility] [address] [address] Jun, [facility] [address] [address] Jun, [facility] [address] [place] [address] Jun, [facility] [address] [address] Jun, [facility] [address] [place] [address] May, [facility] [address] [address] May, [facility] [address] [place] [address] Apr, [facility] [address] [address] Apr, [facility] [address] [place] [facility] [place] [address] Apr, [facility] [id number], [place] [address] Apr, [facility] [address] [place] [address] Feb, [facility] [id number], [place] [address] Feb, [facility] [address] [place] [address] Feb, [facility] [id number], [place] [address] Feb, [facility] [address] [place] [address] Jan, [facility] [address] [address] Jan, [facility] [address] [place] [address] Dec, [facility] [id number], [place] [address] Dec, [facility] [address] [place] [address] Dec, [facility] [address] [place] [address] Dec, [facility] [place] [facility] [id number] [address] Dec, [facility] [place] [facility] [id number], [place] [address] Dec, [facility] [place] [facility] [id number], [place] [address] Nov, [facility] [place] [facility] [id number], [place] [address] Nov, [facility] [place] [facility] [id number], [place] [address] Nov, [facility] [place] [facility] [address] [id number] [place] [address] Nov, [facility] [place] [facility] [address] [id number] [place] [address] October, [facility] [place] [facility] [address] [id number] [place] [address] October, [facility] [place] [facility] [address] [id number] [place] [address] October, [facility] [place] [facility] [address] [id number] [place] [address] October, [facility] [place] [facility] [address] [id number] [place] [address] Sep, [facility] [place] [facility] [address] [id number] [place] [address] Sep, [facility] [place] [facility] [address] [id number] [place] [address] Jul, [facility] [place] [facility] [address] [id number] [place] [address] Jun, [facility] [place] [facility] [address] [id number] [place] [address] Jun, [facility] [place] [facility] [address] [id number] [place] [address] Jun, [facility] [place] [facility] [address] [id number] [place] [address] Jun, [facility] [place] [facility] [address] [id number] [place] [address] Jun, [facility] [place] [facility] [address] [id number] [place] [address] May, [facility] [place] [facility] [address] [id number] [place] [address] May, [facility] [place] [facility] [address] [id number] [place] [address] May, [facility] [address] [id number] [place] [address] May, [facility] [place] [facility] [address] [id number] [place] [address] Feb, [facility] [address] [id number] [place] [address] Dec, [facility] [place] [facility] [address] [id number] [place] [address] Dec, [facility] [address] [id number] [place] [address] Dec, [facility] [place] [facility] [address] [id number] [place] [address] Dec, [facility] [address] [id number] [place] [address] Dec, [facility] [place] [facility] [address] [id number] [place] [address] Nov, [facility] [address] [id number] [place] [address] Nov, [facility] [place] [facility] [address] [id number] [place] [address] Nov, [facility] [address] [id number], [place] [address] Nov, [facility] [place] [facility] [address] [id number] [place] [address] October, [facility] [place] [facility] [address] [id number] [place] [address] October, [facility] [place] [facility] [address] [id number] [place] [address] October, [facility] [place] [facility] [address] [id number] [place] [address] Aug, [facility] [place] [facility] [address] [id number] [place] [address] Aug, [facility] [place] [facility] [address] [id number] [place] [address] Jul, [facility] [place] [facility] [address] [id number] [place] [address] Jun, [facility] [place] [facility] [address] [id number] [place] [address] Jun, [facility] [place] [facility] [address] [id number] [place] [address] May, [facility] [place] [facility] [address] [id number] [place] [address] May, [facility] [place] [facility] [address] [id number] [place] [address] May, [facility] [place] [facility] [address] [id number] [place] [address] May, [facility] [place] [facility] [address] [id number] [place] [address] May, [facility] [place] [facility] [address] [id number] [place] [address] May, [facility] [place] [facility] [address] [facility] [id number] [place] [address] May, [facility] [place] [facility] [address] [id number] [place] [address] Mar, [facility] [place] [facility] [address] [id number] [place] [address] Mar, [facility] [place] [facility] [address] [id number] [place] [address] Mar, [facility] [place] [facility] [address] [id number] [place] [address] Feb, [facility] [place] [facility] [address] [id number] [place] [address] 08 Feb, 2012 [facility] [place] [facility] [address] [id number] [place] [address] 05 Feb, 2011 [facility] [place] [facility] [address] [id number] [place] [address] Feb, [facility] [place] [facility] [address] [id number] [place] [address] Feb, [facility] [place] [facility] [address] [id number] [place] [address] Feb, [facility] [place] [facility] [address] [id number] [place] [address] Jan, [facility] [place] [facility] [address] [id number] [place] [address] Jan, [facility] [place] [facility] [address] [id number] [place] [address] Jan, [facility] [place] [facility] [address] [id number] [place] [address] Jan, [facility] [place] [facility] [address] [id number] [place] [address] Jan, [facility] [place] [facility] [address] [id number] [place] [address] Jan, [facility] [place] [facility] [address] [id number] [place] [address] Jan, [facility] [place] [facility] [address] [id number] [place] [address] Jan, [facility] [place] [facility] [address] [id number] [place] [address] Jan, [facility] [place] [facility] [address] [id number] [place] [address] Jan, [facility] [place] [facility] [address] [id number] [place] [address] Jan, [facility] [place] [facility] [address] [id number] [place] [address] Jan, [facility] [place] [facility] [address] [id number] [place] [address] Dec, [facility] [place] [facility] [address] [id number] [place] [address] Dec, [facility] [place] [facility] [address] [id number] [place] [address] Dec, [facility] [place] [facility] [address] [id number] [place] [address] Dec, [facility] [place] [facility] [address] [id number] [place] [address] Dec, [facility] [place] [facility] [address] [id number] [place] [address] Dec, [facility] [place] [facility] [address] [id number] [place] [address] Nov, [facility] [place] [facility] [address] [id number] [place] [address] Nov, [facility] [place] [facility] [address] [id number] [place] [address] Nov, [facility] [place] [facility] [address] [id number] [place] [address] Nov, [facility] [place] [facility] [address] [id number] [place] [address] Nov, [facility] [place] [facility] [address] [id number] [place] [address] October, [facility] [place] [facility] [address] [id number] [place] [address] October, [facility] [place] [facility] [address] [id number] [place] [address] October, [facility] [place] [facility] [address] [id number] [place] [address] October, [facility] [address] [address] October, [facility] [address], [place] [address] October, [facility] [address] [facility] [id number], [place] [address] October, [facility] [address], [place] [address] October, [facility] [address] [facility] [id number], [place] [address] October, [facility] [address], [place] [address] October, [facility] [address], [place] [address] October, [facility] [address], [place] [address] October, [facility] [address], [place] [address] Sep, [facility] [address], [place] [address] Sep, [facility] [id number], [place] [address] Sep, IMMUNIZATIONS No Known Immunizations SOCIAL HISTORY Never Assessed REASON FOR VISIT [facility] PLAN OF CARE VITAL SIGNS MEDICATIONS Unknown [...] x4 Hospitalization History chest pain Hospitalization History [place] [address]
--- OUTSIDE RECORDS SUMMARY | 2018-12-27 21:49 | XMS REPORT | Continuity of Care Document ---
Author Organization Unknown Address Unknown Allergies Active Description Code Type Severity Reaction Onset Reported/Identified Relationship to Patient Clinical Status Yes NO KNOWN DRUG ALLERGIES NO KNOWN DRUG ALLERG UNKNOWN Yes NO KNOWN DRUG ALLERGIES UNKNOWN NO KNOWN DRUG ALLERG Yes No Known Drug Allergies [id number] Drug Allergy Unknown N/A 05/04/2011 Medications Medication Packaging Start Date Stop Date Route Dosage Sig ALBUTEROL SVN 2.5MG/3CC LIQ 2.5 MG (PROVENTIL YESI 2.5MG/3CC) MG 07/03/2016 07/03/2016 ONCE&2307 PREDNISONE TAB 20 MG (DELTASONE) MG 07/03/2016 07/03/2016 ONCE&2307 ONDANSETRON TAB 4 MG (ZOFRAN) MG 07/03/2016 07/03/2016 PRN ONCE PREDNISONE TAB 10 MG [...] 0 (ADACEL SYRINGE) ml 04/08/2018 04/08/2018 ONCE&1317 KETOROLAC VIAL INJ 60 MG/2CC (TORADOL VIAL) MG 09/07/2018 09/11/2018 Q6H&0600,1200,1800,2359 Problems Date Dx Coded Attending Type Code [...] R 578.1 Blood In Stool 10/05/2011 OMER BOYERN BOBBI R 599.70 Hematuria Unspecified 10/05/2011 OMER BOYERN BOBBI R 780.4 Dizziness And Giddiness 10/05/2011 OMER BOYERN BOBBI R 784.0 Headache 10/05/2011 OMER JAVA ENTERPRISE ARCHITECT, BOBBI R 790.4 Abnormal Lft (elevated) 10/05/2011 OMER JAVA ENTERPRISE ARCHITECT BOBBI R 799.22 Irritability 10/05/2011 OMER BOYERN BOBBI R V58.69 LONG-TERM (CURRENT) USE OF OTHER MEDICATIONS 10/05/2011 OMER JAVA ENTERPRISE ARCHITECT, BOBBI R 578.1 Blood In Stool 10/05/2011 OMER JAVA ENTERPRISE ARCHITECT, BOBBI R 599.70 Hematuria Unspecified 10/05/2011 OMER JAVA ENTERPRISE ARCHITECT, BOBBI R 780.4 Dizziness And Giddiness 10/05/2011 OMER JAVA ENTERPRISE ARCHITECT, BOBBI R 784.0 Headache 10/05/2011 OMER JAVA ENTERPRISE ARCHITECT, BOBBI R 790.4 Abnormal Lft (elevated) 10/05/2011 OMER JAVA ENTERPRISE ARCHITECT, BOBBI R 799.22 Irritability 10/05/2011 OMER JAVA ENTERPRISE ARCHITECT, BOBBI R V58.69 LONG-TERM (CURRENT) USE OF OTHER MEDICATIONS 10/05/2011 OMER JAVA ENTERPRISE ARCHITECT, BOBBI R 578.1 Blood In Stool 10/05/2011 OMER BOYERN BOBBI R 599.70 Hematuria Unspecified 10/05/2011 OMER JAVA ENTERPRISE ARCHITECT, BOBBI R 780.4 Dizziness And Giddiness 10/05/2011 OMER JAVA ENTERPRISE ARCHITECT, BOBBI R 784.0 Headache 10/05/2011 OMER BOYERN, BOBBI R 790.4 Abnormal Lft (elevated) 10/05/2011 OMER BOYERN, BOBBI R 799.22 Irritability 10/05/2011 OMER JAVA ENTERPRISE ARCHITECT, BOBBI R V58.69 LONG-TERM (CURRENT) USE OF [...] LONG-TERM (CURRENT) USE OF OTHER MEDICATIONS 10/12/2011 ANNEL PENA DOA K 300.00 AN ANXIETY UNSPEC 10/12/2011 BECKY DOANNELA K 300.00 AN ANXIETY UNSPEC 10/12/2011 300.00 [...] MENESES MD 300.00 AN ANXIETY UNSPEC 10/12/2011 ANNEL PENA DOA K 300.00 AN ANXIETY UNSPEC 10/15/2011 ANNEL PENA DOA K 242.90 HYPERTHYROIDISM 10/15/2011 BECKY PANCHAL BELKYS K 242.90 HYPERTHYROIDISM 10/15/2011 242.90 HYPERTHYROIDISM 10/15/2011 242.90 HYPERTHYROIDISM 10/15/2011 242.90 HYPERTHYROIDISM 10/15/2011 242.90 HYPERTHYROIDISM 10/15/2011 MICHELLE MOLINA APRN 242.90 HYPERTHYROIDISM 10/15/2011 BOBBI TELLO APRN R 242.90 HYPERTHYROIDISM 10/15/2011 BOBBI TELLO APRN 242.90 HYPERTHYROIDISM 10/15/2011 OMER JAVA ENTERPRISE ARCHITECT, BOBBI R 242.90 HYPERTHYROIDISM 10/15/2011 ZAIRA ROBERTS, KIANNA Renner 242.90 HYPERTHYROIDISM 10/15/2011 ZAIRA ROBERTS, KIANNA Renner 242.90 HYPERTHYROIDISM 10/15/2011 KIANNA MENESES MD 242.90 HYPERTHYROIDISM 10/15/2011 KIANNA MENESES MD 242.90 HYPERTHYROIDISM 10/15/2011 KIANNA MENESES MD 242.90 HYPERTHYROIDISM 10/15/2011 ANNEL PENA DOA K 242.90 HYPERTHYROIDISM 10/19/2011 ANNEL PENA DOA K 786.50 Chest Pain 10/19/2011 BECKY PANCHAL [...] PENA DOA K 786.50 Chest Pain 10/24/2011 ANNEL PENA DOA K 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00 TOX DIF GOITER NO CRISIS 03/15/2012 BELKYS PENA DO 461.9 SINUSITIS ACUTE 03/15/2012 BELKYS PENA DO 466.0 Bronchitis, Acute 03/15/2012 BELKYS PENA DO K 461.9 SINUSITIS ACUTE 03/15/2012 BELKYS PENA DO K 466.0 Bronchitis, Acute 03/15/2012 461.9 SINUSITIS ACUTE 03/15/2012 466.0 Bronchitis, Acute 03/15/2012 461.9 SINUSITIS ACUTE 03/15/2012 466.0 Bronchitis, Acute 03/15/2012 461.9 SINUSITIS ACUTE 03/15/2012 466.0 Bronchitis, Acute 03/15/2012 461.9 SINUSITIS ACUTE 03/15/2012 466.0 Bronchitis, Acute 03/15/2012 MICHELLE MOLINA APRN 461.9 SINUSITIS ACUTE 03/15/2012 MICHELLE MOLINA APRN 466.0 Bronchitis, Acute 03/15/2012 OMER JAVA ENTERPRISE ARCHITECT, BOBBI R 461.9 SINUSITIS ACUTE 03/15/2012 OMER JAVA ENTERPRISE ARCHITECT, BOBBI R 466.0 Bronchitis, Acute 03/15/2012 OMER JAVA ENTERPRISE ARCHITECT, BOBBI R 461.9 SINUSITIS ACUTE 03/15/2012 OMER JAVA ENTERPRISE ARCHITECT, BOBBI R 466.0 Bronchitis, Acute 03/15/2012 OMER JAVA ENTERPRISE ARCHITECT, BOBBI R 461.9 SINUSITIS ACUTE 03/15/2012 OMER JAVA ENTERPRISE ARCHITECT, BOBBI R 466.0 Bronchitis, Acute 03/15/2012 ZAIRA [...] ROBERTS, KIANNA Renner 466.0 Bronchitis, Acute 03/15/2012 PENA DO, BELKYS [...] BOBBI TELLO APRN R 244.9 HYPOTHYROIDISM 05/14/2012 KIANNA MENESES MD [...] MICHELLE MOLINA APRN 786.2 COUGH 06/13/2012 OMER JAVA ENTERPRISE ARCHITECT, BOBBI R 466.0 BRONCHITIS, ACUTE 06/13/2012 OMER JAVA ENTERPRISE ARCHITECT, BOBBI R 569.3 RECTAL BLEEDING 06/13/2012 OMER JAVA ENTERPRISE ARCHITECT, BOBBI R 786.07 WHEEZING 06/13/2012 OMER JAVA ENTERPRISE ARCHITECT, BOBBI R 786.09 DYSPNEA 06/13/2012 OMER JAVA ENTERPRISE ARCHITECT, BOBBI R 786.2 COUGH 06/13/2012 OMER JAVA ENTERPRISE ARCHITECT, BOBBI R 466.0 BRONCHITIS, ACUTE 06/13/2012 OMER JAVA ENTERPRISE ARCHITECT, BOBBI R 569.3 RECTAL BLEEDING 06/13/2012 OMER JAVA ENTERPRISE ARCHITECT, BOBBI R 786.07 WHEEZING 06/13/2012 OMER JAVA ENTERPRISE ARCHITECT, BOBBI R 786.09 DYSPNEA 06/13/2012 OMER JAVA ENTERPRISE ARCHITECT, BOBBI R 786.2 COUGH 06/13/2012 OMER JAVA ENTERPRISE ARCHITECT, BOBBI R 466.0 BRONCHITIS, ACUTE 06/13/2012 OMER JAVA ENTERPRISE ARCHITECT, BOBBI R 569.3 RECTAL BLEEDING 06/13/2012 OMER JAVA ENTERPRISE ARCHITECT, BOBBI R 786.07 WHEEZING 06/13/2012 OMER JAVA ENTERPRISE ARCHITECT, BOBBI R 786.09 DYSPNEA 06/13/2012 OMER JAVA ENTERPRISE ARCHITECT, BOBBI R 786.2 COUGH 06/13/2012 ZAIRA ROBERTS, [...] ZAIRA ROBERTS, KIANNA Renner 786.09 DYSPNEA 06/13/2012 KIANNA MENESES MD 786.2 [...] TELLO APRN R 786.50 CHEST PAIN 08/07/2012 OMER EASTMAN BOBBI R 786.50 CHEST PAIN 08/07/2012 OMER EASTMAN BOBBI R 786.50 CHEST PAIN 08/07/2012 KIANNA MENESES MD 786.50 CHEST PAIN 08/07/2012 KIANNA MENESES MD 786.50 CHEST PAIN 08/07/2012 KIANNA MENESES MD 786.50 CHEST PAIN 08/07/2012 KIANNA MENESES MD 786.50 CHEST PAIN 08/07/2012 KIANNA MENESES MD 786.50 CHEST PAIN 11/12/2012 EMILY LEACH MD, FACC FACP CCDS Ot 244.9 HYPOTHYROIDISM NOS 11/12/2012 EMILY LEACH MD, FACC FACP CCDS Ot 272.4 HYPERLIPIDEMIA NEC/NOS 11/12/2012 EMILY LEACH MD, FACC FACP CCDS Ot 311 DEPRESSIVE DISORDER NEC 11/12/2012 EMILY LEACH MD, FACC FACP CCDS Ot 401.9 HYPERTENSION NOS 11/12/2012 EMILY LEACH MD, FACC FACP CCDS Ot 786.50 CHEST PAIN NOS 11/12/2012 EMILY LEACH MD, FACC FACP CCDS Ot V17.49 FAMILY HISTORY OF OTHER CARDIOVASCULAR D 11/12/2012 BUBBA MD FACC, ALI FACP CCDS Ot V58.69 OTH MED,LT,CURRENT [...] EVETTE CERVANTES 276.8 HYPOPOTASSEMIA 07/04/2016 EVETTE CERVANTES 466.0 ACUTE BRONCHITIS 07/04/2016 EVETTE CERVANTES 493.92 [...] EDWIN PETER MD Ot R05 COUGH 05/11/2017 ROME ROBERTS, EDWIN Renner Ot Z20.811 CONTACT WITH AND (SUSPECTED) EXPOSURE TO 05/11/2017 Ot 242.00 TOX DIF GOITER NO CRISIS 05/11/2017 Ot 242.00 TOX DIF GOITER NO CRISIS 05/11/2017 Ot 242.90 THYROTOX NOS NO CRISIS 05/11/2017 Ot 242.00 TOX DIF GOITER NO CRISIS 05/11/2017 JIMMIE ROBERTS, SARAHI Ot 397.0 TRICUSPID VALVE DISEASE 05/11/2017 JIMMIE ROBERTS, SAARHI Ot 424.0 MITRAL VALVE DISORDER 05/11/2017 JIMMIE [...] MD Ot 424.0 MITRAL VALVE DISORDER 06/25/2017 JIMMIE ROBERTS, SARAHI Ot 786.50 CHEST PAIN NOS 06/25/2017 BUBBA ROBERTS FACC, ALI FACP CCDS Ot 786.50 CHEST PAIN NOS 06/25/2017 CHELY PETERS APRN Ot J45.909 UNSPECIFIED ASTHMA, UNCOMPLICATED 06/25/2017 CHELSY MORALES Ot E03.9 HYPOTHYROIDISM, UNSPECIFIED 06/25/2017 CHELSY MORALES METAL CONTROL WORKER Ot J30.89 OTHER ALLERGIC RHINITIS 06/25/2017 CHELSY MORALES METAL CONTROL WORKER Ot J45.50 SEVERE PERSISTENT ASTHMA, UNCOMPLICATED 07/03/2017 CHELY PETERS JAVA ENTERPRISE ARCHITECT Ot J42 UNSPECIFIED CHRONIC BRONCHITIS 07/03/2017 CHELY PETERS JAVA ENTERPRISE ARCHITECT Ot J45.909 UNSPECIFIED ASTHMA, UNCOMPLICATED 07/08/2017 CHELY PETERS JAVA ENTERPRISE ARCHITECT Ot J42 UNSPECIFIED CHRONIC BRONCHITIS 07/08/2017 FRANCHELY MARSH JAVA ENTERPRISE ARCHITECT Ot J45.909 UNSPECIFIED ASTHMA, UNCOMPLICATED 07/19/2017 CHELY PETERS JAVA ENTERPRISE ARCHITECT Ot J42 UNSPECIFIED CHRONIC BRONCHITIS 07/19/2017 CHELY PETERS JAVA ENTERPRISE ARCHITECT Ot J45.909 UNSPECIFIED ASTHMA, UNCOMPLICATED 07/27/2017 KEIRA PENA APRN Ot E05.90 THYROTOXICOSIS, UNSP WITHOUT THYROTOXIC 07/27/2017 KEIRA PENA APRN Ot F41.9 ANXIETY DISORDER, UNSPECIFIED 07/27/2017 KEIRA PENA APRN Ot J45.901 UNSPECIFIED ASTHMA WITH (ACUTE) EXACERBA 07/27/2017 KEIRA PENA JAVA ENTERPRISE ARCHITECT Ot R05 COUGH 07/27/2017 KEIRA PENA APRN Ot Z79.52 HALFWAY (CURRENT) USE OF SYSTEMIC STER 07/27/2017 Ot [...] 786.50 CHEST PAIN NOS 07/27/2017 CHELY PETERS JAVA ENTERPRISE ARCHITECT Ot J42 UNSPECIFIED CHRONIC BRONCHITIS 07/27/2017 CHELY PETERS JAVA ENTERPRISE ARCHITECT Ot J45.909 UNSPECIFIED ASTHMA, UNCOMPLICATED 07/27/2017 CHELY PETERS JAVA ENTERPRISE ARCHITECT Ot J45.909 UNSPECIFIED ASTHMA, UNCOMPLICATED 07/27/2017 CHELSY MORALES METAL CONTROL WORKER Ot E03.9 HYPOTHYROIDISM, UNSPECIFIED 07/27/2017 ANDREWCHELSY METAL CONTROL WORKER Ot J30.89 OTHER ALLERGIC RHINITIS 07/27/2017 ANDREWCHELSY METAL CONTROL WORKER Ot J45.50 SEVERE PERSISTENT ASTHMA, UNCOMPLICATED 07/30/2017 KEIRA PENA JAVA ENTERPRISE ARCHITECT Ot E05.90 THYROTOXICOSIS, UNSP WITHOUT THYROTOXIC 07/30/2017 KEIRA EPNA APRN Ot F41.9 ANXIETY DISORDER, UNSPECIFIED 07/30/2017 KEIRA PENA JAVA ENTERPRISE ARCHITECT Ot J45.901 UNSPECIFIED ASTHMA WITH (ACUTE) EXACERBA 07/30/2017 KEIRA PENA APRN Ot R05 COUGH 07/30/2017 KEIRA PENA APRN Ot Z79.52 HALFWAY (CURRENT) USE OF SYSTEMIC STER 11/17/2017 KEIRA PENA APRN Ot E03.9 HYPOTHYROIDISM, UNSPECIFIED 11/17/2017 KEIRA PENA APRN Ot F41.9 ANXIETY DISORDER, UNSPECIFIED 11/17/2017 KEIRA PENA APRN Ot J45.901 UNSPECIFIED ASTHMA WITH (ACUTE) EXACERBA 11/17/2017 KEIRA PENA APRN Ot R06.02 SHORTNESS OF BREATH 11/17/2017 KEIRA PENA APRN Ot Z79.52 HALFWAY (CURRENT) USE OF SYSTEMIC STER 11/17/2017 KEIRA PENA APRN Ot Z98.890 OTHER SPECIFIED POSTPROCEDURAL STATES 01/20/2018 EVETTE CERVANTES W 465.8 ACUTE UPPER RESPIRATORY INFECTIONS OF OTHER MULTIPLE SITES 01/20/2018 EVETTE CERVANTES 491.21 OBSTRUCTIVE CHRONIC BRONCHITIS WITH (ACUTE) EXACERBATION 01/20/2018 EVETTE CERVANTES J06.9 ACUTE UPPER RESPIRATORY INFECTION, UNSPECIFIED 01/20/2018 EVETTE CERVANTES J44.1 CHRONIC OBSTRUCTIVE PULMONARY DISEASE W (ACUTE) EXACERBATION 02/19/2018 Richmond Love 491.20 OBSTRUCTIVE CHRONIC BRONCHITIS, WITHOUT EXACERBATION 02/19/2018 [place] Love J44.9 CHRONIC OBSTRUCTIVE PULMONARY DISEASE, UNSPECIFIED 04/03/2018 CHELY PETERS JAVA ENTERPRISE ARCHITECT Ot J42 UNSPECIFIED CHRONIC BRONCHITIS 04/03/2018 CHELY PETERS JAVA ENTERPRISE ARCHITECT Ot J45.909 UNSPECIFIED ASTHMA, UNCOMPLICATED 04/04/2018 KEIRA PENA JAVA ENTERPRISE ARCHITECT Ot E03.9 HYPOTHYROIDISM, UNSPECIFIED 04/04/2018 KEIRA PENA JAVA ENTERPRISE ARCHITECT Ot F41.9 ANXIETY DISORDER, UNSPECIFIED 04/04/2018 KEIRA PENA JAVA ENTERPRISE ARCHITECT Ot J45.901 UNSPECIFIED ASTHMA WITH (ACUTE) EXACERBA 04/04/2018 KEIRA PENA JAVA ENTERPRISE ARCHITECT Ot R06.02 SHORTNESS OF BREATH 04/08/2018 [place] Love A 883.1 OPEN WOUND OF FINGERS, COMPLICATED 04/08/2018 [place] Love S61.012A LACERATION W/O FB OF LEFT THUMB [...] FACTORS, SUB 04/11/2018 CINTHIA MCCLURE Ot Z79.51 WATERMELON INSPECTOR (CURRENT) USE OF INHALED STERO 04/11/2018 CINTHIA MCCLURE Ot Z79.52 HALFWAY (CURRENT) USE OF SYSTEMIC STER 04/11/2018 CINTHIA [...] FACTORS, SUB 04/15/2018 CINTHIA MCCLURE Ot Z79.51 HALFWAY (CURRENT) USE OF INHALED STERO 04/15/2018 CINTHIA MCCLURE Ot Z79.52 HALFWAY (CURRENT) USE OF SYSTEMIC STER 04/15/2018 CINTHIA MCCLURE Ot Z98.890 OTHER SPECIFIED POSTPROCEDURAL STATES 05/21/2018 BUBBA ROBERTS [facility], [facility] CCDS Ot 786.50 CHEST PAIN NOS 05/21/2018 CHELY PETERS JAVA ENTERPRISE ARCHITECT Ot J42 UNSPECIFIED CHRONIC BRONCHITIS 05/21/2018 CHELY PETERS JAVA ENTERPRISE ARCHITECT Ot J45.909 UNSPECIFIED ASTHMA, UNCOMPLICATED 05/21/2018 CHELY PETERS JAVA ENTERPRISE ARCHITECT Ot J45.909 UNSPECIFIED ASTHMA, UNCOMPLICATED 05/21/2018 CHELSY MORALES METAL CONTROL WORKER Ot E03.9 HYPOTHYROIDISM, UNSPECIFIED 05/21/2018 CHELSY MORALES METAL CONTROL WORKER Ot J30.89 OTHER ALLERGIC RHINITIS 05/21/2018 CHELSY MORALES METAL CONTROL WORKER Ot J45.50 SEVERE PERSISTENT ASTHMA, UNCOMPLICATED 07/06/2018 BUBBA ROBERTS [facility], [facility] CCDS Ot 786.50 CHEST PAIN NOS 07/06/2018 CHELY PETERS JAVA ENTERPRISE ARCHITECT Ot J42 UNSPECIFIED CHRONIC BRONCHITIS 07/06/2018 CHELY PETERS JAVA ENTERPRISE ARCHITECT Ot J45.909 UNSPECIFIED ASTHMA, UNCOMPLICATED 07/06/2018 CHELY PETERS JAVA ENTERPRISE ARCHITECT Ot J45.909 UNSPECIFIED ASTHMA, UNCOMPLICATED 07/06/2018 CHELSY MORALES METAL CONTROL WORKER Ot E03.9 HYPOTHYROIDISM, UNSPECIFIED 07/06/2018 CHELSY MORALES METAL CONTROL WORKER Ot J30.89 OTHER ALLERGIC RHINITIS 07/06/2018 CHELSY MORALES METAL CONTROL WORKER Ot J45.50 SEVERE PERSISTENT ASTHMA, UNCOMPLICATED 07/06/2018 EDWIN PETER MD Ot E03.9 HYPOTHYROIDISM, UNSPECIFIED 07/06/2018 EDWIN PETER MD Ot F41.9 ANXIETY DISORDER, UNSPECIFIED 07/06/2018 EDWIN PETER MD Ot J11.1 FLU DUE TO UNIDENTIFIED INFLUENZA VIRUS 07/06/2018 EDWIN PETER MD Ot J44.1 CHRONIC OBSTRUCTIVE PULMONARY DISEASE W 07/06/2018 EDWIN PETER MD Ot R11.2 NAUSEA WITH VOMITING, UNSPECIFIED 07/06/2018 EDWIN PETER MD Ot Z79.51 WATERMELON INSPECTOR (CURRENT) USE OF INHALED STERO 07/06/2018 EDWIN PETER MD Ot Z79.52 HALFWAY (CURRENT) USE OF SYSTEMIC STER 07/06/2018 EDWIN PETER MD Ot 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 07/06/2018 BUBBA ROBERTS FAC, EMILY CORRALES CCDS Ot 786.50 CHEST PAIN NOS 07/06/2018 CHELY PETERS APRN Ot J42 UNSPECIFIED CHRONIC BRONCHITIS 07/06/2018 CHELY PETERS APRN Ot J45.909 UNSPECIFIED ASTHMA, UNCOMPLICATED 07/06/2018 CHELY PETERS APRN Ot J45.909 UNSPECIFIED ASTHMA, UNCOMPLICATED 07/06/2018 CHELSY MORALES METAL CONTROL WORKER Ot E03.9 HYPOTHYROIDISM, UNSPECIFIED 07/06/2018 CHELSY MORALES METAL CONTROL WORKER Ot J30.89 OTHER ALLERGIC RHINITIS 07/06/2018 CHELSY MORALESP Ot J45.50 SEVERE PERSISTENT ASTHMA, UNCOMPLICATED 07/09/2018 EDWIN PETER MD Ot E03.9 HYPOTHYROIDISM, UNSPECIFIED 07/09/2018 EDWIN PETER MD Ot F41.9 ANXIETY DISORDER, UNSPECIFIED 07/09/2018 EDWIN PETER MD Ot J11.1 FLU DUE TO UNIDENTIFIED INFLUENZA VIRUS 07/09/2018 EDWIN PETER MD Ot J44.1 CHRONIC OBSTRUCTIVE PULMONARY DISEASE W 07/09/2018 EDWIN PETER MD Ot R11.2 NAUSEA WITH VOMITING, UNSPECIFIED 07/09/2018 EDWIN PETER MD Ot Z79.51 HALFWAY (CURRENT) USE OF INHALED STERO 07/09/2018 EDWIN PETER MD Ot Z79.52 HALFWAY (CURRENT) USE OF SYSTEMIC STER 07/09/2018 EDWIN PETER MD Ot 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 08/16/2018 EDWIN PETER MD Ot E03.9 HYPOTHYROIDISM, UNSPECIFIED 08/16/2018 EDWIN PETER MD Ot F41.9 ANXIETY DISORDER, UNSPECIFIED 08/16/2018 EDWIN PETER MD Ot G47.30 SLEEP APNEA, UNSPECIFIED 08/16/2018 EDWIN PETER MD Ot I10 ESSENTIAL (PRIMARY) HYPERTENSION 08/16/2018 EDWIN PETER MD Ot J10.1 FLU DUE TO OTH IDENT INFLUENZA VIRUS W O 08/16/2018 EDWIN PETER MD Ot J44.9 CHRONIC OBSTRUCTIVE PULMONARY DISEASE, U 08/16/2018 EDWIN PETER MD Ot R05 COUGH 08/16/2018 EDWIN PETER MD, Ot Z79.51 WATERMELON INSPECTOR (CURRENT) USE OF INHALED STERO 08/16/2018 EDWIN PETER MD, Ot Z79.52 HALFWAY (CURRENT) USE OF SYSTEMIC STER 08/16/2018 EDWIN PETER MD, Ot 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 09/07/2018 LEISURE, PAULINAA W 724.3 SCIATICA 09/07/2018 LEISURE, LYNIETA W M54.32 SCIATICA, LEFT SIDE 12/27/2018 BUBBA ROBERTS FAC, EMILY CORRALES CCDS Ot 786.50 CHEST PAIN NOS 12/27/2018 CHELY PETERS APRN Ot J42 UNSPECIFIED CHRONIC BRONCHITIS 12/27/2018 CHELY PETERS APRN Ot J45.909 UNSPECIFIED ASTHMA, UNCOMPLICATED 12/27/2018 CHELY PETERS APRN Ot J45.909 UNSPECIFIED ASTHMA, UNCOMPLICATED 12/27/2018 CHELSY MORALES Ot E03.9 HYPOTHYROIDISM, UNSPECIFIED 12/27/2018 CHELSY MORALES Ot J30.89 OTHER ALLERGIC RHINITIS 12/27/2018 CHELSY MORALES Ot J45.50 SEVERE PERSISTENT ASTHMA, UNCOMPLICATED Procedures Code Description [place] [address] ROUTINE VENIPUNCTURE 05/13/2012 46056 THERAPUTIC INJ SQ/IM 05/13/2012 J1040 DEPO MEDROL 80 MG INJ 05/13/2012 20117 TSH 05/14/2012 07243 XRAY CHEST 2 VIEW 06/13/2012 LIZETT KIDD 06/13/2012 63775 ROUTINE VENIPUNCTURE 08/07/2012 10516 XRAY CHEST 2 VIEW 08/07/2012 01161 CMP 08/07/2012 14688 LIPID PANEL 08/07/2012 39032 BNP 08/07/2012 27040 TSH 08/07/2012 75266 CBC 08/07/2012 44874 CRP HS (CARDIO) 08/07/2012 16868 EKG, TRACING (IN-HOUSE) 08/07/2012 55259 PULMONARY FUNCTION TEST (IN-HOUSE) 08/07/2012 SARAHI CORONA 08/07/2012 05071 ECHO 2D 10/23/2012 76442 ROUTINE VENIPUNCTURE 11/15/2012 36516 TSH 11/15/2012 30276 OXIMETRY 11/15/2012 45195 OXIMETRY 11/22/2012 PULMONARY NUDNAVI BYRNEUS 11/22/2012 83057 OXIMETRY 12/13/2012 33906 OXIMETRY 12/17/2012 00820 ROUTINE VENIPUNCTURE 06/06/2013 33550 INFLUENZA A & B (IN-HOUSE) 06/06/2013 82069 UA W/ CULTURE IF INDICATED 06/06/2013 84222 CBC 06/06/2013 71074 CMP 06/06/2013 7819542 GFR CALC (RESULT ONLY) 06/06/2013 04947 LIPASE 06/06/2013 84564 BNP 06/06/2013 95518 OXIMETRY 07/17/2013 Cardiolog Emily Leach 07/17/2013 11425 EKG, TRACING (IN-HOUSE) 09/24/2013 08545 ECHO 2D 10/08/2013 45798 XRAY CHEST 2 VIEW 10/22/2013 92661 OXIMETRY 01/19/2014 07282 ROUTINE VENIPUNCTURE 02/27/2014 24851 TSH 02/27/2014 Results Test Result Range CBC with Auto Diff - 07/03/16 23:10 Baso% 0.70 % 0.00-2.50 Eos 0.7 K/uL 0.0-0.7 Eos% 12.7 % 0.0-7.0 Hct 43.0 % 42.0-52.0 Hgb 14.6 g/dL 14.0-17.0 Lym 0.81 K/uL 0.60-3.40 Lym% 14.3 % 10.0-50.0 MCH 29.9 pg 27.0-31.2 MCHC 34.0 g/dL 32.0-36.0 MCV 87.9 fL 80.0-97.0 Bradford% 7.2 % 0.0-12.0 MPV 10.1 fL 7.4-10.0 Miguel% 65.1 % 37.0-80.0 Plt 227 K/uL 150-400 RBC 4.89 M/uL 4.20-5.40 RDW 12.0 % 11.6-14.8 WBC 5.68 K/uL 5.00-10.00 Miguel 3.70 K/uL 2.00-6.90 Bradford 0.4 K/uL 0.0-0.9 Baso 0.0 K/uL 0.0-0.2 [...] 5-8.5 Urine-Protein 1+ Negative Urine-RBC Negative Urine-Specific [place] >=1.030 1.000-1.030 Urine-WBC 2-5/HPF Urobilinogen 1.0 E.U./dL 0.2-1.0 Cardiac Panel - 10/09/16 22:06 CK 50 [...] Automated erythrocyte mean corpuscular hemoglobin concentration measurement (mass/volume) 33 g/dL 32-36 Automated erythrocyte distribution width ratio 12.6 % 10.0- 14.5 Automated blood platelet count (count/volume) 265 10*3/uL [...] Blood monocytes automated count (number/volume) 0.6 10*3 0.0- 1.0 Automated eosinophil count 1.5 10*3/uL 0.0-0.3 Automated [...] NR Blood erythrocyte morphology finding identification [facility] Comprehensive metabolic panel - 05/11/17 10:51 [...] Serum or plasma aspartate aminotransferase measurement (enzymatic activity/volume) 17 U/L 5-34 Serum or plasma alanine aminotransferase measurement (enzymatic activity/volume) 22 U/L 0-55 Serum or plasma protein measurement (mass/volume) 8.3 g/dL 6.4-8.2 Serum or plasma albumin measurement (mass/volume) 4.3 g/dL 3.2-4.5 Serum or plasma C reactive protein measurement (mass/volume) - 05/11/17 10:51 Serum or plasma C reactive protein measurement (mass/volume) 0.37 mg/dL 0.00-0.50 THYROID STIMULATING HORMONE - 05/31/17 10:09 THYROID STIMULATING HORMONE 3.54 u[iU]/mL 0.35-4.94 [facility] [place] GENERAL PROFILE - 05/31/17 10:09 [id number] SEE FOOTNOTE NRG Serum Alternaria alternata IgE antibody assay (units/volume) < % <0.35 Dog dander IgE ab RAST class [presence] in serum CLASS 0 NRG Serum dust mite specific IgE antibody assay 7.03 H <0.35 Serum mold allergen mix 1 (Alternaria alternata, Aspergillus fumigatus,Cladosporium herbarum and Pen 0.47 H <0.35 Serum [place] live oak IgE antibody assay (units/volume) < % <0.35 Serum [place] blue grass IgE antibody RAST class <0.35 <0.35 Serum [place] grass IgE antibody assay (units/volume) < % <0.35 Serum ragweed IgE antibody assay <0.35 <0.35 Serum cat dander IgE antibody assay (units/volume) < % <0.35 Serum dog dander specific IgE antibody assay < % <0.35 [place] CL CLASS 0 NRG [place] blue grass IgE ab [units/volume] in serum CLASS 0 NRG [place] grass IgE ab RAST class [presence] in serum CLASS 0 NRG Southern ragweed IgE ab RAST class [presence] in serum CLASS 0 NRG Cat dander IgE ab RAST class [presence] in serum CLASS 0 NRG [place] house dust mite IgE ab RAST class [presence] in serum CLASS 3 NRG ALT TEN CL CLASS 0 NRG Cladosporium herbarum IgE ab RAST class [presence] in serum CLASS 1 NRG Serum white elm IgE antibody assay (units/volume) < % <0.35 [place] CL CLASS 0 NRG Serum [...] Automated erythrocyte mean corpuscular hemoglobin concentration measurement (mass/volume) 34 g/dL 32-36 Automated erythrocyte distribution width ratio 12.6 % 10.0- 14.5 Automated blood platelet count (count/volume) 238 10*3/uL [...] Blood monocytes automated count (number/volume) 0.7 10*3 0.0- 1.0 Automated eosinophil count 0.2 10*3/uL 0.0-0.3 Automated [...] Serum or plasma aspartate aminotransferase measurement (enzymatic activity/volume) 29 U/L 5-34 Serum or plasma alanine aminotransferase measurement (enzymatic activity/volume) 52 U/L 0-55 Serum or plasma protein measurement (mass/volume) 8.1 g/dL 6.4-8.2 Serum or plasma albumin measurement (mass/volume) 4.3 g/dL 3.2-4.5 Mycoplasma - 01/20/18 14:42 Mycoplasma Negative Negative Complete blood count (CBC) with automated white [...] Automated erythrocyte mean corpuscular hemoglobin concentration measurement (mass/volume) 33 g/dL 32-36 Automated erythrocyte distribution width ratio 12.8 % 10.0- 14.5 Automated blood platelet count (count/volume) 232 10*3/uL [...] Blood monocytes automated count (number/volume) 0.6 10*3 0.0- 1.0 Automated eosinophil count 1.2 10*3/uL 0.0-0.3 Automated [...] Serum or plasma aspartate aminotransferase measurement (enzymatic activity/volume) 20 U/L 5-34 Serum or plasma alanine aminotransferase measurement (enzymatic activity/volume) 24 U/L 0-55 Serum or plasma protein measurement (mass/volume) 8.4 g/dL 6.4-8.2 Serum or plasma albumin measurement (mass/volume) 4.8 g/dL 3.2-4.5 Influenza virus A and B antigen detection - 07/06/18 01:15 CALL POSITIVES (F1 HELP) CALLED TO [facility] AT [address] [facility] FLU RESULT POSITIVE FOR INFLUENZA B ANTIGEN, NEG FOR A ANTIGEN, BY [facility] Complete blood count (CBC) with [...] Automated erythrocyte mean corpuscular hemoglobin concentration measurement (mass/volume) 33 g/dL 32-36 Automated erythrocyte distribution width ratio 12.0 % 10.0- 14.5 Automated blood platelet count (count/volume) 295 10*3/uL [...] Blood monocytes automated count (number/volume) 0.7 10*3 0.0- 1.0 Automated eosinophil count 0.7 10*3/uL 0.0-0.3 Automated [...] Serum or plasma aspartate aminotransferase measurement (enzymatic activity/volume) 16 U/L 5-34 Serum or plasma alanine aminotransferase measurement (enzymatic activity/volume) 15 U/L 0-55 Serum or plasma protein measurement (mass/volume) 7.5 g/dL 6.4-8.2 Serum or plasma albumin measurement (mass/volume) 4.2 g/dL 3.2-4.5 CALCIUM CORRECTED 9.5 mg/dL 8.5-10.1 Serum or plasma C reactive protein measurement (mass/volume) - 07/06/18 01:20 Serum or plasma C reactive protein measurement (mass/volume) 2.40 mg/dL 0.00-0.50 Complete urinalysis with reflex to culture - 08/16/18 13:01 Urine color determination YELLOW NRG Urine clarity determination CLEAR NRG Urine pH measurement by test strip 6 5-9 Specific gravity of urine by test strip 1.020 1.016-1.022 Urine protein assay by test strip, semi-quantitative 1+ NEGATIVE Urine glucose detection by automated test strip NEGATIVE NEGATIVE Erythrocytes detection in urine sediment by light microscopy NEGATIVE NEGATIVE Urine ketones detection by automated test strip 2+ NEGATIVE Urine nitrite detection by test strip NEGATIVE NEGATIVE Urine total bilirubin detection by test strip NEGATIVE NEGATIVE Urine urobilinogen measurement by automated test strip (mass/volume) NORMAL NORMAL Urine leukocyte esterase detection by dipstick NEGATIVE NEGATIVE Automated urine sediment erythrocyte count by microscopy (number/high power field) NONE NRG Automated urine sediment leukocyte count by microscopy (number/high power field) NONE NRG Bacteria detection in urine sediment by light microscopy NEGATIVE NRG Crystals detection in urine sediment by light microscopy NONE NRG Casts detection in urine sediment by light microscopy NONE NRG Mucus detection in urine sediment by light microscopy MODERATE NRG Complete urinalysis with reflex to culture NO NRG Influenza virus A and B antigen detection - 08/16/18 13:25 CALL POSITIVES (F1 HELP) CALLED TO SEMINARY TO 1418/RLT NRG FLU RESULT POSITIVE FOR INFLUENZA B ANTIGEN, NEG FOR A ANTIGEN, BY IA NRG Complete blood count (CBC) with automated white blood cell (WBC) differential - 12/27/18 16:30 Blood leukocytes automated count (number/volume) 7.4 10*3/uL 4.3-11.0 Blood erythrocytes automated count (number/volume) 4.90 10*6/uL 4.35-5.85 Venous blood hemoglobin measurement (mass/volume) 14.6 g/dL 13.3-17.7 Blood hematocrit (volume fraction) 44 % 40-54 Automated erythrocyte mean corpuscular volume 90 [foz_us] 80-99 Automated erythrocyte mean corpuscular hemoglobin (mass per erythrocyte) 30 pg 25-34 Automated erythrocyte mean corpuscular hemoglobin concentration measurement (mass/volume) 33 g/dL 32-36 Automated erythrocyte distribution width ratio 13.0 % 10.0- 14.5 Automated blood platelet count (count/volume) 240 10*3/uL 130-400 Automated blood platelet mean volume measurement 10.3 [foz_us] 7.4-10.4 Automated blood neutrophils/100 leukocytes 49 % 42-75 Automated blood lymphocytes/100 leukocytes 32 % 12-44 Blood monocytes/100 leukocytes 6 % 0-12 Automated blood eosinophils/100 leukocytes 12 % 0-10 Automated blood basophils/100 leukocytes 1 % 0-10 Blood neutrophils automated count (number/volume) 3.6 10*3 1.8-7.8 Blood lymphocytes automated count (number/volume) 2.3 10*3 1.0-4.0 Blood monocytes automated count (number/volume) 0.5 10*3 0.0- 1.0 Automated eosinophil count 0.9 10*3/uL 0.0-0.3 Automated blood basophil count (count/volume) 0.1 10*3/uL 0.0-0.1 Comprehensive metabolic panel - 12/27/18 16:30 Serum or plasma sodium measurement (moles/volume) 140 mmol/L 135-145 Serum or plasma potassium measurement (moles/volume) 3.9 mmol/L 3.6-5.0 Serum or plasma chloride measurement (moles/volume) 108 mmol/L 98-107 Carbon dioxide 24 mmol/L 21-32 Serum or plasma anion gap determination (moles/volume) 8 mmol/L 5-14 Serum or plasma urea nitrogen measurement (mass/volume) 14 mg/dL 7-18 Serum or plasma creatinine measurement (mass/volume) 0.92 mg/dL 0.60-1.30 Serum or plasma urea nitrogen/creatinine mass ratio 15 NRG Serum or plasma creatinine measurement with calculation of estimated glomerular filtration rate > NRG Serum or plasma glucose measurement (mass/volume) 125 mg/dL 70-105 Serum or plasma calcium measurement (mass/volume) 9.5 mg/dL 8.5-10.1 Serum or plasma total bilirubin measurement (mass/volume) 0.3 mg/dL 0.1-1.0 Serum or plasma alkaline phosphatase measurement (enzymatic activity/volume) 103 U/L 40-136 Serum or plasma aspartate aminotransferase measurement (enzymatic activity/volume) 17 U/L 5-34 Serum or plasma alanine aminotransferase measurement (enzymatic activity/volume) 20 U/L 0-55 Serum or plasma protein measurement (mass/volume) 7.5 g/dL 6.4-8.2 Serum or plasma albumin measurement (mass/volume) 4.1 g/dL 3.2-4.5 CALCIUM CORRECTED 9.4 mg/dL 8.5-10.1 Serum or plasma C reactive protein measurement (mass/volume) - 12/27/18 16:30 Serum or plasma C reactive protein measurement (mass/volume) 0.22 mg/dL 0.00-0.50 Manual absolute plasma cell count - 12/27/18 16:30 Blood monocytes/100 leukocytes 4 % NRG Manual blood segmented neutrophils/100 leukocytes 51 % NRG Manual blood lymphocytes/100 leukocytes 26 % NRG Manual eosinophils/100 leukocytes in nose 14 % NRG Manual blood basophils/100 leukocytes 0 % NRG Blood lymphocytes variant/100 leukocytes 5 % NRG Blood erythrocyte morphology finding identification NORMAL NRG Encounters ACCT No. Visit Date/Time Discharge Status Pt. Type Provider Facility Loc./Unit Complaint [id number] 09/06/2018 22:09:00 09/07/2018 01:05:00 [id number] 04/08/2018 13:12:00 04/08/2018 14:24:00 DIS Outpatient [facility] ER [id number] 02/19/2018 16:36:00 02/19/2018 17:46:00 DIS Outpatient [facility] ER [id number] 01/20/2018 13:59:00 01/20/2018 16:00:00 DIS Outpatient [facility] ER [id number] 10/09/2016 21:45:00 10/09/2016 23:45:00 DIS Outpatient [facility] ER [id number] 07/03/2016 22:54:00 07/04/2016 00:25:00 [place] Outpatient [facility] [place] [id number] 07/03/2016 23:07:35 Document Registration [id number] 12/27/2018 16:22:00 12/27/2018 17:51:00 DIS Emergency KEIRA PENA APRN [facility] ER SOB [id number] 08/16/2018 12:17:00 08/16/2018 14:44:00 DIS Emergency EDWIN PETER MD [facility] ER COPD PAIN WITH URINATION STUFFY NOSE [id number] 07/06/2018 01:08:00 07/06/2018 02:38:00 DIS Emergency EDWIN PETER MD [facility] ER COPD,VOMITING,COUGHING,SOB [id number] 04/11/2018 21:27:00 04/11/2018 22:29:00 DIS Emergency CINTHIA MCCLURE [facility] ER FINGER LAC [id number] 04/02/2018 20:25:00 04/02/2018 23:21:00 DIS Outpatient KEIRA PENA JAVA ENTERPRISE ARCHITECT [facility] ER COPD BOTHERING HIM, R SHOULDER PAIN [id number] 11/17/2017 16:10:00 11/17/2017 17:53:00 DIS Emergency KEIRA PENA JAVA ENTERPRISE ARCHITECT [facility] ER COPD,"NEEDS BREATHING TREATMENT" [id number] 07/27/2017 13:26:00 07/27/2017 15:27:00 DIS Emergency KEIRA PENA JAVA ENTERPRISE ARCHITECT [facility] ER ASTHMA/SOB/COUGH/N/V/FEVER [id number] 07/02/2017 09:04:00 07/02/2017 23:59:59 CLS Outpatient CHELY PETERS APRN [facility] RT ASTHMA [id number] 06/19/2017 14:01:00 06/19/2017 23:59:59 CLS Preadmit CHELY PETERS APRN [facility] SLEEP G47.9 SLEEP DISORDER [id number] 06/10/2017 13:00:00 06/10/2017 13:39:00 DIS Outpatient CHELY PETERS APRN [facility] SLEEP G47.10 [id number] 06/03/2017 21:34:00 06/03/2017 23:21:00 DIS Emergency CALI ROBERTS, EARNESTINE José [facility] ER WEAK RECTAL BLEED [id number] 05/31/2017 09:41:00 05/31/2017 23:59:59 CLS Outpatient CHELSY MORALES [facility] LAB E03.9 J45.50J30.89 [id number] 05/31/2017 09:37:00 05/31/2017 23:59:59 CLS Outpatient CHELY PETERS APRN [facility] RAD J45.909 R06.00 [id number] 05/11/2017 10:14:00 05/11/2017 12:12:00 DIS Emergency EDWIN PETER MD [facility] ER BREATHING ISSUES,ASTHMA-- [id number] 05/10/2017 17:52:00 05/10/2017 18:30:00 DIS Emergency EDWIN PETER MD [facility] ER TROUBLE BREATHING;WANTS CHECKED FOR MENINGITIS [id number] 10/08/2013 09:47:00 10/08/2013 23:59:59 CLS Outpatient BUBBA ROBERTS FACC, ALI FACP CCDS [facility] CARD CHEST PAIN [id number] 11/12/2012 10:01:00 11/12/2012 18:08:00 DIS Outpatient BUBBA ROBERTS FACC, ALI FACP CCDS [facility] CATH CP,HTN [id number] 10/28/2012 09:39:00 10/28/2012 23:59:59 CLS Outpatient SARAHI SAMUEL MD [facility] CARD CP [id number] 06/18/2012 21:53:00 Document Registration [id number] 05/30/2012 15:52:00 Document Registration [id number] 03/12/2012 10:40:00 Document Registration [id number] 02/27/2012 00:00:00 Document Registration [id number] 02/20/2012 19:38:00 Document Registration [id number] 01/27/2012 23:40:00 Document Registration [id number] 01/19/2012 18:00:00 Document Registration [id number] 01/14/2012 18:51:00 Document Registration [id number] 01/08/2012 19:51:00 Document Registration [id number] 12/23/2011 15:40:00 Document Registration [id number] 12/07/2011 12:34:00 Document Registration [id number] 12/07/2011 12:33:00 Document Registration [id number] 07/13/2014 15:58:00 07/13/2014 23:59:59 CLS Outpatient KIANNA MENESES MD [id number] 02/27/2014 10:40:00 02/27/2014 23:59:59 CLS Outpatient KIANNA MENESES MD [id number] 01/19/2014 13:44:00 01/19/2014 23:59:59 CLS Outpatient KIANNA MENESES MD [id number] 12/16/2013 14:02:00 12/16/2013 23:59:59 CLS Outpatient KIANNA MENESES MD [id number] 12/09/2013 10:27:00 12/09/2013 23:59:59 CLS Outpatient KIANNA MENESES MD [id number] 10/22/2013 08:50:00 10/22/2013 23:59:59 CLS Outpatient BOBBI TELLO APRN [id number] 07/10/2013 10:08:00 07/10/2013 23:59:59 CLS Outpatient BOBBI TELLO APRN [id number] 06/06/2013 14:14:00 06/06/2013 23:59:59 CLS Outpatient BOBBI TELLO APRN [id number] 03/24/2013 09:45:00 03/24/2013 23:59:59 CLS Outpatient MICHELLE MOLINA APRN [id number] 08/07/2012 09:32:00 08/07/2012 23:59:59 CLS Outpatient BELKYS PENA DO [id number] 06/13/2012 08:35:00 06/13/2012 23:59:59 [place] [id number] 05/13/2012 10:13:00 05/13/2012 23:59:59 CLS Outpatient BELKYS PENA DO [id number] 12/13/2012 13:15:00 Document Registration [id number] 11/22/2012 11:11:00 Document Registration [id number] 11/15/2012 10:57:00 Document Registration [id number] 10/16/2012 11:41:00 Document Registration
== END 2018-12-27 17:51 | disposition home or self-care (01) ==
LOC: EDUNIT# 16:22 → ER 16:22
DX: J45.909 Unspecified asthma, uncomplicated (principal); I10 Essential (primary) hypertension; F41.9 Anxiety disorder, unspecified; E03.9 Hypothyroidism, unspecified; G47.30 Sleep apnea, unspecified; Z79.52 Long term (current) use of systemic steroids; Z99.89 Dependence on other enabling machines and devices
CPT/HCPCS: 36415; 71045; 80053; 85007; 85027; 86141; 94640; 96374

== ENCOUNTER 2019-03-14 00:58 | Emergency (ER) | payer SELFPAY ==
[~2019-03-14] VITALS: Ht 175 cm; Wt 95.0 kg
[~2019-03-14 00:58] MED LIST changes: +ALBU2.5V4 INH
[2019-03-14] MEDS ORDERED: ASPIRIN 81 MG CHEW (CHILDREN'S ASA) PO ONE (01:15)
[2019-03-14] MEDS: NITROGLYCERIN 0.4 MG SL TABS BTL 25'S SL PRN ×2 (01:18→01:24)
[2019-03-14 01:24] LABS: BASOPHILS # (AUTO) 0.1 10^3/uL (0.0-0.1); BASOPHILS % (AUTO) 1 % (0-10); EOSINOPHILS # (AUTO) 1.1 10^3/uL (0.0-0.3); EOSINOPHILS % (AUTO) 14 % (0-10); HEMATOCRIT 45 % (40-54); HEMOGLOBIN 14.8 G/DL (13.3-17.7); LYMPHOCYTES # (AUTO) 2.7 X 10^3 (1.0-4.0); LYMPHOCYTES % (AUTO) 34 % (12-44); MEAN CORPUSCULAR HEMOGLOBIN 30 PG (25-34); MEAN CORPUSCULAR HGB CONC 33 G/DL (32-36); MEAN CORPUSCULAR VOLUME 92 FL (80-99); MEAN PLATELET VOLUME 10.5 FL (7.4-10.4); MONOCYTES # (AUTO) 0.5 X 10^3 (0.0-1.0); MONOCYTES % (AUTO) 7 % (0-12); NEUTROPHILS # (AUTO) 3.4 X 10^3 (1.8-7.8); NEUTROPHILS % (AUTO) 44 % (42-75); PLATELET COUNT 241 10^3/uL (130-400); WHITE BLOOD COUNT 7.7 10^3/uL (4.3-11.0)
[2019-03-14 01:33] LABS: INR 0.9 (0.8-1.4); PROTHROMBIN TIME PATIENT 11.9 SEC (12.2-14.7)
--- NOTE | 2019-03-14 01:40 | NUR ---
PER JAC WITH [facility] PT REFUSED WANTING TO DO WORK COMP AND REFUSED UA.
[2019-03-14 01:44] LABS: ALANINE AMINOTRANSFERASE 25 U/L (0-55); ALBUMIN 4.4 GM/DL (3.2-4.5); ALKALINE PHOSPHATASE 87 U/L (40-136); BILIRUBIN,TOTAL 0.3 MG/DL (0.1-1.0); BUN/CREATININE RATIO 18; CALCIUM 9.7 MG/DL (8.5-10.1); CARBON DIOXIDE 23 MMOL/L (21-32); CHLORIDE 105 MMOL/L (98-107); CREATININE SERUM 0.98 MG/DL (0.60-1.30); GFR ESTIMATED > 60; GLUCOSE 75 MG/DL (70-105); MAGNESIUM 1.9 MG/DL (1.6-2.4); POTASSIUM 4.4 MMOL/L (3.6-5.0); SODIUM 139 MMOL/L (135-145); TOTAL PROTEIN 7.8 GM/DL (6.4-8.2)
[2019-03-14] MEDS ORDERED: RT-ALBUTEROL/IPRATROPIUM 3 ML (DUONEB) VIAL INH ONE (01:45)
[2019-03-14] MEDS ORDERED: KETOROLAC 30 MG/ML VIAL IVP ONE (02:30)
--- NOTE | 2019-03-14 04:17 | ED Chest Pain ---
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 STATES HE HAS CHEST PAIN UNDER LEFT BREAST RATING 4 ON 0-10 SCALE. Nursing Sepsis Screen: No Definite Risk Source: patient Exam Limitations: no limitations History of Present Illness Date Seen by Provider: Mar 14, 2019 Time Seen by Provider: 00:59 Initial Comments This 39-year-old young man presents to the emergency room via EMS with complaints of left-sided chest pain and shortness of breath that started while he was moving windows at work. Pain is somewhat atypical in that it is worse with coughing and deep breathing. Patient had a heart catheter in 2012 demonstrating some diastolic dysfunction without any coronary artery disease. He uses an inhaler for his reactive airway disease which did seem to help a little bit tonight. He has nasal congestion and eye swelling recently likely related to allergies. Allergies and Home Medications Allergies Coded Allergies: No Known Drug Allergies (Unverified , 05/04/11) Home Medications Albuterol Sulfate 2.5 Mg/3 Ml Vial.neb, 2.5 MG IH Q4H PRN for WHEEZING Prescribed by: KEIRA PENA on 07/27/17 1448 Albuterol Sulfate 2.5 Mg/3 Ml Vial.neb, 2.5 MG INH Q4H PRN for WHEEZING Prescribed by: KEIRA PENA on 12/27/18 1736 Azithromycin 250 Mg Tablet, 250 MG PO UD TAKE 2 TABLETS TODAY, THEN TAKE 1 TABLET DAILY FOR 4 MORE DAYS Prescribed by: KEIRA PENA on 04/02/18 2241 Levothyroxine Sodium 50 Mcg Tablet, 50 MCG PO DAILY, (Reported) Ondansetron 4 Mg Tab.rapdis, 4 MG PO Q6H PRN for NAUSEA/VOMITING Prescribed by: EDWIN PETER on 08/16/18 1435 Pramoxine HCl 15 Gm Foam, 1 APPLIC TP QID Prescribed by: EARNESTINE WILKERSON on 06/03/17 2315 Prednisone 20 Mg Tab, 40 MG PO DAILY Prescribed by: KEIRA PENA on 07/27/17 1448 Prednisone 5 Mg Tablet, 5 MG PO UD 40 mg daily for 4 days. Prescribed by: KEIRA PENA on 04/02/18 2241 Prednisone 20 Mg Tab, 40 MG PO DAILY Prescribed by: EDWIN PETER on 07/06/18 0225 Prednisone 20 Mg Tab, 40 MG PO DAILY Prescribed by: EDWIN PETER on 08/16/18 1435 Prednisone 20 Mg Tab, 40 MG PO DAILY Prescribed by: KEIRA PENA on 12/27/18 1736 Patient Home Medication List Home Medication List Reviewed: Yes Review of Systems Review of Systems Constitutional: no symptoms reported EENTM: No Symptoms Reported Respiratory: See HPI Cardiovascular: See HPI Gastrointestinal: No Symptoms Reported Genitourinary: No Symptoms Reported Musculoskeletal: no symptoms reported Skin: no symptoms reported Psychiatric/Neurological: No Symptoms Reported Endocrine: No Symptoms Reported Hematologic/Lymphatic: No Symptoms Reported Past Sacfqfa-Jsohip-Dwayue Hx Past Med/Social Hx: Reviewed and Corrections made Patient Social History Alcohol Use: Denies Use Recreational Drug Use: No Smoking Status: Never a Smoker 2nd Hand Smoke Exposure: No Recent Foreign Travel: No Contact w/Someone Who Travel: No Recent Infectious Disease Expo: No Recent Hopitalizations: Yes Physical Abuse: No Sexual Abuse: No Mistreated: No Fear: No Immunizations Up To Date Tetanus Booster (TDap): Less than 5yrs PED Vaccines UTD: Yes Seasonal Allergies Seasonal Allergies: No Past Medical History Surgeries: Yes (HEART CATH 2011) Respiratory: Yes Sleep Apnea, COPD (Reactive airway disease) Currently Using CPAP: Yes Currently Using BIPAP: No Cardiac: Yes Hypertension Neurological: No Reproductive Disorders: No Genitourinary: No Gastrointestinal: No Musculoskeletal: No Endocrine: Yes Hypothyroidsim HEENT: No Cancer: No Psychosocial: Yes Anxiety Integumentary: No Blood Disorders: No Family Medical History No Pertinent Family Hx Physical Exam Vital Signs Vital Signs - First Documented 03/14/19 01:55 Pulse Ox 100 Capillary Refill : Less Than 3 Seconds Height, Weight, BMI Height: 5'9.00" Weight: 210lbs. 0oz. [id number]; 31.00 BMI Method:Stated General Appearance: No Apparent Distress, WD/WN HEENT: PERRL/EOMI, Normal ENT Inspection Neck: Normal Inspection Respiratory: Lungs Clear, Normal Breath Sounds, No Accessory Muscle Use, No R espiratory Distress, Other (Tenderness to palpation over the left chest. 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 as Tested Skin: Normal Color, Warm/Dry Progress/Results/Core Measures Results/Orders Lab Results Laboratory Tests Test 03/14/19 01:10 03/14/19 03:08 Range/Units White Blood Count 7.7 4.3-11.0 10^3/uL Red Blood Count 4.94 4.35-5.85 10^6/uL Hemoglobin 14.8 13.3-17.7 G/DL Hematocrit 45 40-54 % Mean Corpuscular Volume 92 80-99 FL Mean Corpuscular Hemoglobin 30 25-34 PG Mean Corpuscular Hemoglobin Concent 33 32-36 G/DL Red Cell Distribution Width 13.0 10.0-14.5 % Platelet Count 241 130-400 10^3/uL Mean Platelet Volume 10.5 H 7.4-10.4 FL Neutrophils (%) (Auto) 44 42-75 % Lymphocytes (%) (Auto) 34 12-44 % Monocytes (%) (Auto) 7 0-12 % Eosinophils (%) (Auto) 14 H 0-10 % Basophils (%) (Auto) 1 0-10 % Neutrophils # (Auto) 3.4 1.8-7.8 X 10^3 Lymphocytes # (Auto) 2.7 1.0-4.0 X 10^3 Monocytes # (Auto) 0.5 0.0-1.0 X 10^3 Eosinophils # (Auto) 1.1 H 0.0-0.3 10^3/uL Basophils # (Auto) 0.1 0.0-0.1 10^3/uL Prothrombin Time 11.9 L 12.2-14.7 SEC INR Comment 0.9 0.8-1.4 Activated Partial Thromboplast Time 30 24-35 SEC Sodium Level 139 135-145 MMOL/L Potassium Level 4.4 3.6-5.0 MMOL/L Chloride Level 105 98-107 MMOL/L Carbon Dioxide Level 23 21-32 MMOL/L Anion Gap 11 5-14 MMOL/L Blood Urea Nitrogen 18 7-18 MG/DL Creatinine 0.98 0.60-1.30 MG/DL Estimat Glomerular Filtration Rate > 60 BUN/Creatinine Ratio 18 Glucose Level 75 70-105 MG/DL Calcium Level 9.7 8.5-10.1 MG/DL Corrected Calcium 9.4 8.5-10.1 MG/DL Magnesium Level 1.9 1.6-2.4 MG/DL Total Bilirubin 0.3 0.1-1.0 MG/DL Aspartate Amino Transf (AST/SGOT) 20 5-34 U/L Alanine Aminotransferase (ALT/SGPT) 25 0-55 U/L Alkaline Phosphatase 87 40-136 U/L Myoglobin 38.1 10.0-92.0 NG/ML Troponin I < 0.028 < 0.028 <0.028 NG/ML B-Type Natriuretic Peptide 17.3 <100.0 PG/ML Total Protein 7.8 6.4-8.2 GM/DL Albumin 4.4 3.2-4.5 GM/DL My Orders Orders - EARNESTINE LEIVA MD Cbc With Automated Diff (03/14/19 01:08) Magnesium (03/14/19 01:08) Chest 1 View, Ap/Pa Only (03/14/19 01:08) Ekg Tracing (03/14/19 01:08) Cardiac Profile 1 (03/14/19 01:08) Comprehensive Metabolic Panel (03/14/19 01:08) Myoglobin Serum (03/14/19 01:08) Protime With Inr (03/14/19 01:08) Partial Thromboplastin Time (03/14/19 01:08) O2 (03/14/19 01:08) Monitor-Rhythm Ecg Trace Only (03/14/19 01:08) Ed Iv/Invasive Line Start (03/14/19 01:08) Nitroglycerin 0.4 Mg Btl 25's (Nitrostat (03/14/19 01:15) Aspirin Chewable Tablet (Baby Aspirin Ch (03/14/19 01:15) Albuterol/Ipra Inhalation Soln (Duoneb I (03/14/19 01:45) Svn Small Volume Nebulizer (03/14/19 01:38) BNP (03/14/19 01:39) Troponin I (03/14/19 03:10) Ekg Tracing (03/14/19 02:17) Ketorolac Injection (Toradol Injection) (03/14/19 02:30) Medications Given in ED Current Medications Medications Dose Ordered Sig/Anatoly Route Start Time Stop Time Status Last Admin Dose Admin Albuterol/ Ipratropium 3 ml ONCE ONCE INH 03/14/19 01:45 03/14/19 01:46 DC 03/14/19 01:52 3 ML Aspirin 324 mg ONCE ONCE PO 03/14/19 01:15 03/14/19 01:16 DC 03/14/19 01:17 324 MG Ketorolac Tromethamine 15 mg ONCE ONCE IVP 03/14/19 02:30 03/14/19 02:31 DC 03/14/19 02:43 15 MG Nitroglycerin 0.4 mg UD PRN SL 03/14/19 01:15 03/14/19 04:23 DC 03/14/19 01:24 0.4 MG Vital Signs/I&O 03/14/19 03/14/19 03/14/19 03/14/19 01:01 01:01 01:55 04:22 Temp 36.3 36.3 Pulse 67 67 Resp 20 18 B/P (MAP) 156/94 (114) 124/85 (114) Pulse Ox 100 100 O2 Delivery Room Air Room Air Room Air Room Air Blood Pressure Mean: 114 Progress Progress Note : Progress Note Workup was unremarkable. Patient did not meet per criteria. Pain did not improve with nitroglycerin. DuoNeb treatment helped him feel better with breathing but did not completely alleviate discomfort. Toradol did relieve his pain. A 2 hour troponin and EKG were both negative. EKG #1: EKG Time: 01:12 Rate: 76 Rhythm: Normal Sinus Intervals: Normal ECG Impression: Normal Comment Normal sinus rhythm with no ST elevation or depression. No abnormal intervals or axis deviation. EKG #2: EKG Time: 02:58 Rate: 72 Rhythm: Normal Sinus Intervals: Normal ECG Impression: Normal Comment Normal sinus rhythm with no ST elevation or depression. No abnormal intervals or axis deviation. Departure Impression Primary Impression: Atypical chest pain Additional Impression: Reactive airway disease Qualified Codes: J45.901 - Unspecified asthma with (acute) exacerbation Disposition: 01 HOME, SELF-CARE Condition: Improved Departure-Patient Inst. Decision time for Depature: 04:13 Referrals: [facility] (PCP/Family) Primary Care Physician Patient Instructions: Chest Pain (DC) Add. Discharge Instructions: Use your inhaler up to 4 puffs every 4 hours as needed for shortness of breath. Follow-up with your primary care provider soon as possible. Use an allergy medication such as Claritin (loratadine) or Zyrtec (cetirizine) daily during allergy seasons. If any activity causes pain or shortness of breath, stop that activity and rest. If symptoms do not resolve with rest, return to the emergency room. For pain you may try taking ibuprofen and/or Tylenol (acetaminophen). All discharge instructions reviewed with patient and/or family. Voiced understanding. Work/School Note: Work Release Form Date Seen in the Emergency Department: Mar 14, 2019 Return to Work: Mar 14, 2019 Restrictions: No Restrictions Copy Copies To 1: BELKYS PENA JOSHUA T MD Mar 14, 2019 04:17
[2019-03-14 04:22] VITALS: BP 124/85
--- NOTE | 2019-03-14 05:30 | Diagnostic Imaging Report ---
INDICATION: Chest pain. COMPARISON: 12/27/2018 FINDINGS: Single frontal view of the chest demonstrates normal heart size and pulmonary vascularity. The lungs are well aerated and clear. No large pleural effusion or pneumothorax is seen. The visualized osseous structures show no acute abnormalities. IMPRESSION: 1. No acute cardiopulmonary process. Dictated by: Dictated on workstation # [id number]
== END 2019-03-14 04:23 | disposition home or self-care (01) ==
LOC: EDUNIT# 00:58 → ER 00:59
DX: R07.89 Other chest pain (principal); J45.909 Unspecified asthma, uncomplicated; G47.30 Sleep apnea, unspecified; I10 Essential (primary) hypertension; E03.9 Hypothyroidism, unspecified; F41.9 Anxiety disorder, unspecified; Z99.89 Dependence on other enabling machines and devices; Z95.9 Presence of cardiac and vascular implant and graft, unspecified; Z79.52 Long term (current) use of systemic steroids
CPT/HCPCS: 36415; 71045; 80053; 83735; 83874; 83880; 84484; 85025; 85610; 85730; 93005; 93041; 94640

== ENCOUNTER 2019-04-05 19:20 | Emergency (ER) | payer SELFPAY ==
[~2019-04-05] VITALS: Ht 175 cm; Wt 95.7 kg
[2019-04-05] MEDS ORDERED: methylPREDNISolone 125 MG (Solu-MEDROL) VIAL IVP ONE (19:30)
[2019-04-05] MEDS ORDERED: ASPIRIN 81 MG CHEW (CHILDREN'S ASA) PO ONE (19:30)
[2019-04-05] MEDS ORDERED: KETOROLAC 30 MG/ML VIAL IVP ONE (19:30)
--- NOTE | 2019-04-05 19:30 | ED Dyspnea ---
General Stated Complaint: CHEST PAIN Source of Information: Patient Exam Limitations: No Limitations History of Present Illness Date Seen by Provider: Apr 05, 2019 Time Seen by Provider: 19:28 Initial Comments To ER with a one-week history of sharp intermittent left-sided chest pain worse with deep breathing. He has a history of COPD and has been using his nebulizer quite frequently. He does not smoke. No fevers or chills. His cough has increased as well. Timing/Duration: 1 Week Severity: Moderate Activities at Onset: None Associated Symptoms: Chest Pain Allergies and Home Medications Allergies Coded Allergies: No Known Drug Allergies (Unverified , 05/04/11) Home Medications Albuterol Sulfate 2.5 Mg/3 Ml Vial.neb, 2.5 MG IH Q4H PRN for WHEEZING Prescribed by: KEIRA PENA on 07/27/17 144 Albuterol Sulfate 2.5 Mg/3 Ml Vial.neb, 2.5 MG INH Q4H PRN for WHEEZING Prescribed by: KEIRA PENA on 12/27/181735 Azithromycin 250 Mg Tablet, 250 MG PO UD TAKE 2 TABLETS TODAY, THEN TAKE 1 TABLET DAILY FOR 4 MORE DAYS Prescribed by: KEIRA PENA on 04/02/182240 Levothyroxine Sodium 50 Mcg Tablet, 50 MCG PO DAILY, (Reported) Ondansetron 4 Mg Tab.rapdis, 4 MG PO Q6H PRN for NAUSEA/VOMITING Prescribed by: EDWIN PETER on 08/16/18 143 Pramoxine HCl 15 Gm Foam, 1 APPLIC TP QID Prescribed by: EARNESTINE WILKERSON on 06/03/17 2315 Prednisone 20 Mg Tab, 40 MG PO DAILY Prescribed by: KEIRA PENA on 07/27/17 1448 Prednisone 5 Mg Tablet, 5 MG PO UD 40 mg daily for 4 days. Prescribed by: KEIRA PENA on 04/02/18 224 Prednisone 20 Mg Tab, 40 MG PO DAILY Prescribed by: EDWIN PETER on 07/06/18 0225 Prednisone 20 Mg Tab, 40 MG PO DAILY Prescribed by: EDWIN PETER on 08/16/18 1435 Prednisone 20 Mg Tab, 40 MG PO DAILY Prescribed by: KEIRA PENA on 12/27/18 173 Patient Home Medication List Home Medication List Reviewed: Yes Review of Systems Review of Systems Constitutional: see HPI; No chills, No fever EENTM: see HPI Respiratory: see HPI, cough, dyspnea on exertion, short of breath Cardiovascular: see HPI, chest pain Genitourinary: no symptoms reported Musculoskeletal: no symptoms reported Skin: no symptoms reported Psychiatric/Neurological: No Symptoms Reported Endocrine: No Symptoms Reported Past Jurvgib-Vdibdh-Eolbdg Hx Patient Social History 2nd Hand Smoke Exposure: No Recent Foreign Travel: No Contact w/Someone Who Travel: No Recent Hopitalizations: Yes Immunizations Up To Date Tetanus Booster (TDap): Less than 5yrs PED Vaccines UTD: Yes Seasonal Allergies Seasonal Allergies: No Past Medical History Surgeries: Yes (HEART CATH 2011) Respiratory: Yes Sleep Apnea, COPD Currently Using CPAP: Yes Currently Using BIPAP: No Cardiac: Yes Hypertension Neurological: No Reproductive Disorders: No Genitourinary: No Gastrointestinal: No Musculoskeletal: No Endocrine: Yes Hypothyroidsim HEENT: No Cancer: No Psychosocial: Yes Anxiety Integumentary: No Blood Disorders: No Family Medical History No Pertinent Family Hx Physical Exam Vital Signs Vital Signs - First Documented 04/05/19 19:23 Temp 36.5 Pulse 87 Resp 18 B/P (MAP) 148/87 (107) Pulse Ox 99 O2 Delivery Room Air Capillary Refill : Height, Weight, BMI Height: 5'9.00" Weight: 210lbs. 0oz. 95.762637ph; 31.00 BMI Method:Stated General Appearance: No Apparent Distress, WD/WN, Other (Speaks in full sentences no accessory muscle use no distress) HEENT: PERRL/EOMI, TMs Normal Neck: Full Range of Motion, Normal Inspection Respiratory: No Accessory Muscle Use, No Respiratory Distress, Decreased Breath Sounds Cardiovascular: Regular Rate, Rhythm, No Edema, Normal Peripheral Pulses Gastrointestinal: Non Tender, Soft Extremity: Normal Capillary Refill, Normal Inspection Neurologic/Psychiatric: Alert, Oriented x3 Skin: Normal Color, Warm/Dry Progress/Results/Core Measures Results/Orders Lab Results Laboratory Tests Test 04/05/19 19:26 Range/Units White Blood Count 8.7 4.3-11.0 10^3/uL Red Blood Count 4.75 4.35-5.85 10^6/uL Hemoglobin 14.3 13.3-17.7 G/DL Hematocrit 43 40-54 % Mean Corpuscular Volume 91 80-99 FL Mean Corpuscular Hemoglobin 30 25-34 PG Mean Corpuscular Hemoglobin Concent 33 32-36 G/DL Red Cell Distribution Width 12.8 10.0-14.5 % Platelet Count 238 130-400 10^3/uL Mean Platelet Volume 10.1 7.4-10.4 FL Neutrophils (%) (Auto) 57 42-75 % Lymphocytes (%) (Auto) 22 12-44 % Monocytes (%) (Auto) 5 0-12 % Eosinophils (%) (Auto) 16 H 0-10 % Basophils (%) (Auto) 1 0-10 % Neutrophils # (Auto) 4.9 1.8-7.8 X 10^3 Lymphocytes # (Auto) 1.9 1.0-4.0 X 10^3 Monocytes # (Auto) 0.4 0.0-1.0 X 10^3 Eosinophils # (Auto) 1.4 H 0.0-0.3 10^3/uL Basophils # (Auto) 0.1 0.0-0.1 10^3/uL My Orders Orders - KEIRA PENA TRA[employer] COURT REFEREE Cbc With Automated Diff (04/05/19:) Magnesium (04/05/19:) Chest 1 View, Ap/Pa Only (04/05/19) Ekg Tracing (04/05/19:) Cardiac Profile 1 (04/05/19) Comprehensive Metabolic Panel (04/05/19:) Myoglobin Serum (04/05/19:) Protime With Inr (04/05/19:) Partial Thromboplastin Time (04/05/19:) O2 (04/05/19:) Monitor-Rhythm Ecg Trace Only (04/05/19) Lipid Panel (04/06/19 06:00) Ed Iv/Invasive Line Start (04/05/19:) BNP (04/05/19:) Aspirin Chewable Tablet (Baby Aspirin Ch (04/05/19 19:30) Ketorolac Injection (Toradol Injection) (04/05/19 19:) Methylprednisolone Sod Succ (Solu-Medrol (04/05/19 19:) Fibrin Degradation Products (04/05/19 19:27) Albuterol/Ipra Inhalation Soln (Duoneb I (04/05/19 19:45) Svn Small Volume Nebulizer (04/05/19 19:45) Manual Differential (04/05/19 19:26) Medications Given in ED Current Medications Medications Dose Ordered Sig/Anatoly Route Start Time Stop Time Status Last Admin Dose Admin Albuterol/ Ipratropium 3 ml ONCE ONCE INH 04/05/19 19:45 04/05/19 19:47 DC 04/05/19 20:01 3 ML Aspirin 324 mg ONCE ONCE PO 04/05/19 19:30 04/05/19 19:31 DC 04/05/19 19:25 324 MG Ketorolac Tromethamine 15 mg ONCE ONCE IVP 04/05/19 19:30 04/05/19 19:31 DC 04/05/19 19:38 15 MG Methylprednisolone Sodium Succinate 125 mg ONCE ONCE IVP 04/05/19 19:30 04/05/19 19:31 DC 04/05/19 19:38 125 MG Vital Signs/I&O 04/05/19 04/05/19 04/05/19 19:23 19:26 20:02 Temp 36.5 Pulse 87 Resp 18 B/P (MAP) 148/87 (107) Pulse Ox 99 99 96 O2 Delivery Room Air Room Air Room Air Departure Impression Primary Impression: Pleuritic chest pain Additional Impression: COPD exacerbation Disposition: 01 HOME, SELF-CARE Condition: Stable Departure-Patient Inst. Decision time for Depature: 20:05 Referrals: NO,LOCAL PHYSICIAN (PCP/Family) Primary Care Physician Patient Instructions: Pleuritic Chest Pain Add. Discharge Instructions: 1. Medication as directed 2. Return to ER for any concerns 3. Follow-up with your doctor next week Scripts Cefuroxime Axetil (Cefuroxime) 250 Mg Tablet 250 MG PO BID, #10 TAB Prov: KEIRA PENA [address] REFEREE 04/05/19 Prednisone (Prednisone) 20 Mg Tab 40 MG PO DAILY, #8 TAB 0 Refills Prov: KEIRA PENA [address] REFEREE 04/05/[address] REFEREE Apr 05, 2019 19:29
[2019-04-05] MEDS ORDERED: RT-ALBUTEROL/IPRATROPIUM 3 ML (DUONEB) VIAL INH ONE (19:45)
[2019-04-05 19:46] LABS: BASOPHILS # (AUTO) 0.1 10^3/uL (0.0-0.1); BASOPHILS % (AUTO) 1 % (0-10); EOSINOPHILS # (AUTO) 1.4 10^3/uL (0.0-0.3); EOSINOPHILS % (AUTO) 16 % (0-10); HEMATOCRIT 43 % (40-54); HEMOGLOBIN 14.3 G/DL (13.3-17.7); LYMPHOCYTES # (AUTO) 1.9 X 10^3 (1.0-4.0); LYMPHOCYTES % (AUTO) 22 % (12-44); MEAN CORPUSCULAR HEMOGLOBIN 30 PG (25-34); MEAN CORPUSCULAR HGB CONC 33 G/DL (32-36); MEAN CORPUSCULAR VOLUME 91 FL (80-99); MEAN PLATELET VOLUME 10.1 FL (7.4-10.4); MONOCYTES # (AUTO) 0.4 X 10^3 (0.0-1.0); MONOCYTES % (AUTO) 5 % (0-12); NEUTROPHILS # (AUTO) 4.9 X 10^3 (1.8-7.8); NEUTROPHILS % (AUTO) 57 % (42-75); PLATELET COUNT 238 10^3/uL (130-400); RED CELL DISTRIBUTION WIDTH 12.8 % (10.0-14.5); WHITE BLOOD COUNT 8.7 10^3/uL (4.3-11.0)
--- NOTE | 2019-04-05 19:58 | Diagnostic Imaging Report ---
INDICATION: Chest pain for one week. EXAMINATION: Single view of the chest was obtained. COMPARISON: 03/14/2019. FINDINGS: The lungs are well-aerated. There are no infiltrates. Heart is not enlarged. There is no pulmonary edema. No hilar adenopathy. No pneumothorax or pleural effusion. IMPRESSION: Normal portable chest. No change since previous exam. Dictated by: Dictated on workstation # [id number]
[2019-04-05 19:59] LABS: INR 0.9 (0.8-1.4); PROTHROMBIN TIME PATIENT 12.7 SEC (12.2-14.7)
[2019-04-05 20:05] LABS: BAND NEUTROPHILS 0 %; BASOPHILS % (MANUAL) 0 %; EOSINOPHILS % (MANUAL) 18 %; LYMPHOCYTES % (MANUAL) 21 %; MONOCYTES % (MANUAL) 4 %; NEUTROPHILS % (MANUAL) 57 %
[2019-04-05 20:06] LABS: RBC MORPH NORMAL
[2019-04-05] MEDS ORDERED: PRD20T PO (20:06)
[2019-04-05] MEDS ORDERED: CEFU250T80 PO (20:06)
[2019-04-05 20:08] LABS: ALANINE AMINOTRANSFERASE 17 U/L (0-55); ALBUMIN 4.1 GM/DL (3.2-4.5); ALKALINE PHOSPHATASE 91 U/L (40-136); BILIRUBIN,TOTAL 0.5 MG/DL (0.1-1.0); BUN/CREATININE RATIO 12; CALCIUM 9.3 MG/DL (8.5-10.1); CARBON DIOXIDE 22 MMOL/L (21-32); CHLORIDE 106 MMOL/L (98-107); CREATININE SERUM 0.98 MG/DL (0.60-1.30); GFR ESTIMATED > 60; GLUCOSE 138 MG/DL (70-105); MAGNESIUM 1.9 MG/DL (1.6-2.4); POTASSIUM 3.2 MMOL/L (3.6-5.0); SODIUM 141 MMOL/L (135-145); TOTAL PROTEIN 7.3 GM/DL (6.4-8.2)
[2019-04-05] MEDS ORDERED: KCL 10 MEQ TAB (MICRO K) PO ONE (20:30)
[2019-04-05] MEDS ORDERED: CEFDINIR 300 MG (OMNICEF) CAP PO ONE (20:30)
[2019-04-05 20:31] VITALS: BP 142/94
== END 2019-04-05 20:30 | disposition home or self-care (01) ==
LOC: EDUNIT# 19:20 → ER 19:21
DX: R07.81 Pleurodynia (principal); J44.1 Chronic obstructive pulmonary disease with (acute) exacerbation; I10 Essential (primary) hypertension; E03.9 Hypothyroidism, unspecified; F41.9 Anxiety disorder, unspecified; G47.30 Sleep apnea, unspecified; Z99.89 Dependence on other enabling machines and devices; Z79.52 Long term (current) use of systemic steroids
CPT/HCPCS: 36415; 71045; 80053; 83735; 83874; 83880; 84484; 85007; 85027; 85379; 85610; 85730; 93005; 93041; 94640; 94760; 96374; 96375

== ENCOUNTER 2019-04-14 17:18 | Emergency (ER) | payer SELFPAY ==
[~2019-04-14] VITALS: Ht 175 cm; Wt 95.4 kg
[~2019-04-14 17:18] MED LIST changes: +CEFU250T80 PO
[2019-04-14] MEDS ORDERED: RT-ALBUTEROL/IPRATROPIUM 3 ML (DUONEB) VIAL INH ONE (17:30)
[2019-04-14] MEDS ORDERED: methylPREDNISolone 125 MG (Solu-MEDROL) VIAL IVP ONE (17:30)
[2019-04-14] MEDS ORDERED: NS IV 1000 ML 1,000 ML IV SCH (17:30)
--- NOTE | 2019-04-14 17:32 | ED Cough/URI ---
General Chief Complaint: General Problems/Pain Stated Complaint: CHEST PAIN Nursing Triage Note: TO ROOM 07 WITH MULTIPLE COMPLAINTS. C/O SOA WITH DEEP BREATH, VOMITING, STUFFY NOSE, AND CHEST PAIN. Sepsis Screen: No Definite Risk Source: patient Exam Limitations: no limitations (DANIELLE LIRIANO MD) History of Present Illness Date Seen by Provider: Apr 14, 2019 Time Seen by Provider: 17:28 Initial Comments This 39-year-old male presents with chest pain with deep breath cough and nasal congestion. The patient was seen in emergency department on Sunday and given prescriptions for steroids and antibiotic which she has not filled. Patient has been using his bronchodilators at home and excess. The patient denies associated headache and stiff neck or photophobia. He has had some post tussive vomiting. The patient denies cardiac disease. He has no pressure type pain in CHEST. (DANIELLE LIRIANO MD) Allergies and Home Medications Allergies Coded Allergies: No Known Drug Allergies (Unverified , 05/04/11) Home Medications Albuterol Sulfate 2.5 Mg/3 Ml Vial.neb, 2.5 MG IH Q4H PRN for WHEEZING Prescribed by: KEIRA PENA on 07/27/17 1448 Albuterol Sulfate 2.5 Mg/3 Ml Vial.neb, 2.5 MG INH Q4H PRN for WHEEZING Prescribed by: KEIRA PENA on 12/27/18 1736 Azithromycin 250 Mg Tablet, 250 MG PO UD TAKE 2 TABLETS TODAY, THEN TAKE 1 TABLET DAILY FOR 4 MORE DAYS Prescribed by: KEIRA PENA on 04/02/182240 Cefuroxime Axetil 250 Mg Tablet, 250 MG PO BID Prescribed by: KEIRA PENA on 04/05/192005 Levothyroxine Sodium 50 Mcg Tablet, 50 MCG PO DAILY, (Reported) Ondansetron 4 Mg Tab.rapdis, 4 MG PO Q6H PRN for NAUSEA/VOMITING Prescribed by: EDWIN PETER on 08/16/18 1435 Pramoxine HCl 15 Gm Foam, 1 APPLIC TP QID Prescribed by: EARNESTINE WILKERSON on 06/03/17 2315 Prednisone 20 Mg Tab, 40 MG PO DAILY Prescribed by: KEIRA PENA on 07/27/17 1448 Prednisone 5 Mg Tablet, 5 MG PO UD 40 mg daily for 4 days. Prescribed by: KEIRA PENA on 10/23/18 2241 Prednisone 20 Mg Tab, 40 MG PO DAILY Prescribed by: EDWIN PETER on 07/06/18 0225 Prednisone 20 Mg Tab, 40 MG PO DAILY Prescribed by: EDWIN PETER on 08/16/18 1435 Prednisone 20 Mg Tab, 40 MG PO DAILY Prescribed by: KEIRA PENA on 12/27/18 1736 Prednisone 20 Mg Tab, 40 MG PO DAILY Prescribed by: KEIRA PENA on 04/05/192005 Patient Home Medication List Home Medication List Reviewed: Yes (DANIELLE LIRIANO MD) Review of Systems Review of Systems Constitutional: fever, malaise, weakness EENTM: nose congestion Respiratory: see HPI, cough, short of breath Cardiovascular: chest pain (with coughing) Gastrointestinal: No abdominal pain, No nausea, No vomiting (after coughing) Genitourinary: no symptoms reported Musculoskeletal: no symptoms reported Skin: no symptoms reported Psychiatric/Neurological: No Symptoms Reported Hematologic/Lymphatic: No Symptoms Reported Immunological/Allergic: no symptoms reported (DANIELLE LIRIANO MD) Past Lnbwwlu-Exgmkg-Beaije Hx Past Med/Social Hx: Reviewed Nursing Past Med/Soc Hx (DANIELLE LIRIANO MD) Patient Social History Alcohol Use: Denies Use Recreational Drug Use: No Smoking Status: Never a Smoker 2nd Hand Smoke Exposure: No Recent Foreign Travel: No Contact w/Someone Who Travel: No Recent Infectious Disease Expo: No Recent Hopitalizations: No (DANIELLE LIRIANO MD) Immunizations Up To Date Tetanus Booster (TDap): Less than 5yrs PED Vaccines UTD: Yes (DANIELLE LIRIANO MD) Seasonal Allergies Seasonal Allergies: No (DANIELLE LIRIANO MD) Past Medical History Surgeries: Yes (HEART CATH 2011) Respiratory: Yes Sleep Apnea, COPD Currently Using CPAP: Yes Currently Using BIPAP: No Cardiac: Yes Hypertension Neurological: No Reproductive Disorders: No Genitourinary: No Gastrointestinal: No Musculoskeletal: No Endocrine: Yes Hypothyroidsim HEENT: No Cancer: No Psychosocial: Yes Anxiety Integumentary: No Blood Disorders: No (DANIELLE LIRIANO MD) Family Medical History No Pertinent Family Hx (DANIELLE LIRIANO MD) Physical Exam Vital Signs - First Documented 04/14/19 17:23 Temp 35.2 Pulse 80 Resp 16 B/P (MAP) 139/99 (112) Pulse Ox 100 O2 Delivery Room Air (CARMEN MARTINEZA K DO) Capillary Refill : Less Than 3 Seconds (DANIELLE LIRIANO MD) Height: 5'9.00" Weight: 210lbs. 0oz. 95.786963ot; 31.00 BMI Method:Stated General Appearance: WD/WN Eyes: Bilateral Eye Normal Inspection HEENT: other (and nasal congestion) Neck: non-tender, full range of motion, supple Respiratory: decreased breath sounds Cardiovascular: regular rate, rhythm Gastrointestinal: normal bowel sounds, non tender, soft Extremities: normal range of motion, non-tender, normal inspection Neurologic/Psychiatric: no motor/sensory deficits, alert, normal mood/affect Skin: normal color, warm/dry (DANIELLE LIRIANO MD) Progress/Results/Core Measures Suspected Sepsis Recent Fever Within 48 Hours: No Infection Criteria Present: Suspected New Infection New/Unexplained Altered Menta: No Sepsis Screen: No Definite Risk SIRS Temperature: Pulse: 80 Respiratory Rate: 16 Blood Pressure 139 /99 Mean: 112 (DANIELLE LIRIANO MD) Results/Orders Lab Results Laboratory Tests Test 04/14/19 17:32 Range/Units White Blood Count 8.3 4.3-11.0 10^3/uL Red Blood Count 4.88 4.35-5.85 10^6/uL Hemoglobin 14.8 13.3-17.7 G/DL Hematocrit 44 40-54 % Mean Corpuscular Volume 91 80-99 FL Mean Corpuscular Hemoglobin 30 25-34 PG Mean Corpuscular Hemoglobin Concent 34 32-36 G/DL Red Cell Distribution Width 13.1 10.0-14.5 % Platelet Count 262 130-400 10^3/uL Mean Platelet Volume 10.0 7.4-10.4 FL Neutrophils (%) (Auto) 56 42-75 % Lymphocytes (%) (Auto) 22 12-44 % Monocytes (%) (Auto) 6 0-12 % Eosinophils (%) (Auto) 15 H 0-10 % Basophils (%) (Auto) 1 0-10 % Neutrophils # (Auto) 4.6 1.8-7.8 X 10^3 Lymphocytes # (Auto) 1.8 1.0-4.0 X 10^3 Monocytes # (Auto) 0.5 0.0-1.0 X 10^3 Eosinophils # (Auto) 1.3 H 0.0-0.3 10^3/uL Basophils # (Auto) 0.1 0.0-0.1 10^3/uL Neutrophils % (Manual) 58 % Lymphocytes % (Manual) 16 % Monocytes % (Manual) 3 % Eosinophils % (Manual) 16 % Basophils % (Manual) 0 % Band Neutrophils 2 % Reactive Lymphocytes 5 % Blood Morphology Comment NORMAL Prothrombin Time 13.0 12.2-14.7 SEC INR Comment 0.9 0.8-1.4 Activated Partial Thromboplast Time 30 24-35 SEC Sodium Level 138 135-145 MMOL/L Potassium Level 3.7 3.6-5.0 MMOL/L Chloride Level 104 98-107 MMOL/L Carbon Dioxide Level 22 21-32 MMOL/L Anion Gap 12 5-14 MMOL/L Blood Urea Nitrogen 10 7-18 MG/DL Creatinine 0.87 0.60-1.30 MG/DL Estimat Glomerular Filtration Rate > 60 BUN/Creatinine Ratio 11 Glucose Level 84 70-105 MG/DL Calcium Level 9.3 8.5-10.1 MG/DL Corrected Calcium 9.1 8.5-10.1 MG/DL Magnesium Level 1.7 1.6-2.4 MG/DL Total Bilirubin 0.4 0.1-1.0 MG/DL Aspartate Amino Transf (AST/SGOT) 15 5-34 U/L Alanine Aminotransferase (ALT/SGPT) 16 0-55 U/L Alkaline Phosphatase 85 40-136 U/L Myoglobin 33.4 10.0-92.0 NG/ML Troponin I < 0.028 <0.028 NG/ML Total Protein 7.4 6.4-8.2 GM/DL Albumin 4.2 3.2-4.5 GM/DL (ALEXIS,NÉSTOR K DO) Medications Given in ED Current Medications Medications Dose Ordered Sig/Anatoly Route Start Time Stop Time Status Last Admin Dose Admin Albuterol/ Ipratropium 3 ml ONCE ONCE INH 04/14/19 17:30 04/14/19 17:31 DC 04/14/19 17:47 3 ML Methylprednisolone Sodium Succinate 125 mg ONCE ONCE IVP 04/14/19 17:30 04/14/19 17:31 DC 04/14/19 17:48 125 MG (ALEXIS,NÉSTOR K DO) Vital Signs/I&O 04/14/19 04/14/19 17:23 17:49 Temp 35.2 Pulse 80 Resp 16 B/P (MAP) 139/99 (112) Pulse Ox 100 97 O2 Delivery Room Air Room Air (NÉSTOR MARTINEZ DO) Vital Signs/I&O Capillary Refill : Less Than 3 Seconds (DANIELLE LIRIANO MD) Blood Pressure Mean: 112 POS Progress Note : Time: 17:31 Progress Note Patient was given a DuoNeb treatment and 125 mg Solu-Medrol IV. Laboratory and radiographic evaluation was undertaken. Dr. Martinez, my partner, was kind enough to accept the patient for further care at change of shifts. (DANIELLE LIRIANO MD) Progress Note : Progress Note UNEVENTFUL ER STAY O2 SATS IN UPPER 90'S ON ROOM AIR, LUNGS ARE CLEAR TO AUSCULTATION, AND GOOD AERATION, AND NO DYSPNEA AT DISMISSAL PT IS EXTREMELY MALODOROUS, WEARING OLD/FILTHY HOSPITAL NON-SKID SOCKS. PT WANTS WORK NOTE PT STATES HE HAS AN APPOINTMENT AT [facility] ON SUNDAY (NÉSTOR MARTINEZ DO) Diagnostic Imaging Comments CXR--NO ACUTE PROCESS, PER RADIOLOGIST REPORT AT 1810 Reviewed: Reviewed by Me (NÉSTOR MARTINEZ DO) Departure Impression Primary Impression: Acute bronchitis Disposition: 01 HOME, SELF-CARE Condition: Stable Departure-Patient Inst. Referrals: [facility] [place] (PCP) Primary Care Physician ROMERO LOERA APRN (Family) Primary Care Physician Patient Instructions: Acute Bronchitis, Adult (DC) Add. Discharge Instructions: GET YOUR PRESCRIPTIONS FILLED AND TAKE PRESCRIBED FOLLOW UP WITH YOUR DR ON SUNDAY SCHEDULED DO NOT USE YOUR INHALER MORE OFTEN THAN EVERY 4 HOURS All discharge instructions reviewed with patient and/or family. Voiced understanding. Work/School Note: Work Release Form Date Seen in the Emergency Department: Apr 14, 2019 DANIELLE LIRIANO MD Apr 14, 2019 17:32 NÉSTOR LEON DO Apr 14, 2019 18:24 POS
[2019-04-14 17:40] LABS: BASOPHILS # (AUTO) 0.1 10^3/uL (0.0-0.1); BASOPHILS % (AUTO) 1 % (0-10); EOSINOPHILS # (AUTO) 1.3 10^3/uL (0.0-0.3); EOSINOPHILS % (AUTO) 15 % (0-10); HEMATOCRIT 44 % (40-54); HEMOGLOBIN 14.8 G/DL (13.3-17.7); LYMPHOCYTES # (AUTO) 1.8 X 10^3 (1.0-4.0); LYMPHOCYTES % (AUTO) 22 % (12-44); MEAN CORPUSCULAR HEMOGLOBIN 30 PG (25-34); MEAN CORPUSCULAR HGB CONC 34 G/DL (32-36); MEAN CORPUSCULAR VOLUME 91 FL (80-99); MONOCYTES # (AUTO) 0.5 X 10^3 (0.0-1.0); MONOCYTES % (AUTO) 6 % (0-12); NEUTROPHILS # (AUTO) 4.6 X 10^3 (1.8-7.8); NEUTROPHILS % (AUTO) 56 % (42-75); PLATELET COUNT 262 10^3/uL (130-400); RED CELL DISTRIBUTION WIDTH 13.1 % (10.0-14.5); WHITE BLOOD COUNT 8.3 10^3/uL (4.3-11.0)
[2019-04-14 17:52] LABS: INR 0.9 (0.8-1.4)
[2019-04-14 17:55] LABS: BAND NEUTROPHILS 2 %; BASOPHILS % (MANUAL) 0 %; EOSINOPHILS % (MANUAL) 16 %; LYMPHOCYTES % (MANUAL) 16 %; MONOCYTES % (MANUAL) 3 %; NEUTROPHILS % (MANUAL) 58 %; RBC MORPH NORMAL; REACTIVE LYMPHOCYTES 5 %
[2019-04-14 18:01] LABS: ALANINE AMINOTRANSFERASE 16 U/L (0-55); ALBUMIN 4.2 GM/DL (3.2-4.5); ALKALINE PHOSPHATASE 85 U/L (40-136); BILIRUBIN,TOTAL 0.4 MG/DL (0.1-1.0); BUN/CREATININE RATIO 11; CALCIUM 9.3 MG/DL (8.5-10.1); CARBON DIOXIDE 22 MMOL/L (21-32); CHLORIDE 104 MMOL/L (98-107); CREATININE SERUM 0.87 MG/DL (0.60-1.30); GFR ESTIMATED > 60; GLUCOSE 84 MG/DL (70-105); MAGNESIUM 1.7 MG/DL (1.6-2.4); POTASSIUM 3.7 MMOL/L (3.6-5.0); SODIUM 138 MMOL/L (135-145); TOTAL PROTEIN 7.4 GM/DL (6.4-8.2)
--- NOTE | 2019-04-14 18:07 | Diagnostic Imaging Report ---
INDICATION: COPD and shortness of air COMPARISON: 04/05/2019 FINDINGS: The lungs are clear. The heart and vessels normal. Effusion or pneumothorax. IMPRESSION: No acute appearing abnormality. Dictated by: Dictated on workstation # [id number]
[2019-04-14 18:37] VITALS: BP 133/94
== END 2019-04-14 18:37 | disposition home or self-care (01) ==
LOC: EDUNIT# 17:18 → ER 17:19
DX: J20.9 Acute bronchitis, unspecified (principal); J44.0 Chronic obstructive pulmonary disease with (acute) lower respiratory infection; I10 Essential (primary) hypertension; E03.9 Hypothyroidism, unspecified; F41.9 Anxiety disorder, unspecified; G47.30 Sleep apnea, unspecified; Z95.9 Presence of cardiac and vascular implant and graft, unspecified; Z99.89 Dependence on other enabling machines and devices; Z79.52 Long term (current) use of systemic steroids
CPT/HCPCS: 36415; 71045; 80053; 83735; 83874; 84484; 85007; 85027; 85610; 85730; 93005; 93041; 94640

== ENCOUNTER → 2020-03-10 | Outpatient (CLI) | payer BC ==
--- NOTE | 2020-03-10 16:45 | Diagnostic Imaging Report ---
CT CHEST WO TECHNIQUE: Multiple contiguous axial images were obtained through the chest without the use of intravenous contrast. All CT scans use one or more of the following dose optimizing techniques: automated exposure control, MA and/or KvP adjustment based on a patient size and exam type, or iterative reconstruction. INDICATION: Pulmonary nodule. COMPARISON: None available. FINDINGS: Lungs and airway: No endoluminal nodule within the trachea. Multifocal centrilobular micronodules within the right upper lobe are present. There are few irregular nodules within the left upper lobe, the largest measuring 5 x 5 mm. No consolidation or mass. There are few scattered groundglass nodules within the left lower lobe. No pulmonary fibrosis. Pleura: No pleural effusion or pneumothorax. Heart and mediastinum: Thyroid is normal. No supraclavicular or axillary lymphadenopathy. No mediastinal, hilar or juxtaphrenic lymphadenopathy. Heart is normal in size without pericardial effusion. Soft tissue nodularity in the anterior mediastinum is of unknown significance and etiology. Upper abdomen: No concerning abnormality in the upper abdomen. Musculoskeletal: No worrisome focal osseous lesions. IMPRESSION: 1. Clustered centrilobular micronodules and scattered solid nodules in the upper lung zones are most compatible with an infectious process. 2. Numerous tiny soft tissue nodules in the anterior mediastinum are of unknown significance and etiology. Consider follow-up CT chest with contrast in three to six months to reassess for stability/persistence. Dictated by: Dictated on workstation # [id number]
== END ==
LOC: RAD 15:45
PROVIDERS: ATTEND Nurse Practitioner Family
DX: R91.8 Other nonspecific abnormal finding of lung field (principal)
CPT/HCPCS: 71250

== ENCOUNTER 2020-05-13 10:17 | Emergency (ER) | payer BC ==
[~2020-05-13] VITALS: Ht 175 cm; Wt 95.2 kg
[~2020-05-13 10:17] MED LIST changes: -CATHETER FLUSH 10 ML SYR IV PRN; -HOLD METFORMIN - RECEIVED CONTRAST 20 ML VIAL IV SCH; -IOHEXOL 350 MG/ML 100 ML (OMNIPAQUE 350) VIAL IV ONE; -LEVO500T80 PO; -NS 100 ML (IVPB) BAG IV ONE; -RT-ALBUTEROL SULF 2.5 MG/3 ML PRE-MIX VIAL INH ONE
[2020-05-13 10:39] VITALS: BP 144/101
[2020-05-13 11:54] LABS: BASOPHILS # (AUTO) 0.1 10^3/uL (0.0-0.1); BASOPHILS % (AUTO) 1 % (0-10); EOSINOPHILS # (AUTO) 1.5 10^3/uL (0.0-0.3); EOSINOPHILS % (AUTO) 17 % (0-10); HEMATOCRIT 42 % (40-54); HEMOGLOBIN 13.1 g/dL (13.3-17.7); LYMPHOCYTES # (AUTO) 2.3 10^3/uL (1.0-4.0); LYMPHOCYTES % (AUTO) 27 % (12-44); MEAN CORPUSCULAR HEMOGLOBIN 29 pg (25-34); MEAN CORPUSCULAR HGB CONC 31 g/dL (32-36); MEAN CORPUSCULAR VOLUME 94 fL (80-99); MEAN PLATELET VOLUME 10.3 fL (9.0-12.2); MONOCYTES # (AUTO) 0.5 10^3/uL (0.0-1.0); MONOCYTES % (AUTO) 6 % (0-12); NEUTROPHILS # (AUTO) 4.3 10^3/uL (1.8-7.8); NEUTROPHILS % (AUTO) 50 % (42-75); PLATELET COUNT 267 10^3/uL (130-400); WHITE BLOOD COUNT 8.7 10^3/uL (4.3-11.0)
[2020-05-13 11:58] LABS: CHLORIDE 102 MMOL/L (98-107); POTASSIUM 3.6 MMOL/L (3.6-5.0); SODIUM 135 MMOL/L (135-145)
[2020-05-13 12:00] LABS: CALCIUM 8.8 MG/DL (8.5-10.1); GLUCOSE 85 MG/DL (70-105)
[2020-05-13 12:02] LABS: CARBON DIOXIDE 22 MMOL/L (21-32)
[2020-05-13 12:04] LABS: CREATININE SERUM 0.88 MG/DL (0.60-1.30); GFR ESTIMATED > 60
[2020-05-13 12:05] LABS: BUN/CREATININE RATIO 18
[2020-05-13 12:12] LABS: CREATINE KINASE MB 2.9 NG/ML (<6.6)
--- NOTE | 2020-05-13 12:13 | ED Chest Pain ---
General Chief Complaint: Chest Pain Stated Complaint: CP,FATIGUE Nursing Triage Note: PT PRESENTS TO ED WITH COMPLAITNS OF L SIDED CP SINCE YESTERDAY, FATIGUE X 1 MONTH, Nursing Sepsis Screen: No Definite Risk Source: patient Exam Limitations: no limitations History of Present Illness Date Seen by Provider: May 13, 2020 Time Seen by Provider: 11:00 Initial Comments Patient is a 40-year-old male who presents to the emergency department today with a chief complaint of chest pain congestion upper respiratory symptoms, cough. Patient states that he has had intermittent chest pain since yesterday. He states that he works night shifts and was getting off at 6 AM this morning and had a sharp and pressure-like sensation. He has had a productive cough. He denies any fevers or chills, sore throat. He denies any COVID-19 contacts. He states his father was in the hospital 1 week ago with pneumonia and stayed overnight. Patient tells me that he had a hospital visit in January of this past year was transferred to [facility] for suspected acute coronary syndrome and underwent stress testing which was normal. Patient states that the chest pain is precipitated by activity. It does not radiate. Is not associated with any shortness of breath, nausea or sweating. The patient is a non-smoker. Patient states that his father has a history of heart disease. Patient is currently not having chest pain. Patient states that the pain comes and goes. Patient tells me that he was in the hospital this morning for outpatient CAT scan of the chest as well as pulmonary function test to further evaluate his COPD when he told the tech that he had been having some chest pain and they sent him to the ER for further evaluation. He did have a CT chest done this morning. All other review of systems reviewed and negative except as stated above. Timing/Duration: 24 hours Severity/Quality: moderate, pressure, sharp Location: substernal Radiation: no radiation Activities at Onset: activity Prior CP/Workup: stress test Modifying Factors: worse with breathing, worse with coughing, worse with exercise ASA po SYSTEM DISPATCHER: No NTG SL SYSTEM DISPATCHER: No Allergies and Home Medications Allergies Coded Allergies: No Known Drug Allergies (Unverified , 05/04/11) Home Medications Albuterol Sulfate 2.5 Mg/3 Ml Vial.neb, 2.5 MG IH Q4H PRN for WHEEZING Prescribed by: KEIRA PENA on 07/27/17 1448 Albuterol Sulfate 2.5 Mg/3 Ml Vial.neb, 2.5 MG INH Q4H PRN for WHEEZING Prescribed by: EKIRA PENA on 12/27/18 173 Azithromycin 250 Mg Tablet, 250 MG PO UD TAKE 2 TABLETS TODAY, THEN TAKE 1 TABLET DAILY FOR 4 MORE DAYS Prescribed by: KEIRA PENA on 04/02/18 224 Cefuroxime Axetil 250 Mg Tablet, 250 MG PO BID Prescribed by: KEIRA PENA on 04/05/192005 Levofloxacin 500 Mg Tablet, 500 MG PO DAILY Prescribed by: MIKE CHIN on 05/13/20 1215 Levothyroxine Sodium 50 Mcg Tablet, 50 MCG PO DAILY, (Reported) Ondansetron 4 Mg Tab.rapdis, 4 MG PO Q6H PRN for NAUSEA/VOMITING Prescribed by: EDWIN PETER on 08/16/18 143 Pramoxine HCl 15 Gm Foam, 1 APPLIC TP QID Prescribed by: EARNESTINE WILKERSON on 06/03/17 2315 Prednisone 20 Mg Tab, 40 MG PO DAILY Prescribed by: KEIRA PENA on 07/27/17 1448 Prednisone 5 Mg Tablet, 5 MG PO UD 40 mg daily for 4 days. Prescribed by: KEIRA PENA on 04/02/18 224 Prednisone 20 Mg Tab, 40 MG PO DAILY Prescribed by: EDWIN PETER on 07/06/18 0225 Prednisone 20 Mg Tab, 40 MG PO DAILY Prescribed by: EDWIN PETER on 08/16/18 1435 Prednisone 20 Mg Tab, 40 MG PO DAILY Prescribed by: KEIRA PENA on 12/27/18 173 Prednisone 20 Mg Tab, 40 MG PO DAILY Prescribed by: KEIRA PENA on 04/05/192005 Patient Home Medication List Home Medication List Reviewed: Yes Review of Systems Review of Systems Constitutional: see HPI EENTM: Nose Congestion Respiratory: Cough, Shortness of Air Cardiovascular: Chest Pain Gastrointestinal: No Symptoms Reported Genitourinary: No Symptoms Reported Musculoskeletal: no symptoms reported Skin: no symptoms reported All Other Systems Reviewed Negative Unless Noted: Yes Past Aqakqqn-Hnyntd-Sjiwuv Hx Patient Social History Alcohol Use: Rarely Uses Recreational Drug Use: No Smoking Status: Never a Smoker 2nd Hand Smoke Exposure: No Recent Foreign Travel: No Contact w/Someone Who Travel: No Recent Infectious Disease Expo: No Recent Hopitalizations: No Physical Abuse: No Sexual Abuse: No Mistreated: No Fear: No Immunizations Up To Date Tetanus Booster (TDap): Less than 5yrs PED Vaccines UTD: Yes Seasonal Allergies Seasonal Allergies: No Past Medical History Surgeries: Yes (HEART CATH 2011) Respiratory: Yes Sleep Apnea, COPD Currently Using CPAP: Yes Currently Using BIPAP: No Cardiac: Yes Hypertension Neurological: No Reproductive Disorders: No Genitourinary: No Gastrointestinal: No Musculoskeletal: No Endocrine: Yes Hypothyroidsim HEENT: No Cancer: No Psychosocial: Yes Anxiety Integumentary: No Blood Disorders: No Family Medical History No Pertinent Family Hx Physical Exam Vital Signs Vital Signs - First Documented Capillary Refill : Less Than 3 Seconds Height, Weight, BMI Height: 5'9.00" Weight: 210lbs. 0oz. [id number]; 31.00 BMI Method:Stated General Appearance: No Apparent Distress, WD/WN HEENT: PERRL/EOMI, Other (Nasal mucosal congestion) Neck: Full Range of Motion, Non Tender, Supple Respiratory: Chest Non Tender, Lungs Clear, Normal Breath Sounds (Diminished breath sounds throughout), No Accessory Muscle Use, No Respiratory Distress Cardiovascular: Regular Rate, Rhythm, No Murmur Gastrointestinal: Normal Bowel Sounds Extremity: Normal Capillary Refill, Normal Inspection, Normal Range of Motion, Non Tender, No Calf Tenderness Neurologic/Psychiatric: Alert, Oriented x3, No Motor/Sensory Deficits, Normal Mood/Affect Skin: Normal Color, Warm/Dry Progress/Results/Core Measures Results/Orders Lab Results Laboratory Tests Test 05/13/20 10:06 05/13/20 11:47 Range/Units White Blood Count 8.7 4.3-11.0 10^3/uL Red Blood Count 4.46 4.30-5.52 10^6/uL Hemoglobin 13.1 L 13.3-17.7 g/dL Hematocrit 42 40-54 % Mean Corpuscular Volume 94 80-99 fL Mean Corpuscular Hemoglobin 29 25-34 pg Mean Corpuscular Hemoglobin Concent 31 L 32-36 g/dL Red Cell Distribution Width 12.4 10.0-14.5 % Platelet Count 267 130-400 10^3/uL Mean Platelet Volume 10.3 9.0-12.2 fL Immature Granulocyte % (Auto) 0 % Neutrophils (%) (Auto) 50 42-75 % Lymphocytes (%) (Auto) 27 12-44 % Monocytes (%) (Auto) 6 0-12 % Eosinophils (%) (Auto) 17 H 0-10 % Basophils (%) (Auto) 1 0-10 % Neutrophils # (Auto) 4.3 1.8-7.8 10^3/uL Lymphocytes # (Auto) 2.3 1.0-4.0 10^3/uL Monocytes # (Auto) 0.5 0.0-1.0 10^3/uL Eosinophils # (Auto) 1.5 H 0.0-0.3 10^3/uL Basophils # (Auto) 0.1 0.0-0.1 10^3/uL Immature Granulocyte # (Auto) 0.0 0.0-0.1 10^3/uL Sodium Level 135 135-145 MMOL/L Potassium Level 3.6 3.6-5.0 MMOL/L Chloride Level 102 98-107 MMOL/L Carbon Dioxide Level 22 21-32 MMOL/L Anion Gap 11 5-14 MMOL/L Blood Urea Nitrogen 16 7-18 MG/DL Creatinine 0.88 0.60-1.30 MG/DL Estimat Glomerular Filtration Rate > 60 BUN/Creatinine Ratio 18 Glucose Level 85 70-105 MG/DL Calcium Level 8.8 8.5-10.1 MG/DL Creatine Kinase MB 2.9 <6.6 NG/ML Troponin I < 0.028 <0.028 NG/ML Coronavirus 2019 (GANESH) Negative Negative My Orders Orders - MIKE CHIN MD Cbc With Automated Diff (05/13/20 11:47) Basic Metabolic Panel (05/13/20 11:47) Troponin I (05/13/20 11:47) Creatine Kinase Mb (05/13/20 11:47) Ekg Tracing (05/13/20 11:47) Ed Iv/Invasive Line Start (05/13/20 11:47) Covid 19 Inhouse Test (05/13/20 11:47) Manual Differential (05/13/20 10:06) Vital Signs/I&O 05/13/20 05/13/20 10:39 10:39 Temp 35.8 Pulse 69 Resp 20 B/P (MAP) 144/101 (115) Pulse Ox 98 O2 Delivery Room Air Room Air Blood Pressure Mean: 115 Progress Progress Note : Time: 12:15 Progress Note 40-year-old male presents to the emergency room with upper respiratory tract symptoms as well as some chest discomfort. Evaluation today includes a physical exam, EKG, CBC, Chem-7, troponin. Patient is stable from a cardiac standpoint. His heart score is less than 3. This puts patient in the low risk category for acute coronary syndrome. Patient has had recent stress testing in January 2020. He is a non-smoker, no history of hypertension, does have a history of COPD. No ongoing chest pain and in light of this and a normal EKG and normal labs patient will be discharged home with follow-up with his primary care provider. Patient verbalizes understanding and is comfortable with the plan of care. All question s are sought and answered and he is stable for discharge. Initial ECG Impression Date: May 13, 2020 Initial ECG Impression Time: 11:00 Initial ECG Rate: 64 Initial ECG Rhythm: Normal Sinus Initial ECG Intervals: Normal Initial ECG Impression: Normal Departure Impression Primary Impression: Upper respiratory infection Qualified Codes: J06.9 - Acute upper respiratory infection, unspecified Disposition: HOME, SELF-CARE Condition: Stable Departure-Patient Inst. Decision time for Depature: 12:20 Referrals: [facility] (PCP) Primary Care Physician ROMERO LOERA APRN (Family) Primary Care Physician Patient Instructions: Chest Pain That Is Not Caused by the Heart (DC), Cough, Runny Nose, and the Common Cold (DC) Add. Discharge Instructions: Drink plenty of fluids to stay well-hydrated. Please take the antibiotics I have prescribed daily for the next 7 days. Use your inhalers as directed. If you have any worsening cough, shortness of breath, chest pain or any other emergent concerning symptoms please return to the emergency room for reevaluation. Please call and follow-up with your primary care physician regarding your work- up today as well as your CAT scan and future pulmonary function studies. All discharge instructions reviewed with patient and/or family. Voiced understanding. Scripts Levofloxacin (Levofloxacin) 500 Mg Tablet 500 MG PO DAILY for 7 Days, #7 TAB Prov: MIKE CHIN MD 05/13/20 MIKE CHIN MD May 13, 2020 12:13
[2020-05-13] MEDS ORDERED: LEVO500T80 PO (12:15)
[2020-05-13 12:22] LABS: BAND NEUTROPHILS 0 %; BASOPHILS % (MANUAL) 1 %; EOSINOPHILS % (MANUAL) 20 %; LYMPHOCYTES % (MANUAL) 28 %; MONOCYTES % (MANUAL) 2 %; NEUTROPHILS % (MANUAL) 49 %; RBC MORPH NORMAL
== END 2020-05-13 12:47 | disposition home or self-care (01) ==
LOC: EDUNIT# 10:17 → ER 10:19
DX: J06.9 Acute upper respiratory infection, unspecified (principal); E03.9 Hypothyroidism, unspecified; J44.9 Chronic obstructive pulmonary disease, unspecified; Z20.828 Contact with and (suspected) exposure to other viral communicable diseases; Z95.9 Presence of cardiac and vascular implant and graft, unspecified; Z79.890 Hormone replacement therapy; Z79.52 Long term (current) use of systemic steroids
CPT/HCPCS: 80048; 82553; 84484; 85007; 85027; 93005; 99284; U0002; 36415; 87635

== ENCOUNTER → 2020-05-13 | Outpatient (CLI) | payer BC ==
[~2020-05-13] MED LIST changes: +CATHETER FLUSH 10 ML SYR IV PRN; +HOLD METFORMIN - RECEIVED CONTRAST 20 ML VIAL IV SCH; +IOHEXOL 350 MG/ML 100 ML (OMNIPAQUE 350) VIAL IV ONE; +LEVO500T80 PO; +NS 100 ML (IVPB) BAG IV ONE; +RT-ALBUTEROL SULF 2.5 MG/3 ML PRE-MIX VIAL INH ONE
--- NOTE | 2020-05-13 09:39 | Diagnostic Imaging Report ---
PROCEDURE: CT chest with contrast only. TECHNIQUE: Multiple contiguous axial images were obtained through the chest after administration of intravenous contrast. Auto Exposure Controls were utilized during the CT exam to meet ALARA standards for radiation dose reduction. INDICATION: Chronic bronchitis, asthma, ALLERGY and pulmonary nodules. COMPARISON: 03/10/2020 FINDINGS: There is continued coarse interstitial disease involving primarily the upper half of right upper lobe. The dominant nodule seen previously in the periphery of the left lung at the level of jcarlos has resolved. There are, however multiple additional nodular foci seen in both lungs. This includes nodules measuring 0.9 cm in diameter in the right lower lobe as well as an approximately 0.6 cm nodule in the right middle lobe and an approximately 0.4 cm nodule in the medial base of the left lower lobe. There is no evidence of consolidation. Dominant mass is not identified. Micronodular appearance of the anterior mediastinal fat has not significantly changed. No pathologically enlarged adenopathy is identified. IMPRESSION: Subacute and/or chronic interstitial lung disease in right upper lobe is likely related to pneumonitis. Additional subcentimeter scattered nodules in both lungs have developed since 03/10/2020 while additional nodularity has decreased in the same interval. Findings are suggestive of likely infectious etiology other nodules related to autoimmune disease or hypersensitivity could have a similar appearance. Dictated by: Dictated on workstation # [id number]
== END ==
LOC: RT 09:45
PROVIDERS: ATTEND Nurse Practitioner Family
DX: J45.909 Unspecified asthma, uncomplicated (principal); J42 Unspecified chronic bronchitis; J84.9 Interstitial pulmonary disease, unspecified; R91.8 Other nonspecific abnormal finding of lung field; G47.33 Obstructive sleep apnea (adult) (pediatric); J30.2 Other seasonal allergic rhinitis; Z20.828 Contact with and (suspected) exposure to other viral communicable diseases
CPT/HCPCS: 71260

== ENCOUNTER → 2020-05-28 | Outpatient (CLI) | payer BC ==
[~2020-05-28] MED LIST changes: +LEVO500T80 PO
--- NOTE | 2020-05-28 17:58 | Diagnostic Imaging Report ---
INDICATION: Pneumonia. COMPARISON: April 14, 2019. TECHNIQUE: Two radiographs of the chest dated May 28, 2020. FINDINGS: The cardiac silhouette and pulmonary vasculature are within normal limits. The lungs are clear of focal pulmonary opacity. No pleural effusion. No pneumothorax. No acute osseous abnormality. IMPRESSION: No acute cardiopulmonary abnormality. Dictated by: Dictated on workstation # [id number]
== END ==
LOC: PULM 17:20
PROVIDERS: ATTEND Nurse Practitioner Family
DX: J18.9 Pneumonia, unspecified organism (principal)
CPT/HCPCS: 71046

== ENCOUNTER 2020-06-14 22:32 | Emergency (ER) | payer BC ==
[~2020-06-14] VITALS: Ht 175 cm; Wt 95.3 kg
[2020-06-14] MEDS ORDERED: ASPIRIN 81 MG CHEW (CHILDREN'S ASA) ONE (22:45)
[2020-06-14 22:56] LABS: BASOPHILS # (AUTO) 0.1 10^3/uL (0.0-0.1); BASOPHILS % (AUTO) 1 % (0-10); CHLORIDE 106 MMOL/L (98-107); EOSINOPHILS # (AUTO) 0.2 10^3/uL (0.0-0.3); EOSINOPHILS % (AUTO) 2 % (0-10); HEMATOCRIT 41 % (40-54); HEMOGLOBIN 13.5 g/dL (13.3-17.7); LYMPHOCYTES # (AUTO) 0.7 10^3/uL (1.0-4.0); LYMPHOCYTES % (AUTO) 7 % (12-44); MEAN CORPUSCULAR HEMOGLOBIN 30 pg (25-34); MEAN CORPUSCULAR HGB CONC 33 g/dL (32-36); MEAN CORPUSCULAR VOLUME 90 fL (80-99); MEAN PLATELET VOLUME 9.9 fL (9.0-12.2); MONOCYTES # (AUTO) 0.4 10^3/uL (0.0-1.0); MONOCYTES % (AUTO) 4 % (0-12); NEUTROPHILS # (AUTO) 8.8 10^3/uL (1.8-7.8); NEUTROPHILS % (AUTO) 87 % (42-75); PLATELET COUNT 210 10^3/uL (130-400); POTASSIUM 3.9 MMOL/L (3.6-5.0); SODIUM 139 MMOL/L (135-145); WHITE BLOOD COUNT 10.2 10^3/uL (4.3-11.0)
[2020-06-14 22:57] LABS: CALCIUM 8.9 MG/DL (8.5-10.1); GLUCOSE 103 MG/DL (70-105)
[2020-06-14 22:59] LABS: CARBON DIOXIDE 24 MMOL/L (21-32)
[2020-06-14 23:01] LABS: CREATININE SERUM 0.87 MG/DL (0.60-1.30); GFR ESTIMATED > 60
[2020-06-14 23:02] LABS: BUN/CREATININE RATIO 14
[2020-06-14 23:07] LABS: BAND NEUTROPHILS 5 %; BASOPHILS % (MANUAL) 0 %; EOSINOPHILS % (MANUAL) 2 %; LYMPHOCYTES % (MANUAL) 7 %; MONOCYTES % (MANUAL) 3 %; NEUTROPHILS % (MANUAL) 83 %
[2020-06-14 23:08] LABS: ROULEAUX SLIGHT
--- NOTE | 2020-06-14 23:24 | ED Chest Pain ---
General Chief Complaint: Chest Pain Stated Complaint: CP Nursing Triage Note: left sided chest pain x1 day, worse today. seen at [facility] [place]. Nursing Sepsis Screen: No Definite Risk Source: patient Exam Limitations: no limitations History of Present Illness Date Seen by Provider: Jun 14, 2020 Time Seen by Provider: 22:45 Initial Comments 40yo male presents to the ER with a complaint of left sided chest pain that is sharp and radiates into his left neck. Causes his left arm to be "numb". Patient states the pain started around 330pm today. not exertional. Patient states he was seen earlier at [facility]. Patient states he was diagnosed with "chest wall pain". He was given toradol which partially alleviated his pain. He states that it came back and he decided to be seen again . He states that he "just does not feel good". endorses nausea and shortness of breath. Taking a deep breath makes his pain worse. He states that he has a history of COPD. Is not a diabetic. Per review of the medical record was seen by me about 1 month ago for similar pain. Patient has had previous stress testing that was normal. All other review of systems reviewed and negative except as stated above. 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: No Associated Symptoms: nausea/vomiting (nausea), shortness of breath Allergies and Home Medications Allergies Coded Allergies: No Known Drug Allergies (Unverified , 05/04/11) Home Medications Albuterol Sulfate 2.5 Mg/3 Ml Vial.neb, 2.5 MG IH Q4H PRN for WHEEZING Prescribed by: KEIRA PENA on 07/27/17 1448 Albuterol Sulfate 2.5 Mg/3 Ml Vial.neb, 2.5 MG INH Q4H PRN for WHEEZING Prescribed by: KEIRA PENA on 12/27/18 173 Azithromycin 250 Mg Tablet, 250 MG PO UD TAKE 2 TABLETS TODAY, THEN TAKE 1 TABLET DAILY FOR 4 MORE DAYS Prescribed by: KEIRA PENA on 04/02/18 224 Cefuroxime Axetil 250 Mg Tablet, 250 MG PO BID Prescribed by: KEIRA PENA on 04/05/192005 Levofloxacin 500 Mg Tablet, 500 MG PO DAILY Prescribed by: MIKE CHIN on 05/13/20 1215 Levothyroxine Sodium 50 Mcg Tablet, 50 MCG PO DAILY, (Reported) Ondansetron 4 Mg Tab.rapdis, 4 MG PO Q6H PRN for NAUSEA/VOMITING Prescribed by: EDWIN PETER on 08/16/18 1435 Pramoxine HCl 15 Gm Foam, 1 APPLIC TP QID Prescribed by: EARNESTINE WILKERSON on 06/03/17 2315 Prednisone 20 Mg Tab, 40 MG PO DAILY Prescribed by: KEIRA PENA on 07/27/17 1448 Prednisone 5 Mg Tablet, 5 MG PO UD 40 mg daily for 4 days. Prescribed by: KEIRA PENA on 04/02/18 2241 Prednisone 20 Mg Tab, 40 MG PO DAILY Prescribed by: EDWIN PETER on 07/06/18 0225 Prednisone 20 Mg Tab, 40 MG PO DAILY Prescribed by: EDWIN PETER on 08/16/18 1435 Prednisone 20 Mg Tab, 40 MG PO DAILY Prescribed by: KEIRA PENA on 12/27/18 1736 Prednisone 20 Mg Tab, 40 MG PO DAILY Prescribed by: KEIRA PENA on 04/05/192005 Patient Home Medication List Home Medication List Reviewed: Yes Review of Systems Review of Systems Constitutional: see HPI EENTM: Nose Congestion Respiratory: Cough (mild), SOA at Rest Cardiovascular: Chest Pain Gastrointestinal: No Symptoms Reported Genitourinary: No Symptoms Reported Musculoskeletal: no symptoms reported Skin: no symptoms reported All Other Systems Reviewed Negative Unless Noted: Yes Past Injeumm-Udzpzh-Hmhrer Hx Patient Social History Alcohol Use: Denies Use Recreational Drug Use: No Smoking Status: Never a Smoker 2nd Hand Smoke Exposure: No Recent Foreign Travel: No Contact w/Someone Who Travel: No Recent Infectious Disease Expo: No Recent Hopitalizations: No Immunizations Up To Date Tetanus Booster (TDap): Less than 5yrs PED Vaccines UTD: Yes Seasonal Allergies Seasonal Allergies: No Past Medical History Surgeries: Yes (HEART CATH 2011) Respiratory: Yes Sleep Apnea, COPD Currently Using CPAP: Yes Currently Using BIPAP: No Cardiac: Yes Hypertension Neurological: No Reproductive Disorders: No Genitourinary: No Gastrointestinal: No Musculoskeletal: No Endocrine: Yes Hypothyroidsim HEENT: No Cancer: No Psychosocial: Yes Anxiety Integumentary: No Blood Disorders: No Family Medical History No Pertinent Family Hx Physical Exam Vital Signs Vital Signs - First Documented 06/14/20 22:35 Temp 38.1 Pulse 118 Resp 20 B/P (MAP) 165/100 (121) Pulse Ox 97 O2 Delivery Room Air Capillary Refill : Less Than 3 Seconds Height, Weight, BMI Height: 5'9.00" Weight: 210lbs. 0oz. 95.071418tr; 31.00 BMI Method:Stated General Appearance: No Apparent Distress, WD/WN Neck: Full Range of Motion Respiratory: Lungs Clear, Normal Breath Sounds, No Accessory Muscle Use, No Respiratory Distress Cardiovascular: Regular Rate, Rhythm, No Murmur Gastrointestinal: Normal Bowel Sounds, Non Tender, Soft Extremity: Normal Capillary Refill, Normal Inspection, Normal Range of Motion, Non Tender, No Calf Tenderness, No Pedal Edema Neurologic/Psychiatric: Alert, Oriented x3, No Motor/Sensory Deficits, Normal Mood/Affect, tufting creeler II-XII Norm as Tested Skin: Normal Color, Warm/Dry Progress/Results/Core Measures Results/Orders Lab Results Laboratory Tests Test 06/14/20 22:38 06/14/20 22:39 06/14/20 22:52 Range/Units White Blood Count 10.2 4.3-11.0 10^3/uL Red Blood Count 4.57 4.30-5.52 10^6/uL Hemoglobin 13.5 13.3-17.7 g/dL Hematocrit 41 40-54 % Mean Corpuscular Volume 90 80-99 fL Mean Corpuscular Hemoglobin 30 25-34 pg Mean Corpuscular Hemoglobin Concent 33 32-36 g/dL Red Cell Distribution Width 13.0 10.0-14.5 % Platelet Count 210 130-400 10^3/uL Mean Platelet Volume 9.9 9.0-12.2 fL Immature Granulocyte % (Auto) 1 % Neutrophils (%) (Auto) 87 H 42-75 % Lymphocytes (%) (Auto) 7 L 12-44 % Monocytes (%) (Auto) 4 0-12 % Eosinophils (%) (Auto) 2 0-10 % Basophils (%) (Auto) 1 0-10 % Neutrophils # (Auto) 8.8 H 1.8-7.8 10^3/uL Lymphocytes # (Auto) 0.7 L 1.0-4.0 10^3/uL Monocytes # (Auto) 0.4 0.0-1.0 10^3/uL Eosinophils # (Auto) 0.2 0.0-0.3 10^3/uL Basophils # (Auto) 0.1 0.0-0.1 10^3/uL Immature Granulocyte # (Auto) 0.1 0.0-0.1 10^3/uL Neutrophils % (Manual) 83 % Lymphocytes % (Manual) 7 % Monocytes % (Manual) 3 % Eosinophils % (Manual) 2 % Basophils % (Manual) 0 % Band Neutrophils 5 % Rouleau SLIGHT D-Dimer 0.97 H 0.00-0.49 UG/ML Sodium Level 139 135-145 MMOL/L Potassium Level 3.9 3.6-5.0 MMOL/L Chloride Level 106 98-107 MMOL/L Carbon Dioxide Level 24 21-32 MMOL/L Anion Gap 9 5-14 MMOL/L Blood Urea Nitrogen 12 7-18 MG/DL Creatinine 0.87 0.60-1.30 MG/DL Estimat Glomerular Filtration Rate > 60 BUN/Creatinine Ratio 14 Glucose Level 103 70-105 MG/DL Calcium Level 8.9 8.5-10.1 MG/DL Total Creatine Kinase 77 30-200 U/L Creatine Kinase MB 2.3 <6.6 NG/ML Troponin I < 0.028 <0.028 NG/ML Coronavirus 2019 (GANESH) Negative Negative My Orders Orders - MIKE CHIN MD Aspirin Chewable Tablet (Baby Aspirin Ch (06/14/20 22:45) Ed Iv/Invasive Line Start (06/14/20 22:46) Cbc With Automated Diff (06/14/20 22:46) Basic Metabolic Panel (06/14/20 22:46) Chest 1 View, Ap/Pa Only (06/14/20 22:46) Ekg Tracing (06/14/20 22:46) Aspirin Chewable Tablet (Baby Aspirin Ch (06/15/20 09:00) Fibrin Degradation Products (06/14/20 22:46) Covid 19 Inhouse Test (06/14/20 22:46) Manual Differential (06/14/20 22:38) Troponin I (06/14/20 23:24) Creatine Kinase (06/14/20 23:24) Creatine Kinase Mb (06/14/20 23:24) Iohexol Injection (Omnipaque 350 Mg/Ml 1 (06/14/20 23:45) Received Contrast (Hold Metformin- Contr (06/14/20 23:45) Ns (Ivpb) (Sodium Chloride 0.9% Ivpb Bag (06/14/20 23:45) Ct Angio Chest W (06/15/20 ) Ondansetron Injection (Zofran Injectio (06/15/20 01:00) Tramadol Tablet (Ultram Tablet) (06/15/20 01:00) Medications Given in ED Current Medications Medications Dose Ordered Sig/Anatoly Route Start Time Stop Time Status Last Admin Dose Admin Iohexol 100 ml ONCE ONCE IV 06/14/20 23:45 06/14/20 23:46 DC 06/15/20 00:55 83 ML Ondansetron HCl 4 mg ONCE ONCE IVP 06/15/20 01:00 06/15/20 01:01 DC 06/15/20 01:04 4 MG Sodium Chloride 100 ml ONCE ONCE IV 06/14/20 23:45 06/14/20 23:46 DC 06/15/20 00:55 80 ML Tramadol HCl 50 mg ONCE ONCE PO 06/15/20 01:00 06/15/20 01:01 DC 06/15/20 01:05 50 MG Vital Signs/I&O 06/14/20 06/14/20 22:35 22:35 Temp 38.1 Pulse 118 Resp 20 B/P (MAP) 165/100 (121) Pulse Ox 97 O2 Delivery Room Air Room Air Blood Pressure Mean: 121 Initial ECG Impression Date: Jun 14, 2020 Initial ECG Impression Time: 22:33 Initial ECG Rate: 121 Initial ECG Rhythm: S.Tach Initial ECG Intervals: Normal Initial ECG Impression: Normal Initial ECG Comparisson: Unchanged Diagnostic Imaging Diagonstic Imaging: Xray, CT Plain Films/CT/US/NM/MRI: chest Comments CT chest angio, no pulmonary embolus noted Departure Impression Primary Impression: Chest pain Qualified Codes: R07.9 - Chest pain, unspecified Disposition: HOME, SELF-CARE Condition: Stable Departure-Patient Inst. Decision time for Depature: 01:19 Referrals: [facility] (PCP) Primary Care Physician ROMERO LOERA APRN (Family) Primary Care Physician Patient Instructions: Chest Pain That Is Not Caused by the Heart (DC) Add. Discharge Instructions: Drink plenty of fluids to stay well-hydrated. Take [id number] Tylenol and/or ibuprofen as needed for pain. 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 Return to the emergency department for any new, emergent concerning complaints. MIKE CHIN MD Jun 14, 2020 23:23
[2020-06-14 23:41] LABS: CREATINE KINASE 77 U/L (30-200)
[2020-06-14] MEDS ORDERED: HOLD METFORMIN - RECEIVED CONTRAST 20 ML VIAL IV SCH (23:45)
[2020-06-14] MEDS ORDERED: IOHEXOL 350 MG/ML 100 ML (OMNIPAQUE 350) VIAL IV ONE (23:45)
[2020-06-14] MEDS ORDERED: NS 100 ML (IVPB) BAG IV ONE (23:45)
[2020-06-14 23:47] LABS: CREATINE KINASE MB 2.3 NG/ML (<6.6)
[2020-06-15] MEDS ORDERED: ONDANSETRON 4 MG/2 ML (SDV) Z0FRAN IVP ONE (01:00)
[2020-06-15 01:27] VITALS: BP 137/96
--- NOTE | 2020-06-15 07:11 | Diagnostic Imaging Report ---
Indication: Chest pain. Examination: Chest from 06/14/2020. Comparison: 05/28/2020 FINDINGS: The heart size is normal. The lungs are clear. No pleural effusion or pneumothorax is identified. The pulmonary vascularity is normal. IMPRESSION: No acute abnormality detected. Dictated by: Dictated on workstation # [id number]
--- NOTE | 2020-06-15 07:39 | Diagnostic Imaging Report ---
PROCEDURE: CT angiography of the chest with contrast. TECHNIQUE: Multiple contiguous axial images were obtained through the chest after uneventful bolus administration of intravenous contrast. 3D reconstructed CTA MIP acquisitions were also performed. Auto Exposure Controls were utilized during the CT exam to meet ALARA standards for radiation dose reduction. INDICATION: Short of breath, tachycardia. EXAMINATION: CT angiogram of the chest from 06/15/2020 COMPARISON: 05/13/2020 FINDINGS: Scattered centrilobular nodularity is noted throughout the right upper lobe and also within the superior segment of the left lower lobe medially. Some these findings were present on previous CT, others are new, suggesting likely underlying infectious or inflammatory etiology. Followup recommended to assure complete resolution. There are no pericardial or pleural effusions. The pulmonary arteries are not well evaluated due to a missed bolus. No definite central emboli appreciated The visualized upper abdominal structures demonstrate no evidence for acute abnormality. Fatty infiltration throughout the liver is noted. No acute osseous abnormality. IMPRESSION: 1. No central pulmonary emboli. The peripheral vessels not well evaluated due to a poor bolus. If there is continued concern followup recommended. 2. Scattered bilateral centrilobular nodularities suggesting underlying inflammatory or infectious process. Followup recommended to assure complete resolution. Other findings as above. Pertinent findings agree with the preliminary report. Dictated by: Dictated on workstation # [id number]
[2020-06-15] MEDS ORDERED: ASPIRIN 81 MG CHEW (CHILDREN'S ASA) PO SCH (09:00)
== END 2020-06-15 01:29 | disposition home or self-care (01) ==
LOC: EDUNIT# 22:33 → ER 22:35
DX: R07.89 Other chest pain (principal); R11.2 Nausea with vomiting, unspecified; R06.02 Shortness of breath; R05 Cough; R09.81 Nasal congestion; R68.84 Jaw pain; R20.2 Paresthesia of skin; M54.2 Cervicalgia; M25.512 Pain in left shoulder; M79.602 Pain in left arm; I10 Essential (primary) hypertension; F41.9 Anxiety disorder, unspecified; E03.9 Hypothyroidism, unspecified; J44.9 Chronic obstructive pulmonary disease, unspecified; Z20.828 Contact with and (suspected) exposure to other viral communicable diseases; Z95.9 Presence of cardiac and vascular implant and graft, unspecified; Z79.52 Long term (current) use of systemic steroids; Z79.890 Hormone replacement therapy
CPT/HCPCS: 71045; 71275; 80048; 82550; 82553; 84484; 85007; 85027; 85379; 93005; 99283; U0002; 36415; 87635

== ENCOUNTER → 2020-06-16 | Outpatient (CLI) | payer BC ==
[~2020-06-16] MED LIST changes: +RT-ALBUTEROL SULF 2.5 MG/3 ML PRE-MIX VIAL INH ONE
== END ==
LOC: RT 14:50
PROVIDERS: ATTEND Nurse Practitioner Family
DX: J45.909 Unspecified asthma, uncomplicated (principal); G47.33 Obstructive sleep apnea (adult) (pediatric); J42 Unspecified chronic bronchitis; R91.8 Other nonspecific abnormal finding of lung field
CPT/HCPCS: 94060; 94729

== ENCOUNTER → 2020-09-01 | Outpatient (CLI) | payer BC ==
[~2020-09-01] MED LIST changes: +CATHETER FLUSH 10 ML SYR IV PRN; +HOLD METFORMIN - RECEIVED CONTRAST 20 ML VIAL IV SCH; +IOHEXOL 350 MG/ML 100 ML (OMNIPAQUE 350) VIAL IV ONE; +NS 100 ML (IVPB) BAG IV ONE; -RT-ALBUTEROL SULF 2.5 MG/3 ML PRE-MIX VIAL INH ONE
--- NOTE | 2020-09-01 11:31 | Diagnostic Imaging Report ---
EXAMINATION: CT Chest with intravenous contrast. TECHNIQUE: Multiple contiguous axial images were obtained through the chest after the uneventful administration of intravenous contrast. All CT scans use one or more of the following dose optimizing techniques: automated exposure control, MA and/or KvP adjustment based on a patient size and exam type, or iterative reconstruction. HISTORY: COPD, shortness of breath. COMPARISON: CTA chest 06/15/2020. FINDINGS: Thyroid: The thyroid is normal. Mediastinum: Heart size is normal without significant pericardial effusion. The aorta is normal in caliber. No suspicious lymphadenopathy. Lungs and airways: The lungs are clear without consolidation, pleural effusion, or pneumothorax. No suspicious pulmonary lesion. The airways are normal. Upper abdomen: The subphrenic structures are normal. Musculoskeletal: Degenerative changes of the spine without suspicious osseous lesion or compression fracture. IMPRESSION: 1. No acute abnormality in the chest. Dictated by: Dictated on workstation # [id number]
== END ==
LOC: RAD 10:27
PROVIDERS: ATTEND Nurse Practitioner Family
DX: R93.89 Abnormal findings on diagnostic imaging of other specified body structures (principal)
CPT/HCPCS: 71260

== ENCOUNTER 2020-11-06 16:37 | Emergency (ER) | payer BC ==
[~2020-11-06] VITALS: Ht 175.2 cm; Wt 101.1 kg
[~2020-11-06 16:37] MED LIST changes: -CATHETER FLUSH 10 ML SYR IV PRN; -HOLD METFORMIN - RECEIVED CONTRAST 20 ML VIAL IV SCH; -IOHEXOL 350 MG/ML 100 ML (OMNIPAQUE 350) VIAL IV ONE; -NS 100 ML (IVPB) BAG IV ONE
--- NOTE | 2020-11-06 16:56 | ED Respiratory ---
General Chief Complaint: Respiratory Problems Stated Complaint: COPD Source: patient Exam Limitations: no limitations History of Present Illness Date Seen by Provider: November 06, 2020 Time Seen by Provider: 16:55 Initial Comments To ER with cough shortness of breath. Ran out of his nebulizer medication about 3 days ago and will have money to get it filled until next Sunday. Has been wheezing and coughing. No fevers no chills. History of COPD. Timing/Duration: just prior to arrival Severity: moderate Associated Symptoms: cough, shortness of breath Allergies and Home Medications Allergies Coded Allergies: No Known Drug Allergies (Unverified , 05/04/11) Home Medications Albuterol Sulfate 2.5 Mg/3 Ml Vial.neb, 2.5 MG IH Q4H PRN for WHEEZING Prescribed by: KEIRA PENA on 07/27/17 144 Albuterol Sulfate 2.5 Mg/3 Ml Vial.neb, 2.5 MG INH Q4H PRN for WHEEZING Prescribed by: KEIRA PENA on 12/27/18 1736 Azithromycin 250 Mg Tablet, 250 MG PO UD TAKE 2 TABLETS TODAY, THEN TAKE 1 TABLET DAILY FOR 4 MORE DAYS Prescribed by: KEIRA PENA on 04/02/182240 Cefuroxime Axetil 250 Mg Tablet, 250 MG PO BID Prescribed by: KEIRA PENA on 04/05/192005 Levofloxacin 500 Mg Tablet, 500 MG PO DAILY Prescribed by: MIKE CHIN on 05/13/20 1215 Levothyroxine Sodium 50 Mcg Tablet, 50 MCG PO DAILY, (Reported) Ondansetron 4 Mg Tab.rapdis, 4 MG PO Q6H PRN for NAUSEA/VOMITING Prescribed by: EDWIN PETER on 08/16/18 1435 Pramoxine HCl 15 Gm Foam, 1 APPLIC TP QID Prescribed by: EARNESTINE WILKERSON on 06/03/17 2315 Prednisone 20 Mg Tab, 40 MG PO DAILY Prescribed by: KEIRA PENA on 07/27/17 1448 Prednisone 5 Mg Tablet, 5 MG PO UD 40 mg daily for 4 days. Prescribed by: KEIRA PENA on 04/02/18 2241 Prednisone 20 Mg Tab, 40 MG PO DAILY Prescribed by: EDWIN PETER on 07/06/18 0225 Prednisone 20 Mg Tab, 40 MG PO DAILY Prescribed by: EDWIN PETER on 08/16/18 1435 Prednisone 20 Mg Tab, 40 MG PO DAILY Prescribed by: KEIRA PENA on 12/27/18 1736 Prednisone 20 Mg Tab, 40 MG PO DAILY Prescribed by: KEIRA PENA on 04/05/192005 Patient Home Medication List Home Medication List Reviewed: Yes Review of Systems Review of Systems Constitutional: see HPI EENTM: see HPI Respiratory: see HPI, cough, short of breath, wheezing Cardiovascular: no symptoms reported Genitourinary: no symptoms reported Musculoskeletal: no symptoms reported Skin: no symptoms reported Psychiatric/Neurological: No Symptoms Reported Hematologic/Lymphatic: No Symptoms Reported Past Fcfofcu-Oqmjfe-Usxjuc Hx Patient Social History 2nd Hand Smoke Exposure: No Recent Hopitalizations: No Immunizations Up To Date Tetanus Booster (TDap): Less than 5yrs PED Vaccines UTD: Yes Seasonal Allergies Seasonal Allergies: No Past Medical History Surgeries: Yes (HEART CATH 2011) Respiratory: Yes Sleep Apnea, COPD Currently Using CPAP: Yes Currently Using BIPAP: No Cardiac: Yes Hypertension Neurological: No Reproductive Disorders: No Genitourinary: No Gastrointestinal: No Musculoskeletal: No Endocrine: Yes Hypothyroidsim HEENT: No Cancer: No Psychosocial: Yes Anxiety Integumentary: No Blood Disorders: No Family Medical History No Pertinent Family Hx Physical Exam Vital Signs - First Documented 11/06/20 16:42 Temp 36.5 Pulse 92 Resp 20 B/P (MAP) 155/103 (120) Pulse Ox 97 O2 Delivery Room Air Capillary Refill : Height: 5'9.00" Weight: 210lbs. 0oz. [id number]; 31.00 BMI Method:Stated General Appearance: WD/WN, no apparent distress Eyes: Bilateral Eye Normal Inspection, Bilateral Eye PERRL, Bilateral Eye EOMI Respiratory: no respiratory distress, no accessory muscle use, decreased breath sounds, wheezing Gastrointestinal: normal bowel sounds, non tender, soft Neurologic/Psychiatric: alert, normal mood/affect, oriented x 3 Skin: warm/dry Progress/Results/Core Measures Suspected Sepsis SIRS Temperature: Pulse: Respiratory Rate: Laboratory Tests 11/06/20 17:08: White Blood Count 8.0 Blood Pressure / Mean: Laboratory Tests 11/06/20 17:08: Platelet Count 260 Results/Orders Lab Results Laboratory Tests Test 11/06/20 17:08 Range/Units White Blood Count 8.0 4.3-11.0 10^3/uL Red Blood Count 5.07 4.30-5.52 10^6/uL Hemoglobin 14.9 13.3-17.7 g/dL Hematocrit 46 40-54 % Mean Corpuscular Volume 91 80-99 fL Mean Corpuscular Hemoglobin 29 25-34 pg Mean Corpuscular Hemoglobin Concent 33 32-36 g/dL Red Cell Distribution Width 12.7 10.0-14.5 % Platelet Count 260 130-400 10^3/uL Mean Platelet Volume 9.9 9.0-12.2 fL Immature Granulocyte % (Auto) 0 % Neutrophils (%) (Auto) 49 42-75 % Lymphocytes (%) (Auto) 29 12-44 % Monocytes (%) (Auto) 7 0-12 % Eosinophils (%) (Auto) 14 H 0-10 % Basophils (%) (Auto) 2 0-10 % Neutrophils # (Auto) 3.9 1.8-7.8 10^3/uL Lymphocytes # (Auto) 2.3 1.0-4.0 10^3/uL Monocytes # (Auto) 0.6 0.0-1.0 10^3/uL Eosinophils # (Auto) 1.1 H 0.0-0.3 10^3/uL Basophils # (Auto) 0.1 0.0-0.1 10^3/uL Immature Granulocyte # (Auto) 0.0 0.0-0.1 10^3/uL Sodium Level 137 135-145 MMOL/L Potassium Level 3.9 3.6-5.0 MMOL/L Chloride Level 103 98-107 MMOL/L Glucose Level 77 70-105 MG/DL Calcium Level 9.4 8.5-10.1 MG/DL My Orders Orders - KEIRA PENA INSTRUMENTATION DESIGNER Albuterol/Ipra Inhalation Soln (Duoneb I (11/06/20 17:00) Prednisone Tablet (Deltasone Tablet) (11/06/20 17:00) Svn Small Volume Nebulizer (11/06/20 16:47) Cbc With Automated Diff (11/06/20 16:47) Basic Metabolic Panel (11/06/20 16:47) Chest 1 View, Ap/Pa Only (11/06/20 16:47) Manual Differential (11/06/20 17:08) Rx-Albuterol Nebs (Rx-Proventil Nebs) (11/06/20 17:32) Medications Given in ED Current Medications Medications Dose Ordered Sig/Anatoly Route Start Time Stop Time Status Last Admin Dose Admin Albuterol/ Ipratropium 3 ml ONCE ONCE INH 11/06/20 17:00 11/06/20 17:01 DC 11/06/20 16:58 3 ML Prednisone 40 mg ONCE ONCE PO 11/06/20 17:00 11/06/20 17:01 DC 11/06/20 17:13 40 MG Vital Signs/I&O 11/06/20 11/06/20 16:42 16:58 Temp 36.5 Pulse 92 Resp 20 B/P (MAP) 155/103 (120) Pulse Ox 97 96 O2 Delivery Room Air Room Air Capillary Refill : Departure Impression Primary Impression: COPD exacerbation Disposition: HOME, SELF-CARE Condition: Stable Departure-Patient Inst. Decision time for Depature: 17:34 Referrals: [facility] (PCP) Primary Care Physician ROMERO LOERA APRN (Family) Primary Care Physician Patient Instructions: Exacerbation of COPD Scripts Albuterol Sulfate (Albuterol Sulfate) 2.5 Mg/3 Ml Vial.neb 2.5 MG INH Q4H PRN for WHEEZING, #50 EA 1 Refill Prov: KEIRA PENA APRN 11/06/20 Prednisone (Prednisone) 20 Mg Tab 40 MG PO DAILY, #6 TAB 0 Refills Prov: KEIRA PENA APRN 11/06/20 KEIRA PENA APRN November 06, 2020 16:56
[2020-11-06] MEDS ORDERED: predniSONE 20 MG TAB PO ONE (17:00)
[2020-11-06] MEDS ORDERED: RT-ALBUTEROL/IPRATROPIUM 3 ML (DUONEB) VIAL INH ONE (17:00)
[2020-11-06 17:15] LABS: BASOPHILS # (AUTO) 0.1 10^3/uL (0.0-0.1); BASOPHILS % (AUTO) 2 % (0-10); EOSINOPHILS # (AUTO) 1.1 10^3/uL (0.0-0.3); EOSINOPHILS % (AUTO) 14 % (0-10); HEMATOCRIT 46 % (40-54); HEMOGLOBIN 14.9 g/dL (13.3-17.7); LYMPHOCYTES # (AUTO) 2.3 10^3/uL (1.0-4.0); LYMPHOCYTES % (AUTO) 29 % (12-44); MEAN CORPUSCULAR HEMOGLOBIN 29 pg (25-34); MEAN CORPUSCULAR HGB CONC 33 g/dL (32-36); MEAN CORPUSCULAR VOLUME 91 fL (80-99); MEAN PLATELET VOLUME 9.9 fL (9.0-12.2); MONOCYTES # (AUTO) 0.6 10^3/uL (0.0-1.0); MONOCYTES % (AUTO) 7 % (0-12); NEUTROPHILS # (AUTO) 3.9 10^3/uL (1.8-7.8); NEUTROPHILS % (AUTO) 49 % (42-75); PLATELET COUNT 260 10^3/uL (130-400)
[2020-11-06 17:30] LABS: CHLORIDE 103 MMOL/L (98-107); POTASSIUM 3.9 MMOL/L (3.6-5.0); SODIUM 137 MMOL/L (135-145)
[2020-11-06 17:32] LABS: CALCIUM 9.4 MG/DL (8.5-10.1); GLUCOSE 77 MG/DL (70-105)
[2020-11-06] MEDS ORDERED: RX-ALBUTEROL NEB 2.5 MG/3 ML PACK #5 IH STA (17:32)
--- NOTE | 2020-11-06 17:32 | Diagnostic Imaging Report ---
INDICATION: Cough. Comparison is made to prior examination 06/14/2020. FINDINGS: The heart size, mediastinal configuration, and pulmonary vascularity are within normal limits. There is no pleural effusion, pneumothorax, or pneumonia. The osseous structures are unremarkable. IMPRESSION: No acute cardiopulmonary abnormality. Dictated by: Dictated on workstation # [id number]
[2020-11-06 17:34] LABS: CARBON DIOXIDE 21 MMOL/L (21-32)
[2020-11-06] MEDS ORDERED: PRD20T PO (17:35)
[2020-11-06] MEDS ORDERED: ALBU2.5V4 INH (17:35)
[2020-11-06 17:36] LABS: CREATININE SERUM 0.87 MG/DL (0.60-1.30); GFR ESTIMATED > 60
[2020-11-06 17:37] LABS: BUN/CREATININE RATIO 10
[2020-11-06 17:50] VITALS: BP 138/96
[2020-11-06 18:41] LABS: EOSINOPHILS % (MANUAL) 10 %; LYMPHOCYTES % (MANUAL) 33 %; MONOCYTES % (MANUAL) 5 %; NEUTROPHILS % (MANUAL) 52 %; RBC MORPH NORMAL
== END 2020-11-06 17:50 | disposition home or self-care (01) ==
LOC: EDUNIT# 16:37 → ER 16:38
DX: J44.1 Chronic obstructive pulmonary disease with (acute) exacerbation (principal); I10 Essential (primary) hypertension; E03.9 Hypothyroidism, unspecified; G47.30 Sleep apnea, unspecified; Z99.89 Dependence on other enabling machines and devices; Z79.890 Hormone replacement therapy
CPT/HCPCS: 36415; 71045; 80048; 85007; 85027; 94640

== ENCOUNTER 2021-01-09 21:23 | Emergency (ER) | payer BC ==
[~2021-01-09] VITALS: Ht 175.2 cm; Wt 100.0 kg
[2021-01-09] MEDS ORDERED: LACTATED RINGERS 1,000 ML IV ONE (22:15)
[2021-01-09] MEDS ORDERED: ONDANSETRON 4 MG/2 ML (SDV) Z0FRAN IVP ONE (22:15)
--- NOTE | 2021-01-09 22:28 | ED Cough/URI ---
General Chief Complaint: Cough/Cold/Flu Symptoms Stated Complaint: COVID + Nursing Triage Note: Pt ambulatory into ER Covid+ since 01/04/21 with complaint of Vomiting x10 days. Pt states that he has oral zofran, but he immediately vomits when he tries to eat or drink anything. Pt denies fever, diarrhea, or other issues. Source: patient (SOMEWHAT DIFFICULT HISTORIAN) History of Present Illness Date Seen by Provider: Jan 09, 2021 Time Seen by Provider: 21:40 Initial Comments PT ARRIVES VIA POV FROM HOME STATES HE HAS BEEN SICK SINCE December C/O NAUSEA, VOMITING / DRY HEAVES--STATES "HAVEN'T BEEN ABLE TO KEEP ANYTHING DOWN SINCE THE " NO DIARRHEA NO ABDOMINAL PAIN STATES HE IS VOIDING NORMAL AMOUNT C/O COUGH/CONGESTION C/O SHORTNESS OF BREATH C/O LOSS OF TASTE AND SMELL C/O HEADACHE C/O BODY ACHES C/O SORE THROAT C/O CHEST PAIN NO FEVER/SWEATS/CHILLS NO SWELLING IN LEGS OR FEET STATES HE WENT TO [facility] ON 12/23/20 AND WAS DX WITH "VIRUS" STATES HE WENT TO [facility] TWICE ON 12/30/20 AND WAS DX WITH "VIRUS" STATES HE WENT TO [facility] ON 01/04/21 AND TESTED + FOR COVID-19 PT STATES HE WAS GIVEN A PRESCRIPTION FOR ZOFRAN AT SOME POINT--TOOK A DOSE AT 1400 TODAY PT HAS CONTINUED TO WORK IN BETWEEN THE ABOVE VISITS--WOR[place] [facility] [employer] [facility] PT STATES HE HAS COPD AND USED NEBULIZER AT 1400 WITH IMPROVEMENT SYMPTOMS ARE NO DIFFERENT TONIGHT IN ANY WAY HAS NOT ATTEMPTED TO FOLLOW UP WITH [facility] SINCE THE . PCP: [facility] Allergies and Home Medications Allergies Coded Allergies: No Known Drug Allergies (Unverified , 05/04/11) Home Medications Albuterol Sulfate 2.5 Mg/3 Ml Vial.neb, 2.5 MG IH Q4H PRN for WHEEZING Prescribed by: KEIRA PENA on 07/27/17 1448 Albuterol Sulfate 2.5 Mg/3 Ml Vial.neb, 2.5 MG INH Q4H PRN for WHEEZING Prescribed by: KEIRA PENA on 12/27/18 1736 Albuterol Sulfate 2.5 Mg/3 Ml Vial.neb, 2.5 MG INH Q4H PRN for WHEEZING Prescribed by: KEIRA PENA on 11/06/20 173 Azithromycin 250 Mg Tablet, 250 MG PO UD TAKE 2 TABLETS TODAY, THEN TAKE 1 TABLET DAILY FOR 4 MORE DAYS Prescribed by: KEIRA PENA on 04/02/182240 Cefuroxime Axetil 250 Mg Tablet, 250 MG PO BID Prescribed by: KEIRA PENA on 04/05/192005 Levofloxacin 500 Mg Tablet, 500 MG PO DAILY Prescribed by: MIKE CHIN on 05/13/20 1215 Levothyroxine Sodium 50 Mcg Tablet, 50 MCG PO DAILY, (Reported) Ondansetron 4 Mg Tab.rapdis, 4 MG PO Q6H PRN for NAUSEA/VOMITING Prescribed by: EDWIN PETER on 08/16/18 143 Pramoxine HCl 15 Gm Foam, 1 APPLIC TP QID Prescribed by: EARNESTINE WILKERSON on 06/03/17 2315 Prednisone 20 Mg Tab, 40 MG PO DAILY Prescribed by: KEIRA PENA on 07/27/17 144 Prednisone 5 Mg Tablet, 5 MG PO UD 40 mg daily for 4 days. Prescribed by: KEIRA PENA on 04/02/182240 Prednisone 20 Mg Tab, 40 MG PO DAILY Prescribed by: EDWIN PETER on 07/06/18 022 Prednisone 20 Mg Tab, 40 MG PO DAILY Prescribed by: EDWIN PETER on 08/16/18 143 Prednisone 20 Mg Tab, 40 MG PO DAILY Prescribed by: KEIRA PENA on 12/27/181735 Prednisone 20 Mg Tab, 40 MG PO DAILY Prescribed by: KEIRA PENA on 04/05/192005 Prednisone 20 Mg Tab, 40 MG PO DAILY Prescribed by: KEIRA PENA on 11/06/201734 Review of Systems Review of Systems Constitutional: No chills, No diaphoresis, No dizziness, No fever, No malaise, No weakness EENTM: see HPI, nose congestion, throat pain Respiratory: see HPI, cough, short of breath Cardiovascular: see HPI, chest pain; No edema, No palpitations, No syncope Gastrointestinal: see HPI; No abdominal pain, No diarrhea; nausea, vomiting Genitourinary: no symptoms reported Musculoskeletal: see HPI (BODY ACHES) Skin: no symptoms reported; No rash Psychiatric/Neurological: See HPI, Headache Hematologic/Lymphatic: No Symptoms Reported Immunological/Allergic: no symptoms reported Past Dqztdty-Mwngpr-Dwlayf Hx Patient Social History Tobacco Use?: No Use of E-Cig and/or Vaping dev: No Substance use?: No Alcohol Use?: No Pt feels they are or have been: No Immunizations Up To Date Tetanus Booster (TDap): Less than 5yrs PED Vaccines UTD: Yes Influenza Vaccine Up-to-Date: No; Not Current Seasonal Allergies Seasonal Allergies: No Past Medical History Surgeries: Yes (HEART CATH 2011) Cardiac Respiratory: Yes Sleep Apnea, COPD Currently Using CPAP: Yes Currently Using BIPAP: No Cardiac: Yes Hypertension Neurological: No Reproductive Disorders: No Genitourinary: No Gastrointestinal: No Musculoskeletal: No Endocrine: Yes Hypothyroidsim HEENT: No Cancer: No Psychosocial: Yes Anxiety Integumentary: No Blood Disorders: No Family Medical History No Pertinent Family Hx Physical Exam Vital Signs - First Documented Capillary Refill : Less Than 3 Seconds Height: 5'9.00" Weight: 210lbs. 0oz. 95.727888yh; 32.00 BMI Method:Stated General Appearance: WD/WN, no apparent distress, other (DOES NOT APPEAR ILL OR TO BE IN ANY DISCOMFORT OR DISTRESS) HEENT: PERRL/EOMI, normal ENT inspection, TMs normal, pharynx normal, other (POOR DENTITION) Neck: normal inspection Respiratory: normal breath sounds, no respiratory distress, no accessory muscle use Cardiovascular: regular rate, rhythm, no edema, no JVD, no murmur Gastrointestinal: non tender, soft Extremities: normal range of motion, non-tender, normal inspection, no pedal edema, no calf tenderness, normal capillary refill Neurologic/Psychiatric: iso coordinator II-XII nml as tested, no motor/sensory deficits, alert, normal mood/affect, oriented x 3 Skin: normal color, warm/dry Focused Exam Lactate Level 01/09/21 21:46: Lactic Acid Level 1.24 Lactic Acid Level Laboratory Tests Test 01/09/21 21:46 Lactic Acid Level 1.24 MMOL/L (0.50-2.00) Progress/Results/Core Measures Suspected Sepsis SIRS Temperature: Pulse: 93 Respiratory Rate: 20 Laboratory Tests 01/09/21 23:08: White Blood Count 6.2 Blood Pressure 125 /103 Mean: 110 01/09/21 21:46: Lactic Acid Level 1.24 Laboratory Tests 01/09/21 21:46: Creatinine 1.08, Total Bilirubin 1.1H 01/09/21 23:08: Platelet Count 321 Results/Orders Lab Results Laboratory Tests Test 01/09/21 21:46 01/09/21 23:08 Range/Units Urine Color RED H Urine Clarity CLEAR Urine pH 5.5 5-9 Urine Specific [place] 1.025 H 1.016-1.022 Urine Protein 1+ H NEGATIVE Urine Glucose (UA) TRACE H NEGATIVE Urine Ketones 2+ H NEGATIVE Urine Nitrite NEGATIVE NEGATIVE Urine Bilirubin NEGATIVE NEGATIVE Urine Urobilinogen 4.0 < = 1.0 MG/DL Urine Leukocyte Esterase NEGATIVE NEGATIVE Urine RBC (Auto) NEGATIVE NEGATIVE Urine RBC NONE /HPF Urine WBC 5-10 H /HPF Urine Squamous Epithelial Cells RARE /HPF Urine Crystals NONE /LPF Urine Bacteria FEW H /HPF Urine Casts NONE /LPF Urine Mucus LARGE H /LPF Urine Culture Indicated YES Sodium Level 139 135-145 MMOL/L Potassium Level 4.0 3.6-5.0 MMOL/L Chloride Level 101 98-107 MMOL/L Carbon Dioxide Level 22 21-32 MMOL/L Anion Gap 16 H 5-14 MMOL/L Blood Urea Nitrogen 12 7-18 MG/DL Creatinine 1.08 0.60-1.30 MG/DL Estimat Glomerular Filtration Rate 76 BUN/Creatinine Ratio 11 Glucose Level 85 70-105 MG/DL Lactic Acid Level 1.24 0.50-2.00 MMOL/L Calcium Level 9.9 8.5-10.1 MG/DL Corrected Calcium 9.7 8.5-10.1 MG/DL Magnesium Level 2.0 1.6-2.4 MG/DL Total Bilirubin 1.1 H 0.1-1.0 MG/DL Aspartate Amino Transf (AST/SGOT) 29 5-34 U/L Alanine Aminotransferase (ALT/SGPT) 32 0-55 U/L Alkaline Phosphatase 111 40-136 U/L Total Creatine Kinase 76 30-200 U/L Creatine Kinase MB 0.8 <6.6 NG/ML Troponin I < 0.028 <0.028 NG/ML C-Reactive Protein High Sensitivity 0.81 H 0.00-0.50 MG/DL Total Protein 8.5 H 6.4-8.2 GM/DL Albumin 4.3 3.2-4.5 GM/DL White Blood Count 6.2 4.3-11.0 10^3/uL Red Blood Count 4.99 4.30-5.52 10^6/uL Hemoglobin 14.8 13.3-17.7 g/dL Hematocrit 45 40-54 % Mean Corpuscular Volume 90 80-99 fL Mean Corpuscular Hemoglobin 30 25-34 pg Mean Corpuscular Hemoglobin Concent 33 32-36 g/dL Red Cell Distribution Width 12.4 10.0-14.5 % Platelet Count 321 130-400 10^3/uL Mean Platelet Volume 10.3 9.0-12.2 fL Immature Granulocyte % (Auto) 0 % Neutrophils (%) (Auto) 61 42-75 % Lymphocytes (%) (Auto) 23 12-44 % Monocytes (%) (Auto) 8 0-12 % Eosinophils (%) (Auto) 6 0-10 % Basophils (%) (Auto) 1 0-10 % Neutrophils # (Auto) 3.8 1.8-7.8 10^3/uL Lymphocytes # (Auto) 1.4 1.0-4.0 10^3/uL Monocytes # (Auto) 0.5 0.0-1.0 10^3/uL Eosinophils # (Auto) 0.4 H 0.0-0.3 10^3/uL Basophils # (Auto) 0.1 0.0-0.1 10^3/uL Immature Granulocyte # (Auto) 0.0 0.0-0.1 10^3/uL My Orders Orders - NÉSTOR ESPINOZA DO Ed Iv/Invasive Line Start (01/09/21 21:46) Ekg Tracing (01/09/21 21:46) O2 (01/09/21 21:46) Monitor-Rhythm Ecg Trace Only (01/09/21 21:46) BNP (01/09/21 21:46) Cbc With Automated Diff (01/09/21 21:46) Comprehensive Metabolic Panel (01/09/21 21:46) Creatine Kinase (01/09/21 21:46) Creatine Kinase Mb (01/09/21 21:46) Hs C Reactive Protein (01/09/21 21:46) Fibrin Degradation Products (01/09/21 21:46) Lactic Acid Analyzer (01/09/21 21:46) Magnesium (01/09/21 21:46) Procalcitonin (Pct) (01/09/21 21:46) Protime With Inr (01/09/21 21:46) Partial Thromboplastin Time (01/09/21 21:46) Ua Culture If Indicated (01/09/21 21:46) Blood Culture (01/09/21 21:46) Erythrocyte Sedimentation Rate (01/09/21 21:46) Troponin I (01/09/21 21:46) Chest 1 View, Ap/Pa Only (01/09/21 21:46) Ed Iv/Invasive Line Start (01/09/21 22:15) Lactated Ringers (Lr 1000 Ml Iv Solution (01/09/21 22:15) Ondansetron Injection (Zofran Injectio (01/09/21 22:15) Urine Culture (01/09/21 21:46) Medications Given in ED Current Medications Medications Dose Ordered Sig/Anatoly Route Start Time Stop Time Status Last Admin Dose Admin Lactated Ringer's 1,000 ml @ 0 mls/hr Q0M ONCE IV 01/09/21 22:15 01/09/21 22:17 DC 01/09/21 22:33 1,000 MLS/HR Ondansetron HCl 4 mg ONCE ONCE IVP 01/09/21 22:15 01/09/21 22:17 DC 01/09/21 22:33 4 MG Vital Signs/I&O 01/09/21 01/09/21 22:09 22:09 Temp 36.5 Pulse 93 Resp 20 B/P (MAP) 125/103 (110) Pulse Ox 96 O2 Delivery Room Air Room Air Capillary Refill : Less Than 3 Seconds Blood Pressure Mean: 110 Progress Note : Progress Note PLACED IN ISOLATION ROOM PPE WORN AT ALL TIMES COVID-19 TESTING PERFORMED NO VOMITING NO FEVER NO HYPOXIA NO COUGH NO DYSPNEA Departure Impression Primary Impression: COVID-19 virus infection Additional Impressions: Nausea & vomiting UTI (urinary tract infection) Disposition: 01 HOME, SELF-CARE Condition: Stable Departure-Patient Inst. Referrals: [facility] (PCP) Primary Care Physician ROMERO LOERA APRN (Family) Primary Care Physician Patient Instructions: COVID-19 (DC), Nausea and Vomiting, Adult, Preventing the Spread of an Infectious Disease, Urinary Tract Infection, Adult (DC) Add. Discharge Instructions: HOME, REST LOTS OF CLEAR LIQUIDS--WATER, BROTH, JELLO, GATORADE BRATS DIET--BANANAS, RICE, APPLESAUCE, TOAST,SALTINES FOLLOW UP WITH [facility] THIS WEEK FOR FURTHER CARE--CALL IN THE MORNING TO SCHEDULE APPOINTMENT CONTINUE QUARANTINE UNTIL YOU ARE CLEARED BY DR. All discharge instructions reviewed with patient and/or family. Voiced understanding. Scripts Ondansetron (Ondansetron Odt) 8 Mg Tab.rapdis 8 MG PO Q4H PRN for NAUSEA/VOMITING, #10 TAB Prov: NÉSTOR ESPINOZA DO 01/09/21 Cefdinir (Cefdinir) 300 Mg Capsule 300 MG PO BID, #20 CAP Prov: NÉSTOR ESPINOZA DO 01/09/21 NÉSTOR ESPINOZA DO Jan 09, 2021 22:28
[2021-01-09 22:33] LABS: CLARITY,URINE CLEAR; COLOR,URINE RED; GLUCOSE, URINE (UA) TRACE (NEGATIVE); KETONES,URINE 2+ (NEGATIVE); LEUKOCYTE ESTERASE ,URINE NEGATIVE (NEGATIVE); NITRITE,URINE NEGATIVE (NEGATIVE); PH,URINE 5.5 (5-9); PROTEIN,URINE 1+ (NEGATIVE)
[2021-01-09 22:34] LABS: ALBUMIN 4.3 GM/DL (3.2-4.5); CHLORIDE 101 MMOL/L (98-107); SODIUM 139 MMOL/L (135-145)
[2021-01-09 22:35] LABS: CALCIUM 9.9 MG/DL (8.5-10.1)
[2021-01-09 22:36] LABS: GLUCOSE 85 MG/DL (70-105)
[2021-01-09 22:37] LABS: TOTAL PROTEIN 8.5 GM/DL (6.4-8.2)
[2021-01-09 22:38] LABS: BILIRUBIN,TOTAL 1.1 MG/DL (0.1-1.0); CARBON DIOXIDE 22 MMOL/L (21-32)
[2021-01-09 22:39] LABS: BACTERIA,URINE FEW /HPF; SQUAMOUS EPITHELIAL CELL,UR RARE /HPF
[2021-01-09 22:40] LABS: ALKALINE PHOSPHATASE 111 U/L (40-136); CREATININE SERUM 1.08 MG/DL (0.60-1.30); GFR ESTIMATED 76
[2021-01-09 22:41] LABS: BUN/CREATININE RATIO 11
[2021-01-09 22:43] LABS: ALANINE AMINOTRANSFERASE 32 U/L (0-55)
[2021-01-09 22:44] LABS: CREATINE KINASE 76 U/L (30-200)
[2021-01-09 23:03] LABS: BILIRUBIN,URINE NEGATIVE (NEGATIVE)
--- NOTE | 2021-01-09 23:18 | Diagnostic Imaging Report ---
EXAMINATION: Chest radiograph, portable AP view. DATE: 01/09/2021 10:51 PM INDICATION: 40-year-old male, Covid positive. Shortness of breath, dyspnea. COMPARISON: November 06, 2020. FINDINGS: Heart size and mediastinal contours are unchanged. There is no identified pneumothorax. There is no large pleural effusion. There is no identified focal airspace consolidation. IMPRESSION: No identified acute cardiopulmonary abnormality. Dictated by: Dictated on workstation # [id number]
[2021-01-09 23:25] LABS: BASOPHILS # (AUTO) 0.1 10^3/uL (0.0-0.1); BASOPHILS % (AUTO) 1 % (0-10); EOSINOPHILS # (AUTO) 0.4 10^3/uL (0.0-0.3); EOSINOPHILS % (AUTO) 6 % (0-10); HEMATOCRIT 45 % (40-54); HEMOGLOBIN 14.8 g/dL (13.3-17.7); LYMPHOCYTES # (AUTO) 1.4 10^3/uL (1.0-4.0); LYMPHOCYTES % (AUTO) 23 % (12-44); MEAN CORPUSCULAR HEMOGLOBIN 30 pg (25-34); MEAN CORPUSCULAR HGB CONC 33 g/dL (32-36); MEAN CORPUSCULAR VOLUME 90 fL (80-99); MEAN PLATELET VOLUME 10.3 fL (9.0-12.2); MONOCYTES # (AUTO) 0.5 10^3/uL (0.0-1.0); MONOCYTES % (AUTO) 8 % (0-12); NEUTROPHILS # (AUTO) 3.8 10^3/uL (1.8-7.8); NEUTROPHILS % (AUTO) 61 % (42-75); PLATELET COUNT 321 10^3/uL (130-400); WHITE BLOOD COUNT 6.2 10^3/uL (4.3-11.0)
[2021-01-09 23:40] LABS: CREATINE KINASE MB 0.8 NG/ML (<6.6)
[2021-01-09] MEDS ORDERED: CEFD300C3 PO (23:41)
[2021-01-09] MEDS ORDERED: ONDA8TAB13 PO (23:41)
[2021-01-10 00:45] LABS: FIBRIN DEGRADATION PRODUCTS 0.78 UG/ML (0.00-0.49); PROTHROMBIN TIME PATIENT 13.6 SEC (12.2-14.7)
[2021-01-10 00:52] VITALS: BP 110/85
--- OUTSIDE RECORDS SUMMARY | 2021-01-13 01:42 | XMS REPORT ---
Author Author [facility] Address Unknown Phone Unavailable Care Team Providers Care Loader Demolder Name Role Phone Migration, Doctor Unavailable Unavailable PROBLEMS Type Condition ICD9-CM Code [id number] Code Onset Dates Condition S tatus W/U Status Risk SNOMED Code Notes Problem Lumbago with sciatica, left side M54.42 Active confirmed 739514539 Problem Obesity (BMI 30.0-34.9) E66.9 Active confirmed [id number] Problem Severe persistent asthma with exacerbation J45.51 Active confirmed 014542492 Problem Hypothyroidism, unspecified type E03.9 Active conf irmed 50883785 Problem Severe persistent asthma without complication J45. 50 Active confirmed 573409104 Problem Seasonal allergic rhinitis due to pollen J30.1 Active confirmed 57182357 Problem COPD exacerbation J44.1 Active confirmed 19 6692781 Problem Essential hypertension I10 Active confirmed 90761061 Problem Hypothyroidism (acquired) E03.9 Active confirmed 06628516 Problem Moderate persistent asthma without complication J4 5.40 Active confirmed 697159122 Problem COPD, severe J44.9 Active confirmed 6229128 06 Problem Moderate persistent asthma with acute exacerbation J45.41 Active confirmed [id number] ALLERGIES No Known Allergies ENCOUNTERS from 1980 to 2020-11-18 Encounter Location Date Provider Diagnosis [facility] [address] [facility] [id number] [place] [address] 04 Feb, 2012 Doctor Migration IMMUNIZATIONS Vaccine Route Administration Date Status PRIVATE FLULAVAL QUAD 0.5ML (6 MO AND UP) 2019 IM Intramuscular Apr 22, 2020 Administered SOLUMEDROL (UP TO 125 MG) IM Intramuscular October 01, 2020 Admin istered SOLUMEDROL (UP TO 125 MG) IM Intramuscular September 18, 2020 Admin istered DEPO MEDROL 80 MG/ML IM Intramuscular May 18, 2017 Administer ed PRIVATE PPSV23 (PNEUMOVAX) IM Intramuscular Apr 22, 2020 Admi nistered SOCIAL HISTORY Sex Assigned At : Social History Observation Description Sex Assigned At Unknown Alcohol Screen (Audit-C) Question Answer Notes Did you have a drink containing alcohol in the past year? Ye s Points 7 Interpretation Positive How often did you have 6 or more drinks on one occasio n in the past year? Monthly (2 points) How many drinks did you have on a typica l day when you were drinking in the past year? 10 or more (4 points) How often did you have a drink containing alcohol in t he past year? Monthly or less (1 point) Sexual History Question Answer Notes Had sex in the past 12 months (vaginal, oral, or anal)? No Have you ever had a Sexually transmitted disease? No PHQ2 Question Answer Notes In the last 2 weeks, how often have you had little interest or pleasure in doing things? Not at all In the last 2 weeks, how often have you been feeling down, depressed, or hopeless? Not at all Total PHQ2 Score 0 Tobacco use other than smoking: Question Answer Notes Are you an other tobacco user? none REASON FOR REFERRAL No Information VITAL SIGNS No information MEDICATIONS Medication SIG (Take, Route, Frequency, Duration) Notes Start Da te End Date Status Fluticasone Propionate 50 MCG/ACT 1 spray in each nost ril Nasally Twice a day for 30 day(s) Dec, Active predniSONE 50 MG 1 tablet Orally Once a day for 4 day(s) 2 3 Sep, 2020 Active Fluticasone-Salmeterol 500-50 MCG/DOSE 1 puff Inhalati on Twice a day for 30 days Active Montelukast Sodium 10 mg 1 tablet Orally Once a day for 30 day(s ) singulair Apr, Active Nebulizer - as directed inhalation every 6 hours as needed Aug, Active Albuterol Sulfate (2.5 MG/3ML) 0.083% 3 ml as needed I nhalation every 6 hrs for 25 Active ProAir HFA 108 (90 Base) mcg/act 2 puffs as needed Inh alation every 6 hrs for 30 days Active Levothyroxine Sodium 125 MCG 1 tablet in the morning o n an empty stomach Orally Once a day for 30 day(s) recheck labs in 6 weeks Active PROCEDURES No Information RESULTS No Results REASON FOR VISIT [facility] [place] MEDICAL (GENERAL) HISTORY Type Description Date Medical History asthma Medical History hypothyroid Medical History Gerd Medical History COPD, severe Medical History GERARDO, uses CPAP Medical History Subclinical hypothyroidism Medical History Subclinical hypothyroidism Medical History Severe persistent asthma, unspecified wh ether complicated Medical History heart problems Surgical History heart cath no interventions 2011 Hospitalization History asthma, shortness of breath x4 Hospitalization History chest pain Hospitalization History [facility] 2018 Hospitalization History [facility] - [facility] 2019 Hospitalization History [facility] 2020 Goals Section No Information Health Concerns No Information MEDICAL EQUIPMENT No Information MENTAL STATUS No Information FUNCTIONAL STATUS No Information ASSESSMENTS No Information PLAN OF TREATMENT Medication Medication Name Sig Start Date Stop Date Fluticasone-Salmeterol 500-50 MCG/DOSE 1 puff Inhalati on Twice a day for 30 days Albuterol Sulfate (2.5 MG/3ML) 0.083% 3 ml as needed I nhalation every 6 hrs for 25 predniSONE 50 MG 1 tablet Orally Once a day for 4 day(s) Sep, Insurance Providers Payer Name Payer Address Payer Phone Insured Name Patient Relati onship to Insured Coverage Start Date Coverage End Date [employer] [place] [address] [facility] [id number] [address] Rubalcava
--- OUTSIDE RECORDS SUMMARY | 2021-01-13 01:42 | XMS REPORT | Clinical Summary ---
Author Author [facility] Organization [facility] Address Unknown Phone Unavailable Care Team Providers Care Allied Health Professional Name Role Phone PCP Unavailable Allergies No Known Active Allergies Medications End Date Status Medication Sig Dispensed Refills Start Date Active fluticasone Inhale daily. 0 propion/salmeterol (ADVAIR DISKUS INHL) Active levothyroxine (SYNTHROID, Take 75 mcg 0 LEVOTHROID) 75 MCG tablet by mouth daily. Active montelukast (SINGULAIR) Take 10 mg by 0 10 mg tablet mouth nightly. Active albuterol (PROAIR HFA) 90 Inhale 2 0 mcg/actuation HFA inhaler puffs every 6 (six) hours as needed for wheezing. Active Problems Problem Noted Date Pulmonary nodules 01/16/2020 Ground glass opacity present on imaging of lung 12/2019 Bronchitis 01/16/2020 COPD (chronic obstructive pulmonary disease) 020 Last Assessment & Plan: Formatting of this note might be differ ent from the original. Not acute exacerbation -cont home medications Hypothyroidism 01/15/2020 Last Assessment & Plan: Formatting of this note might be differ ent from the original. -thyroid cascade -cont supplement Resolved Problems Problem Noted Date Resolved Date Chest pain 01/15/2020 01/16/2020 Last Assessment & Plan: Formatting of this note might be differ ent from the original. Transfer OSH. EKG and CXR reported as n ormal but no paperwork. Chest pain improved with nitro -Stat EKG -stat trop and trend -a1c, lipid panel -ddimer, lipase ordered -cardiology consult -request records -daily asa Family History Medical History Relation Name Comments COPD Father Heart disease Father Relation Name Status Comments Father Alive Mother Alive Social History Date Tobacco Use Types Packs/Day Years Used Never Smoker Smokeless Tobacco: Never Used Comments Alcohol Use Standard Drinks/Week Yes 0 (1 standard drink = 0.6 o z pure alcohol) Sex Assigned at Date Recorded Not on file Last Filed Vital Signs Reading Time Taken Comments Vital Sign 122/79 01/16/2020 3:22 PM CDT Blood Pressure 79 01/16/2020 3:22 PM CDT Pulse 36.7 C (98 F) 01/16/2020 3:22 PM CDT Temperature 19 01/16/2020 3:22 PM CDT Respiratory Rate 100% 01/16/2020 3:22 PM CDT Oxygen Saturation - - Inhaled Oxygen Concentration 96.7 kg (213 lb 3 oz) 01/15/2020 12:54 AM CDT Weight 175.3 cm (5' 9") 01/15/2020 12:54 AM CDT Height 31.48 01/15/2020 12:54 AM CDT Body Mass Index Plan of Treatment Health Maintenance Due Date Last Done Comments Spirometry # 1980 Td/Tdap# 1980 COVID-19 Vaccine (1) 1992 Influenza Vaccine (#1) 2021 09/25/2015 Pneumococcal Vaccine: 02/10/2045 01/04/2015 Pediatrics (0 to 5 Years) and At-Risk Patients (6 to 64 Years) (2 of 2 - PPSV23) Results Not on filefrom Last 3 Months Insurance Type Payer Benefit Subscriber ID Effective Phone Address Plan / Dates Group [facility] [id number] 19 20- [facility]REFERRED [facility] BLUE Advance Directives For more information, please contact: [phone] Patient Local Sales Associate Explanation Type Date Recorded Health Care Directive Date Inactivated Comments Code Status Date Activated 01/16/2020 8:49 PM Full Code 01/15/2020 12:53 AM
== END 2021-01-10 00:50 | disposition home or self-care (01) ==
LOC: EDUNIT# 21:23 → ER 21:26
DX: U07.1 COVID-19 (principal); R11.2 Nausea with vomiting, unspecified; N39.0 Urinary tract infection, site not specified; G47.30 Sleep apnea, unspecified; J44.9 Chronic obstructive pulmonary disease, unspecified; I10 Essential (primary) hypertension; E03.9 Hypothyroidism, unspecified; Z79.890 Hormone replacement therapy; Z79.52 Long term (current) use of systemic steroids
CPT/HCPCS: 36415; 71045; 80053; 81000; 82550; 82553; 83605; 83735; 83880; 84145; 84484; 85025; 85379; 85610; 85652; 85730; 86141; 87040; 87088; 93005; 93041

== ENCOUNTER 2021-01-20 18:05 | Emergency (ER) | payer BC ==
[~2021-01-20] VITALS: Ht 175 cm; Wt 99.0 kg
[~2021-01-20 18:05] MED LIST changes: -RT-ALBUTEROL SULF 2.5 MG/3 ML PRE-MIX VIAL INH ONE
[2021-01-20] MEDS ORDERED: ASPIRIN 81 MG CHEW (CHILDREN'S ASA) PO ONE (18:45)
[2021-01-20] MEDS ORDERED: RT-ALBUTEROL/IPRATROPIUM 3 ML (DUONEB) VIAL INH ONE (18:45)
--- NOTE | 2021-01-20 18:45 | ED Chest Pain ---
General Chief Complaint: Chest Pain Stated Complaint: CHEST PAIN Source: patient Exam Limitations: no limitations History of Present Illness Date Seen by Provider: Jan 20, 2021 Time Seen by Provider: 18:44 Initial Comments to ER with sharp type chest pain off and on today rated at 9 out of 10 worsened by deep breathing movement and exertion. Had a heart cath in 2012 that was normal he states. No history of coronary stenting. He does have an extensive lung history. He has been very wheezy lately. Covid positive on 01/09/21 Timing/Duration: 24 hours Severity/Quality: moderate Location: central Radiation: no radiation, jaw Activities at Onset: none Prior CP/Workup: no prior chest pain Allergies and Home Medications Allergies Coded Allergies: No Known Drug Allergies (Unverified , 05/04/11) Home Medications Albuterol Sulfate 2.5 Mg/3 Ml Vial.neb, 2.5 MG IH Q4H PRN for WHEEZING Prescribed by: KEIRA PENA on 07/27/17 1448 Albuterol Sulfate 2.5 Mg/3 Ml Vial.neb, 2.5 MG INH Q4H PRN for WHEEZING Prescribed by: KEIRA PENA on 12/27/18 1736 Albuterol Sulfate 2.5 Mg/3 Ml Vial.neb, 2.5 MG INH Q4H PRN for WHEEZING Prescribed by: KEIRA PENA on 11/06/20 1735 Azithromycin 250 Mg Tablet, 250 MG PO UD TAKE 2 TABLETS TODAY, THEN TAKE 1 TABLET DAILY FOR 4 MORE DAYS Prescribed by: KEIRA PENA on 04/02/18 2241 Cefdinir 300 Mg Capsule, 300 MG PO BID Prescribed by: NÉSTOR ESPINOZA on 01/09/21 2341 Cefuroxime Axetil 250 Mg Tablet, 250 MG PO BID Prescribed by: KEIRA PENA on 04/05/192005 Levofloxacin 500 Mg Tablet, 500 MG PO DAILY Prescribed by: MIKE CHIN on 05/13/20 1215 Levofloxacin 500 Mg Tablet, 500 MG PO DAILY Prescribed by: KEIRA PENA on 01/20/218 Levothyroxine Sodium 50 Mcg Tablet, 50 MCG PO DAILY, (Reported) Ondansetron 4 Mg Tab.rapdis, 4 MG PO Q6H PRN for NAUSEA/VOMITING Prescribed by: EDWIN PETER on 08/16/18 1435 Ondansetron 8 Mg Tab.rapdis, 8 MG PO Q4H PRN for NAUSEA/VOMITING Prescribed by: NÉSTOR ESPINZOA on 01/09/21 2341 Pramoxine HCl 15 Gm Foam, 1 APPLIC TP QID Prescribed by: EARNESTINE WILKERSON on 06/03/17 2315 Prednisone 20 Mg Tab, 40 MG PO DAILY Prescribed by: KEIRA PENA on 07/27/17 1448 Prednisone 5 Mg Tablet, 5 MG PO UD 40 mg daily for 4 days. Prescribed by: KEIRA PENA on 04/02/18 2241 Prednisone 20 Mg Tab, 40 MG PO DAILY Prescribed by: EDWIN PETER on 07/06/18 0225 Prednisone 20 Mg Tab, 40 MG PO DAILY Prescribed by: EDWIN PETER on 08/16/18 1435 Prednisone 20 Mg Tab, 40 MG PO DAILY Prescribed by: KEIRA PENA on 12/27/18 173 Prednisone 20 Mg Tab, 40 MG PO DAILY Prescribed by: KEIRA PENA on 04/05/192005 Prednisone 20 Mg Tab, 40 MG PO DAILY Prescribed by: KEIRA PENA on 11/06/20 173 Prednisone 20 Mg Tab, 40 MG PO DAILY Prescribed by: KEIRA PENA on 01/20/218 Patient Home Medication List Home Medication List Reviewed: Yes Review of Systems Review of Systems Constitutional: see HPI, chills EENTM: No Symptoms Reported Respiratory: See HPI, Cough Cardiovascular: No Symptoms Reported Genitourinary: No Symptoms Reported Musculoskeletal: no symptoms reported Skin: no symptoms reported Psychiatric/Neurological: No Symptoms Reported Endocrine: No Symptoms Reported Hematologic/Lymphatic: No Symptoms Reported Past Slfijen-Vcrkcf-Wbcthp Hx Immunizations Up To Date Tetanus Booster (TDap): Less than 5yrs PED Vaccines UTD: Yes Seasonal Allergies Seasonal Allergies: No Past Medical History Surgeries: Yes (HEART CATH 2011) Cardiac Respiratory: Yes Sleep Apnea, COPD Currently Using CPAP: Yes Currently Using BIPAP: No Cardiac: Yes Hypertension Neurological: No Reproductive Disorders: No Genitourinary: No Gastrointestinal: No Musculoskeletal: No Endocrine: Yes Hypothyroidsim HEENT: No Cancer: No Psychosocial: Yes Anxiety Integumentary: No Blood Disorders: No Family Medical History No Pertinent Family Hx Physical Exam Vital Signs Vital Signs - First Documented Capillary Refill : Height, Weight, BMI Height: 5'9.00" Weight: 210lbs. 0oz. 95.406502gt; 32.00 BMI Method:Stated General Appearance: No Apparent Distress, WD/WN HEENT: PERRL/EOMI, TMs Normal Respiratory: No Accessory Muscle Use, No Respiratory Distress, Wheezing Cardiovascular: Regular Rate, Rhythm, Normal Peripheral Pulses Gastrointestinal: Normal Bowel Sounds, Non Tender, Soft Extremity: Normal Capillary Refill, Normal Inspection Neurologic/Psychiatric: Alert, Oriented x3 Skin: Normal Color, Warm/Dry Progress/Results/Core Measures Results/Orders Lab Results Laboratory Tests Test 01/20/21 18:25 Range/Units White Blood Count 9.3 4.3-11.0 10^3/uL Red Blood Count 4.91 4.30-5.52 10^6/uL Hemoglobin 14.6 13.3-17.7 g/dL Hematocrit 45 40-54 % Mean Corpuscular Volume 91 80-99 fL Mean Corpuscular Hemoglobin 30 25-34 pg Mean Corpuscular Hemoglobin Concent 33 32-36 g/dL Red Cell Distribution Width 12.5 10.0-14.5 % Platelet Count 251 130-400 10^3/uL Mean Platelet Volume 10.2 9.0-12.2 fL Immature Granulocyte % (Auto) 0 % Neutrophils (%) (Auto) 67 42-75 % Lymphocytes (%) (Auto) 19 12-44 % Monocytes (%) (Auto) 7 0-12 % Eosinophils (%) (Auto) 6 0-10 % Basophils (%) (Auto) 1 0-10 % Neutrophils # (Auto) 6.3 1.8-7.8 10^3/uL Lymphocytes # (Auto) 1.7 1.0-4.0 10^3/uL Monocytes # (Auto) 0.7 0.0-1.0 10^3/uL Eosinophils # (Auto) 0.6 H 0.0-0.3 10^3/uL Basophils # (Auto) 0.1 0.0-0.1 10^3/uL Immature Granulocyte # (Auto) 0.0 0.0-0.1 10^3/uL Prothrombin Time 12.9 12.2-14.7 SEC INR Comment 0.9 0.8-1.4 Activated Partial Thromboplast Time 30 24-35 SEC D-Dimer 0.51 H 0.00-0.49 UG/ML Sodium Level 139 135-145 MMOL/L Potassium Level 4.0 3.6-5.0 MMOL/L Chloride Level 102 98-107 MMOL/L Carbon Dioxide Level 24 21-32 MMOL/L Anion Gap 13 5-14 MMOL/L Blood Urea Nitrogen 7 7-18 MG/DL Creatinine 0.95 0.60-1.30 MG/DL Estimat Glomerular Filtration Rate 88 BUN/Creatinine Ratio 7 Glucose Level 89 70-105 MG/DL Calcium Level 9.4 8.5-10.1 MG/DL Corrected Calcium 9.2 8.5-10.1 MG/DL Magnesium Level 1.9 1.6-2.4 MG/DL Total Bilirubin 0.5 0.1-1.0 MG/DL Aspartate Amino Transf (AST/SGOT) 27 5-34 U/L Alanine Aminotransferase (ALT/SGPT) 41 0-55 U/L Alkaline Phosphatase 106 40-136 U/L Myoglobin 26.0 10.0-92.0 NG/ML Troponin I < 0.028 <0.028 NG/ML B-Type Natriuretic Peptide < 10.0 <100.0 PG/ML Total Protein 7.9 6.4-8.2 GM/DL Albumin 4.2 3.2-4.5 GM/DL My Orders Orders - KEIRA PENA RADIO ANNOUNCER Cbc With Automated Diff (01/20/21 18:20) Magnesium (01/20/21 18:20) Chest 1 View, Ap/Pa Only (01/20/21 18:20) Ekg Tracing (01/20/21 18:20) Comprehensive Metabolic Panel (01/20/21 18:20) Myoglobin Serum (01/20/21 18:20) Protime With Inr (01/20/21 18:20) Partial Thromboplastin Time (01/20/21 18:20) O2 (01/20/21 18:20) Monitor-Rhythm Ecg Trace Only (01/20/21 18:20) Lipid Panel (01/21/21 06:00) Ed Iv/Invasive Line Start (01/20/21 18:20) BNP (01/20/21 18:20) Covid 19 Inhouse Test (01/20/21 18:21) Influenza A And B By Pcr (01/20/21 18:21) Albuterol/Ipra Inhalation Soln (Duoneb I (01/20/21 18:45) Svn Small Volume Nebulizer (01/20/21 18:43) Aspirin Chewable Tablet (Baby Aspirin Ch (01/20/21 18:45) Fibrin Degradation Products (01/20/21 18:45) Ketorolac Injection (Toradol Injection) (01/20/21 19:00) Troponin I (01/20/21 18:25) Ct Angio Chest W (01/20/21 19:35) Iohexol Injection (Omnipaque 350 Mg/Ml 1 (01/20/21 20:15) Received Contrast (Hold Metformin- Contr (01/20/21 20:15) Ns (Ivpb) (Sodium Chloride 0.9% Ivpb Bag (01/20/21 20:15) Ceftriaxone (Rocephin) (01/20/21 21:30) Methylprednisolone Sod Succ (Solu-Medrol (01/20/21 21:30) Medications Given in ED Current Medications Medications Dose Ordered Sig/Anatoly Route Start Time Stop Time Status Last Admin Dose Admin Albuterol/ Ipratropium 3 ml ONCE ONCE INH 01/20/21 18:45 01/20/21 18:46 DC 01/20/21 18:59 3 ML Aspirin 324 mg ONCE ONCE PO 01/20/21 18:45 01/20/21 18:46 DC 01/20/21 18:57 324 MG Iohexol 100 ml ONCE ONCE IV 01/20/21 20:15 01/20/21 20:16 DC 01/20/21 21:03 81 ML Ketorolac Tromethamine 15 mg ONCE ONCE IVP 01/20/21 19:00 01/20/21 19:01 DC 01/20/21 18:57 15 MG Sodium Chloride 100 ml ONCE ONCE IV 01/20/21 20:15 01/20/21 20:16 DC 01/20/21 21:03 80 ML Vital Signs/I&O 01/20/21 01/20/21 18:05 18:05 Temp 36.2 Pulse 98 Resp 18 B/P (MAP) 129/59 (82) O2 Delivery Room Air Room Air Progress Progress Note : Progress Note NAME: EARNESTINE ALMAGUER MED REC#: [id number] PT STATUS: REG ER : 1980 PHYSICIAN: KEIRA PENA APRN ADMIT DATE: 01/20/21/ER Draft Date of Exam:01/20/21 CHEST 1 VIEW, AP/PA ONLY INDICATION: Chest pain. COMPARISON: 01/09/2021. FINDINGS: The lungs are clear. The heart size within normal limits. There is no failure, effusion or pneumothorax. No free air beneath the diaphragms. IMPRESSION: No acute appearing abnormality. Dictated on workstation # [id number] Dict: 01/20/211955 Trans: 01/20/212001 PJLuis [id number] Interpreted by: SOBIA LORA Electronically signed by: Departure Communication (Admissions) Family Conversation 2131-oxygen saturation 98% on room air. Less wheezing and better air movement after DuoNeb treatment he confirms that he has plenty of albuterol for his nebulizer at home. I will put him on some steroids and Levaquin given the right sided infiltrate on chest x-ray though this is likely related to the recent Covid diagnosis. NAME: EARNESTINE ALMAGUER [facility] REC#: [id number] PT STATUS: REG ER : 1980 PHYSICIAN: KEIRA PENA APRN ADMIT DATE: 01/20/21/ER Draft Date of Exam:01/20/21 CHEST 1 VIEW, AP/PA ONLY INDICATION: Chest pain. COMPARISON: 01/09/2021. FINDINGS: The lungs are clear. The heart size within normal limits. There is no failure, effusion or pneumothorax. No free air beneath the diaphragms. IMPRESSION: No acute appearing abnormality. Dictated on workstation # [id number] Dict: 01/20/211955 Trans: 01/20/212001 [id number] Interpreted by: SOBIA LORA Electronically signed by: Impression Primary Impression: COPD exacerbation Additional Impression: Chest pain Disposition: HOME, SELF-CARE Condition: Stable Departure-Patient Inst. Decision time for Depature: 21:26 [facility] Primary Care Physician ROMERO LOERA APRN (Family) Primary Care Physician Patient Instructions: Chest Pain (DC) Add. Discharge Instructions: Steroids and antibiotics as directed. Return to ER for any concerns. All discharge instructions reviewed with patient and/or family. Voiced unders tanding. Scripts Prednisone (Prednisone) 20 Mg Tab 40 MG PO DAILY, #8 TAB 0 Refills Prov: KEIRA PENA APRN 01/20/21 Levofloxacin (Levofloxacin) 500 Mg Tablet 500 MG PO DAILY, #5 TAB 0 Refills Prov: KEIRA PENA APRN 01/20/21 KEIRA PENA APRN Jan 20, 2021 18:45
[2021-01-20 18:46] LABS: BASOPHILS # (AUTO) 0.1 10^3/uL (0.0-0.1); BASOPHILS % (AUTO) 1 % (0-10); EOSINOPHILS # (AUTO) 0.6 10^3/uL (0.0-0.3); EOSINOPHILS % (AUTO) 6 % (0-10); HEMATOCRIT 45 % (40-54); HEMOGLOBIN 14.6 g/dL (13.3-17.7); LYMPHOCYTES # (AUTO) 1.7 10^3/uL (1.0-4.0); LYMPHOCYTES % (AUTO) 19 % (12-44); MEAN CORPUSCULAR HEMOGLOBIN 30 pg (25-34); MEAN CORPUSCULAR HGB CONC 33 g/dL (32-36); MEAN CORPUSCULAR VOLUME 91 fL (80-99); MEAN PLATELET VOLUME 10.2 fL (9.0-12.2); MONOCYTES # (AUTO) 0.7 10^3/uL (0.0-1.0); MONOCYTES % (AUTO) 7 % (0-12); NEUTROPHILS # (AUTO) 6.3 10^3/uL (1.8-7.8); NEUTROPHILS % (AUTO) 67 % (42-75); PLATELET COUNT 251 10^3/uL (130-400); WHITE BLOOD COUNT 9.3 10^3/uL (4.3-11.0)
[2021-01-20 18:57] LABS: ALBUMIN 4.2 GM/DL (3.2-4.5); INR 0.9 (0.8-1.4); PROTHROMBIN TIME PATIENT 12.9 SEC (12.2-14.7)
[2021-01-20 18:58] LABS: CHLORIDE 102 MMOL/L (98-107); SODIUM 139 MMOL/L (135-145)
[2021-01-20 18:59] LABS: CALCIUM 9.4 MG/DL (8.5-10.1)
[2021-01-20 19:00] LABS: GLUCOSE 89 MG/DL (70-105); TOTAL PROTEIN 7.9 GM/DL (6.4-8.2)
[2021-01-20] MEDS ORDERED: KETOROLAC 30 MG/ML VIAL IVP ONE (19:00)
[2021-01-20 19:01] LABS: CARBON DIOXIDE 24 MMOL/L (21-32)
[2021-01-20 19:02] LABS: BILIRUBIN,TOTAL 0.5 MG/DL (0.1-1.0)
[2021-01-20 19:03] LABS: ALKALINE PHOSPHATASE 106 U/L (40-136)
[2021-01-20 19:04] LABS: CREATININE SERUM 0.95 MG/DL (0.60-1.30); GFR ESTIMATED 88
[2021-01-20 19:05] LABS: BUN/CREATININE RATIO 7
[2021-01-20 19:06] LABS: ALANINE AMINOTRANSFERASE 41 U/L (0-55); MAGNESIUM 1.9 MG/DL (1.6-2.4)
--- NOTE | 2021-01-20 20:02 | Diagnostic Imaging Report ---
INDICATION: Chest pain. COMPARISON: 01/09/2021. FINDINGS: The lungs are clear. The heart size within normal limits. There is no failure, effusion or pneumothorax. No free air beneath the diaphragms. IMPRESSION: No acute appearing abnormality. Dictated by: Dictated on workstation # [id number]
[2021-01-20] MEDS ORDERED: NS 100 ML (IVPB) BAG IV ONE (20:15)
[2021-01-20] MEDS ORDERED: IOHEXOL 350 MG/ML 100 ML (OMNIPAQUE 350) VIAL IV ONE (20:15)
[2021-01-20] MEDS ORDERED: HOLD METFORMIN - RECEIVED CONTRAST 20 ML VIAL IV SCH (20:15)
--- NOTE | 2021-01-20 21:17 | Diagnostic Imaging Report ---
INDICATION: Chest pain TECHNIQUE: Multiple contiguous axial images were obtained through the chest after uneventful bolus administration of intravenous contrast. 3D reconstructed CTA MIP acquisitions were also performed. Auto Exposure Controls were utilized during the CT exam to meet ALARA standards for radiation dose reduction. COMPARISON: CTA chest is compared to 09/01/2020. FINDINGS: The pulmonary parenchymal vessels are well-opacified with no CT evidence of pulmonary emboli. There is no evidence of aortic dissection or aneurysm. Great vessel origins are patent and without stenosis. There are no enlarged mediastinal or hilar nodes. There are no enlarged axillary nodes or chest wall lesions. There is no pleural or pericardial fluid. Visualized portions of the upper abdomen show no acute finding. Lung parenchymal windows demonstrate some motion artifact. There are a few minimal patchy areas of infiltrate in the right lower lobe and in the right upper lobe compatible with pneumonia. These findings were not present on the previous study. IMPRESSION: Patchy areas of infiltrate are seen in the right upper lobe and right lower lobe. I suspect an inflammatory process such as pneumonia. There is no CT evidence of pulmonary emboli or aortic dissection or aneurysm. Dictated by: Dictated on workstation # [id number]
[2021-01-20] MEDS ORDERED: LEVO500T80 PO (21:28)
[2021-01-20] MEDS ORDERED: PRD20T PO (21:28)
[2021-01-20] MEDS ORDERED: cefTRIAXone 1,000 MG in WATER (STERILE) FOR INJECTION 10 ML IV ONE (21:30)
[2021-01-20] MEDS ORDERED: methylPREDNISolone 125 MG (Solu-MEDROL) VIAL IVP ONE (21:30)
[2021-01-20 21:43] VITALS: BP 136/97
== END 2021-01-20 22:04 | disposition home or self-care (01) ==
LOC: EDUNIT# 18:05 → ER 18:07
DX: J44.1 Chronic obstructive pulmonary disease with (acute) exacerbation (principal); R07.9 Chest pain, unspecified; G47.30 Sleep apnea, unspecified; I10 Essential (primary) hypertension; E03.9 Hypothyroidism, unspecified; Z79.890 Hormone replacement therapy; Z86.16 Personal history of COVID-19
CPT/HCPCS: 36415; 71045; 71275; 80053; 83735; 83874; 83880; 84484; 85025; 85379; 85610; 85730; 93005; 93041

== ENCOUNTER → 2021-01-20 | Outpatient (CLI) | payer BC ==
[~2021-01-20] MED LIST changes: +CEFD300C3 PO; +ONDA8TAB13 PO; +RT-ALBUTEROL SULF 2.5 MG/3 ML PRE-MIX VIAL INH ONE
== END ==
LOC: RT 17:09
PROVIDERS: ATTEND Internal Medicine Critical Care Medicine
DX: J44.9 Chronic obstructive pulmonary disease, unspecified (principal)
CPT/HCPCS: 94060; 94726; 94729

== ENCOUNTER 2021-03-02 17:15 | Emergency (ER) | payer BC ==
[~2021-03-02] VITALS: Ht 175.3 cm; Wt 107.0 kg
--- NOTE | 2021-03-02 18:16 | ED Chest Pain ---
General Chief Complaint: Chest Wall Stated Complaint: RIB PAIN Nursing Triage Note: PT AMB TO TRIAGE WITH COMPLAINT OF LEFT SIDED RIB PAIN. STATES PAIN STARTED SUNDAY AFTER REACHING INTO HIS CAR TO RETRIEVE KEYS. Source: patient Exam Limitations: no limitations (KEIRA PENA APRN) History of Present Illness Date Seen by Provider: Mar 02, 2021 Time Seen by Provider: 18:13 Initial Comments To ER with reports of left lateral chest wall pain. This began on Sunday after he reached into his car to grab his keys through the open window. It hurts worse to cough sneeze or deep breathe. He has an extensive COPD history and follows with pulmonology. Timing/Duration: changing over time Severity/Quality: moderate Location: central Radiation: no radiation Activities at Onset: none ASA po MANAGER OF PHARMACY: No NTG SL MANAGER OF PHARMACY: No (KEIRA PENA APRN) Allergies and Home Medications Allergies Coded Allergies: No Known Drug Allergies (Unverified , 05/04/11) Patient Home Medication List Home Medication List Reviewed: Yes (KEIRA PENA APRN) Albuterol Sulfate (Albuterol Sulfate) 2.5 Mg/3 Ml Vial.neb, 2.5 MG IH Q4H PRN for WHEEZING Prescribed by: KEIRA PENA on 07/27/17 1448 Albuterol Sulfate (Albuterol Sulfate) 2.5 Mg/3 Ml Vial.neb, 2.5 MG INH Q4H PRN for WHEEZING Prescribed by: KEIRA PENA on 12/27/18 1736 Albuterol Sulfate (Albuterol Sulfate) 2.5 Mg/3 Ml Vial.neb, 2.5 MG INH Q4H PRN for WHEEZING Prescribed by: KEIRA PENA on 11/06/20 1735 Azithromycin (Zithromax) 250 Mg Tablet, 250 MG PO UD Prescribed by: KEIRA PENA on 04/02/18 2241 Cefdinir (Cefdinir) 300 Mg Capsule, 300 MG PO BID Prescribed by: NÉSTOR ESPINOZA on 01/09/21 2341 Cefuroxime Axetil (Cefuroxime) 250 Mg Tablet, 250 MG PO BID Prescribed by: KEIRA PENA on 04/05/192005 Hydrocodone/Acetaminophen (Hydrocodone-Acetamin 5-325 mg) 1 Each Tablet, 1 TAB PO Q4H PRN for PAIN-MODERATE (5-7) Prescribed by: KEIRA PENA on 03/02/21 1904 Levofloxacin (Levofloxacin) 500 Mg Tablet, 500 MG PO DAILY Prescribed by: MIKE CHIN on 05/13/20 1215 Levofloxacin (Levofloxacin) 500 Mg Tablet, 500 MG PO DAILY Prescribed by: KEIRA PENA on 01/20/212127 Levothyroxine Sodium (Levothyroxine 50 Mcg Tab) 50 Mcg Tablet, 50 MCG PO DAILY, (Reported) Entered as Reported by: THADDEUS STAHL on 11/12/12 1129 Ondansetron (Ondansetron Odt) 4 Mg Tab.rapdis, 4 MG PO Q6H PRN for NAUSEA/VOMITING Prescribed by: EDWIN PETER on 08/16/18 1435 Ondansetron (Ondansetron Odt) 8 Mg Tab.rapdis, 8 MG PO Q4H PRN for NAUSEA/VOMITING Prescribed by: NÉSTOR ESPINOZA on 01/09/21 2341 Pramoxine HCl (Proctofoam) 15 Gm Foam, 1 APPLIC TP QID Prescribed by: EARNESTINE WILKERSON on 06/03/17 2315 Prednisone (Prednisone) 20 Mg Tab, 40 MG PO DAILY Prescribed by: KEIRA PENA on 07/27/17 1448 Prednisone (Prednisone) 5 Mg Tablet, 5 MG PO UD Prescribed by: KEIRA PENA on 04/02/18 2241 Prednisone (Prednisone) 20 Mg Tab, 40 MG PO DAILY Prescribed by: EDWIN PETER on 07/06/18 0225 Prednisone (Prednisone) 20 Mg Tab, 40 MG PO DAILY Prescribed by: EDWIN PETER on 08/16/18 1435 Prednisone (Prednisone) 20 Mg Tab, 40 MG PO DAILY Prescribed by: KEIRA PENA on 12/27/18 173 Prednisone (Prednisone) 20 Mg Tab, 40 MG PO DAILY Prescribed by: KEIRA PENA on 04/05/192005 Prednisone (Prednisone) 20 Mg Tab, 40 MG PO DAILY Prescribed by: KEIRA PENA on 11/06/20 173 Prednisone (Prednisone) 20 Mg Tab, 40 MG PO DAILY Prescribed by: KEIRA PENA on 01/20/212127 [Brio inhaler] , (Reported) Entered as Reported by: SHARYN MEJIA on 06/03/172223 Review of Systems Review of Systems Constitutional: see HPI EENTM: No Symptoms Reported Respiratory: No Symptoms Reported, See HPI Cardiovascular: No Symptoms Reported Gastrointestinal: No Symptoms Reported Genitourinary: No Symptoms Reported Musculoskeletal: no symptoms reported Skin: no symptoms reported Psychiatric/Neurological: No Symptoms Reported Endocrine: No Symptoms Reported Hematologic/Lymphatic: No Symptoms Reported (KEIRA PENA APRN) Past Ruzpaup-Gdleik-Korujh Hx Patient Social History Tobacco Use?: No Use of E-Cig and/or Vaping dev: No Substance use?: No Pt feels they are or have been: No (KEIRA PENA APRN) Immunizations Up To Date Tetanus Booster (TDap): Less than 5yrs PED Vaccines UTD: Yes First/Initial COVID19 Vaccinat: 01/17/21 Second COVID19 Vaccination Elian: FEB 2021 (KEIRA PENA APRN) Seasonal Allergies Seasonal Allergies: No (KEIRA EPNA APRN) Past Medical History Surgery/Hospitalization HX: DENIES. Surgeries: Yes (HEART CATH 2011) Cardiac Respiratory: Yes Sleep Apnea, COPD Currently Using CPAP: Yes Currently Using BIPAP: No Cardiac: Yes Hypertension Neurological: No Reproductive Disorders: No Genitourinary: No Gastrointestinal: No Musculoskeletal: No Endocrine: Yes Hypothyroidsim HEENT: No Cancer: No Psychosocial: Yes Anxiety Integumentary: No Blood Disorders: No (KEIRA PENA APRN) Family Medical History No Pertinent Family Hx (KEIRA PENA APRN) Physical Exam Vital Signs Vital Signs - First Documented 03/02/21 17:30 Temp 36.8 Pulse 77 Resp 18 B/P (MAP) 142/95 (111) Pulse Ox 97 O2 Delivery Room Air (ALEXIS,NÉSTOR K DO) Vital Signs Capillary Refill : Less Than 3 Seconds (KEIRA PENA APRN) Height, Weight, BMI Height: 5'9.00" Weight: 210lbs. 0oz. 95.369318kw; 34.00 BMI Method:Stated General Appearance: No Apparent Distress, WD/WN HEENT: PERRL/EOMI, TMs Normal Neck: Full Range of Motion, Normal Inspection Respiratory: No Accessory Muscle Use, No Respiratory Distress, Other (Left lateral chest wall is tenderness to palpation but without crepitus abrasion erythema or rash.) Cardiovascular: Regular Rate, Rhythm, Normal Peripheral Pulses Gastrointestinal: Normal Bowel Sounds, Non Tender, Soft Extremity: Normal Capillary Refill, Normal Inspection Neurologic/Psychiatric: Alert, Oriented x3 Skin: Normal Color, Warm/Dry (KEIRA PENA APRN) Progress/Results/Core Measures Results/Orders Vital Signs/I&O 03/02/21 03/02/21 03/02/21 17:30 19:13 19:13 Temp 36.8 36.8 36.5 Pulse 77 69 Resp 18 18 B/P (MAP) 142/95 (111) 135/89 Pulse Ox 97 99 O2 Delivery Room Air Room Air (NÉSTOR ESPINOZA DO) Blood Pressure Mean: 111 Departure Impression Primary Impression: Chest wall pain Disposition: HOME, SELF-CARE Condition: Stable Departure-Patient Inst. Decision time for Depature: 18:15 (KEIRA PENA APRN) Referrals: [facility] (PCP) Primary Care Physician ROMERO LOERA APRN (Family) Primary Care Physician Patient Instructions: RIB CONTUSION Scripts Hydrocodone/Acetaminophen (Hydrocodone-Acetamin 5-325 mg) 1 Each Tablet 1 TAB PO Q4H PRN for PAIN-MODERATE (5-7), #14 TAB Prov: KEIRA PENA APRN 03/02/21 ATTENDING PHYSICIAN NOTE: I WAS PHYSICALLY PRESENT ER PHYSICIAN WHEN THIS PATIENT WAS IN ER, BUT I WAS NOT INVOLVED IN DECISION MAKING OR ANY CARE OF THIS PATIENT. (NÉSTOR ESPINOZA DO) KEIRA PENA APRN Mar 02, 2021 18:15 NÉSTOR ESPINOZA DO Mar 03, 2021 06:34
--- NOTE | 2021-03-02 18:57 | Diagnostic Imaging Report ---
INDICATION: Left-sided rib pain. EXAMINATION: PA chest and AP and oblique views of the left ribs were obtained. FINDINGS: Heart and mediastinal silhouette are normal in appearance. The lungs are clear. There is no pneumothorax or pleural fluid collection. Bony structures appear unremarkable. IMPRESSION: Negative chest and left ribs. Dictated by: Dictated on workstation # [id number]
[2021-03-02] MEDS ORDERED: ACHD5005 PO (19:03)
[2021-03-02 19:13] VITALS: BP 135/89
[2021-03-02] MEDS: HYDROcodone/APAP 5 MG/325 MG (LORTAB) TAB PO ONE (19:13)
== END 2021-03-02 19:14 | disposition home or self-care (01) ==
LOC: EDUNIT# 17:15 → ER 17:19
DX: R07.89 Other chest pain (principal); G47.30 Sleep apnea, unspecified; J44.9 Chronic obstructive pulmonary disease, unspecified; I10 Essential (primary) hypertension; E03.9 Hypothyroidism, unspecified; Z79.890 Hormone replacement therapy; Z79.52 Long term (current) use of systemic steroids
CPT/HCPCS: 71101

== ENCOUNTER 2021-04-13 15:03 | Emergency (ER) | payer SELFPAY ==
[~2021-04-13] VITALS: Ht 175 cm; Wt 95.0 kg
[~2021-04-13 15:03] MED LIST changes: +ACHD5005 PO
[2021-04-13] MEDS ORDERED: methylPREDNISolone 125 MG (Solu-MEDROL) VIAL IVP ONE (15:30)
[2021-04-13] MEDS ORDERED: RT-ALBUTEROL/IPRATROPIUM 3 ML (DUONEB) VIAL INH ONE (15:30)
--- NOTE | 2021-04-13 15:35 | ED Dyspnea ---
General Chief Complaint: Respiratory Problems Stated Complaint: COPD Nursing Triage Note: AMB TO ROOM REPORTS THAT FOR 1 WEEK THINKS HIS COPD SYMPTOMS HAVE BEEN FLARING UP. HAS BEEN SOA WITH COUGH WORSE WHEN WALKING. HAD COVID IN DECEMBER HAD VACCINE IN JAN AND FEB AND BOSSTER IN MAR. ALONG WITH FLU SHOT. 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 Patient reports symptoms over the past week. Shortness of breath worse with ambulation and at night when he lying down. Patient states he had intermittent chest pain but believes this is secondary to the wheezing. Currently out of his DuoNeb at home for his COPD. He reports a wet cough. P atient states he was diagnosed with Covid this past summer. Patient scheduled to follow-up with an echocardiogram this next month concerning that his COPD is resulting in "heart Problems". Denies a history of CHF, leg swelling. Denies fever, vomiting, diarrhea. Patient denies oxygen at home. Currently using his albuterol rescue inhaler. Allergies and Home Medications Allergies Coded Allergies: No Known Drug Allergies (Unverified , 05/04/11) Patient Home Medication List Home Medication List Reviewed: Yes Albuterol Sulfate (Albuterol Sulfate) 2.5 Mg/3 Ml Vial.neb, 2.5 MG IH Q4H PRN for WHEEZING Prescribed by: KEIRA PENA on 07/27/17 1448 Albuterol Sulfate (Albuterol Sulfate) 2.5 Mg/3 Ml Vial.neb, 2.5 MG INH Q4H PRN for WHEEZING Prescribed by: KEIRA PENA on 12/27/18 1736 Albuterol Sulfate (Albuterol Sulfate) 2.5 Mg/3 Ml Vial.neb, 2.5 MG INH Q4H PRN for WHEEZING Prescribed by: KEIRA PENA on 11/06/20 1735 Azithromycin (Zithromax) 250 Mg Tablet, 250 MG PO UD Prescribed by: KEIRA PENA on 04/02/18 2241 Cefdinir (Cefdinir) 300 Mg Capsule, 300 MG PO BID Prescribed by: NÉSTOR ESPINOZA on 01/09/21 2341 Cefuroxime Axetil (Cefuroxime) 250 Mg Tablet, 250 MG PO BID Prescribed by: KEIRA PENA on 04/05/192005 Doxycycline Monohydrate (Doxycycline Monohydrate) 100 Mg Capsule, 100 MG PO BID Prescribed by: MIKAEL FRIEND on 04/13/21 1636 Hydrocodone/Acetaminophen (Hydrocodone-Acetamin 5-325 mg) 1 Each Tablet, 1 TAB PO Q4H PRN for PAIN-MODERATE (5-7) Prescribed by: KEIRA PENA on 03/02/21 1904 Ipratropium/Albuterol Sulfate (Iprat-Albut 0.5-3(2.5) mg/3 ml) 3 Ml Ampul.neb, 3 ML IH Q4H PRN for SHORTNESS OF BREATH Prescribed by: MIKAEL FRIEND on 04/13/21 1636 Levofloxacin (Levofloxacin) 500 Mg Tablet, 500 MG PO DAILY Prescribed by: MIKE CHIN on 05/13/20 1215 Levofloxacin (Levofloxacin) 500 Mg Tablet, 500 MG PO DAILY Prescribed by: KEIRA PENA on 01/20/21 2128 Levothyroxine Sodium (Levothyroxine 50 Mcg Tab) 50 Mcg Tablet, 50 MCG PO DAILY, (Reported) Entered as Reported by: THADDEUS STAHL on 11/12/12 1129 Ondansetron (Ondansetron Odt) 4 Mg Tab.rapdis, 4 MG PO Q6H PRN for NAUSEA/VOMITING Prescribed by: EDWIN PETER on 08/16/18 1435 Ondansetron (Ondansetron Odt) 8 Mg Tab.rapdis, 8 MG PO Q4H PRN for NAUSEA/VOMITING Prescribed by: NÉSTOR ESPINOZA on 01/09/21 2341 Pramoxine HCl (Proctofoam) 15 Gm Foam, 1 APPLIC TP QID Prescribed by: EARNESTINE WILKERSON on 06/03/17 2315 Prednisone (Prednisone) 20 Mg Tab, 40 MG PO DAILY Prescribed by: KEIRA PENA on 07/27/17 1448 Prednisone (Prednisone) 5 Mg Tablet, 5 MG PO UD Prescribed by: KEIRA PENA on 04/02/18 2241 Prednisone (Prednisone) 20 Mg Tab, 40 MG PO DAILY Prescribed by: EDWIN PETER on 07/06/18 0225 Prednisone (Prednisone) 20 Mg Tab, 40 MG PO DAILY Prescribed by: EDWIN PETER on 08/16/18 1435 Prednisone (Prednisone) 20 Mg Tab, 40 MG PO DAILY Prescribed by: KEIRA PENA on 12/27/18 173 Prednisone (Prednisone) 20 Mg Tab, 40 MG PO DAILY Prescribed by: KEIRA PENA on 04/05/192005 Prednisone (Prednisone) 20 Mg Tab, 40 MG PO DAILY Prescribed by: KEIRA PENA on 11/06/20 173 Prednisone (Prednisone) 20 Mg Tab, 40 MG PO DAILY Prescribed by: KEIRA PENA on 01/20/212127 Prednisone (Prednisone) 50 Mg Tab, 50 MG PO DAILY Prescribed by: MIKAEL FRIEND on 04/13/21 1636 [Brio inhaler] , (Reported) Entered as Reported by: SHARYN MEJIA on 06/03/17 2224 Review of Systems Review of Systems Constitutional: No chills Respiratory: cough, dyspnea on exertion, short of breath, wheezing Cardiovascular: chest pain Gastrointestinal: No RUQ, No LUQ, No RLQ, No LLQ Genitourinary: No no symptoms reported Musculoskeletal: No see HPI, No back pain, No gout, No joint pain Skin: No change in color, No change in hair/nails Psychiatric/Neurological: Denies Anxiety, Denies Depressed Past Bxmphtp-Mlfkda-Hkwnal Hx Patient Social History Substance use?: No Alcohol Use?: Yes Alcohol Frequency: Rarely Pt feels they are or have been: No Immunizations Up To Date Tetanus Booster (TDap): Less than 5yrs PED Vaccines UTD: Yes First/Initial COVID19 Vaccinat: JAN Second COVID19 Vaccination Elian: Feb COVID19 Vaccination Date: 01/17/21 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 Surgeries: Yes (HEART CATH 2011) Cardiac Respiratory: Yes Sleep Apnea, COPD Currently Using CPAP: Yes Currently Using BIPAP: No Cardiac: Yes Hypertension Neurological: No Reproductive Disorders: No Genitourinary: No Gastrointestinal: No Musculoskeletal: No Endocrine: Yes Hypothyroidsim HEENT: No Cancer: No Psychosocial: Yes Anxiety Integumentary: No Blood Disorders: No Family Medical History No Pertinent Family Hx Physical Exam Vital Signs Vital Signs - First Documented 04/13/21 15:12 Temp 36.3 Pulse 93 Resp 18 B/P (MAP) 142/109 (120) Pulse Ox 97 O2 Delivery Room Air Capillary Refill : Less Than 3 Seconds Height, Weight, BMI Height: 5'9.00" Weight: 210lbs. 0oz. 95.530365rm; 31.00 BMI Method:Stated General Appearance: No Apparent Distress, WD/WN HEENT: No PERRL/EOMI, No TMs Normal, No Normal ENT Inspection Neck: Full Range of Motion, Normal Inspection, Non Tender Respiratory: Chest Non Tender, Lungs Clear, Wheezing Cardiovascular: Regular Rate, Rhythm, No Edema, No Gallop Gastrointestinal: Normal Bowel Sounds, No Organomegaly, No Pulsatile Mass Extremity: Normal Capillary Refill, Normal Inspection, Normal Range of Motion Neurologic/Psychiatric: Alert, Oriented x3, No Motor/Sensory Deficits Skin: Normal Color, Warm/Dry Progress/Results/Core Measures Results/Orders Lab Results Laboratory Tests Test 04/13/21 15:47 Range/Units White Blood Count 8.0 4.3-11.0 10^3/uL Red Blood Count 4.64 4.30-5.52 10^6/uL Hemoglobin 14.0 13.3-17.7 g/dL Hematocrit 42 40-54 % Mean Corpuscular Volume 90 80-99 fL Mean Corpuscular Hemoglobin 30 25-34 pg Mean Corpuscular Hemoglobin Concent 34 32-36 g/dL Red Cell Distribution Width 12.9 10.0-14.5 % Platelet Count 279 130-400 10^3/uL Mean Platelet Volume 9.5 9.0-12.2 fL Immature Granulocyte % (Auto) 0 % Neutrophils (%) (Auto) 51 42-75 % Lymphocytes (%) (Auto) 29 12-44 % Monocytes (%) (Auto) 6 0-12 % Eosinophils (%) (Auto) 14 H 0-10 % Basophils (%) (Auto) 1 0-10 % Neutrophils # (Auto) 4.1 1.8-7.8 X 10^3 Lymphocytes # (Auto) 2.3 1.0-4.0 X 10^3 Monocytes # (Auto) 0.5 0.0-1.0 X 10^3 Eosinophils # (Auto) 1.1 H 0.0-0.3 10^3/uL Basophils # (Auto) 0.1 0.0-0.1 10^3/uL Immature Granulocyte # (Auto) 0.0 0.0-0.1 10^3/uL Sodium Level 137 135-145 MMOL/L Potassium Level 3.9 3.6-5.0 MMOL/L Chloride Level 103 98-107 MMOL/L Carbon Dioxide Level 23 21-32 MMOL/L Anion Gap 11 5-14 MMOL/L Blood Urea Nitrogen 12 7-18 MG/DL Creatinine 0.91 0.60-1.30 MG/DL Estimat Glomerular Filtration Rate 92 BUN/Creatinine Ratio 13 Glucose Level 87 70-105 MG/DL Calcium Level 9.1 8.5-10.1 MG/DL Corrected Calcium 8.9 8.5-10.1 MG/DL Total Bilirubin 0.4 0.1-1.0 MG/DL Aspartate Amino Transf (AST/SGOT) 17 5-34 U/L Alanine Aminotransferase (ALT/SGPT) 17 0-55 U/L Alkaline Phosphatase 101 40-136 U/L Troponin I < 0.028 <0.028 NG/ML B-Type Natriuretic Peptide 15.1 <100.0 PG/ML Total Protein 7.7 6.4-8.2 GM/DL Albumin 4.2 3.2-4.5 GM/DL My Orders Orders - JOSE LICEA PA Ekg Tracing (04/13/21 15:27) Cbc With Automated Diff (04/13/21 15:27) Comprehensive Metabolic Panel (04/13/21 15:27) Troponin I (04/13/21 15:27) Chest Pa/Lat (2 View) (04/13/21 15:27) Methylprednisolone Sod Succ (Solu-Medrol (04/13/21 15:30) Albuterol/Ipra Inhalation Soln (Duoneb I (04/13/21 15:30) Svn Small Volume Nebulizer (04/13/21 15:27) BNP (04/13/21 15:30) Medications Given in ED Current Medications Medications Dose Ordered Sig/Anatoly Route Start Time Stop Time Status Last Admin Dose Admin Albuterol/ Ipratropium 3 ml ONCE ONCE INH 04/13/21 15:30 04/13/21 15:31 DC 04/13/21 15:38 3 ML Methylprednisolone Sodium Succinate 125 mg ONCE ONCE IVP 04/13/21 15:30 04/13/21 15:31 DC 04/13/21 15:43 125 MG Vital Signs/I&O 04/13/21 04/13/21 04/13/21 15:12 15:38 16:39 Temp 36.3 Pulse 93 85 Resp 18 18 B/P (MAP) 142/109 (120) 141/101 Pulse Ox 97 96 98 O2 Delivery Room Air Room Air Room Air Blood Pressure Mean: 120 Initial ECG Impression Date: Apr 13, 2021 Initial ECG Impression Time: 15:37 Initial ECG Rate: 84 Initial ECG Rhythm: Normal Sinus Initial ECG Intervals: Normal Initial ECG Impression: Normal Comment Sinus rhythm, 84 bpm, QRS duration 100 MS, QTC 441 MS Departure Communication (Admissions) Patient with diffuse wheezing. History of COPD. Currently out of his DuoNeb nebulizer treatment at home. He is not hypoxic. No retractions. Chest x-ray negative for pneumonia. Normal white blood count. Reports shortness of breath worse with ambulation. No appreciation of lower leg swelling. He Is concern for cardiac etiology cardiac work-up unremarkable. EKG sinus rhythm. No evidence of A. fib, a flutter, ST elevation or depression. Denies of any current chest pain. Symptoms appear to be COPD exacerbation. Will discharge with short burst steroids, refill his duo nebs and prescribed doxycycline prophylactically. Patient was given DuoNeb and Solu-Medrol here with improvement. Patient in no acute respiratory distress. Oxygen 97% on room air. Return precautions were discussed. Follow-up with PCP in 2 to 3 days for reevaluation. Patient was diagnosed with Covid this past December. Scheduled to have a cardiac work-up with his primary care physician. Denies history of [place] or known coronary artery disease. Impression Primary Impression: COPD exacerbation Disposition: HOME, SELF-CARE Condition: Improved Departure-Patient Inst. Decision time for Depature: 16:22 Referrals: [facility] (PCP) Primary Care Physician ROMERO LOERA APRN (Family) Primary Care Physician Patient Instructions: Chronic Bronchitis (DC) Scripts Ipratropium/Albuterol Sulfate (Iprat-Albut 0.5-3(2.5) mg/3 ml) 3 Ml Ampul.neb 3 ML IH Q4H PRN for SHORTNESS OF BREATH for 15 Days, #90 EACH Prov: JOSE LICEA 04/13/21 Prednisone (Prednisone) 50 Mg Tab 50 MG PO DAILY for 5 Days, #5 TAB Prov: JOSE LICEA 04/13/21 Doxycycline Monohydrate (Doxycycline Monohydrate) 100 Mg Capsule 100 MG PO BID for 7 Days, #14 CAP Prov: JOSE LICEA 04/13/21 Work/School Note: Family Work Note, Work Release Form Date Seen in the Emergency Department: Apr 13, 2021 Return to Work: Apr 16, 2021 Restrictions: No Restrictions JOSE LICEA Apr 13, 2021 15:35
[2021-04-13 15:52] LABS: BASOPHILS # (AUTO) 0.1 10^3/uL (0.0-0.1); BASOPHILS % (AUTO) 1 % (0-10); EOSINOPHILS # (AUTO) 1.1 10^3/uL (0.0-0.3); EOSINOPHILS % (AUTO) 14 % (0-10); HEMATOCRIT 42 % (40-54); LYMPHOCYTES # (AUTO) 2.3 X 10^3 (1.0-4.0); LYMPHOCYTES % (AUTO) 29 % (12-44); MEAN CORPUSCULAR HEMOGLOBIN 30 pg (25-34); MEAN CORPUSCULAR HGB CONC 34 g/dL (32-36); MEAN CORPUSCULAR VOLUME 90 fL (80-99); MEAN PLATELET VOLUME 9.5 fL (9.0-12.2); MONOCYTES # (AUTO) 0.5 X 10^3 (0.0-1.0); MONOCYTES % (AUTO) 6 % (0-12); NEUTROPHILS # (AUTO) 4.1 X 10^3 (1.8-7.8); NEUTROPHILS % (AUTO) 51 % (42-75); PLATELET COUNT 279 10^3/uL (130-400)
--- NOTE | 2021-04-13 16:03 | Diagnostic Imaging Report ---
INDICATION: shortness of breath. TECHNIQUE: Two view chest 4:01 PM CORRELATION STUDY: 03/02/2021 FINDINGS: The heart size, mediastinal configuration and pulmonary vasculature are within normal limits. The lungs are clear with no consolidating infiltrate. There is no significant pleural effusion or pneumothorax. Visualized osseous structures are unremarkable. IMPRESSION: 1. Negative for acute abnormality of the chest. Dictated by: Dictated on workstation # [id number]
[2021-04-13 16:10] LABS: ALANINE AMINOTRANSFERASE 17 U/L (0-55); ALBUMIN 4.2 GM/DL (3.2-4.5); ALKALINE PHOSPHATASE 101 U/L (40-136); BILIRUBIN,TOTAL 0.4 MG/DL (0.1-1.0); BUN/CREATININE RATIO 13; CALCIUM 9.1 MG/DL (8.5-10.1); CARBON DIOXIDE 23 MMOL/L (21-32); CHLORIDE 103 MMOL/L (98-107); CREATININE SERUM 0.91 MG/DL (0.60-1.30); GFR ESTIMATED 92; GLUCOSE 87 MG/DL (70-105); POTASSIUM 3.9 MMOL/L (3.6-5.0); SODIUM 137 MMOL/L (135-145); TOTAL PROTEIN 7.7 GM/DL (6.4-8.2)
[2021-04-13] MEDS ORDERED: DOXY-311 PO (16:36)
[2021-04-13] MEDS ORDERED: PRD50T PO (16:36)
[2021-04-13] MEDS ORDERED: IPRA3AMP31 IH (16:36)
[2021-04-13 16:39] VITALS: BP 141/101
== END 2021-04-13 16:39 | disposition home or self-care (01) ==
LOC: EDUNIT# 15:03 → ER 15:07
DX: J44.1 Chronic obstructive pulmonary disease with (acute) exacerbation (principal); G47.30 Sleep apnea, unspecified; I10 Essential (primary) hypertension; E03.9 Hypothyroidism, unspecified; Z79.890 Hormone replacement therapy; Z79.52 Long term (current) use of systemic steroids; Z79.899 Other long term (current) drug therapy
CPT/HCPCS: 36415; 71046; 80053; 83880; 84484; 85025; 93005; 94640

== ENCOUNTER 2021-06-15 11:31 | Emergency (ER) | payer SELFPAY ==
[~2021-06-15] VITALS: Ht 175.3 cm; Wt 107.9 kg
[~2021-06-15 11:31] MED LIST changes: +DOXY-311 PO; +IPRA3AMP31 IH; -LEVO500T80 PO; +LEVO500T81 PO; +PRD50T PO
[2021-06-15] MEDS ORDERED: ASPIRIN 325 MG (5 GR) TABLET PO ONE (12:15)
[2021-06-15] MEDS ORDERED: NS IV 1000 ML 1,000 ML IV SCH (12:15)
[2021-06-15] MEDS ORDERED: MECLIZINE 25 MG (ANTIVERT) TAB PO ONE (12:15)
--- NOTE | 2021-06-15 12:17 | ED Chest Pain ---
General Chief Complaint: General Problems/Pain Stated Complaint: COPD,DIZZINESS Nursing Triage Note: PT AMB TO [facility] 6 WITH COMPLAINT OF DIZZINESS, NOT FEELING WELL. STATES BP HAS BEEN ELEVATED TO 150s/100s. WAS SENT OVER BY PCP Source: patient Exam Limitations: no limitations History of Present Illness Date Seen by Provider: Jun 15, 2021 Time Seen by Provider: 12:15 Initial Comments Patient is a 41-year-old male with a history of COPD, hypertension, hyperthyroidism who presents to ED for dizziness and chest pain. Patient states he had left-sided chest pain yesterday lasted for a few hours. Described as tightness. No chest pain today. Patient reports intermittent dizziness that started a few days ago. Appears to be worse at night when moving his head. Dizziness while driving to his primary care physician visit today. No current dizziness at this time but states when he does move his head he does feel a little dizzy. Reports fatigue weakness. States he had a negative outpatient Covid influenza. Reports normal urination. No history of smoking, diabetes, high cholesterol. Family cardiac history. Patient was sent to the ED for further cardiac work-up from her primary care physician at [facility] Allergies and Home Medications Allergies Coded Allergies: No Known Drug Allergies (Unverified , 05/04/11) Patient Home Medication List Home Medication List Reviewed: Yes Albuterol Sulfate (Albuterol Sulfate) 2.5 Mg/3 Ml Vial.neb, 2.5 MG IH Q4H PRN for WHEEZING Prescribed by: KEIRA PENA on 07/27/17 1448 Albuterol Sulfate (Albuterol Sulfate) 2.5 Mg/3 Ml Vial.neb, 2.5 MG INH Q4H PRN for WHEEZING Prescribed by: KEIRA PENA on 12/27/18 1736 Albuterol Sulfate (Albuterol Sulfate) 2.5 Mg/3 Ml Vial.neb, 2.5 MG INH Q4H PRN for WHEEZING Prescribed by: KEIRA PENA on 11/06/20 1735 Azithromycin (Zithromax) 250 Mg Tablet, 250 MG PO UD Prescribed by: KEIRA PENA on 04/02/18 2241 Cefdinir (Cefdinir) 300 Mg Capsule, 300 MG PO BID Prescribed by: NÉSTOR ESPINOZA on 01/09/21 2341 Cefuroxime Axetil (Cefuroxime) 250 Mg Tablet, 250 MG PO BID Prescribed by: KEIRA PENA on 04/05/192005 Doxycycline Monohydrate (Doxycycline Monohydrate) 100 Mg Capsule, 100 MG PO BID Prescribed by: MIKAEL FRIEND on 04/13/21 1636 Hydrocodone/Acetaminophen (Hydrocodone-Acetamin 5-325 mg) 1 Each Tablet, 1 TAB PO Q4H PRN for PAIN-MODERATE (5-7) Prescribed by: KEIRA PENA on 03/02/21 1904 Ipratropium/Albuterol Sulfate (Iprat-Albut 0.5-3(2.5) mg/3 ml) 3 Ml Ampul.neb, 3 ML IH Q4H PRN for SHORTNESS OF BREATH Prescribed by: MIKAEL FRIEND on 04/13/21 1636 Levofloxacin (Levofloxacin) 500 Mg Tablet, 500 MG PO DAILY Prescribed by: MIKE CHIN on 05/13/20 1215 Levofloxacin (Levofloxacin) 500 Mg Tablet, 500 MG PO DAILY Prescribed by: KEIRA PENA on 01/20/218 Levothyroxine Sodium (Levothyroxine 50 Mcg Tab) 50 Mcg Tablet, 50 MCG PO DAILY, (Reported) Entered as Reported by: THADDEUS STAHL on 11/12/12 1129 Meclizine HCl (Meclizine HCl) 25 Mg Tablet, 25 MG PO QID PRN for DIZZINESS Prescribed by: MIKAEL FRIEND on 06/15/21 1621 Ondansetron (Ondansetron Odt) 4 Mg Tab.rapdis, 4 MG PO Q6H PRN for NAUSEA/VOMITING Prescribed by: EDWIN PETER on 08/16/18 1435 Ondansetron (Ondansetron Odt) 8 Mg Tab.rapdis, 8 MG PO Q4H PRN for NAUSEA/VOMITING Prescribed by: NÉSTOR ESPINOZA on 01/09/21 2341 Pramoxine HCl (Proctofoam) 15 Gm Foam, 1 APPLIC TP QID Prescribed by: EARNESTINE WILKERSON on 06/03/17 2315 Prednisone (Prednisone) 20 Mg Tab, 40 MG PO DAILY Prescribed by: KEIRA PENA on 07/27/17 1448 Prednisone (Prednisone) 5 Mg Tablet, 5 MG PO UD Prescribed by: KEIRA PENA on 04/02/18 2241 Prednisone (Prednisone) 20 Mg Tab, 40 MG PO DAILY Prescribed by: EDWIN PETER on 07/06/18 0225 Prednisone (Prednisone) 20 Mg Tab, 40 MG PO DAILY Prescribed by: EDWIN PETER on 08/16/18 1435 Prednisone (Prednisone) 20 Mg Tab, 40 MG PO DAILY Prescribed by: KEIRA PENA on 12/27/18 173 Prednisone (Prednisone) 20 Mg Tab, 40 MG PO DAILY Prescribed by: KEIRA PENA on 04/05/192005 Prednisone (Prednisone) 20 Mg Tab, 40 MG PO DAILY Prescribed by: KEIRA PENA on 11/06/20 173 Prednisone (Prednisone) 20 Mg Tab, 40 MG PO DAILY Prescribed by: KEIRA PENA on 01/20/212127 Prednisone (Prednisone) 50 Mg Tab, 50 MG PO DAILY Prescribed by: MIKAEL FRIEND on 04/13/21 1636 [Brio inhaler] , (Reported) Entered as Reported by: SHARYN MEJIA on 06/03/174 Review of Systems Review of Systems Constitutional: No chills, No diaphoresis; malaise, weakness EENTM: No Double Vision, No Ear Drainage, No Ear Pain, No Mouth Pain Respiratory: Denies Cough, Denies SOA With Exertion, Denies SOA at Rest Cardiovascular: Chest Pain; Denies Edema, Denies Irregular Heart Rate Gastrointestinal: Denies Abdominal Pain, Denies Diarrhea, Denies Difficulty Swallowing, Denies Vomiting Genitourinary: Denies Burning, Denies Drainage Musculoskeletal: No back pain, No gout Skin: No see HPI, No change in color, No change in hair/nails All Other Systems Reviewed Negative Unless Noted: Yes Past Ajzpfbz-Bodzkq-Dsewue Hx Patient Social History Tobacco Use?: No Use of E-Cig and/or Vaping dev: No Substance use?: No Alcohol Use?: No Pt feels they are or have been: No Immunizations Up To Date Tetanus Booster (TDap): Less than 5yrs PED Vaccines UTD: Yes Influenza Vaccine Up-to-Date: Yes; Up-to-Date First/Initial COVID19 Vaccinat: JAN Second COVID19 Vaccination Elian: Feb COVID19 Vaccination Date: 04/04 Seasonal Allergies Seasonal Allergies: No Past Medical History Surgery/Hospitalization HX: COPD Surgeries: Yes (HEART CATH 2011) Cardiac Respiratory: Yes Sleep Apnea, COPD Currently Using CPAP: Yes Currently Using BIPAP: No Cardiac: Yes Hypertension Neurological: No Reproductive Disorders: No Genitourinary: No Gastrointestinal: No Musculoskeletal: No Endocrine: Yes Hypothyroidsim HEENT: No Cancer: No Psychosocial: Yes Anxiety Integumentary: No Blood Disorders: No Family Medical History No Pertinent Family Hx Physical Exam Vital Signs Vital Signs - First Documented 06/15/21 11:53 Temp 36.0 Pulse 92 Resp 19 B/P (MAP) 157/109 (125) Pulse Ox 99 O2 Delivery Room Air Capillary Refill : Less Than 3 Seconds Height, Weight, BMI Height: 5'9.00" Weight: 210lbs. 0oz. 95.073128yn; 35.00 BMI Method:Stated General Appearance: No Apparent Distress, WD/WN HEENT: PERRL/EOMI, TMs Normal, Pharynx Normal Neck: Full Range of Motion, Normal Inspection, Non Tender, Supple Respiratory: Chest Non Tender, Lungs Clear, Normal Breath Sounds, No Accessory Muscle Use, No Respiratory Distress Cardiovascular: Regular Rate, Rhythm, No Edema, No Gallop, No JVD, No Murmur Gastrointestinal: Normal Bowel Sounds, No Organomegaly, No Pulsatile Mass, Non Tender Extremity: Normal Capillary Refill, Normal Inspection, Non Tender Neurologic/Psychiatric: Alert, Oriented x3, No Motor/Sensory Deficits, Normal Mood/Affect Progress/Results/Core Measures Results/Orders Lab Results Laboratory Tests Test 06/15/21 12:38 06/15/21 12:47 06/15/21 15:40 Range/Units White Blood Count 8.9 4.3-11.0 10^3/uL Red Blood Count 4.74 4.30-5.52 10^6/uL Hemoglobin 13.9 13.3-17.7 g/dL Hematocrit 43 40-54 % Mean Corpuscular Volume 90 80-99 fL Mean Corpuscular Hemoglobin 29 25-34 pg Mean Corpuscular Hemoglobin Concent 33 32-36 g/dL Red Cell Distribution Width 12.3 10.0-14.5 % Platelet Count 312 130-400 10^3/uL Mean Platelet Volume 9.7 9.0-12.2 fL Immature Granulocyte % (Auto) 0 % Neutrophils (%) (Auto) 60 42-75 % Lymphocytes (%) (Auto) 20 12-44 % Monocytes (%) (Auto) 7 0-12 % Eosinophils (%) (Auto) 12 H 0-10 % Basophils (%) (Auto) 1 0-10 % Neutrophils # (Auto) 5.3 1.8-7.8 10^3/uL Lymphocytes # (Auto) 1.8 1.0-4.0 10^3/uL Monocytes # (Auto) 0.7 0.0-1.0 10^3/uL Eosinophils # (Auto) 1.1 H 0.0-0.3 10^3/uL Basophils # (Auto) 0.1 0.0-0.1 10^3/uL Immature Granulocyte # (Auto) 0.0 0.0-0.1 10^3/uL Sodium Level 136 135-145 MMOL/L Potassium Level 3.8 3.6-5.0 MMOL/L Chloride Level 102 98-107 MMOL/L Carbon Dioxide Level 27 21-32 MMOL/L Anion Gap 7 5-14 MMOL/L Blood Urea Nitrogen 15 7-18 MG/DL Creatinine 0.92 0.60-1.30 MG/DL Estimat Glomerular Filtration Rate 91 BUN/Creatinine Ratio 16 Glucose Level 86 70-105 MG/DL Calcium Level 9.6 8.5-10.1 MG/DL Corrected Calcium 9.5 8.5-10.1 MG/DL Total Bilirubin 0.3 0.1-1.0 MG/DL Aspartate Amino Transf (AST/SGOT) 17 5-34 U/L Alanine Aminotransferase (ALT/SGPT) 23 0-55 U/L Alkaline Phosphatase 92 40-136 U/L Creatine Kinase MB 2.2 <6.6 NG/ML Myoglobin 29.9 10.0-92.0 NG/ML Troponin I < 0.028 < 0.028 <0.028 NG/ML C-Reactive Protein High Sensitivity 0.54 H 0.00-0.50 MG/DL B-Type Natriuretic Peptide 14.5 <100.0 PG/ML Total Protein 8.0 6.4-8.2 GM/DL Albumin 4.1 3.2-4.5 GM/DL Lipase 33 8-78 U/L Urine Color YELLOW Urine Clarity CLEAR Urine pH 6.0 5-9 Urine Specific [place] 1.025 H 1.016-1.022 Urine Protein NEGATIVE NEGATIVE Urine Glucose (UA) NEGATIVE NEGATIVE Urine Ketones NEGATIVE NEGATIVE Urine Nitrite NEGATIVE NEGATIVE Urine Bilirubin NEGATIVE NEGATIVE Urine Urobilinogen 0.2 < = 1.0 MG/DL Urine Leukocyte Esterase NEGATIVE NEGATIVE Urine RBC (Auto) NEGATIVE NEGATIVE Urine RBC NONE /HPF Urine WBC RARE /HPF Urine Crystals PRESENT H /LPF Urine Amorphous Sediment RARE EDISON URATES H /LPF Urine Bacteria NEGATIVE /HPF Urine Casts NONE /LPF Urine Mucus NEGATIVE /LPF Urine Culture Indicated NO My Orders Orders - JOSE LICEA PA Cbc With Automated Diff (06/15/21 12:12) Comprehensive Metabolic Panel (06/15/21 12:12) Lipase (06/15/21 12:12) Hs C Reactive Protein (06/15/21 12:12) Troponin I Mcn[place] (06/15/21 12:12) Bnp [place] (06/15/21 12:12) Creatine Kinase Mb (06/15/21 12:12) Myoglobin Serum (06/15/21 12:12) Chest 1 View, Ap/Pa Only (06/15/21 12:12) Ua Culture If Indicated (06/15/21 12:12) Ns Iv 1000 Ml (Sodium Chloride 0.9%) (06/15/21 12:15) Meclizine Tablet (Antivert Tablet) (06/15/21 12:15) Ekg Tracing (06/15/21 12:12) Aspirin Tablet (Aspirin Tablet) (06/15/21 12:15) Troponin I [place] (06/15/21 14:42) Medications Given in ED Current Medications Medications Dose Ordered Sig/Anatoly Route Start Time Stop Time Status Last Admin Dose Admin Aspirin 325 mg ONCE ONCE PO 06/15/21 12:15 06/15/21 12:16 DC 06/15/21 12:36 325 MG Meclizine HCl 25 mg ONCE ONCE PO 06/15/21 12:15 06/15/21 12:16 DC 06/15/21 12:36 25 MG Vital Signs/I&O 06/15/21 06/15/21 11:53 16:33 Temp 36.0 Pulse 92 83 Resp 19 16 B/P (MAP) 157/109 (125) 136/104 Pulse Ox 99 96 O2 Delivery Room Air Room Air Blood Pressure Mean: 125 EKG : EKG Time: 13:35 Comment Sinus rhythm, 91 bpm, QRS duration 95 MS, QTc 437 MS Departure Communication (PCP) Patient presents ED with flulike symptoms. He states he tested negative for Covid and influenza this past week. Refused second swab here in the ED. Patient vital signs stable. Went to his primary care physician and was sent to the ED for further work-up for the dizziness and chest pain. Dizziness appears to be worse when laying down or head movement. Patient had chest tightness yesterday. No known history of coronary artery disease. He reports cardiac catheterization several years ago. Patient EKG normal sinus rhythm. No evidence of A. fib, a flutter, ST wave depression or elevation. Initial troponin negative. Serial troponin negative. Lab work was otherwise unremarkable. Chest ray negative for pneumonia. Urinalysis negative for infection. Was given meclizine with improvement dizziness. Patient with a steady gait here in the ED. Was given IV fluids. Concerning for viral syndrome. Does have family cardiac history. Nonspecific chest pain. He reports similar pain in the past. No exacerbating pain with eating. He has no abdominal tenderness on palpation. Normal lipase, liver enzymes, white blood count. Recommend outpatient cardiac follow-up. Recommend hydration. Provided work note for patient. If worsening symptoms he will need to return back to ED for further evaluation. Patient had no chest pain during his stay here in the ED. Dizziness improved. Impression Primary Impression: Chest pain Additional Impressions: Dizziness Viral syndrome Disposition: HOME, SELF-CARE Condition: Stable Departure-Patient Inst. Decision time for Depature: 16:20 Referrals: [facility] [place] Primary Care Physician Patient Instructions: Chest Pain Scripts Meclizine HCl (Meclizine HCl) 25 Mg Tablet 25 MG PO QID PRN for DIZZINESS, #14 TAB Prov: JOSE LICEA 06/15/21 Work/School Note: Family Work Note, Work Release Form Date Seen in the Emergency Department: Jun 15, 2021 Return to Work: Jun 20, 2021 Restrictions: No Restrictions OJSE LICEA Jun 15, 2021 12:17
[2021-06-15 12:44] LABS: BASOPHILS # (AUTO) 0.1 10^3/uL (0.0-0.1); BASOPHILS % (AUTO) 1 % (0-10); EOSINOPHILS # (AUTO) 1.1 10^3/uL (0.0-0.3); EOSINOPHILS % (AUTO) 12 % (0-10); HEMATOCRIT 43 % (40-54); HEMOGLOBIN 13.9 g/dL (13.3-17.7); LYMPHOCYTES # (AUTO) 1.8 10^3/uL (1.0-4.0); LYMPHOCYTES % (AUTO) 20 % (12-44); MEAN CORPUSCULAR HEMOGLOBIN 29 pg (25-34); MEAN CORPUSCULAR HGB CONC 33 g/dL (32-36); MEAN CORPUSCULAR VOLUME 90 fL (80-99); MEAN PLATELET VOLUME 9.7 fL (9.0-12.2); MONOCYTES # (AUTO) 0.7 10^3/uL (0.0-1.0); MONOCYTES % (AUTO) 7 % (0-12); NEUTROPHILS # (AUTO) 5.3 10^3/uL (1.8-7.8); NEUTROPHILS % (AUTO) 60 % (42-75); PLATELET COUNT 312 10^3/uL (130-400); WHITE BLOOD COUNT 8.9 10^3/uL (4.3-11.0)
--- NOTE | 2021-06-15 12:52 | Diagnostic Imaging Report ---
INDICATION: Chest pain. Portable chest 12:39 PM Heart size and pulmonary vascularity are normal. Lungs are clear. There are no effusions or pneumothoraces. IMPRESSION: Negative chest. Dictated by: Dictated on workstation # [id number]
[2021-06-15 12:53] LABS: BILIRUBIN,URINE NEGATIVE (NEGATIVE); CLARITY,URINE CLEAR; COLOR,URINE YELLOW; GLUCOSE, URINE (UA) NEGATIVE (NEGATIVE); KETONES,URINE NEGATIVE (NEGATIVE); LEUKOCYTE ESTERASE ,URINE NEGATIVE (NEGATIVE); NITRITE,URINE NEGATIVE (NEGATIVE); PROTEIN,URINE NEGATIVE (NEGATIVE)
[2021-06-15 12:58] LABS: ALBUMIN 4.1 GM/DL (3.2-4.5)
[2021-06-15 12:59] LABS: CHLORIDE 102 MMOL/L (98-107); POTASSIUM 3.8 MMOL/L (3.6-5.0); SODIUM 136 MMOL/L (135-145)
[2021-06-15 13:00] LABS: AMORPHOUS SEDIMENT,UR RARE AMOR URATES /LPF; BACTERIA,URINE NEGATIVE /HPF; WBC,URINE RARE /HPF
[2021-06-15 13:00] LABS: CALCIUM 9.6 MG/DL (8.5-10.1)
[2021-06-15 13:01] LABS: GLUCOSE 86 MG/DL (70-105)
[2021-06-15 13:02] LABS: CARBON DIOXIDE 27 MMOL/L (21-32)
[2021-06-15 13:03] LABS: BILIRUBIN,TOTAL 0.3 MG/DL (0.1-1.0)
[2021-06-15 13:05] LABS: ALKALINE PHOSPHATASE 92 U/L (40-136); CREATININE SERUM 0.92 MG/DL (0.60-1.30); GFR ESTIMATED 91
[2021-06-15 13:06] LABS: BUN/CREATININE RATIO 16
[2021-06-15 13:08] LABS: ALANINE AMINOTRANSFERASE 23 U/L (0-55); LIPASE 33 U/L (8-78)
[2021-06-15 13:15] LABS: CREATINE KINASE MB 2.2 NG/ML (<6.6)
[2021-06-15] MEDS ORDERED: MECL-149 PO (16:21)
[2021-06-15 16:33] VITALS: BP 136/104
== END 2021-06-15 16:33 | disposition home or self-care (01) ==
LOC: EDUNIT# 11:31 → ER 11:33
DX: R07.9 Chest pain, unspecified (principal); R42 Dizziness and giddiness; B34.9 Viral infection, unspecified; G47.30 Sleep apnea, unspecified; J44.9 Chronic obstructive pulmonary disease, unspecified; I10 Essential (primary) hypertension; E03.9 Hypothyroidism, unspecified; Z79.890 Hormone replacement therapy
CPT/HCPCS: 36415; 71045; 80053; 81000; 82553; 83690; 83874; 83880; 84484; 85025; 86141; 93005

== ENCOUNTER 2021-06-27 10:28 | Emergency (ER) | payer SELFPAY ==
[~2021-06-27] VITALS: Ht 175 cm; Wt 107.0 kg
[~2021-06-27 10:28] MED LIST changes: +MECL-149 PO
--- NOTE | 2021-06-27 11:04 | ED Cardiac General ---
History of Present Illness General Chief Complaint: Cardiac/General Problems Stated Complaint: COPD,HTN Nursing Triage Note: pt presents to ed via pov from home with complaints of hypertension, tachycardia, and copd issues. pt states he has had issues with high bp and was supposed to be put on bp medication by his pcp but it hasnt been done yet. pt states he was at work today and they checked his bp and it was elevated so he was referred to the ER. pt denies any cp. Source: patient Exam Limitations: no limitations (GOLD AGUAYO APRN) History of Present Illness Date Seen by Provider: Jun 27, 2021 Time Seen by Provider: 10:53 Initial Comments This is a well-appearing 41-year-old male who presented to the ER via POV with complaints of high blood pressure and elevated heart rate. Also notes that he has a history of COPD and states that earlier this week he noted that his oxygen dropped down to 86% via his home SPO2 probe. He put on 2 L of oxygen of his father's and states it brought his oxygen back up. States this was an isolated event and he has not required oxygen since. Has not been having any issues with his oxygen lately, but is concerned he may be coming down with an infection. States that he saw his primary care provider a couple weeks ago and was prescribed atenolol, but when he went to pick it up from the pharmacy there was no prescription. At this time he denies fever, chills, shortness of breath, c hest pain, nausea, vomiting, abdominal pain. (GOLD AGUAYO AREA DEVELOPMENT CONSULTANT) Allergies and Home Medications Allergies Coded Allergies: No Known Drug Allergies (Unverified , 05/04/11) Patient Home Medication List Home Medication List Reviewed: Yes (GOLD AGUAYO APRN) Albuterol Sulfate (Albuterol Sulfate) 2.5 Mg/3 Ml Vial.neb, 2.5 MG IH Q4H PRN for WHEEZING Prescribed by: KEIRA PENA on 07/27/17 1448 Albuterol Sulfate (Albuterol Sulfate) 2.5 Mg/3 Ml Vial.neb, 2.5 MG INH Q4H PRN for WHEEZING Prescribed by: KEIRA PENA on 12/27/18 1736 Albuterol Sulfate (Albuterol Sulfate) 2.5 Mg/3 Ml Vial.neb, 2.5 MG INH Q4H PRN for WHEEZING Prescribed by: KEIRA PENA on 11/06/20 1735 Amoxicillin/Potassium Clav (Augmentin 875-125 Tablet) 1 Each Tablet, 1 EACH PO BID Prescribed by: KEIRA PENA on 06/30/21 1511 Azithromycin (Zithromax) 250 Mg Tablet, 250 MG PO UD Prescribed by: KEIRA PENA on 04/02/18 2241 Azithromycin (Azithromycin) 250 Mg Tablet, 250 MG PO UD Prescribed by: GOLD AGUAYO on 06/27/21 1416 Cefdinir (Cefdinir) 300 Mg Capsule, 300 MG PO BID Prescribed by: NÉSTOR ESPINOZA on 01/09/21 2341 Cefuroxime Axetil (Cefuroxime) 250 Mg Tablet, 250 MG PO BID Prescribed by: KEIRA PENA on 04/05/192005 Doxycycline Monohydrate (Doxycycline Monohydrate) 100 Mg Capsule, 100 MG PO BID Prescribed by: MIKAEL FRIEND on 04/13/21 1636 Hydrocodone/Acetaminophen (Hydrocodone-Acetamin 5-325 mg) 1 Each Tablet, 1 TAB PO Q4H PRN for PAIN-MODERATE (5-7) Prescribed by: KEIRA PENA on 03/02/21 1904 Ipratropium/Albuterol Sulfate (Iprat-Albut 0.5-3(2.5) mg/3 ml) 3 Ml Ampul.neb, 3 ML IH Q4H PRN for SHORTNESS OF BREATH Prescribed by: MIKAEL FRIEND on 04/13/21 1636 Levofloxacin (Levofloxacin) 500 Mg Tablet, 500 MG PO DAILY Prescribed by: MIKE CHIN on 05/13/20 1215 Levofloxacin (Levofloxacin) 500 Mg Tablet, 500 MG PO DAILY Prescribed by: KEIRA PENA on 01/20/21 2128 Levothyroxine Sodium (Levothyroxine 50 Mcg Tab) 50 Mcg Tablet, 50 MCG PO DAILY, (Reported) Entered as Reported by: THADDEUS STAHL on 11/12/12 1129 Meclizine HCl (Meclizine HCl) 25 Mg Tablet, 25 MG PO QID PRN for DIZZINESS Prescribed by: MIKAEL FRIEND on 06/15/21 1621 Metoprolol Succinate (Metoprolol Succinate) 25 Mg Tab.er.24h, 25 MG PO DAILY Prescribed by: GOLD AGUAYO on 06/27/21 1416 Ondansetron (Ondansetron Odt) 4 Mg Tab.rapdis, 4 MG PO Q6H PRN for NAUSEA/VOMITING Prescribed by: EDWIN PETER on 08/16/18 1435 Ondansetron (Ondansetron Odt) 8 Mg Tab.rapdis, 8 MG PO Q4H PRN for NAUSEA/VOMITING Prescribed by: NÉSTOR ESPINOZA on 01/09/21 2341 Ondansetron (Ondansetron Odt) 8 Mg Tab.rapdis, 8 MG PO Q6H PRN for NAUSEA/VOMITING Prescribed by: KEIRA PENA on 06/30/21 1511 Pramoxine HCl (Proctofoam) 15 Gm Foam, 1 APPLIC TP QID Prescribed by: EARNESTINE WILKERSON on 06/03/17 2315 Prednisone (Prednisone) 20 Mg Tab, 40 MG PO DAILY Prescribed by: KEIRA PENA on 07/27/17 1448 Prednisone (Prednisone) 5 Mg Tablet, 5 MG PO UD Prescribed by: KEIRA PENA on 04/02/18 2241 Prednisone (Prednisone) 20 Mg Tab, 40 MG PO DAILY Prescribed by: EDWIN PETER on 07/06/18 0225 Prednisone (Prednisone) 20 Mg Tab, 40 MG PO DAILY Prescribed by: EDWIN PETER on 08/16/18 1435 Prednisone (Prednisone) 20 Mg Tab, 40 MG PO DAILY Prescribed by: KEIRA PENA on 12/27/18 173 Prednisone (Prednisone) 20 Mg Tab, 40 MG PO DAILY Prescribed by: KEIRA PENA on 04/05/192005 Prednisone (Prednisone) 20 Mg Tab, 40 MG PO DAILY Prescribed by: KEIRA PENA on 11/06/20 173 Prednisone (Prednisone) 20 Mg Tab, 40 MG PO DAILY Prescribed by: KEIRA PENA on 01/20/212127 Prednisone (Prednisone) 50 Mg Tab, 50 MG PO DAILY Prescribed by: MIKAEL FRIEND on 04/13/21 1636 Prednisone (Prednisone) 10 Mg Tab.ds.pk, 10 MG PO DAILY Prescribed by: KEIRA PENA on 06/30/21 1336 [Brio inhaler] , (Reported) Entered as Reported by: SHARYN MEJIA on 06/03/17 2224 Review of Systems Review of Systems Constitutional: see HPI EENTM: No Symptoms Reported Respiratory: See HPI Cardiovascular: See HPI Gastrointestinal: No Symptoms Reported Genitourinary: No Symptoms Reported Musculoskeletal: no symptoms reported Skin: no symptoms reported Psychiatric/Neurological: No Symptoms Reported Endocrine: No Symptoms Reported Hematologic/Lymphatic: No Symptoms Reported (GOLD AGUAYO APRN) All Other Systems Reviewed Negative Unless Noted: Yes (GOLD AGUAYO APRN) Past Cegxuis-Ewlyyr-Nkuokm Hx Patient Social History Tobacco Use?: No Smoking Status: Never a Smoker Substance use?: No Alcohol Use?: No Pt feels they are or have been: No (GOLD AGUAYO APRN) Immunizations Up To Date Tetanus Booster (TDap): Less than 5yrs PED Vaccines UTD: Yes First/Initial COVID19 Vaccinat: Jan COVID19 Vaccination Elian: Feb COVID19 Vaccination Date: 04/04 COVID19 Vaccine [employer] Officer: [employer] (GOLD AGUAYO APRN) Seasonal Allergies Seasonal Allergies: No (GOLD AGUAYO APRN) Past Medical History Surgery/Hospitalization HX: COPD, hypothyroid Surgeries: Yes (HEART CATH 2011) Cardiac Respiratory: Yes Sleep Apnea, COPD Currently Using CPAP: Yes Currently Using BIPAP: No Cardiac: Yes Hypertension Neurological: No Reproductive Disorders: No Genitourinary: No Gastrointestinal: No Musculoskeletal: No Endocrine: Yes Hypothyroidsim HEENT: No Cancer: No Psychosocial: Yes Anxiety Integumentary: No Blood Disorders: No (GOLD AGUAYO APRN) Family Medical History No Pertinent Family Hx (GOLD AGUAYO APRN) Physical Exam Vital Signs Vital Signs - First Documented 06/27/21 10:44 Temp 35.5 Pulse 91 Resp 20 B/P (MAP) 148/82 (104) Pulse Ox 98 (EARNESTINE LEIVA MD) Vital Signs Capillary Refill : Less Than 3 Seconds (GOLD AGUAYO APRN) Height, Weight, BMI Height: 5'9.00" Weight: 210lbs. 0oz. 95.113046zb; 34.00 BMI Method:Stated General Appearance: No Apparent Distress, WD/WN HEENT: PERRL/EOMI, Normal ENT Inspection, Pharynx Normal, Moist Mucous Membranes Neck: Full Range of Motion, Normal Inspection Respiratory: Lungs Clear, Normal Breath Sounds Cardiovascular: Regular Rate, Rhythm, No Murmur Gastrointestinal: Normal Bowel Sounds, Non Tender, Soft Neurologic/Psychiatric: Alert, Oriented x3, No Motor/Sensory Deficits, Normal Mood/Affect Skin: Normal Color, Cool (GOLD AGUAYO APRN) Progress/Results/Core Measures Results/Orders Lab Results Laboratory Tests Test 06/27/21 13:05 Range/Units White Blood Count 6.9 4.3-11.0 10^3/uL Red Blood Count 4.89 4.30-5.52 10^6/uL Hemoglobin 14.2 13.3-17.7 g/dL Hematocrit 44 40-54 % Mean Corpuscular Volume 89 80-99 fL Mean Corpuscular Hemoglobin 29 25-34 pg Mean Corpuscular Hemoglobin Concent 33 32-36 g/dL Red Cell Distribution Width 12.4 10.0-14.5 % Platelet Count 177 130-400 10^3/uL Mean Platelet Volume 10.3 9.0-12.2 fL Immature Granulocyte % (Auto) 0 % Neutrophils (%) (Auto) 56 42-75 % Lymphocytes (%) (Auto) 25 12-44 % Monocytes (%) (Auto) 8 0-12 % Eosinophils (%) (Auto) 11 H 0-10 % Basophils (%) (Auto) 1 0-10 % Neutrophils # (Auto) 3.8 1.8-7.8 10^3/uL Lymphocytes # (Auto) 1.7 1.0-4.0 10^3/uL Monocytes # (Auto) 0.6 0.0-1.0 10^3/uL Eosinophils # (Auto) 0.7 H 0.0-0.3 10^3/uL Basophils # (Auto) 0.1 0.0-0.1 10^3/uL Immature Granulocyte # (Auto) 0.0 0.0-0.1 10^3/uL Percent Immature Platelet Fraction 2.4 0.0-7.6 % Sodium Level 137 135-145 MMOL/L Potassium Level 3.7 3.6-5.0 MMOL/L Chloride Level 104 98-107 MMOL/L Carbon Dioxide Level 22 21-32 MMOL/L Anion Gap 11 5-14 MMOL/L Blood Urea Nitrogen 10 7-18 MG/DL Creatinine 0.85 0.60-1.30 MG/DL Estimat Glomerular Filtration Rate 112 BUN/Creatinine Ratio 12 Glucose Level 83 70-105 MG/DL Calcium Level 9.0 8.5-10.1 MG/DL Corrected Calcium 9.0 8.5-10.1 MG/DL Total Bilirubin 0.5 0.1-1.0 MG/DL Aspartate Amino Transf (AST/SGOT) 15 5-34 U/L Alanine Aminotransferase (ALT/SGPT) 18 0-55 U/L Alkaline Phosphatase 104 40-136 U/L Total Protein 7.3 6.4-8.2 GM/DL Albumin 4.0 3.2-4.5 GM/DL (EARNESTINE LEIVA MD) Vital Signs/I&O 06/27/21 06/27/21 10:44 14:41 Temp 35.5 35.5 Pulse 91 77 Resp 20 20 B/P (MAP) 148/82 (104) 138/99 Pulse Ox 98 98 (EARNESTINE LEIVA MD) Blood Pressure Mean: 104 Progress Progress Note : Progress Note Patient examined and in no acute distress. No CP. Orders placed for basic work- up, EKG, and CXR. He is noted to be hypertensive in the emergency department. We will give him Lopressor 25 mg and monitor. If he tolerates we will plan to provided rx. Labs reviewed and are unremarkable. Chest x-ray shows concerns for early CAP. As he is having pulmonary symptoms we will go ahead and treat with antibiotics. Encouraged him to call his primary care provider for close follow-up. (GOLD AGUAYO APRN) Initial ECG Impression Date: Jun 27, 2021 Initial ECG Impression Time: 11:55 Initial ECG Rate: 70 Initial ECG Rhythm: Normal Sinus Initial ECG Intervals: Normal Initial ECG Impression: Normal Initial ECG Comparisson: Unchanged (GOLD AGUAYO APRN) Diagnostic Imaging Diagonstic Imaging: Xray Plain Films/CT/US/NM/MRI: chest Comments [facility], [place] NAME: EARNESTINE ALMAGUER George [facility] REC#: [id number] PT STATUS: DEP ER : 1980 PHYSICIAN: GOLD AGUAYO APRN ADMIT DATE: 06/27/21/ER Signed Date of Exam:06/27/21 CHEST PA/LAT (2 VIEW) CLINICAL INDICATION: Patient has history of hypertension, tachycardia, COPD. Patient has high blood pressure. Patient has wheezing. EXAM: Chest x-ray PA and lateral views. COMPARISON: Chest x-ray dated 06/15/2021. FINDINGS: Lungs/pleura: There appears to be interval development of very subtle airspace opacities in the periphery of the right midlung field. Otherwise, lungs are clear. There is no pneumothorax. There is no pleural effusion. Mediastinum: Unremarkable. Pulmonary vasculature: Unremarkable. Heart: Unremarkable. Bones/extrathoracic soft tissue: Unremarkable. IMPRESSION: There is questionable interval development of very subtle airspace opacities in the periphery of the right midlung field. Otherwise remainder of this exam is unremarkable. Dictated by: Dictated on workstation # [id number] Dict: 06/27/21 1134 Trans: 06/27/211711 CV [id number] Interpreted by: AV CARPENTER MD Electronically signed by: AV CARPENTER MD 06/27/211711 (GOLD AGUAYO APRN) Departure Impression Primary Impression: Hypertension Additional Impression: Community acquired pneumonia Disposition: HOME, SELF-CARE Condition: Improved Departure-Patient Inst. Decision time for Depature: 14:13 (GOLD AGUAYO APRN) Referrals: [facility] [place] Primary Care Physician JOSE LUIS HAYDEN APRN (Family) Primary Care Physician Patient Instructions: Pneumonia, Adult (DC), High Blood Pressure ED Add. Discharge Instructions: Plan: 1. Follow up with your doctor next week. We will start you on Metoprolol 25mg XR daily. 2. Take Azithromycin daily as directed and complete full course. 3. Drink plenty of fluids to stay hydrated. 4. Return to ER for any new, concerning, or worsening symptoms. All discharge instructions reviewed with patient and/or family. Voiced understanding. Scripts Metoprolol Succinate (Metoprolol Succinate) 25 Mg Tab.er.24h 25 MG PO DAILY for 30 Days, #30 TAB 0 Refills Prov: GOLD AGUAYO APRN 06/27/21 Azithromycin (Azithromycin) 250 Mg Tablet 250 MG PO UD, #6 TAB 0 Refills TAKE 2 TABLETS ON DAY ONE THEN TAKE 1 TABLET DAILY FOR FOUR MORE DAYS Prov: GOLD AGUAYO AREA DEVELOPMENT CONSULTANT 06/27/21 Work/School Note: Work Release Form Date Seen in the Emergency Department: Jun 27, 2021 Return to Work: Jun 29, 2021 Restrictions: No Restrictions ATTENDING PHYSICIAN NOTE: I was physically present as attending physician in the emergency department during the care of this patient, but I was not directly involved in the decision making or delivery of care for this patient. (EARNESTINE LEIVA MD) GOLD AGUAYO AREA DEVELOPMENT CONSULTANT Jun 27, 2021 11:04 EARNESTINE LEIVA MD Jul 03, 2021 06:41
[2021-06-27] MEDS ORDERED: meTOprolol TARTRATE 25 MG (LOPRESSOR) TABLET ONE (11:10)
[2021-06-27] MEDS ORDERED: meTOprolol TARTRATE 25 MG (LOPRESSOR) TABLET PO ONE (11:15)
--- NOTE | 2021-06-27 11:38 | Diagnostic Imaging Report ---
CLINICAL INDICATION: Patient has history of hypertension, tachycardia, COPD. Patient has high blood pressure. Patient has wheezing. EXAM: Chest x-ray PA and lateral views. COMPARISON: Chest x-ray dated 06/15/2021. FINDINGS: Lungs/pleura: There appears to be interval development of very subtle airspace opacities in the periphery of the right midlung field. Otherwise, lungs are clear. There is no pneumothorax. There is no pleural effusion. Mediastinum: Unremarkable. Pulmonary vasculature: Unremarkable. Heart: Unremarkable. Bones/extrathoracic soft tissue: Unremarkable. IMPRESSION: There is questionable interval development of very subtle airspace opacities in the periphery of the right midlung field. Otherwise remainder of this exam is unremarkable. Dictated by: Dictated on workstation # [id number]
[2021-06-27 13:12] LABS: BASOPHILS # (AUTO) 0.1 10^3/uL (0.0-0.1); BASOPHILS % (AUTO) 1 % (0-10); EOSINOPHILS # (AUTO) 0.7 10^3/uL (0.0-0.3); EOSINOPHILS % (AUTO) 11 % (0-10); HEMATOCRIT 44 % (40-54); HEMOGLOBIN 14.2 g/dL (13.3-17.7); LYMPHOCYTES # (AUTO) 1.7 10^3/uL (1.0-4.0); LYMPHOCYTES % (AUTO) 25 % (12-44); MEAN CORPUSCULAR HEMOGLOBIN 29 pg (25-34); MEAN CORPUSCULAR HGB CONC 33 g/dL (32-36); MEAN CORPUSCULAR VOLUME 89 fL (80-99); MEAN PLATELET VOLUME 10.3 fL (9.0-12.2); MONOCYTES # (AUTO) 0.6 10^3/uL (0.0-1.0); MONOCYTES % (AUTO) 8 % (0-12); NEUTROPHILS # (AUTO) 3.8 10^3/uL (1.8-7.8); NEUTROPHILS % (AUTO) 56 % (42-75); PLATELET COUNT 177 10^3/uL (130-400); WHITE BLOOD COUNT 6.9 10^3/uL (4.3-11.0)
[2021-06-27 13:22] LABS: POTASSIUM 3.7 MMOL/L (3.6-5.0)
[2021-06-27 13:24] LABS: TOTAL PROTEIN 7.3 GM/DL (6.4-8.2)
[2021-06-27 13:26] LABS: BILIRUBIN,TOTAL 0.5 MG/DL (0.1-1.0)
[2021-06-27 13:28] LABS: CREATININE SERUM 0.85 MG/DL (0.60-1.30)
[2021-06-27] MEDS ORDERED: AZIT250T12 PO (14:16)
[2021-06-27] MEDS ORDERED: MTP25TSR PO (14:16)
[2021-06-27 14:41] VITALS: BP 138/99
== END 2021-06-27 14:41 | disposition home or self-care (01) ==
LOC: EDUNIT# 10:28 → ER 10:30
DX: I10 Essential (primary) hypertension (principal); J18.9 Pneumonia, unspecified organism; J44.0 Chronic obstructive pulmonary disease with (acute) lower respiratory infection; E03.9 Hypothyroidism, unspecified; G47.30 Sleep apnea, unspecified; Z99.89 Dependence on other enabling machines and devices; Z79.899 Other long term (current) drug therapy; Z79.890 Hormone replacement therapy
CPT/HCPCS: 36415; 71046; 80053; 85025; 93005

== ENCOUNTER 2021-06-30 10:53 | Emergency (ER) | payer SELFPAY ==
[~2021-06-30 10:53] MED LIST changes: +AZIT250T12 PO; +MTP25TSR PO
--- NOTE | 2021-06-30 11:53 | ED General ---
General Chief Complaint: COVID19 Suspect/Confirmed Stated Complaint: N/V,COUGH,FEVER,KELLY,LOSS OF TASTE,CP, SEEN 06/27 Nursing Triage Note: PT AMB TO ER WITH C/O VOMITTING FOR 1 DAY, WORSENING SOB AND LOSS OF TASTE. PT TESTED NEG FOR COVID EARLIER THIS WEEK Source of Information: Patient Exam Limitations: No Limitations History of Present Illness Date Seen by Provider: Jun 30, 2021 Time Seen by Provider: 11:53 Initial Comments To ER with reports of nausea vomiting cough fever headache. He was seen here on 06/27/2021 diagnosed with pneumonia. He is on antibiotic, not currently on steroids. He has a nebulizer at home which he has been using but does not notice much improvement. Timing/Duration: 2-3 Days Severity: Moderate Associated Systoms: Cough Allergies and Home Medications Allergies Coded Allergies: No Known Drug Allergies (Unverified , 05/04/11) Patient Home Medication List Home Medication List Reviewed: Yes Albuterol Sulfate (Albuterol Sulfate) 2.5 Mg/3 Ml Vial.neb, 2.5 MG IH Q4H PRN for WHEEZING Prescribed by: KEIRA PENA on 07/27/17 1448 Albuterol Sulfate (Albuterol Sulfate) 2.5 Mg/3 Ml Vial.neb, 2.5 MG INH Q4H PRN for WHEEZING Prescribed by: KEIRA PENA on 12/27/18 1736 Albuterol Sulfate (Albuterol Sulfate) 2.5 Mg/3 Ml Vial.neb, 2.5 MG INH Q4H PRN for WHEEZING Prescribed by: KEIRA PENA on 11/06/20 1735 Amoxicillin/Potassium Clav (Augmentin 875-125 Tablet) 1 Each Tablet, 1 EACH PO BID Prescribed by: KEIRA PENA on 06/30/21 1511 Azithromycin (Zithromax) 250 Mg Tablet, 250 MG PO UD Prescribed by: KEIRA PENA on 04/02/18 2241 Azithromycin (Azithromycin) 250 Mg Tablet, 250 MG PO UD Prescribed by: GOLD AGUAYO on 06/27/21 1416 Cefdinir (Cefdinir) 300 Mg Capsule, 300 MG PO BID Prescribed by: NÉSTOR ESPINOZA on 01/09/21 2341 Cefuroxime Axetil (Cefuroxime) 250 Mg Tablet, 250 MG PO BID Prescribed by: KEIRA PENA on 04/05/192005 Doxycycline Monohydrate (Doxycycline Monohydrate) 100 Mg Capsule, 100 MG PO BID Prescribed by: MIKAEL FRIEND on 04/13/21 1636 Hydrocodone/Acetaminophen (Hydrocodone-Acetamin 5-325 mg) 1 Each Tablet, 1 TAB PO Q4H PRN for PAIN-MODERATE (5-7) Prescribed by: KEIRA PENA on 03/02/21 1904 Ipratropium/Albuterol Sulfate (Iprat-Albut 0.5-3(2.5) mg/3 ml) 3 Ml Ampul.neb, 3 ML IH Q4H PRN for SHORTNESS OF BREATH Prescribed by: MIKAEL FRIEND on 04/13/21 1636 Levofloxacin (Levofloxacin) 500 Mg Tablet, 500 MG PO DAILY Prescribed by: MIKE CHIN on 05/13/20 1215 Levofloxacin (Levofloxacin) 500 Mg Tablet, 500 MG PO DAILY Prescribed by: KEIRA PENA on 01/20/218 Levothyroxine Sodium (Levothyroxine 50 Mcg Tab) 50 Mcg Tablet, 50 MCG PO DAILY, (Reported) Entered as Reported by: THADDEUS STAHL on 11/12/12 1129 Meclizine HCl (Meclizine HCl) 25 Mg Tablet, 25 MG PO QID PRN for DIZZINESS Prescribed by: MIKAEL FRIEND on 06/15/21 1621 Metoprolol Succinate (Metoprolol Succinate) 25 Mg Tab.er.24h, 25 MG PO DAILY Prescribed by: GOLD AGUAYO on 06/27/21 1416 Ondansetron (Ondansetron Odt) 4 Mg Tab.rapdis, 4 MG PO Q6H PRN for NAUSEA/VOMITING Prescribed by: EDWIN PETER on 08/16/18 1435 Ondansetron (Ondansetron Odt) 8 Mg Tab.rapdis, 8 MG PO Q4H PRN for NAUSEA/ VOMITING Prescribed by: NÉSTOR ESPINOZA on 01/09/21 2341 Ondansetron (Ondansetron Odt) 8 Mg Tab.rapdis, 8 MG PO Q6H PRN for NAUSEA/VOMITING Prescribed by: KEIRA PENA on 06/30/21 1511 Pramoxine HCl (Proctofoam) 15 Gm Foam, 1 APPLIC TP QID Prescribed by: EARNESTINE WILKERSON on 06/03/17 2315 Prednisone (Prednisone) 20 Mg Tab, 40 MG PO DAILY Prescribed by: KEIRA PENA on 07/27/17 1448 Prednisone (Prednisone) 5 Mg Tablet, 5 MG PO UD Prescribed by: KEIRA PENA on 04/02/18 2241 Prednisone (Prednisone) 20 Mg Tab, 40 MG PO DAILY Prescribed by: EDWIN PETER on 07/06/18 0225 Prednisone (Prednisone) 20 Mg Tab, 40 MG PO DAILY Prescribed by: EDWIN PETER on 08/16/18 1435 Prednisone (Prednisone) 20 Mg Tab, 40 MG PO DAILY Prescribed by: KEIRA PENA on 12/27/18 173 Prednisone (Prednisone) 20 Mg Tab, 40 MG PO DAILY Prescribed by: KEIRA PENA on 04/05/192005 Prednisone (Prednisone) 20 Mg Tab, 40 MG PO DAILY Prescribed by: KEIRA PENA on 11/06/20 173 Prednisone (Prednisone) 20 Mg Tab, 40 MG PO DAILY Prescribed by: KEIRA PENA on 01/20/212127 Prednisone (Prednisone) 50 Mg Tab, 50 MG PO DAILY Prescribed by: MIKAEL FRIEND on 04/13/21 1636 Prednisone (Prednisone) 10 Mg Tab.ds.pk, 10 MG PO DAILY Prescribed by: KEIRA PENA on 06/30/21 1336 [Brio inhaler] , (Reported) Entered as Reported by: SHARYN MEJIA on 06/03/17 2224 Review of Systems Review of Systems Constitutional: see HPI EENTM: see HPI Respiratory: see HPI, cough Cardiovascular: no symptoms reported Genitourinary: no symptoms reported Musculoskeletal: no symptoms reported Skin: no symptoms reported Psychiatric/Neurological: No Symptoms Reported Hematologic/Lymphatic: No Symptoms Reported Immunological/Allergic: no symptoms reported Past Dmanzho-Wibwss-Lwguxi Hx Patient Social History Tobacco Use?: No Substance use?: No Alcohol Use?: No Pt feels they are or have been: No Immunizations Up To Date Tetanus Booster (TDap): Less than 5yrs PED Vaccines UTD: Yes Influenza Vaccine Up-to-Date: Yes; Up-to-Date First/Initial COVID19 Vaccinat: JAN Second COVID19 Vaccination Elian: Feb COVID19 Vaccination Date: 04/04 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 Seasonal Allergies Seasonal Allergies: No Past Medical History Surgery/Hospitalization HX: COPD, hypothyroid Surgeries: Yes (HEART CATH 2011) Cardiac Respiratory: Yes Sleep Apnea, COPD Currently Using CPAP: Yes Currently Using BIPAP: No Cardiac: Yes Hypertension Neurological: No Reproductive Disorders: No Genitourinary: No Gastrointestinal: No Musculoskeletal: No Endocrine: Yes Hypothyroidsim HEENT: No Cancer: No Psychosocial: Yes Anxiety Integumentary: No Blood Disorders: No Family Medical History No Pertinent Family Hx Physical Exam Vital Signs Vital Signs - First Documented 06/30/21 11:23 Temp 36.7 Pulse 106 Resp 20 B/P (MAP) 148/117 (127) Pulse Ox 97 O2 Delivery Room Air Capillary Refill : Height, Weight, BMI Height: 5'9.00" Weight: 210lbs. 0oz. [id number]; 34.00 BMI Method:Stated General Appearance: No Apparent Distress, WD/WN, Other (No distress, 97% on room air.) Eyes: Bilateral Eye Normal Inspection, Bilateral Eye PERRL, Bilateral Eye EOMI Neck: Full Range of Motion, Normal Inspection Respiratory: No Accessory Muscle Use, No Respiratory Distress, Decreased Breath Sounds, Wheezing Gastrointestinal: Normal Bowel Sounds, Non Tender, Soft Extremity: Normal Capillary Refill, Normal Inspection Neurologic/Psychiatric: Alert, Oriented x3 Skin: Normal Color, Warm/Dry Progress/Results/Core Measures Suspected Sepsis SIRS Temperature: Pulse: 106 Respiratory Rate: 20 Laboratory Tests 06/30/21 12:22: White Blood Count 8.0 Blood Pressure 148 /117 Mean: 127 Laboratory Tests 06/30/21 12:22: Creatinine 1.03, Platelet Count 249 Results/Orders Lab Results Laboratory Tests Test 06/30/21 11:27 06/30/21 12:22 Range/Units Influenza Type A (RT-PCR) Not Detected Not Detecte Influenza Type B (RT-PCR) Not Detected Not Detecte SARS-CoV-2 RNA (RT-PCR) Not Detected Not Detecte White Blood Count 8.0 4.3-11.0 10^3/uL Red Blood Count 5.44 4.30-5.52 10^6/uL Hemoglobin 16.0 13.3-17.7 g/dL Hematocrit 49 40-54 % Mean Corpuscular Volume 90 80-99 fL Mean Corpuscular Hemoglobin 29 25-34 pg Mean Corpuscular Hemoglobin Concent 33 32-36 g/dL Red Cell Distribution Width 12.2 10.0-14.5 % Platelet Count 249 130-400 10^3/uL Mean Platelet Volume 10.0 9.0-12.2 fL Immature Granulocyte % (Auto) 0 % Neutrophils (%) (Auto) 75 42-75 % Lymphocytes (%) (Auto) 13 12-44 % Monocytes (%) (Auto) 10 0-12 % Eosinophils (%) (Auto) 1 0-10 % Basophils (%) (Auto) 1 0-10 % Neutrophils # (Auto) 6.1 1.8-7.8 10^3/uL Lymphocytes # (Auto) 1.0 1.0-4.0 10^3/uL Monocytes # (Auto) 0.8 0.0-1.0 10^3/uL Eosinophils # (Auto) 0.1 0.0-0.3 10^3/uL Basophils # (Auto) 0.1 0.0-0.1 10^3/uL Immature Granulocyte # (Auto) 0.0 0.0-0.1 10^3/uL D-Dimer 1.06 H 0.00-0.49 UG/ML Sodium Level 134 L 135-145 MMOL/L Potassium Level 4.3 3.6-5.0 MMOL/L Chloride Level 100 98-107 MMOL/L Carbon Dioxide Level 23 21-32 MMOL/L Anion Gap 11 5-14 MMOL/L Blood Urea Nitrogen 12 7-18 MG/DL Creatinine 1.03 0.60-1.30 MG/DL Estimat Glomerular Filtration Rate 94 BUN/Creatinine Ratio 12 Glucose Level 101 70-105 MG/DL Calcium Level 10.0 8.5-10.1 MG/DL Procalcitonin 0.09 <0.10 NG/ML My Orders Orders - KEIRA PENA [employer] Covid 19 Inhouse Test (06/30/21 11:50) Influenza A And B By Pcr (06/30/21 11:50) Chest 1 View, Ap/Pa Only (06/30/21 11:53) Cbc With Automated Diff (06/30/21 11:53) Basic Metabolic Panel (06/30/21 11:53) Fibrin Degradation Products (06/30/21 11:53) Ed Iv/Invasive Line Start (06/30/21 12:22) Methylprednisolone Sod Succ (Solu-Medrol (06/30/21 12:30) Albuterol/Ipra Inhalation Soln (Duoneb I (06/30/21 12:30) Albuterol Pre-Mix Nebs (Rt) (Proventil (06/30/21 12:30) Svn Small Volume Nebulizer (06/30/21 12:22) Svn Small Volume Nebulizer (06/30/21 12:22) Procalcitonin (Pct) (06/30/21 12:22) Ct Angio Chest W (06/30/21 13:11) Iohexol Injection (Omnipaque 350 Mg/Ml 1 (06/30/21 13:30) Received Contrast (Hold Metformin- Contr (06/30/21 13:30) Ns (Ivpb) (Sodium Chloride 0.9% Ivpb Bag (06/30/21 13:30) Medications Given in ED Current Medications Medications Dose Ordered Sig/Anatoly Route Start Time Stop Time Status Last Admin Dose Admin Albuterol Sulfate 2.5 mg ONCE ONCE INH 06/30/21 12:30 06/30/21 12:31 DC 06/30/21 13:25 2.5 MG Albuterol/ Ipratropium 3 ml ONCE ONCE INH 06/30/21 12:30 06/30/21 12:31 DC 06/30/21 13:25 3 ML Iohexol 100 ml ONCE ONCE IV 06/30/21 13:30 06/30/21 13:31 DC 06/30/21 14:44 83 ML Methylprednisolone Sodium Succinate 125 mg ONCE ONCE IVP 06/30/21 12:30 06/30/21 12:31 DC 06/30/21 13:56 125 MG Sodium Chloride 100 ml ONCE ONCE IV 06/30/21 13:30 06/30/21 13:31 DC 06/30/21 14:44 80 ML Vital Signs/I&O 06/30/21 06/30/21 06/30/21 11:23 13:26 13:29 Temp 36.7 Pulse 106 Resp 20 B/P (MAP) 148/117 (127) Pulse Ox 97 97 O2 Delivery Room Air Room Air Room Air Capillary Refill : Blood Pressure Mean: 127 Diagnostic Imaging Diagonstic Imaging: CT Comments NAME: EARNESTINE ALMAGUER MED REC#: [id number] PT STATUS: REG ER : 1980 PHYSICIAN: KEIRA PENA APRN ADMIT DATE: 06/30/21/ER Draft Date of Exam:06/30/21 CT ANGIO CHEST W Clinical indication: Patient with vomiting x 1 day, worsening shortness of breath and loss of taste. Negative Covid test. Exam: CT angiogram of the chest performed with 83 cc Omnipaque 350 IV contrast. Coronal and oblique MIP images of the vasculature were created to better evaluate anatomy. Auto Exposure Controls were utilized during the CT exam to meet ALARA standards for radiation dose reduction. Comparison: Chest x-ray dated 06/12/2021. CT angiogram of the chest dated 01/20/2021. Findings: There is interval progression of nodular areas of consolidation and patchy groundglass opacification involving the right upper lobe. There is interval near resolution of previously seen patchy infiltrates involving the right lower lobe with very minimal amount remaining. There is no evidence of infiltrate involving the left lung. There is no pleural effusion or pneumothorax. Visualized portion of the thyroid gland is unremarkable. There is no significant hilar or mediastinal lymphadenopathy. There is no axillary lymphadenopathy. There is no thoracic or aortic aneurysm or dissection. There is dense contrast bolus within the superior vena cava which limits evaluation of the mediastinal structures and pulmonary arteries, especially the right upper lobe pulmonary artery segment. The right upper lobe pulmonary artery segment is limited in evaluation. There is no evidence of pulmonary embolism, as visualized. Visualized upper abdominal structures are unremarkable. There are small spurs involving the thoracic spine. impression: 1: There is limited visualization of the right upper lobe pulmonary arteries. There is no evidence pulmonary embolism, as visualized. 2: There is interval progression of patchy infiltrates involving the right upper lobe suggestive for pneumonia. 3: There are very subtle infiltrates involving the right lower lobe which has significantly improved in the interim. Dictated on workstation # [id number] Dict: 06/30/21 1456 Trans: 06/30/21 1703 [facility] [id number] Interpreted by: AV CARPENTER MD Electronically signed by: Departure Communication (Admissions) 1141-his oxygen is 97% during his ER visit, no respiratory distress. He was wheezy but that improved after a couple breathing treatments. He has 2 more days of azithromycin left. I will add prednisone, Zofran for nausea control and Augmentin for additional antibiotic coverage. Impression Primary Impression: RUL Pneumonia Additional Impression: COPD exacerbation Disposition: 01 HOME, SELF-CARE Condition: Stable Departure-Patient Inst. Decision time for Depature: 13:34 Referrals: [facility] (PCP) Primary Care Physician JOSE LUIS HAYDEN APRN (Family) Primary Care Physician Patient Instructions: Exacerbation of COPD Add. Discharge Instructions: 1. Take the antibiotics as directed, continue these. Take the steroids as d irected. Return to ER for any worsening Scripts Amoxicillin/Potassium Clav (Augmentin 875-125 Tablet) 1 Each Tablet 1 EACH PO BID, #14 TAB 0 Refills Prov: KEIRA PENA APRN 06/30/21 Ondansetron (Ondansetron Odt) 8 Mg Tab.rapdis 8 MG PO Q6H PRN for NAUSEA/VOMITING, #10 TAB Prov: KEIRA PENA APRN 06/30/21 Prednisone (Prednisone) 10 Mg Tab.ds.pk 10 MG PO DAILY, #21 EA Take 6 tabs(60mg)daily,decrease by 1 tab(10MG)daily. Prov: KEIRA PENA APRN 06/30/21 Work/School Note: Work Release Form Date Seen in the Emergency Department: Jun 30, 2021 Return to Work: Jul 02, 2021 KEIRA PENA APRN Jun 30, 2021 11:53
[2021-06-30 12:27] LABS: BASOPHILS # (AUTO) 0.1 10^3/uL (0.0-0.1); BASOPHILS % (AUTO) 1 % (0-10); EOSINOPHILS # (AUTO) 0.1 10^3/uL (0.0-0.3); EOSINOPHILS % (AUTO) 1 % (0-10); HEMATOCRIT 49 % (40-54); LYMPHOCYTES % (AUTO) 13 % (12-44); MEAN CORPUSCULAR HEMOGLOBIN 29 pg (25-34); MEAN CORPUSCULAR HGB CONC 33 g/dL (32-36); MEAN CORPUSCULAR VOLUME 90 fL (80-99); MONOCYTES # (AUTO) 0.8 10^3/uL (0.0-1.0); MONOCYTES % (AUTO) 10 % (0-12); NEUTROPHILS # (AUTO) 6.1 10^3/uL (1.8-7.8); NEUTROPHILS % (AUTO) 75 % (42-75); PLATELET COUNT 249 10^3/uL (130-400)
[2021-06-30] MEDS ORDERED: RT-ALBUTEROL SULF 2.5 MG/3 ML PRE-MIX VIAL INH ONE (12:30)
[2021-06-30] MEDS ORDERED: methylPREDNISolone 125 MG (Solu-MEDROL) VIAL IVP ONE (12:30)
[2021-06-30] MEDS ORDERED: RT-ALBUTEROL/IPRATROPIUM 3 ML (DUONEB) VIAL INH ONE (12:30)
[2021-06-30 12:50] LABS: POTASSIUM 4.3 MMOL/L (3.6-5.0)
[2021-06-30 12:55] LABS: CREATININE SERUM 1.03 MG/DL (0.60-1.30)
[2021-06-30] MEDS ORDERED: HOLD METFORMIN - RECEIVED CONTRAST 20 ML VIAL IV SCH (13:30)
[2021-06-30] MEDS ORDERED: NS 100 ML (IVPB) BAG IV ONE (13:30)
[2021-06-30] MEDS ORDERED: IOHEXOL 350 MG/ML 100 ML (OMNIPAQUE 350) VIAL IV ONE (13:30)
[2021-06-30] MEDS ORDERED: PRED10TA22 PO (13:36)
--- NOTE | 2021-06-30 13:39 | Diagnostic Imaging Report ---
Clinical indications: Patient complains of vomiting for one day. Patient with worsening shortness of breath, loss of taste. Patient tested negative for COVID earlier this week. EXAM: Portable chest x-ray upright view. COMPARISON: Chest x-ray dated 06/15/2021 FINDINGS: Lungs/pleura: Lungs are clear. There is no pneumothorax. There is no pleural effusion. Mediastinum: Unremarkable. Pulmonary vasculature: Unremarkable. Heart: Unremarkable. Bones/extrathoracic soft tissue: Unremarkable. IMPRESSION: There is no radiographic evidence of acute cardiopulmonary process. Dictated by: Dictated on workstation # [id number]
[2021-06-30] MEDS ORDERED: AMOX-358 PO (15:11)
[2021-06-30] MEDS ORDERED: ONDA8TAB13 PO (15:11)
--- NOTE | 2021-06-30 15:14 | Diagnostic Imaging Report ---
Clinical indication: Patient with vomiting x 1 day, worsening shortness of breath and loss of taste. Negative Covid test. Exam: CT angiogram of the chest performed with 83 cc Omnipaque 350 IV contrast. Coronal and oblique MIP images of the vasculature were created to better evaluate anatomy. Auto Exposure Controls were utilized during the CT exam to meet ALARA standards for radiation dose reduction. Comparison: Chest x-ray dated 06/12/2021. CT angiogram of the chest dated 01/20/2021. Findings: There is interval progression of nodular areas of consolidation and patchy groundglass opacification involving the right upper lobe. There is interval near resolution of previously seen patchy infiltrates involving the right lower lobe with very minimal amount remaining. There is no evidence of infiltrate involving the left lung. There is no pleural effusion or pneumothorax. Visualized portion of the thyroid gland is unremarkable. There is no significant hilar or mediastinal lymphadenopathy. There is no axillary lymphadenopathy. There is no thoracic or aortic aneurysm or dissection. There is dense contrast bolus within the superior vena cava which limits evaluation of the mediastinal structures and pulmonary arteries, especially the right upper lobe pulmonary artery segment. The right upper lobe pulmonary artery segment is limited in evaluation. There is no evidence of pulmonary embolism, as visualized. Visualized upper abdominal structures are unremarkable. There are small spurs involving the thoracic spine. Impression: 1: There is limited visualization of the right upper lobe pulmonary arteries. There is no evidence pulmonary embolism, as visualized. 2: There is interval progression of patchy infiltrates involving the right upper lobe suggestive for pneumonia. 3: There are very subtle infiltrates involving the right lower lobe which has significantly improved in the interim. Dictated by: Dictated on workstation # [id number]
[2021-06-30 15:27] VITALS: BP 140/94
== END 2021-06-30 15:28 | disposition home or self-care (01) ==
LOC: EDUNIT# 10:53 → ER 10:55
DX: J44.1 Chronic obstructive pulmonary disease with (acute) exacerbation (principal); J18.1 Lobar pneumonia, unspecified organism; R11.2 Nausea with vomiting, unspecified; I10 Essential (primary) hypertension; E03.9 Hypothyroidism, unspecified; G47.30 Sleep apnea, unspecified; Z20.822 Contact with and (suspected) exposure to COVID-19; Z99.89 Dependence on other enabling machines and devices; Z79.890 Hormone replacement therapy; Z79.899 Other long term (current) drug therapy
CPT/HCPCS: 36415; 71045; 71275; 80048; 84145; 85025; 85379; 87636; 94640

== ENCOUNTER 2021-07-25 09:52 | Emergency (ER) | payer SELFPAY ==
[~2021-07-25] VITALS: Ht 175 cm; Wt 107.0 kg
[2021-07-25] MEDS ORDERED: NS IV 1000 ML 1,000 ML IV SCH (10:15)
[2021-07-25 10:22] LABS: BASOPHILS # (AUTO) 0.1 10^3/uL (0.0-0.1); BASOPHILS % (AUTO) 1 % (0-10); EOSINOPHILS # (AUTO) 0.7 10^3/uL (0.0-0.3); EOSINOPHILS % (AUTO) 18 % (0-10); HEMATOCRIT 45 % (40-54); HEMOGLOBIN 13.9 g/dL (13.3-17.7); LYMPHOCYTES # (AUTO) 0.9 10^3/uL (1.0-4.0); LYMPHOCYTES % (AUTO) 23 % (12-44); MEAN CORPUSCULAR HEMOGLOBIN 29 pg (25-34); MEAN CORPUSCULAR HGB CONC 31 g/dL (32-36); MEAN CORPUSCULAR VOLUME 91 fL (80-99); MEAN PLATELET VOLUME 9.6 fL (9.0-12.2); MONOCYTES # (AUTO) 0.6 10^3/uL (0.0-1.0); MONOCYTES % (AUTO) 14 % (0-12); NEUTROPHILS # (AUTO) 1.7 10^3/uL (1.8-7.8); NEUTROPHILS % (AUTO) 43 % (42-75); PLATELET COUNT 218 10^3/uL (130-400); WHITE BLOOD COUNT 4.1 10^3/uL (4.3-11.0)
[2021-07-25 10:37] LABS: FIBRIN DEGRADATION PRODUCTS 0.4 UG/ML (0.00-0.49); PROTHROMBIN TIME PATIENT 13.2 SEC (12.2-14.7)
[2021-07-25 10:47] LABS: ALANINE AMINOTRANSFERASE 27 U/L (0-55); ALBUMIN 4.1 GM/DL (3.2-4.5); ALKALINE PHOSPHATASE 99 U/L (40-136); BILIRUBIN,TOTAL 0.5 MG/DL (0.1-1.0); BUN/CREATININE RATIO 14; CALCIUM 9.2 MG/DL (8.5-10.1); CARBON DIOXIDE 21 MMOL/L (21-32); CHLORIDE 104 MMOL/L (98-107); CREATINE KINASE 148 U/L (30-200); CREATININE SERUM 0.81 MG/DL (0.60-1.30); GFR ESTIMATED 114; GLUCOSE 95 MG/DL (70-105); MAGNESIUM 1.9 MG/DL (1.6-2.4); POTASSIUM 3.7 MMOL/L (3.6-5.0); SODIUM 138 MMOL/L (135-145); TOTAL PROTEIN 8.1 GM/DL (6.4-8.2)
[2021-07-25 10:54] LABS: EOSINOPHILS % (MANUAL) 20 %; LYMPHOCYTES % (MANUAL) 26 %; MONOCYTES % (MANUAL) 12 %; NEUTROPHILS % (MANUAL) 42 %; RBC MORPH NORMAL
[2021-07-25 11:02] LABS: ERYTHROCYTE SEDIMENTATION RATE 30 MM/HR (0-15)
[2021-07-25] MEDS ORDERED: IOHEXOL 350 MG/ML 100 ML (OMNIPAQUE 350) VIAL IV ONE (11:30)
[2021-07-25] MEDS ORDERED: HOLD METFORMIN - RECEIVED CONTRAST 20 ML VIAL IV SCH (11:30)
[2021-07-25] MEDS ORDERED: RT-ALBUTEROL/IPRATROPIUM 3 ML (DUONEB) VIAL INH ONE (11:30)
[2021-07-25] MEDS ORDERED: NS 100 ML (IVPB) BAG IV ONE (11:30)
[2021-07-25] MEDS ORDERED: methylPREDNISolone 125 MG (Solu-MEDROL) VIAL IVP ONE (11:30)
[2021-07-25] MEDS ORDERED: RT-BUDESONIDE NEBS 0.5 MG/2ML (PULMICORT) AMP INH ONE (11:30)
--- NOTE | 2021-07-25 11:56 | Diagnostic Imaging Report ---
PROCEDURE: CT angiography of the chest with contrast. TECHNIQUE: Multiple contiguous axial images were obtained through the chest after uneventful bolus administration of intravenous contrast. 3D reconstructed CTA MIP acquisitions were also performed. Auto Exposure Controls were utilized during the CT exam to meet ALARA standards for radiation dose reduction. INDICATION: PE suspected, high prob. The previous CT chest exam performed on 06/30/2021 failed to show any sign of pulmonary embolus, although the pulmonary arteries to the right upper lobe were not well-visualized. On this exam, there is still no definite defect within the pulmonary arteries to indicate a pulmonary embolus. The aorta is not abnormally dilated and there is no sign of dissection. The heart size is within normal limits and stable when compared to the prior exam. The previous study also identified patchy infiltrates involving the right upper lobe and right lower lobe. On this exam both the right upper lobe and right lower lobe do seem better aerated. There is only a very small amount of residual pneumonia/atelectasis still present. The left lung remains generally clear. There is still no sign of a pleural effusion. There is no mediastinal or hilar adenopathy. The thyroid gland was partially obscured by streak artifact. The images through the upper abdomen failed to show any sign of an acute abnormality. The bone windows show no evidence for fracture or for destructive lesion. IMPRESSION: 1. The appearance of the chest has improved as the patchy alveolar/interstitial infiltrates involving the right lung seen previously have diminished. There is only a small amount of residual pneumonia/atelectasis still present. 2. There is no acute abnormality identified otherwise. In particular, there is no sign of a pulmonary embolus or of a aortic dissection. Dictated by: Dictated on workstation # [id number]
--- NOTE | 2021-07-25 12:06 | Diagnostic Imaging Report ---
PATIENT HISTORY: Cough, dyspnea. TECHNIQUE: Single frontal view of the chest. COMPARISON: 06/30/2021. FINDINGS: The lung volumes are normal. No focal consolidation is seen. No large pleural effusion or pneumothorax is seen. The cardiomediastinal silhouette is normal in size and contour. No acute osseous abnormality is seen. IMPRESSION: No acute pulmonary abnormality seen. Dictated by: Dictated on workstation # [id number]
[2021-07-25] MEDS ORDERED: AMOX-358 PO (12:09)
[2021-07-25] MEDS ORDERED: PRED10TA22 PO (12:09)
--- NOTE | 2021-07-25 12:09 | ED General ---
General Chief Complaint: COVID19 Suspect/Confirmed Stated Complaint: SOB,COUGH,CONGESTION Nursing Triage Note: PT CO OF SOA, C/P 01/18, CONGESTION, COUGH, HAS BEEN SICK SINCE SUNDAY WITH THIS EPISODE OF ILLNESS. WAS SEEN IN [place] ON LAST SUNDAY FOR C/P AND WAS CLEARED. PT HAS HAD COVID IN PAST AND IS VACCINATED. PT WENT TO LAB AND HAD LABWORK DONE BEFORE COMING TO ED. ALSO DECIDED TO WATCH SUPERBOWL INSTEAD OF COMING TO ED FOR C/P Allergies and Home Medications Allergies Coded Allergies: No Known Drug Allergies (Unverified , 05/04/11) Patient Home Medication List Albuterol Sulfate (Albuterol Sulfate) 2.5 Mg/3 Ml Vial.neb, 2.5 MG IH Q4H PRN for WHEEZING Prescribed by: KEIRA PENA on 07/27/17 1448 Albuterol Sulfate (Albuterol Sulfate) 2.5 Mg/3 Ml Vial.neb, 2.5 MG INH Q4H PRN for WHEEZING Prescribed by: KEIRA PENA on 12/27/18 1736 Albuterol Sulfate (Albuterol Sulfate) 2.5 Mg/3 Ml Vial.neb, 2.5 MG INH Q4H PRN for WHEEZING Prescribed by: KEIRA PENA on 11/06/20 1735 Amoxicillin/Potassium Clav (Augmentin 875-125 Tablet) 1 Each Tablet, 1 EACH PO BID Prescribed by: KEIRA PENA on 06/30/21 1511 Azithromycin (Zithromax) 250 Mg Tablet, 250 MG PO UD Prescribed by: KEIRA PENA on 04/02/18 2241 Azithromycin (Azithromycin) 250 Mg Tablet, 250 MG PO UD Prescribed by: GOLD AGUAYO on 06/27/21 1416 Cefdinir (Cefdinir) 300 Mg Capsule, 300 MG PO BID Prescribed by: NÉSTOR ESPINOZA on 01/09/21 2341 Cefuroxime Axetil (Cefuroxime) 250 Mg Tablet, 250 MG PO BID Prescribed by: KEIRA PENA on 04/05/192005 Doxycycline Monohydrate (Doxycycline Monohydrate) 100 Mg Capsule, 100 MG PO BID Prescribed by: MIKAEL FRIEND on 04/13/21 1636 Hydrocodone/Acetaminophen (Hydrocodone-Acetamin 5-325 mg) 1 Each Tablet, 1 TAB PO Q4H PRN for PAIN-MODERATE (5-7) Prescribed by: KEIRA PENA on 03/02/21 1904 Ipratropium/Albuterol Sulfate (Iprat-Albut 0.5-3(2.5) mg/3 ml) 3 Ml Ampul.neb, 3 ML IH Q4H PRN for SHORTNESS OF BREATH Prescribed by: MIKAEL FRIEND on 04/13/21 1636 Levofloxacin (Levofloxacin) 500 Mg Tablet, 500 MG PO DAILY Prescribed by: MIKE CHIN on 05/13/20 1215 Levofloxacin (Levofloxacin) 500 Mg Tablet, 500 MG PO DAILY Prescribed by: KEIRA PENA on 01/20/21 2128 Levothyroxine Sodium (Levothyroxine 50 Mcg Tab) 50 Mcg Tablet, 50 MCG PO DAILY, (Reported) Entered as Reported by: THADDEUS STAHL on 11/12/12 1129 Meclizine HCl (Meclizine HCl) 25 Mg Tablet, 25 MG PO QID PRN for DIZZINESS Prescribed by: MIKAEL FRIEND on 06/15/21 1621 Metoprolol Succinate (Metoprolol Succinate) 25 Mg Tab.er.24h, 25 MG PO DAILY Prescribed by: GOLD AGUAYO on 06/27/21 1416 Ondansetron (Ondansetron Odt) 4 Mg Tab.rapdis, 4 MG PO Q6H PRN for NAUSEA/VOMITING Prescribed by: EDWIN PETER on 08/16/18 1435 Ondansetron (Ondansetron Odt) 8 Mg Tab.rapdis, 8 MG PO Q4H PRN for NAUSEA/VOMITING Prescribed by: NÉSTOR ESPINOZA on 01/09/21 2341 Ondansetron (Ondansetron Odt) 8 Mg Tab.rapdis, 8 MG PO Q6H PRN for NAUSEA/VOMITING Prescribed by: KEIRA PENA on 06/30/21 1511 Pramoxine HCl (Proctofoam) 15 Gm Foam, 1 APPLIC TP QID Prescribed by: EARNESTINE WILKERSON on 06/03/17 2315 Prednisone (Prednisone) 20 Mg Tab, 40 MG PO DAILY Prescribed by: KEIAR PENA on 07/27/17 1448 Prednisone (Prednisone) 5 Mg Tablet, 5 MG PO UD Prescribed by: KEIRA PENA on 04/02/18 2241 Prednisone (Prednisone) 20 Mg Tab, 40 MG PO DAILY Prescribed by: EDWIN PETER on 07/06/18 0225 Prednisone (Prednisone) 20 Mg Tab, 40 MG PO DAILY Prescribed by: EDWIN PETER on 08/16/18 143 Prednisone (Prednisone) 20 Mg Tab, 40 MG PO DAILY Prescribed by: KEIRA PENA on 12/27/18 173 Prednisone (Prednisone) 20 Mg Tab, 40 MG PO DAILY Prescribed by: KEIRA PENA on 04/05/192005 Prednisone (Prednisone) 20 Mg Tab, 40 MG PO DAILY Prescribed by: KEIRA PENA on 11/06/20 173 Prednisone (Prednisone) 20 Mg Tab, 40 MG PO DAILY Prescribed by: KEIRA PENA on 01/20/212127 Prednisone (Prednisone) 50 Mg Tab, 50 MG PO DAILY Prescribed by: MIKAEL FRIEND on 04/13/21 163 Prednisone (Prednisone) 10 Mg Tab.ds.pk, 10 MG PO DAILY Prescribed by: KEIRA PENA on 06/30/21 1336 [Brio inhaler] , (Reported) Entered as Reported by: SHARYN MEJIA on 06/03/174 Past Kbdbrcu-Hhywsb-Dlctcc Hx Patient Social History Tobacco Use?: No Substance use?: No Alcohol Use?: No Pt feels they are or have been: No Immunizations Up To Date Tetanus Booster (TDap): Less than 5yrs PED Vaccines UTD: Yes First/Initial COVID19 Vaccinat: JAN 2021 Second COVID19 Vaccination Elian: FEB 2021 Third COVID19 Vaccination Date: 04/04 COVID19 Vaccine Research Assistant: SHIRA Seasonal Allergies Seasonal Allergies: No Past Medical History Surgery/Hospitalization HX: COPD, hypothyroid Surgeries: Yes (HEART CATH 2011) Cardiac Respiratory: Yes Sleep Apnea, COPD Currently Using CPAP: Yes Currently Using BIPAP: No Cardiac: Yes Hypertension Neurological: No Reproductive Disorders: No Genitourinary: No Gastrointestinal: No Musculoskeletal: No Endocrine: Yes Hypothyroidsim HEENT: No Cancer: No Psychosocial: Yes Anxiety Integumentary: No Blood Disorders: No Family Medical History No Pertinent Family Hx Physical Exam Vital Signs Vital Signs - First Documented 07/25/21 07/25/21 09:58 12:00 Temp 35.9 Pulse 104 Resp 18 B/P (MAP) 158/114 (129) Pulse Ox 96 O2 Delivery Room Air Capillary Refill : Less Than 3 Seconds Height, Weight, BMI Height: 5'9.00" Weight: 210lbs. 0oz. 95.946219ss; 34.00 BMI Method:Stated Focused Exam Lactate Level 07/25/21 10:35: Lactic Acid Level 1.00 Lactic Acid Level Laboratory Tests Test 07/25/21 10:35 Lactic Acid Level 1.00 MMOL/L (0.50-2.00) Progress/Results/Core Measures Suspected Sepsis SIRS Temperature: Pulse: 104 Respiratory Rate: 18 Laboratory Tests 07/25/21 10:11: White Blood Count 4.1L Blood Pressure 158 /114 Mean: 129 07/25/21 10:35: Lactic Acid Level 1.00 Laboratory Tests 07/25/21 10:11: Creatinine 0.81, INR Comment 1.0, Platelet Count 218, Total Bilirubin 0.5 Results/Orders Lab Results Laboratory Tests Test 07/25/21 10:04 07/25/21 10:11 07/25/21 10:35 Range/Units Influenza Type A (RT-PCR) Not Detected Not Detecte Influenza Type B (RT-PCR) Not Detected Not Detecte SARS-CoV-2 RNA (RT-PCR) Not Detected Not Detecte White Blood Count 4.1 L 4.3-11.0 10^3/uL Red Blood Count 4.88 4.30-5.52 10^6/uL Hemoglobin 13.9 13.3-17.7 g/dL Hematocrit 45 40-54 % Mean Corpuscular Volume 91 80-99 fL Mean Corpuscular Hemoglobin 29 25-34 pg Mean Corpuscular Hemoglobin Concent 31 L 32-36 g/dL Red Cell Distribution Width 13.0 10.0-14.5 % Platelet Count 218 130-400 10^3/uL Mean Platelet Volume 9.6 9.0-12.2 fL Immature Granulocyte % (Auto) 0 % Neutrophils (%) (Auto) 43 42-75 % Lymphocytes (%) (Auto) 23 12-44 % Monocytes (%) (Auto) 14 H 0-12 % Eosinophils (%) (Auto) 18 H 0-10 % Basophils (%) (Auto) 1 0-10 % Neutrophils # (Auto) 1.7 L 1.8-7.8 10^3/uL Lymphocytes # (Auto) 0.9 L 1.0-4.0 10^3/uL Monocytes # (Auto) 0.6 0.0-1.0 10^3/uL Eosinophils # (Auto) 0.7 H 0.0-0.3 10^3/uL Basophils # (Auto) 0.1 0.0-0.1 10^3/uL Immature Granulocyte # (Auto) 0.0 0.0-0.1 10^3/uL Neutrophils % (Manual) 42 % Lymphocytes % (Manual) 26 % Monocytes % (Manual) 12 % Eosinophils % (Manual) 20 % Blood Morphology Comment NORMAL Erythrocyte Sedimentation Rate 30 H 0-15 MM/HR Prothrombin Time 13.2 12.2-14.7 SEC INR Comment 1.0 0.8-1.4 Activated Partial Thromboplast Time 32 24-35 SEC D-Dimer 0.40 0.00-0.49 UG/ML Sodium Level 138 135-145 MMOL/L Potassium Level 3.7 3.6-5.0 MMOL/L Chloride Level 104 98-107 MMOL/L Carbon Dioxide Level 21 21-32 MMOL/L Anion Gap 13 5-14 MMOL/L Blood Urea Nitrogen 11 7-18 MG/DL Creatinine 0.81 0.60-1.30 MG/DL Estimat Glomerular Filtration Rate 114 BUN/Creatinine Ratio 14 Glucose Level 95 70-105 MG/DL Calcium Level 9.2 8.5-10.1 MG/DL Corrected Calcium 9.1 8.5-10.1 MG/DL Magnesium Level 1.9 1.6-2.4 MG/DL Total Bilirubin 0.5 0.1-1.0 MG/DL Aspartate Amino Transf (AST/SGOT) 20 5-34 U/L Alanine Aminotransferase (ALT/SGPT) 27 0-55 U/L Alkaline Phosphatase 99 40-136 U/L Total Creatine Kinase 148 30-200 U/L Creatine Kinase MB 9.0 *H <6.6 NG/ML Myoglobin 50.9 10.0-92.0 NG/ML Troponin I < 0.028 <0.028 NG/ML C-Reactive Protein High Sensitivity 2.12 H 0.00-0.50 MG/DL B-Type Natriuretic Peptide < 10.0 <100.0 PG/ML Total Protein 8.1 6.4-8.2 GM/DL Albumin 4.1 3.2-4.5 GM/DL Procalcitonin 0.05 <0.10 NG/ML Lactic Acid Level 1.00 0.50-2.00 MMOL/L My Orders Orders - NÉSTOR ESPINOZA DO Chest 1 View, Ap/Pa Only (07/25/21 10:03) Covid 19 Inhouse Test (07/25/21 10:03) Influenza A And B By Pcr (07/25/21 10:03) Isolation Central Supply Req (07/25/21 10:03) Ed Iv/Invasive Line Start (07/25/21 10:11) Ekg Tracing (07/25/21 10:11) Monitor-Rhythm Ecg Trace Only (07/25/21 10:11) Bnp Gabby (07/25/21 10:11) Cbc With Automated Diff (07/25/21 10:11) Comprehensive Metabolic Panel (07/25/21 10:11) Creatine Kinase (07/25/21 10:11) Creatine Kinase Mb (07/25/21 10:11) Hs C Reactive Protein (07/25/21 10:11) Lactic Acid Analyzer (07/25/21 10:11) Magnesium (07/25/21 10:11) Protime With Inr (07/25/21 10:11) Partial Thromboplastin Time (07/25/21 10:11) Blood Culture (07/25/21 10:11) Erythrocyte Sedimentation Rate (07/25/21 10:11) Myoglobin Serum (07/25/21 10:11) Troponin I Gabby (07/25/21 10:11) Fibrin Degradation Products (07/25/21 10:11) Procalcitonin (Pct) (07/25/21 10:11) Urinalysis (07/25/21 10:11) Urine Culture (07/25/21 10:11) Ed Iv/Invasive Line Start (07/25/21 10:11) Vital Signs Adult Sepsis Patie Q15M (07/25/21 10:11) O2 (07/25/21 10:11) Remove Rings In Anticipation O (07/25/21 10:11) Ed Iv/Invasive Line Start (07/25/21 10:11) Ns Iv 1000 Ml (Sodium Chloride 0.9%) (07/25/21 10:15) Manual Differential (07/25/21 10:11) Ct Angio Chest W (07/25/21 11:13) Methylprednisolone Sod Succ (Solu-Medrol (07/25/21 11:30) Albuterol/Ipra Inhalation Soln (Duoneb I (07/25/21 11:30) Budesonide Inhalation Solution (Pulmicor (07/25/21 11:30) Svn Small Volume Nebulizer (07/25/21 11:18) Svn Small Volume Nebulizer (07/25/21 11:18) Iohexol Injection (Omnipaque 350 Mg/Ml 1 (07/25/21 11:30) Received Contrast (Hold Metformin- Contr (07/25/21 11:30) Ns (Ivpb) (Sodium Chloride 0.9% Ivpb Bag (07/25/21 11:30) Medications Given in ED Current Medications Medications Dose Ordered Sig/Anatoly Route Start Time Stop Time Status Last Admin Dose Admin Albuterol/ Ipratropium 3 ml ONCE ONCE INH 07/25/21 11:30 07/25/21 11:31 DC 07/25/21 11:59 3 ML Budesonide 0.5 mg ONCE ONCE INH 07/25/21 11:30 07/25/21 11:31 DC 07/25/21 11:59 0.5 MG Vital Signs/I&O 07/25/21 07/25/21 09:58 12:00 Temp 35.9 Pulse 104 Resp 18 B/P (MAP) 158/114 (129) Pulse Ox 96 97 O2 Delivery Room Air Capillary Refill : Less Than 3 Seconds Blood Pressure Mean: 129 Departure Impression Primary Impression: RESOLVING PNEUMONIA Additional Impression: COPD (chronic obstructive pulmonary disease) Disposition: 01 HOME, SELF-CARE Condition: Stable Departure-Patient Inst. Decision time for Depature: 12:06 Referrals: [facility] (PCP) Primary Care Physician JOSE LUIS HAYDEN APRN (Family) Primary Care Physician Patient Instructions: Chronic Obstructive Pulmonary Disease (COPD), Including Emphysema, Community-Acquired Pneumonia, Adult (DC) Add. Discharge Instructions: USE YOUR INHALER AND NEBULIZER PRESCRIBED TYLENOL AND MOTRIN NEEDED FOR PAIN OR FEVER MUCINEX DM FOR COUGH AND CONGESTION FOLLOW UP WITH YOUR [employer] PUMP OPERATOR AND TREE SURGEON SCHEDULED All discharge instructions reviewed with patient and/or family. Voiced understanding. Scripts Prednisone (Prednisone) 10 Mg Tab.ds.pk 10 MG PO DAILY, #21 EA Take 6 tabs(60mg)daily,decrease by 1 tab(10MG)daily. Prov: NÉSTOR ESPINOZA DO 07/25/21 Amoxicillin/Potassium Clav (Augmentin 875-125 Tablet) 1 Each Tablet 1 EACH PO BID for 10 Days, #20 TAB Prov: NÉSTOR ESPINOZA DO 07/25/21 NÉSTOR ESPINOZA DO Jul 25, 2021 12:09
[2021-07-25 12:32] VITALS: BP 143/98
== END 2021-07-25 12:37 | disposition home or self-care (01) ==
LOC: EDUNIT# 09:52 → ER 09:54
DX: J44.9 Chronic obstructive pulmonary disease, unspecified (principal); I10 Essential (primary) hypertension; E03.9 Hypothyroidism, unspecified; G47.30 Sleep apnea, unspecified; Z20.822 Contact with and (suspected) exposure to COVID-19; Z79.890 Hormone replacement therapy; Z79.899 Other long term (current) drug therapy
CPT/HCPCS: 36415; 71045; 71275; 80053; 82550; 82553; 83605; 83735; 83874; 83880; 84145; 84484; 85007; 85027; 85379; 85610; 85652; 85730; 86141; 87040; 87636; 93005; 93041; 94640

== ENCOUNTER → 2021-07-25 | Outpatient (CLI) | payer SELFPAY ==
[~2021-07-25] MED LIST changes: +AMOX-358 PO; +PRED10TA22 PO
[2021-07-25 10:13] LABS: ALBUMIN 4.1 GM/DL (3.2-4.5); POTASSIUM 3.7 MMOL/L (3.6-5.0)
[2021-07-25 10:14] LABS: CALCIUM 9.2 MG/DL (8.5-10.1)
[2021-07-25 10:15] LABS: TOTAL PROTEIN 7.9 GM/DL (6.4-8.2)
[2021-07-25 10:17] LABS: BILIRUBIN,TOTAL 0.5 MG/DL (0.1-1.0)
[2021-07-25 10:19] LABS: CREATININE SERUM 0.83 MG/DL (0.60-1.30)
== END ==
LOC: LAB 09:26
PROVIDERS: ATTEND Internal Medicine Cardiovascular Disease
DX: E78.2 Mixed hyperlipidemia (principal)
CPT/HCPCS: 36415; 80053; 80061

== ENCOUNTER → 2021-08-01 | Outpatient (CLI) | payer SELFPAY ==
--- NOTE | 2021-08-01 13:54 | Diagnostic Imaging Report ---
PROCEDURE: CT chest without contrast. TECHNIQUE: Multiple contiguous axial images were obtained through the chest without the use of intravenous contrast. Auto Exposure Controls were utilized during the CT exam to meet ALARA standards for radiation dose reduction. INDICATION: Asthma. COMPARISON: 07/25/2021 and 03/10/2020. FINDINGS: No significant adenopathy within the chest. No aneurysmal dilatation of the thoracic aorta. The heart is within normal limits in size. No significant pericardial effusion. No pleural effusion. The trachea is patent. No pneumothorax. Developing tree-in-bud nodularity as well as patchy groundglass and reticular opacities are noted, particularly within the superior segment of the left lower lobe and within the right upper lobe. The minimally visualized upper abdomen is unremarkable. Mild scattered osseous degenerative changes without acute osseous abnormality. IMPRESSION: Developing and worsening bilateral tree-in-bud opacities and groundglass opacities, suggesting underlying small airway or small vessel infectious or inflammatory process. Given the appearance, Covid 19 could be considered. Dictated by: Dictated on workstation # [id number]
== END ==
LOC: CARD 11:00
PROVIDERS: ATTEND Internal Medicine Critical Care Medicine
DX: J45.50 Severe persistent asthma, uncomplicated (principal); J98.8 Other specified respiratory disorders
CPT/HCPCS: 71250; 93306

== ENCOUNTER 2021-08-24 14:05 | Observation (INO) | payer SELFPAY ==
[2021-08-24] VITALS (8 sets, daily range): BP systolic 117–139; BP diastolic 78–92
[~2021-08-24] VITALS: Ht 175.3 cm; Wt 110.5 kg
[2021-08-24] MEDS ORDERED: ASPIRIN 81 MG CHEW (CHILDREN'S ASA) PO ONE (14:15)
[2021-08-24] MEDS ORDERED: RT-ALBUTEROL/IPRATROPIUM 3 ML (DUONEB) VIAL INH ONE (14:15)
[2021-08-24] MEDS: NITROGLYCERIN 0.4 MG SL TABS BTL 25'S SL PRN ×2 (14:47→20:54)
--- NOTE | 2021-08-24 14:55 | Diagnostic Imaging Report ---
INDICATIONS: Chest pain, shortness of breath PA and lateral chest obtained at 2:39 p.m. Heart and mediastinal silhouette are normal in appearance. The lungs are clear. There is no pneumothorax or pleural fluid IMPRESSION: Negative chest. Dictated by: Dictated on workstation # [id number]
[2021-08-24 15:00] LABS: BASOPHILS # (AUTO) 0.1 10^3/uL (0.0-0.1); BASOPHILS % (AUTO) 1 % (0-10); EOSINOPHILS # (AUTO) 0.8 10^3/uL (0.0-0.3); EOSINOPHILS % (AUTO) 10 % (0-10); HEMATOCRIT 43 % (40-54); HEMOGLOBIN 13.4 g/dL (13.3-17.7); LYMPHOCYTES # (AUTO) 1.9 10^3/uL (1.0-4.0); LYMPHOCYTES % (AUTO) 23 % (12-44); MEAN CORPUSCULAR HEMOGLOBIN 29 pg (25-34); MEAN CORPUSCULAR HGB CONC 31 g/dL (32-36); MEAN CORPUSCULAR VOLUME 92 fL (80-99); MONOCYTES # (AUTO) 0.6 10^3/uL (0.0-1.0); MONOCYTES % (AUTO) 7 % (0-12); NEUTROPHILS # (AUTO) 4.9 10^3/uL (1.8-7.8); NEUTROPHILS % (AUTO) 60 % (42-75); PLATELET COUNT 260 10^3/uL (130-400); WHITE BLOOD COUNT 8.2 10^3/uL (4.3-11.0)
[2021-08-24 15:07] LABS: INR 0.9 (0.8-1.4); PROTHROMBIN TIME PATIENT 12.4 SEC (12.2-14.7)
[2021-08-24 15:08] LABS: CHLORIDE 101 MMOL/L (98-107); SODIUM 135 MMOL/L (135-145)
[2021-08-24 15:09] LABS: CALCIUM 9.7 MG/DL (8.5-10.1)
[2021-08-24 15:10] LABS: GLUCOSE 83 MG/DL (70-105)
[2021-08-24 15:11] LABS: TOTAL PROTEIN 7.5 GM/DL (6.4-8.2)
[2021-08-24 15:12] LABS: BILIRUBIN,TOTAL 0.3 MG/DL (0.1-1.0); CARBON DIOXIDE 21 MMOL/L (21-32)
[2021-08-24 15:14] LABS: ALKALINE PHOSPHATASE 96 U/L (40-136); CREATININE SERUM 0.83 MG/DL (0.60-1.30); GFR ESTIMATED 113
[2021-08-24 15:15] LABS: BUN/CREATININE RATIO 14
[2021-08-24 15:17] LABS: ALANINE AMINOTRANSFERASE 32 U/L (0-55); MAGNESIUM 1.7 MG/DL (1.6-2.4)
--- NOTE | 2021-08-24 15:37 | ED Chest Pain ---
General Chief Complaint: Chest Pain Stated Complaint: CHEST PAIN Nursing Triage Note: PT AMB TO RM 8 WITH COMPLAINT OF CP TODAY AND YESTERDAY. STATES WENT TO PCP TODAY AND WAS SENT TO ER FOR FURTHER EVALUATION Source: patient, old records Exam Limitations: no limitations History of Present Illness Date Seen by Provider: Aug 24, 2021 Time Seen by Provider: 14:11 Initial Comments This 41-year-old gentleman presents to the emergency room with complaints of severe pain in the left chest that started last night. He has been having intermittent episodes of chest pain for a few months. He was diagnosed with pneumonia in June and had another visit to the ER in July. He underwent a thorough evaluation at that time which also included CT angiogram of the chest and CT abdomen and pelvis. There was some residual evidence of pneumonia on those imaging studies. He had a stress test scheduled with Dr. Cisneros today, but that was canceled and rescheduled due to provider availability. He states his pain is worse with exertion and sometimes a little worse with deep breathing. He reports pain is 9 out of 10 at this time and generally sharp in nature. He reports ibuprofen sometimes dulls his pain. He denies any cough or fever at this time. He reports a strong family history of coronary artery disease at a young age including in his father who had coronary artery disease around age 50. Allergies and Home Medications Allergies Coded Allergies: No Known Drug Allergies (Unverified , 05/04/11) Patient Home Medication List Home Medication List Reviewed: Yes Albuterol Sulfate (Albuterol Sulfate) 2.5 Mg/3 Ml Vial.neb, 2.5 MG IH Q4H PRN for WHEEZING Prescribed by: KEIRA PENA on 07/27/17 1448 Albuterol Sulfate (Albuterol Sulfate) 2.5 Mg/3 Ml Vial.neb, 2.5 MG INH Q4H PRN for WHEEZING Prescribed by: KEIRA PENA on 12/27/18 1736 Albuterol Sulfate (Albuterol Sulfate) 2.5 Mg/3 Ml Vial.neb, 2.5 MG INH Q4H PRN for WHEEZING Prescribed by: KEIRA PENA on 11/06/20 1735 Amoxicillin/Potassium Clav (Augmentin 875-125 Tablet) 1 Each Tablet, 1 EACH PO BID Prescribed by: KEIRA PENA on 06/30/21 1511 Amoxicillin/Potassium Clav (Augmentin 875-125 Tablet) 1 Each Tablet, 1 EACH PO BID Prescribed by: NÉSTOR ESPINOZA on 07/25/21 1209 Azithromycin (Zithromax) 250 Mg Tablet, 250 MG PO UD Prescribed by: KEIRA PENA on 04/02/18 2241 Azithromycin (Azithromycin) 250 Mg Tablet, 250 MG PO UD Prescribed by: GOLD AGUAYO on 06/27/21 1416 Cefdinir (Cefdinir) 300 Mg Capsule, 300 MG PO BID Prescribed by: NÉSTOR ESPINOZA on 01/09/21 2341 Cefuroxime Axetil (Cefuroxime) 250 Mg Tablet, 250 MG PO BID Prescribed by: KEIRA PENA on 04/05/192005 Doxycycline Monohydrate (Doxycycline Monohydrate) 100 Mg Capsule, 100 MG PO BID Prescribed by: MIKAEL FRIEND on 04/13/21 1636 Hydrocodone/Acetaminophen (Hydrocodone-Acetamin 5-325 mg) 1 Each Tablet, 1 TAB PO Q4H PRN for PAIN-MODERATE (5-7) Prescribed by: KEIRA PENA on 03/02/21 1904 Ipratropium/Albuterol Sulfate (Iprat-Albut 0.5-3(2.5) mg/3 ml) 3 Ml Ampul.neb, 3 ML IH Q4H PRN for SHORTNESS OF BREATH Prescribed by: MIKAEL FRIEND on 04/13/21 1636 Levofloxacin (Levofloxacin) 500 Mg Tablet, 500 MG PO DAILY Prescribed by: MIKE CHIN on 05/13/20 1215 Levofloxacin (Levofloxacin) 500 Mg Tablet, 500 MG PO DAILY Prescribed by: KEIRA PENA on 01/20/21 2128 Levothyroxine Sodium (Levothyroxine 50 Mcg Tab) 50 Mcg Tablet, 50 MCG PO DAILY, (Reported) Entered as Reported by: THADDEUS STAHL on 11/12/12 1129 Meclizine HCl (Meclizine HCl) 25 Mg Tablet, 25 MG PO QID PRN for DIZZINESS Prescribed by: MIKAEL FRIEND on 06/15/21 1621 Metoprolol Succinate (Metoprolol Succinate) 25 Mg Tab.er.24h, 25 MG PO DAILY Prescribed by: GOLD AGUAYO on 06/27/21 1416 Ondansetron (Ondansetron Odt) 4 Mg Tab.rapdis, 4 MG PO Q6H PRN for NAUSEA/VOMITING Prescribed by: EDWIN PETER on 08/16/18 1435 Ondansetron (Ondansetron Odt) 8 Mg Tab.rapdis, 8 MG PO Q4H PRN for NAUSEA/VOMITING Prescribed by: NÉSTOR ESPINOZA on 01/09/21 2341 Ondansetron (Ondansetron Odt) 8 Mg Tab.rapdis, 8 MG PO Q6H PRN for NAUSEA/VOMITING Prescribed by: KEIRA PENA on 06/30/21 1511 Pramoxine HCl (Proctofoam) 15 Gm Foam, 1 APPLIC TP QID Prescribed by: EARNESTINE WILKERSON on 06/03/17 2315 Prednisone (Prednisone) 20 Mg Tab, 40 MG PO DAILY Prescribed by: KEIRA PENA on 07/27/17 1448 Prednisone (Prednisone) 5 Mg Tablet, 5 MG PO UD Prescribed by: KEIRA PENA on 04/02/18 224 Prednisone (Prednisone) 20 Mg Tab, 40 MG PO DAILY Prescribed by: EDWIN PETER on 07/06/18 0225 Prednisone (Prednisone) 20 Mg Tab, 40 MG PO DAILY Prescribed by: EDWIN PETER on 08/16/18 1435 Prednisone (Prednisone) 20 Mg Tab, 40 MG PO DAILY Prescribed by: KEIRA PENA on 12/27/18 173 Prednisone (Prednisone) 20 Mg Tab, 40 MG PO DAILY Prescribed by: KEIRA PENA on 04/05/192005 Prednisone (Prednisone) 20 Mg Tab, 40 MG PO DAILY Prescribed by: KEIRA PENA on 11/06/20 173 Prednisone (Prednisone) 20 Mg Tab, 40 MG PO DAILY Prescribed by: KEIRA PENA on 01/20/218 Prednisone (Prednisone) 50 Mg Tab, 50 MG PO DAILY Prescribed by: MIKAEL FRIEND on 04/13/21 1636 Prednisone (Prednisone) 10 Mg Tab.ds.pk, 10 MG PO DAILY Prescribed by: KEIRA PENA on 06/30/21 1336 Prednisone (Prednisone) 10 Mg Tab.ds.pk, 10 MG PO DAILY Prescribed by: NÉSTOR ESPINOZA on 07/25/21 1209 [Brio inhaler] , (Reported) Entered as Reported by: SHARYN MEJIA on 06/03/17 2224 Review of Systems Review of Systems Constitutional: no symptoms reported EENTM: No Symptoms Reported Respiratory: See HPI Cardiovascular: See HPI Gastrointestinal: No Symptoms Reported Genitourinary: No Symptoms Reported Musculoskeletal: no symptoms reported Skin: no symptoms reported Psychiatric/Neurological: No Symptoms Reported Endocrine: No Symptoms Reported Hematologic/Lymphatic: No Symptoms Reported Past Efbsnir-Egrfmo-Hzscfw Hx Patient Social History Tobacco Use?: No Use of E-Cig and/or Vaping dev: No Substance use?: No Alcohol Use?: No Pt feels they are or have been: No Immunizations Up To Date Tetanus Booster (TDap): Less than 5yrs PED Vaccines UTD: Yes First/Initial COVID19 Vaccinat: JAN 2021 Second COVID19 Vaccination Elian: FEB 2021 Third COVID19 Vaccination Date: JAN 2021 Seasonal Allergies Seasonal Allergies: No Past Medical History Surgery/Hospitalization HX: COPD, hypothyroid Surgeries: Yes (HEART CATH 2011) Cardiac Respiratory: Yes Sleep Apnea, COPD Currently Using CPAP: Yes Currently Using BIPAP: No Cardiac: Yes Hypertension Neurological: No Reproductive Disorders: No Genitourinary: No Gastrointestinal: No Musculoskeletal: No Endocrine: Yes Hypothyroidsim HEENT: No Cancer: No Psychosocial: Yes Anxiety Integumentary: No Blood Disorders: No Family Medical History No Pertinent Family Hx Physical Exam Vital Signs Vital Signs - First Documented 08/24/21 14:07 Pulse 90 Resp 16 B/P (MAP) 149/110 (123) Pulse Ox 96 O2 Delivery Room Air Capillary Refill : Less Than 3 Seconds Height, Weight, BMI Height: 5'9.00" Weight: 210lbs. 0oz. 95.092663kd; 36.00 BMI Method:Stated General Appearance: WD/WN, Mild Distress HEENT: PERRL/EOMI, Normal ENT Inspection Neck: Normal Inspection Respiratory: Chest Non Tender, Lungs Clear, Normal Breath Sounds, No Accessory Muscle Use, No Respiratory Distress Cardiovascular: Regular Rate, Rhythm, No Edema, No Murmur Gastrointestinal: Normal Bowel Sounds, Non Tender, Soft Extremity: Normal Inspection, Non Tender, No Pedal Edema Neurologic/Psychiatric: Alert, Oriented x3, No Motor/Sensory Deficits, nurse transitional II- XII Norm as Tested, Other (Mildly anxious) Skin: Normal Color, Warm/Dry Progress/Results/Core Measures Results/Orders Lab Results Laboratory Tests Test 08/24/21 14:48 08/24/21 16:50 Range/Units White Blood Count 8.2 4.3-11.0 10^3/uL Red Blood Count 4.69 4.30-5.52 10^6/uL Hemoglobin 13.4 13.3-17.7 g/dL Hematocrit 43 40-54 % Mean Corpuscular Volume 92 80-99 fL Mean Corpuscular Hemoglobin 29 25-34 pg Mean Corpuscular Hemoglobin Concent 31 L 32-36 g/dL Red Cell Distribution Width 13.2 10.0-14.5 % Platelet Count 260 130-400 10^3/uL Mean Platelet Volume 10.0 9.0-12.2 fL Immature Granulocyte % (Auto) 0 % Neutrophils (%) (Auto) 60 42-75 % Lymphocytes (%) (Auto) 23 12-44 % Monocytes (%) (Auto) 7 0-12 % Eosinophils (%) (Auto) 10 0-10 % Basophils (%) (Auto) 1 0-10 % Neutrophils # (Auto) 4.9 1.8-7.8 10^3/uL Lymphocytes # (Auto) 1.9 1.0-4.0 10^3/uL Monocytes # (Auto) 0.6 0.0-1.0 10^3/uL Eosinophils # (Auto) 0.8 H 0.0-0.3 10^3/uL Basophils # (Auto) 0.1 0.0-0.1 10^3/uL Immature Granulocyte # (Auto) 0.0 0.0-0.1 10^3/uL Prothrombin Time 12.4 12.2-14.7 SEC INR Comment 0.9 0.8-1.4 Activated Partial Thromboplast Time 30 24-35 SEC D-Dimer < 0.27 0.00-0.49 UG/ML Sodium Level 135 135-145 MMOL/L Potassium Level 4.0 3.6-5.0 MMOL/L Chloride Level 101 98-107 MMOL/L Carbon Dioxide Level 21 21-32 MMOL/L Anion Gap 13 5-14 MMOL/L Blood Urea Nitrogen 12 7-18 MG/DL Creatinine 0.83 0.60-1.30 MG/DL Estimat Glomerular Filtration Rate 113 BUN/Creatinine Ratio 14 Glucose Level 83 70-105 MG/DL Calcium Level 9.7 8.5-10.1 MG/DL Corrected Calcium 9.7 8.5-10.1 MG/DL Magnesium Level 1.7 1.6-2.4 MG/DL Total Bilirubin 0.3 0.1-1.0 MG/DL Aspartate Amino Transf (AST/SGOT) 22 5-34 U/L Alanine Aminotransferase (ALT/SGPT) 32 0-55 U/L Alkaline Phosphatase 96 40-136 U/L Myoglobin 33.2 10.0-92.0 NG/ML Troponin I < 0.028 < 0.028 <0.028 NG/ML C-Reactive Protein High Sensitivity 0.61 H 0.00-0.50 MG/DL B-Type Natriuretic Peptide < 10.0 <100.0 PG/ML Total Protein 7.5 6.4-8.2 GM/DL Albumin 4.0 3.2-4.5 GM/DL My Orders Orders - EARNESTINE LEIVA MD Nitroglycerin 0.4 Mg Btl 25's (Nitrostat (08/24/21 14:30) Chest Pa/Lat (2 View) (08/24/21 14:25) Ketorolac Injection (Toradol Injection) (08/24/21 15:45) Troponin I [place] (08/24/21 16:15) Morphine Injection (Morphine Injection (08/24/21 16:44) Fibrin Degradation Products (08/24/21 17:02) Ekg Tracing (08/24/21 17:03) Gabapentin Capsule/Tablet (Neurontin Cap (08/24/21 17:45) Lorazepam Injection (Ativan Injection) (08/24/21 17:45) Medications Given in ED Current Medications Medications Dose Ordered Sig/Anatoly Route Start Time Stop Time Status Last Admin Dose Admin Albuterol/ Ipratropium 3 ml ONCE ONCE INH 08/24/21 14:15 08/24/21 14:16 DC 08/24/21 15:33 3 ML Aspirin 324 mg ONCE ONCE PO 08/24/21 14:15 08/24/21 14:16 DC 08/24/21 14:47 324 MG Ketorolac Tromethamine 30 mg ONCE ONCE IVP 08/24/21 15:45 08/24/21 15:46 DC 08/24/21 15:55 30 MG Nitroglycerin 0.4 mg UD PRN SL 08/24/21 14:30 08/24/21 14:47 0.4 MG Vital Signs/I&O 08/24/21 08/24/21 14:07 15:33 Pulse 90 Resp 16 B/P (MAP) 149/110 (123) Pulse Ox 96 98 O2 Delivery Room Air Room Air Blood Pressure Mean: 123 Progress Progress Note #1: Time: 17:10 Progress Note Patient noted no significant improvement in his pain with nitroglycerin. He was additionally given Toradol 30 mg IV. Likewise, he stated no significant improvement. Morphine 5 mg IV was then administered to manage his pain. Thus far work-up has been unremarkable. A repeat troponin is pending. Repeat EKG was normal. D-dimer is pending. I discussed the case with Dr. Horowitz and admission is felt appropriate as his stress test cannot be rescheduled until October. Progress Note #2: Time: 17:55 Progress Note Patient stated that nothing we had done had improved his pain significantly including nitroglycerin, Toradol, and morphine. He describes some pain that occasionally radiates from the chest into the neck and down the arm with some associated numbness in the arm. He denies any trauma to the neck or back. He has no known spine disease. However, the symptoms could be radicular in nature. He was given some gabapentin to trial treatment of potential neuropathic pain. He was also quite anxious and was offered Ativan which he accepted. Patient is being admitted to Dr. Farr with Dr. Horowitz consulting. Transfer to the floor is being deferred until after nursing shift change due to nursing staff sarika rtage. Initial ECG Impression Date: Aug 24, 2021 Initial ECG Impression Time: 14:02 Initial ECG Rate: 88 Initial ECG Rhythm: Normal Sinus Initial ECG Intervals: Normal Initial ECG Impression: Normal Comment Normal sinus rhythm with no ST elevation or depression. No abnormal intervals or axis deviation. EKG : EKG Time: 17:02 Rate: 84 Rhythm: Normal Sinus Intervals: Normal ECG Impression: Normal Comment Normal sinus rhythm with no ST elevation or depression. No abnormal intervals or axis deviation. Diagnostic Imaging Diagonstic Imaging: Xray Plain Films/CT/US/NM/MRI: chest Comments 2 view chest x-ray viewed by me and report reviewed. See report below: NAME: EARNESTINE ALMAGUER [facility] REC#: [id number] PT STATUS: REG ER : 1980 PHYSICIAN: EARNESTINE LEIVA MD ADMIT DATE: 08/24/21/ER Signed Date of Exam:08/24/21 CHEST PA/LAT (2 VIEW) INDICATIONS: Chest pain, shortness of breath PA and lateral chest obtained at 2:39 p.m. Heart and mediastinal silhouette are normal in appearance. The lungs are clear. There is no pneumothorax or pleural fluid IMPRESSION: Negative chest. Dictated by: Dictated on workstation # [id number] Dict: 08/24/21 1446 Trans: 08/24/21 1505 CV [id number] Interpreted by: MARISOL BARBOZA MD Electronically signed by: MARISOL BARBOZA MD 08/24/21 1505 Departure Communication (Admissions) Time/Spoke to Admitting Phy: 17:25 Dr. Farr Time/Spoke to Consulting Phy: 17:00 Dr. Horowitz Impression Primary Impression: Chest pain Qualified Codes: R07.9 - Chest pain, unspecified Additional Impression: Anxiety Disposition: ADMITTED INPATIENT Condition: Stable Admissions Decision to Admit Reason: Admit from ER (General) Decision to Admit/Date: Aug 24, 2021 Time/Decision to Admit Time: 17:00 Departure-Patient Inst. Referrals: [facility] [place] (PCP) Primary Care Physician JOSE LUIS HAYDEN APRN (Family) Primary Care Physician Copy Copies To 1: CHINA CISNEROS MD, JOSHUA T MD Aug 24, 2021 15:37
[2021-08-24] MEDS ORDERED: KETOROLAC 30 MG/ML VIAL IVP ONE (15:45)
[2021-08-24] MEDS ORDERED: morphine INJ 10 MG/ML 1ML (SYR OR VIAL) IVP STA (16:44)
[2021-08-24] MEDS ORDERED: GABAPENTIN 300 MG (NEURONTIN) CAP PO ONE (17:45)
[2021-08-24] MEDS ORDERED: LORazepam INJ 2 MG/ML (ATIVAN) VIAL IVP ONE (17:45)
[2021-08-24] MEDS ORDERED: morphine INJ 4 MG/ML 1 ML (VIAL/SYRINGE) IV PRN (20:15)
[2021-08-24] MEDS ORDERED: ONDANSETRON 4 MG/2 ML (SDV) Z0FRAN IVP PRN (20:15)
[2021-08-24] MEDS ORDERED: PATIENT MAY USE OWN MEDS, ALL PO SCH (20:15)
[2021-08-24] MEDS ORDERED: NITROGLYCERIN 0.4 MG SL TABS BTL 25'S SL PRN (20:15)
[2021-08-25] VITALS: BP 130/85
[2021-08-25 01:00] VITALS: BP 116/91
[2021-08-25 03:08] VITALS: BP 135/75
[2021-08-25 05:53] LABS: BASOPHILS # (AUTO) 0.1 10^3/uL (0.0-0.1); BASOPHILS % (AUTO) 1 % (0-10); MEAN PLATELET VOLUME 10.1 fL (9.0-12.2)
[2021-08-25 05:55] LABS: EOSINOPHILS # (AUTO) 0.6 10^3/uL (0.0-0.3); EOSINOPHILS % (AUTO) 5 % (0-10); HEMATOCRIT 42 % (40-54); HEMOGLOBIN 13.2 g/dL (13.3-17.7); LYMPHOCYTES # (AUTO) 1.2 10^3/uL (1.0-4.0); LYMPHOCYTES % (AUTO) 10 % (12-44); MEAN CORPUSCULAR HEMOGLOBIN 29 pg (25-34); MEAN CORPUSCULAR HGB CONC 32 g/dL (32-36); MEAN CORPUSCULAR VOLUME 92 fL (80-99); MONOCYTES # (AUTO) 0.5 10^3/uL (0.0-1.0); MONOCYTES % (AUTO) 5 % (0-12); NEUTROPHILS # (AUTO) 8.9 10^3/uL (1.8-7.8); NEUTROPHILS % (AUTO) 79 % (42-75); PLATELET COUNT 188 10^3/uL (130-400); WHITE BLOOD COUNT 11.2 10^3/uL (4.3-11.0)
[2021-08-25 06:09] LABS: ALBUMIN 3.8 GM/DL (3.2-4.5); POTASSIUM 4.2 MMOL/L (3.6-5.0)
[2021-08-25 06:10] LABS: CALCIUM 9.1 MG/DL (8.5-10.1)
[2021-08-25 06:11] LABS: TOTAL PROTEIN 6.9 GM/DL (6.4-8.2)
[2021-08-25 06:15] LABS: CREATININE SERUM 0.79 MG/DL (0.60-1.30)
[2021-08-25 06:49] LABS: BILIRUBIN,TOTAL 0.6 MG/DL (0.1-1.0)
[2021-08-25] MEDS ORDERED: REGADENOSON 0.4 MG/5 ML SYR (LEXISCAN) IV ONE ×2 (07:00→08:43)
[2021-08-25 07:43] VITALS: BP 133/84
--- NOTE | 2021-08-25 08:40 | Consultation-Cardiology ---
HPI-Cardiology Cardiology Consultation: Date of Consultation 08/25/2021 Date of Admission 08/24/2021 Attending Physician Adela Farr MD Admitting Physician [facility] Consulting Physician MONSE ROJO JR, MD HPI: Time Seen by a Provider: 08:00 Chief Complaint: Reason for consultation: Chest pain. I had the pleasure of seeing Vladimir and the cardiac stress lab at [facility] in [place], [place] this morning. He recently saw one of my partners due to chest pain. He had been scheduled for a stress echocardiogram yesterday but this got rescheduled until October. On Sunday he was at work and started getting left-sided chest pain. This felt like a sharp pain in his chest that would make him feel short of breath. He was also getting profound dizzy spells and at one point he fell down due to the dizziness. He denies syncope. The symptoms waxed and waned throughout the day. Then yesterday he went to his primary care provider due to the chest pain. Yesterday the chest pain was constant. It also started radiating towards his left shoulder, left arm and up the left side of his neck. His primary provider is then sent him to the emergency room for further evaluation. He had negative troponin levels and no ischemic changes on his electrocardiogram but due to unrelenting chest pain, he was admitted for observation. In the emergency room he was given nitroglycerin, ketorolac and gabapentin. After receiving these medications, his chest pain improved but did not completely resolve. This morning he states that overnight the chest discomfort has been coming and going but less severe than yesterday. After he received these medications in the emergency room he had some nausea and vomiting. He denies abdominal pain. He denies paroxysmal nocturnal dyspnea, orthopnea, syncope, or ankle edema. He has also noticed some abdominal bloating. Because of the ongoing chest pain, a cardiology consultation was requested. Certain portions of this document may have been dictated utilizing voice recognition technology. Inherent to this technology, typographical and grammatical errors may exist. As much as I am diligent to identify and correct these mistakes, some errors may remain in the document. Review of Systems-Cardiology Review of Systems Other comments Review of 10 organ systems is as per the history of present illness, otherwise negative. PFE-Uqpfow-Eafmda Hx Patient Social History Smoking Status: Never a Smoker 2nd Hand Smoke Exposure: No Have you traveled recently?: No Alcohol Use?: No Pt feels they are or have been: No Immunizations Up To Date Tetanus Booster (TDap): Less than 5yrs Past Medical History PMH As described under Assessment. Family Medical History Family Medical History: His father had a myocardial infarction in his mid 40s. His father is now in his mid 50s and follows with one of my partners. Allergies and Home Medications Allergies Coded Allergies: No Known Drug Allergies (Unverified , 05/04/11) Patient Home Medication List Home Medication List Reviewed: Yes Albuterol Sulfate (Albuterol Sulfate) 2.5 Mg/3 Ml Vial.neb, 2.5 MG IH Q4H PRN for WHEEZING Prescribed by: KEIRA PENA on 07/27/17 1448 Albuterol Sulfate (Albuterol Sulfate) 2.5 Mg/3 Ml Vial.neb, 2.5 MG INH Q4H PRN for WHEEZING Prescribed by: KEIRA PENA on 12/27/18 1736 Albuterol Sulfate (Albuterol Sulfate) 2.5 Mg/3 Ml Vial.neb, 2.5 MG INH Q4H PRN for WHEEZING Prescribed by: KEIRA PENA on 11/06/20 1735 Amoxicillin/Potassium Clav (Augmentin 875-125 Tablet) 1 Each Tablet, 1 EACH PO BID Prescribed by: KEIRA PENA on 06/30/21 1511 Amoxicillin/Potassium Clav (Augmentin 875-125 Tablet) 1 Each Tablet, 1 EACH PO BID Prescribed by: NÉSTOR ESPINOZA on 07/25/21 1209 Azithromycin (Zithromax) 250 Mg Tablet, 250 MG PO UD Prescribed by: KEIRA PENA on 04/02/18 2241 Azithromycin (Azithromycin) 250 Mg Tablet, 250 MG PO UD Prescribed by: GOLD AGUAYO on 06/27/21 1416 Cefdinir (Cefdinir) 300 Mg Capsule, 300 MG PO BID Prescribed by: NÉSTOR ESPINOZA on 01/09/21 2341 Cefuroxime Axetil (Cefuroxime) 250 Mg Tablet, 250 MG PO BID Prescribed by: KEIRA PENA on 04/05/192005 Doxycycline Monohydrate (Doxycycline Monohydrate) 100 Mg Capsule, 100 MG PO BID Prescribed by: MIKAEL FRIEND on 04/13/21 1636 Hydrocodone/Acetaminophen (Hydrocodone-Acetamin 5-325 mg) 1 Each Tablet, 1 TAB PO Q4H PRN for PAIN-MODERATE (5-7) Prescribed by: KEIRA PENA on 03/02/21 1904 Ipratropium/Albuterol Sulfate (Iprat-Albut 0.5-3(2.5) mg/3 ml) 3 Ml Ampul.neb, 3 ML IH Q4H PRN for SHORTNESS OF BREATH Prescribed by: MIKAEL FRIEND on 04/13/21 1636 Levofloxacin (Levofloxacin) 500 Mg Tablet, 500 MG PO DAILY Prescribed by: MIKE CHIN on 05/13/20 1215 Levofloxacin (Levofloxacin) 500 Mg Tablet, 500 MG PO DAILY Prescribed by: KEIRA PENA on 01/20/218 Levothyroxine Sodium (Levothyroxine 50 Mcg Tab) 50 Mcg Tablet, 50 MCG PO DAILY, (Reported) Entered as Reported by: THADDEUS STAHL on 11/12/12 1129 Meclizine HCl (Meclizine HCl) 25 Mg Tablet, 25 MG PO QID PRN for DIZZINESS Prescribed by: MIKAEL FRIEND on 06/15/21 1621 Metoprolol Succinate (Metoprolol Succinate) 25 Mg Tab.er.24h, 25 MG PO DAILY Prescribed by: GOLD AGUAYO on 06/27/21 1416 Ondansetron (Ondansetron Odt) 4 Mg Tab.rapdis, 4 MG PO Q6H PRN for NAUSEA/VOMITING Prescribed by: EDWIN PETER on 08/16/18 1435 Ondansetron (Ondansetron Odt) 8 Mg Tab.rapdis, 8 MG PO Q4H PRN for NAUSEA/VOMITING Prescribed by: NÉSTOR ESPINOZA on 01/09/21 2341 Ondansetron (Ondansetron Odt) 8 Mg Tab.rapdis, 8 MG PO Q6H PRN for NAUSEA/VOMITING Prescribed by: KEIRA PENA on 06/30/21 1511 Pramoxine HCl (Proctofoam) 15 Gm Foam, 1 APPLIC TP QID Prescribed by: VLADIMIR WILKERSON on 06/03/17 2315 Prednisone (Prednisone) 20 Mg Tab, 40 MG PO DAILY Prescribed by: KEIRA PENA on 07/27/17 1448 Prednisone (Prednisone) 5 Mg Tablet, 5 MG PO UD Prescribed by: KEIRA PENA on 04/02/18 2241 Prednisone (Prednisone) 20 Mg Tab, 40 MG PO DAILY Prescribed by: EDWIN PETER on 07/06/18 0225 Prednisone (Prednisone) 20 Mg Tab, 40 MG PO DAILY Prescribed by: EDWIN PETER on 08/16/18 1435 Prednisone (Prednisone) 20 Mg Tab, 40 MG PO DAILY Prescribed by: KEIRA PENA on 12/27/18 173 Prednisone (Prednisone) 20 Mg Tab, 40 MG PO DAILY Prescribed by: KEIRA PENA on 04/05/192005 Prednisone (Prednisone) 20 Mg Tab, 40 MG PO DAILY Prescribed by: KEIRA PENA on 11/06/20 173 Prednisone (Prednisone) 20 Mg Tab, 40 MG PO DAILY Prescribed by: KEIRA PENA on 01/20/212127 Prednisone (Prednisone) 50 Mg Tab, 50 MG PO DAILY Prescribed by: MIKAEL FRIEND on 04/13/21 1636 Prednisone (Prednisone) 10 Mg Tab.ds.pk, 10 MG PO DAILY Prescribed by: KEIRA PENA on 06/30/21 1336 Prednisone (Prednisone) 10 Mg Tab.ds.pk, 10 MG PO DAILY Prescribed by: NÉSTOR ESPINOZA on 07/25/21 1209 [Brio inhaler] , (Reported) Entered as Reported by: SHARYN MEJIA on 06/03/174 Exam Vital Signs Vital Signs Date Time Temp Pulse Resp B/P (MAP) Pulse Ox O2 Delivery O2 Flow Rate FiO2 08/25/21 08:01 93 Nasal Cannula 2.00 08/25/21 07:43 37.5 81 22 133/84 (100) Physical Exam General: Alert. No acute distress. Well nourished and appears stated age. He is obese. Eye: Extraocular movements are intact. Conjunctivae are clear. There are no xanthelasma. HENT: Normocephalic. Atraumatic. Carotid pulsations 2/2 without bruits. Neck: Jugular venous pressure does not appear elevated. No thyromegaly appreciated. Respiratory: Lungs are clear to auscultation. Respirations are non-labored. Breath sounds are equal. Symmetrical chest wall expansion. Cardiovascular: Normal rate. Regular rhythm. No murmur. No gallop. Point of maximal impulse is not appear displaced. Good pulses equal in all extremities. No edema. Gastrointestinal: Soft. Normal bowel sounds. Skin: Skin turgor is normal. There is no pallor. Musculoskeletal: No kyphosis or scoliosis appreciated. Neurologic: Alert and oriented to person, place, time. Cranial nerves 3-12 appear grossly intact. The patient has good motor tone strength in the upper and lower extremities bilaterally. Psychiatric: Cooperative. Appropriate mood & affect. Labs Laboratory Tests Test 08/24/21 14:48 08/24/21 16:50 08/25/21 05:46 Range/Units White Blood Count 8.2 11.2 H 4.3-11.0 10^3/uL Red Blood Count 4.69 4.54 4.30-5.52 10^6/uL Hemoglobin 13.4 13.2 L 13.3-17.7 g/dL Hematocrit 43 42 40-54 % Mean Corpuscular Volume 92 92 80-99 fL Mean Corpuscular Hemoglobin 29 29 25-34 pg Mean Corpuscular Hemoglobin Concent 31 L 32 32-36 g/dL Red Cell Distribution Width 13.2 13.3 10.0-14.5 % Platelet Count 260 188 130-400 10^3/uL Mean Platelet Volume 10.0 10.1 9.0-12.2 fL Immature Granulocyte % (Auto) 0 0 % Neutrophils (%) (Auto) 60 79 H 42-75 % Lymphocytes (%) (Auto) 23 10 L 12-44 % Monocytes (%) (Auto) 7 5 0-12 % Eosinophils (%) (Auto) 10 5 0-10 % Basophils (%) (Auto) 1 1 0-10 % Neutrophils # (Auto) 4.9 8.9 H 1.8-7.8 10^3/uL Lymphocytes # (Auto) 1.9 1.2 1.0-4.0 10^3/uL Monocytes # (Auto) 0.6 0.5 0.0-1.0 10^3/uL Eosinophils # (Auto) 0.8 H 0.6 H 0.0-0.3 10^3/uL Basophils # (Auto) 0.1 0.1 0.0-0.1 10^3/uL Immature Granulocyte # (Auto) 0.0 0.0 0.0-0.1 10^3/uL Prothrombin Time 12.4 12.2-14.7 SEC INR Comment 0.9 0.8-1.4 Activated Partial Thromboplast Time 30 24-35 SEC D-Dimer < 0.27 0.00-0.49 UG/ML Sodium Level 135 134 L 135-145 MMOL/L Potassium Level 4.0 4.2 3.6-5.0 MMOL/L Chloride Level 101 102 98-107 MMOL/L Carbon Dioxide Level 21 20 L 21-32 MMOL/L Anion Gap 13 12 5-14 MMOL/L Blood Urea Nitrogen 12 15 7-18 MG/DL Creatinine 0.83 0.79 0.60-1.30 MG/DL Estimat Glomerular Filtration Rate 113 114 BUN/Creatinine Ratio 14 19 Glucose Level 83 95 70-105 MG/DL Calcium Level 9.7 9.1 8.5-10.1 MG/DL Corrected Calcium 9.7 9.3 8.5-10.1 MG/DL Magnesium Level 1.7 1.6-2.4 MG/DL Total Bilirubin 0.3 0.6 0.1-1.0 MG/DL Aspartate Amino Transf (AST/SGOT) 22 21 5-34 U/L Alanine Aminotransferase (ALT/SGPT) 32 30 0-55 U/L Alkaline Phosphatase 96 90 40-136 U/L Myoglobin 33.2 10.0-92.0 NG/ML Troponin I < 0.028 < 0.028 <0.028 NG/ML C-Reactive Protein High Sensitivity 0.61 H 0.00-0.50 MG/DL B-Type Natriuretic Peptide < 10.0 <100.0 PG/ML Total Protein 7.5 6.9 6.4-8.2 GM/DL Albumin 4.0 3.8 3.2-4.5 GM/DL Percent Immature Platelet Fraction 2.5 0.0-7.6 % Triglycerides Level 55 <150 MG/DL Cholesterol Level 199 < 200 MG/DL LDL Cholesterol Direct 126 1-129 MG/DL VLDL Cholesterol 11 5-40 MG/DL HDL Cholesterol 66 H 40-60 MG/DL Radiology Echocardiogram from 08/01/2021 showed normal left ventricular chamber size with mild concentric left ventricular hypertrophy. There was normal left ventricular systolic function with an estimated ejection fraction of 55-60% with no regional wall motion abnormalities identified. The left ventricular diastolic function was not reported. There was trivial aortic regurgitation. The estimated pulmonary artery systolic pressure was 25-30 mmHg. ECG Impression ECG Comment He has had several electrocardiograms during this current hospitalization all of which show sinus rhythm with early transition. Diagnosis/Problems Diagnosis/Problems (1) Chest pain Status: Acute Assessment & Plan: Given the constant nature of his chest pain coupled with no ischemic changes on his electrocardiogram and negative troponin levels, this raises a concern for noncardiac chest pain. Nonetheless, given his age and strong family history, we will proceed with a stress test as above. I will also start him on a proton pump inhibitor in the event that some of his symptoms could be related to gastroesophageal reflux disease. (2) Abnormal electrocardiogram Assessment & Plan: He has a borderline abnormal electrocardiogram showing early transition but without ischemic changes. His troponin levels were negative. He had a previous echocardiogram showing a normal ejection fraction without wall motion abnormalities. The chest pain sounds noncardiac. Nonetheless, given his family history, we will proceed with a nuclear stress test this morning. (3) Personal history of COVID-19 Status: Chronic Assessment & Plan: By his report, he had been diagnosed with COVID infection in December 2020. He then had probable bacterial pneumonia in June 2021. It is conceivable that some of his chest discomfort could be related to long Covid syndrome. (4) Obesity Assessment & Plan: He needs to work on weight loss. Problem Qualifiers (1) Chest pain: Chest pain type: unspecified Qualified Codes: R07.9 - Chest pain, unspecified MONSE ROJO JR, MD Aug 25, 2021 08:40
[2021-08-25] MEDS ORDERED: PANTOPRAZOLE 40 MG (PROTONIX) TAB PO ONE (08:45)
[2021-08-25] MEDS ORDERED: PANTOPRAZOLE 40 MG (PROTONIX) VIAL IV ONE (08:45)
[2021-08-25 08:47] VITALS: BP 138/102
[2021-08-25] MEDS ORDERED: ONDANSETRON 4 MG/2 ML (SDV) Z0FRAN ONE (08:54)
[2021-08-25] MEDS ORDERED: ASPIRIN E.C. 81 MG (ECOTRIN) TAB PO SCH (09:00)
[2021-08-25] MEDS ORDERED: PANTOPRAZOLE 40 MG (PROTONIX) TAB PO SCH (09:00)
[2021-08-25] MEDS ORDERED: ACETAMINOPHEN 325 MG TABLET PO PRN (10:00)
[2021-08-25] MEDS ORDERED: ACETAMINOPHEN 325 MG TABLET ONE (10:04)
--- NOTE | 2021-08-25 10:38 | NUCLEAR STRESS TEST ---
REGADENOSON NUCLEAR STRESS Date of procedure: 08/25/2021. Primary care provider: Eneida Lockwood APRN Admitting physician: Adela Farr MD. INDICATION: Chest pain and abnormal electrocardiogram. BASELINE ELECTROCARDIOGRAM: Sinus rhythm. STRESS TEST PROCEDURE: This was initially intended to be a treadmill nuclear stress test but the patient stated that he was too dizzy to walk on the treadmill. The patient was administered 0.4 mg of intravenous Regadenoson. The resting heart rate was 92 bpm and the peak heart rate was 130 bpm. The resting blood pressure was 138/102 mmHg and the minimum blood pressure was 138/102 mmHg. This represents a normal heart rate and a blunted blood pressure response to Regadenoson. The test was stopped due to the protocol. There was no chest discomfort during the test. There were no arrhythmias during the test. There were no significant stress induced electrocardiogram changes. NUCLEAR PROCEDURE: The patient was administered 9.7 mCi of intravenous te chnetium 99m Tetrofosmin at rest for the rest images. The patient was subsequently administered 30.8 mCi of intravenous technetium 99m Tetrofosmin at peak stress for the stress images. Following an appropriate wait after each injection, imaging was obtained. The images were subsequently processed and reformatted in the usual views. Gated imaging was obtained. The image quality was adequate with a mild degree of gastrointestinal attenuation artifact. CT attenuation correction was used as a adjunct to standard imaging. Both the corrected and uncorrected images were reviewed for interpretation. NUCLEAR RESULTS: There was normal myocardial perfusion in all segments without evidence of infarction or ischemia. There was normal left ventricular chamber size with an end-diastolic volume of 63 mL and an end-systolic volume of 14 mL. There was no evidence of transient ischemic dilatation. The TID ratio was 0.99. There was normal wall motion in all segments with a calculated ejection fraction of 78%. IMPRESSION: 1. Normal heart rate and a blunted blood pressure response to regadenoson. 2. There was no chest discomfort, arrhythmias, or electrocardiogram changes during the test. 3. There was normal myocardial perfusion in all segments without evidence of infarction or ischemia. 4. There was normal wall motion in all segments with a calculated ejection fraction of 70%. Certain portions of this document may have been dictated utilizing voice recognition technology. Inherent to this technology, typographical and grammatical errors may exist. As much as I am diligent to identify and correct these mistakes, some errors may remain in the document. MONSE ROJO JR, MD Aug 25, 2021 10:38
[2021-08-25] MEDS ORDERED: RT-ALBUTEROL/IPRATROPIUM 3 ML (DUONEB) VIAL INH NR (11:15)
[2021-08-25 12:15] VITALS: BP 134/92
[2021-08-25] MEDS ORDERED: RT-ALBUINH INH (12:39)
[2021-08-25] MEDS ORDERED: CETI10TA17 PO (12:39)
[2021-08-25] MEDS ORDERED: MONT-40 PO (12:39)
[2021-08-25] MEDS ORDERED: ALB0.5V INH (12:39)
[2021-08-25] MEDS ORDERED: MTP25TSR PO (12:39)
[2021-08-25] MEDS ORDERED: LEVO137T2 PO (12:39)
[2021-08-25] MEDS ORDERED: FLUT1DIS27 IH (12:41)
--- NOTE | 2021-08-25 13:29 | Short Stay Summary ---
HPI History of Present Illness: 41 yo M that presented to ER with chest pain. States that it woke him up when he was sleeping. Located in his left chest. Denies any sweating or radiation of pain. He has been having chest pain on and off for several months. He was suppose to have stress test that was rescheduled and has not had it done yet. Patient denies any previous cardiac concerns. + FHx of cardiac problems. Source: patient Exam Limitations: no limitations Date seen by provider: Aug 25, 2021 Time Seen by Provider: 10:45 Attending Physician Edith Farr MD PCP Center/[facility] Consult Date of Admission Aug 24, 2021 at 19:27 Home Medications Home Medications Reviewed patient Home Medication Reconciliation performed by pharmacy medication reconciliations dermatology technician and/or nursing. Patients Allergies have been reviewed. 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: [employer] Past Medical History Hypothyroidism Recent Covid infection Family Medical History Significant Family History: Heart Disease Review of Systems ([facility]) Constitutional: no symptoms reported; No chills, No fever, No malaise, No weakness EENTM: no symptoms reported; No mouth pain, No nose congestion Respiratory: No cough; dyspnea on exertion; No orthopnea Cardiovascular: chest pain; No edema, No palpitations Gastrointestinal: no symptoms reported; No abdominal pain, No constipation, No diarrhea, No nausea, No vomiting Genitourinary: no symptoms reported; No dysuria, No frequency, No hematuria Musculoskeletal: no symptoms reported; No back pain, No joint pain, No muscle pain Skin: no symptoms reported Psychiatric/Neurological: Anxiety Reviewed Test Results Reviewed Test Results Lab Laboratory Tests Test 08/24/21 14:48 08/24/21 16:50 08/25/21 05:46 Range/Units White Blood Count 8.2 11.2 H 4.3-11.0 10^3/uL Red Blood Count 4.69 4.54 4.30-5.52 10^6/uL Hemoglobin 13.4 13.2 L 13.3-17.7 g/dL Hematocrit 43 42 40-54 % Mean Corpuscular Volume 92 92 80-99 fL Mean Corpuscular Hemoglobin 29 29 25-34 pg Mean Corpuscular Hemoglobin Concent 31 L 32 32-36 g/dL Red Cell Distribution Width 13.2 13.3 10.0-14.5 % Platelet Count 260 188 130-400 10^3/uL Mean Platelet Volume 10.0 10.1 9.0-12.2 fL Immature Granulocyte % (Auto) 0 0 % Neutrophils (%) (Auto) 60 79 H 42-75 % Lymphocytes (%) (Auto) 23 10 L 12-44 % Monocytes (%) (Auto) 7 5 0-12 % Eosinophils (%) (Auto) 10 5 0-10 % Basophils (%) (Auto) 1 1 0-10 % Neutrophils # (Auto) 4.9 8.9 H 1.8-7.8 10^3/uL Lymphocytes # (Auto) 1.9 1.2 1.0-4.0 10^3/uL Monocytes # (Auto) 0.6 0.5 0.0-1.0 10^3/uL Eosinophils # (Auto) 0.8 H 0.6 H 0.0-0.3 10^3/uL Basophils # (Auto) 0.1 0.1 0.0-0.1 10^3/uL Immature Granulocyte # (Auto) 0.0 0.0 0.0-0.1 10^3/uL Prothrombin Time 12.4 12.2-14.7 SEC INR Comment 0.9 0.8-1.4 Activated Partial Thromboplast Time 30 24-35 SEC D-Dimer < 0.27 0.00-0.49 UG/ML Sodium Level 135 134 L 135-145 MMOL/L Potassium Level 4.0 4.2 3.6-5.0 MMOL/L Chloride Level 101 102 98-107 MMOL/L Carbon Dioxide Level 21 20 L 21-32 MMOL/L Anion Gap 13 12 5-14 MMOL/L Blood Urea Nitrogen 12 15 7-18 MG/DL Creatinine 0.83 0.79 0.60-1.30 MG/DL Estimat Glomerular Filtration Rate 113 114 BUN/Creatinine Ratio 14 19 Glucose Level 83 95 70-105 MG/DL Calcium Level 9.7 9.1 8.5-10.1 MG/DL Corrected Calcium 9.7 9.3 8.5-10.1 MG/DL Magnesium Level 1.7 1.6-2.4 MG/DL Total Bilirubin 0.3 0.6 0.1-1.0 MG/DL Aspartate Amino Transf (AST/SGOT) 22 21 5-34 U/L Alanine Aminotransferase (ALT/SGPT) 32 30 0-55 U/L Alkaline Phosphatase 96 90 40-136 U/L Myoglobin 33.2 10.0-92.0 NG/ML Troponin I < 0.028 < 0.028 <0.028 NG/ML C-Reactive Protein High Sensitivity 0.61 H 0.00-0.50 MG/DL B-Type Natriuretic Peptide < 10.0 <100.0 PG/ML Total Protein 7.5 6.9 6.4-8.2 GM/DL Albumin 4.0 3.8 3.2-4.5 GM/DL Percent Immature Platelet Fraction 2.5 0.0-7.6 % Triglycerides Level 55 <150 MG/DL Cholesterol Level 199 < 200 MG/DL LDL Cholesterol Direct 126 1-129 MG/DL VLDL Cholesterol 11 5-40 MG/DL HDL Cholesterol 66 H 40-60 MG/DL Physical Exam-([facility]) Physical Exam Vital Signs VS - Last 72 Hours, by Label 08/24/21 08/24/21 08/24/21 08/24/21 14:07 15:33 19:31 19:55 Pulse 90 85 80 Resp 16 20 18 B/P (MAP) 149/110 (123) 139/95 134/92 (106) Pulse Ox 96 98 95 97 O2 Delivery Room Air Room Air Room Air Room Air 08/24/21 08/24/21 08/24/21 08/24/21 19:58 20:00 20:15 20:30 Temp 36.2 Pulse 75 80 B/P (MAP) 129/85 (100) 139/92 (108) Pulse Ox 94 96 96 O2 Delivery Nasal Cannula Room Air Room Air O2 Flow Rate 2.00 08/24/21 08/24/21 08/24/21 08/24/21 20:45 21:00 21:12 21:30 Pulse 75 71 81 83 B/P (MAP) 134/89 (104) 124/86 (99) 124/84 (97) Pulse Ox 94 96 97 O2 Delivery Room Air Room Air Nasal Cannula O2 Flow Rate 2.00 08/24/21 08/24/21 08/25/21 08/25/21 22:00 23:00 00:00 01:00 Temp 36.1 Pulse 75 72 72 63 Resp 20 B/P (MAP) 117/78 (91) 135/87 (103) 130/85 (100) Pulse Ox 97 94 96 O2 Delivery Nasal Cannula Nasal Cannula Nasal Cannula O2 Flow Rate 2.00 2.00 2.00 08/25/21 08/25/21 08/25/21 08/25/21 01:00 03:08 07:00 07:43 Temp 36.2 37.5 Pulse 91 74 81 81 Resp 18 22 B/P (MAP) 116/91 (99) 135/75 (95) 133/84 (100) Pulse Ox 94 93 93 O2 Delivery Nasal Cannula Nasal Cannula Room Air O2 Flow Rate 2.00 2.00 08/25/21 08/25/21 08/25/21 08/25/21 08:01 08:47 11:12 11:41 Pulse 92 B/P (MAP) 138/102 (114) Pulse Ox 93 96 97 95 O2 Delivery Nasal Cannula Room Air Nasal Cannula Room Air O2 Flow Rate 2.00 0.50 08/25/21 12:15 Temp 35.5 Pulse 92 Resp 20 B/P (MAP) 134/92 (106) Pulse Ox 98 O2 Delivery Nasal Cannula O2 Flow Rate 2.00 Capillary Refill : Less Than 3 Seconds General Appearance: WD/WN, no apparent distress HEENT: PERRL/EOMI Neck: non-tender, full range of motion, supple Respiratory: chest non-tender, lungs clear, normal breath sounds, no respiratory distress, no accessory muscle use Cardiovascular: normal peripheral pulses, regular rate, rhythm, no edema, no murmur Gastrointestinal: normal bowel sounds, non tender, soft Back: no CVA tenderness, no vertebral tenderness Extremities: normal range of motion, non-tender, normal inspection, no pedal edema, no calf tenderness, normal capillary refill Neurologic/Psychiatric: heel seat fitter machine II-XII nml as tested, no motor/sensory deficits, alert, normal mood/affect, oriented x 3 Skin: normal color, warm/dry Lymphatic: no adenopathy Short Stay Diagnosis Discharge Diagnosis-Short Stay Admission Diagnosis See problem list Final Discharge Diagnosis See problem list Conclusion Plan See Below Problem List (1) Chest pain Qualifiers: Qualified Codes: R07.9 - Chest pain, unspecified Assessment & Plan: Given the constant nature of his chest pain coupled with no ischemic changes on his electrocardiogram and negative troponin levels, this raises a concern for noncardiac chest pain. Nonetheless, given his age and strong family history, we will proceed with a stress test as above. I will also start him on a proton pump inhibitor in the event that some of his symptoms could be related to gastroesophageal reflux disease. Status: Acute (2) Abnormal electrocardiogram Assessment & Plan: He has a borderline abnormal electrocardiogram showing early transition but without ischemic changes. His troponin levels were negative. He had a previous echocardiogram showing a normal ejection fraction without wall motion abnormalities. The chest pain sounds noncardiac. Nonetheless, given his family history, we will proceed with a nuclear stress test this morning. Status: Chronic (3) Personal history of COVID-19 Assessment & Plan: By his report, he had been diagnosed with COVID infection in December 2020. He then had probable bacterial pneumonia in June 2021. It is conceivable that some of his chest discomfort could be related to long Covid syndrome. Status: Chronic (4) Obesity Assessment & Plan: He needs to work on weight loss. Copy Copies To 1: Eneida ECHAVARRIA Assessment/Plan Assessment/Plan Admission Status: Observation (1) Atypical chest pain Status: Acute Assessment & Plan: - Cardiology consulted, stress test normal, normal CE, Not likely cardiac in nature, could be related to terminal superintendent covid infection (2) Abnormal electrocardiogram Status: Chronic (3) COPD (chronic obstructive pulmonary disease) Status: Acute Qualifiers: Qualified Codes: J41.0 - Simple chronic bronchitis (4) Personal history of COVID-19 Status: Chronic EDITH FARR MD Aug 25, 2021 13:29
[2021-08-25] MEDS ORDERED: ASPI-1238 PO (13:30)
[2021-08-25] MEDS ORDERED: PANT40TA52 PO (13:30)
--- NOTE | 2021-08-25 13:31 | Discharge Summary ---
Discharge [facility] Reconcile Patient Problems Problems Reviewed?: Yes Discharge Medications New, Converted or Re-Newed RX: Transmitted to Pharmacy New Medications: Aspirin (Aspirin EC) 81 Mg Tablet. 81 MG PO DAILY, #30 TAB Pantoprazole Sodium (Pantoprazole Sodium) 40 Mg Tablet.dr 40 MG PO DAILY, #30 TAB Continued Medications: Albuterol Sulfate (Albuterol Sulfate) 2.5 Mg/0.5 Ml Vial.neb 2.5 MG INH Q6H PRN for SHORTNESS OF BREATH, EACH Albuterol Sulfate (Ventolin Hfa) 1 Puff Puff 2 PUFF INH Q4H PRN for SHORTNESS OF BREATH, EA Cetirizine HCl (Cetirizine HCl) 10 Mg Tablet 10 MG PO DAILY, TAB Fluticasone/Salmeterol (Advair 500-50 Diskus) 1 Each Blst.w.dev 1 EACH IH BID PRN for SHORTNESS OF BREATH, EA Levothyroxine Sodium (Levothyroxine Sodium) 137 Mcg Tablet 137 MCG PO DAILY, TAB Metoprolol Succinate (Metoprolol Succinate) 25 Mg Tab.er.24h 25 MG PO DAILY, TAB Montelukast Sodium (Montelukast Sodium) 10 Mg Tablet 10 MG PO DAILY, TAB Patient Instructions Goal/Follow Up Appt: F.u with PCP 1-2 weeks Patient Instructions: Normal Stress test, pain is not likely cardiac in nature Activity & Diet Discharge Diet: Cardiac Diet Activity as Tolerated: Yes EDITH BARILLAS MD Aug 25, 2021 13:30
[2021-08-26] MEDS ORDERED: PANTOPRAZOLE 40 MG (PROTONIX) TAB PO SCH (09:00)
== END 2021-08-25 14:45 | disposition home or self-care (01) ==
LOC: EDUNIT# 14:05 → ER 14:06 → 4TH 19:27
PROVIDERS: ADMIT Family Medicine; ATTEND Family Medicine
DX: R07.89 Other chest pain (principal); R94.31 Abnormal electrocardiogram [ECG] [EKG]; E66.9 Obesity, unspecified; J44.9 Chronic obstructive pulmonary disease, unspecified; Z86.16 Personal history of COVID-19; Z68.36 Body mass index [BMI] 36.0-36.9, adult
CPT/HCPCS: 71046; 78452; 80053 ×2; 80061; 83735; 83874; 83880; 84484; 85025 ×2; 85379; 85610; 85730; 86141; 93005 ×2; 93017; 93041; 94640 ×2; 94760; 99284; A9502; 36415

== ENCOUNTER 2021-09-04 19:23 | Emergency (ER) | payer SELFPAY ==
[~2021-09-04] VITALS: Ht 175.3 cm; Wt 113.0 kg
[~2021-09-04 19:23] MED LIST changes: +ALB0.5V INH; +ASPI-1238 PO; +CETI10TA17 PO; +FLUT1DIS27 IH; +LEVO137T2 PO; +MONT-40 PO; +PANT40TA52 PO; +RT-ALBUINH INH
[2021-09-04 19:45] LABS: BASOPHILS # (AUTO) 0.1 10^3/uL (0.0-0.1); BASOPHILS % (AUTO) 1 % (0-10); EOSINOPHILS # (AUTO) 0.7 10^3/uL (0.0-0.3); EOSINOPHILS % (AUTO) 9 % (0-10); HEMATOCRIT 48 % (40-54); HEMOGLOBIN 15.1 g/dL (13.3-17.7); LYMPHOCYTES # (AUTO) 1.8 10^3/uL (1.0-4.0); LYMPHOCYTES % (AUTO) 21 % (12-44); MEAN CORPUSCULAR HEMOGLOBIN 28 pg (25-34); MEAN CORPUSCULAR HGB CONC 31 g/dL (32-36); MEAN CORPUSCULAR VOLUME 90 fL (80-99); MEAN PLATELET VOLUME 9.9 fL (9.0-12.2); MONOCYTES # (AUTO) 0.7 10^3/uL (0.0-1.0); MONOCYTES % (AUTO) 8 % (0-12); NEUTROPHILS # (AUTO) 5.2 10^3/uL (1.8-7.8); NEUTROPHILS % (AUTO) 62 % (42-75); PLATELET COUNT 309 10^3/uL (130-400); WHITE BLOOD COUNT 8.5 10^3/uL (4.3-11.0)
[2021-09-04] MEDS ORDERED: ASPIRIN 81 MG CHEW (CHILDREN'S ASA) PO ONE (19:45)
--- NOTE | 2021-09-04 19:48 | ED Chest Pain ---
General Chief Complaint: Chest Pain Stated Complaint: CP Nursing Triage Note: PT TO RM 4 VIA [facility] EMS W C/O CHEST HEAVINESS X 2 HRS. PT BELIEVES ANXIETY IS CAUSING HIS CHEST DISCOMFORT, REPORTS HE HAS A DR HARLEEN Vazquez PCP TOMORROW AND HE IS NERVOUS ABOUT IT. PLAYING CORN[employer] WHEN DISCOMFORT BEGAN. 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 History of Present Illness Date Seen by Provider: Sep 04, 2021 Time Seen by Provider: 19:30 Initial Comments 41-year-old male presents for chest pain via EMS. He reports anxiety over a medical appointment he has tomorrow about his liver. He was playing corn [employer] tonight and began having left-sided chest pain. He took aspirin 324 mg prior to arrival. Nitro paste was applied to his chest by EMS. He reports no change in his chest pain. No history of CAD but multiple previous visits for cardiac complaints. 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 Associated Symptoms: denies symptoms Allergies and Home Medications Allergies Coded Allergies: No Known Drug Allergies (Unverified , 05/04/11) Patient Home Medication List Home Medication List Reviewed: Yes Albuterol Sulfate (Albuterol Sulfate) 2.5 Mg/0.5 Ml Vial.neb, 2.5 MG INH Q6H PRN for SHORTNESS OF BREATH, (Reported) Entered as Reported by: JAMIL CHAN on 08/25/21 1239 Albuterol Sulfate (Ventolin Hfa) 1 Puff Puff, 2 PUFF INH Q4H PRN for SHORTNESS OF BREATH, (Reported) Entered as Reported by: JAMIL CHAN on 08/25/21 1239 Aspirin (Aspirin EC) 81 Mg Tablet., 81 MG PO DAILY Prescribed by: EDITH BARILLAS on 08/25/21 1330 Cetirizine HCl (Cetirizine HCl) 10 Mg Tablet, 10 MG PO DAILY, (Reported) Entered as Reported by: JAMIL CHAN on 08/25/21 1239 Fluticasone/Salmeterol (Advair 500-50 Diskus) 1 Each Blst.w.dev, 1 EACH IH BID PRN for SHORTNESS OF BREATH, (Reported) Entered as Reported by: JAMIL CHAN on 08/25/21 1241 Levothyroxine Sodium (Levothyroxine Sodium) 137 Mcg Tablet, 137 MCG PO DAILY, (Reported) Entered as Reported by: JAMIL CHAN on 08/25/21 1239 Metoprolol Succinate (Metoprolol Succinate) 25 Mg Tab.er.24h, 25 MG PO DAILY, (Reported) Entered as Reported by: JAMIL CHAN on 08/25/21 1239 Montelukast Sodium (Montelukast Sodium) 10 Mg Tablet, 10 MG PO DAILY, (Reported) Entered as Reported by: JAMIL CHAN on 08/25/21 1239 Pantoprazole Sodium (Pantoprazole Sodium) 40 Mg Tablet.dr, 40 MG PO DAILY Prescribed by: EDITH BARILLAS on 08/25/21 1330 Review of Systems Review of Systems Constitutional: no symptoms reported, see HPI Respiratory: No Symptoms Reported, See HPI Cardiovascular: See HPI, Chest Pain Gastrointestinal: No Symptoms Reported, See HPI All Other Systems Reviewed Negative Unless Noted: Yes Past Zskdaiy-Wghqis-Yhrugf Hx Patient Social History Tobacco Use?: No Use of E-Cig and/or Vaping dev: No Substance use?: No Alcohol Use?: No Immunizations Up To Date Tetanus Booster (TDap): Less than 5yrs PED Vaccines UTD: Yes Influenza Vaccine Up-to-Date: Yes; Up-to-Date First/Initial COVID19 Vaccinat: 2020 Second COVID19 Vaccination Elian: 2020 Third COVID19 Vaccination Date: 2020 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[email or web address] Seasonal Allergies Seasonal Allergies: No Past Medical History Surgery/Hospitalization HX: COPD, hypothyroid, CHRONIC CP Surgeries: Yes (HEART CATH 2011) Cardiac Respiratory: Yes Sleep Apnea, COPD Currently Using CPAP: Yes Currently Using BIPAP: No Cardiac: Yes Hypertension Neurological: No Reproductive Disorders: No Genitourinary: No Gastrointestinal: No Musculoskeletal: No Endocrine: Yes Hypothyroidsim HEENT: No Cancer: No Psychosocial: Yes Anxiety Integumentary: No Blood Disorders: No Family Medical History Reviewed Nursing Family Hx Heart Disease Physical Exam Vital Signs Vital Signs - First Documented 09/04/21 19:23 Temp 36.8 Pulse 90 Resp 20 B/P (MAP) 137/92 (107) Pulse Ox 98 O2 Delivery Room Air Capillary Refill : Less Than 3 Seconds Height, Weight, BMI Height: 5'9.00" Weight: 210lbs. 0oz. 95.963484ix; 36.00 BMI Method:Stated General Appearance: No Apparent Distress, WD/WN, Mild Distress (anxiety) HEENT: PERRL/EOMI, TMs Normal, Normal ENT Inspection, Pharynx Normal Neck: Full Range of Motion, Normal Inspection, Non Tender, Supple Respiratory: Chest Non Tender, Lungs Clear, Normal Breath Sounds Cardiovascular: Regular Rate, Rhythm, No Edema, No Murmur, Normal Peripheral Pulses Gastrointestinal: Normal Bowel Sounds, Non Tender, Soft Extremity: Normal Capillary Refill, Normal Inspection, Normal Range of Motion Neurologic/Psychiatric: Alert, Oriented x3, No Motor/Sensory Deficits Skin: Normal Color, Warm/Dry Progress/Results/Core Measures Results/Orders Lab Results Laboratory Tests Test 09/04/21 19:30 Range/Units White Blood Count 8.5 4.3-11.0 10^3/uL Red Blood Count 5.36 4.30-5.52 10^6/uL Hemoglobin 15.1 13.3-17.7 g/dL Hematocrit 48 40-54 % Mean Corpuscular Volume 90 80-99 fL Mean Corpuscular Hemoglobin 28 25-34 pg Mean Corpuscular Hemoglobin Concent 31 L 32-36 g/dL Red Cell Distribution Width 13.2 10.0-14.5 % Platelet Count 309 130-400 10^3/uL Mean Platelet Volume 9.9 9.0-12.2 fL Immature Granulocyte % (Auto) 0 % Neutrophils (%) (Auto) 62 42-75 % Lymphocytes (%) (Auto) 21 12-44 % Monocytes (%) (Auto) 8 0-12 % Eosinophils (%) (Auto) 9 0-10 % Basophils (%) (Auto) 1 0-10 % Neutrophils # (Auto) 5.2 1.8-7.8 10^3/uL Lymphocytes # (Auto) 1.8 1.0-4.0 10^3/uL Monocytes # (Auto) 0.7 0.0-1.0 10^3/uL Eosinophils # (Auto) 0.7 H 0.0-0.3 10^3/uL Basophils # (Auto) 0.1 0.0-0.1 10^3/uL Immature Granulocyte # (Auto) 0.0 0.0-0.1 10^3/uL Prothrombin Time 12.2 12.2-14.7 SEC INR Comment 0.9 0.8-1.4 Activated Partial Thromboplast Time 32 24-35 SEC Sodium Level 140 135-145 MMOL/L Potassium Level 3.4 L 3.6-5.0 MMOL/L Chloride Level 103 98-107 MMOL/L Carbon Dioxide Level 21 21-32 MMOL/L Anion Gap 16 H 5-14 MMOL/L Blood Urea Nitrogen 18 7-18 MG/DL Creatinine 1.07 0.60-1.30 MG/DL Estimat Glomerular Filtration Rate 89 BUN/Creatinine Ratio 17 Glucose Level 101 70-105 MG/DL Calcium Level 9.6 8.5-10.1 MG/DL Corrected Calcium 9.4 8.5-10.1 MG/DL Magnesium Level 2.0 1.6-2.4 MG/DL Total Bilirubin 0.3 0.1-1.0 MG/DL Aspartate Amino Transf (AST/SGOT) 26 5-34 U/L Alanine Aminotransferase (ALT/SGPT) 25 0-55 U/L Alkaline Phosphatase 112 40-136 U/L Myoglobin 48.9 10.0-92.0 NG/ML Troponin I < 0.028 <0.028 NG/ML B-Type Natriuretic Peptide < 10.0 <100.0 PG/ML Total Protein 8.5 H 6.4-8.2 GM/DL Albumin 4.3 3.2-4.5 GM/DL My Orders Orders - CORRINE RAE WOODWORKER Cbc With Automated Diff (09/04/21 19:34) Magnesium (09/04/21 19:34) Chest 1 View, Ap/Pa Only (09/04/21 19:34) Ekg Tracing (09/04/21 19:34) Comprehensive Metabolic Panel (09/04/21 19:34) Myoglobin Serum (09/04/21 19:34) Protime With Inr (09/04/21:34) Partial Thromboplastin Time (09/04/21 19:34) O2 (09/04/21:34) Monitor-Rhythm Ecg Trace Only (09/04/21 19:34) Ed Iv/Invasive Line Start (09/04/21 19:34) Bnp [place] (09/04/21 19:34) Troponin I [place] (09/04/21 19:34) Aspirin Chewable Tablet (Baby Aspirin Ch (09/04/21 19:45) Vital Signs/I&O 09/04/21 09/04/21 19:23 21:13 Temp 36.8 Pulse 90 92 Resp 20 20 B/P (MAP) 137/92 (107) 133/91 Pulse Ox 98 97 O2 Delivery Room Air Room Air Blood Pressure Mean: 107 Progress Progress Note : Time: 19:30 Progress Note Patient seen and evaluated, will obtain labs, EKG, and chest x-ray. 2024 all labs within normal. Patient does report subtle improvement in chest pain, he feels it is related to his anxiety. He will talk with his nurse practitioner tomorrow about anxiety medicine. 2100 no further chest pain. Discharge instructions and return precautions reviewed with the patient. Initial ECG Impression Date: Sep 04, 2021 Initial ECG Impression Time: 19:40 Initial ECG Rate: 93 Initial ECG Rhythm: Normal Sinus Initial ECG Intervals: Normal Initial ECG Intervals DE 149, QRSD 98, QT 376, QTc 468. [place] P 67, QRS -14, T 37. Initial ECG Impression: Normal Initial ECG Comparisson: Unchanged Diagnostic Imaging Diagonstic Imaging: Xray Plain Films/CT/US/NM/MRI: chest Comments NAME: EARNESTINE ALMAGUER MED REC#: [id number] PT STATUS: REG ER : 1980 PHYSICIAN: CORRINE RAE ADMIT DATE: 09/04/21/ER Signed Date of Exam:09/04/21 CHEST 1 VIEW, AP/PA ONLY EXAMINATION: Chest 1 view. HISTORY: Chest pain. COMPARISON: 07/25/2021. FINDINGS: The lung volumes are normal. No focal consolidation is seen. No large pleural effusion or pneumothorax is seen. The cardiomediastinal silhouette is normal in size and contour. No acute osseous abnormality is seen. IMPRESSION: No acute pleuroparenchymal process. Dictated by: Dictated on workstation # [id number] Dict: 09/04/211958 Trans: 09/04/212004 PJE [id number] Interpreted by: JOAO BYRD DO Electronically signed by: JOAO BYRD DO 09/04/212004 Departure Impression Primary Impression: Anxiety Additional Impression: Atypical chest pain Disposition: 01 HOME, SELF-CARE Condition: Improved Departure-Patient Inst. Decision time for Depature: 20:30 Referrals: [facility] (PCP) Primary Care Physician JOSE LUIS LOCKWOOD APRN (Family) Primary Care Physician Patient Instructions: Chest Pain That Is Not Caused by the Heart (DC), Anxiety, Adult (DC) Add. Discharge Instructions: Keep your scheduled appointment with Dr. Cisneros and Jose Luis Lockwood APRN. Continue to take aspirin 81 mg once daily. Take all your routine medications as prescribed. Return to the emergency department for new, urgent healthcare needs. All discharge instructions reviewed with patient and/or family. Voiced understanding. CORRINE RAE Sep 04, 2021 19:48
--- NOTE | 2021-09-04 20:01 | Diagnostic Imaging Report ---
EXAMINATION: Chest 1 view. HISTORY: Chest pain. COMPARISON: 07/25/2021. FINDINGS: The lung volumes are normal. No focal consolidation is seen. No large pleural effusion or pneumothorax is seen. The cardiomediastinal silhouette is normal in size and contour. No acute osseous abnormality is seen. IMPRESSION: No acute pleuroparenchymal process. Dictated by: Dictated on workstation # [id number]
[2021-09-04 20:06] LABS: INR 0.9 (0.8-1.4); PROTHROMBIN TIME PATIENT 12.2 SEC (12.2-14.7)
[2021-09-04 20:08] LABS: ALBUMIN 4.3 GM/DL (3.2-4.5); BILIRUBIN,TOTAL 0.3 MG/DL (0.1-1.0); CALCIUM 9.6 MG/DL (8.5-10.1); CREATININE SERUM 1.07 MG/DL (0.60-1.30); POTASSIUM 3.4 MMOL/L (3.6-5.0); TOTAL PROTEIN 8.5 GM/DL (6.4-8.2)
[2021-09-04 21:13] VITALS: BP 133/91
== END 2021-09-04 21:13 | disposition home or self-care (01) ==
LOC: EDUNIT# 19:23 → ER 19:24
DX: F41.9 Anxiety disorder, unspecified (principal); R07.89 Other chest pain
CPT/HCPCS: 36415; 71045; 80053; 83735; 83874; 83880; 84484; 85025; 85610; 85730; 93005; 93041

== ENCOUNTER 2021-10-02 14:33 | Emergency (ER) | payer SELFPAY ==
[~2021-10-02] VITALS: Ht 175.2 cm; Wt 112.9 kg
[2021-10-02] MEDS ORDERED: cefTRIAXone 1 GM PRE-MIX 50 ML IV STA (14:39)
[2021-10-02] MEDS ORDERED: methylPREDNISolone 125 MG (Solu-MEDROL) VIAL IVP ONE (14:45)
--- NOTE | 2021-10-02 14:47 | ED Respiratory ---
General Chief Complaint: Respiratory Problems Stated Complaint: SOB/CP Source: patient Exam Limitations: no limitations (JOSE LICEA) History of Present Illness Date Seen by Provider: Oct 02, 2021 Time Seen by Provider: 14:44 Initial Comments Patient is a 41-year-old male with a history of COPD who presents ED with shortness of breath and right-sided chest pain. Chest pain started this morning around 10:00 right after lutheran. Sharp stabbing pain without radiation. Patient reports cough shortness of breath and wheezing over the past week. Went to his primary care physician and they were concerned for worsening COPD. Was not placed on antibiotics or steroids. Has been using his breathing treatments at home. Patient called EMS secondary to low oxygen level. States his oxygen level was in the 70s and 80s. Does not wear oxygen at home. Did put his father's oxygen on with improvement. Did take medication for his anxiety right before EMS saw patient. Was given a DuoNeb breathing treatment with improvement. Patient did take a nitro without significant improvement. Does follow with Dr. Cisneros. Denies history of known coronary artery disease. Does have a history of hypothyroidism, hypertension and COPD. patient did vomit once today. Denies any diarrhea, abdominal pain, dizziness, visual changes, headache, ear pain, sore throat. Up-to-date on his COVID influenza vaccine. (JOSE LICEA) Allergies and Home Medications Allergies Coded Allergies: No Known Drug Allergies (Unverified , 05/04/11) Patient Home Medication List Home Medication List Reviewed: Yes (JOSE LICEA) Albuterol Sulfate (Albuterol Sulfate) 2.5 Mg/0.5 Ml Vial.neb, 2.5 MG INH Q6H PRN for SHORTNESS OF BREATH, (Reported) Entered as Reported by: JAMIL CHAN on 08/25/21 1239 Albuterol Sulfate (Ventolin Hfa) 1 Puff Puff, 2 PUFF INH Q4H PRN for SHORTNESS OF BREATH, (Reported) Entered as Reported by: JAIML CHAN on 08/25/21 1239 Aspirin (Aspirin EC) 81 Mg Tablet.dr, 81 MG PO DAILY Prescribed by: EDITH BARILLAS on 08/25/21 1330 Azithromycin (Azithromycin) 250 Mg Tablet, 250 MG PO UD Prescribed by: MIKAEL FRIEND on 10/02/21 1612 Cetirizine HCl (Cetirizine HCl) 10 Mg Tablet, 10 MG PO DAILY, (Reported) Entered as Reported by: JAMIL CHAN on 08/25/21 1239 Fluticasone/Salmeterol (Advair 500-50 Diskus) 1 Each Blst.w.dev, 1 EACH IH BID PRN for SHORTNESS OF BREATH, (Reported) Entered as Reported by: JAMIL CHAN on 08/25/21 1241 Levothyroxine Sodium (Levothyroxine Sodium) 137 Mcg Tablet, 137 MCG PO DAILY, (Reported) Entered as Reported by: JAMIL CHAN on 08/25/21 1239 Metoprolol Succinate (Metoprolol Succinate) 25 Mg Tab.er.24h, 25 MG PO DAILY, (Reported) Entered as Reported by: JAMIL CHAN on 08/25/21 1239 Montelukast Sodium (Montelukast Sodium) 10 Mg Tablet, 10 MG PO DAILY, (Reported) Entered as Reported by: JAMIL CHAN on 08/25/21 1239 Pantoprazole Sodium (Pantoprazole Sodium) 40 Mg Tablet.dr, 40 MG PO DAILY Prescribed by: EDITH BARILLAS on 08/25/21 1330 Prednisone (Prednisone) 50 Mg Tab, 50 MG PO DAILY Prescribed by: MIKAEL FRIEND on 10/02/21 1612 Review of Systems Review of Systems Constitutional: chills; No diaphoresis; malaise, weakness EENTM: No hearing loss, No ear pain, No blurred vision, No double vision, No dental problems, No mouth pain, No mouth swelling Respiratory: cough, dyspnea on exertion, short of breath; No stridor Cardiovascular: chest pain; No edema, No Hx of Intervention Gastrointestinal: No abdominal pain, No diarrhea, No nausea, No vomiting Genitourinary: No decreased output, No discharge Musculoskeletal: No back pain, No joint pain Skin: No change in color (JOSE LICEA) All Other Systems Reviewed Negative Unless Noted: Yes (JOSE LICEA) Past Ibkuivf-Seyfaf-Aywlwx Hx Immunizations Up To Date Tetanus Booster (TDap): Less than 5yrs PED Vaccines UTD: Yes First/Initial COVID19 Vaccinat: 2020 Second COVID19 Vaccination Elian: 2020 Third COVID19 Vaccination Date: 2020 (JOSE LICEA) Seasonal Allergies Seasonal Allergies: No (JSOE LICEA) Past Medical History Surgery/Hospitalization HX: COPD, hypothyroid, CHRONIC CP Surgeries: Yes (HEART CATH 2011) Cardiac Respiratory: Yes Sleep Apnea, COPD Currently Using CPAP: Yes Currently Using BIPAP: No Cardiac: Yes Hypertension Neurological: No Reproductive Disorders: No Genitourinary: No Gastrointestinal: No Musculoskeletal: No Endocrine: Yes Hypothyroidsim HEENT: No Cancer: No Psychosocial: Yes Anxiety Integumentary: No Blood Disorders: No (JOSE LICEA) Family Medical History Heart Disease (JOSE LICEA) Physical Exam Vital Signs - First Documented 10/02/21 14:34 Temp 36.2 Pulse 92 Resp 24 B/P (MAP) 159/113 (128) Pulse Ox 98 (EARNESTINE LEIVA MD) Capillary Refill : (JOSE LICEA) Height: 5'9.00" Weight: 210lbs. 0oz. 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 nml as tested, no motor/sensory deficits, alert, normal mood/affect, oriented x 3 Skin: normal color, warm/dry (JOSE LICEA) Focused Exam Lactate Level 10/02/21 14:40: Lactic Acid Level 1.28 (EARNESTINE LEIVA MD) Lactic Acid Level Laboratory Tests Test 10/02/21 14:40 Lactic Acid Level 1.28 MMOL/L (0.50-2.00) (EARNESTINE LEIVA MD) Progress/Results/Core Measures Suspected Sepsis SIRS Temperature: Pulse: Respiratory Rate: Laboratory Tests 10/02/21 14:40: White Blood Count 7.7 Blood Pressure / Mean: 10/02/21 14:40: Lactic Acid Level 1.28 Laboratory Tests 10/02/21 14:40: Creatinine 0.93, Platelet Count 297, Total Bilirubin 0.4 (JOSE LICEA) Results/Orders Lab Results Laboratory Tests Test 10/02/21 14:40 10/02/21 14:50 Range/Units White Blood Count 7.7 4.3-11.0 10^3/uL Red Blood Count 5.00 4.30-5.52 10^6/uL Hemoglobin 13.9 13.3-17.7 g/dL Hematocrit 44 40-54 % Mean Corpuscular Volume 88 80-99 fL Mean Corpuscular Hemoglobin 28 25-34 pg Mean Corpuscular Hemoglobin Concent 32 32-36 g/dL Red Cell Distribution Width 12.7 10.0-14.5 % Platelet Count 297 130-400 10^3/uL Mean Platelet Volume 9.8 9.0-12.2 fL Immature Granulocyte % (Auto) 0 % Neutrophils (%) (Auto) 51 42-75 % Lymphocytes (%) (Auto) 25 12-44 % Monocytes (%) (Auto) 6 0-12 % Eosinophils (%) (Auto) 16 H 0-10 % Basophils (%) (Auto) 2 0-10 % Neutrophils # (Auto) 3.9 1.8-7.8 10^3/uL Lymphocytes # (Auto) 1.9 1.0-4.0 10^3/uL Monocytes # (Auto) 0.5 0.0-1.0 10^3/uL Eosinophils # (Auto) 1.2 H 0.0-0.3 10^3/uL Basophils # (Auto) 0.1 0.0-0.1 10^3/uL Immature Granulocyte # (Auto) 0.0 0.0-0.1 10^3/uL Sodium Level 138 135-145 MMOL/L Potassium Level 4.2 3.6-5.0 MMOL/L Chloride Level 102 98-107 MMOL/L Carbon Dioxide Level 22 21-32 MMOL/L Anion Gap 14 5-14 MMOL/L Blood Urea Nitrogen 11 7-18 MG/DL Creatinine 0.93 0.60-1.30 MG/DL Estimat Glomerular Filtration Rate 106 BUN/Creatinine Ratio 12 Glucose Level 89 70-105 MG/DL Lactic Acid Level 1.28 0.50-2.00 MMOL/L Calcium Level 9.4 8.5-10.1 MG/DL Corrected Calcium 9.3 8.5-10.1 MG/DL Magnesium Level 2.0 1.6-2.4 MG/DL Total Bilirubin 0.4 0.1-1.0 MG/DL Aspartate Amino Transf (AST/SGOT) 20 5-34 U/L Alanine Aminotransferase (ALT/SGPT) 25 0-55 U/L Alkaline Phosphatase 119 40-136 U/L Troponin I < 0.028 <0.028 NG/ML B-Type Natriuretic Peptide < 10.0 <100.0 PG/ML Total Protein 7.6 6.4-8.2 GM/DL Albumin 4.1 3.2-4.5 GM/DL Lipase 27 8-78 U/L Influenza Type A (RT-PCR) Not Detected Not Detecte Influenza Type B (RT-PCR) Not Detected Not Detecte SARS-CoV-2 RNA (RT-PCR) Not Detected Not Detecte (EARNESTINE LEIVA MD) Medications Given in ED Current Medications Medications Dose Ordered Sig/Anatoly Route Start Time Stop Time Status Last Admin Dose Admin Methylprednisolone Sodium Succinate 125 mg ONCE ONCE IVP 10/02/21 14:45 10/02/21 14:46 DC 10/02/21 14:48 125 MG (EARNESTINE LEIVA MD) Vital Signs/I&O 10/02/21 10/02/21 14:34 16:15 Temp 36.2 Pulse 92 74 Resp 24 18 B/P (MAP) 159/113 (128) 114/94 Pulse Ox 98 94 (EARNESTINE LEIVA MD) Vital Signs/I&O Capillary Refill : (JOSE LICEA) Departure Communication (PCP) Patient is a 41-year-old male who presents ED for shortness of breath and cough over the past week. States he has a history of COPD. Has been using his breathing treatments at home. Concern for low oxygen level at home. EMS states oxygen level was 97% on room air on arrival. Was given DuoNeb breathing treatment with improvement. Has been doing his breathing treatment. Saw his primary care physician last week concern for worsening COPD. Patient was recently admitted for pneumonia and had a recent cardiac work-up by Dr. Horowitz in August. Patient stress echocardiogram was reassuring without any ischemic changes, arrhythmia. Had negative serial troponins and Cardilogy felt like chest pain was noncardiac in nature. Does have a strong family cardiac history. EKG today sinus rhythm with normal troponin, BnP. He is not hypoxic or tachycardic here. Walking oxygen 96 to 97%. Chest x-ray was negative for pneumonia. Initially concern for possible pneumonia as he states his primary care physician thought he may be developing pneumonia but was not placed on antibiotics. Blood cultures pending with normal lactic acid. Lab work otherwise unremarkable. Patient was feeling much better here in the ED. He states the chest pain only occurs with the cough which likely more chest wall discomfort. Will discharge azithromycin short burst steroids for COPD exacerbation. COVID and influenza negative. Return precaution were discussed with patient. Follow-up your PCP in 2 to 3 days for evaluation (JOSE LICEA) Impression Primary Impression: COPD (chronic obstructive pulmonary disease) Disposition: 01 HOME, SELF-CARE Condition: Stable Departure-Patient Inst. Decision time for Depature: 16:12 (JOSE LICEA) Referrals: [facility] (PCP) Primary Care Physician JOSE LUIS HAYDEN APRN (Family) Primary Care Physician Patient Instructions: Chronic Obstructive Pulmonary Disease (COPD) (DC) Scripts Azithromycin (Azithromycin) 250 Mg Tablet 250 MG PO UD, #6 TAB TAKE 2 TABLETS ON DAY ONE THEN TAKE 1 TABLET DAILY FOR FOUR MORE DAYS Prov: JOSE LICEA 10/02/21 Prednisone (Prednisone) 50 Mg Tab 50 MG PO DAILY for 4 Days, #4 TAB Prov: JOSE LICEA 10/02/21 Work/School Note: Work Release Form Date Seen in the Emergency Department: Oct 02, 2021 Return to Work: Oct 05, 2021 ATTENDING PHYSICIAN NOTE: I was physically present as attending physician in the emergency department during the care of this patient, but I was not directly involved in the decision making or delivery of care for this patient. (EARNESTINE LEIVA MD) JOSE LICEA Oct 02, 2021 14:47 EARNESTINE LEIVA MD Oct 02, 2021 19:18
[2021-10-02 14:50] LABS: BASOPHILS # (AUTO) 0.1 10^3/uL (0.0-0.1); BASOPHILS % (AUTO) 2 % (0-10); EOSINOPHILS # (AUTO) 1.2 10^3/uL (0.0-0.3); EOSINOPHILS % (AUTO) 16 % (0-10); HEMATOCRIT 44 % (40-54); HEMOGLOBIN 13.9 g/dL (13.3-17.7); LYMPHOCYTES # (AUTO) 1.9 10^3/uL (1.0-4.0); LYMPHOCYTES % (AUTO) 25 % (12-44); MEAN CORPUSCULAR HEMOGLOBIN 28 pg (25-34); MEAN CORPUSCULAR HGB CONC 32 g/dL (32-36); MEAN CORPUSCULAR VOLUME 88 fL (80-99); MEAN PLATELET VOLUME 9.8 fL (9.0-12.2); MONOCYTES # (AUTO) 0.5 10^3/uL (0.0-1.0); MONOCYTES % (AUTO) 6 % (0-12); NEUTROPHILS # (AUTO) 3.9 10^3/uL (1.8-7.8); NEUTROPHILS % (AUTO) 51 % (42-75); PLATELET COUNT 297 10^3/uL (130-400); WHITE BLOOD COUNT 7.7 10^3/uL (4.3-11.0)
[2021-10-02 15:00] LABS: ALBUMIN 4.1 GM/DL (3.2-4.5); CHLORIDE 102 MMOL/L (98-107); POTASSIUM 4.2 MMOL/L (3.6-5.0)
[2021-10-02 15:01] LABS: SODIUM 138 MMOL/L (135-145)
[2021-10-02 15:02] LABS: CALCIUM 9.4 MG/DL (8.5-10.1)
[2021-10-02 15:03] LABS: GLUCOSE 89 MG/DL (70-105); TOTAL PROTEIN 7.6 GM/DL (6.4-8.2)
[2021-10-02 15:04] LABS: CARBON DIOXIDE 22 MMOL/L (21-32)
[2021-10-02 15:05] LABS: BILIRUBIN,TOTAL 0.4 MG/DL (0.1-1.0)
[2021-10-02 15:06] LABS: ALKALINE PHOSPHATASE 119 U/L (40-136)
[2021-10-02 15:07] LABS: CREATININE SERUM 0.93 MG/DL (0.60-1.30); GFR ESTIMATED 106
[2021-10-02 15:08] LABS: BUN/CREATININE RATIO 12
[2021-10-02 15:09] LABS: ALANINE AMINOTRANSFERASE 25 U/L (0-55)
[2021-10-02 15:10] LABS: LIPASE 27 U/L (8-78)
--- NOTE | 2021-10-02 15:18 | Diagnostic Imaging Report ---
INDICATION: Chest pain. TIME OF EXAM: 3:15 PM. COMPARISON: Correlation is made with prior chest of 09/04/2021. FINDING: The heart size is normal. The pulmonary vascularity is unremarkable. The lungs are clear. No infiltrate, effusion or pneumothorax is detected. IMPRESSION: No acute cardiopulmonary process is detected. Dictated by: Dictated on workstation # [id number]
[2021-10-02] MEDS ORDERED: AZIT250T12 PO (16:12)
[2021-10-02] MEDS ORDERED: PRD50T PO (16:12)
[2021-10-02 16:15] VITALS: BP 114/94
== END 2021-10-02 16:22 | disposition home or self-care (01) ==
LOC: EDUNIT# 14:33 → ER 14:34
DX: J44.9 Chronic obstructive pulmonary disease, unspecified (principal); F41.9 Anxiety disorder, unspecified; Z20.822 Contact with and (suspected) exposure to COVID-19; Z79.899 Other long term (current) drug therapy
CPT/HCPCS: 36415; 71045; 80053; 83605; 83690; 83735; 83880; 84484; 85025; 87040; 87636; 93005

== ENCOUNTER 2021-10-05 14:46 | Emergency (ER) | payer SELFPAY ==
[~2021-10-05] VITALS: Ht 177 cm; Wt 109.0 kg
[2021-10-05 14:51] VITALS: BP 159/104
--- NOTE | 2021-10-05 15:29 | ED Chest Pain ---
General Chief Complaint: Chest Wall Stated Complaint: SOA - CHEST PAIN Nursing Triage Note: 1230 TODAY AT WORK, STARTED HAVING CHEST WALL PAIN ON THE RIGHT SIDE AND SOB Source: patient Exam Limitations: no limitations History of Present Illness Date Seen by Provider: Oct 05, 2021 Time Seen by Provider: 14:59 Initial Comments This is a well-appearing 41-year-old male who presented to the ER via [facility] with complaints of intermittent right chest wall pain. States that he is having sharp, stabbing pain right underneath his right breast/rib region, pain is worse with deep breathing. States that he was evaluated and treated in this emergency department on 09/30/21 for similar complaint. He has a personal history of COPD and hypertension, reports significant cardiac family history. He was given azithromycin and prednisone for COPD symptoms. States that he has taken 2 doses of his prednisone however today while he was at work he started having that pain in his right chest and was "not feeling right". Allergies and Home Medications Allergies Coded Allergies: No Known Drug Allergies (Unverified , 05/04/11) Patient Home Medication List Home Medication List Reviewed: Yes Albuterol Sulfate (Albuterol Sulfate) 2.5 Mg/0.5 Ml Vial.neb, 2.5 MG INH Q6H PRN for SHORTNESS OF BREATH, (Reported) Entered as Reported by: JAMIL CHAN on 08/25/21 1239 Albuterol Sulfate (Ventolin Hfa) 1 Puff Puff, 2 PUFF INH Q4H PRN for SHORTNESS OF BREATH, (Reported) Entered as Reported by: JAMIL CHAN on 08/25/21 1239 Aspirin (Aspirin EC) 81 Mg Tablet.dr, 81 MG PO DAILY Prescribed by: EDITH BARILLAS on 08/25/21 1330 Azithromycin (Azithromycin) 250 Mg Tablet, 250 MG PO UD Prescribed by: MIKAEL FRIEND on 10/02/21 1612 Cetirizine HCl (Cetirizine HCl) 10 Mg Tablet, 10 MG PO DAILY, (Reported) Entered as Reported by: JAMIL CHAN on 08/25/21 1239 Fluticasone/Salmeterol (Advair 500-50 Diskus) 1 Each Blst.w.dev, 1 EACH IH BID PRN for SHORTNESS OF BREATH, (Reported) Entered as Reported by: JAMIL CHAN on 08/25/21 1241 Levothyroxine Sodium (Levothyroxine Sodium) 137 Mcg Tablet, 137 MCG PO DAILY, (Reported) Entered as Reported by: JAMIL CHAN on 08/25/21 1239 Metoprolol Succinate (Metoprolol Succinate) 25 Mg Tab.er.24h, 25 MG PO DAILY, (R eported) Entered as Reported by: JAMIL CHAN on 08/25/21 1239 Montelukast Sodium (Montelukast Sodium) 10 Mg Tablet, 10 MG PO DAILY, (Reported) Entered as Reported by: JAMIL CHAN on 08/25/21 1239 Pantoprazole Sodium (Pantoprazole Sodium) 40 Mg Tablet.dr, 40 MG PO DAILY Prescribed by: EDITH BARILLAS on 08/25/21 1330 Prednisone (Prednisone) 50 Mg Tab, 50 MG PO DAILY Prescribed by: MIKAEL FRIEND on 10/02/21 1612 Review of Systems Review of Systems Constitutional: No diaphoresis, No dizziness, No fever, No weakness EENTM: No Blurred Vision, No Double Vision Respiratory: Denies Cough, Denies Orthopnea, Denies Shortness of Air, Denies SOA With Exertion Cardiovascular: See HPI Gastrointestinal: See HPI Genitourinary: No Symptoms Reported Past Mcivggu-Ajywhx-Duwvnv Hx Patient Social History Tobacco Use?: No Substance use?: No Alcohol Use?: No Immunizations Up To Date Tetanus Booster (TDap): Less than 5yrs PED Vaccines UTD: Yes Influenza Vaccine Up-to-Date: Yes; Up-to-Date First/Initial COVID19 Vaccinat: 2020 Second COVID19 Vaccination Elian: 2020 Third COVID19 Vaccination Date: 2020 Seasonal Allergies Seasonal Allergies: No Past Medical History Surgery/Hospitalization HX: COPD, hypothyroid, CHRONIC CP Surgeries: Yes (HEART CATH 2011) Cardiac Respiratory: Yes Sleep Apnea, COPD Currently Using CPAP: Yes Currently Using BIPAP: No Cardiac: Yes Hypertension Neurological: No Reproductive Disorders: No Genitourinary: No Gastrointestinal: No Musculoskeletal: No Endocrine: Yes Hypothyroidsim HEENT: No Cancer: No Psychosocial: Yes Anxiety Integumentary: No Blood Disorders: No Family Medical History Heart Disease Physical Exam Vital Signs Vital Signs - First Documented 10/05/21 14:51 Pulse 77 Resp 16 B/P (MAP) 159/104 (122) Pulse Ox 98 O2 Delivery Room Air Capillary Refill : Height, Weight, BMI Height: 5'9.00" Weight: 210lbs. 0oz. 95.416839bz; 34.00 BMI Method:Stated General Appearance: No Apparent Distress, WD/WN HEENT: PERRL/EOMI, Normal ENT Inspection, Pharynx Normal, Moist Mucous Membranes Neck: Full Range of Motion, Normal Inspection, Non Tender, Supple Respiratory: Lungs Clear, Normal Breath Sounds, No Accessory Muscle Use, No Respiratory Distress Cardiovascular: Regular Rate, Rhythm, Normal Peripheral Pulses Gastrointestinal: Normal Bowel Sounds, Non Tender, Soft Extremity: Normal Capillary Refill, Normal Range of Motion Neurologic/Psychiatric: Alert, Oriented x3, No Motor/Sensory Deficits, Normal Mood/Affect Skin: Normal Color, Warm/Dry Progress/Results/Core Measures Results/Orders Lab Results Laboratory Tests Test 10/05/21 16:00 10/05/21 17:30 Range/Units White Blood Count 14.0 H 4.3-11.0 10^3/uL Red Blood Count 5.19 4.30-5.52 10^6/uL Hemoglobin 14.7 13.3-17.7 g/dL Hematocrit 47 40-54 % Mean Corpuscular Volume 91 80-99 fL Mean Corpuscular Hemoglobin 28 25-34 pg Mean Corpuscular Hemoglobin Concent 31 L 32-36 g/dL Red Cell Distribution Width 13.0 10.0-14.5 % Platelet Count 276 130-400 10^3/uL Mean Platelet Volume 10.1 9.0-12.2 fL Immature Granulocyte % (Auto) 0 % Neutrophils (%) (Auto) 88 H 42-75 % Lymphocytes (%) (Auto) 9 L 12-44 % Monocytes (%) (Auto) 2 0-12 % Eosinophils (%) (Auto) 0 0-10 % Basophils (%) (Auto) 0 0-10 % Neutrophils # (Auto) 12.3 H 1.8-7.8 10^3/uL Lymphocytes # (Auto) 1.3 1.0-4.0 10^3/uL Monocytes # (Auto) 0.3 0.0-1.0 10^3/uL Eosinophils # (Auto) 0.0 0.0-0.3 10^3/uL Basophils # (Auto) 0.0 0.0-0.1 10^3/uL Immature Granulocyte # (Auto) 0.0 0.0-0.1 10^3/uL Neutrophils % (Manual) 85 % Lymphocytes % (Manual) 10 % Monocytes % (Manual) 5 % Blood Morphology Comment NORMAL Prothrombin Time 12.4 12.2-14.7 SEC INR Comment 0.9 0.8-1.4 Activated Partial Thromboplast Time 27 24-35 SEC D-Dimer 0.45 0.00-0.49 UG/ML Sodium Level 138 135-145 MMOL/L Potassium Level 4.8 3.6-5.0 MMOL/L Chloride Level 102 98-107 MMOL/L Carbon Dioxide Level 20 L 21-32 MMOL/L Anion Gap 16 H 5-14 MMOL/L Blood Urea Nitrogen 13 7-18 MG/DL Creatinine 0.85 0.60-1.30 MG/DL Estimat Glomerular Filtration Rate 112 BUN/Creatinine Ratio 15 Glucose Level 96 70-105 MG/DL Calcium Level 10.1 8.5-10.1 MG/DL Corrected Calcium 8.5-10.1 MG/DL Magnesium Level 2.2 1.6-2.4 MG/DL Total Bilirubin 0.5 0.1-1.0 MG/DL Aspartate Amino Transf (AST/SGOT) 24 5-34 U/L Alanine Aminotransferase (ALT/SGPT) 35 0-55 U/L Alkaline Phosphatase 111 40-136 U/L Creatine Kinase MB 2.3 <6.6 NG/ML Myoglobin 35.5 10.0-92.0 NG/ML Troponin I < 0.028 <0.028 NG/ML C-Reactive Protein High Sensitivity 0.14 0.00-0.50 MG/DL B-Type Natriuretic Peptide 35.0 <100.0 PG/ML Total Protein 8.9 H 6.4-8.2 GM/DL Albumin 4.7 H 3.2-4.5 GM/DL Erythrocyte Sedimentation Rate 15 0-15 MM/HR My Orders Orders - GOLD AGUAYO ENGINEERING TECHNICAL ANALYST Cbc With Automated Diff (10/05/21 15:08) Magnesium (10/05/21 15:08) Chest 1 View, Ap/Pa Only (10/05/21 15:08) Comprehensive Metabolic Panel (10/05/21 15:08) Myoglobin Serum (10/05/21 15:08) Protime With Inr (10/05/21 15:08) Partial Thromboplastin Time (10/05/21 15:08) O2 (10/05/21 15:08) Monitor-Rhythm Ecg Trace Only (10/05/21 15:08) Ed Iv/Invasive Line Start (10/05/21 15:08) Creatine Kinase Mb (10/05/21 15:08) Bnp [place] (10/05/21 15:08) Fibrin Degradation Products (10/05/21 15:08) Troponin I [place] (10/05/21 15:08) Hs C Reactive Protein (10/05/21 15:08) Erythrocyte Sedimentation Rate (10/05/21 15:08) Morphine Injection (Morphine Injection (10/05/21 15:32) Manual Differential (10/05/21 16:00) Vital Signs/I&O 10/05/21 10/05/21 14:51 18:36 Pulse 77 Resp 16 B/P (MAP) 159/104 (122) Pulse Ox 98 98 O2 Delivery Room Air Room Air Blood Pressure Mean: 122 Progress Progress Note : Progress Note Patient examined and in no acute distress. Has chronic recurrent chest pain. Has been followed with cardiology and had recent nuclear stress test in August of 2021 which showed results of normal myocardial perfusion in all segments without evidence of infarction or ischemia. There was no evidence of transient ischemic dilatation. Was evaluated and treated on 09/30/21 for same complaint and had thorough cardiac workup which showed no acute cardiac pathology. Will repeat cardiac workup today and add D-dimer to evaluate for PE. Cardiac workup today normal, D-Dimer within normal limits, he slept through most of ED course. Patient requested work release note for remainder of week at time of discharge. Discharge POC reviewed and he is agreeable with plan. Initial ECG Impression Date: Oct 05, 2021 Initial ECG Impression Time: 15:25 Initial ECG Rate: 78 Initial ECG Rhythm: Normal Sinus Initial ECG Impression: Normal Initial ECG Comparisson: Unchanged Diagnostic Imaging Diagonstic Imaging: Xray Plain Films/CT/US/NM/MRI: chest Comments [facility]. [place], [place] NAME: EARNESTINE [facility] REC#: [id number] PT STATUS: REG ER : 1980 PHYSICIAN: GOLD AGUAYO ENGINEERING TECHNICAL ANALYST ADMIT DATE: 10/05/21/ER Signed Date of Exam:10/05/21 CHEST 1 VIEW, AP/PA ONLY INDICATION: Chest pain and shortness of breath. EXAMINATION: Frontal chest was obtained at 4:09 p.m. COMPARISON: 10/02/2021. Heart and mediastinal silhouette are normal in appearance. The lungs are clear. There is no pneumothorax or pleural fluid. IMPRESSION: Negative chest. Dictated by: Dictated on workstation # [id number] Dict: 10/05/21 1607 Trans: 10/05/21 1627 [facility] [id number] Interpreted by: MARISOL BARBOZA MD Electronically signed by: MARISOL BARBOZA MD 10/05/21 1627 Reviewed: Reviewed by Me Departure Impression Primary Impression: Chest wall pain Disposition: 01 HOME, SELF-CARE Condition: Stable Departure-Patient Inst. Decision time for Depature: 17:43 Referrals: [facility] [place] Primary Care Physician JOSE LUIS HAYDEN APRN (Family) Primary Care Physician Patient Instructions: Chest Pain Add. Discharge Instructions: Plan: 1. Rest. May take Tylenol as needed for pain. Continue your antibiotics as directed. 2. Follow up with Dr. Caldwell as previously directed. 3. May use ice/heat 20 minutes at a time for pain. 4. Follow up with your primary care provider as directed. 5. Return for any new, concerning, or worsening symptoms. All discharge instructions reviewed with patient and/or family. Voiced understanding. Work/School Note: Work Release Form Date Seen in the Emergency Department: Oct 05, 2021 Return to Work: October 10, 2021 Restrictions: No Restrictions GOLD AGUAYO ENGINEERING TECHNICAL ANALYST Oct 05, 2021 15:29
[2021-10-05] MEDS ORDERED: morphine INJ 10 MG/ML 1ML (SYR OR VIAL) IVP STA (15:32)
[2021-10-05 16:08] LABS: BASOPHILS % (AUTO) 0 % (0-10); EOSINOPHILS % (AUTO) 0 % (0-10); HEMATOCRIT 47 % (40-54); HEMOGLOBIN 14.7 g/dL (13.3-17.7); LYMPHOCYTES # (AUTO) 1.3 10^3/uL (1.0-4.0); LYMPHOCYTES % (AUTO) 9 % (12-44); MEAN CORPUSCULAR HEMOGLOBIN 28 pg (25-34); MEAN CORPUSCULAR HGB CONC 31 g/dL (32-36); MEAN CORPUSCULAR VOLUME 91 fL (80-99); MEAN PLATELET VOLUME 10.1 fL (9.0-12.2); MONOCYTES # (AUTO) 0.3 10^3/uL (0.0-1.0); MONOCYTES % (AUTO) 2 % (0-12); NEUTROPHILS # (AUTO) 12.3 10^3/uL (1.8-7.8); NEUTROPHILS % (AUTO) 88 % (42-75); PLATELET COUNT 276 10^3/uL (130-400)
--- NOTE | 2021-10-05 16:09 | Diagnostic Imaging Report ---
INDICATION: Chest pain and shortness of breath. EXAMINATION: Frontal chest was obtained at 4:09 p.m. COMPARISON: 10/02/2021. Heart and mediastinal silhouette are normal in appearance. The lungs are clear. There is no pneumothorax or pleural fluid. IMPRESSION: Negative chest. Dictated by: Dictated on workstation # [id number]
[2021-10-05 16:15] LABS: ALBUMIN 4.7 GM/DL (3.2-4.5); CHLORIDE 102 MMOL/L (98-107); POTASSIUM 4.8 MMOL/L (3.6-5.0); SODIUM 138 MMOL/L (135-145)
[2021-10-05 16:17] LABS: CALCIUM 10.1 MG/DL (8.5-10.1)
[2021-10-05 16:18] LABS: GLUCOSE 96 MG/DL (70-105); TOTAL PROTEIN 8.9 GM/DL (6.4-8.2)
[2021-10-05 16:19] LABS: CARBON DIOXIDE 20 MMOL/L (21-32)
[2021-10-05 16:20] LABS: BILIRUBIN,TOTAL 0.5 MG/DL (0.1-1.0)
[2021-10-05 16:21] LABS: ALKALINE PHOSPHATASE 111 U/L (40-136); CREATININE SERUM 0.85 MG/DL (0.60-1.30); GFR ESTIMATED 112
[2021-10-05 16:22] LABS: BUN/CREATININE RATIO 15
[2021-10-05 16:24] LABS: ALANINE AMINOTRANSFERASE 35 U/L (0-55); MAGNESIUM 2.2 MG/DL (1.6-2.4)
[2021-10-05 16:32] LABS: CREATINE KINASE MB 2.3 NG/ML (<6.6)
[2021-10-05 16:44] LABS: LYMPHOCYTES % (MANUAL) 10 %; MONOCYTES % (MANUAL) 5 %; NEUTROPHILS % (MANUAL) 85 %; RBC MORPH NORMAL
[2021-10-05 16:48] LABS: INR 0.9 (0.8-1.4); PROTHROMBIN TIME PATIENT 12.4 SEC (12.2-14.7)
== END 2021-10-05 18:36 | disposition home or self-care (01) ==
LOC: EDUNIT# 14:46 → ER 14:47
DX: R07.89 Other chest pain (principal)
CPT/HCPCS: 36415; 71045; 80053; 82553; 83735; 83874; 83880; 84484; 85007; 85027; 85379; 85610; 85652; 85730; 86141; 93005; 93041

== ENCOUNTER 2021-10-18 00:15 | Emergency (ER) | payer SELFPAY ==
[~2021-10-18] VITALS: Ht 175.2 cm; Wt 110.3 kg
[2021-10-18] MEDS ORDERED: ONDANSETRON 4 MG/2 ML (SDV) Z0FRAN IVP ONE (00:30)
[2021-10-18] MEDS ORDERED: ANTACID SUSP 30 ML UDC (MYLANTA) PO ONE (00:30)
[2021-10-18] MEDS ORDERED: LIDOCAINE 2% VISCOUS 15 ML UDC PO ONE (00:30)
[2021-10-18 00:41] LABS: BASOPHILS % (AUTO) 0 % (0-10); EOSINOPHILS # (AUTO) 0.9 10^3/uL (0.0-0.3); EOSINOPHILS % (AUTO) 8 % (0-10); HEMATOCRIT 41 % (40-54); HEMOGLOBIN 13.1 g/dL (13.3-17.7); LYMPHOCYTES # (AUTO) 0.8 10^3/uL (1.0-4.0); LYMPHOCYTES % (AUTO) 7 % (12-44); MEAN CORPUSCULAR HEMOGLOBIN 28 pg (25-34); MEAN CORPUSCULAR HGB CONC 32 g/dL (32-36); MEAN CORPUSCULAR VOLUME 88 fL (80-99); MEAN PLATELET VOLUME 10.3 fL (9.0-12.2); MONOCYTES # (AUTO) 0.6 10^3/uL (0.0-1.0); MONOCYTES % (AUTO) 5 % (0-12); NEUTROPHILS # (AUTO) 8.6 10^3/uL (1.8-7.8); NEUTROPHILS % (AUTO) 79 % (42-75); PLATELET COUNT 235 10^3/uL (130-400); WHITE BLOOD COUNT 10.9 10^3/uL (4.3-11.0)
[2021-10-18 00:48] LABS: ALBUMIN 3.8 GM/DL (3.2-4.5)
[2021-10-18 00:49] LABS: POTASSIUM 4.1 MMOL/L (3.6-5.0)
[2021-10-18 00:50] LABS: CALCIUM 8.7 MG/DL (8.5-10.1); INR 0.9 (0.8-1.4); PROTHROMBIN TIME PATIENT 12.6 SEC (12.2-14.7)
[2021-10-18 00:53] LABS: BILIRUBIN,TOTAL 0.8 MG/DL (0.1-1.0)
[2021-10-18 00:55] LABS: CREATININE SERUM 0.79 MG/DL (0.60-1.30)
[2021-10-18 00:58] LABS: MAGNESIUM 1.5 MG/DL (1.6-2.4)
[2021-10-18 00:59] LABS: LIPASE 26 U/L (8-78)
[2021-10-18] MEDS ORDERED: PROMETHAZINE INJ 25 MG/ML (PHENERGAN) AMP IVP ONE (01:30)
--- NOTE | 2021-10-18 01:34 | ED Chest Pain ---
General Chief Complaint: Chest Wall Stated Complaint: CP Nursing Triage Note: CHEST PAIN OFF AND ON SINCE 1430. PT STATES THAT HE CALLED DR. HO OFFICE THIS AFTERNOON AND THEY TOLD HIM IF HE WAS HAVING PAIN TO GO TO ER. PT STATES THAT TONIGHT IT GOT WORSE. PAIN IS WORSE WITH DEEP BREATH. Source: patient, old records Exam Limitations: no limitations History of Present Illness Date Seen by Provider: October 18, 2021 Time Seen by Provider: 00:17 Initial Comments This 41-year-old gentleman presents to the emergency room via EMS with complaints of sharp chest pain that started around 1500 this afternoon. It is sometimes worse with a deep breath. He woke this morning not feeling well and called Dr. Cisneros's office. He was advised to come to the ER if chest pain ensued according to his report. Patient states he vomited this afternoon around the time the chest pain started. He has history of numerous visits to the emergency room for chest pain, anxiety, and other issues. He had a stress test in August of this year that was unremarkable. He has notable epigastric t enderness on exam. He reports history of rectal bleeding in recent weeks. He reports this has been evaluated previously at [facility] with a rectal exam that was unremarkable. He has tentative follow-up anticipated with Dr. Caldwell to evaluate the rectal bleeding further. He did have some rectal discomfort this evening. He reports minimal cough without fever or chills which he attributes to the change in weather. EMS administered aspirin 324 mg and nitroglycerin. Patient reports his pain improved from 6/10 down to 5/10 with the nitroglycerin. Allergies and Home Medications Allergies Coded Allergies: No Known Drug Allergies (Unverified , 05/04/11) Patient Home Medication List Home Medication List Reviewed: Yes Albuterol Sulfate (Albuterol Sulfate) 2.5 Mg/0.5 Ml Vial.neb, 2.5 MG INH Q6H PRN for SHORTNESS OF BREATH, (Reported) Entered as Reported by: JAMIL CHAN on 08/25/21 1239 Albuterol Sulfate (Ventolin Hfa) 1 Puff Puff, 2 PUFF INH Q4H PRN for SHORTNESS OF BREATH, (Reported) Entered as Reported by: JAMIL CHAN on 08/25/21 1239 Aspirin (Aspirin EC) 81 Mg Tablet., 81 MG PO DAILY Prescribed by: EDITH BARILLAS on 08/25/211329 Azithromycin (Azithromycin) 250 Mg Tablet, 250 MG PO UD Prescribed by: MIKAEL FRIEND on 10/02/21 1612 Cetirizine HCl (Cetirizine HCl) 10 Mg Tablet, 10 MG PO DAILY, (Reported) Entered as Reported by: JAMIL CHAN on 08/25/21 1239 Fluticasone/Salmeterol (Advair 500-50 Diskus) 1 Each Blst.w.dev, 1 EACH IH BID PRN for SHORTNESS OF BREATH, (Reported) Entered as Reported by: JAMIL CHAN on 08/25/21 1241 Levothyroxine Sodium (Levothyroxine Sodium) 137 Mcg Tablet, 137 MCG PO DAILY, (Reported) Entered as Reported by: JAMIL CHAN on 08/25/21 1239 Metoprolol Succinate (Metoprolol Succinate) 25 Mg Tab.er.24h, 25 MG PO DAILY, (Reported) Entered as Reported by: JAMIL CHAN on 08/25/21 1239 Montelukast Sodium (Montelukast Sodium) 10 Mg Tablet, 10 MG PO DAILY, (Reported) Entered as Reported by: JAMIL CHAN on 08/25/21 1239 Ondansetron (Ondansetron Odt) 4 Mg Tab.rapdis, 4 MG SL Q4H PRN for NAUSEA/VOMITING Prescribed by: EARNESTINE WILKERSON on 10/18/21219 Pantoprazole Sodium (Pantoprazole Sodium) 40 Mg Tablet.dr, 40 MG PO DAILY Prescribed by: EDITH BARILLAS on 08/25/211329 Pantoprazole Sodium (Protonix) 40 Mg Tablet.dr, 40 MG PO DAILY Prescribed by: EARNESTINE WILKERSON on 10/18/21219 Prednisone (Prednisone) 50 Mg Tab, 50 MG PO DAILY Prescribed by: MIKAEL FRIEND on 10/02/21 161 Review of Systems Review of Systems Constitutional: see HPI EENTM: No Symptoms Reported Respiratory: See HPI Cardiovascular: See HPI Gastrointestinal: See HPI Genitourinary: No Symptoms Reported Musculoskeletal: no symptoms reported Skin: no symptoms reported Psychiatric/Neurological: Anxiety Endocrine: No Symptoms Reported Hematologic/Lymphatic: No Symptoms Reported Past Zcngpjf-Ypeajr-Xwbbyp Hx Patient Social History Tobacco Use?: No Use of E-Cig and/or Vaping dev: No Substance use?: No Alcohol Use?: Yes Alcohol type: Beer, Hard Liquor Alcohol Frequency: Several times a month Pt feels they are or have been: No Immunizations Up To Date Tetanus Booster (TDap): Less than 5yrs PED Vaccines UTD: Yes Influenza Vaccine Up-to-Date: Yes; Up-to-Date First/Initial COVID19 Vaccinat: 2020 Second COVID19 Vaccination Elian: 2020 Third COVID19 Vaccination Date: 2020 Seasonal Allergies Seasonal Allergies: No Past Medical History Surgery/Hospitalization HX: COPD, hypothyroid, CHRONIC CP Surgeries: Yes (HEART CATH 2011) Cardiac Respiratory: Yes (COVID-19 infection 2020) Asthma, Sleep Apnea, COPD Currently Using CPAP: Yes Currently Using BIPAP: No Cardiac: Yes Hypertension Neurological: No Reproductive Disorders: No Genitourinary: No Gastrointestinal: No Musculoskeletal: No Endocrine: Yes Hypothyroidsim HEENT: No Cancer: No Psychosocial: Yes Anxiety Integumentary: No Blood Disorders: No Family Medical History Heart Disease Physical Exam Vital Signs Vital Signs - First Documented 10/18/21 00:23 Temp 36.3 Pulse 104 Resp 16 B/P (MAP) 128/79 (95) Pulse Ox 95 O2 Delivery Room Air Capillary Refill : Less Than 3 Seconds Height, Weight, BMI Height: 5'9.00" Weight: 210lbs. 0oz. 95.500566ur; 35.00 BMI Method:Stated General Appearance: WD/WN, Anxious HEENT: PERRL/EOMI, Normal ENT Inspection Neck: Normal Inspection; No JVD Respiratory: Lungs Clear, Normal Breath Sounds, No Accessory Muscle Use, No Respiratory Distress Cardiovascular: Regular Rate, Rhythm, No Edema, No Murmur Gastrointestinal: Normal Bowel Sounds, Soft; No Distended; Tenderness (Epigastrium) Extremity: Normal Inspection, No Pedal Edema Neurologic/Psychiatric: Alert, Oriented x3, No Motor/Sensory Deficits, cellophaner II- XII Norm as Tested, Other (Mildly anxious) Skin: Normal Color, Warm/Dry Progress/Results/Core Measures Results/Orders Lab Results Laboratory Tests Test 10/18/21 00:19 Range/Units White Blood Count 10.9 4.3-11.0 10^3/uL Red Blood Count 4.66 4.30-5.52 10^6/uL Hemoglobin 13.1 L 13.3-17.7 g/dL Hematocrit 41 40-54 % Mean Corpuscular Volume 88 80-99 fL Mean Corpuscular Hemoglobin 28 25-34 pg Mean Corpuscular Hemoglobin Concent 32 32-36 g/dL Red Cell Distribution Width 13.2 10.0-14.5 % Platelet Count 235 130-400 10^3/uL Mean Platelet Volume 10.3 9.0-12.2 fL Immature Granulocyte % (Auto) 0 % Neutrophils (%) (Auto) 79 H 42-75 % Lymphocytes (%) (Auto) 7 L 12-44 % Monocytes (%) (Auto) 5 0-12 % Eosinophils (%) (Auto) 8 0-10 % Basophils (%) (Auto) 0 0-10 % Neutrophils # (Auto) 8.6 H 1.8-7.8 10^3/uL Lymphocytes # (Auto) 0.8 L 1.0-4.0 10^3/uL Monocytes # (Auto) 0.6 0.0-1.0 10^3/uL Eosinophils # (Auto) 0.9 H 0.0-0.3 10^3/uL Basophils # (Auto) 0.0 0.0-0.1 10^3/uL Immature Granulocyte # (Auto) 0.0 0.0-0.1 10^3/uL Prothrombin Time 12.6 12.2-14.7 SEC INR Comment 0.9 0.8-1.4 Activated Partial Thromboplast Time 31 24-35 SEC Sodium Level 135 135-145 MMOL/L Potassium Level 4.1 3.6-5.0 MMOL/L Chloride Level 104 98-107 MMOL/L Carbon Dioxide Level 21 21-32 MMOL/L Anion Gap 10 5-14 MMOL/L Blood Urea Nitrogen 12 7-18 MG/DL Creatinine 0.79 0.60-1.30 MG/DL Estimat Glomerular Filtration Rate 114 BUN/Creatinine Ratio 15 Glucose Level 103 70-105 MG/DL Calcium Level 8.7 8.5-10.1 MG/DL Corrected Calcium 8.9 8.5-10.1 MG/DL Magnesium Level 1.5 L 1.6-2.4 MG/DL Total Bilirubin 0.8 0.1-1.0 MG/DL Aspartate Amino Transf (AST/SGOT) 16 5-34 U/L Alanine Aminotransferase (ALT/SGPT) 23 0-55 U/L Alkaline Phosphatase 103 40-136 U/L Myoglobin 32.7 10.0-92.0 NG/ML Troponin I < 0.028 <0.028 NG/ML C-Reactive Protein High Sensitivity 0.87 H 0.00-0.50 MG/DL Total Protein 7.0 6.4-8.2 GM/DL Albumin 3.8 3.2-4.5 GM/DL Lipase 26 8-78 U/L My Orders Orders - EARNESTINE LEIVA MD Ekg Tracing (10/18/21:19) Cbc With Automated Diff (10/18/21) Magnesium (10/18/21) Ekg Tracing (10/18/21) Comprehensive Metabolic Panel (10/18/21) Myoglobin Serum (10/18/21) Protime With Inr (10/18/21) Partial Thromboplastin Time (10/18/21) O2 (10/18/21:) Monitor-Rhythm Ecg Trace Only (10/18/21) Ed Iv/Invasive Line Start (10/18/21) Troponin I [place] (10/18/21:) Hs C Reactive Protein (10/18/21:) Lidocaine 2% Viscous 15 Ml (Xylocaine Vi (10/18/21 00:30) Antacid Suspension (Mylanta Suspension (10/18/21 00:30) Ondansetron Injection (Zofran Injectio (10/18/21 00:30) Lipase (10/18/21 00:24) Chest Pa/Lat (2 View) (10/18/21 01:09) Abdomen, Flat & Upright/Decub (10/18/21 01:09) Promethazine Injection (Phenergan Injec (10/18/21 01:30) Pantoprazole Tablet (Protonix Tablet) (10/18/21 02:30) Medications Given in ED Current Medications Medications Dose Ordered Sig/Anatoly Route Start Time Stop Time Status Last Admin Dose Admin Al Hydrox/Mg Hydrox/Simethicone 30 ml ONCE ONCE PO 5/10/22 00:30 10/18/21 00:31 DC 10/18/21 00:41 30 ML Lidocaine HCl 15 ml ONCE ONCE PO 10/18/21 00:30 10/18/21 00:31 DC 10/18/21 00:41 15 ML Ondansetron HCl 8 mg ONCE ONCE IVP 10/18/21 00:30 10/18/21 00:31 DC 10/18/21 00:41 8 MG Pantoprazole Sodium 40 mg ONCE ONCE PO 10/18/21 02:30 10/18/21 02:31 DC 10/18/21 02:39 40 MG Promethazine HCl 12.5 mg ONCE ONCE IVP 10/18/21 01:30 10/18/21 01:31 DC 10/18/21 01:54 12.5 MG Vital Signs/I&O 10/18/21 10/18/21 10/18/21 00:23 00:29 02:25 Temp 36.3 Pulse 104 86 Resp 16 18 B/P (MAP) 128/79 (95) 134/87 Pulse Ox 95 95 99 O2 Delivery Room Air Room Air Room Air Blood Pressure Mean: 95 Progress Progress Note : Progress Note Cardiopulmonary work-up was unremarkable. GI cocktail further improved his pain from 5/10 down to 3.5/10. Pain seems to be of upper GI origin. He had been prescribed Protonix in the past but is no longer taking it. A dose of Protonix was given prior to discharge and it was again prescribed. See discharge instructions for further discussion. Initial ECG Impression Date: October 18, 2021 Initial ECG Impression Time: 00:22 Initial ECG Rate: 98 Initial ECG Rhythm: Normal Sinus Initial ECG Intervals: Normal Initial ECG Impression: Normal Comment Normal sinus rhythm with no ST elevation or depression. No abnormal intervals or axis deviation. Diagnostic Imaging Diagonstic Imaging: Xray Plain Films/CT/US/NM/MRI: abdomen, pelvis Comments KUB and upright x-rays viewed by me. Reports not yet available. There was a nonspecific bowel gas pattern and no acute abnormalities were appreciated. Diagonstic Imaging: Xray Plain Films/CT/US/NM/MRI: chest Comments 2 view chest x-ray viewed by me. Report not yet available. No acute abnormalities were appreciated when compared with prior. Departure Impression Primary Impression: Atypical chest pain Additional Impressions: Epigastric pain Nausea & vomiting Qualified Codes: R11.2 - Nausea with vomiting, unspecified Disposition: 01 HOME, SELF-CARE Condition: Improved Departure-Patient Inst. Decision time for Depature: 02:19 Referrals: [facility] (PCP) Primary Care Physician JOSE LUIS HAYDEN APRN (Family) Primary Care Physician Patient Instructions: Abdominal Pain, Adult ED, Chest Pain That Is Not Caused by the Heart (DC) Add. Discharge Instructions: Start with a noncarbonated clear liquid diet, and gradually advance your diet with small quantities of bland food as tolerated. Restart Protonix (pantoprazole) as prescribed. You may use the Zofran (ondansetron) as prescribed for nausea and vomiting. Avoid the following: Eating large meals, eating close to bedtime, caffeine, carbonation, chocolate, citrus fruits and juices, tomato products, mints, alcohol, tobacco, NSAID medications such as ibuprofen or naproxen, fatty/greasy foods, spicy foods, or anything else you know irritate your stomach. Follow-up with your primary care provider soon as possible, and follow through with your referral to Dr. Caldwell soon as possible. Return to the ER if you have worsening symptoms. All discharge instructions reviewed with patient and/or family. Voiced understanding. Scripts Pantoprazole Sodium (Protonix) 40 Mg Tablet. 40 MG PO DAILY, #30 TAB Prov: EARNESTINE LEIVA MD 10/18/21 Ondansetron (Ondansetron Odt) 4 Mg Tab.rapdis 4 MG SL Q4H PRN for NAUSEA/VOMITING, #10 TAB Prov: EARNESTINE LEIVA MD 10/18/21 Work/School Note: Work Release Form Date Seen in the Emergency Department: October 18, 2021 Return to Work: October 19, 2021 Restrictions: Return-No Vomiting(24hrs) Copy Copies To 1: CHINA CISNEROS MD Copies To 2: [facility]/EARNESTINE CAMPBELL MD October 18, 2021 01:34
[2021-10-18] MEDS ORDERED: PANT40TA2 PO (02:20)
[2021-10-18] MEDS ORDERED: ONDA4TAB11 SL (02:20)
[2021-10-18 02:25] VITALS: BP 134/87
[2021-10-18] MEDS ORDERED: PANTOPRAZOLE 40 MG (PROTONIX) TAB PO ONE (02:30)
--- NOTE | 2021-10-18 05:16 | Diagnostic Imaging Report ---
INDICATION: Chest pain. Comparison is made with prior examination of 08/24/2021. FINDINGS: The heart size, mediastinal configuration, and pulmonary vascularity are within normal limits. There is no pleural effusion, pneumothorax, or pneumonia. The osseous structures are unremarkable. IMPRESSION: No acute cardiopulmonary abnormality. Dictated by: Dictated on workstation # [id number]
--- NOTE | 2021-10-18 05:37 | Diagnostic Imaging Report ---
INDICATION: Abdominal pain. FINDINGS: The lung bases are clear. The bowel gas pattern is nonspecific. There is no free air. There are no abnormal abdominal calcifications. The osseous structures are unremarkable. IMPRESSION: Nonspecific bowel gas pattern Dictated by: Dictated on workstation # [id number]
== END 2021-10-18 02:41 | disposition home or self-care (01) ==
LOC: EDUNIT# 00:15 → ER 00:17
DX: R07.89 Other chest pain (principal); R11.2 Nausea with vomiting, unspecified; R10.13 Epigastric pain; G47.30 Sleep apnea, unspecified; Z99.89 Dependence on other enabling machines and devices; Z86.16 Personal history of COVID-19
CPT/HCPCS: 36415; 71046; 74019; 80053; 83690; 83735; 83874; 84484; 85025; 85610; 85730; 86141; 93005; 93041

== ENCOUNTER 2021-11-03 16:12 | Emergency (ER) | payer OTHER ==
[~2021-11-03 16:12] MED LIST changes: +ONDA4TAB11 SL; +PANT40TA2 PO
[2021-11-03] MEDS ORDERED: ANTACID SUSP 30 ML UDC (MYLANTA) PO ONE (16:30)
[2021-11-03] MEDS ORDERED: LIDOCAINE 2% VISCOUS 15 ML UDC PO ONE (16:30)
[2021-11-03] MEDS ORDERED: ONDANSETRON 4 MG/2 ML (SDV) Z0FRAN IVP ONE (16:30)
--- NOTE | 2021-11-03 16:35 | ED Cardiac General ---
History of Present Illness General Chief Complaint: Cardiac/General Problems Stated Complaint: CHEST PAIN, STOMACH PAIN Nursing Triage Note: PT AMB TO [facility] 6 WITH C/O CP ON AND OFF SINCE 0200 AND DRY HEAVES AND STOMACH CRAMPS SINCE ABOUT 0300. PT SAID HE TOOK NITRO X2 THIS MORNING Source: patient Exam Limitations: no limitations (JOSE LICEA) History of Present Illness Date Seen by Provider: November 03, 2021 Time Seen by Provider: 16:32 Initial Comments Patient is a 41-year-old male who presents ED with right-sided chest pain. Described as sharp started early this morning around 2:00. Took his sublingual nitro with resolution of chest pain. Pain has been intermittent without radiation. Mild cough and shortness of breath since this morning. States he has had a history of similar type chest pain in the past. He had a stress test performed in August that was unremarkable. States he has not eaten today. Some times eating makes pain worse. Was seen here on October 18 and was discharged with Protonix which she has been taking. He reports some upper stomach cramping without radiation. Reports dry heaving without vomiting or diarrhea. Denies of any fever, headache, visual changes, neck pain, unilateral muscle weakness or sensory changes. No recent travels or surgeries. (JOSE LICEA) Allergies and Home Medications Allergies Coded Allergies: No Known Drug Allergies (Unverified , 05/04/11) Patient Home Medication List Home Medication List Reviewed: Yes (JOSE LICEA) Albuterol Sulfate (Albuterol Sulfate) 2.5 Mg/0.5 Ml Vial.neb, 2.5 MG INH Q6H PRN for SHORTNESS OF BREATH, (Reported) Entered as Reported by: JAMIL CHAN on 08/25/21 1239 Albuterol Sulfate (Ventolin Hfa) 1 Puff Puff, 2 PUFF INH Q4H PRN for SHORTNESS OF BREATH, (Reported) Entered as Reported by: JAMIL CHAN on 08/25/21 1239 Aspirin (Aspirin EC) 81 Mg Tablet.dr, 81 MG PO DAILY Prescribed by: EDITH BARILLAS on 08/25/21 1330 Azithromycin (Azithromycin) 250 Mg Tablet, 250 MG PO UD Prescribed by: MIKAEL FRIEND on 10/02/21 1612 Cetirizine HCl (Cetirizine HCl) 10 Mg Tablet, 10 MG PO DAILY, (Reported) Entered as Reported by: JAMIL CHAN on 08/25/21 1239 Fluticasone/Salmeterol (Advair 500-50 Diskus) 1 Each Blst.w.dev, 1 EACH IH BID PRN for SHORTNESS OF BREATH, (Reported) Entered as Reported by: JAMIL CHAN on 08/25/21 1241 Levothyroxine Sodium (Levothyroxine Sodium) 137 Mcg Tablet, 137 MCG PO DAILY, (Reported) Entered as Reported by: JAMIL CHAN on 08/25/21 1239 Metoprolol Succinate (Metoprolol Succinate) 25 Mg Tab.er.24h, 25 MG PO DAILY, (Reported) Entered as Reported by: JAMIL CHAN on 08/25/21 1239 Montelukast Sodium (Montelukast Sodium) 10 Mg Tablet, 10 MG PO DAILY, (Reported) Entered as Reported by: JAMIL CHAN on 08/25/21 1239 Ondansetron (Ondansetron Odt) 4 Mg Tab.rapdis, 4 MG SL Q4H PRN for NAUSEA/VOMITING Prescribed by: EARNESTINE WILKERSON on 10/18/21 0220 Pantoprazole Sodium (Pantoprazole Sodium) 40 Mg Tablet.dr, 40 MG PO DAILY Prescribed by: EDITH BARILLAS on 08/25/21 1330 Pantoprazole Sodium (Protonix) 40 Mg Tablet.dr, 40 MG PO DAILY Prescribed by: EARNESTINE WILKERSON on 10/18/21 0220 Prednisone (Prednisone) 50 Mg Tab, 50 MG PO DAILY Prescribed by: MIKAEL FRIEND on 10/02/21 1612 Review of Systems Review of Systems Constitutional: No chills, No diaphoresis, No fever, No malaise, No weakness EENTM: No Double Vision, No Ear Pain, No Mouth Pain Respiratory: Cough, Shortness of Air Cardiovascular: Chest Pain Gastrointestinal: Abdominal Pain; Denies Diarrhea; Nausea; Denies Vomiting Genitourinary: Denies Burning, Denies Discharge Musculoskeletal: No back pain, No joint pain Skin: No change in color, No change in hair/nails (JOSE LICEA) All Other Systems Reviewed Negative Unless Noted: Yes (JOSE LICEA) Past Deyifzv-Tydrug-Iofyvn Hx Patient Social History Tobacco Use?: No Use of E-Cig and/or Vaping dev: No Substance use?: No Alcohol Use?: No Pt feels they are or have been: No (JOSE ILCEA) Immunizations Up To Date Tetanus Booster (TDap): Less than 5yrs PED Vaccines UTD: Yes First/Initial COVID19 Vaccinat: 2020 Second COVID19 Vaccination Elian: 2020 Third COVID19 Vaccination Date: 2020 COVID19 Vaccine Reimbursement Specialist: SHIRA (JOSE LICEA) Seasonal Allergies Seasonal Allergies: No (JOSE LICEA) Past Medical History Surgery/Hospitalization HX: COPD, hypothyroid, CHRONIC CP Surgeries: Yes (HEART CATH 2011) Cardiac Respiratory: Yes (COVID-19 infection 2020) Asthma, Sleep Apnea, COPD Currently Using CPAP: Yes Currently Using BIPAP: No Cardiac: Yes Hypertension Neurological: No Reproductive Disorders: No Genitourinary: No Gastrointestinal: No Musculoskeletal: No Endocrine: Yes Hypothyroidsim HEENT: No Cancer: No Psychosocial: Yes Anxiety Integumentary: No Blood Disorders: No (JOSE LICEA) Family Medical History Heart Disease (JOSE LICEA) Physical Exam Vital Signs Vital Signs - First Documented 11/03/21 16:19 Temp 35.9 Pulse 88 Resp 16 B/P (MAP) 139/86 (103) (EARNESTINE LEIVA MD) Vital Signs Capillary Refill : (JOSE LICEA) Height, Weight, BMI Height: 5'9.00" Weight: 210lbs. 0oz. 95.441382tv; 35.00 BMI Method:Stated General Appearance: No Apparent Distress, WD/WN HEENT: PERRL/EOMI, TMs Normal, Normal ENT Inspection, Pharynx Normal Neck: Full Range of Motion, Normal Inspection, Non Tender, Supple Respiratory: Chest Non Tender, Lungs Clear, Normal Breath Sounds, No Accessory Muscle Use, No Respiratory Distress Cardiovascular: Regular Rate, Rhythm, No Edema, No Gallop, No JVD, No Murmur Gastrointestinal: Normal Bowel Sounds, No Organomegaly, No Pulsatile Mass, Soft, Tenderness (Epigastric tenderness.) Neurologic/Psychiatric: Alert, Oriented x3, No Motor/Sensory Deficits, kitchen aide II- XII Norm as Tested Skin: Normal Color (JOSE LICEA) Progress/Results/Core Measures Results/Orders Lab Results Laboratory Tests Test 11/03/21 16:40 11/03/21 16:55 Range/Units Influenza Type A (RT-PCR) Not Detected Not Detecte Influenza Type B (RT-PCR) Not Detected Not Detecte SARS-CoV-2 RNA (RT-PCR) Not Detected Not Detecte White Blood Count 14.8 H 4.3-11.0 10^3/uL Red Blood Count 4.88 4.30-5.52 10^6/uL Hemoglobin 13.6 13.3-17.7 g/dL Hematocrit 43 40-54 % Mean Corpuscular Volume 87 80-99 fL Mean Corpuscular Hemoglobin 28 25-34 pg Mean Corpuscular Hemoglobin Concent 32 32-36 g/dL Red Cell Distribution Width 13.1 10.0-14.5 % Platelet Count 276 130-400 10^3/uL Mean Platelet Volume 10.0 9.0-12.2 fL Immature Granulocyte % (Auto) 0 % Neutrophils (%) (Auto) 79 H 42-75 % Lymphocytes (%) (Auto) 14 12-44 % Monocytes (%) (Auto) 5 0-12 % Eosinophils (%) (Auto) 2 0-10 % Basophils (%) (Auto) 1 0-10 % Neutrophils # (Auto) 11.7 H 1.8-7.8 10^3/uL Lymphocytes # (Auto) 2.0 1.0-4.0 10^3/uL Monocytes # (Auto) 0.7 0.0-1.0 10^3/uL Eosinophils # (Auto) 0.3 0.0-0.3 10^3/uL Basophils # (Auto) 0.1 0.0-0.1 10^3/uL Immature Granulocyte # (Auto) 0.1 0.0-0.1 10^3/uL Neutrophils % (Manual) 74 % Lymphocytes % (Manual) 14 % Monocytes % (Manual) 8 % Eosinophils % (Manual) 4 % Blood Morphology Comment NORMAL Sodium Level 135 135-145 MMOL/L Potassium Level 3.9 3.6-5.0 MMOL/L Chloride Level 103 98-107 MMOL/L Carbon Dioxide Level 19 L 21-32 MMOL/L Anion Gap 13 5-14 MMOL/L Blood Urea Nitrogen 13 7-18 MG/DL Creatinine 0.79 0.60-1.30 MG/DL Estimat Glomerular Filtration Rate 114 BUN/Creatinine Ratio 16 Glucose Level 92 70-105 MG/DL Calcium Level 9.5 8.5-10.1 MG/DL Corrected Calcium 9.4 8.5-10.1 MG/DL Magnesium Level 1.6 1.6-2.4 MG/DL Total Bilirubin 0.9 0.1-1.0 MG/DL Aspartate Amino Transf (AST/SGOT) 20 5-34 U/L Alanine Aminotransferase (ALT/SGPT) 18 0-55 U/L Alkaline Phosphatase 96 40-136 U/L Troponin I < 0.028 <0.028 NG/ML Total Protein 8.0 6.4-8.2 GM/DL Albumin 4.1 3.2-4.5 GM/DL Lipase 15 8-78 U/L (EARNESTINE LEIVA MD) Medications Given in ED Current Medications Medications Dose Ordered Sig/Anatoly Route Start Time Stop Time Status Last Admin Dose Admin Acetaminophen/ Hydrocodone Bitart 1 ea ONCE ONCE PO 11/03/21 17:45 11/03/21 17:46 DC 11/03/21 17:47 1 EA Al Hydrox/Mg Hydrox/Simethicone 30 ml ONCE ONCE PO 11/03/21 16:30 11/03/21 16:32 DC 11/03/21 16:37 30 ML Lidocaine HCl 15 ml ONCE ONCE PO 11/03/21 16:30 11/03/21 16:32 DC 11/03/21 16:37 15 ML (EARNESTINE LEIVA MD) Vital Signs/I&O 11/03/21 11/03/21 16:19 17:51 Temp 35.9 35.9 Pulse 88 81 Resp 16 16 B/P (MAP) 139/86 (103) 130/90 (EARNESTINE LEIVA MD) Blood Pressure Mean: 103 Comment Sinus rhythm, 84 bpm, QRS duration 103 MS, QTc 418 MS (JOSE LICEA) Departure Communication (PCP) Patient is a 41-year-old male with a history of right-sided chest pain presents ED with right-sided chest pain epigastric cramping. Symptoms started this morning. He states he does not feel well. Took 1 dose of sublingual nitro at home with improvement. Similar intermittent sharp chest pain. EKG showed normal sinus rhythm. Chest x-ray was negative for pneumonia, pneumothorax. Normal troponin and cardiac work-up. slight elevated white blood count 14.7. Patient was given GI cocktail with improvement as well as morphine. Patient had a stress test in August by Dr. Cisneros that was otherwise reassuring without evidence of ischemia. Calculated ejection fraction 70%. Reassuring cardiac work-up. Patient was recommended to take Protonix last visit which she has been taking. Decreased appetite today. Patient states pain has improved. He is requesting to be discharged. Discussed with patient reassuring similar lab work. If any worsening symptoms return back to ED for further evaluation. Schedule follow-up with his primary care physician and Dr. Cisneros early next week. (JOSE LICEA) Impression Primary Impression: Chest pain Disposition: HOME, SELF-CARE Condition: Stable Departure-Patient Inst. Decision time for Depature: 17:43 (JOSE LICEA) Referrals: [facility] [place] (PCP) Primary Care Physician JOSE LUIS HAYDEN APRN (Family) Primary Care Physician Patient Instructions: Chest Pain Add. Discharge Instructions: Continue follow-up with your primary care physician and cardiology. All discharge instructions reviewed with patient and/or family. Voiced understanding. ATTENDING PHYSICIAN NOTE: I was physically present as attending physician in the emergency department during the care of this patient, but I was not directly involved in the decision making or delivery of care for this patient. (EARNESTINE LEIVA MD) JOSE LICEA November 03, 2021 16:35 EARNESTINE LEIVA MD November 03, 2021 22:02
[2021-11-03 17:01] LABS: BASOPHILS # (AUTO) 0.1 10^3/uL (0.0-0.1); BASOPHILS % (AUTO) 1 % (0-10); EOSINOPHILS # (AUTO) 0.3 10^3/uL (0.0-0.3); EOSINOPHILS % (AUTO) 2 % (0-10); HEMATOCRIT 43 % (40-54); HEMOGLOBIN 13.6 g/dL (13.3-17.7); LYMPHOCYTES % (AUTO) 14 % (12-44); MEAN CORPUSCULAR HEMOGLOBIN 28 pg (25-34); MEAN CORPUSCULAR HGB CONC 32 g/dL (32-36); MEAN CORPUSCULAR VOLUME 87 fL (80-99); MONOCYTES # (AUTO) 0.7 10^3/uL (0.0-1.0); MONOCYTES % (AUTO) 5 % (0-12); NEUTROPHILS # (AUTO) 11.7 10^3/uL (1.8-7.8); NEUTROPHILS % (AUTO) 79 % (42-75); PLATELET COUNT 276 10^3/uL (130-400); WHITE BLOOD COUNT 14.8 10^3/uL (4.3-11.0)
--- NOTE | 2021-11-03 17:03 | Diagnostic Imaging Report ---
EXAMINATION: Chest 1 view HISTORY: chest pain COMPARISON: 09/04/2021. FINDINGS: Heart size and pulmonary vasculature are normal. The lungs are clear without consolidation, pleural effusion, or pneumothorax. The osseous structures are intact. IMPRESSION: 1. No acute radiographic abnormality in the chest. Dictated by: Dictated on workstation # [id number]
[2021-11-03 17:20] LABS: ALBUMIN 4.1 GM/DL (3.2-4.5); CHLORIDE 103 MMOL/L (98-107); POTASSIUM 3.9 MMOL/L (3.6-5.0); SODIUM 135 MMOL/L (135-145)
[2021-11-03 17:21] LABS: CALCIUM 9.5 MG/DL (8.5-10.1); EOSINOPHILS % (MANUAL) 4 %; LYMPHOCYTES % (MANUAL) 14 %; MONOCYTES % (MANUAL) 8 %; NEUTROPHILS % (MANUAL) 74 %; RBC MORPH NORMAL
[2021-11-03 17:22] LABS: GLUCOSE 92 MG/DL (70-105)
[2021-11-03 17:24] LABS: BILIRUBIN,TOTAL 0.9 MG/DL (0.1-1.0); CARBON DIOXIDE 19 MMOL/L (21-32)
[2021-11-03 17:26] LABS: ALKALINE PHOSPHATASE 96 U/L (40-136); CREATININE SERUM 0.79 MG/DL (0.60-1.30); GFR ESTIMATED 114
[2021-11-03 17:27] LABS: BUN/CREATININE RATIO 16
[2021-11-03 17:29] LABS: ALANINE AMINOTRANSFERASE 18 U/L (0-55)
[2021-11-03 17:30] LABS: MAGNESIUM 1.6 MG/DL (1.6-2.4)
[2021-11-03 17:31] LABS: LIPASE 15 U/L (8-78)
[2021-11-03] MEDS ORDERED: HYDROcodone/APAP 5 MG/325 MG (LORTAB) TAB PO ONE (17:45)
[2021-11-03 17:51] VITALS: BP 130/90
== END 2021-11-03 17:52 | disposition home or self-care (01) ==
LOC: EDUNIT# 16:12 → ER 16:13
DX: R07.89 Other chest pain (principal); R10.13 Epigastric pain; G47.30 Sleep apnea, unspecified; Z99.89 Dependence on other enabling machines and devices; Z20.822 Contact with and (suspected) exposure to COVID-19
CPT/HCPCS: 36415; 71045; 80053; 83690; 83735; 84484; 85007; 85027; 87636; 93005

== ENCOUNTER 2021-11-23 05:38 | Outpatient (CLI) | payer SELFPAY ==
[~2021-11-23] VITALS: Ht 175.3 cm; Wt 108.9 kg
[2021-11-24] MEDS ORDERED: FLUT9.9S NS (09:45)
== END 2021-11-24 10:49 | disposition home or self-care (01) ==
LOC: PREOP 05:38
PROVIDERS: ATTEND Surgery
DX: Z01.818 Encounter for other preprocedural examination (principal)

== ENCOUNTER 2021-11-28 20:19 | Emergency (ER) | payer OTHER ==
[~2021-11-28] VITALS: Ht 175.2 cm; Wt 112.5 kg
[~2021-11-28 20:19] MED LIST changes: +FLUT9.9S NS
[2021-11-28] MEDS ORDERED: LACTATED RINGERS 1,000 ML IV ONE (20:30)
[2021-11-28] MEDS ORDERED: ONDANSETRON 4 MG/2 ML (SDV) Z0FRAN IVP ONE (20:30)
[2021-11-28] MEDS: NITROGLYCERIN 0.4 MG SL TABS BTL 25'S SL PRN ×2 (20:35→20:44)
[2021-11-28 20:36] LABS: BASOPHILS # (AUTO) 0.1 10^3/uL (0.0-0.1); BASOPHILS % (AUTO) 1 % (0-10); EOSINOPHILS # (AUTO) 1.1 10^3/uL (0.0-0.3); EOSINOPHILS % (AUTO) 11 % (0-10); HEMATOCRIT 40 % (40-54); HEMOGLOBIN 12.7 g/dL (13.3-17.7); LYMPHOCYTES # (AUTO) 2.3 10^3/uL (1.0-4.0); LYMPHOCYTES % (AUTO) 23 % (12-44); MEAN CORPUSCULAR HEMOGLOBIN 28 pg (25-34); MEAN CORPUSCULAR HGB CONC 32 g/dL (32-36); MEAN CORPUSCULAR VOLUME 88 fL (80-99); MEAN PLATELET VOLUME 9.8 fL (9.0-12.2); MONOCYTES # (AUTO) 0.7 10^3/uL (0.0-1.0); MONOCYTES % (AUTO) 8 % (0-12); NEUTROPHILS # (AUTO) 5.5 10^3/uL (1.8-7.8); NEUTROPHILS % (AUTO) 57 % (42-75); PLATELET COUNT 269 10^3/uL (130-400); WHITE BLOOD COUNT 9.6 10^3/uL (4.3-11.0)
[2021-11-28 20:52] LABS: INR 0.9 (0.8-1.4); PROTHROMBIN TIME PATIENT 12.8 SEC (12.2-14.7)
--- NOTE | 2021-11-28 20:58 | Diagnostic Imaging Report ---
INDICATION: Chest pain. EXAMINATION: Chest 11/28/2021 COMPARISON: 11/03/2021 FINDINGS: The cardiomediastinal silhouette is unremarkable. The pulmonary vasculature is within normal limits. The lungs and pleural spaces are clear. IMPRESSION: No evidence of an acute cardiopulmonary process. Dictated by: Dictated on workstation # [id number]
--- NOTE | 2021-11-28 21:02 | ED Chest Pain ---
General Chief Complaint: Chest Pain Stated Complaint: CHEST PAIN Nursing Triage Note: PT TO ROOM BY [facility]. EMS REPORTS PT HAD CHEST PAIN COME ON AT REST AND THAT PT WAS IN AND OUT OF THE HEAT TODAY. PT REPORTS TAKING 1 NITRO AT HOME WITH NO RELIEF. EMS REPORTS GIVING 4 ASA. PT ALSO REPORTS HAVING MULTIPLE EPISODES OF "DRY HEAVING" TODAY Source: patient, EMS, old records History of Present Illness Date Seen by Provider: Nov 28, 2021 Time Seen by Provider: 20:21 Initial Comments PT ARRIVES VIA EMS FROM HOME C/O MID CHEST PAIN--STATES PAIN BEGAN "EARLIER" STATES HE WAS SITTING IN THE HOUSE WHEN THE PAIN BEGAN RATES PAIN 10/10 EARLIER, TOOK NTG X 1--NO RELIEF. RATES PAIN 7/10 ON ARRIVAL. STATES PAIN IS A STABBING PAIN NO RADIATION OF PAIN NOTHING WORSENS OR IMPROVES PAIN STATES HE HAS HAD SOME NAUSEA AND VOMITING THE LAST COUPLE OF DAYS--HAS ACTUALLY ONLY HAD DRY HEAVES, NO ACTUAL VOMITING. NO DIARRHEA NO ABDOMINAL PAIN NO FEVER NO URINARY SYMPTOMS NO SWELLING IN LEGS/FEET OR PAIN IN CALVES NO SWEATS NO PALPITATIONS, DIZZINESS OR SYNCOPE NO CHANGE IN CHRONIC SHORTNESS OF BREATH--HAS COPD, AND USES PRO-AIR INHALER 8- 10 TIMES A DAY EVERY DAY STATES HE RAN [place] TODAY--WAS IN AND OUT OF HIS CAR SEVERAL TIMES TODAY, BUT NO PROLONGED EXPOSURE TO HEAT--HAS AC IN VEHICLE AND IN HOME. EMS GAVE 324 MG ASPIRIN PT HAS BEEN HERE A MULTITUDE OF TIMES FOR THIS SAME COMPLAINT--WORK UP'S HAVE BEEN NEGATIVE THIS IS PT'S 11TH VISIT IN 2021--WITH NEARLY ALL FOR THIS SAME COMPLAINT PT WANTS A WORK NOTE ON ARRIVAL AND REQUESTS A WORK NOTE WITH EVERY VISIT. PT IS ALSO KNOWN TO FREQUENT MULTIPLE OTHER LOCAL ER'S WELL. STRESS TEST 08/24/2021: IMPRESSION: 1. Normal heart rate and a blunted blood pressure response to regadenoson. 2. There was no chest discomfort, arrhythmias, or electrocardiogram changes during the test. 3. There was normal myocardial perfusion in all segments without evidence of infarction or ischemia. 4. There was normal wall motion in all segments with a calculated ejection fraction of 70%. PT IS TO HAVE AN COLONOSCOPY IN NEAR FUTURE FOR ONGOING RECTAL BLEEDING PCP: [facility] [place], [facility] HELPER [facility] [place] HYDRAULIC STRAINER OPERATOR: DR. COVINGTON PERFORMANCE ANALYST: DR. LANGFORD [facility] [place] Allergies and Home Medications Allergies Coded Allergies: No Known Drug Allergies (Unverified , 05/04/11) Patient Home Medication List Home Medication List Reviewed: Yes Albuterol Sulfate (Albuterol Sulfate) 2.5 Mg/0.5 Ml Vial.neb, 2.5 MG INH Q6H PRN for SHORTNESS OF BREATH, (Reported) Entered as Reported by: JAMIL CHAN on 08/25/21 1239 Albuterol Sulfate (Ventolin Hfa) 1 Puff Puff, 2 PUFF INH Q4H PRN for SHORTNESS OF BREATH, (Reported) Entered as Reported by: JAMIL CHAN on 08/25/21 1239 Cetirizine HCl (Cetirizine HCl) 10 Mg Tablet, 10 MG PO DAILY, (Reported) Entered as Reported by: JAMIL CHAN on 08/25/21 1239 Fluticasone Propionate (Flonase Allergy Relief) 50 Mcg/Actuation [place].susp, 1 SPRAY NS DAILY, (Reported) Entered as Reported by: NGOC BUTCHER on 11/24/21 0945 Fluticasone/Salmeterol (Advair 500-50 Diskus) 1 Each Blst.w.dev, 1 EACH IH BID PRN for SHORTNESS OF BREATH, (Reported) Entered as Reported by: JAMIL CHAN on 08/25/21 1241 Levothyroxine Sodium (Levothyroxine Sodium) 137 Mcg Tablet, 137 MCG PO DAILY, (Reported) Entered as Reported by: JAMIL CHAN on 08/25/21 1239 Metoprolol Succinate (Metoprolol Succinate) 25 Mg Tab.er.24h, 25 MG PO DAILY, (Reported) Entered as Reported by: JAMIL CHAN on 08/25/21 1239 Pantoprazole Sodium (Protonix) 40 Mg Tablet., 40 MG PO DAILY Prescribed by: EARNESTINE WILKERSON on 10/18/21 0220 Discontinued Medications Aspirin (Aspirin EC) 81 Mg Tablet.dr, 81 MG PO DAILY Discontinued Reason: No Longer Taking Prescribed by: EDITH BARILLAS on 08/25/21 1330 Azithromycin (Azithromycin) 250 Mg Tablet, 250 MG PO UD Discontinued Reason: No Longer Taking Prescribed by: MIKAEL FRIEND on 10/02/21 1612 Montelukast Sodium (Montelukast Sodium) 10 Mg Tablet, 10 MG PO DAILY, (Reported) Discontinued Reason: No Longer Taking Entered as Reported by: JAMIL CHAN on 08/25/21 1239 Ondansetron (Ondansetron Odt) 4 Mg Tab.rapdis, 4 MG SL Q4H PRN for NAUSEA/VOMITING Discontinued Reason: No Longer Taking Prescribed by: EARNESTINE WILKERSON on 10/18/21 0220 Pantoprazole Sodium (Pantoprazole Sodium) 40 Mg Tablet.dr, 40 MG PO DAILY Discontinued Reason: No Longer Taking Prescribed by: EDITH BARILLAS on 08/25/21 1330 Prednisone (Prednisone) 50 Mg Tab, 50 MG PO DAILY Discontinued Reason: No Longer Taking Prescribed by: MIKAEL FRIEND on 10/02/21 1612 Review of Systems Review of Systems Constitutional: no symptoms reported EENTM: No Symptoms Reported Respiratory: See HPI Cardiovascular: See HPI Gastrointestinal: See HPI Genitourinary: No Symptoms Reported Musculoskeletal: no symptoms reported Skin: no symptoms reported Psychiatric/Neurological: No Symptoms Reported Endocrine: No Symptoms Reported Hematologic/Lymphatic: No Symptoms Reported Past Rzcagsv-Qoloih-Buqkjl Hx Patient Social History Tobacco Use?: No Use of E-Cig and/or Vaping dev: No Substance use?: No Alcohol Use?: No Immunizations Up To Date Tetanus Booster (TDap): Less than 5yrs PED Vaccines UTD: Yes First/Initial COVID19 Vaccinat: 2020 Second COVID19 Vaccination Elian: 2020 Third COVID19 Vaccination Date: NO Seasonal Allergies Seasonal Allergies: No (SEASONAL) Past Medical History Surgery/Hospitalization HX: COPD, hypothyroid, CHRONIC CP Surgeries: Yes (HEART CATH 2012--NORMAL) Cardiac Respiratory: Yes (COVID-19 infection 2020) Sleep Apnea, COPD Currently Using CPAP: Yes Currently Using BIPAP: No Cardiac: Yes Hypertension Neurological: No Reproductive Disorders: No Genitourinary: No Gastrointestinal: No Musculoskeletal: No Endocrine: Yes Hypothyroidsim HEENT: No Cancer: No Psychosocial: Yes Anxiety Integumentary: No Blood Disorders: No Family Medical History Heart Disease STRESS TEST 08/24/[address] ROJO: IMPRESSION: 1. Normal heart rate and a blunted blood pressure response to regadenoson. 2. There was no chest discomfort, arrhythmias, or electrocardiogram changes during the test. 3. There was normal myocardial perfusion in all segments without evidence of infarction or ischemia. 4. There was normal wall motion in all segments with a calculated ejection fraction of 70%. HAD NORMAL CARDIAC CATH IN 2012 Physical Exam Vital Signs Vital Signs - First Documented 11/28/21 11/29/21 20:22 00:26 Temp 36.1 Pulse 78 Resp 19 B/P (MAP) 152/97 (115) Pulse Ox 96 O2 Delivery Room Air Capillary Refill : Height, Weight, BMI Height: 5'9.00" Weight: 210lbs. 0oz. [id number]; 36.00 BMI Method:Stated General Appearance: No Apparent Distress, WD/WN, Obese, Other (DIRTY, MALODOROUS, COVERED IN ANIMAL HAIR. DOES NOT APPEAR TO BE IN ANY DISCOMFORT OR DISTRESS. ) Neck: Normal Inspection Respiratory: Chest Non Tender, Normal Breath Sounds, No Accessory Muscle Use, No Respiratory Distress Cardiovascular: Regular Rate, Rhythm, No Edema, No JVD, No Murmur, Normal Peripheral Pulses Gastrointestinal: Normal Bowel Sounds, No Organomegaly, No Pulsatile Mass, Non Tender, Soft Extremity: Normal Inspection Neurologic/Psychiatric: Alert, Oriented x3, No Motor/Sensory Deficits, Normal Mood/Affect, route sales associate II-XII Norm as Tested Skin: Normal Color, Warm/Dry Progress/Results/Core Measures Results/Orders Lab Results Laboratory Tests Test 11/28/21 20:28 11/28/21 22:53 11/28/21 23:30 Range/Units White Blood Count 9.6 4.3-11.0 10^3/uL Red Blood Count 4.51 4.30-5.52 10^6/uL Hemoglobin 12.7 L 13.3-17.7 g/dL Hematocrit 40 40-54 % Mean Corpuscular Volume 88 80-99 fL Mean Corpuscular Hemoglobin 28 25-34 pg Mean Corpuscular Hemoglobin Concent 32 32-36 g/dL Red Cell Distribution Width 13.2 10.0-14.5 % Platelet Count 269 130-400 10^3/uL Mean Platelet Volume 9.8 9.0-12.2 fL Immature Granulocyte % (Auto) 0 % Neutrophils (%) (Auto) 57 42-75 % Lymphocytes (%) (Auto) 23 12-44 % Monocytes (%) (Auto) 8 0-12 % Eosinophils (%) (Auto) 11 H 0-10 % Basophils (%) (Auto) 1 0-10 % Neutrophils # (Auto) 5.5 1.8-7.8 10^3/uL Lymphocytes # (Auto) 2.3 1.0-4.0 10^3/uL Monocytes # (Auto) 0.7 0.0-1.0 10^3/uL Eosinophils # (Auto) 1.1 H 0.0-0.3 10^3/uL Basophils # (Auto) 0.1 0.0-0.1 10^3/uL Immature Granulocyte # (Auto) 0.0 0.0-0.1 10^3/uL Prothrombin Time 12.8 12.2-14.7 SEC INR Comment 0.9 0.8-1.4 Activated Partial Thromboplast Time 29 24-35 SEC D-Dimer 0.08 0.00-0.49 UG/ML Sodium Level 141 135-145 MMOL/L Potassium Level 4.0 3.6-5.0 MMOL/L Chloride Level 106 98-107 MMOL/L Carbon Dioxide Level 22 21-32 MMOL/L Anion Gap 13 5-14 MMOL/L Blood Urea Nitrogen 14 7-18 MG/DL Creatinine 0.91 0.60-1.30 MG/DL Estimat Glomerular Filtration Rate 109 BUN/Creatinine Ratio 15 Glucose Level 98 70-105 MG/DL Calcium Level 9.4 8.5-10.1 MG/DL Corrected Calcium 9.4 8.5-10.1 MG/DL Magnesium Level 1.9 1.6-2.4 MG/DL Total Bilirubin 0.2 0.1-1.0 MG/DL Aspartate Amino Transf (AST/SGOT) 15 5-34 U/L Alanine Aminotransferase (ALT/SGPT) 16 0-55 U/L Alkaline Phosphatase 90 40-136 U/L Total Creatine Kinase 87 30-200 U/L Creatine Kinase MB 1.0 <6.6 NG/ML Myoglobin 26.8 10.0-92.0 NG/ML Troponin I < 0.028 < 0.028 <0.028 NG/ML B-Type Natriuretic Peptide 32.0 <100.0 PG/ML Total Protein 7.4 6.4-8.2 GM/DL Albumin 4.0 3.2-4.5 GM/DL Amylase Level 62 25-125 U/L Lipase 30 8-78 U/L Serum Alcohol < 10 <10 MG/DL Influenza Type A (RT-PCR) Not Detected Not Detecte Influenza Type B (RT-PCR) Not Detected Not Detecte SARS-CoV-2 RNA (RT-PCR) Not Detected Not Detecte Urine Color YELLOW Urine Clarity CLEAR Urine pH 7.0 5-9 Urine Specific [place] 1.020 1.016-1.022 Urine Protein NEGATIVE NEGATIVE Urine Glucose (UA) NEGATIVE NEGATIVE Urine Ketones NEGATIVE NEGATIVE Urine Nitrite NEGATIVE NEGATIVE Urine Bilirubin NEGATIVE NEGATIVE Urine Urobilinogen 0.2 < = 1.0 MG/DL Urine Leukocyte Esterase NEGATIVE NEGATIVE Urine RBC (Auto) NEGATIVE NEGATIVE Urine RBC NONE /HPF Urine WBC RARE /HPF Urine Squamous Epithelial Cells RARE /HPF Urine Crystals PRESENT H /LPF Urine Amorphous Sediment FEW EDISON PHOSPHATE H /LPF Urine Bacteria TRACE /HPF Urine Casts NONE /LPF Urine Mucus MODERATE H /LPF Urine Yeast FEW H /HPF Urine Culture Indicated YES Urine Opiates Screen NEGATIVE NEGATIVE Urine Oxycodone Screen NEGATIVE NEGATIVE Urine Methadone Screen NEGATIVE NEGATIVE Urine Propoxyphene Screen NEGATIVE NEGATIVE Urine Barbiturates Screen NEGATIVE NEGATIVE Ur Tricyclic Antidepressants Screen NEGATIVE NEGATIVE Urine Phencyclidine Screen NEGATIVE NEGATIVE Urine Amphetamines Screen NEGATIVE NEGATIVE Urine Methamphetamines Screen NEGATIVE NEGATIVE Urine Benzodiazepines Screen NEGATIVE NEGATIVE Urine Cocaine Screen NEGATIVE NEGATIVE Urine Cannabinoids Screen NEGATIVE NEGATIVE My Orders Orders - NÉSTOR ESPINOZA DO Cbc With Automated Diff (11/28/21 20:28) Magnesium (11/28/21 20:28) Chest 1 View, Ap/Pa Only (11/28/21 20:28) Ekg Tracing (11/28/21 20:28) Comprehensive Metabolic Panel (11/28/21 20:28) Myoglobin Serum (11/28/21 20:28) Protime With Inr (11/28/21 20:28) Partial Thromboplastin Time (11/28/21 20:28) O2 (11/28/21 20:28) Monitor-Rhythm Ecg Trace Only (11/28/21 20:28) Ed Iv/Invasive Line Start (11/28/21 20:28) Creatine Kinase (11/28/21 20:28) Creatine Kinase Mb (11/28/21 20:28) Lipase (11/28/21 20:28) Amylase (11/28/21 20:28) Bnp [place] (11/28/21 20:28) Fibrin Degradation Products (11/28/21 20:28) Troponin I [place] (11/28/21 20:28) Nitroglycerin 0.4 Mg Btl 25's (Nitrostat (11/28/21 20:30) Alcohol (11/28/21 20:28) Drug Screen Stat (Urine) (11/28/21 20:28) Ua Culture If Indicated (11/28/21 20:28) Covid 19 Inhouse Test (11/28/21 20:28) Influenza A And B By Pcr (11/28/21 20:28) Isolation Central Supply Req (11/28/21 20:28) Ondansetron Injection (Zofran Injectio (11/28/21 20:30) Ed Iv/Invasive Line Start (11/28/21 20:29) Lactated Ringers (Lr 1000 Ml Iv Solution (11/28/21 20:30) Ketorolac Injection (Toradol Injection) (11/28/21 21:30) Pantoprazole Injection (Protonix Injecti (11/28/21 21:30) Troponin I [place] (11/28/21 23:14) Ekg Tracing (11/28/21 23:14) Urine Culture (11/28/21 22:53) Medications Given in ED Current Medications Medications Dose Ordered Sig/Anatoly Route Start Time Stop Time Status Last Admin Dose Admin Ketorolac Tromethamine 30 mg ONCE ONCE IVP 11/28/21 21:30 11/28/21 21:31 DC 11/28/21 21:59 30 MG Lactated Ringer's 1,000 ml @ 0 mls/hr Q0M ONCE IV 11/28/21 20:30 11/28/21 20:31 DC 11/28/21 20:35 0 MLS/HR Nitroglycerin 0.4 mg UD PRN SL 11/28/21 20:30 11/29/21 00:28 DC 11/28/21 20:44 0.4 MG Ondansetron HCl 4 mg ONCE ONCE IVP 11/28/21 20:30 11/28/21 20:31 DC 11/28/21 20:35 4 MG Pantoprazole 40 mg ONCE ONCE IV 11/28/21 21:30 11/28/21 21:31 DC 11/28/21 21:58 40 MG Vital Signs/I&O 11/28/21 11/29/21 20:22 00:26 Temp 36.1 Pulse 78 60 Resp 19 16 B/P (MAP) 152/97 (115) 143/83 Pulse Ox 96 99 O2 Delivery Room Air 11/29/21 00:00 Intake Total 1300 ml Balance 1300 ml Blood Pressure Mean: 115 Progress Progress Note : Progress Note NO RELIEF WITH NTG GIVEN TORADOL WITH RELIEF OF PAIN SLEPT THROUGH ENTIRE ER STAY 3 HOUR REPEAT TROPONIN AND EKG UNCHANGED. UNEVENTFUL ER STAY Initial ECG Impression Date: Nov 28, 2021 Initial ECG Impression Time: 20:39 Initial ECG Rate: 85 Initial ECG Rhythm: Normal Sinus EKG : EKG Time: 23:49 Rate: 57 Rhythm: Normal Sinus ECG Comparisson: Unchanged Diagnostic Imaging Comments CXR--PER RADIOLOGIST REPORT AT 2101 FINDINGS: The cardiomediastinal silhouette is unremarkable. The pulmonary vasculature is within normal limits. The lungs and pleural spaces are clear. IMPRESSION: No evidence of an acute cardiopulmonary process. Reviewed: Reviewed by Me Departure Impression Primary Impression: Chest pain Disposition: 01 HOME, SELF-CARE Condition: Improved Departure-Patient Inst. Decision time for Depature: 00:19 Referrals: [facility]/Rosalio (PCP) Primary Care Physician JOSE LUIS HAYDEN APRN (Family) Primary Care Physician CHINA COVINGTON MD Patient Instructions: Chest Pain, Adult ED Add. Discharge Instructions: CONTINUE YOUR REGULAR MEDICATIONS PRESCRIBED FOLLOW UP WITH DR. COVINGTON THIS WEEK FOR FURTHER CARE--CALL IN THE MORNING TO SCHEDULE APPOINTMENT All discharge instructions reviewed with patient and/or family. Voiced understanding. NÉSTOR ESPINOZA DO Nov 28, 2021 21:02
[2021-11-28 21:09] LABS: BILIRUBIN,TOTAL 0.2 MG/DL (0.1-1.0); CALCIUM 9.4 MG/DL (8.5-10.1); CREATININE SERUM 0.91 MG/DL (0.60-1.30); MAGNESIUM 1.9 MG/DL (1.6-2.4); TOTAL PROTEIN 7.4 GM/DL (6.4-8.2)
[2021-11-28] MEDS ORDERED: KETOROLAC 30 MG/ML VIAL IVP ONE (21:30)
[2021-11-28] MEDS ORDERED: PANTOPRAZOLE 40 MG (PROTONIX) VIAL IV ONE (21:30)
[2021-11-28 23:25] LABS: BILIRUBIN,URINE NEGATIVE (NEGATIVE); CLARITY,URINE CLEAR; COLOR,URINE YELLOW; GLUCOSE, URINE (UA) NEGATIVE (NEGATIVE); KETONES,URINE NEGATIVE (NEGATIVE); LEUKOCYTE ESTERASE ,URINE NEGATIVE (NEGATIVE); NITRITE,URINE NEGATIVE (NEGATIVE); PROTEIN,URINE NEGATIVE (NEGATIVE)
[2021-11-28 23:51] LABS: AMPHETAMINE SCREEN, URINE NEGATIVE (NEGATIVE); BARBITURATE SCREEN URINE NEGATIVE (NEGATIVE); BENZODIAZEPINES SCREEN URINE NEGATIVE (NEGATIVE); CANNABINOID SCREEN, URINE NEGATIVE (NEGATIVE); COCAINE SCREEN URINE NEGATIVE (NEGATIVE); METHADONE STAT NEGATIVE (NEGATIVE); OPIATE SCREEN URINE NEGATIVE (NEGATIVE); OXYCODONE STAT NEGATIVE (NEGATIVE); PROPOXYPHENE STAT NEGATIVE (NEGATIVE); TRICYCLIC ANTIDEPRESSANTS SCRE NEGATIVE (NEGATIVE)
[2021-11-29 00:08] LABS: AMORPHOUS SEDIMENT,UR FEW AMOR PHOSPHATE /LPF; BACTERIA,URINE TRACE /HPF; SQUAMOUS EPITHELIAL CELL,UR RARE /HPF; WBC,URINE RARE /HPF; YEAST,URINE FEW /HPF
[2021-11-29 00:26] VITALS: BP 143/83
== END 2021-11-29 00:28 | disposition home or self-care (01) ==
LOC: EDUNIT# 20:19 → ER 20:21
DX: R07.9 Chest pain, unspecified (principal); G47.30 Sleep apnea, unspecified; E66.9 Obesity, unspecified; Z98.61 Coronary angioplasty status; Z99.89 Dependence on other enabling machines and devices; Z68.36 Body mass index [BMI] 36.0-36.9, adult; Z20.822 Contact with and (suspected) exposure to COVID-19; Z28.311 Partially vaccinated for COVID-19
CPT/HCPCS: 71045; 80053; 80306; 81000; 82150; 82550; 82553; 83690; 83735; 83874; 83880; 84484; 85025; 85379; 85610; 85730; 87077; 87088; 87636; 93005; 93041; 99284; G0480; 36415; 80320

== ENCOUNTER 2021-12-05 07:43 | Day surgery (SDC) | payer OTHER ==
[~2021-12-05] VITALS: Ht 175.3 cm; Wt 112.5 kg
[2021-12-05] MEDS ORDERED: LACTATED RINGERS 1,000 ML IV STA ×2 (07:46→07:55)
[2021-12-05 07:55] VITALS: BP 156/107
[2021-12-05] MEDS ORDERED: MIDAZOLAM 2 MG/2 ML (VERSED) VIAL ONE (08:52)
[2021-12-05] MEDS ORDERED: PROPOFOL INJECTION 50 ML IV ONE (08:52)
[2021-12-05 09:20] VITALS: BP 116/79
--- NOTE | 2021-12-05 09:22 | Progress Note-Post Operative ---
Post-Operative Progess Note Surgeon (s)/Brick Veneer Maker (s) Surgeon BRANDON MATTSON DO Brick Veneer Maker: none Pre-Operative Diagnosis rectal bleed Post-Operative Diagnosis polyp internal hemorrhoids anal fissure Procedure & Operative Findings Date of Procedure 12/05/21 Procedure Performed/Findings Colonoscopy with hot biopsy PROCEDURE NOTE: After informed consent was obtained, the patient was brought to the endoscopy suite, placed in bed in left lateral decubitus position. He was administered IV sedation by the POT LINER who then monitored his vitals the entire time, heart rate, blood pressure and pulse ox and the scope was inserted, pushed all the way to about 150 cm and pushed into the cecum, took a picture of appendiceal orifice and noted the ileo-cecal valve. Then slowly withdrew the scope insufflating to look circumferentially at the gómez starting in the cecum, up the ascending colon to the hepatic flexure and then down the transverse colon. Found a small polyp here and elected to do a hot biopsy. Next continued on to the splenic flexure, into the descending colon, down into the sigmoid and then into the rectal vault. Retroflexed the scope and saw some small hemorrhoids. Took a picture of the internal hemorrhoids. As I was pulling the scope out I saw a small anal fissure (probably the cause of his rectal bleeding). The patient tolerated the procedure. He was recovered in endoscopy suite. Recommended for repeat colonoscopy in 5 years. Anesthesia Type IV sedation by POT LINER Estimated Blood Loss Estimated blood loss (mL): scant Specimens/Packing Specimens Removed transverse colon polyp BRANDON MATTSON DO Dec 05, 2021 09:22
--- NOTE | 2021-12-05 09:23 | Endoscopy Discharge Instruct ---
Endo Procedure/Findings Findings 1.: Polyp 2.: Internal Hemorrhoids 3.: Other Findings (anal fissure) Discharge Instructions - Activity: You might feel a little sleepy until tomorrow. This is due to the medicine you received to relax you. Until tomorrow, you should: NOT drive a car, operate machinery or power tools. NOT drink any alcoholic beverages. NOT make any important decisions or sign importortant papers. Do not return to work until tomorrow, unless otherwise instructed. Resume previous activities tomorrow. Diet: Start by taking liquids. If you tolerate liquids, advance to solid food. 1.: Colonscopy in 5 years Notify Physician - If you experience excessive bleeding, unusual abdominal pain, fever, or chest pain, contact your doctor immediately. BRANDON MATTSON DO Dec 05, 2021 09:23
[2021-12-05 09:25] VITALS: BP 113/75
[2021-12-05 09:29] VITALS: BP 114/74
[2021-12-05 09:50] VITALS: BP 106/74
[2021-12-05] MEDS ORDERED: ATROPINE INJ 0.4 MG/ML SDV ONE (10:08)
--- NOTE | 2021-12-05 11:37 | Anesthesia-General Post-Op ---
MAC Patient Condition Mental Status/LOC: Same as Preop Cardiovascular: Satisfactory Nausea/Vomiting: Absent Respiratory: Satisfactory Pain: Controlled Complications: Absent Post Op Complications Complications None Follow Up Care/Instructions Patient Instructions None needed. Anesthesiology Discharge Order Discharge Order Patient is doing well, no complaints, stable vital signs, no apparent adverse anesthesia problems. No complications reported per nursing. TATUM ASENCIO CRNA Dec 05, 2021 11:37
== END 2021-12-05 10:05 | disposition home or self-care (01) ==
LOC: ENDO 07:43
PROVIDERS: ATTEND Surgery
DX: D12.3 Benign neoplasm of transverse colon (principal); K64.8 Other hemorrhoids; K60.2 Anal fissure, unspecified; G47.33 Obstructive sleep apnea (adult) (pediatric); E66.9 Obesity, unspecified; Z68.35 Body mass index [BMI] 35.0-35.9, adult; Z86.16 Personal history of COVID-19

== ENCOUNTER 2021-12-21 07:38 | Outpatient (CLI) | payer SELFPAY ==
[~2021-12-21] VITALS: Ht 175.3 cm; Wt 110.2 kg
== END 2021-12-22 09:45 | disposition home or self-care (01) ==
LOC: PREOP 07:38
PROVIDERS: ATTEND Surgery
DX: Z01.818 Encounter for other preprocedural examination (principal)

== ENCOUNTER 2021-12-29 09:31 | Day surgery (SDC) | payer OTHER ==
[2021-12-29] VITALS (7 sets, daily range): BP systolic 116–144; BP diastolic 57–103
[~2021-12-29] VITALS: Ht 175.3 cm; Wt 110.2 kg
[2021-12-29] MEDS ORDERED: LACTATED RINGERS 1,000 ML IV STA (09:34)
[2021-12-29] MEDS ORDERED: HURRICAINE EXT TUBE (BENZOCAINE) XX PRN (09:45)
--- NOTE | 2021-12-29 10:03 | Progress Note-Pre Operative ---
Pre-Operative Progress Note H&P Reviewed The H&P was reviewed, patient examined and no changes noted. Time Seen by Provider: 10:01 Date H&P Reviewed: Dec 29, 2021 Time H&P Reviewed: 10:01 Pre-Operative Diagnosis: Chest pain r/o GI source BRANDON MATTSON DO Dec 29, 2021 10:03
[2021-12-29] MEDS ORDERED: MIDAZOLAM 2 MG/2 ML (VERSED) VIAL ONE (10:33)
[2021-12-29] MEDS ORDERED: PROPOFOL INJECTION 50 ML IV ONE (10:33)
--- NOTE | 2021-12-29 10:56 | Progress Note-Post Operative ---
Post-Operative Progess Note Surgeon (s)/Adobe Cq Developer (s) Surgeon BRANDON MATTSON DO Adobe Cq Developer: none Pre-Operative Diagnosis Chest pain r/o GI source Post-Operative Diagnosis Gastritis Esophagitis Small hiatal hernia Procedure & Operative Findings Date of Procedure 12/29/21 Procedure Performed/Findings EGD with bx PROCEDURE NOTE: After informed consent was obtained, the patient was brought to the endoscopy suite, placed in bed in left lateral decubitus position. He was administered IV sedation by the HEEL SHAPER who then monitored vitals the entire time, heart rate, blood pressure and pulse ox and the scope was inserted down the mouth through the esophagus into the stomach. On the way down, noted some mild esophagitis, took a picture, pushed into the stomach, pushed past the antrum into the duodenum. Duodenum looked good. Pulled back and noted some mild gastritis; therefore, did a biopsy of the antrum. I also noted moderate gastritis in the body and cardia of stomach; did biopsies here as well. Retroflexed the scope and saw a small sliding hiatal hernia (very tiny gap between scope), took a picture of this and then pulled the scope into the GE junction, took another picture of the hiatal hernia and then did a biopsy of the GE junction. Pushed the scope back into the stomach, suctioned all the air out of the stomach. At this point pulled the scope up the esophagus and out the mouth. The patient tolerated the procedure, and he recovered in endoscopy suite. Anesthesia Type IV sedation by HEEL SHAPER Estimated Blood Loss Estimated blood loss (mL): scant Specimens/Packing Specimens Removed antral bx body of stomach bx Cardia bx GE jxn bx BRANDON MATTSON DO Dec 29, 2021 10:56
--- NOTE | 2021-12-29 10:57 | Endoscopy Discharge Instruct ---
Endo Procedure/Findings Findings 1.: Gastritis 2.: Hiatal Hernia 3.: Other Findings (esophagitis) Discharge Instructions - Activity: You might feel a little sleepy until tomorrow. This is due to the medicine you received to relax you. Until tomorrow, you should: NOT drive a car, operate machinery or power tools. NOT drink any alcoholic beverages. NOT make any important decisions or sign importortant papers. Do not return to work until tomorrow, unless otherwise instructed. Resume previous activities tomorrow. Diet: Start by taking liquids. If you tolerate liquids, advance to solid food. 1.: EGD in 3 years Notify Physician - If you experience excessive bleeding, unusual abdominal pain, fever, or chest pain, contact your doctor immediately. BRANDON MATTSON DO Dec 29, 2021 10:57
--- NOTE | 2021-12-29 14:40 | Anesthesia-General Post-Op ---
MAC Patient Condition Mental Status/LOC: Same as Preop Cardiovascular: Satisfactory Nausea/Vomiting: Absent Respiratory: Satisfactory Pain: Controlled Complications: Absent Post Op Complications Complications None Follow Up Care/Instructions Patient Instructions None needed. Anesthesiology Discharge Order Discharge Order Patient is doing well, no complaints, stable vital signs, no apparent adverse anesthesia problems. No complications reported per nursing. TERELL MORALES CRNA Dec 29, 2021 14:40
== END 2021-12-29 11:43 | disposition home or self-care (01) ==
LOC: ENDO 09:31
PROVIDERS: ATTEND Surgery
DX: K29.50 Unspecified chronic gastritis without bleeding (principal); K20.90 Esophagitis, unspecified without bleeding; K44.9 Diaphragmatic hernia without obstruction or gangrene; Z79.899 Other long term (current) drug therapy; D12.3 Benign neoplasm of transverse colon; K64.0 First degree hemorrhoids; B96.81 Helicobacter pylori [H. pylori] as the cause of diseases classified elsewhere
CPT/HCPCS: 88305; 88342

== ENCOUNTER 2022-01-23 13:14 | Emergency (ER) | payer OTHER ==
[~2022-01-23] VITALS: Ht 175 cm; Wt 114.3 kg
--- NOTE | 2022-01-23 13:53 | ED Chest Pain ---
General Chief Complaint: Chest Pain Stated Complaint: CHEST PAIN Nursing Triage Note: Chest pain that started at [id number] today w/ hypertension at home. Source: patient Exam Limitations: no limitations History of Present Illness Date Seen by Provider: Jan 23, 2022 Time Seen by Provider: 13:40 Initial Comments Patient is a 41-year-old male who presents to the emergency department today with a chief complaint of substernal chest pain. He states onset at about 930 this morning, he was at work states that one of the medications took his blood pressure and it was quite elevated greater than 180. He takes medication for blood pressure and states that he is compliant with it. He is also on thyroid medication. Patient does not believe anything makes it any better or any worse. Its been constant since 930. He states it radiates into his left shoulder and left arm. He denies nausea, sweating, shortness of breath. He denies COVID symptoms. He was seen at a hospital in [place], I believe that about 2 weeks ago with similar symptoms. He supposed to follow-up with Dr. Cisneros. Patient tells me that he had cardiac cath in 2011 that did not show any blockages. He is not a diabetic. He states his father has heart disease. He states he does have nitro at home but it is out of date and he did not take any. The media analytics manager gave him 2 Tylenol and they have not helped. He is a non-smoker. He states he does have COPD. All other review of systems reviewed and negative except as stated Timing/Duration: 4-6 hours Severity/Quality: severe ("10") Location: substernal Radiation: arms (left) Activities at Onset: activity (at work) Prior CP/Workup: cardiac cath ASA po PREVENTION RN: No NTG SL PREVENTION RN: No Allergies and Home Medications Allergies Coded Allergies: No Known Drug Allergies (Unverified , 05/04/11) Patient Home Medication List Home Medication List Reviewed: Yes Albuterol Sulfate (Albuterol Sulfate) 2.5 Mg/0.5 Ml Vial.neb, 2.5 MG INH Q6H PRN for SHORTNESS OF BREATH, (Reported) Entered as Reported by: JAMIL CHAN on 08/25/21 1239 Albuterol Sulfate (Ventolin Hfa) 1 Puff Puff, 2 PUFF INH Q4H PRN for SHORTNESS OF BREATH, (Reported) Entered as Reported by: JAMIL CHAN on 08/25/21 1239 Cetirizine HCl (Cetirizine HCl) 10 Mg Tablet, 10 MG PO DAILY, (Reported) Entered as Reported by: JAMIL CHAN on 08/25/21 1239 Fluticasone Propionate (Flonase Allergy Relief) 50 Mcg/Actuation [place].susp, 1 SPRAY NS DAILY, (Reported) Entered as Reported by: NGOC BUTCHER on 11/24/21 0945 Fluticasone/Salmeterol (Advair 500-50 Diskus) 1 Each Blst.w.dev, 1 EACH IH BID PRN for SHORTNESS OF BREATH, (Reported) Entered as Reported by: JAMIL CHAN on 08/25/21 1241 Levothyroxine Sodium (Levothyroxine Sodium) 137 Mcg Tablet, 137 MCG PO DAILY, (Reported) Entered as Reported by: JAMIL CHAN on 08/25/21 1239 Metoprolol Succinate (Metoprolol Succinate) 25 Mg Tab.er.24h, 25 MG PO DAILY, (Reported) Entered as Reported by: JAMIL CHAN on 08/25/21 1239 Review of Systems Review of Systems Constitutional: see HPI EENTM: No Symptoms Reported Respiratory: No Symptoms Reported Cardiovascular: Chest Pain Gastrointestinal: No Symptoms Reported Genitourinary: No Symptoms Reported Musculoskeletal: muscle pain (left arm) Skin: no symptoms reported Psychiatric/Neurological: No Symptoms Reported All Other Systems Reviewed Negative Unless Noted: Yes Past Pfvmzgi-Jeqkpn-Ntsbfc Hx Patient Social History Tobacco Use?: No Use of E-Cig and/or Vaping dev: No Substance use?: No Alcohol Use?: No Pt feels they are or have been: No Immunizations Up To Date Tetanus Booster (TDap): Less than 5yrs PED Vaccines UTD: Yes First/Initial COVID19 Vaccinat: 2020 Second COVID19 Vaccination Elian: 2020 Third COVID19 Vaccination Date: NO Seasonal Allergies Seasonal Allergies: No (SEASONAL) Past Medical History Surgery/Hospitalization HX: COPD, hypothyroid, CHRONIC CP Surgeries: Yes (HEART CATH 2012--NORMAL) Cardiac Respiratory: Yes (COVID-19 infection 2020) Sleep Apnea, COPD Currently Using CPAP: Yes Currently Using BIPAP: No Cardiac: Yes Hypertension Neurological: No Reproductive Disorders: No Genitourinary: No Gastrointestinal: No Musculoskeletal: No Endocrine: Yes Hypothyroidsim HEENT: No Cancer: No Psychosocial: Yes Anxiety Integumentary: No Blood Disorders: No Family Medical History Heart Disease STRESS TEST 08/24/[address] ROJO: IMPRESSION: 1. Normal heart rate and a blunted blood pressure response to regadenoson. 2. There was no chest discomfort, arrhythmias, or electrocardiogram changes during the test. 3. There was normal myocardial perfusion in all segments without evidence of infarction or ischemia. 4. There was normal wall motion in all segments with a calculated ejection fraction of 70%. HAD NORMAL CARDIAC CATH IN 2012 Physical Exam Vital Signs Vital Signs - First Documented 01/23/22 13:21 Temp 36.6 Pulse 87 Resp 12 B/P (MAP) 146/87 (106) Pulse Ox 98 O2 Delivery Nasal Cannula O2 Flow Rate 2.00 Capillary Refill : Less Than 3 Seconds Height, Weight, BMI Height: 5'9.00" Weight: 210lbs. 0oz. 95.304875si; 37.00 BMI Method:Stated General Appearance: WD/WN, Anxious HEENT: PERRL/EOMI Neck: Normal Inspection Respiratory: Lungs Clear, Normal Breath Sounds, No Accessory Muscle Use, No Respiratory Distress Cardiovascular: Regular Rate, Rhythm, Normal Peripheral Pulses (2+ radial bilaterally) Gastrointestinal: Normal Bowel Sounds, Non Tender, Soft Extremity: Normal Inspection, Normal Range of Motion, Non Tender, No Calf Tenderness Neurologic/Psychiatric: Alert, Oriented x3, No Motor/Sensory Deficits, Normal Mood/Affect, metal finisher II-XII Norm as Tested Skin: Normal Color, Warm/Dry Progress/Results/Core Measures Results/Orders Lab Results Laboratory Tests Test 01/23/22 13:28 Range/Units White Blood Count 9.3 4.3-11.0 10^3/uL Red Blood Count 4.56 4.30-5.52 10^6/uL Hemoglobin 12.8 L 13.3-17.7 g/dL Hematocrit 41 40-54 % Mean Corpuscular Volume 89 80-99 fL Mean Corpuscular Hemoglobin 28 25-34 pg Mean Corpuscular Hemoglobin Concent 31 L 32-36 g/dL Red Cell Distribution Width 13.4 10.0-14.5 % Platelet Count 256 130-400 10^3/uL Mean Platelet Volume 10.2 9.0-12.2 fL Immature Granulocyte % (Auto) 0 % Neutrophils (%) (Auto) 63 42-75 % Lymphocytes (%) (Auto) 21 12-44 % Monocytes (%) (Auto) 7 0-12 % Eosinophils (%) (Auto) 8 0-10 % Basophils (%) (Auto) 1 0-10 % Neutrophils # (Auto) 5.9 1.8-7.8 10^3/uL Lymphocytes # (Auto) 2.0 1.0-4.0 10^3/uL Monocytes # (Auto) 0.6 0.0-1.0 10^3/uL Eosinophils # (Auto) 0.8 H 0.0-0.3 10^3/uL Basophils # (Auto) 0.1 0.0-0.1 10^3/uL Immature Granulocyte # (Auto) 0.0 0.0-0.1 10^3/uL Prothrombin Time 12.2 12.2-14.7 SEC INR Comment 0.9 0.8-1.4 Activated Partial Thromboplast Time 29 24-35 SEC Sodium Level 140 135-145 MMOL/L Potassium Level 3.7 3.6-5.0 MMOL/L Chloride Level 107 98-107 MMOL/L Carbon Dioxide Level 26 21-32 MMOL/L Anion Gap 7 5-14 MMOL/L Blood Urea Nitrogen 11 7-18 MG/DL Creatinine 0.99 0.60-1.30 MG/DL Estimat Glomerular Filtration Rate 98 BUN/Creatinine Ratio 11 Glucose Level 97 70-105 MG/DL Calcium Level 9.3 8.5-10.1 MG/DL Corrected Calcium 9.4 8.5-10.1 MG/DL Magnesium Level 1.9 1.6-2.4 MG/DL Total Bilirubin 0.3 0.1-1.0 MG/DL Aspartate Amino Transf (AST/SGOT) 19 5-34 U/L Alanine Aminotransferase (ALT/SGPT) 28 0-55 U/L Alkaline Phosphatase 94 40-136 U/L Myoglobin 29.1 10.0-92.0 NG/ML Troponin I < 0.028 <0.028 NG/ML Total Protein 7.3 6.4-8.2 GM/DL Albumin 3.9 3.2-4.5 GM/DL My Orders Orders - MIKE CHIN MD Ed Iv/Invasive Line Start (01/23/22 13:49) Cbc With Automated Diff (01/23/22 13:49) Magnesium (01/23/22 13:49) Chest 1 View, Ap/Pa Only (01/23/22 13:49) Ekg Tracing (01/23/22 13:49) Comprehensive Metabolic Panel (01/23/22 13:49) Myoglobin Serum (01/23/22 13:49) Protime With Inr (01/23/22 13:49) Partial Thromboplastin Time (01/23/22 13:49) O2 (01/23/22 13:49) Monitor-Rhythm Ecg Trace Only (01/23/22 13:49) Lipid Panel (01/24/22 06:00) Ed Iv/Invasive Line Start (01/23/22 13:49) Troponin I [place] (01/23/22 13:49) Nitroglycerin 0.4 Mg Btl 25's (Nitrostat (01/23/22 14:00) Aspirin Chewable Tablet (Baby Aspirin Ch (01/23/22 14:00) Ketorolac Injection (Toradol Injection) (01/23/22 15:00) Medications Given in ED Current Medications Medications Dose Ordered Sig/Anatoly Route Start Time Stop Time Status Last Admin Dose Admin Aspirin 324 mg ONCE ONCE PO 01/23/22 14:00 01/23/22 14:01 DC 01/23/22 14:25 324 MG Ketorolac Tromethamine 15 mg ONCE ONCE IVP 01/23/22 15:00 01/23/22 15:01 DC 01/23/22 15:03 15 MG Nitroglycerin 0.4 mg UD PRN SL 01/23/22 14:00 01/23/22 14:54 DC 01/23/22 14:54 0.4 MG Vital Signs/I&O 01/23/22 01/23/22 01/23/22 01/23/22 13:21 13:21 14:15 14:35 Temp 36.6 Pulse 87 86 92 Resp 12 19 18 B/P (MAP) 146/87 (106) 152/116 148/101 Pulse Ox 98 96 98 98 O2 Delivery Nasal Cannula Room Air Nasal Cannula Nasal Cannula O2 Flow Rate 2.00 2.00 2.00 8/01/23/22 01/23/22 14:43 14:55 15:00 Pulse 96 93 90 Resp 12 16 13 B/P (MAP) 140/104 135/93 134/89 Pulse Ox 98 98 99 O2 Delivery Nasal Cannula Nasal Cannula Nasal Cannula O2 Flow Rate 2.00 2.00 Blood Pressure Mean: 106 Progress Progress Note : Time: 15:18 Progress Note Nitro sequentially x3 did not particularly help his pain. I did give him 15 mg of Toradol IV. He states his pain is down to a "3 or 4". His oxygen saturations are normal. He demonstrates no increased work of breathing or respiratory distress. His blood pressure is good he is not tachycardic. I have minimal concern for pulmonary embolism, pneumonia, sepsis or acute coronary syndrome. 4 hours into constant chest pain his troponin is undetectable. I have encouraged him to take deep breaths at home and NSAIDs for the discomfort. I recommended naproxen 500 mg twice daily with food for a week. I encouraged him to follow-up with his primary care physician this week as well as to follow- up with Dr. Cisneros whom he has seen in the past. He is comfortable with this plan of care. He asked for a work note for tomorrow as well as today. All questions are sought and answered Initial ECG Impression Date: Jan 23, 2022 Initial ECG Impression Time: 13:41 Initial ECG Rate: 84 Initial ECG Rhythm: Normal Sinus Initial ECG Intervals: Normal Initial ECG Impression: Normal Diagnostic Imaging Diagonstic Imaging: Xray Plain Films/CT/US/NM/MRI: chest Comments [facility], [place] NAME: EARNESTINE ALMAGUER [facility] REC#: [id number] PT STATUS: REG ER : 1980 PHYSICIAN: MIKE CHIN MD ADMIT DATE: 01/23/22/ER Draft Date of Exam:01/23/22 CHEST 1 VIEW, AP/PA ONLY INDICATION: Chest pain. TECHNIQUE: Single view chest 2:20 PM. CORRELATION STUDY: 11/28/2021 FINDINGS: The heart size, mediastinal configuration and pulmonary vascularity are within normal limits. The lungs are clear with no consolidating infiltrate. There is no significant effusion or pneumothorax. IMPRESSION: 1. Negative appearing portable chest. Dictated on workstation # [id number] Dict: 01/23/22 1443 Trans: 01/23/22 1443 DO [id number] Interpreted by: ZENAIDA FOWLER DO Electronically signed by: Departure Impression Primary Impression: Chest pain Qualified Codes: R07.9 - Chest pain, unspecified Disposition: 01 HOME, SELF-CARE Condition: Improved Departure-Patient Inst. Decision time for Depature: 15:20 Referrals: [facility] (PCP) Primary Care Physician JOSE LUIS HAYDEN APRN (Family) Primary Care Physician CHINA CISNEROS MD Patient Instructions: Chest Pain That Is Not Caused by the Heart (DC) Add. Discharge Instructions: Please continue to take your daily medications as prescribed. If you have worsening chest pain with nausea/vomiting, shortness of breath or sweating or pain that is changing in location please come back to the emergency room for reevaluation. Please call and follow-up with your primary care provider as well as with Dr. Cisneros. Take krem-upk-yegdocv naproxen also known as Aleve, 2 pills, with food twice daily as needed for pain. Take this for no longer than 1 week. Work/School Note: Work Release Form Date Seen in the Emergency Department: Jan 23, 2022 Return to Work: Jan 25, 2022 Copy Copies To 1: BELKYS PENA DO Copies To 2: CHINA CISNEROS MD, KATHRYN M MD Jan 23, 2022 13:53
[2022-01-23 13:56] LABS: BASOPHILS # (AUTO) 0.1 10^3/uL (0.0-0.1); BASOPHILS % (AUTO) 1 % (0-10); EOSINOPHILS # (AUTO) 0.8 10^3/uL (0.0-0.3); EOSINOPHILS % (AUTO) 8 % (0-10); HEMATOCRIT 41 % (40-54); HEMOGLOBIN 12.8 g/dL (13.3-17.7); LYMPHOCYTES % (AUTO) 21 % (12-44); MEAN CORPUSCULAR HEMOGLOBIN 28 pg (25-34); MEAN CORPUSCULAR HGB CONC 31 g/dL (32-36); MEAN CORPUSCULAR VOLUME 89 fL (80-99); MEAN PLATELET VOLUME 10.2 fL (9.0-12.2); MONOCYTES # (AUTO) 0.6 10^3/uL (0.0-1.0); MONOCYTES % (AUTO) 7 % (0-12); NEUTROPHILS # (AUTO) 5.9 10^3/uL (1.8-7.8); NEUTROPHILS % (AUTO) 63 % (42-75); PLATELET COUNT 256 10^3/uL (130-400); WHITE BLOOD COUNT 9.3 10^3/uL (4.3-11.0)
[2022-01-23] MEDS ORDERED: ASPIRIN 81 MG CHEW (CHILDREN'S ASA) PO ONE (14:00)
[2022-01-23 14:05] LABS: ALBUMIN 3.9 GM/DL (3.2-4.5); POTASSIUM 3.7 MMOL/L (3.6-5.0)
[2022-01-23 14:06] LABS: CALCIUM 9.3 MG/DL (8.5-10.1)
[2022-01-23 14:07] LABS: TOTAL PROTEIN 7.3 GM/DL (6.4-8.2)
[2022-01-23 14:09] LABS: BILIRUBIN,TOTAL 0.3 MG/DL (0.1-1.0)
[2022-01-23 14:11] LABS: CREATININE SERUM 0.99 MG/DL (0.60-1.30)
[2022-01-23 14:14] LABS: MAGNESIUM 1.9 MG/DL (1.6-2.4)
[2022-01-23 14:22] LABS: INR 0.9 (0.8-1.4); PROTHROMBIN TIME PATIENT 12.2 SEC (12.2-14.7)
[2022-01-23] MEDS: NITROGLYCERIN 0.4 MG SL TABS BTL 25'S SL PRN ×3 (14:25→14:54)
--- NOTE | 2022-01-23 14:44 | Diagnostic Imaging Report ---
INDICATION: Chest pain. TECHNIQUE: Single view chest 2:20 PM. CORRELATION STUDY: 11/28/2021 FINDINGS: The heart size, mediastinal configuration and pulmonary vascularity are within normal limits. The lungs are clear with no consolidating infiltrate. There is no significant effusion or pneumothorax. IMPRESSION: 1. Negative appearing portable chest. Dictated by: Dictated on workstation # [id number]
[2022-01-23] MEDS ORDERED: KETOROLAC 30 MG/ML VIAL IVP ONE (15:00)
[2022-01-23 15:27] VITALS: BP 117/99
== END 2022-01-23 15:27 | disposition home or self-care (01) ==
LOC: EDUNIT# 13:14 → ER 13:16
DX: R07.89 Other chest pain (principal); G47.30 Sleep apnea, unspecified; I10 Essential (primary) hypertension; Z79.899 Other long term (current) drug therapy; Z95.9 Presence of cardiac and vascular implant and graft, unspecified; Z99.89 Dependence on other enabling machines and devices
CPT/HCPCS: 36415; 71045; 80053; 83735; 83874; 84484; 85025; 85610; 85730; 93005; 93041

== ENCOUNTER 2022-02-13 09:45 | Emergency (ER) | payer OTHER ==
[~2022-02-13] VITALS: Ht 175.3 cm; Wt 115.0 kg
[~2022-02-13 09:45] MED LIST changes: +LEVO-55 PO; -LEVO500T81 PO
[2022-02-13] MEDS ORDERED: ASPIRIN 81 MG CHEW (CHILDREN'S ASA) PO ONE (10:00)
--- NOTE | 2022-02-13 10:00 | ED Syncope ---
General Chief Complaint: Chest Pain Stated Complaint: SYNCOPAL EPISODE/CP/SOA Source of Information: Patient Exam Limitations: No Limitations History of Present Illness Date Seen by Provider: Feb 13, 2022 Time Seen by Provider: 09:45 Initial Comments 42-year-old male presents to the emergency department today for a syncopal episode. He states he was at work eating breakfast and the next thing he remembers he was in the bathroom floor waking up. He does not member anything in between. He had no prodromal symptoms including chest pain, shortness of breath dizziness lightheadedness or change in his vision prior to passing out. He does have remote history of syncopal spells without any recent history of syncope. He is currently having some chest pain. It is described as a sharp aching sensation in his left anterior chest wall. He has been having these off and on for several years. He sees cardiology here locally. He last had a stress test a few months ago which was normal. He had a heart cath in 2011 which was normal reportedly. Denies any recent illness to include fevers chills, change in bowel or bladder habits. He does have blood in his stool, has had for some time. He recently had colonoscopy which was reportedly unable to find the source of bleeding. He states he continues to have rectal bleeding intermittently. Allergies and Home Medications Allergies Coded Allergies: No Known Drug Allergies (Unverified , 05/04/11) Patient Home Medication List Home Medication List Reviewed: Yes Albuterol Sulfate (Albuterol Sulfate) 2.5 Mg/0.5 Ml Vial.neb, 2.5 MG INH Q6H PRN for SHORTNESS OF BREATH, (Reported) Entered as Reported by: JAMIL CHAN on 08/25/21 1239 Albuterol Sulfate (Ventolin Hfa) 1 Puff Puff, 2 PUFF INH Q4H PRN for SHORTNESS OF BREATH, (Reported) Entered as Reported by: JAMIL CHAN on 08/25/21 1239 Cetirizine HCl (Cetirizine HCl) 10 Mg Tablet, 10 MG PO DAILY, (Reported) Entered as Reported by: JAMIL CHAN on 08/25/21 1239 Fluticasone Propionate (Flonase Allergy Relief) 50 Mcg/Actuation [place].susp, 1 SPRAY NS DAILY, (Reported) Entered as Reported by: NGOC BUTCHER on 11/24/21 0945 Fluticasone/Salmeterol (Advair 500-50 Diskus) 1 Each Blst.w.dev, 1 EACH IH BID PRN for SHORTNESS OF BREATH, (Reported) Entered as Reported by: JAMIL CHAN on 08/25/21 1241 Levothyroxine Sodium (Levothyroxine Sodium) 137 Mcg Tablet, 137 MCG PO DAILY, (Reported) Entered as Reported by: JAMIL CHAN on 08/25/21 1239 Metoprolol Succinate (Metoprolol Succinate) 25 Mg Tab.er.24h, 25 MG PO DAILY, (Reported) Entered as Reported by: JAMIL CHAN on 08/25/21 1239 Review of Systems Constitutional: no symptoms reported EENTM: no symptoms reported Respiratory: no symptoms reported Cardiovascular: chest pain Gastrointestinal: other (Rectal bleeding) Genitourinary: no symptoms reported Musculoskeletal: no symptoms reported Skin: no symptoms reported Psychiatric/Neurological: No Symptoms Reported Past Jfgucnv-Cseywm-Zvqwyl Hx Immunizations Up To Date Tetanus Booster (TDap): Less than 5yrs PED Vaccines UTD: Yes First/Initial COVID19 Vaccinat: 2020 Second COVID19 Vaccination Elian: 2020 Third COVID19 Vaccination Date: NO Seasonal Allergies Seasonal Allergies: No (SEASONAL) Past Medical History Surgery/Hospitalization HX: COPD, hypothyroid, CHRONIC CP Surgeries: Yes (HEART CATH 2012--NORMAL) Cardiac Respiratory: Yes (COVID-19 infection 2020) Sleep Apnea, COPD Currently Using CPAP: Yes Currently Using BIPAP: No Cardiac: Yes Hypertension Neurological: No Reproductive Disorders: No Genitourinary: No Gastrointestinal: No Musculoskeletal: No Endocrine: Yes Hypothyroidsim HEENT: No Cancer: No Psychosocial: Yes Anxiety Integumentary: No Blood Disorders: No Family Medical History Reviewed Nursing Family Hx No Pertinent Family Hx, Heart Disease STRESS TEST 08/24/[address] ROJO: IMPRESSION: 1. Normal heart rate and a blunted blood pressure response to regadenoson. 2. There was no chest discomfort, arrhythmias, or electrocardiogram changes during the test. 3. There was normal myocardial perfusion in all segments without evidence of infarction or ischemia. 4. There was normal wall motion in all segments with a calculated ejection fraction of 70%. HAD NORMAL CARDIAC CATH IN 2013 Physical Exam Vital Signs Vital Signs - First Documented 02/13/22 09:50 Temp 36.7 Pulse 84 Resp 17 B/P (MAP) 158/102 (120) Pulse Ox 96 O2 Delivery Room Air Capillary Refill : Height, Weight, BMI Height: 5'9.00" Weight: 210lbs. 0oz. 95.626812kd; 37.00 BMI Method:Stated General Appearance: No Apparent Distress, WD/WN HEENT: PERRL/EOMI, Normal ENT Inspection, Pharynx Normal Neck: Full Range of Motion, Normal Inspection, Non Tender, Supple Cardiovascular: Regular Rate, Rhythm, No Edema, No Gallop, No JVD, No Murmur, Normal Peripheral Pulses Respiratory: Chest Non Tender, Lungs Clear, Normal Breath Sounds, No Accessory Muscle Use, No Respiratory Distress Gastrointestinal: Normal Bowel Sounds, No Organomegaly, No Pulsatile Mass, Non Tender, Soft Back: Normal Inspection, No CVA Tenderness, No Vertebral Tenderness Neurologic/Psychiatric: Alert, No Motor/Sensory Deficits, Normal Mood/Affect Cranial Nerves: Normal Hearing, Normal Speech Skin: Normal Color, Warm/Dry Progress/Results/Core Measures Results/Orders Lab Results Laboratory Tests Test 02/13/22 09:53 02/13/22 12:35 Range/Units White Blood Count 8.7 4.3-11.0 10^3/uL Red Blood Count 4.95 4.30-5.52 10^6/uL Hemoglobin 14.0 13.3-17.7 g/dL Hematocrit 44 40-54 % Mean Corpuscular Volume 88 80-99 fL Mean Corpuscular Hemoglobin 28 25-34 pg Mean Corpuscular Hemoglobin Concent 32 32-36 g/dL Red Cell Distribution Width 13.3 10.0-14.5 % Platelet Count 299 130-400 10^3/uL Mean Platelet Volume 9.6 9.0-12.2 fL Immature Granulocyte % (Auto) 0 % Neutrophils (%) (Auto) 66 42-75 % Lymphocytes (%) (Auto) 21 12-44 % Monocytes (%) (Auto) 5 0-12 % Eosinophils (%) (Auto) 7 0-10 % Basophils (%) (Auto) 1 0-10 % Neutrophils # (Auto) 5.7 1.8-7.8 10^3/uL Lymphocytes # (Auto) 1.8 1.0-4.0 10^3/uL Monocytes # (Auto) 0.4 0.0-1.0 10^3/uL Eosinophils # (Auto) 0.6 H 0.0-0.3 10^3/uL Basophils # (Auto) 0.1 0.0-0.1 10^3/uL Immature Granulocyte # (Auto) 0.0 0.0-0.1 10^3/uL Sodium Level 139 135-145 MMOL/L Potassium Level 4.0 3.6-5.0 MMOL/L Chloride Level 103 98-107 MMOL/L Carbon Dioxide Level 26 21-32 MMOL/L Anion Gap 10 5-14 MMOL/L Blood Urea Nitrogen 11 7-18 MG/DL Creatinine 1.07 0.60-1.30 MG/DL Estimat Glomerular Filtration Rate 89 BUN/Creatinine Ratio 10 Glucose Level 114 H 70-105 MG/DL Calcium Level 9.5 8.5-10.1 MG/DL Corrected Calcium 9.3 8.5-10.1 MG/DL Magnesium Level 1.9 1.6-2.4 MG/DL Total Bilirubin 0.3 0.1-1.0 MG/DL Aspartate Amino Transf (AST/SGOT) 17 5-34 U/L Alanine Aminotransferase (ALT/SGPT) 24 0-55 U/L Alkaline Phosphatase 117 40-136 U/L Troponin I < 0.028 < 0.028 <0.028 NG/ML Total Protein 8.1 6.4-8.2 GM/DL Albumin 4.2 3.2-4.5 GM/DL My Orders Orders - GEORGIA HOGAN DO Ekg Tracing (02/13/22 09:49) Cbc With Automated Diff (02/13/22 09:54) Magnesium (02/13/22 09:54) Chest 1 View, Ap/Pa Only (02/13/22 09:54) Comprehensive Metabolic Panel (02/13/22 09:54) Monitor-Rhythm Ecg Trace Only (02/13/22 09:54) Ed Iv/Invasive Line Start (02/13/22 09:54) Troponin I [place] (02/13/22 09:54) Aspirin Chewable Tablet (Baby Aspirin Ch (02/13/22 10:00) Troponin I [place] (02/13/22 12:00) Medications Given in ED Current Medications Medications Dose Ordered Sig/Anatoly Route Start Time Stop Time Status Last Admin Dose Admin Aspirin 324 mg ONCE ONCE PO 02/13/22 10:00 02/13/22 10:01 DC 02/13/22 10:04 324 MG Vital Signs/I&O 02/13/22 09:50 Temp 36.7 Pulse 84 Resp 17 B/P (MAP) 158/102 (120) Pulse Ox 96 O2 Delivery Room Air EKG : Comment Sinus rhythm with a rate of 82 bpm. Normal intervals. Normal axis. No ST or T wave abnormalities. No ectopy. Departure Impression Primary Impression: Syncope Qualified Codes: R55 - Syncope and collapse Additional Impression: Chest pain Qualified Codes: R07.9 - Chest pain, unspecified Departure-Patient Inst. Referrals: [facility] (PCP) Primary Care Physician JOSE LUIS HAYDEN APRN (Family) Primary Care Physician Patient Instructions: Chest Pain, Syncope (Fainting), Opioids for Short-Term Treatment of Pain ED Add. Discharge Instructions: Medication fluids at home and rest. Follow-up with your heart doctor to call to schedule an appointment. Call your primary doctor to schedule an appointment in the next 48 to 72 hours. Return to the emergency department for any severe concerns All discharge instructions reviewed with patient and/or family. Voiced understanding. GEORGIA HOGAN DO Feb 13, 2022 10:00
[2022-02-13 10:01] LABS: BASOPHILS # (AUTO) 0.1 10^3/uL (0.0-0.1); BASOPHILS % (AUTO) 1 % (0-10); EOSINOPHILS # (AUTO) 0.6 10^3/uL (0.0-0.3); EOSINOPHILS % (AUTO) 7 % (0-10); HEMATOCRIT 44 % (40-54); LYMPHOCYTES # (AUTO) 1.8 10^3/uL (1.0-4.0); LYMPHOCYTES % (AUTO) 21 % (12-44); MEAN CORPUSCULAR HEMOGLOBIN 28 pg (25-34); MEAN CORPUSCULAR HGB CONC 32 g/dL (32-36); MEAN CORPUSCULAR VOLUME 88 fL (80-99); MEAN PLATELET VOLUME 9.6 fL (9.0-12.2); MONOCYTES # (AUTO) 0.4 10^3/uL (0.0-1.0); MONOCYTES % (AUTO) 5 % (0-12); NEUTROPHILS # (AUTO) 5.7 10^3/uL (1.8-7.8); NEUTROPHILS % (AUTO) 66 % (42-75); PLATELET COUNT 299 10^3/uL (130-400); WHITE BLOOD COUNT 8.7 10^3/uL (4.3-11.0)
[2022-02-13 10:30] LABS: ALBUMIN 4.2 GM/DL (3.2-4.5)
[2022-02-13 10:32] LABS: CALCIUM 9.5 MG/DL (8.5-10.1)
[2022-02-13 10:33] LABS: TOTAL PROTEIN 8.1 GM/DL (6.4-8.2)
[2022-02-13 10:35] LABS: BILIRUBIN,TOTAL 0.3 MG/DL (0.1-1.0)
[2022-02-13 10:36] LABS: CREATININE SERUM 1.07 MG/DL (0.60-1.30)
--- NOTE | 2022-02-13 10:36 | Diagnostic Imaging Report ---
Indication: Chest pain. Comparison: 01/23/2022. Discussion: Single portable upright view of the chest was obtained. Normal heart size. No consolidation, pleural fluid, or pneumothorax. No osseous abnormality. Impression: 1. Negative chest. Dictated by: Dictated on workstation # [id number]
[2022-02-13 10:39] LABS: MAGNESIUM 1.9 MG/DL (1.6-2.4)
[2022-02-13 13:22] VITALS: BP 139/92
== END 2022-02-13 13:22 | disposition home or self-care (01) ==
LOC: EDUNIT# 09:45 → ER 09:48
DX: R55 Syncope and collapse (principal); R07.89 Other chest pain; G47.30 Sleep apnea, unspecified; Z95.9 Presence of cardiac and vascular implant and graft, unspecified; Z99.89 Dependence on other enabling machines and devices; Z86.79 Personal history of other diseases of the circulatory system
CPT/HCPCS: 36415; 71045; 80053; 83735; 84484; 85025; 93005; 93041

== ENCOUNTER → 2022-02-14 | Outpatient (CLI) | payer OTHER | LOC: LAB 16:25 | PROVIDERS: ATTEND Surgery | DX: A04.8 Other specified bacterial intestinal infections (principal) ==

== ENCOUNTER 2022-03-02 13:32 | Emergency (ER) | payer OTHER ==
[~2022-03-02] VITALS: Ht 175.3 cm; Wt 115.2 kg
--- NOTE | 2022-03-02 13:44 | ED Chest Pain ---
General Chief Complaint: Chest Pain Stated Complaint: CHEST PAIN Nursing Triage Note: PT BROUGHT IN BY [facility] FROM [facility] WITH COMPLAINT OF CP. STATES HE HAS NOT BEEN FEELING WELL AND HAS HAD CP FOR A COUPLE DAYS. STATES HE TOOK A NITRO YESTERDAY AT HOME AND FELT BETTER. Source: patient, family Exam Limitations: no limitations History of Present Illness Date Seen by Provider: Mar 02, 2022 Time Seen by Provider: 13:35 Initial Comments Patient is a 42 yo M who presents to the ED via EMS with chest pain that began yesterday. State the chest pain is located in his left chest. He states the pain is consistent with past episodes of chest pain. Patient was seen at his PCP where they felt he would benefit from ED evaluation. Pt has been seen in the ED numerous times in the past for chest pain. He states the pain is better today than yesterday. He denies any shortness of air. Denies any aggravating or alleviating factors. States he took a nitro sublingual yesterday with some improvement in the pain. 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 States he also has general malaise and fatigue. No known sick contacts. Timing/Duration: 1-2 days Severity/Quality: mild Location: other (left anterior chest) Radiation: no radiation Activities at Onset: none Prior CP/Workup: cardiac cath ASA po LAWNMOWER MECHANIC: No NTG SL LAWNMOWER MECHANIC: No Associated Symptoms: No diaphoresis, No dizziness; fatigue; No fever/chills, No nausea/vomiting, No shortness of breath, No syncope Allergies and Home Medications Allergies Coded Allergies: No Known Drug Allergies (Unverified , 05/04/11) Patient Home Medication List Home Medication List Reviewed: Yes Albuterol Sulfate (Albuterol Sulfate) 2.5 Mg/0.5 Ml Vial.neb, 2.5 MG INH Q6H PRN for SHORTNESS OF BREATH, (Reported) Entered as Reported by: JAMIL CHAN on 08/25/21 1239 Albuterol Sulfate (Ventolin Hfa) 1 Puff Puff, 2 PUFF INH Q4H PRN for SHORTNESS OF BREATH, (Reported) Entered as Reported by: JAMIL CHAN on 08/25/21 1239 Cetirizine HCl (Cetirizine HCl) 10 Mg Tablet, 10 MG PO DAILY, (Reported) Entered as Reported by: JAMIL CHAN on 08/25/21 1239 Fluticasone Propionate (Flonase Allergy Relief) 50 Mcg/Actuation Jenkins.susp, 1 SPRAY NS DAILY, (Reported) Entered as Reported by: NGOC BUTCHER on 11/24/21 0945 Fluticasone/Salmeterol (Advair 500-50 Diskus) 1 Each Blst.w.dev, 1 EACH IH BID PRN for SHORTNESS OF BREATH, (Reported) Entered as Reported by: JAMIL CHAN on 08/25/21 1241 Levothyroxine Sodium (Levothyroxine Sodium) 137 Mcg Tablet, 137 MCG PO DAILY, (Reported) Entered as Reported by: JAMIL CHAN on 08/25/21 1239 Metoprolol Succinate (Metoprolol Succinate) 25 Mg Tab.er.24h, 25 MG PO DAILY, (Reported) Entered as Reported by: JAMIL CHAN on 08/25/21 1239 Review of Systems Review of Systems Constitutional: No fever; malaise EENTM: No Symptoms Reported Respiratory: No Symptoms Reported Cardiovascular: Chest Pain; Denies Edema, Denies Irregular Heart Rate, Denies Lightheadedness, Denies Palpitations, Denies Syncope Gastrointestinal: No Symptoms Reported Musculoskeletal: no symptoms reported Skin: no symptoms reported Psychiatric/Neurological: No Symptoms Reported Past Lijinjg-Zblwdc-Dvimak Hx Patient Social History Tobacco Use?: No Use of E-Cig and/or Vaping dev: No Substance use?: No Alcohol Use?: Yes Alcohol Frequency: Once in a while Pt feels they are or have been: No Immunizations Up To Date Tetanus Booster (TDap): Less than 5yrs PED Vaccines UTD: Yes First/Initial COVID19 Vaccinat: 2020 Second COVID19 Vaccination Elian: 2020 Third COVID19 Vaccination Date: 2021 Seasonal Allergies Seasonal Allergies: No (SEASONAL) Past Medical History Surgery/Hospitalization HX: COPD, hypothyroid, HTN, CHRONIC CP Surgeries: Yes (HEART CATH 2012--NORMAL) Cardiac Respiratory: Yes (COVID-19 infection 2020) Sleep Apnea, COPD Currently Using CPAP: Yes Currently Using BIPAP: No Cardiac: Yes Hypertension Neurological: No Reproductive Disorders: No Genitourinary: No Gastrointestinal: No Musculoskeletal: No Endocrine: Yes Hypothyroidsim HEENT: No Cancer: No Psychosocial: Yes Anxiety Integumentary: No Blood Disorders: No Family Medical History No Pertinent Family Hx, Heart Disease STRESS TEST 08/24/[address] ROJO: IMPRESSION: 1. Normal heart rate and a blunted blood pressure response to regadenoson. 2. There was no chest discomfort, arrhythmias, or electrocardiogram changes during the test. 3. There was normal myocardial perfusion in all segments without evidence of infarction or ischemia. 4. There was normal wall motion in all segments with a calculated ejection fraction of 70%. HAD NORMAL CARDIAC CATH IN 2012 Physical Exam Vital Signs Vital Signs - First Documented 03/02/22 13:32 Pulse 56 Resp 28 B/P (MAP) 140/96 (111) Pulse Ox 100 O2 Delivery Room Air Capillary Refill : Less Than 3 Seconds Height, Weight, BMI Height: 5'9.00" Weight: 210lbs. 0oz. [id number]; 37.00 BMI Method:Stated General Appearance: No Apparent Distress, WD/WN HEENT: PERRL/EOMI, TMs Normal, Normal ENT Inspection, Pharynx Normal Neck: Full Range of Motion, Normal Inspection, Non Tender Respiratory: Chest Non Tender, Lungs Clear, Normal Breath Sounds, No Accessory Muscle Use, No Respiratory Distress Cardiovascular: Regular Rate, Rhythm, No Edema, No Gallop, No JVD, No Murmur, Normal Peripheral Pulses Gastrointestinal: Normal Bowel Sounds, No Organomegaly, No Pulsatile Mass, Non Tender Extremity: Normal Capillary Refill, Normal Inspection, Normal Range of Motion, Non Tender, No Calf Tenderness, No Pedal Edema Neurologic/Psychiatric: Alert, Oriented x3, No Motor/Sensory Deficits, Normal Mood/Affect Skin: Normal Color, Warm/Dry Progress/Results/Core Measures Results/Orders Lab Results Laboratory Tests Test 03/02/22 14:17 Range/Units White Blood Count 8.4 4.3-11.0 10^3/uL Red Blood Count 4.27 L 4.30-5.52 10^6/uL Hemoglobin 12.2 L 13.3-17.7 g/dL Hematocrit 38 L 40-54 % Mean Corpuscular Volume 88 80-99 fL Mean Corpuscular Hemoglobin 29 25-34 pg Mean Corpuscular Hemoglobin Concent 32 32-36 g/dL Red Cell Distribution Width 13.2 10.0-14.5 % Platelet Count 247 130-400 10^3/uL Mean Platelet Volume 10.3 9.0-12.2 fL Immature Granulocyte % (Auto) 0 % Neutrophils (%) (Auto) 63 42-75 % Lymphocytes (%) (Auto) 26 12-44 % Monocytes (%) (Auto) 5 0-12 % Eosinophils (%) (Auto) 5 0-10 % Basophils (%) (Auto) 1 0-10 % Neutrophils # (Auto) 5.3 1.8-7.8 10^3/uL Lymphocytes # (Auto) 2.2 1.0-4.0 10^3/uL Monocytes # (Auto) 0.5 0.0-1.0 10^3/uL Eosinophils # (Auto) 0.4 H 0.0-0.3 10^3/uL Basophils # (Auto) 0.1 0.0-0.1 10^3/uL Immature Granulocyte # (Auto) 0.0 0.0-0.1 10^3/uL Prothrombin Time 12.7 12.2-14.7 SEC INR Comment 0.9 0.8-1.4 Activated Partial Thromboplast Time 28 24-35 SEC Sodium Level 141 135-145 MMOL/L Potassium Level 3.4 L 3.6-5.0 MMOL/L Chloride Level 108 H 98-107 MMOL/L Carbon Dioxide Level 24 21-32 MMOL/L Anion Gap 9 5-14 MMOL/L Blood Urea Nitrogen 12 7-18 MG/DL Creatinine 0.78 0.60-1.30 MG/DL Estimat Glomerular Filtration Rate 114 BUN/Creatinine Ratio 15 Glucose Level 99 70-105 MG/DL Calcium Level 9.2 8.5-10.1 MG/DL Corrected Calcium 9.4 8.5-10.1 MG/DL Magnesium Level 1.8 1.6-2.4 MG/DL Total Bilirubin 0.3 0.1-1.0 MG/DL Aspartate Amino Transf (AST/SGOT) 16 5-34 U/L Alanine Aminotransferase (ALT/SGPT) 19 0-55 U/L Alkaline Phosphatase 89 40-136 U/L Troponin I < 0.028 <0.028 NG/ML B-Type Natriuretic Peptide 34.8 <100.0 PG/ML Total Protein 7.0 6.4-8.2 GM/DL Albumin 3.7 3.2-4.5 GM/DL My Orders Orders - SUKUMAR EVANS JAREN Cbc With Automated Diff (03/02/22 13:40) Magnesium (03/02/22 13:40) Chest 1 View, Ap/Pa Only (03/02/22 13:40) Ekg Tracing (03/02/22 13:40) Comprehensive Metabolic Panel (03/02/22 13:40) Protime With Inr (03/02/22 13:40) Partial Thromboplastin Time (03/02/22 13:40) O2 (03/02/22 13:40) Monitor-Rhythm Ecg Trace Only (03/02/22 13:40) Ed Iv/Invasive Line Start (03/02/22 13:40) Bnp [place] (03/02/22 13:40) Troponin I [place] (03/02/22 13:40) Nitroglycerin 0.4 Mg Btl 25's (Nitrostat (03/02/22 13:45) Medications Given in ED Current Medications Medications Dose Ordered Sig/Anatoly Route Start Time Stop Time Status Last Admin Dose Admin Nitroglycerin 0.4 mg UD PRN SL 03/02/22 13:45 03/02/22 14:11 0.4 MG Vital Signs/I&O 03/02/22 13:32 Pulse 56 Resp 28 B/P (MAP) 140/96 (111) Pulse Ox 100 O2 Delivery Room Air Blood Pressure Mean: 111 Progress Progress Note : Progress Note Pt is nontoxic and well hydrated on exam. Vital signs are reassuring. No acute ischemic change or arrhythmia noted on EKG. Cardiopulmonary exam is reassuring. Chest xray is acutely negative. Troponin negative. Repeat not indicated as patient has had the pain for over 24 hours. Patient is overall low risk for ACS. Will d/c home with recs for supportive care and follow-up with PCP for persistent symptoms. Return precautions for urgent symptomology discussed. Patient verbalized understanding. Initial ECG Impression Date: Mar 02, 2022 Initial ECG Impression Time: 13:38 Initial ECG Rhythm: S.Pranav Initial ECG Intervals: Normal Initial ECG Impression: Nonspecific Changes, Sinus Bradycardia Departure Impression Primary Impression: Atypical chest pain Disposition: HOME, SELF-CARE Condition: Stable Departure-Patient Inst. Decision time for Depature: 15:30 Referrals: [facility] (PCP) Primary Care Physician JOSE LUIS HAYDEN APRN (Family) Primary Care Physician Patient Instructions: Chest Pain (DC) SUKUMAR EVANS APRN Mar 02, 2022 13:44
[2022-03-02] MEDS ORDERED: NITROGLYCERIN 0.4 MG SL TABS BTL 25'S SL PRN (13:45)
--- NOTE | 2022-03-02 14:12 | Diagnostic Imaging Report ---
HISTORY: Chest pain. TECHNIQUE: Frontal view of the chest. COMPARISON: 02/13/2022. FINDINGS: Lung volumes are normal. No consolidation is seen. There is no pleural effusion or pneumothorax. The cardiac silhouette is normal in size for portable technique. IMPRESSION: 1. No acute pulmonary abnormality is seen. Dictated by: Dictated on workstation # [id number]
[2022-03-02 14:23] LABS: BASOPHILS # (AUTO) 0.1 10^3/uL (0.0-0.1); BASOPHILS % (AUTO) 1 % (0-10); EOSINOPHILS # (AUTO) 0.4 10^3/uL (0.0-0.3); EOSINOPHILS % (AUTO) 5 % (0-10); HEMATOCRIT 38 % (40-54); HEMOGLOBIN 12.2 g/dL (13.3-17.7); LYMPHOCYTES # (AUTO) 2.2 10^3/uL (1.0-4.0); LYMPHOCYTES % (AUTO) 26 % (12-44); MEAN CORPUSCULAR HEMOGLOBIN 29 pg (25-34); MEAN CORPUSCULAR HGB CONC 32 g/dL (32-36); MEAN CORPUSCULAR VOLUME 88 fL (80-99); MEAN PLATELET VOLUME 10.3 fL (9.0-12.2); MONOCYTES # (AUTO) 0.5 10^3/uL (0.0-1.0); MONOCYTES % (AUTO) 5 % (0-12); NEUTROPHILS # (AUTO) 5.3 10^3/uL (1.8-7.8); NEUTROPHILS % (AUTO) 63 % (42-75); PLATELET COUNT 247 10^3/uL (130-400); WHITE BLOOD COUNT 8.4 10^3/uL (4.3-11.0)
[2022-03-02 14:31] LABS: ALBUMIN 3.7 GM/DL (3.2-4.5)
[2022-03-02 14:32] LABS: POTASSIUM 3.4 MMOL/L (3.6-5.0)
[2022-03-02 14:33] LABS: CALCIUM 9.2 MG/DL (8.5-10.1)
[2022-03-02 14:36] LABS: BILIRUBIN,TOTAL 0.3 MG/DL (0.1-1.0)
[2022-03-02 14:38] LABS: CREATININE SERUM 0.78 MG/DL (0.60-1.30)
[2022-03-02 14:39] LABS: INR 0.9 (0.8-1.4); PROTHROMBIN TIME PATIENT 12.7 SEC (12.2-14.7)
[2022-03-02 14:41] LABS: MAGNESIUM 1.8 MG/DL (1.6-2.4)
[2022-03-02 16:14] VITALS: BP 116/76
== END 2022-03-02 16:12 | disposition home or self-care (01) ==
LOC: EDUNIT# 13:33 → ER 13:38
DX: R07.89 Other chest pain (principal); G47.30 Sleep apnea, unspecified; Z98.61 Coronary angioplasty status; Z99.89 Dependence on other enabling machines and devices; Z86.16 Personal history of COVID-19
CPT/HCPCS: 36415; 71045; 80053; 83735; 83880; 84484; 85025; 85610; 85730; 93005; 93041

== ENCOUNTER → 2022-03-17 | Outpatient (CLI) | payer OTHER | LOC: RT 08:00 | PROVIDERS: ATTEND Nurse Practitioner Family | DX: I34.0 Nonrheumatic mitral (valve) insufficiency (principal); J44.9 Chronic obstructive pulmonary disease, unspecified; G47.33 Obstructive sleep apnea (adult) (pediatric); I51.7 Cardiomegaly | CPT/HCPCS: 93306 ==

== ENCOUNTER 2022-05-15 12:09 | Emergency (ER) | payer OTHER ==
[~2022-05-15] VITALS: Ht 175 cm; Wt 120.0 kg
[~2022-05-15 12:09] MED LIST changes: -DOXY-311 PO; +DOXY-444 PO
--- NOTE | 2022-05-15 13:43 | ED General ---
General Chief Complaint: Cough/Cold/Flu Symptoms Stated Complaint: CONGESTION | COUGH | VOMITING Nursing Triage Note: cough, congestion, soa, vomiting, and chilling. Was ER at [facility] sunday for copd flare up. Source of Information: Patient Exam Limitations: No Limitations History of Present Illness Date Seen by Provider: May 15, 2022 Time Seen by Provider: 13:42 Initial Comments To ER with cough congestion vomiting chilling. Seen at [facility] ER 7 days ago for COPD exacerbation. Timing/Duration: 1 Week Severity: Moderate Associated Systoms: Cough Allergies and Home Medications Allergies Coded Allergies: No Known Drug Allergies (Unverified , 05/04/11) Patient Home Medication List Home Medication List Reviewed: Yes Albuterol Sulfate (Albuterol Sulfate) 2.5 Mg/0.5 Ml Vial.neb, 2.5 MG INH Q6H PRN for SHORTNESS OF BREATH, (Reported) Entered as Reported by: JAMIL CHAN on 08/25/21 1239 Albuterol Sulfate (Ventolin Hfa) 1 Puff Puff, 2 PUFF INH Q4H PRN for SHORTNESS OF BREATH, (Reported) Entered as Reported by: JAMIL CHAN on 08/25/21 1239 Cetirizine HCl (Cetirizine HCl) 10 Mg Tablet, 10 MG PO DAILY, (Reported) Entered as Reported by: JAMIL CHAN on 08/25/21 1239 Fluticasone Propionate (Flonase Allergy Relief) 50 Mcg/Actuation Victor.susp, 1 SPRAY NS DAILY, (Reported) Entered as Reported by: NGOC BUTCHER on 11/24/21 0945 Fluticasone/Salmeterol (Advair 500-50 Diskus) 1 Each Blst.w.dev, 1 EACH IH BID PRN for SHORTNESS OF BREATH, (Reported) Entered as Reported by: JAMIL CHAN on 08/25/21 1241 Levothyroxine Sodium (Levothyroxine Sodium) 137 Mcg Tablet, 137 MCG PO DAILY, (Reported) Entered as Reported by: JAMIL CHAN on 08/25/21 1239 Metoprolol Succinate (Metoprolol Succinate) 25 Mg Tab.er.24h, 25 MG PO DAILY, (Reported) Entered as Reported by: JAMIL CHAN on 08/25/21 1239 Review of Systems Review of Systems Constitutional: see HPI EENTM: see HPI Respiratory: see HPI, cough, short of breath Cardiovascular: no symptoms reported Genitourinary: no symptoms reported Musculoskeletal: no symptoms reported Skin: no symptoms reported Psychiatric/Neurological: No Symptoms Reported Hematologic/Lymphatic: No Symptoms Reported Immunological/Allergic: no symptoms reported Past Puinhme-Ueulqy-Wvzrzq Hx Patient Social History Tobacco Use?: No Substance use?: No Alcohol Use?: No Immunizations Up To Date Tetanus Booster (TDap): Less than 5yrs PED Vaccines UTD: Yes First/Initial COVID19 Vaccinat: unknown Second COVID19 Vaccination Elian: 2020 Third COVID19 Vaccination Date: 2021 COVID19 Vaccine Cleaner And Preparer: unknown Seasonal Allergies Seasonal Allergies: No (SEASONAL) Past Medical History Surgery/Hospitalization HX: COPD, hypothyroid, HTN, CHRONIC CP Surgeries: Yes (HEART CATH 2012--NORMAL) Cardiac Respiratory: Yes (COVID-19 infection 2020) Sleep Apnea, COPD Currently Using CPAP: Yes Currently Using BIPAP: No Cardiac: Yes Hypertension Neurological: No Reproductive Disorders: No Genitourinary: No Gastrointestinal: No Musculoskeletal: No Endocrine: Yes Hypothyroidsim HEENT: No Cancer: No Psychosocial: Yes Anxiety Integumentary: No Blood Disorders: No Family Medical History No Pertinent Family Hx, Heart Disease STRESS TEST 08/24/[address] ROJO: IMPRESSION: 1. Normal heart rate and a blunted blood pressure response to regadenoson. 2. There was no chest discomfort, arrhythmias, or electrocardiogram changes during the test. 3. There was normal myocardial perfusion in all segments without evidence of infarction or ischemia. 4. There was normal wall motion in all segments with a calculated ejection fraction of 70%. HAD NORMAL CARDIAC CATH IN 2012 Physical Exam Vital Signs Vital Signs - First Documented 05/15/22 12:17 Temp 37.0 Pulse 75 Resp 16 B/P (MAP) 151/96 (114) Pulse Ox 99 O2 Delivery Room Air Capillary Refill : Less Than 3 Seconds Height, Weight, BMI Height: 5'9.00" Weight: 210lbs. 0oz. 95.098826vt; 39.00 BMI Method:Stated General Appearance: No Apparent Distress, WD/WN Eyes: Bilateral Eye Normal Inspection, Bilateral Eye PERRL, Bilateral Eye EOMI HEENT: PERRL/EOMI, TMs Normal Neck: Full Range of Motion, Normal Inspection Respiratory: No Accessory Muscle Use, No Respiratory Distress Cardiovascular: Regular Rate, Rhythm, Normal Peripheral Pulses Gastrointestinal: Normal Bowel Sounds, Non Tender, Soft Neurologic/Psychiatric: Alert, Oriented x3 Progress/Results/Core Measures Suspected Sepsis SIRS Temperature: Pulse: 75 Respiratory Rate: 16 Blood Pressure 151 /96 Mean: 114 Results/Orders Lab Results Laboratory Tests Test 05/15/22 12:53 Range/Units Influenza Type A (RT-PCR) Not Detected Not Detecte Influenza Type B (RT-PCR) Not Detected Not Detecte SARS-CoV-2 RNA (RT-PCR) Detected H Not Detecte My Orders Orders - KEIRA PENA APRN Arterial Blood Gas (05/15/22 13:00) Chest 1 View, Ap/Pa Only (05/15/22 13:00) Covid 19 Inhouse Test (05/15/22 13:00) Influenza A And B By Pcr (05/15/22 13:00) Vital Signs/I&O 05/15/22 12:17 Temp 37.0 Pulse 75 Resp 16 B/P (MAP) 151/96 (114) Pulse Ox 99 O2 Delivery Room Air Capillary Refill : Less Than 3 Seconds Blood Pressure Mean: 114 Departure Impression Primary Impression: COVID-19 virus infection Disposition: 01 HOME, SELF-CARE Condition: Stable Departure-Patient Inst. Decision time for Depature: 13:52 Referrals: [facility]/ (PCP) Primary Care Physician JOSE LUIS HAYDEN APRN (Family) Primary Care Physician Patient Instructions: COVID-19 ED Add. Discharge Instructions: 1. Continue current medications. Take the Paxlovid as directed. All discharge instructions reviewed with patient and/or family. Voiced understanding. Scripts Nirmatrelvir/Ritonavir (Paxlovid 300-100 mg Pack (Eua)) 300 Mg (150 Mg X 2)-100 Mg Tab.ds.pk 1 EACH PO BID for 5 Days, #1 PKG Prov: KEIRA PENA APRN 05/15/22 Work/School Note: Work Release Form Date Seen in the Emergency Department: May 15, 2022 Return to Work: May 19, 2022 KEIRA PENA APRN May 15, 2022 13:43
[2022-05-15] MEDS ORDERED: NIRM1TAB PO (13:55)
--- NOTE | 2022-05-15 13:55 | Diagnostic Imaging Report ---
Indication: Cough. Comparison is made with prior examination of 02/28/2022. Findings: There is cardiomegaly. The mediastinum is unremarkable. There is no pleural effusion, pneumothorax or pneumonia. Impression: Cardiomegaly. No acute cardiopulmonary abnormality.. Dictated by: Dictated on workstation # [id number]
[2022-05-15 14:01] VITALS: BP 145/100
== END 2022-05-15 14:01 | disposition home or self-care (01) ==
LOC: EDUNIT# 12:09 → ER 12:11
DX: U07.1 COVID-19 (principal); Z28.310 Unvaccinated for COVID-19
CPT/HCPCS: 71045; 87636

== ENCOUNTER 2022-06-19 17:16 | Emergency (ER) | payer SELFPAY ==
[~2022-06-19] VITALS: Ht 175 cm; Wt 114.7 kg
[~2022-06-19 17:16] MED LIST changes: +NIRM1TAB PO
[2022-06-19] MEDS ORDERED: methylPREDNISolone 125 MG (Solu-MEDROL) VIAL IV STA (17:38)
[2022-06-19] MEDS ORDERED: RT-ALBUTEROL/IPRATROPIUM 3 ML (DUONEB) VIAL INH ONE ×2 (17:45→19:15)
[2022-06-19 17:49] LABS: BASOPHILS # (AUTO) 0.1 10^3/uL (0.0-0.1); BASOPHILS % (AUTO) 1 % (0-10); EOSINOPHILS # (AUTO) 0.6 10^3/uL (0.0-0.3); EOSINOPHILS % (AUTO) 7 % (0-10); HEMATOCRIT 41 % (40-54); LYMPHOCYTES # (AUTO) 2.3 10^3/uL (1.0-4.0); LYMPHOCYTES % (AUTO) 26 % (12-44); MEAN CORPUSCULAR HEMOGLOBIN 28 pg (25-34); MEAN CORPUSCULAR HGB CONC 32 g/dL (32-36); MEAN CORPUSCULAR VOLUME 89 fL (80-99); MONOCYTES # (AUTO) 0.5 10^3/uL (0.0-1.0); MONOCYTES % (AUTO) 6 % (0-12); NEUTROPHILS # (AUTO) 5.3 10^3/uL (1.8-7.8); NEUTROPHILS % (AUTO) 60 % (42-75); PLATELET COUNT 238 10^3/uL (130-400); WHITE BLOOD COUNT 8.8 10^3/uL (4.3-11.0)
[2022-06-19 17:54] LABS: CHLORIDE 106 MMOL/L (98-107); POTASSIUM 4.1 MMOL/L (3.6-5.0); SODIUM 139 MMOL/L (135-145)
[2022-06-19 17:55] LABS: CALCIUM 9.3 MG/DL (8.5-10.1)
[2022-06-19 17:56] LABS: GLUCOSE 82 MG/DL (70-105); TOTAL PROTEIN 7.6 GM/DL (6.4-8.2)
[2022-06-19 17:57] LABS: CARBON DIOXIDE 24 MMOL/L (21-32)
[2022-06-19 17:58] LABS: BILIRUBIN,TOTAL 0.4 MG/DL (0.1-1.0)
[2022-06-19 17:59] LABS: ALKALINE PHOSPHATASE 104 U/L (40-136)
[2022-06-19 18:00] LABS: CREATININE SERUM 1.05 MG/DL (0.60-1.30); GFR ESTIMATED 91
[2022-06-19 18:01] LABS: BUN/CREATININE RATIO 10
[2022-06-19 18:03] LABS: ALANINE AMINOTRANSFERASE 29 U/L (0-55); MAGNESIUM 1.9 MG/DL (1.6-2.4)
--- NOTE | 2022-06-19 18:50 | ED Respiratory ---
General Chief Complaint: Respiratory Problems Stated Complaint: COPD,SOA Nursing Triage Note: PT AMBULATORY TO ER. PT REPORTS SHORTNESS OF BREATH ONSET SEVERAL WEEKS AGO, WORSE WITH ANY TYPE OF EXERTION. PT REPORTS 02 LEVELS AT HOME HAVE BEEN STAYING ABOBE 90% BUT FEELS LIKE HE CAN'T CATCH HIS BREATH. PT DOES HAVE A HX OF COPD. PT COMPLETED A COURSE OF PREDNISONE, NO CHANGE IN S/S. PT DOING HOME BREATHING TREATMENTS, REPORTS NO IMPROVEMENT OF SOB. PT WAS TESTED FOR COVID TODAY AT WORK, NEGATIVE. Source: patient Exam Limitations: no limitations History of Present Illness Date Seen by Provider: Jun 19, 2022 Time Seen by Provider: 17:25 Initial Comments History obtained from patient. Patient is a 42-year-old male who presents to the emergency department with shortness of breath over the last several weeks. States the symptoms are worse with exertion. Endorses a history of COPD. Patient did complete a course of prednisone during symptoms with not much improvement. Patient states he has been doing at home breathing treatments that have given variable levels of improvement. Patient states he was tested for COVID today at work and was negative. Patient denies any chest pain, fever, productive cough. Allergies and Home Medications Allergies Coded Allergies: No Known Drug Allergies (Unverified , 05/04/11) Patient Home Medication List Home Medication List Reviewed: Yes Albuterol Sulfate (Albuterol Sulfate) 2.5 Mg/0.5 Ml Vial.neb, 2.5 MG INH Q6H PRN for SHORTNESS OF BREATH, (Reported) Entered as Reported by: JAMIL CHAN on 08/25/21 1239 Albuterol Sulfate (Ventolin Hfa) 1 Puff Puff, 2 PUFF INH Q4H PRN for SHORTNESS OF BREATH, (Reported) Entered as Reported by: JAMIL CHAN on 08/25/21 1239 Cetirizine HCl (Cetirizine HCl) 10 Mg Tablet, 10 MG PO DAILY, (Reported) Entered as Reported by: JAMIL CHAN on 08/25/21 1239 Fluticasone Propionate (Flonase Allergy Relief) 50 Mcg/Actuation [place].susp, 1 SPRAY NS DAILY, (Reported) Entered as Reported by: NGOC BUTCHER on 11/24/21 0945 Fluticasone/Salmeterol (Advair 500-50 Diskus) 1 Each Blst.w.dev, 1 EACH IH BID PRN for SHORTNESS OF BREATH, (Reported) Entered as Reported by: JAMIL CHAN on 08/25/21 1241 Levothyroxine Sodium (Levothyroxine Sodium) 137 Mcg Tablet, 137 MCG PO DAILY, (Reported) Entered as Reported by: JAMIL CHAN on 08/25/21 1239 Metoprolol Succinate (Metoprolol Succinate) 25 Mg Tab.er.24h, 25 MG PO DAILY, (Reported) Entered as Reported by: JAMIL CHAN on 08/25/21 1239 Nirmatrelvir/Ritonavir (Paxlovid 300-100 mg Pack (Eua)) 300 Mg (150 Mg X 2)-100 Mg Tab.ds.pk, 1 EACH PO BID Prescribed by: KEIRA PENA on 05/15/22 1355 Prednisone (Prednisone) 20 Mg Tab, 40 MG PO DAILY Prescribed by: Ignacio Grover on 06/19/222013 Review of Systems Review of Systems Constitutional: no symptoms reported EENTM: no symptoms reported Respiratory: see HPI, cough Cardiovascular: no symptoms reported Gastrointestinal: no symptoms reported Genitourinary: no symptoms reported Musculoskeletal: no symptoms reported Skin: no symptoms reported Psychiatric/Neurological: No Symptoms Reported Hematologic/Lymphatic: No Symptoms Reported Past Sgatztq-Wtssti-Hxgdeo Hx Patient Social History Tobacco Use?: No Use of E-Cig and/or Vaping dev: No Substance use?: No Alcohol Use?: No Pt feels they are or have been: No Immunizations Up To Date Tetanus Booster (TDap): Less than 5yrs PED Vaccines UTD: Yes First/Initial COVID19 Vaccinat: RECEIVED, UNK WHEN Second COVID19 Vaccination Elian: RECEIVED, UNK WHEN Third COVID19 Vaccination Date: 2021 COVID19 Vaccine Night Filler: UNK Seasonal Allergies Seasonal Allergies: No (SEASONAL) Past Medical History Surgery/Hospitalization HX: COPD, hypothyroid, HTN, CHRONIC CP Surgeries: Yes (HEART CATH 2012--NORMAL) Cardiac Respiratory: Yes (COVID-19 infection 2020) Sleep Apnea, COPD Currently Using CPAP: Yes Currently Using BIPAP: No Cardiac: Yes Hypertension Neurological: No Reproductive Disorders: No Genitourinary: No Gastrointestinal: No Musculoskeletal: No Endocrine: Yes Hypothyroidsim HEENT: No Cancer: No Psychosocial: Yes Anxiety Integumentary: No Blood Disorders: No Family Medical History No Pertinent Family Hx, Heart Disease STRESS TEST 08/24/[address] ROJO: IMPRESSION: 1. Normal heart rate and a blunted blood pressure response to regadenoson. 2. There was no chest discomfort, arrhythmias, or electrocardiogram changes during the test. 3. There was normal myocardial perfusion in all segments without evidence of infarction or ischemia. 4. There was normal wall motion in all segments with a calculated ejection fraction of 70%. HAD NORMAL CARDIAC CATH IN 2012 Physical Exam Vital Signs - First Documented 06/19/22 17:20 Temp 36.4 Pulse 81 Resp 22 B/P (MAP) 165/110 (128) Pulse Ox 97 O2 Delivery Room Air Capillary Refill : Height: 5'9.00" Weight: 210lbs. 0oz. 95.098637lp; 37.00 BMI Method:Stated General Appearance: WD/WN, no apparent distress HEENT: PERRL/EOMI, normal ENT inspection, TMs normal, pharynx normal Neck: non-tender, full range of motion, supple, normal inspection Respiratory: chest non-tender, normal breath sounds, no respiratory distress, no accessory muscle use, wheezing, expiration Cardiovascular: regular rate, rhythm, no murmur Gastrointestinal: normal bowel sounds, no organomegaly, no pulsatile mass Extremities: normal range of motion, non-tender Neurologic/Psychiatric: no motor/sensory deficits, alert, normal mood/affect, oriented x 3 Skin: normal color, warm/dry Progress/Results/Core Measures Suspected Sepsis SIRS Temperature: Pulse: 81 Respiratory Rate: 22 Laboratory Tests 06/19/22 17:40: White Blood Count 8.8 Blood Pressure 165 /110 Mean: 128 Laboratory Tests 06/19/22 17:40: Creatinine 1.05, Platelet Count 238, Total Bilirubin 0.4 Results/Orders Lab Results Laboratory Tests Test 06/19/22 17:40 Range/Units White Blood Count 8.8 4.3-11.0 10^3/uL Red Blood Count 4.58 4.30-5.52 10^6/uL Hemoglobin 13.0 L 13.3-17.7 g/dL Hematocrit 41 40-54 % Mean Corpuscular Volume 89 80-99 fL Mean Corpuscular Hemoglobin 28 25-34 pg Mean Corpuscular Hemoglobin Concent 32 32-36 g/dL Red Cell Distribution Width 14.1 10.0-14.5 % Platelet Count 238 130-400 10^3/uL Mean Platelet Volume 10.0 9.0-12.2 fL Immature Granulocyte % (Auto) 0 % Neutrophils (%) (Auto) 60 42-75 % Lymphocytes (%) (Auto) 26 12-44 % Monocytes (%) (Auto) 6 0-12 % Eosinophils (%) (Auto) 7 0-10 % Basophils (%) (Auto) 1 0-10 % Neutrophils # (Auto) 5.3 1.8-7.8 10^3/uL Lymphocytes # (Auto) 2.3 1.0-4.0 10^3/uL Monocytes # (Auto) 0.5 0.0-1.0 10^3/uL Eosinophils # (Auto) 0.6 H 0.0-0.3 10^3/uL Basophils # (Auto) 0.1 0.0-0.1 10^3/uL Immature Granulocyte # (Auto) 0.0 0.0-0.1 10^3/uL D-Dimer 0.12 0.00-0.49 UG/ML Sodium Level 139 135-145 MMOL/L Potassium Level 4.1 3.6-5.0 MMOL/L Chloride Level 106 98-107 MMOL/L Carbon Dioxide Level 24 21-32 MMOL/L Anion Gap 9 5-14 MMOL/L Blood Urea Nitrogen 11 7-18 MG/DL Creatinine 1.05 0.60-1.30 MG/DL Estimat Glomerular Filtration Rate 91 BUN/Creatinine Ratio 10 Glucose Level 82 70-105 MG/DL Calcium Level 9.3 8.5-10.1 MG/DL Corrected Calcium 9.3 8.5-10.1 MG/DL Magnesium Level 1.9 1.6-2.4 MG/DL Total Bilirubin 0.4 0.1-1.0 MG/DL Aspartate Amino Transf (AST/SGOT) 17 5-34 U/L Alanine Aminotransferase (ALT/SGPT) 29 0-55 U/L Alkaline Phosphatase 104 40-136 U/L Troponin I < 0.028 <0.028 NG/ML B-Type Natriuretic Peptide 11.8 <100.0 PG/ML Total Protein 7.6 6.4-8.2 GM/DL Albumin 4.0 3.2-4.5 GM/DL My Orders Orders - GROVER,IGNACIO PHOTOSTAT OPERATOR HELPER Cbc With Automated Diff (06/19/22 17:38) Comprehensive Metabolic Panel (06/19/22 17:38) Bnp [place] (06/19/22 17:38) Fibrin Degradation Products (06/19/22 17:38) Magnesium (06/19/22 17:38) Ekg Tracing (06/19/22 17:38) O2 (06/19/22 17:38) Ed Iv/Invasive Line Start (06/19/22 17:38) Monitor-Rhythm Ecg Trace Only (06/19/22 17:38) Chest Pa/Lat (2 View) (06/19/22 17:38) Albuterol/Ipra Inhalation Soln (Duoneb I (06/19/22 17:45) Methylprednisolone Sod Succ (Solu-Medrol (06/19/22 17:38) Svn Small Volume Nebulizer (06/19/22 17:38) Troponin I Gabby (06/19/22 17:38) Albuterol/Ipra Inhalation Soln (Duoneb I (06/19/22 19:15) Svn Small Volume Nebulizer (06/19/22 19:12) Medications Given in ED Vital Signs/I&O 06/19/22 06/19/22 06/19/22 06/19/22 17:20 17:30 18:11 19:34 Temp 36.4 Pulse 81 Resp 22 B/P (MAP) 165/110 (128) Pulse Ox 97 97 94 O2 Delivery Room Air Room Air Room Air Room Air 06/19/22 20:20 Pulse 89 B/P (MAP) 125/89 Pulse Ox 96 O2 Delivery Room Air Capillary Refill : Blood Pressure Mean: 128 Progress Note : Progress Note Patient is nontoxic and well-hydrated on exam. Mild expiratory wheezing noted on lung auscultation. No increased work of breathing noted. Vital signs are reassuring. Patient is not hypoxic. Orders placed for CBC, CMP, BNP, D-dimer, magnesium, EKG, chest x-ray, and troponin. DuoNeb and methylprednisolone also ordered. CBC and CMP largely unremarkable. BNP is not elevated. D-dimer is not elevated. Troponin is not elevated. Chest x-ray acutely negative. EKG without acute ischemic change or arrhythmia. Patient's oxygen saturations never dipped below 90% even while sleeping. No indication for admission at this time. He did state the DuoNeb helped with his work of breathing. Will discharge home with a prescription for a short course of prednisone. Discussed importance of close follow-up with PCP. Return precautions for urgent symptomology discussed. Patient verbalized understanding. ECG EKG : EKG Time: 17:50 Rate: 72 Rhythm: Normal Sinus Intervals: Normal ECG Impression: Normal Departure Impression Primary Impression: COPD exacerbation Disposition: HOME, SELF-CARE Condition: Stable Departure-Patient Inst. Decision time for Depature: 20:10 Referrals: [facility] (PCP) Primary Care Physician JOSE LUIS HAYDEN APRN (Family) Primary Care Physician Patient Instructions: COPD Exacerbation, Adult ED Add. Discharge Instructions: Follow-up with your regular physician as soon as possible for further evaluation. Please return to the emergency department for significant worsening of your shortness of breath or any worsening chest pain. All discharge instructions reviewed with patient and/or family. Voiced understa nding. Scripts Prednisone (Prednisone) 20 Mg Tab 40 MG PO DAILY for 4 Days, #8 TAB 0 Refills Prov: IGNACIO GROVER PHOTOSTAT OPERATOR HELPER 06/19/22 IGNACIO GROVER PHOTOSTAT OPERATOR HELPER Jun 19, 2022 18:50
--- NOTE | 2022-06-19 18:51 | Diagnostic Imaging Report ---
EXAMINATION: CHEST (PA AND LATERAL) CLINICAL INDICATION: 42-year-old male, shortness of breath. COMPARISON: October 18, 2021. FINDINGS: Heart size and mediastinal contours are unchanged. There is no identified pneumothorax. There is no large pleural effusion. There is no identified focal airspace consolidation. There are mild degenerative changes of the spine. IMPRESSION: 1. No identified acute cardiopulmonary abnormality. Dictated by: Dictated on workstation # [id number]
[2022-06-19] MEDS ORDERED: PRD20T PO (20:14)
[2022-06-19 20:20] VITALS: BP 125/89
== END 2022-06-19 20:20 | disposition home or self-care (01) ==
LOC: EDUNIT# 17:16 → ER 17:18
DX: J44.1 Chronic obstructive pulmonary disease with (acute) exacerbation (principal); Z86.16 Personal history of COVID-19; Z28.310 Unvaccinated for COVID-19
CPT/HCPCS: 36415; 71046; 80053; 83735; 83880; 84484; 85025; 85379; 93005; 93041; 94640

== ENCOUNTER → 2022-07-06 | Outpatient (CLI) | payer OTHER ==
[~2022-07-06] MED LIST changes: +RT-ALBUTEROL SULF 2.5 MG/3 ML PRE-MIX VIAL INH ONE
== END ==
LOC: RT 15:45
PROVIDERS: ATTEND Nurse Practitioner Family
DX: J44.9 Chronic obstructive pulmonary disease, unspecified (principal)
CPT/HCPCS: 94060; 94726; 94729

== ENCOUNTER → 2022-08-08 | Outpatient (RCR) | payer OTHER ==
[~2022-08-08] VITALS: Ht 175.3 cm; Wt 115.5 kg
[~2022-08-08] MED LIST changes: +LEVO100T7 PO; +OMALIZUMAB 150 MG (XOLAIR) VIAL FREE STOCK SQ SCH; -RT-ALBUTEROL SULF 2.5 MG/3 ML PRE-MIX VIAL INH ONE; +TIOT18CA2 IH
[2022-08-08 14:50] VITALS: BP 148/86
== END ==
LOC: SDC 13:06
PROVIDERS: ATTEND Nurse Practitioner Family
DX: J45.50 Severe persistent asthma, uncomplicated (principal)
CPT/HCPCS: 96372

== ENCOUNTER 2022-09-04 08:45 | Outpatient (RCR) | payer OTHER ==
[~2022-09-04] VITALS: Ht 175 cm; Wt 115.5 kg
[~2022-09-04 08:45] MED LIST changes: -OMALIZUMAB 150 MG (XOLAIR) VIAL FREE STOCK SQ SCH
[2022-09-04] MEDS ORDERED: OMALIZUMAB 150 MG (XOLAIR) VIAL FREE STOCK SQ SCH (09:00)
[2022-09-04 09:13] VITALS: BP 131/88
== END 2022-09-08 | disposition home or self-care (01) ==
LOC: SDC 08:45
PROVIDERS: ATTEND Nurse Practitioner Family
DX: J45.50 Severe persistent asthma, uncomplicated (principal)
CPT/HCPCS: 96372

== ENCOUNTER 2022-09-04 09:16 | Emergency (ER) | payer OTHER ==
[~2022-09-04] VITALS: Ht 182.8 cm; Wt 115.5 kg
--- NOTE | 2022-09-04 09:43 | ED Chest Pain ---
General Chief Complaint: Chest Pain Stated Complaint: CHEST PAINS | Nursing Triage Note: reports was seen in [place] for chest pain last night verbalizes he was sent home from [place] and slept in his car then went back in reported chest pain to them again and they told him they called dr cisneros and he was to have an appointment this am. verbalies he was having chest pain started yesterday afternoon then started again at 02-0300this am. states he must have passed out because he woke up on the floor after getting up to go to the bathroom around 0500. now feels "really weak and tired" rates chest pain at a 7\\10. denies SOB Source: patient Exam Limitations: no limitations History of Present Illness Date Seen by Provider: Sep 04, 2022 Time Seen by Provider: 09:25 Initial Comments 42-year-old male presents to the emergency department today for chest pain. He describes as a pressure sensation to his left anterior chest wall. It has been present since yesterday afternoon at which point he went to an emergency room in [place]. It sounds as though he had to sets of cardiac enzymes which were negative and was ultimately discharged home after about 6 hours. He still had the pain upon discharge however it did seem to subside very briefly in the evening. He woke up again at about 2:00 this morning and noticed he had the same pain once again. It has been persistent since that time. He does have history of chest pains. He had a heart cath that was clean in 2011 per his report and he also had a stress test in August 2021 which was reportedly negative. He sees Dr. Cisneros here due to his family history of cardiac disease. He himself has no significant cardiac history. He does have COPD but states he was never a smoker. He also has high blood pressure, high cholesterol. He is not diabetic. Regarding the pain, there are no aggravating or alleviating factors. No associated symptoms. He was well prior to the onset of his current illness. All other systems reviewed and negative except documented per HPI. Voice recognition software was used to help create this chart Allergies and Home Medications Allergies Coded Allergies: No Known Drug Allergies (Unverified , 05/04/11) Patient Home Medication List Home Medication List Reviewed: Yes Albuterol Sulfate (Albuterol Sulfate) 2.5 Mg/0.5 Ml Vial.neb, 2.5 MG INH TID, (Reported) Entered as Reported by: JAMIL CHAN on 08/25/21 1239 Albuterol Sulfate (Ventolin Hfa) 1 Puff Puff, 2 PUFF INH Q4H PRN for SHORTNESS OF BREATH, (Reported) Entered as Reported by: JAMIL CHAN on 08/25/21 1239 Aspirin (Aspirin EC) 81 Mg Tablet.dr, 81 MG PO DAILY, (Reported) Entered as Reported by: TODD RIVERA on 08/08/22 1620 Cetirizine HCl (Cetirizine HCl) 10 Mg Tablet, 10 MG PO DAILY, (Reported) Entered as Reported by: JAMIL CHAN on 08/25/21 1239 Fluticasone Propionate (Flonase Allergy Relief) 50 Mcg/Actuation [place].susp, 1 SPRAY NS DAILY, (Reported) Entered as Reported by: NGOC BUTCHER on 11/24/21 0945 Fluticasone/Salmeterol (Advair 500-50 Diskus) 1 Each Blst.w.dev, 1 EACH IH BID PRN for SHORTNESS OF BREATH, (Reported) Entered as Reported by: JAMIL CHAN on 08/25/21 1241 Levothyroxine Sodium (Levothyroxine Sodium) 100 Mcg Tablet, 100 MCG PO DAILY, (Reported) Entered as Reported by: TODD RIVERA on 08/08/22 1617 Metoprolol Succinate (Metoprolol Succinate) 25 Mg Tab.er.24h, 25 MG PO DAILY, (Reported) Entered as Reported by: JAMIL CHAN on 08/25/21 1239 Prednisone (Prednisone) 20 Mg Tab, 40 MG PO DAILY Prescribed by: Ignacio Grover on 06/19/222013 Tiotropium [place] (Spiriva) 18 Mcg Aerp, 1 INH IH DAILY, (Reported) Entered as Reported by: TODD RIVERA on 08/08/22 162 Review of Systems Review of Systems Constitutional: no symptoms reported Past Efuqquy-Rxgegm-Zsydfg Hx Patient Social History Tobacco Use?: No Use of E-Cig and/or Vaping dev: No Substance use?: No Alcohol Use?: No Pt feels they are or have been: No Immunizations Up To Date Tetanus Booster (TDap): Less than 5yrs PED Vaccines UTD: Yes Influenza Vaccine Up-to-Date: Yes; Up-to-Date First/Initial COVID19 Vaccinat: RECEIVED, UNK WHEN Second COVID19 Vaccination Elian: RECEIVED, UNK WHEN Third COVID19 Vaccination Date: 2021 Seasonal Allergies Seasonal Allergies: No (SEASONAL) Past Medical History Surgery/Hospitalization HX: COPD, hypothyroid, HTN, CHRONIC CP heart cath 2011 Surgeries: Yes (HEART CATH 2012--NORMAL) Cardiac Respiratory: Yes (COVID-19 infection 2020) Sleep Apnea, COPD Currently Using CPAP: Yes Currently Using BIPAP: No Cardiac: Yes Hypertension Neurological: No Reproductive Disorders: No Genitourinary: No Gastrointestinal: No Musculoskeletal: No Endocrine: Yes Hypothyroidsim HEENT: No Cancer: No Psychosocial: Yes Anxiety Integumentary: No Blood Disorders: No Family Medical History Reviewed Nursing Family Hx No Pertinent Family Hx, Heart Disease STRESS TEST 08/24/[address] ROJO: IMPRESSION: 1. Normal heart rate and a blunted blood pressure response to regadenoson. 2. There was no chest discomfort, arrhythmias, or electrocardiogram changes during the test. 3. There was normal myocardial perfusion in all segments without evidence of infarction or ischemia. 4. There was normal wall motion in all segments with a calculated ejection fraction of 70%. HAD NORMAL CARDIAC CATH IN 2012 Physical Exam Vital Signs Vital Signs - First Documented 09/04/22 09:25 Temp 36.5 Pulse 79 Resp 20 B/P (MAP) 127/90 (102) Pulse Ox 96 O2 Delivery Room Air Capillary Refill : Less Than 3 Seconds Height, Weight, BMI Height: 5'9.00" Weight: 210lbs. 0oz. 95.917442su; 34.00 BMI Method:Stated General Appearance: No Apparent Distress, WD/WN HEENT: Normal ENT Inspection, Pharynx Normal Neck: Full Range of Motion, Normal Inspection, Non Tender, Supple Respiratory: Chest Non Tender, Normal Breath Sounds, No Accessory Muscle Use, No Respiratory Distress, Wheezing (Slight expiratory wheeze bilaterally) Cardiovascular: Regular Rate, Rhythm, No Murmur, Normal Peripheral Pulses Gastrointestinal: Normal Bowel Sounds, No Organomegaly, Non Tender, Soft Extremity: Normal Capillary Refill, Normal Inspection, Normal Range of Motion, Non Tender, No Calf Tenderness, No Pedal Edema Neurologic/Psychiatric: Alert, Oriented x3, No Motor/Sensory Deficits Skin: Normal Color, Warm/Dry Progress/Results/Core Measures Results/Orders Lab Results Laboratory Tests Test 09/04/22 09:35 Range/Units White Blood Count 10.7 4.3-11.0 10^3/uL Red Blood Count 4.99 4.30-5.52 10^6/uL Hemoglobin 14.2 13.3-17.7 g/dL Hematocrit 44 40-54 % Mean Corpuscular Volume 89 80-99 fL Mean Corpuscular Hemoglobin 29 25-34 pg Mean Corpuscular Hemoglobin Concent 32 32-36 g/dL Red Cell Distribution Width 13.1 10.0-14.5 % Platelet Count 262 130-400 10^3/uL Mean Platelet Volume 9.9 9.0-12.2 fL Immature Granulocyte % (Auto) 0 % Neutrophils (%) (Auto) 85 H 42-75 % Lymphocytes (%) (Auto) 11 L 12-44 % Monocytes (%) (Auto) 3 0-12 % Eosinophils (%) (Auto) 0 0-10 % Basophils (%) (Auto) 0 0-10 % Neutrophils # (Auto) 9.1 H 1.8-7.8 10^3/uL Lymphocytes # (Auto) 1.2 1.0-4.0 10^3/uL Monocytes # (Auto) 0.3 0.0-1.0 10^3/uL Eosinophils # (Auto) 0.0 0.0-0.3 10^3/uL Basophils # (Auto) 0.0 0.0-0.1 10^3/uL Immature Granulocyte # (Auto) 0.0 0.0-0.1 10^3/uL Sodium Level 137 135-145 MMOL/L Potassium Level 5.4 H 3.6-5.0 MMOL/L Chloride Level 107 98-107 MMOL/L Carbon Dioxide Level 18 L 21-32 MMOL/L Anion Gap 12 5-14 MMOL/L Blood Urea Nitrogen 14 7-18 MG/DL Creatinine 0.98 0.60-1.30 MG/DL Estimat Glomerular Filtration Rate 99 BUN/Creatinine Ratio 14 Glucose Level 122 H 70-105 MG/DL Calcium Level 9.6 8.5-10.1 MG/DL Corrected Calcium 9.4 8.5-10.1 MG/DL Total Bilirubin 0.3 0.1-1.0 MG/DL Aspartate Amino Transf (AST/SGOT) 21 5-34 U/L Alanine Aminotransferase (ALT/SGPT) 24 0-55 U/L Alkaline Phosphatase 94 40-136 U/L Troponin I < 0.028 <0.028 NG/ML Total Protein 8.3 H 6.4-8.2 GM/DL Albumin 4.3 3.2-4.5 GM/DL My Orders Orders - SAMIRAGEORGIA Cori DO Ekg Tracing (09/04/22 09:22) Cbc With Automated Diff (09/04/22 09:39) Chest 1 View, Ap/Pa Only (09/04/22 09:39) Comprehensive Metabolic Panel (09/04/22 09:39) Monitor-Rhythm Ecg Trace Only (09/04/22 09:39) Ed Iv/Invasive Line Start (09/04/22 09:39) Troponin I Gabby (09/04/22 09:39) Ketorolac Injection (Toradol Injection) (09/04/22 09:45) Medications Given in ED Current Medications Medications Dose Ordered Sig/Anatoly Route Start Time Stop Time Status Last Admin Dose Admin Ketorolac Tromethamine 15 mg ONCE ONCE IVP 09/04/22 09:45 09/04/22 09:46 DC 09/04/22 09:58 15 MG Vital Signs/I&O 09/04/22 09:25 Temp 36.5 Pulse 79 Resp 20 B/P (MAP) 127/90 (102) Pulse Ox 96 O2 Delivery Room Air Blood Pressure Mean: 102 Comment Sinus rhythm with a rate of 71 bpm. Normal intervals. Normal axis. No ST or T wave abnormalities. No ectopy. No STEMI. Departure Communication (Admissions) Obtained and reviewed records from [facility] from 09/03. Patient had 2 negative sets of high-sensitivity troponin at 1450 and then again at 1549. Get a D-dimer at that time as well. The rest of his work-up was unremarkable. His EKG is unchanged from that visit and is nonischemic. Also reviewed all records available to me including previous heart cath and stress testing. I independently reviewed the chest x-ray here showing no acute abnormality. Patient's pain has improved somewhat with Toradol though not completely alleviated. His EKG is nonischemic. Troponin here is negative, along with 2 negative troponins at previous hospital yesterday afternoon. He is very low risk for ACS at this time and stable for discharge with primary care follow-up. D-dimer was negative there is well, no indication for CT angiography or evidence for PE. This may be musculoskeletal in nature however I do not believe it is from an emergent condition at this time. He is discharged home in stable condition with supportive care Impression Primary Impression: Chest pain with low risk of acute coronary syndrome Disposition: HOME, SELF-CARE Condition: Stable Departure-Patient Inst. Referrals: JOSE LUIS HAYDEN APRN (PCP/Family) Primary Care Physician Patient Instructions: Chest Pain Add. Discharge Instructions: After evaluation I think there is very low likelihood that your pains are coming from your heart or lungs, or any other emergent condition at this time. It is possible this is coming from the muscles. Use anti-inflammatory medicines vvny-wsb-hprptts such as Motrin or Aleve as needed. Increase your fluids at home and rest. Should your symptoms persist I recommend you follow-up with your primary doctor for further evaluation and treatment recommendations. Return to the emergency department should your symptoms change in any way concerning to you All discharge instructions reviewed with patient and/or family. Voiced understanding. GEORGIA HOGAN DO Sep 04, 2022 09:43
[2022-09-04] MEDS ORDERED: KETOROLAC 15 MG/ML VIAL IVP ONE (09:45)
[2022-09-04 09:46] LABS: BASOPHILS % (AUTO) 0 % (0-10); EOSINOPHILS % (AUTO) 0 % (0-10); HEMATOCRIT 44 % (40-54); HEMOGLOBIN 14.2 g/dL (13.3-17.7); LYMPHOCYTES # (AUTO) 1.2 10^3/uL (1.0-4.0); LYMPHOCYTES % (AUTO) 11 % (12-44); MEAN CORPUSCULAR HEMOGLOBIN 29 pg (25-34); MEAN CORPUSCULAR HGB CONC 32 g/dL (32-36); MEAN CORPUSCULAR VOLUME 89 fL (80-99); MEAN PLATELET VOLUME 9.9 fL (9.0-12.2); MONOCYTES # (AUTO) 0.3 10^3/uL (0.0-1.0); MONOCYTES % (AUTO) 3 % (0-12); NEUTROPHILS # (AUTO) 9.1 10^3/uL (1.8-7.8); NEUTROPHILS % (AUTO) 85 % (42-75); PLATELET COUNT 262 10^3/uL (130-400); WHITE BLOOD COUNT 10.7 10^3/uL (4.3-11.0)
[2022-09-04 09:57] LABS: ALBUMIN 4.3 GM/DL (3.2-4.5); POTASSIUM 5.4 MMOL/L (3.6-5.0)
[2022-09-04 09:58] LABS: CALCIUM 9.6 MG/DL (8.5-10.1)
[2022-09-04 10:00] LABS: TOTAL PROTEIN 8.3 GM/DL (6.4-8.2)
[2022-09-04 10:01] LABS: BILIRUBIN,TOTAL 0.3 MG/DL (0.1-1.0)
[2022-09-04 10:03] LABS: CREATININE SERUM 0.98 MG/DL (0.60-1.30)
--- NOTE | 2022-09-04 10:19 | Diagnostic Imaging Report ---
CLINICAL INDICATIONS: Patient with chest pain. EXAM: Portable chest x-ray upright view. COMPARISON: Chest x-ray dated 05/15/2022. FINDINGS: Lungs/pleura: Lungs are clear. There is no pneumothorax. There is no pleural effusion. Mediastinum: Unremarkable. Pulmonary vasculature: Unremarkable. Heart: Unremarkable. Bones/extrathoracic soft tissue: Unremarkable. IMPRESSION: There is no radiographic evidence of acute cardiopulmonary process. Dictated by: Dictated on workstation # [id number]
[2022-09-04 10:33] VITALS: BP 124/83
== END 2022-09-04 10:36 | disposition home or self-care (01) ==
LOC: EDUNIT# 09:16 → ER 09:18
DX: R07.89 Other chest pain (principal); G47.30 Sleep apnea, unspecified; Z99.89 Dependence on other enabling machines and devices
CPT/HCPCS: 36415; 71045; 80053; 84484; 85025; 93005; 93041

== ENCOUNTER 2022-10-03 13:32 | Outpatient (RCR) | payer OTHER ==
[2022-09-18 13:43] VITALS: BP 130/69
[2022-09-18] MEDS: OMALIZUMAB 150 MG (XOLAIR) VIAL FREE STOCK SQ SCH (14:00)
[~2022-10-03] VITALS: Ht 175 cm; Wt 115.5 kg
[~2022-10-03 13:32] MED LIST changes: +OMALIZUMAB 150 MG (XOLAIR) VIAL FREE STOCK SQ SCH
[2022-10-03] MEDS: OMALIZUMAB 150 MG (XOLAIR) VIAL FREE STOCK SQ SCH (13:34)
[2022-10-03 13:37] VITALS: BP 132/69
== END 2022-10-08 | disposition home or self-care (01) ==
LOC: SDC 13:32
PROVIDERS: ATTEND Nurse Practitioner Family
DX: J45.50 Severe persistent asthma, uncomplicated (principal)
CPT/HCPCS: 96372

== ENCOUNTER 2022-10-31 13:05 | Outpatient (RCR) | payer OTHER ==
[2022-10-17 12:35] VITALS: BP 152/86
[2022-10-17] MEDS: OMALIZUMAB 150 MG (XOLAIR) VIAL FREE STOCK SQ SCH (13:03)
[~2022-10-31 13:05] MED LIST changes: -OMALIZUMAB 150 MG (XOLAIR) VIAL FREE STOCK SQ SCH
[2022-10-31 13:10] VITALS: BP 124/76
[2022-10-31] MEDS: OMALIZUMAB 150 MG (XOLAIR) VIAL FREE STOCK SQ SCH (13:26)
== END 2022-11-08 | disposition home or self-care (01) ==
LOC: SDC 13:05
PROVIDERS: ATTEND Nurse Practitioner Family
DX: J45.50 Severe persistent asthma, uncomplicated (principal)
CPT/HCPCS: 96372

== ENCOUNTER 2022-11-29 13:05 | Outpatient (RCR) | payer OTHER ==
[2022-11-15 14:05] VITALS: BP 127/83
[2022-11-15] MEDS: OMALIZUMAB 150 MG (XOLAIR) VIAL FREE STOCK SQ SCH (14:21)
[2022-11-29] MEDS ORDERED: OMALIZUMAB 150 MG (XOLAIR) VIAL FREE STOCK SQ SCH (13:14)
[2022-11-29 13:31] VITALS: BP 112/73
[2022-11-29] MEDS: OMALIZUMAB 150 MG (XOLAIR) VIAL FREE STOCK SQ SCH (13:32)
== END 2022-12-08 | disposition home or self-care (01) ==
LOC: SDC 13:05
PROVIDERS: ATTEND Nurse Practitioner Family
DX: J45.50 Severe persistent asthma, uncomplicated (principal)
CPT/HCPCS: 96372

== ENCOUNTER 2022-12-27 13:33 | Outpatient (RCR) | payer OTHER ==
[2022-12-13] MEDS: OMALIZUMAB 150 MG (XOLAIR) VIAL FREE STOCK SQ SCH (14:20)
[2022-12-13 14:25] VITALS: BP 125/87
[~2022-12-27] VITALS: Ht 175.3 cm; Wt 115.5 kg
[2022-12-27] MEDS: OMALIZUMAB 150 MG (XOLAIR) VIAL FREE STOCK SQ SCH (13:50)
[2022-12-27 13:57] VITALS: BP 131/81
== END 2023-01-08 | disposition home or self-care (01) ==
LOC: SDC 13:33
PROVIDERS: ATTEND Nurse Practitioner Family
DX: J45.50 Severe persistent asthma, uncomplicated (principal)
CPT/HCPCS: 96372

== ENCOUNTER → 2023-01-10 | Outpatient (CLI) | payer OTHER ==
[2023-01-10 09:57] VITALS: BP 154/97
--- NOTE | 2023-01-10 13:28 | Cardiology Stress Test Report ---
Stress Test Report Date of Procedure/Referring: Date of Procedure: Jan 10, 2023 PCP Eneida Lockwood Aprn Admitting Physician Admitting Physician: Attending Physician: Yasmin Hawthorne Indications: CP Baseline Heart Rate: 62 Baseline Blood Pressure: Blood Pressure Systolic: 154 Blood Pressure Diastolic: 97 Baseline EKG: Baseline EKG: NSR Summary/Conclusion: Summary: In summary, the patient started exercising with a baseline heart rate, blood pressure and EKG mentioned above Patient was able to exercise for a total of 5 minutes on Ervin protocol, METs 7 Maximum heart rate 120 Maximum blood pressure 219/75 Stress EKG, Minimal nondiagnostic changes Recovery EKG , Return to baseline Conclusion: Submaximal exercise stress test, patient was unable to exercise beyond 5 minutes on standard Ervin protocol, 7 METS achieving 67% of maximal expected heart rate Appropriate heart rate response to exercise with severe hypertensive response to exercise with peak blood pressure 219/75 return to baseline during recovery Minimal nondiagnostic EKG changes with exercise return to baseline during recovery No arrhythmia detected during stress test Due to his poor exercise tolerance and did not achieve his target heart rate I recommend evaluating Lexiscan Myoview stress test CC CHINA La APRN, MD Jan 10, 2023 13:28
== END ==
LOC: CARD 09:38
PROVIDERS: ATTEND Physician Assistant
DX: R07.9 Chest pain, unspecified (principal)
CPT/HCPCS: 93017

== ENCOUNTER 2023-01-24 12:32 | Outpatient (RCR) | payer OTHER ==
[2023-01-10 11:10] VITALS: BP 145/75
[2023-01-10] MEDS: [UNRECOGNIZED DRUG - REMARK] SQ SCH (11:10)
[~2023-01-24] VITALS: Ht 175.3 cm; Wt 115.5 kg
[2023-01-24] MEDS: [UNRECOGNIZED DRUG - REMARK] SQ SCH (13:09)
[2023-01-24 13:15] VITALS: BP 140/96
== END 2023-02-08 | disposition home or self-care (01) ==
LOC: SDC 12:32
PROVIDERS: ATTEND Nurse Practitioner Family
DX: J45.50 Severe persistent asthma, uncomplicated (principal)
CPT/HCPCS: 96372

== ENCOUNTER 2023-02-07 12:14 | Outpatient (RCR) | payer OTHER ==
[2023-02-07] MEDS ORDERED: [UNRECOGNIZED DRUG - REMARK] SQ SCH (12:26)
[2023-02-07 12:41] VITALS: BP 132/82
== END 2023-02-08 | disposition home or self-care (01) ==
LOC: SDC 12:14
PROVIDERS: ATTEND Nurse Practitioner Family
DX: J45.50 Severe persistent asthma, uncomplicated (principal)
CPT/HCPCS: 96372

== ENCOUNTER 2023-04-26 13:09 | Outpatient (RCR) | payer SELFPAY ==
[2023-04-12] MEDS: [UNRECOGNIZED DRUG - REMARK] SQ SCH (17:52)
[2023-04-12 18:03] VITALS: BP 148/82
[~2023-04-26] VITALS: Wt 115.5 kg
[~2023-04-26 13:09] MED LIST changes: -MECL-149 PO; +MECL-291 PO
[2023-04-26] MEDS ORDERED: [UNRECOGNIZED DRUG - REMARK] SQ SCH (13:12)
[2023-04-26] MEDS: [UNRECOGNIZED DRUG - REMARK] SQ SCH (13:30)
[2023-04-26 13:31] VITALS: BP 130/89
== END 2023-05-10 | disposition home or self-care (01) ==
LOC: SDC 13:09
PROVIDERS: ATTEND Nurse Practitioner Family
DX: J45.50 Severe persistent asthma, uncomplicated (principal)
CPT/HCPCS: 96372

== ENCOUNTER → 2023-05-10 | Outpatient (RCR) | payer SELFPAY ==
[~2023-05-10] MED LIST changes: +[UNRECOGNIZED DRUG - REMARK] SQ SCH
[2023-05-10 13:10] VITALS: BP 160/96
== END | disposition home or self-care (01) ==
LOC: SDC 13:03
PROVIDERS: ATTEND Nurse Practitioner Family
DX: J45.50 Severe persistent asthma, uncomplicated (principal)
CPT/HCPCS: 96372